=== PATIENT | male | born 1935 | race Caucasian/White ===

== ENCOUNTER 2016-07-17 12:36 | Inpatient (IN) ==
[2016-07-17] MEDS ORDERED: Ipratropium/Albuterol Neb 3 ML ONE ×2 (12:51→12:53)
--- NOTE | 2016-07-17 12:52 | Emergency Department Note ---
Disposition Clinical Impression: Acute exacerbation of chronic obstructive airways disease Acute respiratory failure Qualifiers: Respiratory failure complication: hypoxia Qualified Code(s): J96.01 - Acute respiratory failure with hypoxia Disposition: Admitted As Inpatient Condition: Good Referrals: Dane Justin MD [Primary Care Provider] - Forms: ED Satisfaction Letter SOB HPI - General Chief Complaint: ED Shortness of Breath/Dyspnea Stated Complaint: MANAV Time Seen by Provider: 07/17/16 12:45 Source: patient Limitations: no limitations Nursing Notes Reviewed: Yes Vital Signs Reviewed: Yes - History of Present Illness Pt Subjective Complaint: shortness of breath Onset (ago): day(s) (3) Severity: moderate Consistency/Duration: constant, gradually worsening Improves with: bronchodilators Worsens with: exertion Known history of: COPD Associated symptoms: Reports: wheezing. Denies: chest pain, fever, nausea/ vomiting Treatment prior to arrival: bronchodilator, other (saw PCP sent for admission) Cough present: Yes Cough Description: Involuntary Cough Frequency: Intermittent Sputum production: No Sputum Amount: None - Related Data Home Medications Medication Instructions Recorded Confirmed Aspirin [Aspirin] 325 mg PO DAILY 01/25/16 06/06/16 Clopidogrel [Plavix] 75 mg PO DAILY 01/25/16 06/06/16 Fluticasone/Salmeterol [Advair 1 each IH PRN PRN 01/25/16 06/06/16 250-50 Diskus] Lisinopril [Zestril] 5 mg PO DAILY 01/25/16 06/06/16 Metoprolol [Lopressor] 50 mg PO DAILY 01/25/16 06/06/16 Omeprazole [PriLOSEC] 20 mg PO DAILY 01/25/16 06/06/16 Rivaroxaban [Xarelto] 10 mg PO DAILY 01/25/16 06/06/16 Simvastatin [Zocor] 40 mg PO DAILY 01/25/16 06/06/16 Tamsulosin HCl [Flomax] 0.4 mcg PO BID 01/25/16 06/06/16 Allergies Allergy/AdvReac Type Severity Reaction Status Date / Time No Known Allergies Allergy Verified 07/17/16 12:42 All systems ED: reviewed and negative except as stated. Constitutional: Denies: fever, chills Gastrointestinal: Denies: nausea, vomiting Past Medical History - Past Medical History Source: patient, old records reviewed, nursing notes reviewed Medical history: Reports: COPD, DVT, GERD, hypertension, other Psychiatric history: Reports: no psych history - Social History Smoking Status: Former smoker Smokeless Tobacco Status: No Alcohol use: Reports: occasionally Drug use: Reports: none Physical Exam - General Limitations: no limitations General appearance: alert, in distress (mild respiratory) - Head Head exam: atraumatic, normocephalic, normal inspection - Eye Eye exam: Present: normal appearance, PERRL, EOMI - Expanded Eye Exam Pupils: Left: reactive - ENT ENT exam: normal exam, normal oropharynx, mucous membranes moist - Expanded ENT Exam External ear exam: Present: normal external inspection Nose exam: negative: rhinorrhea Mouth exam: Present: normal external inspection Teeth exam: Present: normal inspection Throat exam: Present: normal inspection - Neck Neck exam: Present: normal inspection, full ROM, trachea midline - Chest Chest inspection: Present: normal inspection, symmetric chest wall rise - Respiratory Respiratory exam: Present: accessory muscle use (mild), prolonged expiratory phase (bilat) - Cardiovascular Cardiovascular exam: Present: tachycardia - Abdominal Exam Abdominal exam: Present: soft, Non-Tender. Absent: tenderness, distention, guarding, rebound, rigidity - Extremities Exam Extremities exam: Present: normal inspection, full ROM. Absent: tenderness, pedal edema - Expanded Upper Extremity Exam Shoulder exam: Present: normal inspection, full ROM Arm exam: Present: normal inspection, full ROM Elbow exam: Present: normal inspection, full ROM Forearm/Wrist exam: Present: normal inspection, full ROM Hand exam: Present: normal inspection, full ROM Vascular exam: Normal: capillary refill, radial pulse - Expanded Lower Extremity Exam Hip/Pelvis exam: Present: normal inspection, full ROM Upper leg exam: Present: normal inspection, full ROM Knee exam: Present: normal inspection, full ROM Lower leg exam: Present: normal inspection, full ROM Ankle exam: Present: normal inspection, full ROM Foot/toe exam: Present: normal inspection, full ROM Neurovascular/Tendon exam: Absent: motor deficit, sensory deficit, tendon deficit - Back Exam Back exam: Present: normal inspection, full ROM. Absent: tenderness - Neurological Exam Neurological exam: Present: alert, oriented X3 - Expanded Neurological Exam Patient oriented to: Present: person, place, time Coma Scale Eye Opening: Spontaneous Coma Scale Motor Response: Obeys Commands Coma Scale Verbal Response: Oriented Coma Scale Total: 15 - Psychiatric Psychiatric exam: Present: normal affect, normal mood - Skin Skin exam: Present: warm, dry, intact, normal color Course - Reevaluation(s) Reevaluation #1: Dr. Singletary accepts Time: 14:16 Reevaluation #2: breathing less labored on 2LNC oxygen speaking without difficulty . Time: 14:17 Vital Signs Temperature 98.5 F 07/17/16 12:37 Pulse Rate 86 07/17/16 12:37 Respiratory Rate 24 07/17/16 12:37 Blood Pressure 142/67 07/17/16 12:37 O2 Sat by Pulse Oximetry 91 L 07/17/16 12:37 Temperature 98.5 F 07/17/16 12:37 Pulse Rate 86 07/17/16 12:37 Respiratory Rate 24 07/17/16 12:37 Blood Pressure 142/67 07/17/16 12:37 O2 Sat by Pulse Oximetry 91 L 07/17/16 12:37 Shortness of Breath/Dyspnea - Differential Diagnosis Likely: acute exacerbation of chronic obstructive airways disease, congestive heart failure, pneumonia, asthma with exacerbation, pulmonary embolism, pneumothorax, arrhythmia - Medical Records Medical records reviewed: Yes I reviewed the patient's medical records. - Lab Data Lab results reviewed: Yes I reviewed the patient's lab results. Result diagrams: 07/17/16 13:05 07/17/16 13:05 Lab Results 07/17/16 07/17/16 07/17/16 Range/Units 13:05 13:05 13:05 WBC 8.8 (4.3-11.1) K/mcL RBC 4.30 (4.19-5.50) M/mcL Hgb 11.5 L (12.9-16.9) g/dL Hct 36.3 L (37.5-50.1) % MCV 84.4 (83.0-100.0) fL MCH 26.7 L (28.0-33.3) pg MCHC 31.7 (31.6-35.5) g/dL RDW 14.7 H (11.5-14.5) % Plt Count 222 (140-400) K/mcL MPV 10.7 (9.4-12.4) fL Immature Gran % 0.2 (0-4) % Seg Neutrophils % 76.9 % Lymphocytes % 9.8 % Monocytes % 11.9 % Eosinophils % 0.9 % Basophils % 0.3 % Neutrophils # 6.7 (1.6-8.9) K/mcL Lymphocytes # 0.9 (0.6-4.6) K/mcL Monocytes # 1.0 (0.0-1.3) K/mcL Eosinophils # 0.1 (0.0-0.6) K/mcL Basophils # 0.0 (0.0-0.2) K/mcL PT 21.3 H (9.4-12.1) Seconds INR 1.9 Sodium 131 L (136-145) mEq/L Potassium 4.7 H (3.5-4.5) mEq/L Chloride 97 L (98-109) mEq/L Carbon Dioxide 24 (19-29) mEq/L BUN 11 (8-26) mg/dL Creatinine 0.98 (0.72-1.25) mg/dL Est GFR ( Amer) > 60 (> 60) Est GFR (Non-Af Amer) > 60 (> 60) BUN/Creatinine Ratio 11 (6-26) Glucose 106 H (70-99) mg/dL Calculated Osmolality 272 L (280-300) Calcium 9.5 (8.6-10.8) mg/dL Troponin I (0-0.03) ng/mL B-Natriuretic Peptide (0-100) pg/mL 07/17/16 07/17/16 Range/Units 13:05 13:05 WBC (4.3-11.1) K/mcL RBC (4.19-5.50) M/mcL Hgb (12.9-16.9) g/dL Hct (37.5-50.1) % MCV (83.0-100.0) fL MCH (28.0-33.3) pg MCHC (31.6-35.5) g/dL RDW (11.5-14.5) % Plt Count (140-400) K/mcL MPV (9.4-12.4) fL Immature Gran % (0-4) % Seg Neutrophils % % Lymphocytes % % Monocytes % % Eosinophils % % Basophils % % Neutrophils # (1.6-8.9) K/mcL Lymphocytes # (0.6-4.6) K/mcL Monocytes # (0.0-1.3) K/mcL Eosinophils # (0.0-0.6) K/mcL Basophils # (0.0-0.2) K/mcL PT (9.4-12.1) Seconds INR Sodium (136-145) mEq/L Potassium (3.5-4.5) mEq/L Chloride (98-109) mEq/L Carbon Dioxide (19-29) mEq/L BUN (8-26) mg/dL Creatinine (0.72-1.25) mg/dL Est GFR ( Amer) (> 60) Est GFR (Non-Af Amer) (> 60) BUN/Creatinine Ratio (6-26) Glucose (70-99) mg/dL Calculated Osmolality (280-300) Calcium (8.6-10.8) mg/dL Troponin I 0.01 (0-0.03) ng/mL B-Natriuretic Peptide 198 H (0-100) pg/mL - Radiology Data Radiology results reviewed: Yes I reviewed the patient's radiology results. - EKG Data EKG shows normal: Reports: sinus rhythm Rate: Reports: normal (83) Rhythm: Reports: NSR [place]/QRS: Reports: normal Interpretation: Reports: nonspecific ST-T wave changes
[2016-07-17] MEDS ORDERED: methylPREDNISolone 125 MG/2 ML VIAL IVP ONE (13:21)
[2016-07-17 13:24] LABS: Basophils % 0.3 %; Eosinophils # 0.1 K/mcL (0.0-0.6); Eosinophils % 0.9 %; Hematocrit 36.3 % (37.5-50.1); Hemoglobin 11.5 g/dL (12.9-16.9); Immature Granulocytes % 0.2 % (0-4); Lymphocytes # 0.9 K/mcL (0.6-4.6); Lymphocytes % 9.8 %; Mean Corpuscular HGB Conc 31.7 g/dL (31.6-35.5); Mean Corpuscular Hemoglobin 26.7 pg (28.0-33.3); Mean Corpuscular Volume 84.4 fL (83.0-100.0); Mean Platelet Volume 10.7 fL (9.4-12.4); Monocytes % 11.9 %; Neutrophils # 6.7 K/mcL (1.6-8.9); Platelet Count 222 K/mcL (140-400); Red Cell Distribution Width 14.7 % (11.5-14.5); Segmented Neutrophils % 76.9 %
[2016-07-17 13:29] LABS: INR 1.9; Prothrombin Time 21.3 Seconds (9.4-12.1)
[2016-07-17 13:38] LABS: BUN/Creatinine Ratio 11 (6-26); Blood Urea Nitrogen 11 mg/dL (8-26); Calcium 9.5 mg/dL (8.6-10.8); Carbon Dioxide 24 mEq/L (19-29); Chloride 97 mEq/L (98-109); Glucose 106 mg/dL (70-99); Osmolality,Calculated 272 (280-300); Potassium 4.7 mEq/L (3.5-4.5); Sodium 131 mEq/L (136-145); eGFR For African Americans > 60 (> 60); eGFR For Non-African Americans > 60 (> 60)
[2016-07-17] MEDS ORDERED: Levofloxacin 750 MG/150 ML 750 MG/150 ML BAG IVPB ONE (13:46)
[2016-07-17] MEDS ORDERED: Naloxone 0.4 MG/ML INJ IVP PRN (15:04)
[2016-07-17] MEDS ORDERED: Ibuprofen 400 MG TABLET PO PRN (15:04)
--- NOTE | 2016-07-17 15:17 | Internal Med History&Physical ---
Date of Encounter: 07/17/16 Time of Encounter: 15:10 Assessment and Plan (1) Acute exacerbation of chronic obstructive airways disease Current visit: Yes Status: Acute Patient with increased cough and SOB. Dyspnic on presentation to ED with RR of 24, and satting 91% on RA. Given 125mg of Methylprednisolone, duoneb treatment and levequin in ED with symptom improvement. CXR ordered 60mg methylprednisolone IVP Q12hr Duoneb treatments QIDR Albuterol nebulizer Q2hr PRN titrate O2 to maintain O2 saturation > 92% continue Levaquin IVPB daily (2) Hypertension Current visit: Yes Status: Acute Continue home doses of metoprolol and lisinopril Qualifiers: Hypertension type: essential hypertension Qualified Code(s): I10 - Essential (primary) hypertension (3) Hypercoagulable state Current visit: No Status: Chronic Patient with history of multiple DVTs and has been evaluated by Hematology. He is on aspirin, plavix and Xarelto. Continue home doses of aspirin, plavix and xarelto. (4) DVT prophylaxis Current visit: Yes Status: Acute Encourage ambulation anti-embolic stockings Continue home dose of Xarelto Internal Medicine - H&P: HPI Chief complaint: shortness of breath Admitted From: Emergency Dept Plans for Post Hospital Care: Home History of present illness: Mr. Yeung is a 81 year old male with COPD, HTN, hyperlipidemia, PVD, history of multiple DVTs, CAD, who presented to the ED with complaints of worsening cough and shortness of breath since Saturday. Patient reports he started coughing on Saturday and has had associated shortness of breath since then, getting worse. He feels like he should be able to cough something up, but has been unable to. He has had trouble sleeping because he has been coughing so much. He reports he tried his home inhalers and nebulizers without relief. He denies any fever, chills, sweats, nausea, vomiting or abdominal pain. He denies any chest pain, pain with cough or breathing, palpitations, lightheadedness or dizziness. On presentation to the ED, he was dyspnic with RR of 24 and satting 91% on room air. He was given nebulizer, oxygen and steroid and symptoms have improved. On exam, patient is alert and oriented x 3 in no distress. He is satting 94% on 2L NC. His lungs have inspiratory and expiratory wheezes. Heart has regular rate and rhythm. Past Med Surg Social Fam HX - Past Medical History Medical history: COPD, DVT, GERD, hyperlipidemia, hypertension, other Psychiatric history: no psych history - Past Surgical History Surgical History: herniorrhaphy, LE Bypass, LE vascular intervention - Social History Smoking Status: Former smoker Smokeless Tobacco Status: No Alcohol use: occasionally Drug use: none - Family History Mother Living Status: Age at : 81 Hx Family Respiratory Disorders: Yes Father Living Status: Age at : 75 Hx Family Cancer: Yes Internal Medicine - H&P: Meds Aspirin [Aspirin] 325 mg PO DAILY 01/25/16 [History] Clopidogrel [Plavix] 75 mg PO DAILY 01/25/16 [History] Fluticasone/Salmeterol [Advair 250-50 Diskus] 1 each IH BID 01/25/16 [History] Lisinopril [Zestril] 5 mg PO DAILY 01/25/16 [History] Metoprolol [Lopressor] 50 mg PO DAILY 01/25/16 [History] Omeprazole [PriLOSEC] 20 mg PO DAILY 01/25/16 [History] Rivaroxaban [Xarelto] 10 mg PO DAILY 01/25/16 [History] Tamsulosin HCl [Flomax] 0.4 mcg PO BID 01/25/16 [History] Atorvastatin [Lipitor] 40 mg PO HS 07/17/16 [History] Allergies No Known Allergies Allergy (Verified 07/17/16 12:42) All Systems PM: A 10-system review of systems was performed and is negative for pertinent findings except as documented above in the HPI. - Constitutional Constitutional: no chills, no fever(s), no night sweats - EENT Eyes: no change in vision, no discharge, no pain, no photophobia Ears: no ear discharge, no ear pain, no tinnitus Nose, mouth and throat: no dysphagia, no nasal discharge, no neck pain, no sore throat - Cardiovascular Cardiovascular ROS IM: dyspnea, no chest pain, no diaphoresis, no lightheadedness, no palpitations, no syncope - Respiratory Respiratory: cough, dyspnea, dyspnea on exertion, wheezing, no pain on inspiration, no excessive phlegm production, no pain with cough - Gastrointestinal Gastrointestinal: no abdominal pain, no diarrhea, no hematemesis, no hematochezia, no melena, no nausea, no vomiting - Musculoskeletal Musculoskeletal ROS IM: no numbness, no tingling - Integumentary Integumentary IM: no rash, no unusual bruising - Neurological Neurological ROS: no confusion, no convulsions, no focal weakness, no numbness, no tingling, no tremor(s) - Hematologic/Lymphatic Hematologic/Lymphatic: no easy bruising - Constitutional Vitals: Temp Pulse Resp BP Pulse Ox 98.5 F 86 18 144/88 91 L 07/17/16 12:37 07/17/16 12:37 07/17/16 14:58 07/17/16 14:58 07/17/16 12:37 General appearance: Present: A&O X 3, pleasant, no acute distress - Head Head exam: Present: atraumatic, normocephalic - Eye Eye exam: Present: PERRL, conjuntiva pink, sclera anicteric Pupils: Present: PERRL - Neck Neck exam general surgery: Present: supple, trachea midline. Absent: lymphadenopathy - Respiratory Respiratory exam: Present: wheezes. Absent: accessory muscle use, rales, rhonchi - Cardiovascular Cardiovascular exam: Present: RRR, +S1, +S2. Absent: diastolic murmur, gallop, rubs, systolic murmur - GI/Abdominal GI/Abdominal exam: Present: normal bowel sounds, soft, no peritoneal signs. Absent: distended, tenderness - Extremities Exam Extremities exam: Present: warm, radial pulses palpable and symetrical. Absent : calf tenderness, cyanotic, pedal edema - Neurological Exam Neurological exam: Present: CN II-XII intact, oriented X3, no focal deficits. Absent: facial droop, speech deficit - Skin Skin exam: Present: dry, intact Internal Med - H&P Results - Labs CBC & Chem 7: 07/17/16 13:05 07/17/16 13:05 Labs: All Lab Results (24 Hours) 07/17/16 07/17/16 07/17/16 Range/Units 13:05 13:05 13:05 WBC 8.8 (4.3-11.1) K/mcL RBC 4.30 (4.19-5.50) M/mcL Hgb 11.5 L (12.9-16.9) g/dL Hct 36.3 L (37.5-50.1) % MCV 84.4 (83.0-100.0) fL MCH 26.7 L (28.0-33.3) pg MCHC 31.7 (31.6-35.5) g/dL RDW 14.7 H (11.5-14.5) % Plt Count 222 (140-400) K/mcL MPV 10.7 (9.4-12.4) fL Immature Gran % 0.2 (0-4) % Seg Neutrophils % 76.9 % Lymphocytes % 9.8 % Monocytes % 11.9 % Eosinophils % 0.9 % Basophils % 0.3 % Neutrophils # 6.7 (1.6-8.9) K/mcL Lymphocytes # 0.9 (0.6-4.6) K/mcL Monocytes # 1.0 (0.0-1.3) K/mcL Eosinophils # 0.1 (0.0-0.6) K/mcL Basophils # 0.0 (0.0-0.2) K/mcL PT 21.3 H (9.4-12.1) Seconds INR 1.9 Sodium 131 L (136-145) mEq/L Potassium 4.7 H (3.5-4.5) mEq/L Chloride 97 L (98-109) mEq/L Carbon Dioxide 24 (19-29) mEq/L BUN 11 (8-26) mg/dL Creatinine 0.98 (0.72-1.25) mg/dL Est GFR ( Amer) > 60 (> 60) Est GFR (Non-Af Amer) > 60 (> 60) BUN/Creatinine Ratio 11 (6-26) Glucose 106 H (70-99) mg/dL Calculated Osmolality 272 L (280-300) Calcium 9.5 (8.6-10.8) mg/dL Troponin I (0-0.03) ng/mL B-Natriuretic Peptide (0-100) pg/mL 07/17/16 07/17/16 Range/Units 13:05 13:05 WBC (4.3-11.1) K/mcL RBC (4.19-5.50) M/mcL Hgb (12.9-16.9) g/dL Hct (37.5-50.1) % MCV (83.0-100.0) fL MCH (28.0-33.3) pg MCHC (31.6-35.5) g/dL RDW (11.5-14.5) % Plt Count (140-400) K/mcL MPV (9.4-12.4) fL Immature Gran % (0-4) % Seg Neutrophils % % Lymphocytes % % Monocytes % % Eosinophils % % Basophils % % Neutrophils # (1.6-8.9) K/mcL Lymphocytes # (0.6-4.6) K/mcL Monocytes # (0.0-1.3) K/mcL Eosinophils # (0.0-0.6) K/mcL Basophils # (0.0-0.2) K/mcL PT (9.4-12.1) Seconds INR Sodium (136-145) mEq/L Potassium (3.5-4.5) mEq/L Chloride (98-109) mEq/L Carbon Dioxide (19-29) mEq/L BUN (8-26) mg/dL Creatinine (0.72-1.25) mg/dL Est GFR ( Amer) (> 60) Est GFR (Non-Af Amer) (> 60) BUN/Creatinine Ratio (6-26) Glucose (70-99) mg/dL Calculated Osmolality (280-300) Calcium (8.6-10.8) mg/dL Troponin I 0.01 (0-0.03) ng/mL B-Natriuretic Peptide 198 H (0-100) pg/mL
[2016-07-17] MEDS: Ipratropium/Albuterol Neb 3 ML IH SCH ×2 (16:27→22:30)
[2016-07-17] MEDS: BENZOCAINE/MENTHOL 1 LOZENGE (BAG OF 6) MM PRN (22:10)
[2016-07-17] MEDS: Budesonide/Formoterol 160/4.5 MDI IH SCH (22:31)
[2016-07-18] MEDS ORDERED: methylPREDNISolone 125 MG/2 ML VIAL IVP SCH ×2 (02:00→13:00)
[2016-07-18] MEDS: BENZOCAINE/MENTHOL 1 LOZENGE (BAG OF 6) MM PRN (02:04)
[2016-07-18] MEDS: Albuterol 2.5 MG/3 ML NEBULIZER IH PRN ×3 (02:17→19:35)
[2016-07-18] MEDS: Ipratropium/Albuterol Neb 3 ML IH SCH ×4 (04:21→20:22)
[2016-07-18 05:33] LABS: Hematocrit 32.4 % (37.5-50.1); Hemoglobin 10.4 g/dL (12.9-16.9); Immature Granulocytes % 0.4 % (0-4); Lymphocytes # 0.5 K/mcL (0.6-4.6); Lymphocytes % 6.5 %; Mean Corpuscular HGB Conc 32.1 g/dL (31.6-35.5); Mean Corpuscular Hemoglobin 26.9 pg (28.0-33.3); Mean Corpuscular Volume 83.7 fL (83.0-100.0); Mean Platelet Volume 10.1 fL (9.4-12.4); Monocytes # 0.4 K/mcL (0.0-1.3); Monocytes % 4.6 %; Neutrophils # 6.8 K/mcL (1.6-8.9); Platelet Count 190 K/mcL (140-400); Red Blood Count 3.87 M/mcL (4.19-5.50); Red Cell Distribution Width 14.6 % (11.5-14.5); Segmented Neutrophils % 88.5 %
[2016-07-18 05:50] LABS: BUN/Creatinine Ratio 14 (6-26); Blood Urea Nitrogen 12 mg/dL (8-26); Calcium 9.1 mg/dL (8.6-10.8); Carbon Dioxide 24 mEq/L (19-29); Chloride 97 mEq/L (98-109); Glucose 152 mg/dL (70-99); Osmolality,Calculated 271 (280-300); Potassium 4.3 mEq/L (3.5-4.5); Sodium 129 mEq/L (136-145); eGFR For African Americans > 60 (> 60); eGFR For Non-African Americans > 60 (> 60)
[2016-07-18] MEDS ORDERED: Aspirin 325 MG TABLET PO SCH (09:00)
[2016-07-18] MEDS: Budesonide/Formoterol 160/4.5 MDI IH SCH (09:09)
[2016-07-18] MEDS: Levofloxacin 750 MG/150 ML 750 MG/150 ML BAG IVPB SCH (09:13)
[2016-07-18] MEDS: *HR* Rivaroxaban 10 MG TABLET PO SCH (09:14)
[2016-07-18] MEDS: Saline Nasal Spray 44 ML BOTTLE NS PRN ×3 (12:41→19:42)
[2016-07-18] MEDS ORDERED: Acetaminophen 325 MG TABLET PO PRN (12:59)
--- NOTE | 2016-07-18 14:29 | Internal Med Progress Note ---
Date of Encounter: 07/18/16 Time of Encounter: 14:27 - Assessment and plan (1) Acute exacerbation of chronic obstructive airways disease Current Visit: Yes Status: Acute Assessment and plan: Patient clinically better today. CXR does not show any signs of pneumonia. We will change methylprednisone to every 8hr as he still has wheezing. Duoneb treatments QIDR Albuterol nebulizer Q2hr PRN titrate O2 to maintain O2 saturation > 92% continue Levaquin IVPB daily (2) DVT prophylaxis Current Visit: Yes Status: Acute (3) Hypertension Current Visit: Yes Status: Acute Assessment and plan: Stable. Will continue home medications. Qualifiers: Hypertension type: essential hypertension Qualified Code(s): I10 - Essential (primary) hypertension (4) Hypercoagulable state Current Visit: No Status: Chronic Assessment and plan: We will continue aspirin and Plavix and xarelto on his home dose. Patient with history of multiple DVTs and has been evaluated by Hematology. - Time Spent With Patient 25 - 35 minutes - Subjective Interval history: Patient admitted for acute COPD exacerbation. First encounter with the patient. Patient was seen at the bedside this morning, reports much improvement in the breathing. He was started on IV steroids and breathing treatments. Also complains of nasal stuffiness and some sore throat. - Constitutional Vitals: Temp Pulse Resp BP Pulse Ox 97.5 F L 84 22 127/72 97 07/18/16 11:11 07/18/16 11:11 07/18/16 11:11 07/18/16 11:11 07/18/16 13:37 General appearance: Present: A&O X 3, pleasant, no acute distress Exam: General appearance: Present: A&O X 3, pleasant, no acute distress - Head Head exam: Present: atraumatic, normocephalic - Eye Eye exam: Present: PERRL, conjuntiva pink, sclera anicteric Pupils: Present: PERRL - Neck Neck exam general surgery: Present: supple, trachea midline. Absent: lymphadenopathy - Respiratory Respiratory exam: Present: wheezes. Absent: accessory muscle use, rales, rhonchi - Cardiovascular Cardiovascular exam: Present: RRR, +S1, +S2. Absent: diastolic murmur, gallop, rubs, systolic murmur - GI/Abdominal GI/Abdominal exam: Present: normal bowel sounds, soft, no peritoneal signs. Absent: distended, tenderness - Extremities Exam Extremities exam: Present: warm, radial pulses palpable and symetrical. Absent : calf tenderness, cyanotic, pedal edema - Neurological Exam Neurological exam: Present: CN II-XII intact, oriented X3, no focal deficits. Absent: facial droop, speech deficit - Skin Skin exam: Present: dry, intact Internal Medicine: Result - Labs CBC & Chem 7: 07/18/16 04:44 07/18/16 04:44 Labs: Short CBC 07/18/16 Range/Units 04:44 WBC 7.7 (4.3-11.1) K/mcL Hgb 10.4 L (12.9-16.9) g/dL Hct 32.4 L (37.5-50.1) % Plt Count 190 (140-400) K/mcL Neutrophils # 6.8 (1.6-8.9) K/mcL BMP 07/18/16 04:44 Sodium 129 L Potassium 4.3 Chloride 97 L Carbon Dioxide 24 BUN 12 Creatinine 0.87 Glucose 152 H Calcium 9.1 - ABG Interpretation ABG results: PT/INR, D-dimer PT 21.3 Seconds (9.4-12.1) H 07/17/16 13:05 - Impressions Impressions Chest X-Ray 07/17/16 15:06 IMPRESSION: No significant findings in the chest. D/ / Harry Woodward MD / Harry Woodward MD Interpreting Provider: Harry Woodward MD Consult Discharge Plan - Plan Referrals: Dane Justin MD [Primary Care Provider] - 07/26/16 9:20 am (Please take your green discharge folder with you to your appointment with all paper work inside.)
--- NOTE | 2016-07-18 15:13 | Electrocardiograph Report ---
[place] [id number] Test Date: 2016-07-17 Pat Name: Hua Yeung Department: [id number] Room: 2A26 Gender: M [employer] Fitter: : 1935 Requested By: Doug Shankar Order Number: [id number] Reading MD: Sirisha Bean Measurements Intervals [place] Rate: 83 P: 30 DC: 140 QRS: 8 QRSD: 80 T: 122 QT: 355 QTc: 395 Interpretive Statements SINUS RHYTHM NONSPECIFIC T-WAVE ABNORMALITY Electronically Signed On 07-18-2016 15:11:12 EST by Sirisha Bean
[2016-07-18] MEDS ORDERED: Furosemide 40 MG/4 ML VIAL IVP ONE (20:03)
[2016-07-18 20:17] LABS: ABG Base Excess 1.1 mEq/L (-2.0 to 3.0); ABG HCO3 25.1 mEQ/L (21-27); ABG Oxygen Saturation 95 % (95-98); ABG PCO2 37 mmHg (35-45); ABG PH 7.44 pH Units (7.32-7.45); ABG PO2 73 mmHg (85-104); ABG TCO2 26.2 mEq/L (20-26); Blood Gas FiO2 28 %
[2016-07-18] MEDS ORDERED: *HR* Morphine 2 MG/ML SYRINGE IVP ONE (22:05)
[2016-07-18] MEDS ORDERED: *HR* LORazepam 0.5 MG TABLET PO ONE (22:05)
[2016-07-18] MEDS: methylPREDNISolone 125 MG/2 ML VIAL IVP SCH (23:30)
[2016-07-19] MEDS: Ipratropium/Albuterol Neb 3 ML IH SCH ×9 (00:10→22:54)
[2016-07-19] MEDS: *HR* HYDROcodone/Acet 5/325 mg TABLET PO PRN ×2 (04:04→08:06)
[2016-07-19] MEDS: methylPREDNISolone 125 MG/2 ML VIAL IVP SCH ×4 (06:33→20:49)
[2016-07-19] MEDS: Levofloxacin 750 MG/150 ML 750 MG/150 ML BAG IVPB SCH (08:00)
[2016-07-19] MEDS: *HR* Rivaroxaban 10 MG TABLET PO SCH (08:06)
[2016-07-19] MEDS ORDERED: Aspirin Enteric Coated 325 MG Tablet PO SCH (09:00)
--- NOTE | 2016-07-19 12:12 | Internal Med Progress Note ---
Date of Encounter: 07/19/16 Time of Encounter: 10:00 - Assessment and plan (1) Acute exacerbation of chronic obstructive airways disease Current Visit: Yes Status: Acute Assessment and plan: Patient clinically better today. CXR does not show any signs of pneumonia. We will change methylprednisone to every 8hr as he still has wheezing. Duoneb treatments QIDR Albuterol nebulizer Q2hr PRN titrate O2 to maintain O2 saturation > 92% continue Levaquin IVPB daily (2) Iliopsoas muscle hematoma Current Visit: Yes Status: Acute Assessment and plan: We will hold anticoagulation and antiplatelet medication. Follow-up size change of hematoma. Pain management Qualifiers: Encounter type: initial encounter Laterality: right Qualified Code(s): S70.11XA - Contusion of right thigh, initial encounter (3) DVT prophylaxis Current Visit: Yes Status: Acute Assessment and plan: Encourage pt ambulation. No anticoagulation because of hematoma (4) Hypertension Current Visit: Yes Status: Acute Assessment and plan: Stable. Will continue home medications. Qualifiers: Hypertension type: essential hypertension Qualified Code(s): I10 - Essential (primary) hypertension (5) Hypercoagulable state Current Visit: No Status: Chronic Assessment and plan: We will hold aspirin and Plavix and xarelto because of hematoma. Patient will be reevaluated by PCP after discharge to decide when these medications can be restarted. Risk and benefit discussed with patient, patient verbalizes understanding and agreement. - Time Spent With Patient 25 - 35 minutes - Subjective Interval history: Patient is a 81-year-old male admitted for COPD exacerbation. Past medical history is significant for COPD, hypertension, hyperlipidemia, PVD, history of multiple DVT, CAD s/p two stent in 2002. Patient was seen and examined. He developed right hip pain last night. His shortness of breath is improving. Right hip CAT scan was ordered and right illopsoas intramuscular hematoma. We will hold antiplatelet and anticoagulation. Closely follow up the size change hematoma. Continue antibiotic, steroid, bronchodilator for COPD exacerbation. - Constitutional Vitals: Temp Pulse Resp BP Pulse Ox 97.8 F 83 18 118/71 97 07/19/16 11:35 07/19/16 11:35 07/19/16 11:35 07/19/16 11:35 07/19/16 11:35 General appearance: Present: A&O X 3, pleasant, no acute distress - Head Head exam: Present: atraumatic, normocephalic - Eye Eye exam: Present: PERRL, conjuntiva pink, sclera anicteric Pupils: Present: PERRL - Neck Neck exam general surgery: Present: supple, trachea midline. Absent: lymphadenopathy - Respiratory Respiratory exam: Present: CTAB, wheezes (Scattered wheezes bilaterally, Lt > Rt ). Absent: accessory muscle use, rales, rhonchi - Cardiovascular Cardiovascular exam: Present: RRR, +S1, +S2. Absent: diastolic murmur, gallop, rubs, systolic murmur - GI/Abdominal GI/Abdominal exam: Present: normal bowel sounds, soft, no peritoneal signs. Absent: distended, tenderness - Extremities Exam Extremities exam: Present: warm, radial pulses palpable and symetrical. Absent : calf tenderness, cyanotic, pedal edema - Neurological Exam Neurological exam: Present: CN II-XII intact, oriented X3, no focal deficits. Absent: pronater drift, facial droop, speech deficit - Skin Skin exam: Present: dry, intact Internal Medicine: Result - Labs CBC & Chem 7: 07/18/16 04:44 07/18/16 04:44 - ABG Interpretation ABG results: ABG ABG pH 7.44 pH Units (7.32-7.45) 07/18/16 20:00 ABG pCO2 37 mmHg (35-45) 07/18/16 20:00 ABG pO2 73 mmHg (85-104) L 07/18/16 20:00 ABG O2 Saturation 95 % (95-98) 07/18/16 20:00 PT/INR, D-dimer PT 21.3 Seconds (9.4-12.1) H 07/17/16 13:05 - Impressions Impressions Hip CT 07/19/16 10:07 IMPRESSION: 1. No acute fracture. 2. Moderate to severe right hip osteoarthritis. 3. Expanded, hyperdense appearing right iliopsoas may represent intramuscular hematoma. This is incompletely evaluated. Consider short-term interval follow up evaluation to assess for stability or resolution. The proximal extent is not identified. The findings were sent to the Radiology Results Communication Center at 10:27 am on 07/19/2016to be communicated to a licensed caregiver. D/ / 07/19/2016 11:44:33 Eric Zimmerman MD / [email or web address] Interpreting Provider: Eric Zimmerman MD - VTE Documentation of Mechanical Device: Graduated compression elastic hosiery Consult Discharge Plan - Plan Referrals: Dane Justin MD [Primary Care Provider] - 07/26/16 9:20 am (Please take your green discharge folder with you to your appointment with all paper work inside.)
[2016-07-19] MEDS ORDERED: *HR* LORazepam 2 MG/ML VIAL IVP ONE (21:07)
[2016-07-20] MEDS: Ipratropium/Albuterol Neb 3 ML IH SCH ×6 (03:44→19:50)
[2016-07-20] MEDS: *HR* HYDROcodone/Acet 5/325 mg TABLET PO PRN (04:14)
[2016-07-20 05:30] LABS: Hematocrit 30.7 % (37.5-50.1); Immature Granulocytes % 0.5 % (0-4); Mean Corpuscular HGB Conc 32.6 g/dL (31.6-35.5); Mean Corpuscular Hemoglobin 26.8 pg (28.0-33.3); Mean Corpuscular Volume 82.3 fL (83.0-100.0); Monocytes % 8.9 %; Platelet Count 201 K/mcL (140-400); Red Blood Count 3.73 M/mcL (4.19-5.50); Red Cell Distribution Width 14.5 % (11.5-14.5); Segmented Neutrophils % 85.6 %
[2016-07-20 05:31] LABS: Lymphocytes # 0.7 K/mcL (0.6-4.6); Monocytes # 1.2 K/mcL (0.0-1.3)
[2016-07-20] MEDS: methylPREDNISolone 125 MG/2 ML VIAL IVP SCH ×3 (05:32→21:29)
[2016-07-20 05:44] LABS: BUN/Creatinine Ratio 37 (6-26); Calcium 9.4 mg/dL (8.6-10.8); Carbon Dioxide 24 mEq/L (19-29); Chloride 95 mEq/L (98-109); Glucose 137 mg/dL (70-99); Osmolality,Calculated 278 (280-300); Potassium 4.5 mEq/L (3.5-4.5); Sodium 129 mEq/L (136-145); eGFR For African Americans > 60 (> 60); eGFR For Non-African Americans > 60 (> 60)
[2016-07-20 05:45] LABS: Blood Urea Nitrogen 36 mg/dL (8-26)
[2016-07-20] MEDS: Levofloxacin 750 MG/150 ML 750 MG/150 ML BAG IVPB SCH (09:10)
[2016-07-20] MEDS ORDERED: Acetylcysteine 10% 2 ML INHSOL IH SCH (09:30)
[2016-07-20] MEDS ORDERED: Ipratropium/Albuterol Neb 3 ML IH PRN (10:25)
[2016-07-20] MEDS: Acetylcysteine 10% 2 ML INHSOL IH SCH ×3 (11:15→19:51)
--- NOTE | 2016-07-20 14:29 | Oncology Inp Consult Note ---
<Jeremy Yee Jr - Last Filed: 07/20/16 17:51> Date of Encounter: 07/20/16 Time of Encounter: 16:45 Assessment and Plan (1) Hypercoagulable state Status: Chronic Assessment and plan: The patient is resting comfortably with at bedside. Patient is constipated, no BM in 4 days. I worry about straining with iliopsoas hematoma. I will order miralax BID until BM, then once daily. Soaps suds enema can be considered. Patient is known to our hematology practice. He was last seen 06/06/[address] Park. He has severe PVD, developing clots, especially lower extremities. He has been taking ASA, Plavix and xarelto 10mg daily. This combination works with no side effects for the patient. We see him annually for clinic follow up. The patient was admitted for COPD exacerbation three days ago. I believe his persistent cough has caused his current right iliopsoas hematoma. For this reason, anticoagulation stopped. Understandably, patient concerned about stoppage of treatment with his known hematologic history. He is asking if any of the three can be safe with his hematoma. I discussed case with Dr Park. At this point, we are comfortable with temporary stoppage of anticoagulation. He will discuss case further with patient and family this evening. He will leave a note and order any restart of anticoagulation medications. (2) Therapeutic opioid induced constipation Status: Acute Assessment and plan: Miralax PO BID until BM, then once daily. This works for patient at home. - Data of Consult Patient: known to practice within the last 3 years Consult date: 07/20/16 Requesting Physician: Maribel Kim MD Primary Care Provider: Dane Justin MD - Consult Narrative Reason for consult: anticoagulation history, new iliopsoas hematoma History of present illness: Mr. Yeung is a 81 year old male known to [facility]. He is a patient of Dr Germain Park saw him in consultation 01/05/14 during his hospitalization for recurrent acute limb ischemia. He does have an extensive background of peripheral vascular disease and has required aortic graft placement remotely back in 2006. In October of 2013, he presented with acute limb threat threatening ischemia and had extensive thrombectomy in the right lower extremity. He appeared to have done well after a short rehab stay, and was on Coumadin( with goal INR), Plavix and low-dose aspirin 81 mg. He presented with acute onset of left lower extremity pain on 01/03/2014. Ankle-brachial pressure index was zero, consistent with complete limb occlusion. He had emergent femoral popliteal bypass and thrombectomy by Dr. Ochoa and is on continuous anticoagulation. He did require transfusion support for coagulopathy due to Coumadin. We were asked to comment on the possibility of an occult thrombophilia given his multiple recurrent limb ischemia episodes. His most recent episode occurred while he was on anticoagulation and dual antiplatelet. I recommended thrombophilia evaluation and addition of NOACs-Xarelto to plavix and ASA 325 and stopping coumadin since his current episode likely represented a failure of his anticoagulation. Factor V leiden and prothrombin gene mutations negative. 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 Last seen in Hematology clinic on 06/06/[address] Park. His recent thrombophilia work up does not explain his clotting episodes. Clotting despite dual antiplatelet therapy and therapeutic anticoagulation suggests a hypercoagulable state. He will continue on anticoagulation and dual anti-platelet therapy (aspirin 325 mg,Plavix 75 mg and Xarelto 10mg po daily) which he is tolerating with no unexpected side effects Since he was doing so well and has no major hematologic issues, we have been seeing him on a yearly basis. Patient presented with COPD exacerbation and was admitted to [facility] on 07/17/16 . During stay, he complained of right hip pain. CT scan revealed a right iliopsoas hematoma. Anticoagulation stopped, and hematology consulted for recommendations. Past Med Surg Social Fam HX - Past Medical History Medical history: COPD, DVT, GERD, hyperlipidemia, hypertension, other Psychiatric history: no psych history - Past Surgical History Surgical History: herniorrhaphy, LE Bypass, LE vascular intervention - Social History Smoking Status: Former smoker Smokeless Tobacco Status: No Alcohol use: occasionally Drug use: none - Family History Mother Living Status: Age at : 81 Hx Family Respiratory Disorders: Yes Father Living Status: Age at : 75 Hx Family Cancer: Yes Medications and Allergies Aspirin [Aspirin] 325 mg PO DAILY 01/25/16 [History] Clopidogrel [Plavix] 75 mg PO DAILY 01/25/16 [History] Fluticasone/Salmeterol [Advair 250-50 Diskus] 1 each IH BID 01/25/16 [History] Lisinopril [Zestril] 5 mg PO DAILY 01/25/16 [History] Metoprolol [Lopressor] 50 mg PO DAILY 01/25/16 [History] Omeprazole [PriLOSEC] 20 mg PO DAILY 01/25/16 [History] Rivaroxaban [Xarelto] 10 mg PO DAILY 01/25/16 [History] Tamsulosin HCl [Flomax] 0.4 mcg PO BID 01/25/16 [History] Atorvastatin [Lipitor] 40 mg PO HS 07/17/16 [History] Allergies No Known Allergies Allergy (Verified 07/17/16 12:42) Respiratory: Present: dyspnea Musculoskeletal: Present: muscle cramps (right hip) Oncology - Exam - Constitutional Vitals: Temp Pulse Resp BP Pulse Ox 98.0 F 87 18 116/58 96 07/20/16 11:40 07/20/16 11:40 07/20/16 11:40 07/20/16 11:40 07/20/16 11:40 General appearance: average body habitus, cooperative, no acute distress - Head Head exam: Present: atraumatic, normal inspection - Eye Eye exam: Present: normal appearance, PERRL - ENT ENT exam: Present: mucous membranes moist - Neck Neck exam: Present: full ROM, normal inspection - Respiratory Respiratory exam: Present: decreased breath sounds, wheezes (expiratory scattered) - Cardiovascular Cardiovascular exam: Present: RRR, +S1, +S2 - GI/Abdominal GI/Abdominal exam: Present: distended, hypoactive bowel sounds, soft - Extremities Exam Extremities exam: Present: full ROM, normal inspection - Neurological Exam Neurological exam: Present: alert, CN II-XII intact, oriented X3, no focal deficits - Psychiatric Psychiatric exam: Present: normal affect, normal mood - Skin Skin exam: Present: dry, intact, normal color Oncology - Results - Labs Labs: Short CBC 07/20/16 Range/Units 05:01 WBC 12.9 H D (4.3-11.1) K/mcL Hgb 10.0 L (12.9-16.9) g/dL Hct 30.7 L (37.5-50.1) % Plt Count 201 (140-400) K/mcL Neutrophils # 11.0 H (1.6-8.9) K/mcL BMP 07/20/16 05:01 Sodium 129 L Potassium 4.5 Chloride 95 L Carbon Dioxide 24 BUN 36 H D Creatinine 0.97 Glucose 137 H Calcium 9.4 Consult Discharge Plan - Plan Referrals: Dane Justin MD [Primary Care Provider] - 07/26/16 9:20 am (Please take your green discharge folder with you to your appointment with all paper work inside.) <Riccardo Bragg - Last Filed: 07/21/16 10:03> Date of Encounter: 07/21/16 Assessment and Plan (1) Hypercoagulable state Status: Chronic - Data of Consult Requesting Physician: Maribel Kim MD Primary Care Provider: Dane Justin MD - Consult Narrative History of present illness: Mr. Yeung is a 81 year old male with history significant for vascular disease dating back to 1994 according to patient many had graft placement followed by another popliteal surgery in 2002. He also had coronary artery disease status post stent placement. Patient reports that he was on aspirin and Plavix, developed clots in right lower extremity 4 years ago and was on Coumadin subsequently developed clots in the left lower extremity. He was started on Xarelto 10 mg aspirin and Plavix since then. He reports no history of trauma, has COPD, not on home oxygen, had coughing spells and right groin pain due to which a CT scan of the abdomen was obtained. This shows right iliopsoas hematoma. Patient reports no pain in the right groin that is he has some pain in the left groin area today. He denies any blood in stools. His regular aspirin Plavix and Xarelto 10 mg has been discontinued. On exam patient is in mild distress to moderate distress when he tries to talk. He is on oxygen, nasal cannula with some congestion on auscultation. He denies any chest pain or lower extremity swelling or tenderness I/P Her for vascular disease, coronary artery disease on antiplatelet and anticoagulation treatment. treatment held due to bleeding hematoma. Hemoglobin appears to be stable today. Shortness of breath? Congestion, fluid overload chest x-ray imaging suggested. He will be restarted on baby aspirin today. We will obtain repeat imaging early next week and decide on plavix, subsequently add xarelto as an outpatient. Plan of care was discuused in detail with patient today and with Winston Yee CNP. Oncology - Exam - Constitutional Vitals: Temp Pulse Resp BP Pulse Ox 97.5 F L 91 18 133/76 91 L 07/21/16 07:34 07/21/16 08:00 07/21/16 07:34 07/21/16 07:34 07/21/16 07:34 Oncology - Results - Labs Labs: Short CBC 07/21/16 Range/Units 05:42 WBC 9.7 (4.3-11.1) K/mcL Hgb 9.4 L (12.9-16.9) g/dL Hct 28.8 L (37.5-50.1) % Plt Count 202 (140-400) K/mcL Neutrophils # 8.3 (1.6-8.9) K/mcL BMP 07/21/16 05:42 Sodium 127 L Potassium 4.5 Chloride 94 L Carbon Dioxide 25 BUN 26 D Creatinine 0.82 Glucose 141 H Calcium 8.9
--- NOTE | 2016-07-20 14:52 | Internal Med Progress Note ---
Date of Encounter: 07/20/16 Time of Encounter: 10:00 - Assessment and plan (1) Acute exacerbation of chronic obstructive airways disease Current Visit: Yes Status: Acute Assessment and plan: Patient clinically has improved. CXR does not show any signs of pneumonia. Taper down methylprednisone to every 12hr. Duoneb treatments QIDR, add Mucomyst because patient has cough with sputum. Albuterol nebulizer Q2hr PRN titrate O2 to maintain O2 saturation > 92% continue Levaquin IVPB daily (2) Iliopsoas muscle hematoma Current Visit: Yes Status: Acute Assessment and plan: We will hold anticoagulation and antiplatelet medication. Follow-up size change of hematoma. Pain management. Hematology consult for anticoagulation management. Qualifiers: Encounter type: initial encounter Laterality: right Qualified Code(s): S70.11XA - Contusion of right thigh, initial encounter (3) DVT prophylaxis Current Visit: Yes Status: Acute Assessment and plan: Encourage pt ambulation. No anticoagulation because of hematoma (4) Hypertension Current Visit: Yes Status: Acute Assessment and plan: Stable. Will continue home medications. Qualifiers: Hypertension type: essential hypertension Qualified Code(s): I10 - Essential (primary) hypertension (5) Hypercoagulable state Current Visit: No Status: Chronic Assessment and plan: We will hold aspirin and Plavix and xarelto because of hematoma. Hematology consult for further management - Time Spent With Patient 25 - 35 minutes - Subjective Interval history: Patient is a 81-year-old male admitted for COPD exacerbation. Past medical history is significant for COPD, hypertension, hyperlipidemia, PVD, history of multiple DVT, CAD s/p two stent in 2002. Patient was seen and examined. He has less shortness of breath. Improved oxygen saturation. Last right hip pain than yesterday. Continue antibiotic, steroid, bronchodilator for COPD exacerbation. His old chart is reviewed and he has hypercoagulation status and has been seen by hematology. For his right illopsoas intramuscular hematoma, we will call hematology consult to better balance the benefit and the risk of anticoagulation. - Constitutional Vitals: Temp Pulse Resp BP Pulse Ox 98.0 F 87 18 116/58 96 07/20/16 11:40 07/20/16 11:40 07/20/16 11:40 07/20/16 11:40 07/20/16 11:40 General appearance: Present: A&O X 3, pleasant, no acute distress - Head Head exam: Present: atraumatic, normocephalic - Eye Eye exam: Present: PERRL, conjuntiva pink, sclera anicteric Pupils: Present: PERRL - Neck Neck exam general surgery: Present: supple, trachea midline. Absent: lymphadenopathy - Respiratory Respiratory exam: Present: CTAB, wheezes (Scattered wheezes bilaterally). Absent: accessory muscle use, rales, rhonchi - Cardiovascular Cardiovascular exam: Present: RRR, +S1, +S2. Absent: diastolic murmur, gallop, rubs, systolic murmur - GI/Abdominal GI/Abdominal exam: Present: normal bowel sounds, soft, no peritoneal signs. Absent: distended, tenderness - Extremities Exam Extremities exam: Present: warm, radial pulses palpable and symetrical. Absent : calf tenderness, cyanotic, pedal edema - Neurological Exam Neurological exam: Present: CN II-XII intact, oriented X3, no focal deficits. Absent: pronater drift, facial droop, speech deficit - Skin Skin exam: Present: dry, intact Internal Medicine: Result - Labs CBC & Chem 7: 07/20/16 05:01 07/20/16 05:01 Labs: Short CBC 07/20/16 Range/Units 05:01 WBC 12.9 H D (4.3-11.1) K/mcL Hgb 10.0 L (12.9-16.9) g/dL Hct 30.7 L (37.5-50.1) % Plt Count 201 (140-400) K/mcL Neutrophils # 11.0 H (1.6-8.9) K/mcL BMP 07/20/16 05:01 Sodium 129 L Potassium 4.5 Chloride 95 L Carbon Dioxide 24 BUN 36 H D Creatinine 0.97 Glucose 137 H Calcium 9.4 - ABG Interpretation ABG results: ABG ABG pH 7.44 pH Units (7.32-7.45) 07/18/16 20:00 ABG pCO2 37 mmHg (35-45) 07/18/16 20:00 ABG pO2 73 mmHg (85-104) L 07/18/16 20:00 ABG O2 Saturation 95 % (95-98) 07/18/16 20:00 PT/INR, D-dimer PT 21.3 Seconds (9.4-12.1) H 07/17/16 13:05 - VTE Documentation of Mechanical Device: Graduated compression elastic hosiery Consult Discharge Plan - Plan Referrals: Dane Justin MD [Primary Care Provider] - 07/26/16 9:20 am (Please take your green discharge folder with you to your appointment with all paper work inside.)
--- NOTE | 2016-07-20 17:41 | Event Note ---
Date of Encounter: 07/20/16 Time of Encounter: 16:[address] Fitch, seen by our MMA FIGHTER Winston Yee for hypercoagulability. Imaging reviewed hyperdense lesion in the psoas likely related to bleeding. Anti plt and anticoagulation held currently Reimage in short interval, next wk to assess stability. Monitor Hgb/hct over the wkend. Will resume anticoag vs antiplt therapy for vascular disease in the next few days-wks. Full dictation notes to follow
[2016-07-21] MEDS: Acetylcysteine 10% 2 ML INHSOL IH SCH ×6 (00:03→23:30)
[2016-07-21] MEDS: Ipratropium/Albuterol Neb 3 ML IH SCH ×7 (00:04→23:29)
[2016-07-21] MEDS: *HR* HYDROcodone/Acet 5/325 mg TABLET PO PRN ×5 (00:37→22:54)
[2016-07-21] MEDS: methylPREDNISolone 125 MG/2 ML VIAL IVP SCH ×3 (04:22→20:13)
[2016-07-21 06:14] LABS: BUN/Creatinine Ratio 32 (6-26); Blood Urea Nitrogen 26 mg/dL (8-26); Calcium 8.9 mg/dL (8.6-10.8); Carbon Dioxide 25 mEq/L (19-29); Chloride 94 mEq/L (98-109); Glucose 141 mg/dL (70-99); Osmolality,Calculated 271 (280-300); Potassium 4.5 mEq/L (3.5-4.5); Sodium 127 mEq/L (136-145); eGFR For African Americans > 60 (> 60); eGFR For Non-African Americans > 60 (> 60)
[2016-07-21 06:21] LABS: Hematocrit 28.8 % (37.5-50.1); Hemoglobin 9.4 g/dL (12.9-16.9); Immature Granulocytes % 0.9 % (0-4); Lymphocytes # 0.6 K/mcL (0.6-4.6); Lymphocytes % 6.6 %; Mean Corpuscular HGB Conc 32.6 g/dL (31.6-35.5); Mean Corpuscular Hemoglobin 26.9 pg (28.0-33.3); Mean Corpuscular Volume 82.3 fL (83.0-100.0); Mean Platelet Volume 10.6 fL (9.4-12.4); Monocytes # 0.7 K/mcL (0.0-1.3); Monocytes % 7.1 %; Neutrophils # 8.3 K/mcL (1.6-8.9); Platelet Count 202 K/mcL (140-400); Red Cell Distribution Width 14.3 % (11.5-14.5); Segmented Neutrophils % 85.4 %
[2016-07-21] MEDS: Levofloxacin 750 MG/150 ML 750 MG/150 ML BAG IVPB SCH (07:55)
[2016-07-21] MEDS ORDERED: Furosemide 20 MG/2 ML VIAL IVP ONE (09:40)
[2016-07-21] MEDS: Aspirin Enteric Coated 81 MG Tablet PO SCH (09:57)
--- NOTE | 2016-07-21 12:34 | Internal Med Progress Note ---
Date of Encounter: 07/21/16 Time of Encounter: 10:00 - Assessment and plan (1) Acute exacerbation of chronic obstructive airways disease Current Visit: Yes Status: Acute Assessment and plan: Patient clinically has improved. CXR does not show any signs of pneumonia. Taper down methylprednisone to every 12hr. Duoneb treatments QIDR, add Mucomyst because patient has cough with sputum. Albuterol nebulizer Q2hr PRN titrate O2 to maintain O2 saturation > 92% continue Levaquin IVPB daily (2) Iliopsoas muscle hematoma Current Visit: Yes Status: Acute Assessment and plan: We will hold anticoagulation and antiplatelet medication. Follow-up size change of hematoma. Pain management. Hematology consult appreciated, will add ASA at low dose today. Qualifiers: Encounter type: initial encounter Laterality: right Qualified Code(s): S70.11XA - Contusion of right thigh, initial encounter (3) DVT prophylaxis Current Visit: Yes Status: Acute Assessment and plan: Encourage pt ambulation. No anticoagulation because of hematoma. EPCD. (4) Hypertension Current Visit: Yes Status: Acute Assessment and plan: Stable. Will continue home medications. Qualifiers: Hypertension type: essential hypertension Qualified Code(s): I10 - Essential (primary) hypertension (5) Hypercoagulable state Current Visit: No Status: Chronic Assessment and plan: We will hold Plavix and xarelto because of hematoma. Hematology consult appreciated. Will keep baby ASA. (6) Hyponatremia Current Visit: Yes Status: Acute Assessment and plan: Pt seems over hydrated, give one dose lasix. Fluid restriction at 1500 - Time Spent With Patient 25 - 35 minutes - Subjective Interval history: Patient is a 81-year-old male admitted for COPD exacerbation. Past medical history is significant for COPD, hypertension, hyperlipidemia, PVD, history of multiple DVT, CAD s/p two stent in 2002. Patient was seen and examined. He still has shortness of breath. Last right hip pain is less. Continue antibiotic, steroid, bronchodilator for COPD exacerbation. D/W valve repairer, will add baby aspirin for pt, continue hold plavix and xarelto, repeat CT in next week. Pt has hyponatremia and his lung is wet on auscultation, will place fluid restriction to 1500ml per day (pt state he drinks a lot of water), low dose lasix (20mg iv once) was given.Closely monitoring. - Constitutional Vitals: Temp Pulse Resp BP Pulse Ox 97.8 F 89 18 115/78 94 L 07/21/16 11:24 07/21/16 11:24 07/21/16 11:24 07/21/16 11:24 07/21/16 11:24 General appearance: Present: A&O X 3, pleasant, no acute distress - Head Head exam: Present: atraumatic, normocephalic - Eye Eye exam: Present: PERRL, conjuntiva pink, sclera anicteric Pupils: Present: PERRL - Neck Neck exam general surgery: Present: supple, trachea midline. Absent: lymphadenopathy - Respiratory Respiratory exam: Present: CTAB, rhonchi (Scattered wheezes and rhonchi bilaterally, mostly on lung base.), wheezes. Absent: accessory muscle use, rales - Cardiovascular Cardiovascular exam: Present: RRR, +S1, +S2. Absent: diastolic murmur, gallop, rubs, systolic murmur - GI/Abdominal GI/Abdominal exam: Present: normal bowel sounds, soft, no peritoneal signs. Absent: distended, tenderness - Extremities Exam Extremities exam: Present: warm, radial pulses palpable and symetrical. Absent : calf tenderness, cyanotic, pedal edema - Neurological Exam Neurological exam: Present: CN II-XII intact, oriented X3, no focal deficits. Absent: pronater drift, facial droop, speech deficit - Skin Skin exam: Present: dry, intact Internal Medicine: Result - Labs CBC & Chem 7: 07/21/16 05:42 07/21/16 05:42 Labs: Short CBC 07/21/16 Range/Units 05:42 WBC 9.7 (4.3-11.1) K/mcL Hgb 9.4 L (12.9-16.9) g/dL Hct 28.8 L (37.5-50.1) % Plt Count 202 (140-400) K/mcL Neutrophils # 8.3 (1.6-8.9) K/mcL BMP 07/21/16 05:42 Sodium 127 L Potassium 4.5 Chloride 94 L Carbon Dioxide 25 BUN 26 D Creatinine 0.82 Glucose 141 H Calcium 8.9 - ABG Interpretation ABG results: ABG ABG pH 7.44 pH Units (7.32-7.45) 07/18/16 20:00 ABG pCO2 37 mmHg (35-45) 07/18/16 20:00 ABG pO2 73 mmHg (85-104) L 07/18/16 20:00 ABG O2 Saturation 95 % (95-98) 07/18/16 20:00 PT/INR, D-dimer PT 21.3 Seconds (9.4-12.1) H 07/17/16 13:05 - Impressions Impressions Hip CT 07/19/16 10:07 IMPRESSION: 1. No acute fracture. 2. Moderate to severe right hip osteoarthritis. 3. Expanded, hyperdense appearing right iliopsoas may represent intramuscular hematoma. This is incompletely evaluated. Consider short-term interval follow up evaluation to assess for stability or resolution. The proximal extent is not identified. The findings were sent to the Radiology Results Communication Center at 10:27 am on 07/19/2016to be communicated to a licensed caregiver. D/ / 07/19/2016 11:44:33 Eric Zimmerman MD / [email or web address] Interpreting Provider: Eric Zimmerman MD - VTE Documentation of Mechanical Device: Graduated compression elastic hosiery Consult Discharge Plan - Plan Referrals: Dane Justin MD [Primary Care Provider] - 07/26/16 9:20 am (Please take your green discharge folder with you to your appointment with all paper work inside.)
[2016-07-22] MEDS: Ipratropium/Albuterol Neb 3 ML IH SCH ×5 (03:33→19:49)
[2016-07-22] MEDS: Acetylcysteine 10% 2 ML INHSOL IH SCH ×4 (03:34→19:50)
[2016-07-22] MEDS: methylPREDNISolone 125 MG/2 ML VIAL IVP SCH ×2 (05:27→11:38)
[2016-07-22 06:24] LABS: Hematocrit 30.4 % (37.5-50.1); Hemoglobin 10.3 g/dL (12.9-16.9); Immature Granulocytes % 0.6 % (0-4); Lymphocytes # 0.9 K/mcL (0.6-4.6); Lymphocytes % 8.5 %; Mean Corpuscular HGB Conc 33.9 g/dL (31.6-35.5); Mean Corpuscular Hemoglobin 27.4 pg (28.0-33.3); Mean Corpuscular Volume 80.9 fL (83.0-100.0); Mean Platelet Volume 10.5 fL (9.4-12.4); Monocytes # 1.1 K/mcL (0.0-1.3); Neutrophils # 8.8 K/mcL (1.6-8.9); Platelet Count 190 K/mcL (140-400); Red Blood Count 3.76 M/mcL (4.19-5.50); Segmented Neutrophils % 80.9 %
[2016-07-22 06:36] LABS: BUN/Creatinine Ratio 29 (6-26); Blood Urea Nitrogen 24 mg/dL (8-26); Carbon Dioxide 26 mEq/L (19-29); Chloride 95 mEq/L (98-109); Glucose 135 mg/dL (70-99); Osmolality,Calculated 274 (280-300); Potassium 4.3 mEq/L (3.5-4.5); Sodium 129 mEq/L (136-145); eGFR For African Americans > 60 (> 60); eGFR For Non-African Americans > 60 (> 60)
[2016-07-22] MEDS: levoFLOXacin 750 MG TABLET PO SCH (08:22)
[2016-07-22] MEDS: Aspirin Enteric Coated 81 MG Tablet PO SCH (08:23)
[2016-07-22] MEDS: *HR* HYDROcodone/Acet 5/325 mg TABLET PO PRN ×3 (08:26→20:38)
[2016-07-22] MEDS: Furosemide 20 MG TABLET PO SCH (11:38)
--- NOTE | 2016-07-22 13:10 | ECHO - Doppler Report ---
Echo with Imaging Enhancement Agent Name: Hua Yeung Date of Study: 07/22/2016 Date: 1935 Ht: 67.0 in Medical Record#: [id number] Age: 81 Wt: 157.0 lb Gender: Male BSA: 1.82 Order #: [id number] Location: [facility] Room #: 2N9 Reading Physician: Marsha Carlson DO Calf Skinner: Arina Underwood RDCS Ordering Physician: Maribel Kim MD Primary Physician: Dane Justin MD Indications: Shortness of breath Impressions: LVEF 45-50%. Mild to low normal LV systolic function. Even with use of Definity, LV wall motion could not be well visualized. There is evidence of moderate diastolic dysfunction of the left ventricle. Normal right ventricular size and function. No significant valvular dysfunction. No pulmonary hypertension. Left Ventricular Wall Motion: Rest Echo Findings The mid anterior septal, mid inferior lateral, basal anterior septal and basal inferior lateral yeager were not visualized. All other wall segments showed normal motion. Findings: Study Quality * Technically adequate exam. ECG Findings * Normal sinus rhythm. Left Ventricle * Moderate left ventricular diastolic dysfunction. * LVEF 45-50%. * Definity echo contrast was used. Aortic Valve * Aortic valve not well visualized. * No aortic stenosis. * Trace aortic regurgitation. Mitral Valve * Normal mitral valve structure. * No mitral stenosis. * Trace mitral regurgitation. Tricuspid Valve * Tricuspid valve not well visualized. * Trace tricuspid regurgitation. * Estimated RA pressure is 3 mmHg. Pulmonic Valve * Pulmonic valve is not well visualized. * No pulmonic stenosis. * No pulmonic regurgitation. Pulmonary Artery * Pulmonary artery not well visualized. Right Ventricle * Normal right ventricular structure and function. Right Atrium * Mildly dilated right atrium. Left Atrium * Moderately dilated left atrium. Interatrial Septum * Interatrial septum not well evaluated. IVC * The IVC is not well evaluated. Pericardium * There is no pericardial effusion present. History Hypertension Hypercholesteremia Family History of CAD History of CAD/PTCA Myocardial Infarction 01-08-14 a Previous Echo was performed. Contrast: Definity 1.3 ml in 8.7 ml of saline 3 ml. Measurements: BP: 127/ 73 2D Normal Values RVIDd: 3.20 cm <2.7 cm IVSd: 1.10 cm 0.6 - 1.0 cm LVIDd: 4.50 cm 3.7 - 5.6 cm LVPWd: 1.20 cm 0.6 - 1.1 cm LVIDs: 3.50 cm 1.5 - 3.6 cm AO: 2.70 cm < 4.0 cm LA: 3.70 cm 2.0 - 4.0cm %FS: 22.20 cm >25 % LVOT Diam: 2.00 cm LA volume: 84 Mitral Valve Peak E:.73 m/sec Peak A:.52 m/sec E/A Ratio:1.4 Peak E' Lat Fidel:13.3 cm/s Peak E' Med Fidel:7.8 cm/s E/E' Lat Ratio:5.5 E/E' Med Ratio:9.3 Aortic Valve AI pressure Half-time: 1003.00 msec Tricuspid Valve TV Regurg Peak Grad: 40.00mmHg TV Regurg Peak Fidel: 3.16m/sec Updated by Marsha Carlson on 07/22/2016 1:04:36 PM electronically signed on 07/22/2016 1:05:15 PM with status of Final Wall Motion Elder: 1=Normal, 2=Hypokinesis, 3=Akinesis, 4=Dyskinesis, 5=Aneurysmal, 6=Hyperkinetic, X=Not Visualized (Blank)=Missing
[2016-07-22] MEDS ORDERED: Perflutren Lipid Microsphere 1.3 ML in 0.9 % Sodium Chloride 8.7 ML IVP ONE (13:44)
--- NOTE | 2016-07-22 14:43 | Internal Med Progress Note ---
Date of Encounter: 07/22/16 Time of Encounter: 10:00 - Assessment and plan (1) Acute exacerbation of chronic obstructive airways disease Current Visit: Yes Status: Acute Assessment and plan: Patient clinically has improved. CXR does not show any signs of pneumonia. Taper down methylprednisone to prednisone by mouth Duoneb treatments QIDR, add Mucomyst because patient has cough with sputum. Albuterol nebulizer Q2hr PRN titrate O2 to maintain O2 saturation > 92% continue Levaquin IVPB daily (2) Iliopsoas muscle hematoma Current Visit: Yes Status: Acute Assessment and plan: We will hold anticoagulation and antiplatelet medication. Follow-up size change of hematoma. Pain management. Hematology consult appreciated, on ASA at low dose. Qualifiers: Encounter type: initial encounter Laterality: right Qualified Code(s): S70.11XA - Contusion of right thigh, initial encounter (3) DVT prophylaxis Current Visit: Yes Status: Acute Assessment and plan: Encourage pt ambulation. No anticoagulation because of hematoma. EPCD. (4) Hypertension Current Visit: Yes Status: Acute Assessment and plan: Stable. Will continue home medications. Qualifiers: Hypertension type: essential hypertension Qualified Code(s): I10 - Essential (primary) hypertension (5) Hypercoagulable state Current Visit: No Status: Chronic Assessment and plan: We will hold Plavix and xarelto because of hematoma. Hematology consult appreciated. Will keep baby ASA. (6) Hyponatremia Current Visit: Yes Status: Acute Assessment and plan: Pt seems over hydrated, give one dose lasix. Fluid restriction at 1500. Slightly improved the hyponatremia (7) CHF (congestive heart failure) Current Visit: Yes Status: Chronic Assessment and plan: Echo shows combined systolic and diastolic CHF. Patient is on metoprolol, and JOSELITO inhibitor already. Add Lasix by mouth 20 mg daily today. Cardiology consult for newly diagnosed CHF. Qualifiers: Congestive heart failure type: combined Qualified Code(s): I50.42 - Chronic combined systolic (congestive) and diastolic (congestive) heart failure - Time Spent With Patient 25 - 35 minutes - Subjective Interval history: Patient is a 81-year-old male admitted for COPD exacerbation. Past medical history is significant for COPD, hypertension, hyperlipidemia, PVD, history of multiple DVT, CAD s/p two stent in 2002. Patient was seen and examined. His shortness of breath has significantly improved after Lasix use. Echo done shows systolic and diastolic CHF. Lasix 20 mg by mouth daily added. Continue antibiotic, steroid, bronchodilator for COPD exacerbation. continue fluid restriction to 1500ml per day (pt state he drinks a lot of water) for hyponatremia. Consult cardiology for newly diagnosed CHF. - Constitutional Vitals: Temp Pulse Resp BP Pulse Ox 97.8 F 81 18 128/63 96 07/22/16 11:41 07/22/16 11:41 07/22/16 11:41 07/22/16 11:41 07/22/16 11:41 General appearance: Present: A&O X 3, pleasant, no acute distress - Head Head exam: Present: atraumatic, normocephalic - Eye Eye exam: Present: PERRL, conjuntiva pink, sclera anicteric Pupils: Present: PERRL - Neck Neck exam general surgery: Present: supple, trachea midline. Absent: lymphadenopathy - Respiratory Respiratory exam: Present: CTAB. Absent: accessory muscle use, rales, rhonchi, wheezes - Cardiovascular Cardiovascular exam: Present: RRR, +S1, +S2. Absent: diastolic murmur, gallop, rubs, systolic murmur - GI/Abdominal GI/Abdominal exam: Present: normal bowel sounds, soft, no peritoneal signs. Absent: distended, tenderness - Extremities Exam Extremities exam: Present: warm, radial pulses palpable and symetrical. Absent : calf tenderness, cyanotic, pedal edema - Neurological Exam Neurological exam: Present: CN II-XII intact, oriented X3, no focal deficits. Absent: pronater drift, facial droop, speech deficit - Skin Skin exam: Present: dry, intact Internal Medicine: Result - Labs CBC & Chem 7: 07/22/16 05:56 07/22/16 05:56 Labs: Short CBC 07/22/16 Range/Units 05:56 WBC 10.9 (4.3-11.1) K/mcL Hgb 10.3 L (12.9-16.9) g/dL Hct 30.4 L (37.5-50.1) % Plt Count 190 (140-400) K/mcL Neutrophils # 8.8 (1.6-8.9) K/mcL BMP 07/22/16 05:56 Sodium 129 L Potassium 4.3 Chloride 95 L Carbon Dioxide 26 BUN 24 Creatinine 0.82 Glucose 135 H Calcium 9.0 - ABG Interpretation ABG results: ABG ABG pH 7.44 pH Units (7.32-7.45) 07/18/16 20:00 ABG pCO2 37 mmHg (35-45) 07/18/16 20:00 ABG pO2 73 mmHg (85-104) L 07/18/16 20:00 ABG O2 Saturation 95 % (95-98) 07/18/16 20:00 PT/INR, D-dimer PT 21.3 Seconds (9.4-12.1) H 07/17/16 13:05 - VTE Documentation of Mechanical Device: Graduated compression elastic hosiery Consult Discharge Plan - Plan Referrals: Nhan,Dane Guzmán MD [Primary Care Provider] - 07/26/16 9:20 am (Please take your green discharge folder with you to your appointment with all paper work inside.)
[2016-07-22] MEDS: predniSONE 20 MG TABLET PO SCH (15:21)
[2016-07-23] MEDS: *HR* HYDROcodone/Acet 5/325 mg TABLET PO PRN ×4 (00:49→19:35)
[2016-07-23] MEDS: Acetylcysteine 10% 2 ML INHSOL IH SCH ×3 (04:20→08:06)
[2016-07-23] MEDS: Ipratropium/Albuterol Neb 3 ML IH SCH ×7 (04:20→23:36)
[2016-07-23 06:22] LABS: Basophils % 0.1 %; Hematocrit 31.3 % (37.5-50.1); Hemoglobin 10.4 g/dL (12.9-16.9); Immature Granulocytes % 0.9 % (0-4); Lymphocytes # 1.5 K/mcL (0.6-4.6); Lymphocytes % 11.3 %; Mean Corpuscular HGB Conc 33.2 g/dL (31.6-35.5); Mean Corpuscular Hemoglobin 27.3 pg (28.0-33.3); Mean Corpuscular Volume 82.2 fL (83.0-100.0); Mean Platelet Volume 10.7 fL (9.4-12.4); Monocytes % 15.1 %; Neutrophils # 9.4 K/mcL (1.6-8.9); Platelet Count 180 K/mcL (140-400); Red Blood Count 3.81 M/mcL (4.19-5.50); Red Cell Distribution Width 14.1 % (11.5-14.5); Segmented Neutrophils % 72.6 %
[2016-07-23 06:47] LABS: BUN/Creatinine Ratio 33 (6-26); Blood Urea Nitrogen 27 mg/dL (8-26); Carbon Dioxide 29 mEq/L (19-29); Chloride 95 mEq/L (98-109); Glucose 107 mg/dL (70-99); Osmolality,Calculated 278 (280-300); Potassium 4.1 mEq/L (3.5-4.5); Sodium 131 mEq/L (136-145); eGFR For African Americans > 60 (> 60); eGFR For Non-African Americans > 60 (> 60)
[2016-07-23] MEDS: Aspirin Enteric Coated 81 MG Tablet PO SCH (08:58)
[2016-07-23] MEDS: Furosemide 20 MG TABLET PO SCH (08:58)
[2016-07-23] MEDS: levoFLOXacin 750 MG TABLET PO SCH (08:58)
[2016-07-23] MEDS: predniSONE 20 MG TABLET PO SCH (08:59)
--- NOTE | 2016-07-23 09:13 | Cardiology Consult Note ---
Date of Encounter: 07/23/16 Time of Encounter: 08:45 Assessment and Plan (1) CAD (coronary artery disease) Current Visit: Yes Status: Acute H/o GA in 2001 with PCI x 2 at that time. Stress test 4 weeks ago at [facility] was normal per pt. TTE shows slightly improved EF. Pt is pain free. No indication for further cardiac testing at this time. Continue statin and bb. Restart asa when felt to be safe from a bleeding standpoint. Cardiology will sign off. Pt follows with Dr. Grant in [place] and should be scheduled to see him in 2 weeks. Qualifiers: Coronary Disease-Associated Artery/Lesion type: [place] artery [place] vs. transplanted heart: [place] heart Associated angina: without angina Qualified Code(s): I25.10 - Atherosclerotic heart disease of [place] coronary artery without angina pectoris (2) Acute exacerbation of chronic obstructive airways disease Current Visit: Yes Status: Acute Management per Im. (3) Iliopsoas muscle hematoma Current Visit: Yes Status: Acute Antiplatlet and anticoagulation on hold. Pt continues to have increasing groin pain and cough. Management per IM. Qualifiers: Encounter type: initial encounter Laterality: right Qualified Code(s): S70.11XA - Contusion of right thigh, initial encounter (4) CHF (congestive heart failure) Current Visit: Yes Status: Chronic Known systolic dysfunction. EF 45% in 2013 and now 45-50%. No overt heart failure seen seen on exam. CXR was negative. BNP only 198. Pt reports weight loss. Continue arianne-inhibitor and BB. No further cardiac testing indicated. Call with questions. Qualifiers: Congestive heart failure type: combined Qualified Code(s): I50.42 - Chronic combined systolic (congestive) and diastolic (congestive) heart failure Discussion w patient/family: The assessment and plan as outlined above was discussed with the patient and/or family members who expressed understanding and agreement. All questions were answered. Thank you for involving us in the care of your patient. Please call with any questions. History of Present Illness Consult date: 07/23/16 Requesting physician: Maribel Kim Consult reason: CHF Chief complaint: SOB, cough and abdominal pain History of present illness: Mr. Yeung is a 81 year old male with a history of CAD, s/p GA in 2001, multiple cardiomyopathy, COPD, multiple DVT, HTN, and HLD. He presents with cough and SOB increasing over the past week. He also c/o increasing bilateral groin pain with coughing. Cardiology consulted for low EF seen on TTE. CXR showed no acute abnormality. BNP 07/17/16 was 198. TTE showed EF 45-50%, low normal systolic dysfunction, moderate diastolic dysfunction, and no significant valvular disease. TTE in 2014 showed EF 45%. He is being treated for COPD exacerbation. He unfortunately was found to have a iliopsoas hematoma. His xarelto, plavix, and asa are on hold. Hematology following d/t history of hypercoagulable state. Pt denies chest pain. Denies weight gain or edema. Denies orthopnea. C/o persistent cough and inability to cough anything up. Past Med Surg Social Fam HX - Past Medical History Medical history: cardiomyopathy, COPD, coronary artery disease, DVT, GERD, hyperlipidemia, hypertension, other Psychiatric history: no psych history - Past Surgical History Surgical History: herniorrhaphy, LE Bypass, LE vascular intervention - Social History Smoking Status: Former smoker Smokeless Tobacco Status: No Alcohol use: occasionally Drug use: none - Family History Mother Living Status: Age at : 81 Hx Family Respiratory Disorders: Yes Father Living Status: Age at : 75 Hx Family Cancer: Yes Medications and Allergies Aspirin [Aspirin] 325 mg PO DAILY 01/25/16 [History] Clopidogrel [Plavix] 75 mg PO DAILY 01/25/16 [History] Fluticasone/Salmeterol [Advair 250-50 Diskus] 1 each IH BID 01/25/16 [History] Lisinopril [Zestril] 5 mg PO DAILY 01/25/16 [History] Metoprolol [Lopressor] 50 mg PO DAILY 01/25/16 [History] Omeprazole [PriLOSEC] 20 mg PO DAILY 01/25/16 [History] Rivaroxaban [Xarelto] 10 mg PO DAILY 01/25/16 [History] Tamsulosin HCl [Flomax] 0.4 mcg PO BID 01/25/16 [History] Atorvastatin [Lipitor] 40 mg PO HS 07/17/16 [History] Allergies No Known Allergies Allergy (Verified 07/17/16 12:42) All Systems Review: A 10-system review of systems was performed and is negative for pertinent findings except as documented above in the HPI. Physical Examination Vital Signs, Last 4 Hours Temp Pulse Resp BP Pulse Ox 07/23/16 08:08 18 134/76 91 L 07/23/16 07:52 97.5 F L 92 18 134/76 94 L 07/23/16 07:43 90 95 General: Conversant, No Apparent Distress HEENT: Atraumatic, Normocephaly, Mucus Membranes Moist Neck: No JVD, Normal carotid pulses Cardiac: Reg Rate and Rhythm, Normal S1 and S2, No Murmur, Other (ST with PAC) Lungs: Other (tachypnea on exam, dry cough noted. Lung sounds diminished.) Neuro: Alert and responsive, No focal deficits noted Abdomen: Soft, Non-Tender Skin: No rashes noted on visualized skin Musculoskeletal: No Chest Wall Tenderness Extremities: No Clubbing, No Cyanosis, No Edema, Normal Pulses Results 07/23/16 05:28 07/23/16 05:28 Lab Results 07/23/16 07/23/16 05:28 05:28 WBC 12.9 H Hgb 10.4 L Hct 31.3 L Plt Count 180 Sodium 131 L Potassium 4.1 Chloride 95 L Carbon Dioxide 29 BUN 27 H Creatinine 0.82 Glucose 107 H Calcium 9.0 Chest X-Ray 07/17/16 15:06 IMPRESSION: No significant findings in the chest. D/ / Harry Woodward MD / Harry Woodward MD Interpreting Provider: Harry Woodward MD Hip CT 07/19/16 10:07 IMPRESSION: 1. No acute fracture. 2. Moderate to severe right hip osteoarthritis. 3. Expanded, hyperdense appearing right iliopsoas may represent intramuscular hematoma. This is incompletely evaluated. Consider short-term interval follow up evaluation to assess for stability or resolution. The proximal extent is not identified. The findings were sent to the Radiology Results Communication Center at 10:27 am on 07/19/2016to be communicated to a licensed caregiver. D/ / 07/19/2016 11:44:33 Eric Zimmerman MD / [email or web address] Interpreting Provider: Eric Zimmerman MD - Imaging and Cardiology Echo: report reviewed (EF 45-50%, moderate diastolic dysfunction, no significant valvular disease.) - EKG Interpretation EKG results cardiology: personally reviewed (EKG shows SR with non specific ST changes) Consult Discharge Plan - Plan Referrals: Dane Justin MD [Primary Care Provider] - 07/26/16 9:20 am (Please take your green discharge folder with you to your appointment with all paper work inside.)
--- NOTE | 2016-07-23 12:57 | Internal Med Progress Note ---
Date of Encounter: 07/23/16 Time of Encounter: 10:00 - Assessment and plan (1) Acute exacerbation of chronic obstructive airways disease Current Visit: Yes Status: Acute Assessment and plan: Patient clinically has improved. CXR does not show any signs of pneumonia. Taper down methylprednisone to prednisone by mouth Duoneb treatments QIDR. Albuterol nebulizer Q2hr PRN titrate O2 to maintain O2 saturation > 92% continue Levaquin IVPB daily (2) Iliopsoas muscle hematoma Current Visit: Yes Status: Acute Assessment and plan: We will hold anticoagulation and antiplatelet medication. Follow-up size change of hematoma. Pain management. Hematology consult appreciated, on ASA at low dose. Repeated abdominal CAT scan today shows hematoma is stable Qualifiers: Encounter type: initial encounter Laterality: right Qualified Code(s): S70.11XA - Contusion of right thigh, initial encounter (3) DVT prophylaxis Current Visit: Yes Status: Acute Assessment and plan: Encourage pt ambulation. No anticoagulation because of hematoma. EPCD. (4) Hypertension Current Visit: Yes Status: Acute Assessment and plan: Stable. Will continue home medications. Qualifiers: Hypertension type: essential hypertension Qualified Code(s): I10 - Essential (primary) hypertension (5) Hypercoagulable state Current Visit: No Status: Chronic Assessment and plan: We will hold Plavix and xarelto because of hematoma. Hematology consult appreciated. Will keep baby ASA. (6) Hyponatremia Current Visit: Yes Status: Acute Assessment and plan: Pt seems over hydrated. Keep fluid restriction at 1500. Slightly improved the hyponatremia (7) CHF (congestive heart failure) Current Visit: Yes Status: Chronic Assessment and plan: Echo shows combined systolic and diastolic CHF. Patient is on metoprolol, and JOSELITO inhibitor already. Cardiology consult appreciated. CHF is not new and no signs of exacerbation, continue current treatment. Qualifiers: Congestive heart failure type: combined Qualified Code(s): I50.42 - Chronic combined systolic (congestive) and diastolic (congestive) heart failure - Time Spent With Patient 25 - 35 minutes - Subjective Interval history: Patient is a 81-year-old male admitted for COPD exacerbation. Past medical history is significant for COPD, hypertension, hyperlipidemia, PVD, history of multiple DVT, CAD s/p two stent in 2002. Patient was seen and examined. His shortness of breath has significantly improved. Cardiology consult appreciated, patient has CHF previously, no signs of exacerbation. Continue antibiotic, steroid, bronchodilator for COPD exacerbation. continue fluid restriction to 1500ml per day (pt state he drinks a lot of water) for hyponatremia. Patient has severe nonproductive cough, and robitussin AC qid. Repeat CAT scan shows hematoma is stable. - Constitutional Vitals: Temp Pulse Resp BP Pulse Ox 97.8 F 81 18 84/58 97 07/23/16 11:38 07/23/16 12:36 07/23/16 11:38 07/23/16 11:38 07/23/16 12:36 General appearance: Present: A&O X 3, pleasant, no acute distress - Head Head exam: Present: atraumatic, normocephalic - Eye Eye exam: Present: PERRL, conjuntiva pink, sclera anicteric Pupils: Present: PERRL - Neck Neck exam general surgery: Present: supple, trachea midline. Absent: lymphadenopathy - Respiratory Respiratory exam: Present: CTAB. Absent: accessory muscle use, rales, rhonchi, wheezes - Cardiovascular Cardiovascular exam: Present: RRR, +S1, +S2. Absent: diastolic murmur, gallop, rubs, systolic murmur - GI/Abdominal GI/Abdominal exam: Present: normal bowel sounds, soft, no peritoneal signs. Absent: distended, tenderness - Extremities Exam Extremities exam: Present: warm, radial pulses palpable and symetrical. Absent : calf tenderness, cyanotic, pedal edema - Neurological Exam Neurological exam: Present: CN II-XII intact, oriented X3, no focal deficits. Absent: pronater drift, facial droop, speech deficit - Skin Skin exam: Present: dry, intact Internal Medicine: Result - Labs CBC & Chem 7: 07/23/16 05:28 07/23/16 05:28 Labs: Short CBC 07/23/16 Range/Units 05:28 WBC 12.9 H (4.3-11.1) K/mcL Hgb 10.4 L (12.9-16.9) g/dL Hct 31.3 L (37.5-50.1) % Plt Count 180 (140-400) K/mcL Neutrophils # 9.4 H (1.6-8.9) K/mcL BMP 07/23/16 05:28 Sodium 131 L Potassium 4.1 Chloride 95 L Carbon Dioxide 29 BUN 27 H Creatinine 0.82 Glucose 107 H Calcium 9.0 - ABG Interpretation ABG results: ABG ABG pH 7.44 pH Units (7.32-7.45) 07/18/16 20:00 ABG pCO2 37 mmHg (35-45) 07/18/16 20:00 ABG pO2 73 mmHg (85-104) L 07/18/16 20:00 ABG O2 Saturation 95 % (95-98) 07/18/16 20:00 PT/INR, D-dimer PT 21.3 Seconds (9.4-12.1) H 07/17/16 13:05 - Impressions Impressions Abdomen/Pelvis CT 07/23/16 11:00 IMPRESSION: 1. Postsurgical changes are noted from aortoiliac stent graft and fem-fem bypass graft with straining near the common femoral arteries bilaterally, right side greater than left, similar to the study on 07/19/2016. The hematoma in the right psoas muscle is stable. 2. There is an infraumbilical hernia containing fat. 3. Hiatal hernia. 4. There is a low-attenuation lesion in the liver with a Hounsfield attenuation of -3 measuring 9 mm, most compatible with a benign cyst. 5. Extensive atherosclerotic disease. D/ / 07/23/2016 12:10:32 Jony Alberto MD / [email or web address] Interpreting Provider: Jony Alberto MD - VTE Documentation of Mechanical Device: Graduated compression elastic hosiery Consult Discharge Plan - Plan Referrals: Dane Justin MD [Primary Care Provider] - 07/26/16 9:20 am (Please take your green discharge folder with you to your appointment with all paper work inside.)
[2016-07-23] MEDS ORDERED: GuaiFENesin/Codeine Oral Soln 5 ML UDC PO ONE (14:06)
--- NOTE | 2016-07-23 17:55 | Oncology Inp Progress Note ---
Date of Encounter: 07/23/16 Time of Encounter: 17:00 (1) Peripheral vascular disease Current Visit: No Status: Chronic Assessment and plan: Hypercoagulability testing in the past has been negative. He has had extensive intervention done for arterial disease. He has been on aspirin, Plavix and xarelto for the past 2 years without any acute arterial event, and hence seems to be controlled on this regimen. Antiplatelet agents and anticoagulant have now been held in view of the hematoma. Aspirin 81 mg has been restarted yesterday. CT of the abdomen and pelvis done today shows that the hematoma is stable. Recommend the Plavix to be restarted tomorrow morning and repeating a CT of the abdomen and pelvis with contrast after 5 days of starting Plavix. Xarelto can be introduced after the CT shows that the hematoma is still stable. The patient is to follow up with Dr. Rosa Flores after discharge. (2) Iliopsoas muscle hematoma Current Visit: Yes Status: Acute Assessment and plan: Secondary to severe cough, stable on a CT done today. Qualifiers: Encounter type: initial encounter Laterality: right Qualified Code(s): S70.11XA - Contusion of right thigh, initial encounter Oncology: Subj Interval history: The patient reports continued pain in the bilateral groin area, especially with coughing. The cough itself is slightly better with cough syrup. He reports that he has not been able to walk much because of shortness of breath. He reports anxiety over not being on any antiplatelet for anticoagulant because of his extensive history of peripheral vascular disease. - Constitutional Vitals: Vital Signs Temp Pulse Resp BP Pulse Ox 07/23/16 15:38 97.7 F 83 97 07/23/16 14:31 85 98 07/23/16 12:36 81 97 07/23/16 11:38 97.8 F 81 18 84/58 97 07/23/16 09:42 107 07/23/16 08:08 18 134/76 91 L 07/23/16 07:52 97.5 F L 92 18 134/76 94 L 07/23/16 07:43 90 95 07/23/16 04:22 20 96 07/23/16 04:19 98.0 F 87 16 128/82 95 07/23/16 04:15 73 07/23/16 00:46 98.7 F 99 17 132/61 93 L 07/23/16 00:40 67 07/23/16 00:01 24 95 07/22/16 20:38 98.3 F 96 16 127/87 93 L 07/22/16 20:20 95 07/22/16 19:50 20 99 Intake and Output 07/23/16 07/23/16 07/24/16 08:59 16:59 00:59 Intake Total 290 / 290 240 / 240 Output Total 325 / 325 350 / 350 Balance -35 / -35 -350 / -350 240 / 240 Intake: Oral 290 / 290 240 / 240 Output: Urine 325 / 325 350 / 350 Other: Meal Breakfast Lunch Dinner Percent of Meal Consumed 50% 40% 5% Weight 70 kg Patient Weight 07/24/16 00:59 Weight 70 kg General appearance: average body habitus, cooperative, no acute distress - Head Head exam: Present: atraumatic, normocephalic - Eye Eye exam: Present: EOMI, PERRL, conjuntiva pink - ENT ENT exam: Present: mucous membranes moist, normal oropharynx - Neck Neck exam: Present: full ROM, normal inspection - Respiratory Respiratory exam: Present: decreased breath sounds, prolonged expiratory phase - Cardiovascular Cardiovascular exam: Present: RRR, +S1, +S2 - GI/Abdominal GI/Abdominal exam: Present: normal bowel sounds, soft Additional comments: No tenderness in the abdomen or groin, no evidence of any bruising. - Extremities Exam Extremities exam: Present: full ROM, normal inspection - Neurological Exam Neurological exam: Present: alert, altered, oriented X3, no focal deficits Oncology: Obj Data - Labs CBC & Chem 7: 07/23/16 05:28 07/23/16 05:28 Labs: Laboratory Results - last 24 hr 07/23/16 07/23/16 05:28 05:28 WBC 12.9 H RBC 3.81 L Hgb 10.4 L Hct 31.3 L MCV 82.2 L MCH 27.3 L MCHC 33.2 RDW 14.1 Plt Count 180 MPV 10.7 Immature Gran % 0.9 Seg Neutrophils % 72.6 Lymphocytes % 11.3 Monocytes % 15.1 Eosinophils % 0.0 Basophils % 0.1 Neutrophils # 9.4 H Lymphocytes # 1.5 Monocytes # 2.0 H Eosinophils # 0.0 Basophils # 0.0 Sodium 131 L Potassium 4.1 Chloride 95 L Carbon Dioxide 29 BUN 27 H Creatinine 0.82 Est GFR ( Amer) > 60 Est GFR (Non-Af Amer) > 60 BUN/Creatinine Ratio 33 H Glucose 107 H Calculated Osmolality 278 L Calcium 9.0 - Impressions Impressions Abdomen/Pelvis CT 07/23/16 11:00 IMPRESSION: 1. Postsurgical changes are noted from aortoiliac stent graft and fem-fem bypass graft with stranding near the common femoral arteries bilaterally, right side greater than left, similar to the study on 07/19/2016. The hematoma in the right psoas muscle is stable. 2. There is an infraumbilical hernia containing fat. 3. Hiatal hernia. 4. There is a low-attenuation lesion in the liver with a Hounsfield attenuation of -3 measuring 9 mm, most compatible with a benign cyst. 5. Extensive atherosclerotic disease. D/ / 07/23/2016 12:10:32 Jony Alberto MD / [facility] Interpreting Provider: Jony Alberto MD - ABG Interpretation ABG results: ABG ABG pH 7.44 pH Units (7.32-7.45) 07/18/16 20:00 ABG pCO2 37 mmHg (35-45) 07/18/16 20:00 ABG pO2 73 mmHg (85-104) L 07/18/16 20:00 ABG O2 Saturation 95 % (95-98) 07/18/16 20:00 PT/INR, D-dimer PT 21.3 Seconds (9.4-12.1) H 07/17/16 13:05 Consult Discharge Plan - Plan Referrals: Dane Justin MD [Primary Care Provider] - 07/26/16 9:20 am (Please take your green discharge folder with you to your appointment with all paper work inside.)
[2016-07-23] MEDS: GuaiFENesin/Codeine Oral Soln 5 ML UDC PO SCH (18:32)
[2016-07-24] MEDS: GuaiFENesin/Codeine Oral Soln 5 ML UDC PO SCH ×5 (00:27→23:54)
[2016-07-24] MEDS: Ipratropium/Albuterol Neb 3 ML IH SCH ×5 (03:32→20:36)
[2016-07-24 04:59] LABS: Basophils % 0.2 %; Eosinophils % 0.2 %; Hematocrit 32.5 % (37.5-50.1); Hemoglobin 10.8 g/dL (12.9-16.9); Immature Granulocytes % 1.4 % (0-4); Lymphocytes # 2.4 K/mcL (0.6-4.6); Lymphocytes % 18.3 %; Mean Corpuscular HGB Conc 33.2 g/dL (31.6-35.5); Mean Corpuscular Hemoglobin 27.3 pg (28.0-33.3); Mean Corpuscular Volume 82.3 fL (83.0-100.0); Mean Platelet Volume 9.7 fL (9.4-12.4); Monocytes # 1.7 K/mcL (0.0-1.3); Monocytes % 13.2 %; Neutrophils # 8.7 K/mcL (1.6-8.9); Platelet Count 251 K/mcL (140-400); Red Blood Count 3.95 M/mcL (4.19-5.50); Red Cell Distribution Width 14.2 % (11.5-14.5); Segmented Neutrophils % 66.7 %
[2016-07-24 05:12] LABS: BUN/Creatinine Ratio 33 (6-26); Blood Urea Nitrogen 28 mg/dL (8-26); Calcium 8.8 mg/dL (8.6-10.8); Carbon Dioxide 30 mEq/L (19-29); Chloride 95 mEq/L (98-109); Glucose 93 mg/dL (70-99); Osmolality,Calculated 279 (280-300); Sodium 132 mEq/L (136-145); eGFR For African Americans > 60 (> 60); eGFR For Non-African Americans > 60 (> 60)
[2016-07-24] MEDS: levoFLOXacin 750 MG TABLET PO SCH (08:09)
[2016-07-24] MEDS: predniSONE 20 MG TABLET PO SCH (08:09)
[2016-07-24] MEDS: Aspirin Enteric Coated 81 MG Tablet PO SCH (08:10)
[2016-07-24] MEDS ORDERED: 0.9 % Sodium Chloride 500 ML IVC ONE (09:28)
[2016-07-24] MEDS ORDERED: 0.9 % Sodium Chloride 500 ML ONE (09:30)
--- NOTE | 2016-07-24 15:24 | Internal Med Progress Note ---
Date of Encounter: 07/24/16 Time of Encounter: 10:00 - Assessment and plan (1) Acute exacerbation of chronic obstructive airways disease Current Visit: Yes Status: Acute Assessment and plan: Patient clinically has improved. CXR does not show any signs of pneumonia. Taper down methylprednisone to prednisone by mouth Duoneb treatments QIDR. Albuterol nebulizer Q2hr PRN titrate O2 to maintain O2 saturation > 92% continue Levaquin IVPB daily (2) Iliopsoas muscle hematoma Current Visit: Yes Status: Acute Assessment and plan: We will hold anticoagulation and antiplatelet medication. Follow-up size change of hematoma. Pain management. Hematology consult appreciated, on ASA at low dose. Repeated abdominal CAT scan today shows hematoma is stable. Restart Plavix today Qualifiers: Encounter type: initial encounter Laterality: right Qualified Code(s): S70.11XA - Contusion of right thigh, initial encounter (3) DVT prophylaxis Current Visit: Yes Status: Acute Assessment and plan: Encourage pt ambulation. No anticoagulation because of hematoma. EPCD. (4) Hypertension Current Visit: Yes Status: Acute Assessment and plan: Stable. Will continue home medications. Qualifiers: Hypertension type: essential hypertension Qualified Code(s): I10 - Essential (primary) hypertension (5) Hypercoagulable state Current Visit: No Status: Chronic Assessment and plan: We will hold xarelto because of hematoma. Hematology consult appreciated. Baby ASA and Plavix restarted. (6) Hyponatremia Current Visit: Yes Status: Acute Assessment and plan: Pt seems over hydrated. Keep fluid restriction at 1500. Slightly improved the hyponatremia (7) CHF (congestive heart failure) Current Visit: Yes Status: Chronic Assessment and plan: Echo shows combined systolic and diastolic CHF. Patient is on metoprolol, and JOSELITO inhibitor already. Cardiology consult appreciated. CHF is not new and no signs of exacerbation, continue current treatment. Qualifiers: Congestive heart failure type: combined Qualified Code(s): I50.42 - Chronic combined systolic (congestive) and diastolic (congestive) heart failure - Time Spent With Patient 25 - 35 minutes - Subjective Interval history: Patient is a 81-year-old male admitted for COPD exacerbation. Past medical history is significant for COPD, hypertension, hyperlipidemia, PVD, history of multiple DVT, CAD s/p two stent in 2002. Patient was seen and examined. His shortness of breath has significantly improved. Continue antibiotic, steroid, bronchodilator for COPD exacerbation. continue fluid restriction to 1500ml per day (pt state he drinks a lot of water ) for hyponatremia. Patient has severe nonproductive cough, added robitussin AC qid, symptoms significantly improved. Repeat CAT scan shows hematoma is stable. Restart Plavix today. Patient is generally weak, PT OT evaluation and discharge plan. - Constitutional Vitals: Temp Pulse Resp BP Pulse Ox 97.7 F 82 16 116/60 97 07/24/16 10:56 07/24/16 11:17 07/24/16 12:02 07/24/16 10:56 07/24/16 12:02 General appearance: Present: A&O X 3, pleasant, no acute distress - Head Head exam: Present: atraumatic, normocephalic - Eye Eye exam: Present: PERRL, conjuntiva pink, sclera anicteric Pupils: Present: PERRL - Neck Neck exam general surgery: Present: supple, trachea midline. Absent: lymphadenopathy - Respiratory Respiratory exam: Present: CTAB. Absent: accessory muscle use, rales, rhonchi, wheezes - Cardiovascular Cardiovascular exam: Present: RRR, +S1, +S2. Absent: diastolic murmur, gallop, rubs, systolic murmur - GI/Abdominal GI/Abdominal exam: Present: normal bowel sounds, soft, tenderness (Mild tenderness on lower abdominal area), no peritoneal signs. Absent: distended - Extremities Exam Extremities exam: Present: warm, radial pulses palpable and symetrical. Absent : calf tenderness, cyanotic, pedal edema - Neurological Exam Neurological exam: Present: CN II-XII intact, oriented X3, no focal deficits. Absent: pronater drift, facial droop, speech deficit - Skin Skin exam: Present: dry, intact Internal Medicine: Result - Labs CBC & Chem 7: 07/24/16 04:34 07/24/16 04:34 Labs: Short CBC 07/24/16 Range/Units 04:34 WBC 13.0 H (4.3-11.1) K/mcL Hgb 10.8 L (12.9-16.9) g/dL Hct 32.5 L (37.5-50.1) % Plt Count 251 (140-400) K/mcL Neutrophils # 8.7 (1.6-8.9) K/mcL BMP 02/14/17 04:34 Sodium 132 L Potassium 4.0 Chloride 95 L Carbon Dioxide 30 H BUN 28 H Creatinine 0.84 Glucose 93 Calcium 8.8 - ABG Interpretation ABG results: ABG ABG pH 7.44 pH Units (7.32-7.45) 07/18/16 20:00 ABG pCO2 37 mmHg (35-45) 07/18/16 20:00 ABG pO2 73 mmHg (85-104) L 07/18/16 20:00 ABG O2 Saturation 95 % (95-98) 07/18/16 20:00 PT/INR, D-dimer PT 21.3 Seconds (9.4-12.1) H 07/17/16 13:05 - VTE Documentation of Mechanical Device: Graduated compression elastic hosiery Consult Discharge Plan - Plan Referrals: Dane Justin MD [Primary Care Provider] - 07/26/16 9:20 am (Please take your green discharge folder with you to your appointment with all paper work inside.)
[2016-07-25] MEDS: Ipratropium/Albuterol Neb 3 ML IH SCH ×6 (00:24→20:46)
[2016-07-25 04:46] LABS: Basophils % 0.2 %; Eosinophils # 0.1 K/mcL (0.0-0.6); Eosinophils % 0.4 %; Hematocrit 32.6 % (37.5-50.1); Hemoglobin 10.7 g/dL (12.9-16.9); Immature Granulocytes % 1.5 % (0-4); Lymphocytes # 2.8 K/mcL (0.6-4.6); Lymphocytes % 19.7 %; Mean Corpuscular HGB Conc 32.8 g/dL (31.6-35.5); Mean Corpuscular Hemoglobin 27.2 pg (28.0-33.3); Mean Platelet Volume 9.2 fL (9.4-12.4); Monocytes # 1.9 K/mcL (0.0-1.3); Monocytes % 13.2 %; Neutrophils # 9.4 K/mcL (1.6-8.9); Platelet Count 256 K/mcL (140-400); Red Blood Count 3.93 M/mcL (4.19-5.50); Red Cell Distribution Width 14.1 % (11.5-14.5)
[2016-07-25 05:29] LABS: BUN/Creatinine Ratio 29 (6-26); Blood Urea Nitrogen 22 mg/dL (8-26); Calcium 8.5 mg/dL (8.6-10.8); Carbon Dioxide 24 mEq/L (19-29); Chloride 98 mEq/L (98-109); Glucose 84 mg/dL (70-99); Osmolality,Calculated 275 (280-300); Sodium 131 mEq/L (136-145); eGFR For African Americans > 60 (> 60); eGFR For Non-African Americans > 60 (> 60)
[2016-07-25 05:44] LABS: Potassium 4.2 mEq/L (3.5-4.5)
[2016-07-25] MEDS: GuaiFENesin/Codeine Oral Soln 5 ML UDC PO SCH ×4 (05:45→23:46)
[2016-07-25] MEDS: Aspirin Enteric Coated 81 MG Tablet PO SCH (07:46)
[2016-07-25] MEDS: predniSONE 20 MG TABLET PO SCH (07:47)
[2016-07-25] MEDS: levoFLOXacin 750 MG TABLET PO SCH (07:47)
[2016-07-25] MEDS ORDERED: 0.9 % Sodium Chloride 1,000 ML ONE (09:24)
--- NOTE | 2016-07-25 15:19 | Internal Med Progress Note ---
Date of Encounter: 07/25/16 Time of Encounter: 10:00 - Assessment and plan (1) Acute exacerbation of chronic obstructive airways disease Current Visit: Yes Status: Acute Assessment and plan: Patient clinically has improved. CXR does not show any signs of pneumonia. Taper down methylprednisone to prednisone by mouth Duoneb treatments QIDR. Albuterol nebulizer Q2hr PRN titrate O2 to maintain O2 saturation > 92% continue Levaquin IVPB daily (2) Iliopsoas muscle hematoma Current Visit: Yes Status: Acute Assessment and plan: We will hold anticoagulation. Repeated abdominal CAT scan today shows hematoma is stable. Restart Plavix today. Follow-up CAT scan after 5 days. Qualifiers: Encounter type: initial encounter Laterality: right Qualified Code(s): S70.11XA - Contusion of right thigh, initial encounter (3) DVT prophylaxis Current Visit: Yes Status: Acute Assessment and plan: Encourage pt ambulation. No anticoagulation because of hematoma. EPCD. (4) Hypertension Current Visit: Yes Status: Acute Assessment and plan: Stable. Will continue home medications. Blood pressure at the lower side today , decrease home medication dose, follow-up BP Qualifiers: Hypertension type: essential hypertension Qualified Code(s): I10 - Essential (primary) hypertension (5) Hypercoagulable state Current Visit: No Status: Chronic Assessment and plan: We will hold xarelto because of hematoma. Hematology consult appreciated. Baby ASA and Plavix restarted. (6) Hyponatremia Current Visit: Yes Status: Acute Assessment and plan: Pt seems over hydrated. Keep fluid restriction at 1500. Slightly improved the hyponatremia (7) CHF (congestive heart failure) Current Visit: Yes Status: Chronic Assessment and plan: Echo shows combined systolic and diastolic CHF. Patient is on metoprolol, and JOSELITO inhibitor already. Cardiology consult appreciated. CHF is not new and no signs of exacerbation, continue current treatment. Qualifiers: Congestive heart failure type: combined Qualified Code(s): I50.42 - Chronic combined systolic (congestive) and diastolic (congestive) heart failure - Time Spent With Patient 25 - 35 minutes - Subjective Interval history: Patient is a 81-year-old male admitted for COPD exacerbation. Past medical history is significant for COPD, hypertension, hyperlipidemia, PVD, history of multiple DVT, CAD s/p two stent in 2002. Patient was seen and examined. His shortness of breath has significantly improved. Continue antibiotic, steroid, bronchodilator for COPD exacerbation. continue fluid restriction to 1500ml per day (pt state he drinks a lot of water ) for hyponatremia and his CHF. Patient's nonproductive cough has improved after giving him robitussin AC qid. Repeat CAT scan shows hematoma is stable. Restarted Plavix. Patient's blood pressure at lower site, with decreased metoprolol and lisinopril dose. PT OT recommended ECF discharge, SW is working on placement issue. - Constitutional Vitals: Temp Pulse Resp BP Pulse Ox 98.1 F 84 16 100/61 98 07/25/16 10:47 07/25/16 12:25 07/25/16 11:22 07/25/16 10:47 07/25/16 11:22 General appearance: Present: A&O X 3, pleasant, no acute distress - Head Head exam: Present: atraumatic, normocephalic - Eye Eye exam: Present: PERRL, conjuntiva pink, sclera anicteric Pupils: Present: PERRL - Neck Neck exam general surgery: Present: supple, trachea midline. Absent: lymphadenopathy - Respiratory Respiratory exam: Present: CTAB. Absent: accessory muscle use, rales, rhonchi, wheezes - Cardiovascular Cardiovascular exam: Present: RRR, +S1, +S2. Absent: diastolic murmur, gallop, rubs, systolic murmur - GI/Abdominal GI/Abdominal exam: Present: normal bowel sounds, soft, no peritoneal signs. Absent: distended, tenderness - Extremities Exam Extremities exam: Present: warm, radial pulses palpable and symetrical. Absent : calf tenderness, cyanotic, pedal edema - Neurological Exam Neurological exam: Present: CN II-XII intact, oriented X3, no focal deficits. Absent: pronater drift, facial droop, speech deficit - Skin Skin exam: Present: dry, intact Internal Medicine: Result - Labs CBC & Chem 7: 07/25/16 04:24 07/25/16 04:24 - ABG Interpretation ABG results: ABG ABG pH 7.44 pH Units (7.32-7.45) 07/18/16 20:00 ABG pCO2 37 mmHg (35-45) 07/18/16 20:00 ABG pO2 73 mmHg (85-104) L 07/18/16 20:00 ABG O2 Saturation 95 % (95-98) 07/18/16 20:00 PT/INR, D-dimer PT 21.3 Seconds (9.4-12.1) H 07/17/16 13:05 - VTE Documentation of Mechanical Device: Graduated compression elastic hosiery Consult Discharge Plan - Plan Referrals: Dane Justin MD [Primary Care Provider] - (PT IS GOING TO ECF NO FOLLOW UP PCP APPOINTMENT NEEDED)
[2016-07-26] MEDS: Ipratropium/Albuterol Neb 3 ML IH SCH ×7 (00:26→23:18)
[2016-07-26 05:39] LABS: VBG PH 7.41 pH Units (7.32-7.42)
[2016-07-26 05:40] LABS: Ionized Calcium 1.12 mmol/L (1.15-1.35)
[2016-07-26] MEDS: GuaiFENesin/Codeine Oral Soln 5 ML UDC PO SCH ×3 (05:50→18:19)
[2016-07-26 05:56] LABS: Albumin/Globulin Ratio 1.1 (1.1-2.2); Bilirubin,Direct 0.6 mg/dL (0.0-0.5); Bilirubin,Total 1.6 mg/dL (0.2-1.2); Globulin 2.8 g/dL (2.4-3.5); Phosphorous 3.4 mg/dL (2.3-4.7); Total Protein 5.8 g/dL (6.0-8.3)
[2016-07-26 06:13] LABS: Thyroid Stimulating Hormone 0.28 mcIU/mL (0.350-4.840)
[2016-07-26] MEDS: levoFLOXacin 750 MG TABLET PO SCH (07:53)
[2016-07-26] MEDS: predniSONE 20 MG TABLET PO SCH (07:53)
[2016-07-26] MEDS: Aspirin Enteric Coated 81 MG Tablet PO SCH (07:53)
[2016-07-26] MEDS ORDERED: Ondansetron 4 MG/2 ML VIAL IVP PRN (10:02)
[2016-07-26] MEDS ORDERED: 0.9 % Sodium Chloride 250 ML IVC ONE (11:53)
[2016-07-26] MEDS ORDERED: Ondansetron 4 MG/2 ML VIAL IVP SCH (12:00)
[2016-07-26] MEDS ORDERED: predniSONE 20 MG TABLET PO SCH (12:11)
--- NOTE | 2016-07-26 14:19 | Internal Med Progress Note ---
Date of Encounter: 07/26/16 Time of Encounter: 10:00 - Assessment and plan (1) Acute exacerbation of chronic obstructive airways disease Current Visit: Yes Status: Acute Assessment and plan: Patient clinically has improved. CXR does not show any signs of pneumonia. Taper down methylprednisone to prednisone by mouth, further taper down dose today Duoneb treatments QIDR. Albuterol nebulizer Q2hr PRN titrate O2 to maintain O2 saturation > 92% D/C levaquin as his symptoms improved. (2) Iliopsoas muscle hematoma Current Visit: Yes Status: Acute Assessment and plan: We will hold anticoagulation. Repeated abdominal CAT scan today shows hematoma is stable. On ASA 81mg and Plavix. Follow-up CAT scan after 5 days. Qualifiers: Encounter type: initial encounter Laterality: right Qualified Code(s): S70.11XA - Contusion of right thigh, initial encounter (3) DVT prophylaxis Current Visit: Yes Status: Acute Assessment and plan: Encourage pt ambulation. No anticoagulation because of hematoma. EPCD. (4) Hypertension Current Visit: Yes Status: Acute Assessment and plan: Stable. Will continue home medications. Blood pressure at the lower side today , D/C lisinopril, hydrate pt (fluid restriction change to 2000ml), F/U BP change. Qualifiers: Hypertension type: essential hypertension Qualified Code(s): I10 - Essential (primary) hypertension (5) Hypercoagulable state Current Visit: No Status: Chronic Assessment and plan: We will hold xarelto because of hematoma. Hematology consult appreciated. Baby ASA and Plavix restarted. (6) Hyponatremia Current Visit: Yes Status: Acute Assessment and plan: Pt seems over hydrated. Keep fluid restriction at 2000. Slightly improved the hyponatremia (7) CHF (congestive heart failure) Current Visit: Yes Status: Chronic Assessment and plan: Echo shows combined systolic and diastolic CHF. Patient is on metoprolol, hold JOSELITO inhibitor now b/o low BP, consider resume if BP allows. Cardiology consult appreciated. CHF is not new and no signs of exacerbation, continue current treatment. Qualifiers: Congestive heart failure type: combined Qualified Code(s): I50.42 - Chronic combined systolic (congestive) and diastolic (congestive) heart failure - Time Spent With Patient 25 - 35 minutes - Subjective Interval history: Patient is a 81-year-old male admitted for COPD exacerbation. Past medical history is significant for COPD, hypertension, hyperlipidemia, PVD, history of multiple DVT, CAD s/p two stent in 2002. Patient was seen and examined. His shortness of breath has significantly improved. D/C antibiotic, taper down steroid, cont bronchodilator for COPD exacerbation. Patient has a low blood pressure yesterday and today, needed IV fluid, BP low when patient tried to get up from bed. Consider low volume. Which change fluid restriction to 2000ml per day for hyponatremia and his CHF. D /C am lisinopril. Patient's nonproductive cough has improved after giving him robitussin AC qid. Hold discharge b/o low BP. - Constitutional Vitals: Temp Pulse Resp BP Pulse Ox 97.7 F 86 16 83/56 92 L 07/26/16 11:33 07/26/16 11:37 07/26/16 11:33 07/26/16 11:33 07/26/16 11:33 General appearance: Present: A&O X 3, pleasant, no acute distress - Head Head exam: Present: atraumatic, normocephalic - Eye Eye exam: Present: PERRL, conjuntiva pink, sclera anicteric Pupils: Present: PERRL - Neck Neck exam general surgery: Present: supple, trachea midline. Absent: lymphadenopathy - Respiratory Respiratory exam: Present: CTAB. Absent: accessory muscle use, rales, rhonchi, wheezes - Cardiovascular Cardiovascular exam: Present: RRR, +S1, +S2. Absent: diastolic murmur, gallop, rubs, systolic murmur - GI/Abdominal GI/Abdominal exam: Present: normal bowel sounds, soft, no peritoneal signs. Absent: distended, tenderness - Extremities Exam Extremities exam: Present: warm, radial pulses palpable and symetrical. Absent : calf tenderness, cyanotic, pedal edema - Neurological Exam Neurological exam: Present: CN II-XII intact, oriented X3, no focal deficits. Absent: pronater drift, facial droop, speech deficit - Skin Skin exam: Present: dry, intact Internal Medicine: Result - Labs CBC & Chem 7: 07/25/16 04:24 07/25/16 04:24 Labs: Cardiac Enzymes 07/26/16 Range/Units 05:00 Troponin I 0.02 (0-0.03) ng/mL Liver Function 07/26/16 Range/Units 05:00 Total Bilirubin 1.6 H (0.2-1.2) mg/dL Direct Bilirubin 0.6 H (0.0-0.5) mg/dL AST 24 (5-34) Units/L ALT 17 (0-55) Units/L Alkaline Phosphatase 60 (38-126) Units/L Albumin 3.0 L (3.5-5.0) g/dL - ABG Interpretation ABG results: ABG ABG pH 7.44 pH Units (7.32-7.45) 07/18/16 20:00 ABG pCO2 37 mmHg (35-45) 07/18/16 20:00 ABG pO2 73 mmHg (85-104) L 07/18/16 20:00 ABG O2 Saturation 95 % (95-98) 07/18/16 20:00 PT/INR, D-dimer PT 21.3 Seconds (9.4-12.1) H 07/17/16 13:05 - VTE Documentation of Mechanical Device: Graduated compression elastic hosiery Consult Discharge Plan - Plan Referrals: Dane Justin MD [Primary Care Provider] - (PT IS GOING TO ECF NO FOLLOW UP PCP APPOINTMENT NEEDED)
[2016-07-27] MEDS: Ipratropium/Albuterol Neb 3 ML IH SCH ×3 (03:44→11:24)
[2016-07-27] MEDS: Aspirin Enteric Coated 81 MG Tablet PO SCH (08:47)
[2016-07-27 11:39] VITALS: BP 104/76
--- NOTE | 2016-07-27 13:02 | Discharge Summary ---
Date of Encounter: 07/27/16 Time of Encounter: 12:00 - Discharge Diagnosis (1) Acute exacerbation of chronic obstructive airways disease Priority: Primary Status: Acute (2) Iliopsoas muscle hematoma Priority: Primary Status: Acute Qualifiers: Encounter type: initial encounter Laterality: right Qualified Code(s): S70.11XA - Contusion of right thigh, initial encounter (3) DVT prophylaxis Priority: Secondary Status: Acute (4) Hypertension Priority: Secondary Status: Acute Qualifiers: Hypertension type: essential hypertension Qualified Code(s): I10 - Essential (primary) hypertension (5) Hypercoagulable state Priority: Secondary Status: Chronic (6) Hyponatremia Priority: Secondary Status: Acute (7) CHF (congestive heart failure) Priority: Secondary Status: Chronic Qualifiers: Congestive heart failure type: combined Qualified Code(s): I50.42 - Chronic combined systolic (congestive) and diastolic (congestive) heart failure - Discharge Medications Prescriptions: Ipratropium/Albuterol Neb [Duoneb] 3 ml IH [id number] #20 inhsol GuaiFENesin/Dextromethorphan [Robitussin/Dm] 10 ml PO Q6HR 7 Days Aspirin Enteric Coated [Aspirin EC] 81 mg PO DAILY #30 tablet. Docusate [Colace] 100 mg PO BID #60 capsule Metoprolol [Lopressor] 25 mg PO DAILY #30 tablet PredniSONE 20 mg PO DAILY #7 tablet Home Medications: Clopidogrel [Plavix] 75 mg PO DAILY 01/25/16 [History] Fluticasone/Salmeterol [Advair 250-50 Diskus] 1 each IH BID 01/25/16 [History] Omeprazole [PriLOSEC] 20 mg PO DAILY 01/25/16 [History] Tamsulosin HCl [Flomax] 0.4 mcg PO BID 01/25/16 [History] Atorvastatin [Lipitor] 40 mg PO HS 07/17/16 [History] Aspirin Enteric Coated [Aspirin EC] 81 mg PO DAILY #30 tablet. 07/27/16 [Rx] Docusate [Colace] 100 mg PO BID #60 capsule 07/27/16 [Rx] GuaiFENesin/Dextromethorphan [Robitussin/Dm] 10 ml PO Q6HR 7 Days 07/27/16 [Rx] Ipratropium/Albuterol Neb [Duoneb] 3 ml IH [id number] #20 inhsol 07/27/16 [Rx] Metoprolol [Lopressor] 25 mg PO DAILY #30 tablet 07/27/16 [Rx] PredniSONE 20 mg PO DAILY #7 tablet 07/27/16 [Rx] Allergies/Adverse Reactions: Allergies No Known Allergies Allergy (Verified 07/17/16 12:42) - Notes to Outpatient Provider 1. Patient has systolic and diastolic CHF, EF 40-45%, he was on beta risa and JOSELITO inhibitor. However, JOSELITO inhibitor is on hold now because of low blood pressure. May resume JOSELITO inhibitor if BP allows. 2. Patient has hyponatremia, he was placed on fluid restriction 2000 mL per day for hyponatremia and CHF. 3. Please repeat a CT of pelvis on Saturday to recheck the size of hematoma. Date of admission: 07/25/16 13:33 Primary care physician: Dane Justin MD Discharging clinician: Maribel Kim Anticipated date of discharge: 07/27/16 - Patient Status Disposition: Transfer SNF Condition: Good Functional capacity at discharge: uses cane/walker Overall status at discharge: patient is progressing back to baseline - Discharge Instructions Follow Up With: Dane Justin MD [Primary Care Provider] - (PT IS GOING TO F NO FOLLOW UP PCP APPOINTMENT NEEDED) - Diet and Activity Activity: as per physical therapy Diet: low fat, low cholesterol (Fluid restriction 2000ml per day, on Ensure supplement) Interval History: Mr. Yeung is a 81 year old male with COPD, HTN, hyperlipidemia, PVD, history of multiple DVTs, CAD, who presented to the ED with complaints of worsening cough and shortness of breath since Saturday. Patient reports he started coughing on Saturday and has had associated shortness of breath since then, getting worse. He feels like he should be able to cough something up, but has been unable to. He has had trouble sleeping because he has been coughing so much. He reports he tried his home inhalers and nebulizers without relief. He denies any fever, chills, sweats, nausea, vomiting or abdominal pain. He denies any chest pain, pain with cough or breathing, palpitations, lightheadedness or dizziness. On presentation to the ED, he was dyspnic with RR of 24 and satting 91% on room air. He was given nebulizer, oxygen and steroid and symptoms have improved. On exam, patient is alert and oriented x 3 in no distress. He is satting 94% on 2L NC. His lungs have inspiratory and expiratory wheezes. Heart has regular rate and rhythm. Hospital course: Mr. Yeung is a 81 year old male admitted for COPD exacerbation. He was treated with antibiotics, steroids, bronchodilator. Patient has hypercoagulation status and was placed on xarelto, aspirin 324 mg once a day, and Plavix. His hospitalization is complicated by illiopsoas muscle hematoma. Hematology consult was called and recommended patient aspirin 81 mg by mouth daily. Repeated CT shows hematoma is stable, Plavix then also added per hematology recommendation. After treatment the patient is stable, we will discharge him to ECF per PT and OT recommendation. Patient was seen and examined. He is awake alert, oriented 3. In no acute distress. Denies chest pain, or shortness of breath. No nausea no vomiting. Vitals are stable. Oxygen saturation 97% on 2 L nasal cannula oxygen. Lungs are clear on exam. We will discharge to ECF and a follow-up with PCP and hematology as outpatient. - Time Spent with Patient Total time spent providing and/or coordinating discharge services: 40 minutes Greater than 30 minutes - Constitutional Vitals: Temp Pulse Resp BP Pulse Ox 98.2 F 80 16 104/76 97 07/27/16 11:34 07/27/16 11:34 07/27/16 11:34 07/27/16 11:34 07/27/16 11:34 General appearance: Present: A&O X 3, pleasant, no acute distress - Head Head exam: Present: atraumatic, normocephalic - Eye Eye exam: Present: PERRL, conjuntiva pink, sclera anicteric Pupils: Present: PERRL - Neck Neck exam general surgery: Present: supple, trachea midline. Absent: lymphadenopathy - Respiratory Respiratory exam: Present: CTAB. Absent: accessory muscle use, rales, rhonchi, wheezes - Cardiovascular Cardiovascular exam: Present: RRR, +S1, +S2. Absent: diastolic murmur, gallop, rubs, systolic murmur - GI/Abdominal GI/Abdominal exam: Present: normal bowel sounds, soft, no peritoneal signs. Absent: distended, tenderness - Extremities Exam Extremities exam: Present: warm, radial pulses palpable and symetrical. Absent : calf tenderness, cyanotic, pedal edema - Neurological Exam Neurological exam: Present: CN II-XII intact, oriented X3, no focal deficits. Absent: pronater drift, facial droop, speech deficit - Skin Skin exam: Present: dry, intact - VTE Documentation of Mechanical Device: Graduated compression elastic hosiery
--- NOTE | 2016-07-27 13:19 | Physician Discharge Referral ---
ExtendedCare Referral Info Transfer To: [facility] Provider in Charge after Transfer: Other - Diagnosis (1) Acute exacerbation of chronic obstructive airways disease Status: Acute (2) Iliopsoas muscle hematoma Status: Acute (3) DVT prophylaxis Status: Acute (4) Hypertension Status: Acute (5) Hypercoagulable state Status: Chronic (6) Hyponatremia Status: Acute (7) CHF (congestive heart failure) Status: Chronic - Transfer Medications Prescriptions: Ipratropium/Albuterol Neb [Duoneb] 3 ml IH [id number] #20 inhsol GuaiFENesin/Dextromethorphan [Robitussin/Dm] 10 ml PO Q6HR 7 Days Aspirin Enteric Coated [Aspirin EC] 81 mg PO DAILY #30 tablet. Docusate [Colace] 100 mg PO BID #60 capsule Metoprolol [Lopressor] 25 mg PO DAILY #30 tablet PredniSONE 20 mg PO DAILY #7 tablet Home Medications: Clopidogrel [Plavix] 75 mg PO DAILY 01/25/16 [History] Fluticasone/Salmeterol [Advair 250-50 Diskus] 1 each IH BID 01/25/16 [History] Omeprazole [PriLOSEC] 20 mg PO DAILY 01/25/16 [History] Tamsulosin HCl [Flomax] 0.4 mcg PO BID 01/25/16 [History] Atorvastatin [Lipitor] 40 mg PO HS 07/17/16 [History] Aspirin Enteric Coated [Aspirin EC] 81 mg PO DAILY #30 tablet. 07/27/16 [Rx] Docusate [Colace] 100 mg PO BID #60 capsule 07/27/16 [Rx] GuaiFENesin/Dextromethorphan [Robitussin/Dm] 10 ml PO Q6HR 7 Days 07/27/16 [Rx] Ipratropium/Albuterol Neb [Duoneb] 3 ml IH [id number] #20 inhsol 07/27/16 [Rx] Metoprolol [Lopressor] 25 mg PO DAILY #30 tablet 07/27/16 [Rx] PredniSONE 20 mg PO DAILY #7 tablet 07/27/16 [Rx] Allergies/Adverse Reactions: Allergies No Known Allergies Allergy (Verified 07/17/16 12:42) - Respiratory Orders Oxygen / L per min (2) Smoking Cessation: Smoking cessation has been advised. For more information, call the [place] [employer] Quit Line at 3-842-GDLV-NOW. - Lab Orders Lab Orders: Other (include drug levels w/frequency) (CT of Abd pelvis w/o contrast on 07/30/16 to f/u hematoma size.) - Advance Directives Living Will: Yes Code Status: Full Code - Mobility Orders Ambulate - Rehabiliation Orders Rehab Potential: Good Rehab Orders: Evaluation for Physical Therapy, Evaluation for Occupational Therapy - Diet Orders Regular (With ensure supplement. Fluid restriction 2000 mL per day.) CERTIFICATION: I certify that the transfer of the above named patient to an Extended Care Facility is necessary for the continuing treatment of the diagnosis listed. The above information is true and accurate reflection of patient's current condition. Confidential - Redisclosure prohibited without a patient's written consent.
[2016-07-27] MEDS ORDERED: GuaiFENesin Liq 200 MG/10 ML UDC PO ONE (18:34)
== END 2016-07-27 14:40 | disposition other institution (70) | DRG 190 ==
LOC: 2ANU 12:36 → EMEROO 12:36 → SUATTDRO 14:21 → 2ANU 15:14 → 2NNU 07-18 21:45
PROVIDERS: ADMIT Family Medicine; ATTEND Internal Medicine

== ENCOUNTER 2017-06-14 19:19 | Inpatient (IN) ==
[~2017-06-14 19:19] MED LIST: Adenosine 90 MG/30 ML MLS IV ONE
[2017-06-14] MEDS ORDERED: Ipratropium/Albuterol Neb 3 ML IH ONE (19:22)
--- NOTE | 2017-06-14 19:27 | Emergency Department Note ---
Disposition Clinical Impression: Atrial fibrillation with rapid ventricular response Community acquired pneumonia Qualifiers: Laterality: unspecified laterality Qualified Code(s): J18.9 - Pneumonia, unspecified organism CHF (congestive heart failure) Qualifiers: Congestive heart failure type: unspecified congestive heart failure type Congestive heart failure chronicity: unspecified congestive heart failure chronicity Qualified Code(s): I50.9 - Heart failure, unspecified Sepsis Qualifiers: Sepsis type: sepsis due to unspecified organism Qualified Code(s): A41.9 - Sepsis, unspecified organism Disposition: Admitted As Inpatient Condition: Good Time of Disposition: 23:39 SOB HPI - General Chief Complaint: ED Shortness of Breath/Dyspnea Stated Complaint: MANAV Time Seen by Provider: 06/14/17 19:21 Source: patient, EMS Mode of arrival: EMS Limitations: no limitations Nursing Notes Reviewed: Yes Vital Signs Reviewed: Yes - History of Present Illness 82-year-old male history of COPD on 2 L home oxygen supplementation, CHF presents to the ED via EMS for difficulty breathing and respiratory distress. EMS administered DuoNeb treatment which improved his oxygen saturation from 90% to 99% as well as reported symptom improvement. Patient states symptoms have worsened over the past week. Recently evaluated at urgent care placed on antibiotic in steroids. He reports worsening dyspnea. Worse with laying down prefers sitting up. Denies any chest pain. Was found to be of atrial fibrillation by EMS squad as well as EKG provided here. Denies history of atrial fibrillation. He does take aspirin, Plavix and Xarelto for stents in his legs. He reports a cough that is nonproductive. No fevers or chills. No other complaints. At this time will evaluate with a chest x-ray basic labs troponin EKG as well as place are in a Cardizem drip with bolus 20 mg. His heart rate is 160 irregular. Blood pressure systolic 150. Suspect atrial fibrillation likely contributory but will rule out pneumonia, COPD exacerbation versus CHF exacerbation. Pt Subjective Complaint: shortness of breath, cough - Related Data Home Medications Medication Instructions Recorded Confirmed Clopidogrel [Plavix] 75 mg PO DAILY 01/25/16 06/14/17 Omeprazole [PriLOSEC] 20 mg PO DAILY 01/25/16 06/14/17 Atorvastatin [Lipitor] 40 mg PO HS 07/17/16 06/14/17 Fluticasone/Salmeterol [Advair 1 each IH BID 04/08/17 06/14/17 500-50 Diskus] Rivaroxaban [Xarelto] 10 mg PO 1700 04/08/17 06/14/17 Furosemide [Lasix] 20 mg PO BID 06/14/17 06/14/17 Ipratropium/Albuterol Neb [Duoneb] 3 ml IH Q4-6H PRN 06/14/17 06/14/17 Nitroglycerin [Nitrostat] 0.4 mg PO Q5M PRN 06/14/17 06/14/17 Tamsulosin [Flomax] 0.4 mg PO BID 06/14/17 06/14/17 Previous Rx's Medication Instructions Recorded Aspirin Enteric Coated [Aspirin EC] 81 mg PO DAILY #30 tablet. 07/27/16 Metoprolol [Lopressor] 25 mg PO DAILY #30 tablet 07/27/16 Allergies Allergy/AdvReac Type Severity Reaction Status Date / Time No Known Allergies Allergy Verified 04/08/17 10:06 All systems ED: reviewed and negative except as stated. Review of Systems: As Per HPI Constitutional: Denies: fever, chills ENT ED: Reports: congestion Cardiovascular: Reports: dyspnea on exertion. Denies: chest pain Respiratory: Reports: cough, dyspnea Gastrointestinal: Denies: abdominal pain, nausea, vomiting Genitourinary: Denies: urgency, dysuria Musculoskeletal: Denies: back pain Integumentary: Denies: rash, abrasion Neurological: Denies: headache Past Medical History - Past Medical History Attestation: Yes The following information was validated with the patient. Source: patient Medical history: Reports: asthma, COPD (Emphysema), coronary artery disease, DVT (reports multiple), hyperlipidemia, hypertension, myocardial infarction ( 2002), RA, other (PVD) Surgical history: Reports: angioplasty/stent (x2 in 2002), herniorrhaphy (right inguinal 09/2011; ventral hernia repair 09/2007), LE Bypass, LE vascular intervention, vascular surgery (Right thrombectomy fem/fem bypass graft 2013; Fem/Fem bypass 2006; left fem/pop bypass 1994) Psychiatric history: Reports: no psych history - Social History Smoking Status: Never smoker Smokeless Tobacco Status: No Alcohol use: Reports: none Drug use: Reports: none Physical Exam - General Limitations: no limitations General appearance: alert, in distress (Respiratory, mild), other (He prefers sitting up) - Head Head exam: atraumatic, normocephalic, normal inspection - Eye Eye exam: Present: normal appearance, PERRL, EOMI - ENT ENT exam: normal exam, normal oropharynx, mucous membranes moist - Neck Neck exam: Present: normal inspection, full ROM, trachea midline - Chest Chest inspection: Present: normal inspection, symmetric chest wall rise. Absent : tenderness - Respiratory Respiratory exam: Present: normal lung sounds bilaterally, respiratory distress (mild), wheezes, other (rales in bases) - Expanded Respiratory Exam Location: rales: Left, Right - Cardiovascular Cardiovascular exam: Present: tachycardia, irregular rhythm, normal heart sounds - Abdominal Exam Abdominal exam: Present: soft, Non-Tender, normal bowel sounds. Absent: tenderness, distention, guarding, rebound, rigidity - Extremities Exam Extremities exam: Present: normal inspection, full ROM, normal capillary refill , pedal edema (+1 bilateral). Absent: tenderness, calf tenderness - Back Exam Back exam: Present: normal inspection, full ROM. Absent: tenderness, CVA tenderness (R), CVA tenderness (L) - Neurological Exam Neurological exam: Present: alert, oriented X3 - Psychiatric Psychiatric exam: Present: normal affect, normal mood - Skin Skin exam: Present: warm, dry, intact, normal color. Absent: rash, cyanosis, diaphoresis Course - Reevaluation(s) Reevaluation #1: Continues to remain hemodynamically stable. Patient is currently on Cardizem in his heart rate has come down to 100-110 range. Suspect is atrial fibrillation is contributing to his symptoms of dyspnea and respiratory distress. Chest x-ray shows signs concerning for pneumonia as well. No prior hospitalization the last 3 months. Will treat for community acquired pneumonia. His BNP is also elevated greater than 500. His lactate is also elevated 2.9. He has some mild edema in his lower extremities will cautiously fluid hydrated given his history of congestive heart failure and elevated lactate. 500 mL bolus given. No not aggressively fluid resuscitate him with 30 mL per kilogram normal saline given his difficult fluid balance. His blood pressure remains systolic 100 and initially was systolic 140 is was likely due to the cardizem medication. Will continue to monitor. This troponin is also elevated 0.05, likely demand from his atrial fibrillation. Will continue to monitor. Review of his labs he has a leukocytosis 14. Patient will need admission for his atrial fibrillation as well as his pneumonia and component of CHF exacerbation. Impression is sepsis, community acquired pneumonia, atrial fibrillation with rapid ventricular response. Patients in agreement with this plan. Time: 22:03 - Consultations Consultation #1: Spoke with on-call hospitalist jeimy Pitt to admit for afib, CAP, sepsis, CHF exacerbation. No further orders at this time Vital Signs Temperature 98.8 F 06/14/17 19:21 Pulse Rate 155 06/14/17 19:21 Respiratory Rate 29 06/14/17 19:21 Blood Pressure 143/95 06/14/17 19:21 O2 Sat by Pulse Oximetry 98 06/14/17 19:21 Temperature 98.8 F 06/14/17 19:21 Pulse Rate 109 06/14/17 21:56 Respiratory Rate 22 06/14/17 23:39 Blood Pressure 101/90 06/14/17 22:47 O2 Sat by Pulse Oximetry 94 06/14/17 23:39 Oxygen Delivery Oxygen Delivery Nasal Cannula Shortness of Breath/Dyspnea - MDM Narrative Medical decision making narrative: Patient was discussed with my attending physician who agrees with ED management and final disposition. They independently evaluated the patient. Please refer to their attestation to this encounter for additional information. This note was generated by [employer] voice recognition software and as a result grammatical or spelling errors may occur using this program. - Medical Records Medical records reviewed: Yes I reviewed the patient's medical records. - Lab Data Lab results reviewed: Yes I reviewed the patient's lab results. Result diagrams: 06/14/17 19:30 06/14/17 19:30 Lab Results 06/14/17 06/14/17 06/14/17 Range/Units 19:30 19:30 19:30 WBC 14.6 H (4.3-11.1) K/mcL RBC 4.69 (4.19-5.50) M/mcL Hgb 10.0 L (12.9-16.9) g/dL Hct 33.8 L (37.5-50.1) % MCV 72.1 L (83.0-100.0) fL MCH 21.3 L (28.0-33.3) pg MCHC 29.6 L (31.6-35.5) g/dL RDW 18.6 H (11.5-14.5) % Plt Count 465 H (140-400) K/mcL MPV 10.1 (9.4-12.4) fL Immature Gran % 0.9 (0-4) % Seg Neutrophils % 75.2 % Lymphocytes % 11.8 % Monocytes % 11.0 % Eosinophils % 1.0 % Basophils % 0.1 % Neutrophils # 11.0 H (1.6-8.9) K/mcL Lymphocytes # 1.7 (0.6-4.6) K/mcL Monocytes # 1.6 H (0.0-1.3) K/mcL Eosinophils # 0.2 (0.0-0.6) K/mcL Basophils # 0.0 (0.0-0.2) K/mcL Nucleated RBCs/100 WBC 0.1 H (0) /100 WBC Hypochromasia Present A (Not Present) Sodium 135 L (136-145) mEq/L Potassium 4.0 (3.5-5.1) mEq/L Chloride 101 (98-107) mEq/L Carbon Dioxide 25 (23-29) mEq/L BUN 21 (8-23) mg/dL Creatinine 0.92 (0.70-1.30) mg/dL Est GFR ( Amer) > 60 (> 60) Est GFR (Non-Af Amer) > 60 (> 60) BUN/Creatinine Ratio 23 (6-26) Glucose 159 H (70-105) mg/dL Calculated Osmolality 286 (280-300) Lactic Acid 2.9 H (0.5-2.2) mmol/L Calcium 8.4 L (8.6-10.3) mg/dL Troponin I (< 0.04) ng/mL B-Natriuretic Peptide (Less than 100) pg/mL 06/14/17 06/14/17 06/14/17 Range/Units 19:30 19:30 21:28 WBC (4.3-11.1) K/mcL RBC (4.19-5.50) M/mcL Hgb (12.9-16.9) g/dL Hct (37.5-50.1) % MCV (83.0-100.0) fL MCH (28.0-33.3) pg MCHC (31.6-35.5) g/dL RDW (11.5-14.5) % Plt Count (140-400) K/mcL MPV (9.4-12.4) fL Immature Gran % (0-4) % Seg Neutrophils % % Lymphocytes % % Monocytes % % Eosinophils % % Basophils % % Neutrophils # (1.6-8.9) K/mcL Lymphocytes # (0.6-4.6) K/mcL Monocytes # (0.0-1.3) K/mcL Eosinophils # (0.0-0.6) K/mcL Basophils # (0.0-0.2) K/mcL Nucleated RBCs/100 WBC (0) /100 WBC Hypochromasia (Not Present) Sodium (136-145) mEq/L Potassium (3.5-5.1) mEq/L Chloride (98-107) mEq/L Carbon Dioxide (23-29) mEq/L BUN (8-23) mg/dL Creatinine (0.70-1.30) mg/dL Est GFR ( Amer) (> 60) Est GFR (Non-Af Amer) (> 60) BUN/Creatinine Ratio (6-26) Glucose (70-105) mg/dL Calculated Osmolality (280-300) Lactic Acid 1.9 (0.5-2.2) mmol/L Calcium (8.6-10.3) mg/dL Troponin I 0.05 H* (< 0.04) ng/mL B-Natriuretic Peptide 504 H (Less than 100) pg/mL - Radiology Data Radiology results reviewed: Yes I reviewed the patient's radiology results. Chest X-Ray 06/14/17 19:22 IMPRESSION: Stable mild cardiomegaly. Airspace opacities at the bilateral lung bases, left more than right, may be related to pneumonia versus atelectasis. D/ / 06/14/2017 20:02:20 Pradip Navarro MD / [facility] Interpreting Provider: Pradip Navarro MD - EKG Data EKG attestation: Yes I reviewed and interpreted this EKG. EKG results narrative: EKG performed 1924 atrial fibrillation with rapid ventricular response 1 65 bpm , QRS 101, no ST elevations or depression. Patient denies history of known atrial fibrillation. Compared to prior EKG performed 07/17/2016 shows normal sinus rhythm. Critical Care Time Critical Care Time: Yes Total Critical Care Time: 40 Attestation: Critical care performed: Time is exclusive of separately billable procedures. Time includes: direct patient care, patient reassessment, coordination of patient care, interpretation of data (laboratory data, radiology data, and respiratory data), review of patient's medical records, medical consultation and documentation of patient care. Procedures included in critical care time: Procedures excluded from critical care time: Attestation Statement - Attestation Attestation: I, Vincent Michel MD, personally evaluated this patient and discussed their management with the resident physician. I reviewed the resident's note and agree with the documented findings, medical decision making, and plan of care. 82-year-old male with history of COPD and CHF presents to the emergency department with a complaint of increasing shortness of breath and increased cough which started 2 weeks prior to arrival. Gradual worsening over the past 2 weeks but acutely worse today. Patient does use home oxygen and has had to increase his use of the oxygen. Dry hacking cough with occasional clear sputum production. No fever. Some intermittent chest pain with coughing. On arrival patient was found to be in atrial fibrillation with RVR. No known prior history of atrial fibrillation. Patient is on Xarelto for peripheral vascular disease. On examination patient is a well-developed well-nourished elderly male in mild respiratory distress. He is alert and oriented 3. There is no cyanosis or diaphoresis. Frequent cough noted. Chest is nontender to palpation. Breath sounds are markedly decreased bilaterally with a few scattered wheezes. Heart tachycardic and irregularly irregular. Abdomen soft and nontender with normal bowel sounds. Trace pedal edema. EKG shows atrial fibrillation with RVR with a rate of 165. Chest x-ray shows stable mild cardiomegaly. Airspace opacities at the bilateral lung bases, left more than right, may be related to pneumonia versus atelectasis. Labs reviewed. Troponin 0.05. Patient received DuoNeb treatment. He was given a Cardizem bolus and placed on a Cardizem infusion. The hospitalist, Dr. Duvall, was consulted and accepted admission of the patient.
[2017-06-14 19:47] LABS: Lymphocytes % 11.8 %; Mean Platelet Volume 10.1 fL (9.4-12.4); Nucleated Red Blood Cells 0.1 /100 WBC (0)
[2017-06-14 19:48] LABS: Basophils % 0.1 %; Eosinophils # 0.2 K/mcL (0.0-0.6); Hematocrit 33.8 % (37.5-50.1); Immature Granulocytes % 0.9 % (0-4); Lymphocytes # 1.7 K/mcL (0.6-4.6); Mean Corpuscular HGB Conc 29.6 g/dL (31.6-35.5); Mean Corpuscular Hemoglobin 21.3 pg (28.0-33.3); Mean Corpuscular Volume 72.1 fL (83.0-100.0); Monocytes # 1.6 K/mcL (0.0-1.3); Platelet Count 465 K/mcL (140-400); Red Blood Count 4.69 M/mcL (4.19-5.50); Red Cell Distribution Width 18.6 % (11.5-14.5); Segmented Neutrophils % 75.2 %
[2017-06-14 19:51] LABS: Hypochromasia Present (Not Present)
[2017-06-14 20:00] LABS: BUN/Creatinine Ratio 23 (6-26); Blood Urea Nitrogen 21 mg/dL (8-23); Calcium 8.4 mg/dL (8.6-10.3); Carbon Dioxide 25 mEq/L (23-29); Chloride 101 mEq/L (98-107); Glucose 159 mg/dL (70-105); Osmolality,Calculated 286 (280-300); Sodium 135 mEq/L (136-145); eGFR For African Americans > 60 (> 60); eGFR For Non-African Americans > 60 (> 60)
[2017-06-14] MEDS: dilTIAZem HCl 100 MG in D5% in Water 50 ML IVC SCH (20:02)
[2017-06-14] MEDS ORDERED: Azithromycin 500 MG in D5% in Water 250 ML IVPB ONE (21:10)
[2017-06-14] MEDS ORDERED: cefTRIAXone 2,000 MG in Water for inj. (sterile) 20 ML 20 ML IVP ONE (21:10)
[2017-06-14] MEDS ORDERED: 0.9 % Sodium Chloride 500 ML IVC ONE (21:11)
[2017-06-14] MEDS ORDERED: Acetaminophen 325 MG TABLET PO PRN (22:52)
[2017-06-14] MEDS ORDERED: Ondansetron 4 MG/2 ML VIAL IVP PRN (22:52)
[2017-06-14] MEDS ORDERED: Naloxone 0.4 MG/ML INJ IVP PRN (22:52)
[2017-06-14] MEDS ORDERED: Albuterol 2.5 MG/3 ML NEBULIZER IH PRN (22:59)
[2017-06-14] MEDS ORDERED: Nitroglycerin 0.4 MG TAB.SUBL SL PRN (23:01)
--- NOTE | 2017-06-14 23:28 | Internal Med History&Physical ---
<Marilyn Romano - Last Filed: 06/15/17 00:12> Date of Encounter: 06/15/17 Time of Encounter: 23:28 Assessment and Plan (1) Atrial fibrillation with rapid ventricular response Current visit: Yes Status: Acute Patient presented and A. fib RVR with heart rate of 130s, no past history of atrial fibrillation he was already anticoagulated on several toe which we will continue. Continue with Cardizem drip Consult cardiology Obtain cardiac echo Trend troponins Continuous cardiac monitoring (2) Community acquired pneumonia Current visit: Yes Status: Acute 1 patient has been experiencing increasing shortness of breath cough and congestion. Denies any fevers or chills at this time has been exposed to upper respiratory infections. Blood cultures were obtained initiated Zithromax and Rocephin for community acquired pneumonia which we will continue Oxygen as needed titrated maintain SPO2 greater than 92% Bronchial dilators Anthony Zamarripa Qualifiers: Laterality: unspecified laterality Qualified Code(s): J18.9 - Pneumonia, unspecified organism (3) Acute respiratory failure Current visit: No Status: Acute This is multifactorial including COPD exacerbation pneumonia exacerbation of CHF and new onset of atrial fibrillation. Continue with oxygen titrated to maintain SPO2 greater than 90% Obtain flu swab Qualifiers: Respiratory failure complication: hypoxia Qualified Code(s): J96.01 - Acute respiratory failure with hypoxia (4) CAD (coronary artery disease) Current visit: No Status: Acute Qualifiers: Coronary Disease-Associated Artery/Lesion type: [place] artery [place] vs. transplanted heart: [place] heart Associated angina: without angina Qualified Code(s): I25.10 - Atherosclerotic heart disease of [place] coronary artery without angina pectoris (5) CHF exacerbation Current visit: Yes Status: Acute Patient does have a history of systolic CHF EF is 45-50% with moderate diastolic dysfunction. He has been increasing increasing shortness of breath orthopnea as well as lower extremity edema. BNP was elevated 5O4. We will give Lasix IV 40 mg twice a day Monitor intake and output daily weighing Low-sodium diet Qualifiers: Congestive heart failure type: systolic Qualified Code(s): I50.23 - Acute on chronic systolic (congestive) heart failure (6) COPD exacerbation Current visit: Yes Status: Acute Patient has been experiencing increasing shortness of breath he does have a history of COPD and is oxygen at night however for the past week he is utilizing oxygen 24 hours a day without any relief. He does have some faint expiratory wheezes. Initiated on azithromycin and Rocephin we will add prednisone. Continue bronchodilators Oxygen as needed (7) Hx of deep venous thrombosis Current visit: Yes Status: Acute Patient has a history of developing clots especially lower extremities he has been seen by oncology/hematology and is presently taking aspirin and Plavix and Xarelto which we will continue Consults oncology/E metallic as needed (8) DVT prophylaxis Current visit: No Status: Acute Patient is on Xarelto Internal Medicine - H&P: HPI Chief complaint: SOB Admitted From: Emergency Dept Plans for Post Hospital Care: Home History of present illness: Mr. Yeung is a 82 year old male past medical history of COPD on oxygen congestive heart failure hypertension hyperlipidemia PVD CAD multiple DVTs according to the patient for the past 2 weeks he has been experiencing increased fatigue moist nonproductive cough and shortness of breath. He states that over the past week his symptoms have worsened he is unable to lie down in bed and sleeps sitting up in a chair he normally only uses oxygen at night however he has used it continuously this past week without any improvement. He denies any fevers chills palpitations chest pain with a loss of weight gain . He has some pedal edema bilaterally. His has been ill with upper respiratory infection as well. This morning he continued to experience shortness of breath, the EMS and upon their arrival it was noted he was in atrial fibrillation. He has no past history of A. fib. He does take aspirin Plavix and Xarelto. In the ER lab work was obtained which did show an elevated white count as well as elevated lactate. Chest x-ray did show bilateral opacities left more than right. Bone cultures were obtained and he was initiated on antibiotics. He has been admitted for further workup and evaluation. Presently he appears to be some mild respiratory distress with conversational dyspnea he sitting up in a chair unable to lie down in bed. His PO2 is 97-95% on 2 L he continues to be A. fib on the monitor at times heart rate as high as 120s. HEENT review this case with Dr. Kim who agrees with plan. - Past Med Surg Social Fam HX - Past Medical History Medical history: asthma, COPD, coronary artery disease, DVT, hyperlipidemia, hypertension, myocardial infarction, RA, other Psychiatric history: no psych history - Past Surgical History Surgical History: angioplasty/stent, herniorrhaphy, LE Bypass, LE vascular intervention, vascular surgery - Social History Smoking Status: Former smoker Smokeless Tobacco Status: No Alcohol use: none Drug use: none - Family History Mother Living Status: Hx Family Respiratory Disorders: Yes Father Living Status: Hx Family Cancer: Yes Internal Medicine - H&P: Meds Clopidogrel [Plavix] 75 mg PO DAILY 01/25/16 [History] Omeprazole [PriLOSEC] 20 mg PO DAILY 01/25/16 [History] Atorvastatin [Lipitor] 40 mg PO HS 07/17/16 [History] Aspirin Enteric Coated [Aspirin EC] 81 mg PO DAILY #30 tablet. 07/27/16 [Rx] Metoprolol [Lopressor] 25 mg PO DAILY #30 tablet 07/27/16 [Rx] Fluticasone/Salmeterol [Advair 500-50 Diskus] 1 each IH BID 04/08/17 [History] Rivaroxaban [Xarelto] 10 mg PO 1700 04/08/17 [History] Furosemide [Lasix] 20 mg PO BID 06/14/17 [History] Ipratropium/Albuterol Neb [Duoneb] 3 ml IH Q4-6H PRN 06/14/17 [History] Nitroglycerin [Nitrostat] 0.4 mg PO Q5M PRN 06/14/17 [History] Tamsulosin [Flomax] 0.4 mg PO BID 06/14/17 [History] 3 Allergy/AdvReac Type Severity Reaction Status Date / Time No Known Allergies Allergy Verified 04/08/17 10:06 All Systems PM: A 10-system review of systems was performed and is negative for pertinent findings except as documented above in the HPI. - Constitutional Constitutional: fatigue, no chills, no fever(s), no night sweats - EENT Eyes: no change in vision, no discharge, no pain, no photophobia Nose, mouth and throat: no dysphagia, no nasal discharge, no neck pain, no sore throat - Cardiovascular Cardiovascular ROS IM: dyspnea on exertion, edema, orthopnea, no chest pain, no diaphoresis, no dyspnea, no lightheadedness, no palpitations, no syncope - Respiratory Respiratory: cough, dyspnea, chest congestion, no wheezing, no excessive phlegm production - Gastrointestinal Gastrointestinal: no abdominal pain, no diarrhea, no hematemesis, no hematochezia, no melena, no nausea, no vomiting - Musculoskeletal Musculoskeletal ROS IM: no numbness, no tingling - Integumentary Integumentary IM: no rash, no unusual bruising - Neurological Neurological ROS: no confusion, no convulsions, no focal weakness, no numbness, no tingling, no tremor(s) - Hematologic/Lymphatic Hematologic/Lymphatic: no easy bruising - Constitutional Vitals: Temp Pulse Resp BP Pulse Ox 98.8 F 109 24 101/90 97 06/14/17 19:21 06/14/17 21:56 06/14/17 22:47 06/14/17 22:47 06/14/17 21:56 General appearance: Present: mild distress, A&O X 3 - Head Head exam: Present: atraumatic, normocephalic - Eye Eye exam: Present: PERRL, conjuntiva pink, sclera anicteric Pupils: Present: PERRL - Neck Neck exam general surgery: Present: supple, trachea midline. Absent: lymphadenopathy - Respiratory Respiratory exam: Present: rales. Absent: accessory muscle use, rhonchi, wheezes - Cardiovascular Cardiovascular exam: Present: irregular rhythm, +S1, +S2. Absent: diastolic murmur, gallop, rubs, systolic murmur - GI/Abdominal GI/Abdominal exam: Present: normal bowel sounds, soft, no peritoneal signs. Absent: distended, tenderness - Extremities Exam Extremities exam: Present: pedal edema, warm, radial pulses palpable and symmetrical. Absent: calf tenderness, cyanotic - Neurological Exam Neurological exam: Present: CN II-XII intact, oriented X3, no focal deficits. Absent: pronater drift, facial droop, speech deficit - Skin Skin exam: Present: dry, intact Internal Med - H&P Results - Labs CBC & Chem 7: 06/14/17 19:30 06/14/17 19:30 - Impressions atrial fibrillation - Diagnostic Studies Other Images Additional comments: Chest X-Ray 06/14/17 19:22 IMPRESSION: Stable mild cardiomegaly. Airspace opacities at the bilateral lung bases, left more than right, may be related to pneumonia versus atelectasis. D/ / 06/14/2017 20:02:20 Pradip Navarro MD / [facility] Interpreting Provider: Pradip Navarro MD <JulioChanojennifer - Last Filed: 06/15/17 01:00> Date of Encounter: 06/15/17 Internal Medicine - H&P: HPI History of present illness: Mr. Yeung is a 82 year old male All Systems PM: A 10-system review of systems was performed and is negative for pertinent findings except as documented above in the HPI. - Constitutional Vitals: Temp Pulse Resp BP Pulse Ox 98 F 148 26 103/94 98 06/14/17 23:58 06/14/17 23:58 06/14/17 23:58 06/14/17 23:58 06/14/17 23:58 Internal Med - H&P Results - Labs CBC & Chem 7: 06/14/17 19:30 06/14/17 19:30 - Attending Attestation I have seen and examined Pt independently. I have discussed with REAL ESTATE LISTING CONSULTANT Ms Romano regarding the management plan, agree with the documentation.
[2017-06-14] MEDS: Ipratropium/Albuterol Neb 3 ML IH SCH (23:39)
[2017-06-14] MEDS ORDERED: Furosemide 40 MG/4 ML VIAL IVP ONE (23:48)
[2017-06-14] MEDS ORDERED: Furosemide 40 MG/4 ML VIAL ONE (23:51)
[2017-06-14] MEDS: Benzonatate 100 MG CAPSULE PO PRN (23:54)
[2017-06-15] MEDS ORDERED: Melatonin 3 MG TABLET PO ONE (00:12)
[2017-06-15] MEDS: predniSONE 20 MG TABLET PO SCH ×2 (00:33→07:49)
[2017-06-15 01:35] LABS: Basophils % 0.1 %; Eosinophils # 0.1 K/mcL (0.0-0.6); Eosinophils % 0.6 %; Hematocrit 32.7 % (37.5-50.1); Hemoglobin 9.7 g/dL (12.9-16.9); Lymphocytes # 1.5 K/mcL (0.6-4.6); Lymphocytes % 9.7 %; Mean Corpuscular HGB Conc 29.7 g/dL (31.6-35.5); Mean Corpuscular Hemoglobin 21.1 pg (28.0-33.3); Mean Corpuscular Volume 71.1 fL (83.0-100.0); Mean Platelet Volume 9.8 fL (9.4-12.4); Monocytes # 1.8 K/mcL (0.0-1.3); Monocytes % 11.6 %; Neutrophils # 11.9 K/mcL (1.6-8.9); Nucleated Red Blood Cells 0.1 /100 WBC (0); Platelet Count 442 K/mcL (140-400); Red Cell Distribution Width 18.5 % (11.5-14.5)
[2017-06-15 01:59] LABS: BUN/Creatinine Ratio 23 (6-26); Blood Urea Nitrogen 23 mg/dL (8-23); Calcium 8.9 mg/dL (8.6-10.3); Carbon Dioxide 27 mEq/L (23-29); Chloride 96 mEq/L (98-107); Chol/HDL Ratio 2.4 (0-4.9); Cholesterol 106 mg/dL (< 200); Glucose 145 mg/dL (70-105); HDL Cholesterol 44 mg/dL (40-59); LDL Cholesterol,Calculated 53 mg/dL (0-99); Magnesium 1.8 mg/dL (1.6-2.6); Osmolality,Calculated 282 (280-300); Potassium 3.9 mEq/L (3.5-5.1); Sodium 133 mEq/L (136-145); Triglycerides 47 mg/dL (< 150); eGFR For African Americans > 60 (> 60); eGFR For Non-African Americans > 60 (> 60)
[2017-06-15] MEDS: Ipratropium/Albuterol Neb 3 ML IH SCH ×5 (04:04→22:32)
[2017-06-15] MEDS: dilTIAZem HCl 100 MG in D5% in Water 50 ML IVC SCH ×2 (04:06→13:30)
[2017-06-15] MEDS: Benzonatate 100 MG CAPSULE PO PRN (05:39)
[2017-06-15] MEDS: Aspirin Enteric Coated 81 MG Tablet PO SCH (07:49)
[2017-06-15] MEDS: Furosemide 40 MG/4 ML VIAL IVP SCH ×2 (07:49→16:06)
[2017-06-15] MEDS ORDERED: Furosemide 20 MG TABLET PO SCH (09:00)
[2017-06-15] MEDS ORDERED: Perflutren Lipid Microsphere 1.3 ML in 0.9 % Sodium Chloride 8.7 ML IVP ONE (09:15)
[2017-06-15] MEDS ORDERED: Perflutren Lipid Microsphere 2 ML VIAL ONE (09:24)
--- NOTE | 2017-06-15 10:38 | Cardiology Consult Note ---
Date of Encounter: 06/15/17 Time of Encounter: 08:45 Assessment and Plan (1) Atrial fibrillation with rapid ventricular response Current Visit: Yes Status: Acute H/o PAF on xarelto. Presented with atrial fibrillation with RVR, likely due to acute respiratory distress. Agree with cardizem gtt. Titrate to keep HR less than 100. Once rate controlled recommend converting to beta-risa due to CAD and CHF. Home beta-risa on hold due to hypotension. (2) CHF (congestive heart failure) Current Visit: Yes Status: Chronic H/o mild systolic dysfunction and moderate diastolic dysfunction. Presents with acute on chronic systolic and diastolic CHF. SOB multifactoral with possible PNA and COPD exacerbation. BNP 504. TTE 07/2016LVEF 45-50%. Mild to low normal LV systolic function. Even with use of Definity, LV wall motion could not be well visualized. There is evidence of moderate diastolic dysfunction of the left ventricle. Normal right ventricular size and function. No significant valvular dysfunction. No pulmonary hypertension. IV lasix. Strict I&O and daily weights. TTE to re-eval EF. Restart beta-risa once b/p allows. Qualifiers: Congestive heart failure type: unspecified congestive heart failure type Congestive heart failure chronicity: unspecified congestive heart failure chronicity Qualified Code(s): I50.9 - Heart failure, unspecified (3) CAD (coronary artery disease) Current Visit: No Status: Acute H/o PCI in 2002 per patient. Last stress test 06/2016 negative for ischemia ( [facility]). Continue asa, plavix, statin, and bb. Qualifiers: Coronary Disease-Associated Artery/Lesion type: [place] artery [place] vs. transplanted heart: [place] heart Associated angina: without angina Qualified Code(s): I25.10 - Atherosclerotic heart disease of [place] coronary artery without angina pectoris Discussion w patient/family: The assessment and plan as outlined above was discussed with the patient and/or family members who expressed understanding and agreement. All questions were answered. Thank you for involving us in the care of your patient. Please call with any questions. History of Present Illness Consult date: 06/15/17 Requesting physician: Marilyn Romano Consult reason: Atrial fibrillation with RVR, CHF Chief complaint: SOB, cough, and orthopnea for 2 weeks History of present illness: Mr. Yeung is a 82 year old male with a past medical history of NC and PCI in 2002, mild systolic dysfunction, atrial fibrillation on xarelto, COPD, and HTN who presents with the c/o SOB, cough, and orthopnea for two weeks. He also noted mild pedal edema. His initial work-up revealed atrial fibrillation with RVR and he was placed on a cardizem gtt. Chest x-ray showed stable mild cardiomegaly. Airspace opacities at the bilateral lung bases, left more than right, may be related to pneumonia versus atelectasis. BNP 504. Troponin elevated u to 0.05. He was started on IV antibiotic for pneumonia and treatment for COPD exacerbation and systolic CHF. On my exam he continues to have orthopnea, conversational dyspnea, and significant BLE edema. Admits to his chest being sore when he coughs. He follows with Dr. Munoz a hedge fund accountant in [place]. Denies recent cardiac work-up. Past Med Surg Social Fam HX - Past Medical History Medical history: asthma, COPD (Emphysema), coronary artery disease, DVT ( reports multiple), hyperlipidemia, hypertension, myocardial infarction (2002), RA, other (PVD) Psychiatric history: no psych history - Past Surgical History Surgical History: angioplasty/stent (x2 in 2002), herniorrhaphy (right inguinal 09/2011; ventral hernia repair 09/2007), LE Bypass, LE vascular intervention, vascular surgery (Right thrombectomy fem/fem bypass graft 01/03/2014; Fem/Fem bypass 2006; left fem/pop bypass 1994) - Social History Smoking Status: Never smoker Smokeless Tobacco Status: No Alcohol use: none Drug use: none - Family History Mother Living Status: Hx Family Respiratory Disorders: Yes Father Living Status: Hx Family Cancer: Yes Medications and Allergies Clopidogrel [Plavix] 75 mg PO DAILY 01/25/16 [History] Omeprazole [PriLOSEC] 20 mg PO DAILY 01/25/16 [History] Atorvastatin [Lipitor] 40 mg PO HS 07/17/16 [History] Aspirin Enteric Coated [Aspirin EC] 81 mg PO DAILY #30 tablet. 07/27/16 [Rx] Metoprolol [Lopressor] 25 mg PO DAILY #30 tablet 07/27/16 [Rx] Fluticasone/Salmeterol [Advair 500-50 Diskus] 1 each IH BID 10/30/17 [History] Rivaroxaban [Xarelto] 10 mg PO 1700 04/08/17 [History] Furosemide [Lasix] 20 mg PO BID 06/14/17 [History] Ipratropium/Albuterol Neb [Duoneb] 3 ml IH Q4-6H PRN 06/14/17 [History] Nitroglycerin [Nitrostat] 0.4 mg PO Q5M PRN 06/14/17 [History] Tamsulosin [Flomax] 0.4 mg PO BID 06/14/17 [History] 3 Allergy/AdvReac Type Severity Reaction Status Date / Time No Known Allergies Allergy Verified 04/08/17 10:06 All Systems Review: A 10-system review of systems was performed and is negative for pertinent findings except as documented above in the HPI. Physical Examination Vital Signs, Last 4 Hours Temp Pulse Resp BP Pulse Ox 06/15/17 07:02 98.1 F 87 18 98/64 99 General: Conversant, No Apparent Distress HEENT: Atraumatic, Normocephaly, Mucus Membranes Moist Neck: No JVD, Normal carotid pulses Cardiac: Other (Apical irregular) Lungs: Other (conversational dyspnea noted. Loud rhonci scattered throughout. ) Neuro: Alert and responsive, No focal deficits noted Abdomen: Soft, Non-Tender Skin: No rashes noted on visualized skin Musculoskeletal: No Chest Wall Tenderness Extremities: No Clubbing, No Cyanosis, No Edema, Normal Pulses Results 06/15/17 01:11 06/15/17 01:11 Lab Results 06/15/17 06/15/17 06/15/17 01:11 01:11 01:11 WBC 15.4 H Hgb 9.7 L Hct 32.7 L Plt Count 442 H Sodium 133 L Potassium 3.9 Chloride 96 L Carbon Dioxide 27 BUN 23 Creatinine 1.00 Glucose 145 H Calcium 8.9 Magnesium 1.8 Troponin I 0.07 H* TSH 06/15/17 06/15/17 01:11 07:58 WBC Hgb Hct Plt Count Sodium Potassium Chloride Carbon Dioxide BUN Creatinine Glucose Calcium Magnesium Troponin I 0.05 H* TSH 0.573 - Imaging and Cardiology Echo: pending, report reviewed - EKG Interpretation EKG results cardiology: personally reviewed (Atrial fibrillation with RVR, HR 165, no ST changes.) Consult Discharge Plan - Plan Referrals: Dane Justin MD [Primary Care Provider] -
[2017-06-15] MEDS ORDERED: *HR* LORazepam 2 MG/ML VIAL ONE (11:03)
[2017-06-15] MEDS ORDERED: *HR* LORazepam 2 MG/ML VIAL IVP ONE (11:07)
[2017-06-15] MEDS: Budesonide/Formoterol 160/4.5 MDI IH SCH ×2 (11:29→21:27)
[2017-06-15] MEDS ORDERED: *HR* Rivaroxaban 10 MG TABLET PO SCH (17:00)
--- NOTE | 2017-06-15 18:36 | Internal Med Progress Note ---
Date of Encounter: 06/15/17 Time of Encounter: 11:00 - Assessment and plan (1) Community acquired pneumonia Current Visit: Yes Status: Acute Assessment and plan: -Will continue IV azithromycin and IV ceftriaxone Qualifiers: Laterality: unspecified laterality Qualified Code(s): J18.9 - Pneumonia, unspecified organism (2) Acute exacerbation of chronic obstructive airways disease Current Visit: No Status: Chronic Assessment and plan: -Will continue oral prednisone in addition to DuoNeb's (3) Atrial fibrillation with rapid ventricular response Current Visit: Yes Status: Acute Assessment and plan: -Controlled on diltiazem drip -Continue Xarelto for anticoagulation -Cardiology consult and appreciate recommendations (4) CHF (congestive heart failure) Current Visit: Yes Status: Acute Assessment and plan: -Acute on chronic mixed CHF - EF slightly worsened to 35-40% on TTE today. -Continue medical therapy with BB/ACEI and diuresis. -CAD sp PCI - continue aspirin, BB, and statin -Consider LHC once respiratory status stabilizes. Qualifiers: Congestive heart failure chronicity: chronic Qualified Code(s): I50.9 - Heart failure, unspecified (5) DVT prophylaxis Current Visit: No Status: Acute Assessment and plan: -On Xarelto - Subjective Interval history: Patient was anxious this morning and was given Ativan for relief - Constitutional Vitals: Temp Pulse Resp BP Pulse Ox 97.9 F 95 16 102/80 95 06/15/17 16:15 06/15/17 16:15 06/15/17 16:15 06/15/17 16:15 06/15/17 16:15 General appearance: Present: mild distress, A&O X 3 - Respiratory Respiratory exam: Present: CTAB. Absent: accessory muscle use, rales, rhonchi, wheezes - Cardiovascular Cardiovascular exam: Present: RRR, +S1, +S2. Absent: diastolic murmur, gallop, rubs, systolic murmur Internal Medicine: Result - Labs CBC & Chem 7: 06/15/17 01:11 06/15/17 01:11 Labs: Short CBC 06/15/17 Range/Units 01:11 WBC 15.4 H (4.3-11.1) K/mcL Hgb 9.7 L (12.9-16.9) g/dL Hct 32.7 L (37.5-50.1) % Plt Count 442 H (140-400) K/mcL Neutrophils # 11.9 H (1.6-8.9) K/mcL BMP 06/15/17 01:11 Sodium 133 L Potassium 3.9 Chloride 96 L Carbon Dioxide 27 BUN 23 Creatinine 1.00 Glucose 145 H Calcium 8.9 Cardiac Enzymes 06/15/17 06/15/17 Range/Units 01:11 07:58 Troponin I 0.07 H* 0.05 H* (< 0.04) ng/mL - Impressions Impressions Echocardiogram 06/14/17 23:37 Impressions: LVEF 35-40%. Moderate global and segmental left ventricular systolic dysfunction. Severe pulmonary hypertension. No significant valvular dysfunction. Left Ventricular Wall Motion: Rest Echo Findings The apex, apical inferior, mid inferior, basal inferior, apical anterior, mid anterior, basal anterior, apical septal, mid inferior septal, basal inferior septal, apical lateral, mid anterior lateral, basal anterior lateral, mid anterior septal, mid inferior lateral, basal anterior septal and basal inferior lateral yeager were hypokinetic. Findings: Right Ventricle * Normal right ventricular structure and function. Left Atrium * Normal left atrial size. Right Atrium * Normal right atrial size. Interatrial Septum * No evidence of PFO by color Doppler. Aorta * Normally sized aortic root. Pericardium * The pericardium appears normal. ECG Findings * Atrial fibrillation. Left Ventricle * Indeterminate diastolic function. * LVEF 35-40%. * Moderate global and segmental left ventricular systolic dysfunction. Mitral Valve * Normal mitral valve structure. * Mild mitral regurgitation. * No mitral stenosis. Study Quality * Technically sub-optimal due to clinical status. Pulmonic Valve * No pulmonic stenosis. * Trace pulmonic regurgitation. Aortic Valve * No aortic stenosis. * Aortic valve not well visualized. * Trace aortic regurgitation. IVC * Normal IVC dimensions and inspiratory collapse. Tricuspid Valve * Estimated RVSP is 58 mmHg. * Severe pulmonary hypertension. * No tricuspid stenosis. * Mild tricuspid regurgitation. Consult Discharge Plan - Plan Referrals: Dane Justin MD [Primary Care Provider] -
[2017-06-15] MEDS: Azithromycin 500 MG in D5% in Water 250 ML IVPB SCH (20:17)
[2017-06-15] MEDS: cefTRIAXone 1,000 MG in Water for inj. (sterile) 10 ML IVP SCH (20:18)
[2017-06-15] MEDS ORDERED: *HR* LORazepam 2 MG/ML VIAL IVP PRN (21:43)
[2017-06-16] MEDS: Ipratropium/Albuterol Neb 3 ML IH SCH ×6 (04:16→23:19)
[2017-06-16] MEDS: Budesonide/Formoterol 160/4.5 MDI IH SCH ×2 (08:03→20:30)
[2017-06-16] MEDS: Aspirin Enteric Coated 81 MG Tablet PO SCH (09:03)
[2017-06-16] MEDS: Furosemide 40 MG/4 ML VIAL IVP SCH ×2 (09:04→22:04)
[2017-06-16] MEDS: predniSONE 20 MG TABLET PO SCH (09:04)
[2017-06-16 10:12] LABS: Basophils % 0.1 %; Eosinophils % 0.1 %; Hematocrit 31.6 % (37.5-50.1); Hemoglobin 9.4 g/dL (12.9-16.9); Immature Granulocytes % 0.5 % (0-4); Lymphocytes # 1.5 K/mcL (0.6-4.6); Lymphocytes % 9.1 %; Mean Corpuscular HGB Conc 29.7 g/dL (31.6-35.5); Mean Corpuscular Hemoglobin 21.2 pg (28.0-33.3); Mean Corpuscular Volume 71.3 fL (83.0-100.0); Monocytes # 1.6 K/mcL (0.0-1.3); Monocytes % 9.7 %; Neutrophils # 13.4 K/mcL (1.6-8.9); Nucleated Red Blood Cells 0.1 /100 WBC (0); Platelet Count 464 K/mcL (140-400); Red Blood Count 4.43 M/mcL (4.19-5.50); Segmented Neutrophils % 80.5 %
[2017-06-16 10:26] LABS: BUN/Creatinine Ratio 27 (6-26); Blood Urea Nitrogen 25 mg/dL (8-23); Calcium 9.1 mg/dL (8.6-10.3); Carbon Dioxide 26 mEq/L (23-29); Chloride 95 mEq/L (98-107); Glucose 140 mg/dL (70-105); Osmolality,Calculated 277 (280-300); Potassium 3.6 mEq/L (3.5-5.1); Sodium 130 mEq/L (136-145); eGFR For African Americans > 60 (> 60); eGFR For Non-African Americans > 60 (> 60)
--- NOTE | 2017-06-16 11:45 | Cardiology Progress Note ---
Date of Encounter: 06/16/17 Time of Encounter: 10:00 Assessment and Plan (1) Atrial fibrillation with rapid ventricular response Current Visit: Yes Status: Acute H/o PAF on xarelto. Presented with atrial fibrillation with RVR, likely due to acute respiratory distress. Agree with cardizem gtt. Titrate to keep HR less than 100. On low dose currently. Discussed with RN, they will increase as tolerated. Once rate controlled recommend converting to beta-risa due to CAD and CHF. Home beta-risa on hold due to hypotension. Will restart. b/p improved. Hold xarelto for plan for LHC. Start lovenox injections. When restarted recommend 20 mg daily. Not clear why he is only on 10 mg. (2) CAD (coronary artery disease) Current Visit: No Status: Acute H/o PCI in 2002 per patient. Last stress test 06/2016 negative for ischemia ( [facility]). Continue asa, plavix, statin, and bb. Will consider LHC once stable from breathing standpoint. Qualifiers: Coronary Disease-Associated Artery/Lesion type: [place] artery [place] vs. transplanted heart: [place] heart Associated angina: without angina Qualified Code(s): I25.10 - Atherosclerotic heart disease of [place] coronary artery without angina pectoris (3) CHF (congestive heart failure) Current Visit: Yes Status: Acute H/o mild systolic dysfunction and moderate diastolic dysfunction. Presents with acute on chronic systolic and diastolic CHF. SOB multifactoral with possible PNA and COPD exacerbation. BNP 504. TTE shows EF reduced at 35-40% this admit. Recommend [facility] for further evaluation once breathing has improved. Continues to have significant orthopnea. TTE 07/2016 LVEF 45-50%. IV lasix 40 mg BID. Give extra 40 mg IV today. 1500 ml fluid restriction. Strict I&O and daily weights. Start toprol XL. consider aceI prior to d/c. Qualifiers: Congestive heart failure type: combined Congestive heart failure chronicity : acute on chronic Qualified Code(s): I50.43 - Acute on chronic combined systolic (congestive) and diastolic (congestive) heart failure Discussion w patient/family: The assessment and plan as outlined above was discussed with the patient and/or family members who expressed understanding and agreement. All questions were answered. Thank you for involving us in the care of your patient. Please call with any questions. Subjective Principal diagnosis: CHF, PNA, COPD, afib Interval history: Patient reports he is breathing better. Continues to have orthopnea. Sitting in the chair. Objective Vital Signs, Last 4 Hours Pulse Resp BP Pulse Ox 06/16/17 11:29 130 116/72 06/16/17 11:10 18 100 06/16/17 08:28 105/75 06/16/17 08:03 18 98 General: Conversant, No Apparent Distress HEENT: Atraumatic, Normocephaly, Mucus Membranes Moist Neck: No JVD, Normal carotid pulses Cardiac: Other (Respiratins easy, rhonci and wheezes scattered throughout. ) Lungs: Normal Breath Sounds, No Wheeze, Rales, Rhonchi Neuro: Alert and responsive, No focal deficits noted Abdomen: Soft, Non-Tender Skin: No rashes noted on visualized skin Musculoskeletal: No Chest Wall Tenderness Extremities: No Clubbing, No Cyanosis, Normal Pulses, Other (2+ BLE edema up to knees) Results 06/16/17 10:04 06/16/17 10:04 Lab Results 06/16/17 06/16/17 10:04 10:04 WBC 16.6 H Hgb 9.4 L Hct 31.6 L Plt Count 464 H Sodium 130 L Potassium 3.6 Chloride 95 L Carbon Dioxide 26 BUN 25 H Creatinine 0.91 Glucose 140 H Calcium 9.1 - Imaging and Cardiology Echo: report reviewed - EKG Interpretation EKG results cardiology: personally reviewed - VTE Documentation of Mechanical Device: Intermittent pneumatic compression device Consult Discharge Plan - Plan Referrals: Dane Justin MD [Primary Care Provider] -
[2017-06-16] MEDS ORDERED: Furosemide 40 MG/4 ML VIAL IVP ONE (12:00)
[2017-06-16] MEDS: Metoprolol XL (24 HR) Succ 25 MG TAB.ER.24H PO SCH (12:27)
[2017-06-16] MEDS: *HR* Enoxaparin 80 MG/0.8 ML SYRINGE SQ SCH ×2 (12:27→20:10)
[2017-06-16] MEDS: dilTIAZem HCl 100 MG in D5% in Water 50 ML IVC SCH ×2 (12:42→22:04)
[2017-06-16] MEDS ORDERED: Amiodarone Premix 360 MG/200 ML BAG IVC ONE (13:56)
[2017-06-16] MEDS ORDERED: Amiodarone Premix 150 MG/100 ML BAG IVPB ONE (13:56)
[2017-06-16] MEDS: *HR* LORazepam 0.5 MG TABLET PO PRN ×2 (14:12→21:09)
--- NOTE | 2017-06-16 18:02 | Internal Med Progress Note ---
Date of Encounter: 06/16/17 Time of Encounter: 11:00 - Assessment and plan (1) Community acquired pneumonia Current Visit: Yes Status: Acute Assessment and plan: -Patient With leukocytosis on oral prednisone but has been afebrile -Will continue IV azithromycin and IV ceftriaxone Qualifiers: Laterality: unspecified laterality Qualified Code(s): J18.9 - Pneumonia, unspecified organism (2) Acute exacerbation of chronic obstructive airways disease Current Visit: No Status: Chronic Assessment and plan: -Will continue oral prednisone in addition to DuoNeb's (3) Atrial fibrillation with rapid ventricular response Current Visit: Yes Status: Acute Assessment and plan: -Patient's heart rate was not controlled on Cardizem drip so amiodarone drip was started per cardiology -Xarelto discontinued and patient started on Lovenox for preparation for left heart catheterization -Cardiology consultED and appreciate recommendations (4) CHF (congestive heart failure) Current Visit: Yes Status: Acute Assessment and plan: -Echocardiogram on 06/15/17 showed LVEF of 35-40% with moderate global/segmental left ventricle systolic dysfunction in addition to severe pulmonary hypertension. -Continue IV diuresis -CAD sp PCI - continue aspirin, BB, and statin -Cardiology following with recommendation for [facility] Qualifiers: Congestive heart failure type: combined Congestive heart failure chronicity : acute on chronic Qualified Code(s): I50.43 - Acute on chronic combined systolic (congestive) and diastolic (congestive) heart failure (5) DVT prophylaxis Current Visit: No Status: Acute Assessment and plan: -Xarelto discontinued and Lovenox started in preparation for left heart catheterization - Subjective Interval history: Patient's heart rate was not controlled on Cardizem drip so amiodarone drip was started per cardiology Diuresis for heart failure exacerbation; Planning for left heart catheterization Continue IV antibiotics for CAP/AECOPD - Constitutional Vitals: Temp Pulse Resp BP Pulse Ox 97.4 F L 100 21 94/68 97 06/16/17 15:45 06/16/17 17:00 06/16/17 16:49 06/16/17 17:00 06/16/17 16:49 General appearance: Present: mild distress, A&O X 3 - Respiratory Respiratory exam: Present: CTAB. Absent: accessory muscle use, rales, rhonchi, wheezes - Cardiovascular Cardiovascular exam: Present: irregular rhythm Internal Medicine: Result - Labs CBC & Chem 7: 06/16/17 10:04 06/16/17 10:04 Labs: Short CBC 06/16/17 Range/Units 10:04 WBC 16.6 H (4.3-11.1) K/mcL Hgb 9.4 L (12.9-16.9) g/dL Hct 31.6 L (37.5-50.1) % Plt Count 464 H (140-400) K/mcL Neutrophils # 13.4 H (1.6-8.9) K/mcL BMP 06/16/17 10:04 Sodium 130 L Potassium 3.6 Chloride 95 L Carbon Dioxide 26 BUN 25 H Creatinine 0.91 Glucose 140 H Calcium 9.1 - VTE Documentation of Mechanical Device: Intermittent pneumatic compression device Consult Discharge Plan - Plan Referrals: Dane Justin MD [Primary Care Provider] -
[2017-06-16] MEDS: cefTRIAXone 1,000 MG in Water for inj. (sterile) 10 ML IVP SCH (20:09)
[2017-06-16] MEDS: Azithromycin 500 MG in D5% in Water 250 ML IVPB SCH (20:09)
[2017-06-16] MEDS ORDERED: *HR* LORazepam 2 MG/ML VIAL ONE ×2 (21:22→23:03)
[2017-06-16] MEDS ORDERED: *HR* LORazepam 2 MG/ML VIAL IVP ONE ×2 (21:30→23:06)
[2017-06-16] MEDS: Amiodarone Premix 360 MG/200 ML BAG IVC SCH (21:31)
[2017-06-17] MEDS: Ipratropium/Albuterol Neb 3 ML IH SCH ×5 (03:42→20:38)
[2017-06-17] MEDS: *HR* Enoxaparin 80 MG/0.8 ML SYRINGE SQ SCH ×2 (06:24→17:20)
[2017-06-17] MEDS: Aspirin Enteric Coated 81 MG Tablet PO SCH (08:28)
[2017-06-17] MEDS: Metoprolol XL (24 HR) Succ 25 MG TAB.ER.24H PO SCH (08:28)
[2017-06-17] MEDS: predniSONE 20 MG TABLET PO SCH (08:28)
[2017-06-17] MEDS: Furosemide 40 MG/4 ML VIAL IVP SCH (08:29)
[2017-06-17] MEDS: Amiodarone Premix 360 MG/200 ML BAG IVC SCH ×2 (09:09→20:49)
[2017-06-17 09:49] LABS: Basophils % 0.1 %; Eosinophils % 0.1 %; Hematocrit 31.9 % (37.5-50.1); Hemoglobin 9.4 g/dL (12.9-16.9); Immature Granulocytes % 1.3 % (0-4); Lymphocytes # 1.8 K/mcL (0.6-4.6); Lymphocytes % 10.3 %; Mean Corpuscular HGB Conc 29.5 g/dL (31.6-35.5); Mean Corpuscular Hemoglobin 21.1 pg (28.0-33.3); Mean Corpuscular Volume 71.5 fL (83.0-100.0); Mean Platelet Volume 10.3 fL (9.4-12.4); Monocytes # 1.9 K/mcL (0.0-1.3); Monocytes % 10.8 %; Neutrophils # 13.8 K/mcL (1.6-8.9); Nucleated Red Blood Cells 0.2 /100 WBC (0); Platelet Count 513 K/mcL (140-400); Red Blood Count 4.46 M/mcL (4.19-5.50); Red Cell Distribution Width 18.1 % (11.5-14.5); Segmented Neutrophils % 77.4 %
--- NOTE | 2017-06-17 10:10 | Electrocardiograph Report ---
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
[2017-06-17 11:07] LABS: BUN/Creatinine Ratio 23 (6-26); Blood Urea Nitrogen 31 mg/dL (8-23); Calcium 9.1 mg/dL (8.6-10.3); Carbon Dioxide 30 mEq/L (23-29); Chloride 92 mEq/L (98-107); Glucose 130 mg/dL (70-105); Osmolality,Calculated 282 (280-300); Potassium 3.5 mEq/L (3.5-5.1); Sodium 132 mEq/L (136-145); eGFR For African Americans > 60 (> 60); eGFR For Non-African Americans 52 (> 60)
[2017-06-17] MEDS: Budesonide/Formoterol 160/4.5 MDI IH SCH ×2 (11:25→20:38)
--- NOTE | 2017-06-17 12:13 | Cardiology Progress Note ---
Date of Encounter: 06/17/17 Time of Encounter: 12:12 Assessment and Plan (1) Atrial fibrillation with rapid ventricular response Current Visit: Yes Status: Acute H/o PAF on xarelto. Presented with atrial fibrillation with RVR, likely due to acute respiratory distress. Cardizem discontinued due to hypotension and amio started yesterday. Avg HR 97 bpm. Improving. HR currently 100-115 afib. One paola seen. Continue amiodarone IV. Convert to oral after IV load. Hold xarelto for plan for LHC. On lovenox injections. (2) CHF (congestive heart failure) Current Visit: Yes Status: Acute H/o mild systolic dysfunction and moderate diastolic dysfunction. Presents with acute on chronic systolic and diastolic CHF. SOB multifactoral with possible PNA and COPD exacerbation. BNP 504. TTE shows EF reduced at 35-40% this admit. Recommend C for further evaluation once breathing has improved. Continues to have significant orthopnea. TTE 07/2016 LVEF 45-50%. IV lasix 40 mg TID given yesterday. Decrease today. Noted to have elevated creatinine today, likely due to low blood pressure. Re-check BNP and CXR. Continues to have positive fluid status depite IV diuresis. 1500 ml fluid restriction. Strict I&O and daily weights. Start toprol XL. consider aceI prior to d/c. LHC when stable from respiratory standpoint. Continues to have fluid overload with orthopnea. Will continue to follow with you. Qualifiers: Congestive heart failure type: combined Congestive heart failure chronicity : acute on chronic Qualified Code(s): I50.43 - Acute on chronic combined systolic (congestive) and diastolic (congestive) heart failure (3) CAD (coronary artery disease) Current Visit: No Status: Acute H/o PCI in 2002 per patient. Last stress test 06/2016 negative for ischemia ( [facility]). Continue asa, plavix, statin, and bb. Will consider LHC once stable from breathing standpoint to evaluate reduced EF. Qualifiers: Coronary Disease-Associated Artery/Lesion type: [place] artery [place] vs. transplanted heart: [place] heart Associated angina: without angina Qualified Code(s): I25.10 - Atherosclerotic heart disease of [place] coronary artery without angina pectoris Discussion w patient/family: The assessment and plan as outlined above was discussed with the patient and/or family members who expressed understanding and agreement. All questions were answered. Thank you for involving us in the care of your patient. Please call with any questions. Subjective Principal diagnosis: CHF, PNA, COPD, afib Interval history: Patient reports he is breathing better. Continues to have orthopnea. Sitting in the chair. Objective Vital Signs, Last 4 Hours Temp Pulse Resp BP Pulse Ox 06/17/17 11:58 104 28 119/75 100 06/17/17 11:53 102 06/17/17 11:50 102 28 119/75 100 06/17/17 11:45 98.4 F 112 22 119/79 100 06/17/17 11:27 17 99 06/17/17 10:25 111 24 98 06/17/17 08:16 104 General: Conversant, No Apparent Distress HEENT: Atraumatic, Normocephaly, Mucus Membranes Moist Neck: No JVD, Normal carotid pulses Cardiac: Other (Irregularly irregular) Lungs: Other (Rhonci scattered throughout) Neuro: Alert and responsive, No focal deficits noted Abdomen: Soft, Non-Tender Skin: No rashes noted on visualized skin Musculoskeletal: No Chest Wall Tenderness Extremities: No Clubbing, No Cyanosis, Normal Pulses, Other (2+ edema up to mid alvarez. ) Results 06/17/17 08:52 06/17/17 08:52 Lab Results 06/17/17 06/17/17 08:52 08:52 WBC 17.8 H Hgb 9.4 L Hct 31.9 L Plt Count 513 H Sodium 132 L Potassium 3.5 Chloride 92 L Carbon Dioxide 30 H BUN 31 H Creatinine 1.32 H Glucose 130 H Calcium 9.1 - Imaging and Cardiology Echo: report reviewed - VTE Documentation of Mechanical Device: Intermittent pneumatic compression device Consult Discharge Plan - Plan Referrals: Dane Justin MD [Primary Care Provider] -
[2017-06-17] MEDS: Furosemide 20 MG/2 ML VIAL IVP SCH (17:20)
--- NOTE | 2017-06-17 17:46 | Internal Med Progress Note ---
Date of Encounter: 06/17/17 Time of Encounter: 11:00 - Assessment and plan (1) Community acquired pneumonia Current Visit: Yes Status: Acute Assessment and plan: -Patient with leukocytosis on oral prednisone but has been afebrile -Will continue IV azithromycin and IV ceftriaxone Qualifiers: Laterality: unspecified laterality Qualified Code(s): J18.9 - Pneumonia, unspecified organism (2) Acute exacerbation of chronic obstructive airways disease Current Visit: No Status: Chronic Assessment and plan: -Patient's respiratory status is stable; COPD exacerbation has resolved Will continue oral prednisone in addition to DuoNeb's (3) Atrial fibrillation with rapid ventricular response Current Visit: Yes Status: Acute Assessment and plan: -Patient's heart rate was not controlled on Cardizem drip so amiodarone drip was started per cardiology -Xarelto discontinued and patient started on Lovenox for preparation for left heart catheterization -Cardiology consultED and appreciate recommendations (4) CHF (congestive heart failure) Current Visit: Yes Status: Acute Assessment and plan: -Echocardiogram on 06/15/17 showed LVEF of 35-40% with moderate global/segmental left ventricle systolic dysfunction in addition to severe pulmonary hypertension. -Continue IV diuresis -CAD sp PCI - continue aspirin, BB, and statin -Cardiology following with recommendation for [facility] Qualifiers: Congestive heart failure type: combined Congestive heart failure chronicity : acute on chronic Qualified Code(s): I50.43 - Acute on chronic combined systolic (congestive) and diastolic (congestive) heart failure (5) DVT prophylaxis Current Visit: No Status: Acute Assessment and plan: -Xarelto discontinued and Lovenox started in preparation for left heart catheterization - Subjective Interval history: Patient's heart rate was not controlled on Cardizem drip so amiodarone drip was started per cardiology Diuresis for heart failure exacerbation; Planning for left heart catheterization Respiratory status stable continue IV antibiotics for CAP/AECOPD - Constitutional Vitals: Temp Pulse Resp BP Pulse Ox 97.8 F 83 20 101/76 99 06/17/17 17:09 06/17/17 17:36 06/17/17 17:36 06/17/17 17:09 06/17/17 17:36 General appearance: Present: mild distress, A&O X 3 - Respiratory Respiratory exam: Present: CTAB. Absent: accessory muscle use, rales, rhonchi, wheezes - Cardiovascular Cardiovascular exam: Present: RRR, +S1, +S2. Absent: diastolic murmur, gallop, rubs, systolic murmur Internal Medicine: Result - Labs CBC & Chem 7: 06/17/17 08:52 06/17/17 08:52 Labs: Short CBC 06/17/17 Range/Units 08:52 WBC 17.8 H (4.3-11.1) K/mcL Hgb 9.4 L (12.9-16.9) g/dL Hct 31.9 L (37.5-50.1) % Plt Count 513 H (140-400) K/mcL Neutrophils # 13.8 H (1.6-8.9) K/mcL BMP 06/17/17 08:52 Sodium 132 L Potassium 3.5 Chloride 92 L Carbon Dioxide 30 H BUN 31 H Creatinine 1.32 H Glucose 130 H Calcium 9.1 - VTE Documentation of Mechanical Device: Intermittent pneumatic compression device Consult Discharge Plan - Plan Referrals: Dane Justin MD [Primary Care Provider] -
[2017-06-17] MEDS: *HR* LORazepam 0.5 MG TABLET PO PRN (21:37)
[2017-06-17] MEDS: Azithromycin 500 MG in D5% in Water 250 ML IVPB SCH (21:37)
[2017-06-17] MEDS: Benzonatate 100 MG CAPSULE PO PRN (21:37)
[2017-06-17] MEDS: cefTRIAXone 1,000 MG in Water for inj. (sterile) 10 ML IVP SCH (21:38)
[2017-06-18] MEDS: Ipratropium/Albuterol Neb 3 ML IH SCH ×7 (00:22→23:57)
[2017-06-18] MEDS: *HR* LORazepam 0.5 MG TABLET PO PRN ×2 (05:21→20:24)
[2017-06-18] MEDS: *HR* Enoxaparin 80 MG/0.8 ML SYRINGE SQ SCH ×2 (05:21→17:05)
[2017-06-18] MEDS: Benzonatate 100 MG CAPSULE PO PRN (05:24)
[2017-06-18] MEDS: dilTIAZem HCl 100 MG in D5% in Water 50 ML IVC SCH (05:42)
[2017-06-18] MEDS: Furosemide 20 MG/2 ML VIAL IVP SCH ×2 (07:32→11:53)
[2017-06-18] MEDS: predniSONE 20 MG TABLET PO SCH (07:32)
[2017-06-18] MEDS: Metoprolol XL (24 HR) Succ 25 MG TAB.ER.24H PO SCH (07:32)
[2017-06-18] MEDS: Aspirin Enteric Coated 81 MG Tablet PO SCH (07:32)
[2017-06-18] MEDS: Amiodarone Premix 360 MG/200 ML BAG IVC SCH ×2 (07:40→20:26)
[2017-06-18] MEDS: Budesonide/Formoterol 160/4.5 MDI IH SCH ×2 (07:55→19:51)
[2017-06-18 09:49] LABS: Basophils % 0.1 %; Eosinophils % 0.1 %; Hematocrit 31.4 % (37.5-50.1); Hemoglobin 9.5 g/dL (12.9-16.9); Immature Granulocytes % 1.3 % (0-4); Lymphocytes # 1.1 K/mcL (0.6-4.6); Lymphocytes % 5.6 %; Mean Corpuscular HGB Conc 30.3 g/dL (31.6-35.5); Mean Corpuscular Hemoglobin 21.4 pg (28.0-33.3); Mean Corpuscular Volume 70.7 fL (83.0-100.0); Mean Platelet Volume 9.6 fL (9.4-12.4); Monocytes % 10.4 %; Neutrophils # 15.6 K/mcL (1.6-8.9); Nucleated Red Blood Cells 0.1 /100 WBC (0); Platelet Count 472 K/mcL (140-400); Red Blood Count 4.44 M/mcL (4.19-5.50); Red Cell Distribution Width 18.3 % (11.5-14.5); Segmented Neutrophils % 82.5 %
--- NOTE | 2017-06-18 10:15 | Internal Med Progress Note ---
<Ceci Hope - Last Filed: 06/18/17 15:41> Date of Encounter: 06/18/17 Time of Encounter: 09:00 - Assessment and plan (1) Community acquired pneumonia Current Visit: Yes Status: Acute Assessment and plan: - 2-week history of worsening non-productive cough and shortness of breath prior to admission. - CXR on 06/14/17 found airspace opacities at the bilateral lung bases, left more than right, concerning of pneumonia. - Rapid influenza test negative. - Blood cultures NGTD. - Continue IV azithromycin (since 06/14/17) and IV ceftriaxone (since 06/14/17). Plan to have 7-day course of antibiotic treatment. 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 - Echo on 06/15/17 found LVEF 35-40% with moderate blotal and segmental LV systolic dysfunction and severe pulmonary hypertension. - Prior echo on 07/22/16 showed LVEF 45-50% with moderate LV diastolic dysfunction. - Cardiology plans to have [facility] once patient's respiratory status is stable. - Continue diuresis as recommended per cardiology. - Strict I/O and daily weight. Qualifiers: Congestive heart failure type: combined Congestive heart failure chronicity : acute on chronic Qualified Code(s): I50.43 - Acute on chronic combined systolic (congestive) and diastolic (congestive) heart failure (3) Acute exacerbation of chronic obstructive airways disease Current Visit: No Status: Chronic Assessment and plan: - Improves as patient's respiratory status remains stable. - Patient had received 5-day course of prednisone. Okay to discontinue. - Continue Symbicort, bronchodilators and supplemental oxygen. (4) Atrial fibrillation with rapid ventricular response Current Visit: Yes Status: Acute Assessment and plan: - Currently rate-controlled at rate of 100s. - Was on Cardizem drip but discontinued for hypotension. - Continue Lopressor 75 mg PO BID and Lovenox. (5) Hypokalemia Current Visit: Yes Status: Acute Assessment and plan: - K 3.3 today. - Likely related to diuresis with Lasix. - Given KCl 40 meq replacement x1. - Continue to monitor. (6) DVT prophylaxis Current Visit: No Status: Acute Assessment and plan: - Was on Xarelto at home but that has been held for the planned [facility]. - Continue Lovenox. - Subjective Interval history: Patient was seen and examined this morning. Patient reports breathing and cough slightly better compared to yesterday. Patient denies chest pain, palpitation, fever, chills. - Constitutional Vitals: Temp Pulse Resp BP Pulse Ox 97.9 F 112 20 117/86 97 06/18/17 06:59 06/18/17 09:57 06/18/17 09:57 06/18/17 07:14 06/18/17 09:57 General appearance: Present: A&O X 3, no acute distress, answers questions appropriately - Head Head exam: Present: normal inspection - Eye Eye exam: Present: EOMI, conjuntiva pink, sclera anicteric - Neck Neck exam general surgery: Present: normal inspection, supple, trachea midline - Respiratory Respiratory exam: Present: CTAB. Absent: accessory muscle use - Cardiovascular Cardiovascular exam: Present: RRR, +S1, +S2 - GI/Abdominal GI/Abdominal exam: Present: normal bowel sounds, soft, no peritoneal signs. Absent: tenderness - Extremities Exam Extremities exam: Present: pedal edema ([id number] BLE edema), warm. Absent: cyanotic - Neurological Exam Neurological exam: Present: alert. Absent: facial droop, speech deficit - Skin Skin exam: Present: dry, warm Internal Medicine: Result - Labs CBC & Chem 7: 06/18/17 09:35 06/18/17 09:35 Labs: Short CBC 06/17/17 06/18/17 Range/Units 08:52 09:35 WBC 17.8 H 18.9 H (4.3-11.1) K/mcL Hgb 9.4 L 9.5 L (12.9-16.9) g/dL Hct 31.9 L 31.4 L (37.5-50.1) % Plt Count 513 H 472 H (140-400) K/mcL Neutrophils # 13.8 H 15.6 H (1.6-8.9) K/mcL BMP 06/17/17 08:52 Sodium 132 L Potassium 3.5 Chloride 92 L Carbon Dioxide 30 H BUN 31 H Creatinine 1.32 H Glucose 130 H Calcium 9.1 - Impressions Impressions Chest X-Ray 06/17/17 12:27 IMPRESSION: Continued evidence of bibasilar airspace disease, decreased in density when compared to the previous exam. D/ / Hema Humphreys MD / Hema Humphreys MD Interpreting Provider: Hema Humphreys MD - VTE Documentation of Mechanical Device: Intermittent pneumatic compression device Consult Discharge Plan - Plan Referrals: Dane Justin MD [Primary Care Provider] - (Per Dr. Crow office the patient needs to call and make his own appointment) Tarun Munroe CNP [Advanced Practice Nurse] - (Office will call patient at home with follow up appointment) <James Nava - Last Filed: 06/18/17 19:03> Date of Encounter: 06/18/17 - Constitutional Vitals: Temp Pulse Resp BP Pulse Ox 98.3 F 94 20 96/67 99 06/18/17 15:54 06/18/17 17:22 06/18/17 17:22 06/18/17 15:54 06/18/17 17:22 Internal Medicine: Result - Labs CBC & Chem 7: 06/18/17 09:35 06/18/17 09:35 Labs: Short CBC 06/18/17 Range/Units 09:35 WBC 18.9 H (4.3-11.1) K/mcL Hgb 9.5 L (12.9-16.9) g/dL Hct 31.4 L (37.5-50.1) % Plt Count 472 H (140-400) K/mcL Neutrophils # 15.6 H (1.6-8.9) K/mcL BMP 06/18/17 09:35 Sodium 131 L Potassium 3.3 L Chloride 92 L Carbon Dioxide 31 H BUN 27 H Creatinine 1.07 Glucose 99 Calcium 8.7 - Impressions Impressions Chest X-Ray 06/17/17 12:27 IMPRESSION: Continued evidence of bibasilar airspace disease, decreased in density when compared to the previous exam. D/ / Hema Humphreys MD / Hema Humphreys MD Interpreting Provider: Hema Humphreys MD - Attending Attestation I examined this patient and my medical decision-making was reviewed with the Resident Physician Dr. Hope. I agree with the documented findings, disposition and treatment plan as described except to the extent set forth below. Mr. Yeung is a 82 year old male with a past medical history of MT and PCI in 2002, mild systolic dysfunction, atrial fibrillation on xarelto, COPD, and HTN who presents with the c/o SOB, cough, and orthopnea for two weeks. He is currently on Amiodarone gtt. Denied any CP . Still has some SOB and OCAMPO Gen: A, A, O x3 Chest : Mild crackles, rales + DBS B/l Hear: s1 s2 + Irregular Ext: 2+ edema a/p 1. Acute hypoxic resp failure 2. Acute pneumonia - bacterial cont empirical abx cont duoneb 3. Acute systolci CHF exacerbation on IV Lasix Cont close monitoring Possible LHC in AM 4. Acute Afib with RVR On Amiodarone gtt unable to give Cardizem due to systolic CHF.. d/c Cardizem If BP tolerates will use low dose B Machelle on Lovenox for anti coag
[2017-06-18 10:32] LABS: BUN/Creatinine Ratio 25 (6-26); Blood Urea Nitrogen 27 mg/dL (8-23); Calcium 8.7 mg/dL (8.6-10.3); Carbon Dioxide 31 mEq/L (23-29); Chloride 92 mEq/L (98-107); Glucose 99 mg/dL (70-105); Osmolality,Calculated 277 (280-300); Potassium 3.3 mEq/L (3.5-5.1); Sodium 131 mEq/L (136-145); eGFR For African Americans > 60 (> 60); eGFR For Non-African Americans > 60 (> 60)
--- NOTE | 2017-06-18 13:05 | Cardiology Progress Note ---
Date of Encounter: 06/18/17 Time of Encounter: 10:30 Assessment and Plan (1) Atrial fibrillation with rapid ventricular response Current Visit: Yes Status: Acute H/o PAF on xarelto. Presented with atrial fibrillation with RVR, likely due to acute respiratory distress. Cardizem discontinued due to hypotension and amio started yesterday. Continue IV amiodarone for now. HR 90-115. Discussed with Dr. Larsen, stop toprol XL d/t persistent hypotension. Hold xarelto for plan for LHC. On lovenox injections. (2) CHF (congestive heart failure) Current Visit: Yes Status: Acute H/o mild systolic dysfunction and moderate diastolic dysfunction. Presents with acute on chronic systolic and diastolic CHF. SOB multifactoral with possible PNA and COPD exacerbation. BNP 504. TTE shows EF reduced at 35-40% this admit. Recommend [facility] for further evaluation once breathing has improved. Continues to have significant orthopnea. TTE 07/2016 LVEF 45-50%. IV lasix decreased yesterday d/t HUGH. Now resolved. HUGH likely due to hypotension. Give lasix 40 mg BID. CXR showed improved bibasilar airspace disease. Continues to have positive fluid status depite IV diuresis. Currently +1245 ml. Lasix increased. 1500 ml fluid restriction. Strict I&O and daily weights. Stop toprol XL d/t hypotension. LHC when stable from respiratory standpoint. Continues to have fluid overload with orthopnea. Will continue to follow with you. Qualifiers: Congestive heart failure type: combined Congestive heart failure chronicity : acute on chronic Qualified Code(s): I50.43 - Acute on chronic combined systolic (congestive) and diastolic (congestive) heart failure (3) CAD (coronary artery disease) Current Visit: No Status: Acute H/o PCI in 2002 per patient. Last stress test 06/2016 negative for ischemia ( [facility] Continue asa, plavix, statin, and bb. Will consider LHC once stable from breathing standpoint to evaluate reduced EF. Qualifiers: Coronary Disease-Associated Artery/Lesion type: [place] artery [place] vs. transplanted heart: [place] heart Associated angina: without angina Qualified Code(s): I25.10 - Atherosclerotic heart disease of [place] coronary artery without angina pectoris Discussion w patient/family: The assessment and plan as outlined above was discussed with the patient and/or family members who expressed understanding and agreement. All questions were answered. Thank you for involving us in the care of your patient. Please call with any questions. Subjective Principal diagnosis: CHF, PNA, COPD, afib Interval history: Patient reports he is breathing better. Continues to have orthopnea. Sitting in the chair. Denies chest pain. Objective Vital Signs, Last 4 Hours Temp Pulse Resp BP Pulse Ox 06/18/17 11:41 97.7 F 104 20 93/65 98 06/18/17 11:29 17 98 06/18/17 10:55 98.1 F 95 17 93/65 98 06/18/17 09:57 112 20 97 General: Conversant, No Apparent Distress HEENT: Atraumatic, Normocephaly, Mucus Membranes Moist Neck: No JVD, Normal carotid pulses Cardiac: Other (Irregular) Lungs: Other (Respirations easy. Diminished lung sounds.) Neuro: Alert and responsive, No focal deficits noted Abdomen: Soft, Non-Tender Skin: No rashes noted on visualized skin Musculoskeletal: No Chest Wall Tenderness Extremities: No Clubbing, No Cyanosis, Normal Pulses, Other (2+ edema up to mid alvarez) Results 06/18/17 09:35 06/18/17 09:35 Lab Results 06/17/17 06/18/17 06/18/17 13:13 09:35 09:35 WBC 18.9 H Hgb 9.5 L Hct 31.4 L Plt Count 472 H Sodium 131 L Potassium 3.3 L Chloride 92 L Carbon Dioxide 31 H BUN 27 H Creatinine 1.07 Glucose 99 Calcium 8.7 B-Natriuretic Peptide 609 H - Imaging and Cardiology Echo: report reviewed - VTE Documentation of Mechanical Device: Intermittent pneumatic compression device Consult Discharge Plan - Plan Referrals: Dane Justin MD [Primary Care Provider] - (Per Dr. Crow office the patient needs to call and make his own appointment) Tarun Munroe CNP [Advanced Practice Nurse] - (Office will call patient at home with follow up appointment)
[2017-06-18] MEDS: Sennosides/Docusate Sodium TABLET PO PRN (17:05)
[2017-06-18] MEDS: cefTRIAXone 1,000 MG in Water for inj. (sterile) 10 ML IVP SCH (20:25)
[2017-06-18] MEDS: Furosemide 40 MG/4 ML VIAL IVP SCH (20:25)
[2017-06-19] MEDS: Ipratropium/Albuterol Neb 3 ML IH SCH ×5 (03:50→20:55)
[2017-06-19] MEDS: *HR* Enoxaparin 80 MG/0.8 ML SYRINGE SQ SCH (05:04)
[2017-06-19 07:22] LABS: Basophils % 0.1 %; Hemoglobin 9.1 g/dL (12.9-16.9); Immature Granulocytes % 0.9 % (0-4); Lymphocytes # 1.8 K/mcL (0.6-4.6); Lymphocytes % 12.3 %; Mean Corpuscular HGB Conc 29.4 g/dL (31.6-35.5); Mean Corpuscular Hemoglobin 20.9 pg (28.0-33.3); Mean Corpuscular Volume 71.3 fL (83.0-100.0); Mean Platelet Volume 10.1 fL (9.4-12.4); Monocytes # 1.8 K/mcL (0.0-1.3); Monocytes % 12.4 %; Neutrophils # 10.9 K/mcL (1.6-8.9); Platelet Count 444 K/mcL (140-400); Red Blood Count 4.35 M/mcL (4.19-5.50); Segmented Neutrophils % 74.3 %
[2017-06-19] MEDS: Budesonide/Formoterol 160/4.5 MDI IH SCH ×2 (08:16→20:55)
[2017-06-19] MEDS: Aspirin Enteric Coated 81 MG Tablet PO SCH (08:26)
[2017-06-19] MEDS: Furosemide 40 MG/4 ML VIAL IVP SCH ×2 (08:26→18:56)
[2017-06-19 09:34] LABS: BUN/Creatinine Ratio 25 (6-26); Blood Urea Nitrogen 27 mg/dL (8-23); Calcium 8.8 mg/dL (8.6-10.3); Carbon Dioxide 33 mEq/L (23-29); Chloride 96 mEq/L (98-107); Glucose 104 mg/dL (70-105); Magnesium 2.2 mg/dL (1.6-2.6); Osmolality,Calculated 285 (280-300); Potassium 3.9 mEq/L (3.5-5.1); Sodium 135 mEq/L (136-145); eGFR For African Americans > 60 (> 60); eGFR For Non-African Americans > 60 (> 60)
--- NOTE | 2017-06-19 09:56 | Internal Med Progress Note ---
<Ceci Hope - Last Filed: 06/19/17 10:49> Date of Encounter: 06/19/17 Time of Encounter: 08:45 - Assessment and plan (1) Community acquired pneumonia Current Visit: Yes Status: Acute Assessment and plan: - 2-week history of worsening non-productive cough and shortness of breath prior to admission. - CXR on 06/14/17 found airspace opacities at the bilateral lung bases, left more than right, concerning of pneumonia. - Rapid influenza test negative. - Blood cultures NGTD. - Continue IV azithromycin (since 06/14/17) and IV ceftriaxone (since 06/14/17). Plan to have last does tomorrow to finish 7-day course of antibiotic treatment. 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 - Echo on 06/15/17 found LVEF 35-40% with moderate blotal and segmental LV systolic dysfunction and severe pulmonary hypertension. - Prior echo on 07/22/16 showed LVEF 45-50% with moderate LV diastolic dysfunction. - Cardiology plans to have [facility] once patient's respiratory status is stable. - Continue diuresis as recommended per cardiology. - Strict I/O and daily weight. Net +290 mL since admission. Qualifiers: Congestive heart failure type: combined Congestive heart failure chronicity : acute on chronic Qualified Code(s): I50.43 - Acute on chronic combined systolic (congestive) and diastolic (congestive) heart failure (3) Acute exacerbation of chronic obstructive airways disease Current Visit: No Status: Chronic Assessment and plan: - Improves as patient's respiratory status remains stable. - Patient had received 5-day course of prednisone. - Continue Symbicort, bronchodilators and supplemental oxygen. (4) Atrial fibrillation with rapid ventricular response Current Visit: Yes Status: Acute Assessment and plan: - Currently rate-controlled at rate of 100s. - Was on Cardizem drip but discontinued for hypotension. - Continue Lopressor 75 mg PO BID and Lovenox. (5) Hypokalemia Current Visit: Yes Status: Acute Assessment and plan: - K 3.3 on 06/18/17. - Likely related to diuresis with Lasix. - Improves as K 3.9 today. - Continue to monitor. (6) DVT prophylaxis Current Visit: No Status: Acute Assessment and plan: - Was on Xarelto at home but that has been held for the planned [facility]. - Continue Lovenox. - Subjective Interval history: Patient was seen and examined this morning. Patient reports breathing and cough are about the same compared to yesterday but he was able to lay flat last night. Patient denies chest pain, palpitation, fever, chills, abdominal pain, nausea, vomiting, diarrhea. - Constitutional Vitals: Temp Pulse Resp BP Pulse Ox 97.6 F 118 16 111/95 97 06/19/17 06:49 06/19/17 06:49 06/19/17 08:16 06/19/17 06:49 06/19/17 08:16 General appearance: Present: A&O X 3, no acute distress, answers questions appropriately - Head Head exam: Present: normal inspection - Eye Eye exam: Present: EOMI, conjuntiva pink, sclera anicteric - Neck Neck exam general surgery: Present: normal inspection, supple, trachea midline - Respiratory Respiratory exam: Present: CTAB. Absent: accessory muscle use - Cardiovascular Cardiovascular exam: Present: irregular rhythm, tachycardia - GI/Abdominal GI/Abdominal exam: Present: normal bowel sounds, soft, no peritoneal signs. Absent: tenderness - Extremities Exam Extremities exam: Present: pedal edema (Moderate BLE edema, slightly improve compared to yesterday.), warm. Absent: cyanotic - Neurological Exam Neurological exam: Present: alert, oriented X3. Absent: facial droop, speech deficit - Skin Skin exam: Present: dry, warm Internal Medicine: Result - Labs CBC & Chem 7: 06/19/17 06:47 06/19/17 06:47 Labs: Short CBC 06/19/17 Range/Units 06:47 WBC 14.7 H (4.3-11.1) K/mcL Hgb 9.1 L (12.9-16.9) g/dL Hct 31.0 L (37.5-50.1) % Plt Count 444 H (140-400) K/mcL Neutrophils # 10.9 H (1.6-8.9) K/mcL BMP 06/18/17 06/19/17 09:35 06:47 Sodium 131 L 135 L Potassium 3.3 L 3.9 Chloride 92 L 96 L Carbon Dioxide 31 H 33 H BUN 27 H 27 H Creatinine 1.07 1.08 Glucose 99 104 Calcium 8.7 8.8 - VTE Documentation of Mechanical Device: Intermittent pneumatic compression device Consult Discharge Plan - Plan Referrals: Dane Justin MD [Primary Care Provider] - (Per Dr. Crow office the patient needs to call and make his own appointment) Tarun Munroe CNP [Advanced Practice Nurse] - (Office will call patient at home with follow up appointment) <James Nava - Last Filed: 06/19/17 16:35> Date of Encounter: 06/19/17 - Constitutional Vitals: Temp Pulse Resp BP Pulse Ox 97.9 F 102 16 101/67 99 06/19/17 16:13 06/19/17 16:13 06/19/17 16:13 06/19/17 16:13 06/19/17 16:13 Internal Medicine: Result - Labs CBC & Chem 7: 06/19/17 06:47 06/19/17 06:47 Labs: Short CBC 06/19/17 Range/Units 06:47 WBC 14.7 H (4.3-11.1) K/mcL Hgb 9.1 L (12.9-16.9) g/dL Hct 31.0 L (37.5-50.1) % Plt Count 444 H (140-400) K/mcL Neutrophils # 10.9 H (1.6-8.9) K/mcL BMP 06/19/17 06:47 Sodium 135 L Potassium 3.9 Chloride 96 L Carbon Dioxide 33 H BUN 27 H Creatinine 1.08 Glucose 104 Calcium 8.8 - Attending Attestation examined this patient and my medical decision-making was reviewed with the Resident Physician Dr. Hope. I agree with the documented findings, disposition and treatment plan as described except to the extent set forth below. Mr. Yeung is a 82 year old male with a past medical history of MO and PCI in 2002, mild systolic dysfunction, atrial fibrillation on xarelto, COPD, and HTN who presents with the c/o SOB, cough, and orthopnea for two weeks. He is currently on Amiodarone gtt. Denied any CP . Still has some SOB and OCAMPO Gen: A, A, O x3 Chest : Mild crackles, rales + DBS B/l Hear: s1 s2 + Irregular Ext: 2+ edema - Improving a/p 1. Acute hypoxic resp failure 2. Acute pneumonia - bacterial cont empirical abx Rocephin total 7 days course Finished 5 days Azithromycin cont duoneb 3. Acute systolci CHF exacerbation on IV Lasix Cont close monitoring Scheduled for [facility] today 4. Acute Afib with RVR On Amiodarone gtt unable to give Cardizem due to systolic CHF.. d/c Cardizem Since BP seems to be better today..will start low dose Metoprolol 12.5 mg on Lovenox for anti coag
--- NOTE | 2017-06-19 14:36 | Event Note ---
Date of Encounter: 06/19/17 Time of Encounter: 14:26 - Cardiology Event Note Mr. Yeung reports he is breathing better. He was layed flat to test if he could tolerate LHC. He layed flat for a few hours on 2L NC without difficulty. Net negative 355 fluid status. Slowly improving. Difficult to diurese due to hypotension. SOB is multifactoral in the setting of COPD, CHF, and PNA. Continue lasix. On amiodarone gtt for afib. Unable to tolerate BB due to hypotension. Discussed with Dr. Larsen, gonzalez amiodarone gtt. HR 90-115. Avg Hr over 12 hours was 104. On lovenox. Xarelto on hold. R/B/A of [facility] reviewed and he agrees to proceed.
--- NOTE | 2017-06-19 16:18 | Pre-Sedation Evaluation ---
Pre-sedation evaluation - Pre-sedation checklist Date of procedure: 06/19/17 Procedure: [facility] Recent Vitals: Last Vital Signs Temp 97.9 F 06/19/17 16:13 Pulse 102 06/19/17 16:13 Resp 16 06/19/17 16:13 BP 101/67 06/19/17 16:13 Pulse Ox 99 06/19/17 16:13 H&P (including ROS) documented in medical record: Yes Previous reaction to sedatives/anesthetics: No Dietary Status: NPO after Midnight Airway Assessment: Patient can open mouth completely, TMJ function normal Dentition: No loose teeth or bridges ASA Classification *see protocol: CLASS II-Mild systemic disease Plan of Care: Pt appropriate candidate for procedure/moderate/conscious sedation , Risks/benefits of procedure/sedation discussed w/ patient/family
[2017-06-19] MEDS ORDERED: Heparin 1,000 UNITS/500 mL 500 ML ONE (16:19)
[2017-06-19] MEDS ORDERED: 0.9 % Sodium Chloride 1,000 ML ONE ×2 (16:19→17:07)
[2017-06-19] MEDS ORDERED: *HR* Heparin 10,000 UNIT/10 ML VIAL ONE (16:19)
[2017-06-19] MEDS: *HR* LORazepam 0.5 MG TABLET PO PRN ×2 (16:27→22:34)
[2017-06-19] MEDS ORDERED: *HR* Midazolam HCl 2 MG/2 ML VIAL ONE (16:57)
[2017-06-19] MEDS ORDERED: *HR* FentaNYL (PF) 100 MCG/2 ML VIAL ONE (16:57)
[2017-06-19] MEDS ORDERED: Verapamil 5 MG/2 ML VIAL ONE (17:01)
[2017-06-19] MEDS ORDERED: Nitroglycerin 1,000 MCG/10 ML VIAL IV ONE (17:01)
[2017-06-19] MEDS ORDERED: TIROFIBAN IV ONE (17:49)
[2017-06-19] MEDS: cefTRIAXone 1,000 MG in Water for inj. (sterile) 10 ML IVP SCH (20:57)
[2017-06-19] MEDS: Amiodarone Premix 360 MG/200 ML BAG IVC SCH (21:57)
[2017-06-20] MEDS: Ipratropium/Albuterol Neb 3 ML IH SCH ×6 (00:26→20:12)
[2017-06-20 03:48] LABS: Basophils % 0.1 %; Eosinophils % 0.2 %; Hematocrit 29.9 % (37.5-50.1); Immature Granulocytes % 0.8 % (0-4); Lymphocytes # 1.7 K/mcL (0.6-4.6); Lymphocytes % 11.5 %; Mean Corpuscular HGB Conc 30.1 g/dL (31.6-35.5); Mean Corpuscular Hemoglobin 21.4 pg (28.0-33.3); Mean Platelet Volume 9.6 fL (9.4-12.4); Monocytes # 1.7 K/mcL (0.0-1.3); Monocytes % 11.6 %; Neutrophils # 10.9 K/mcL (1.6-8.9); Platelet Count 414 K/mcL (140-400); Red Blood Count 4.21 M/mcL (4.19-5.50); Red Cell Distribution Width 18.1 % (11.5-14.5); Segmented Neutrophils % 75.8 %
[2017-06-20 04:02] LABS: BUN/Creatinine Ratio 22 (6-26); Blood Urea Nitrogen 22 mg/dL (8-23); Calcium 8.1 mg/dL (8.6-10.3); Carbon Dioxide 33 mEq/L (23-29); Chloride 95 mEq/L (98-107); Glucose 80 mg/dL (70-105); Osmolality,Calculated 280 (280-300); Potassium 3.3 mEq/L (3.5-5.1); Sodium 134 mEq/L (136-145); eGFR For African Americans > 60 (> 60); eGFR For Non-African Americans > 60 (> 60)
[2017-06-20] MEDS: *HR* Enoxaparin 80 MG/0.8 ML SYRINGE SQ SCH (06:46)
[2017-06-20] MEDS: Aspirin Enteric Coated 81 MG Tablet PO SCH (07:35)
[2017-06-20] MEDS: Furosemide 40 MG/4 ML VIAL IVP SCH ×2 (07:36→16:15)
[2017-06-20] MEDS: Budesonide/Formoterol 160/4.5 MDI IH SCH ×2 (08:00→20:12)
--- NOTE | 2017-06-20 08:02 | Invasive Diagnostic Lab Proc ---
Name: Hua Yeung Date of Study: 06/19/2017 Date: 1935 Ht: 66.1in Medical Record#: [id number] Age: 82 Wt: 152.12lb Gender: Male BSA: 1.78 Order #: [id number] BMI: 24.45 Physicians Procedure Physician: Yovany Collado MD, [facility] Referring MD: Referring MD: Staff Name Position Time In Sapphire Rg RT (R) Scrub 04:58 PM Scar Moisés RT (R) Monitor 04:58 PM Edwar Beal RN Senior Biostatistician/Group Leader 04:58 PM Yuni Sherman RN Monitor 05:15 PM Jamila Berman RN Senior Biostatistician/Group Leader 05:15 PM Indications Indication Unstable Angina Procedures Performed Procedure L HRT ARTERY/VENTRICLE ANGIO PRQ CARD JATINDER STENT W/ANGIO 1 VSL IV Doppler BLD Flow 1st Vessel Pre-Procedure Checklist Informed consent is complete signed and on chart. H&P is on chart. ID band is on and ID verified with patient. Patient NPO for procedure The procedure was described for the patient and questions were answered. Blood Pressure: 125/85 ECG is on chart. Rhythm: Atrial Fibrillation Plan of Care Patient will tolerate the procedure without complications. Adequate level of comfort will be maintained. Hemodynamics will remain stable Patient will recover from procedure without complications. Respiratory function will be maintained. Cardiac rhythm will remain stable. Patient temperature will be maintained. Patient and/or family have verbalized understanding of the procedure. Patient Education Chief Complaint/Reason for Test: Cardiac Cath Developmental Category: Geriatric (65+ years) Developmentally Appropriate for Age: Yes Learning Barriers: None Education Needs: Procedure Education Method: Verbal Information Taught: Cardiac Cath Educational Evaluation: Able to repeat information Intravenous Access Time IV Size Location DC'd Fluid/Drip Rate Units RN 04:58 PM 20g 1 1/" Patent On Arrival Lt Arm 0.9NaCl 25 ml/hr Edwar Beal RN Amiodarone 16.7 ml/hr Edwar Beal RN Allergies No Known Allergies NKA Vital Signs Time BP (mmHg) HR (bpm) O2 Sat. RR (bpm) LOC 04:58 PM 125 / 85 97 100 % 18 5 = Fully awake and oriented or at pre-proc level 04:58 PM / % 4 = Oriented but drowsy 05:17 PM / % 5 = Fully awake and oriented or at pre-proc level 05:17 PM / % 4 = Oriented but drowsy 05:32 PM / % 4 = Oriented but drowsy 05:03 PM 125 / 85 116 91 % 05:08 PM 138 / 79 104 98 % 25 05:13 PM 107 / 67 91 96 % 19 05:18 PM 111 / 63 94 96 % 13 05:22 PM 100 / 57 90 95 % 19 05:28 PM 94 / 61 97 96 % 17 05:32 PM 98 / 62 103 97 % 18 05:38 PM 90 / 58 98 97 % 21 05:42 PM 105 / 54 75 96 % 18 05:46 PM 92 / 63 90 96 % 26 05:48 PM 109 / 65 87 98 % 16 05:53 PM 111 / 71 89 98 % 16 05:58 PM 110 / 74 88 97 % 17 05:48 PM / % 4 = Oriented but drowsy Procedural Medications Time Medication Dose Units Method Given By 04:59 PM Oxygen 2 L/min nasal cannula Edwar Beal RN 05:10 PM Versed 2 mg Intravenous Edwar Beal RN 05:10 PM Fentanyl 50 mcg Intravenous Edwar Beal RN 05:19 PM Lidocaine 2% 0.5 ml Subcutaneous Yovany Collado MD, FACC 05:20 PM Heparin 4000 units Nitroglycerin 200 mcg Verapamil 2.5 mg Intraarterial Yovany Collado MD, FACC 05:34 PM Adenosine 588 ml/hr Intravenous Jamila Berman 05:45 PM 0.9NaCl 999 ml/hr Intravenous Jamila Berman RN 05:47 PM Heparin 2000 units Intravenous Jamila Berman RN 06:00 PM Plavix 300 mg Orally Jamila Berman RN ASA Classification: CLASS III- Severe systemic disease (i.e. prior AMI, diabetes with vascular complications, morbid obesity) Darío Score Preprocedure Postprocedure Activity 2- Moves 4 extremities sustained head lift Activity 2- Moves 4 extremities sustained head lift Circulation 2- SBP +/= 20 points of pre-anesthetic level Circulation 2- SBP +/= 20 points of pre-anesthetic level Consciousness 2- Awake and alert oriented x 3 Consciousness 2- Awake and alert oriented x 3 O2 Saturation 2- Able to maintain O2 satruation of 92% on room air O2 Saturation 2- Able to maintain O2 satruation of 92% on room air Respiratory 2- Able to deep breathe and cough well Respiratory 2- Able to deep breathe and cough well Total Score 10 Total Score 10 Contrast Agent: Isovue Diagnostic Contrast: 171 ml Total Contrast: 171 ml Fluoro Dose: 428 mGy Activated Clotting Time Time Seconds to Clot 05:34 PM 400 05:47 PM 223 Procedure Log Time Note Enter By 04:57 PM CathStat 04:57 PM Pt arrived to record label internship 2 at 16:57 [email or web address] 04:57 PM Patient charges- Angio tray pack, Navilyst 3mm J, Pulse Oximetry and ACIST tubing and transducer [email or web address] 04:57 PM Physician arrived 16:57 [email or web address] 04:57 PM ASA Class CLASS III- Mild systemic disease (i.e. well-controlled diabetes, hypertension, asthma, cigarette smoking) [email or web address] 04:57 PM Meet and greet completed :57 PM Sign in performed according to hospital policy. [email or web address] 04:57 PM Procedure start 16:57 2 04:58 PM Sapphire Rg RT (R) Position: Scrub Time in: 16:58 2 04:58 PM Moisés Abbott RT (R) Position: Monitor Time in: 16:58 2 04:58 PM Edwar Beal RN Position: Senior Biostatistician/Group Leader Time in: 16:58 2 04:58 PM Time: 16:58 Patient comfortable and pain free: Yes [email or web address] 04:58 PM Time: 16:58LOC: 5 = Fully awake and oriented or at pre-proc level [email or web address] 04:59 PM Case Delayed No [email or web address] 04:59 PM Hair removed from procedure site in procedure lab using clippers. Right wrist prepped with Chloraprep by Sapphire Rg RT (R), safety strap applied then patient was draped. Skin intact. [email or web address] 04:59 PM Hair removed from procedure site in procedure lab using clippers. Right groin prepped with Chloraprep by Sapphire Rg (R), safety strap applied then patient was draped. Skin intact. 2 04:59 PM Time: 16:59 Oxygen on at 2 L/min per nasal cannula by Edwar Beal RN [email or web address] 05:02 PM Vitals capture started with the following parameters, Patient=Adult, Interval=5 min, Initial Jowxemoi=611 mmHg, Deflation Rate=5 mmHg, Cuff placed on Left Arm 05:03 PM LC=428 bpm, HZDA=299/85 mmhg, SpO2=91.0 % 05:03 PM Recorded ECG: FB=933 Condition=Condition 1 05:05 PM Clinical Presentation: Unstable angina 05:08 PM WP=778 bpm, DIDW=997/79 mmhg, SpO2=98.0 %, Resp=25 B/min 05:10 PM Time: 17:10 Versed 2 mg Intravenous Given by Edwar Beal RN ilson 05:10 PM Time: 17:10 Fentanyl 50 mcg Intravenous Given by Edwar Beal RN ilson 05:13 PM HR=91 bpm, ZRND=628/67 mmhg, SpO2=96.0 %, Resp=19 B/min 05:13 PM Time: 16:58 Patient comfortable and pain free: Yes 05:13 PM Time: 16:58LOC: 4 = Oriented but drowsy 05:15 PM Yuni Sherman RN Position: Monitor Time in: 17:15 to relieve Moisés Abbott (R) mary 05:15 PM Jamila Berman RN Position: Senior Biostatistician/Group Leader Time in: 17:15 to relieve Edwar Beal (RN) [email or web address] 05:16 PM Pressure channel 1 zeroed. 05:17 PM Time: 17:17 Patient comfortable and pain free: Yes mm 05:17 PM Time: 17:17LOC: 5 = Fully awake and oriented or at pre-proc level tsmm 05:18 PM HR=94 bpm, BUZO=824/63 mmhg, SpO2=96.0 %, Resp=13 B/min, Comment=Afib 05:18 PM Clinical Presentation: Unstable angina 05:18 PM Time out performed according to hospital policy 05:19 PM Pressure channel 1 zeroed. 05:20 PM Time: 17:19 0.5 ml Lidocaine 2% to right radial Subcutaneous Given by Yovany Collado MD, [facility] jerry 05:20 PM Access obtained by percutaneous puncture. 5Fr 10cm Terumo Glidesheath sheath placed in right Radial artery. [id number] fredy 05:20 PM Time: 17:20 Patient given 4,000 units Heparin, 200 mcg Nitroglycerin, and 2.5 mg Verapamil Intraarterial by Yovany Collado MD, [facility]. This is given to reduce risk of vessel spasm and thrombosis. tsoumm 05:20 PM 5Fr TIG catheter inserted over the wire [facility] mm 05:21 PM 0.035 260cm Navilyst 3mmJ wire [id number] tsoumm 05:21 PM j wire removed tsmm 05:21 PM RCA angiography performed in multiple views. tsoumm 05:22 PM Recorded Pressure: Ao, VH=667, Condition=Condition 1 (Aorta) Ao 87/57/69 05:22 PM HR=90 bpm, WHUZ=978/57 mmhg, SpO2=95.0 %, Resp=19 B/min, Comment=Afib 05:23 PM LCA angiography performed in multiple views. tsoumm 05:23 PM Recorded Pressure: Ao, LR=951, Condition=Condition 1 (Aorta) Ao 85/60/72 05:26 PM Catheter removed 05:26 PM 5Fr Pigtail catheter inserted over the wire [facility] 05:27 PM Catheter selectively placed in left ventricle tsmm 05:27 PM Recorded Pressure: LV, HR=98, Condition=Condition 1 (Left Ventricle) LV 102/9/21 05:28 PM Recorded Pressure: LV, HR=94, Condition=Condition 1 (Left Ventricle) LV 105/11/20 05:28 PM HR=97 bpm, NIBP=94/61 mmhg, SpO2=96.0 %, Resp=17 B/min 05:28 PM Recorded Pressure: LV, Ao, LZ=853, Condition=Condition 1 (Left Ventricle) LV 95/14/22, (Aorta) Ao 105/66/83 05:29 PM Bolus angiogram of left Ventricle complete: 10 ml/sec for a total of 20 mls oumm 05:30 PM Catheter removed 05:30 PM 6Fr CLS 3.0 Runway guide catheter was used to cannulate the PCI vessel successfully. reused? No tsoummers 05:31 PM .014 [place] 190cm guide wire across target lesion- successful. reused? No tsoummers 05:31 PM Coronary Dominance: right tsoummers 05:32 PM Lesion found in 1st Marginal. Pre Stenosis: 100 Pre KASH Flow: 0: No Flow/No perfusion [email or web address] 05:32 PM Lesion found in 2nd Marginal. Pre Stenosis: 70 Pre KASH Flow: tsoummers 05:32 PM Circumflex, Obtuse Marginal, Left Posterior Descending, and Left Posterolateral Coronary Arteries with 100 % stenosis. oummers 05:32 PM Time: 17:17LOC: 4 = Oriented but drowsy tsoummers 05:32 PM Time: 17:17 Patient comfortable and pain free: Yes tsoummers 05:32 PM SA=806 bpm, NIBP=98/62 mmhg, SpO2=97.0 %, Resp=18 B/min, Comment=Afib 05:33 PM Asist FFR Catheter advanced to target lesion. tsoummers 05:33 PM Recorded Pressure: Ao, HR=94, Condition=Condition 1 (Aorta) Ao 97/64/77 05:34 PM At 17:34 the ACT was >400 seconds. oumm 05:35 PM Time: 17:34 Adenosine 588 ml/hr administered Intravenous by Jamila Berman fredy 05:37 PM adenosine off tsoummers 05:38 PM HR=98 bpm, NIBP=90/58 mmhg, SpO2=97.0 %, Resp=21 B/min, Comment=Afib 05:40 PM Lesion found in Proximal LAD. Pre Stenosis: 70 Pre KASH Flow: 3: tsoummers 05:40 PM Proximal Left Anterior Descending Coronary Artery with 70% stenosis. If graft is supplying this territory, 0 % stenosis. tsoummers 05:40 PM Lesion found in Mid LAD. Pre Stenosis: 50 Pre KASH Flow: tsoummers 05:42 PM HR=75 bpm, SROQ=263/54 mmhg, SpO2=96.0 %, Resp=18 B/min, Comment=Afib 05:44 PM Flow Wire/Catheter removed intact oumm 05:44 PM 2.5 mm x 12 mm Emerge Monorail balloon across target lesion- successful. reused? No mm 05:45 PM Balloon inflated @ 14 gertrudis for 35 seconds tsoumm 05:45 PM NIBP STAT measurement started. 05:45 PM Balloon catheter removed intact. oumm 05:46 PM Time: 17:45 0.9NaCl 999 ml/hr Intravenous Given by Jamila Berman RN mm 05:46 PM HR=90 bpm, NIBP=92/63 mmhg, SpO2=96.0 %, Resp=26 B/min, Comment=Afib 05:47 PM 3.0mm x 16mm Synergy drug-eluting stent across target lesion- successful Lot #[id number] oumm 05:47 PM At 17:47 the ACT was 223 seconds. tsoumm 05:47 PM Time: 17:47 Heparin 2000 units Intravenous Given by Jamila Berman RN oumm 05:47 PM .014 [place] 180cm guide wire across target lesion- successful. reused? No oummers 05:47 PM Time: 17:32 Patient comfortable and pain free: Yes oumm 05:48 PM Time: 17:32LOC: 4 = Oriented but drowsy tsoummers 05:48 PM Recorded Pressure: Ao, HR=90, Condition=Condition 1 (Aorta) Ao 92/53/68 05:48 PM HR=87 bpm, CEHR=097/65 mmhg, SpO2=98.0 %, Resp=16 B/min, Comment=Afib 05:50 PM Stent deployed @ 16 gertrudis for 34 seconds tsoumm 05:51 PM Guide wire Prowater removed intact. tsmm 05:52 PM Stent delivery system removed intact. tsmm 05:52 PM 3.5 mm x 8mm NC Trek Rx balloon across target lesion- successful. reused? No oummers 05:53 PM HR=89 bpm, YGPX=261/71 mmhg, SpO2=98.0 %, Resp=16 B/min, Comment=Afib 05:54 PM Balloon inflated @ 18 gertrudis for 20 seconds tsoumm 05:55 PM Recorded Pressure: Ao, HR=80, Condition=Condition 1 (Aorta) Ao 96/66/79 05:56 PM Balloon catheter removed intact. tsmm 05:56 PM Guide wire removed intact. tsoumm 05:56 PM Guide catheter removed intact. mm 05:57 PM [email or web address] PM Sign out completed: Radiation Dose 427.7 mGy Fluoro Time: 8.8 Isovue 370 - 200ml contrast 171 ml given by Yovany Collado MD, FACC. Complications: NoneCardiac Rehab Consult needed: YesConfirmed administered medications: Yes 05:58 PM HR=88 bpm, INMN=267/74 mmhg, SpO2=97.0 %, Resp=17 B/min, Comment=Afib 05:58 PM Arterial sheath pulled, Vasc Band closure device used and was Successful S/N. 05:58 PM 9 ml air in Vasc Band. 05:58 PM Estimated Blood Loss: minimal mm 05:59 PM Post ECG Atrial Fibrillation mm 05:59 PM Post Blood Pressure 110/74 mm 05:59 PM 17:59 Post Pulses Rt Radial 1+ 06:00 PM Information taught Cardiac Cath and PCI 06:00 PM Education needs Procedure, Plan of Care, and Responsibilities of Patient in Care 06:00 PM Learning barriers :None 06:00 PM Education Methods Verbal 06:00 PM Education evaluation Able to repeat information 06:00 PM Site status No bleeding/hematoma - Rt Wrist as reported by Olimpia Mccormick RT (R) at 18:00 [facility] 06:00 PM Plavix, Effient or Brilinta given Yes 06:00 PM Delay to floor No mm 06:00 PM Complications: None 06:00 PM Fluoro Time: 8.8 06:00 PM Isovue 370 - 200ml contrast 171 ml given by Yovany Collado MD, [facility]. 06:00 PM Radiation Dose 427.7 mGy 06:01 PM Time: 18:00 Plavix 300 mg Orally Given by Jamila Berman RN 06:02 PM Lesion found in Proximal RCA. Pre Stenosis: 20 Pre KASH Flow: 06:02 PM Lesion found in Mid RCA. Pre Stenosis: 30 Pre KASH Flow: 06:02 PM Right Coronary, Right Posterior Descending Arteries with Right Posterolateral and Acute Marginal branches with 30 % stenosis. 06:03 PM Time: 17:47 Patient comfortable and pain free: Yes 06:03 PM Time: 17:48LOC: 4 = Oriented but drowsy [email or web address] 06:07 PM FFR Measurement: 0.8 [email or web address] 06:07 PM FFR Measurement: 0.75 salome 06:14 PM Report given to Francesca SMITH Pt taken to Room #15. 18:14 salome 06:14 PM Patient out of room: 18:14 salome Complications Complication None Hemodynamics Pressures Site Systolic/A Wave Diastolic/V Wave Mean AO 87 57 69 AO 85 60 72 LV 102 9 21 LV 105 11 20 LV 95 14 22 AO 105 66 83 AO 97 64 77 AO 92 53 68 AO 96 66 79 Post Procedure Information Blood Pressure: 110/74 mmHg Rhythm: Atrial Fibrillation Post procedural instructions were given Closure Device Time Device Success/Fail 06/19/2017 5:57:00 PM Mechanical Compression Successful Site Checks Time Location Status Staff Sheath In? Note 06:00 PM Rt Wrist No bleeding/hematoma Olimpia Mccormick RT (R) Pulses Time Site Pre-Procedure Post-Procedure Note 06/19/2017 2:40:00 PM Bilateral radial 2+ 06/19/2017 2:40:00 PM Bilateral DP 2+ 06/19/2017 2:40:00 PM Bilateral PT 1+ 5:59:00 PM Rt Radial 1+ Updated by Yuni Sherman RN on 06/19/2017 6:15:49 PM electronically signed on 06/19/2017 6:17:27 PM with status of Final
--- NOTE | 2017-06-20 09:03 | Internal Med Progress Note ---
<Ceci Hope - Last Filed: 06/20/17 10:08> Date of Encounter: 06/20/17 Time of Encounter: 08:00 - Assessment and plan (1) Community acquired pneumonia Current Visit: Yes Status: Acute Assessment and plan: - 2-week history of worsening non-productive cough and shortness of breath prior to admission. - CXR on 06/14/17 found airspace opacities at the bilateral lung bases, left more than right, concerning of pneumonia. - Rapid influenza test negative. - Blood cultures NGTD. - Continue IV azithromycin (since 06/14/17) and IV ceftriaxone (since 06/14/17). Plan to have last doses tonight to finish 7-day course of antibiotic treatment. - Tessalon prn cough. 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 - Echo on 06/15/17 found LVEF 35-40% with moderate blotal and segmental LV systolic dysfunction and severe pulmonary hypertension. - Prior echo on 07/22/16 showed LVEF 45-50% with moderate LV diastolic dysfunction. - LHC on 06/19/17 found severe one vessel CAD with severe LV dysfunction EF 15% and primarily nonischemic cardiomyopathy. A JATINDER placed in the proximal LAD. - Continue diuresis as recommended per cardiology. - Strict I/O and daily weight. Net -435 mL since admission. Qualifiers: Congestive heart failure type: combined Congestive heart failure chronicity : acute on chronic Qualified Code(s): I50.43 - Acute on chronic combined systolic (congestive) and diastolic (congestive) heart failure (3) CAD (coronary artery disease) Current Visit: No Status: Acute Assessment and plan: - LHC on 06/19/17 found severe one vessel CAD with severe LV dysfunction EF 15% and primarily nonischemic cardiomyopathy. A JATINDER placed in the proximal LAD. - Continue aspirin, Plavix, metoprolol and Lipitor. Qualifiers: Coronary Disease-Associated Artery/Lesion type: [place] artery [place] vs. transplanted heart: [place] heart Associated angina: without angina Qualified Code(s): I25.10 - Atherosclerotic heart disease of [place] coronary artery without angina pectoris (4) Atrial fibrillation with rapid ventricular response Current Visit: Yes Status: Acute Assessment and plan: - Currently rate-controlled at rate of 80s. - Was on Cardizem drip but discontinued for hypotension. Currently on Amiodarone drip. - Continue Lopressor 75 mg PO BID and Lovenox. - Appreciate cardiology input, especially for the conversion of Amiodarone from drip to PO. (5) Acute exacerbation of chronic obstructive airways disease Current Visit: No Status: Chronic Assessment and plan: - Improves as patient's respiratory status remains stable. - Patient had received 5-day course of prednisone. - Continue Symbicort, bronchodilators and supplemental oxygen. (6) Hypokalemia Current Visit: Yes Status: Acute Assessment and plan: - K 3.3 on 06/18/17. - Likely related to diuresis with Lasix. - K 3.3 again today. - Replace with one dose of KCl 40 meq PO. - Continue to monitor. (7) DVT prophylaxis Current Visit: No Status: Acute Assessment and plan: - On Xarelto at home but that was been held for the planned [facility]. - Currently on Lovenox. - Subjective Interval history: Patient was seen and examined this morning. Patient reports breathing and cough are up and down but overall about the same compared to yesterday. Patient denies chest pain, palpitation, fever, chills, abdominal pain, nausea, vomiting , diarrhea. - Constitutional Vitals: Temp Pulse Resp BP Pulse Ox 97.9 F 85 16 112/99 96 06/20/17 06:09 06/20/17 07:43 06/20/17 08:02 06/20/17 07:43 06/20/17 08:02 General appearance: Present: A&O X 3, no acute distress, answers questions appropriately - Head Head exam: Present: normal inspection - Eye Eye exam: Present: EOMI, conjuntiva pink, sclera anicteric - Neck Neck exam general surgery: Present: normal inspection, supple, trachea midline - Respiratory Respiratory exam: Present: wheezes (few). Absent: accessory muscle use - Cardiovascular Cardiovascular exam: Present: RRR, +S1, +S2 - GI/Abdominal GI/Abdominal exam: Present: normal bowel sounds, soft, no peritoneal signs. Absent: tenderness - Extremities Exam Extremities exam: Present: pedal edema (Moderate BLE edema, slightly improve compared to yesterday), warm. Absent: cyanotic - Neurological Exam Neurological exam: Present: alert. Absent: facial droop, speech deficit - Skin Skin exam: Present: dry, warm Internal Medicine: Result - Labs CBC & Chem 7: 06/20/17 03:37 06/20/17 03:37 Labs: Short CBC 06/20/17 Range/Units 03:37 WBC 14.4 H (4.3-11.1) K/mcL Hgb 9.0 L (12.9-16.9) g/dL Hct 29.9 L (37.5-50.1) % Plt Count 414 H (140-400) K/mcL Neutrophils # 10.9 H (1.6-8.9) K/mcL BMP 06/19/17 06/20/17 06:47 03:37 Sodium 135 L 134 L Potassium 3.9 3.3 L Chloride 96 L 95 L Carbon Dioxide 33 H 33 H BUN 27 H 22 Creatinine 1.08 1.01 Glucose 104 80 Calcium 8.8 8.1 L - VTE Documentation of Mechanical Device: Graduated compression elastic hosiery Consult Discharge Plan - Plan Referrals: Dane Justin MD [Primary Care Provider] - (Per [facility] office the patient needs to call and make his own appointment) Tarun Munroe CNP [Advanced Practice Nurse] - (Office will call patient at home with follow up appointment) <James Nava - Last Filed: 06/20/17 17:12> Date of Encounter: 06/20/17 - Constitutional Vitals: Temp Pulse Resp BP Pulse Ox 97.5 F L 94 16 113/64 94 06/20/17 16:55 06/20/17 16:55 06/20/17 16:55 06/20/17 16:55 06/20/17 16:55 Internal Medicine: Result - Labs CBC & Chem 7: 06/20/17 03:37 06/20/17 03:37 Labs: Short CBC 06/20/17 Range/Units 03:37 WBC 14.4 H (4.3-11.1) K/mcL Hgb 9.0 L (12.9-16.9) g/dL Hct 29.9 L (37.5-50.1) % Plt Count 414 H (140-400) K/mcL Neutrophils # 10.9 H (1.6-8.9) K/mcL BMP 06/20/17 03:37 Sodium 134 L Potassium 3.3 L Chloride 95 L Carbon Dioxide 33 H BUN 22 Creatinine 1.01 Glucose 80 Calcium 8.1 L - Attending Attestation I examined this patient and my medical decision-making was reviewed with the Resident Physician Dr. Hope. I agree with the documented findings, disposition and treatment plan as described except to the extent set forth below. Mr. Yeung is a 82 year old male with a past medical history of TX and PCI in 2002, mild systolic dysfunction, atrial fibrillation on xarelto, COPD, and HTN who presents with the c/o SOB, cough, and orthopnea for two weeks. Pt stated he is feeling little better today. Still on 2.5 lit O2. Gen: A, A, O x3 Chest : Mild crackles, rales + DBS B/l Hear: s1 s2 + Irregular Ext: 2+ edema - Improving a/p 1. Acute hypoxic resp failure 2. Acute pneumonia - bacterial cont empirical abx Rocephin total 7 days course Finished 5 days Azithromycin cont duoneb 3. Acute systolci CHF exacerbation Con IV Lasix Cont close monitoring 4. CAD s/p PCI Had LHC showed severe one vessel CAD,with JATINDER placed in the proximal LAD cont ASA + Plavix 5. Acute Afib with RVR Improved rate controlled switched to PO Amiodarone today resumed Xarelto for anti coag 6. Physical deconditioning PT / OT eval Need ECF placement
[2017-06-20] MEDS: *HR* Amiodarone 200 MG TABLET PO SCH ×2 (10:51→20:22)
--- NOTE | 2017-06-20 10:54 | Cardiology Progress Note ---
Date of Encounter: 06/20/17 Time of Encounter: 08:30 Assessment and Plan (1) Atrial fibrillation with rapid ventricular response Current Visit: Yes Status: Acute Per cardiology: -H/o PAF on xarelto in outpatient setting. Presented with atrial fibrillation with RVR, likely due to acute respiratory distress. -Of note, patient was on xarelto 10mg for history of DVT. -On amiodarone drip at 0.5mg/min. -Currently SR, average HR 86. Short intermittent periods of PAF. -Currently on lovenox injections. -Per discussion with , will start amiodarone 200mg BID for one week, then 200mg daily. -Per discussion with will discontinue lovenox and re-start xarelto at 20mg dose for atrial fibrillation. (2) CHF exacerbation Current Visit: Yes Status: Acute Per cardiology: -H/o mild systolic dysfunction and moderate diastolic dysfunction. Presents with acute on chronic systolic and diastolic CHF. SOB multifactoral with possible PNA and COPD exacerbation. -BNP 504. -TTE shows EF reduced at 35-40% this admit. Recommend [facility] for further evaluation once breathing has improved. Continues to have significant orthopnea. -TTE 07/2016 LVEF 45-50%. -On lasix 40mg IV BID. Currently net negative fluid balance of 300ml. -States breathing ok today. On NC at 3LPM, states wears 2.5LPM at home at all times. -Peripheral edema noted. -1500 ml fluid restriction. -Strict I&O and daily weights. -Currently not on arianne inhibitor or beta risa due to hypotension. Consider adding once BP will tolerate. -Will continue to monitor. Qualifiers: Congestive heart failure type: systolic Qualified Code(s): I50.23 - Acute on chronic systolic (congestive) heart failure (3) CAD (coronary artery disease) Current Visit: No Status: Chronic Per cardiology: -H/o PCI in 2002 per patient. Last stress test 06/2016 negative for ischemia ( [facility]). -S/p LHC yesterday with JATINDER to LAD. -ON asa, plavix, statin. Not on beta risa due to hypotension. -Educated on importance of dual anti-platelet therapy uninterrupted for at least one year. Of note, patient is on triple therapy with asa, plavix, xarelto. Consider discontinuation of asa after one week. -Right radial access site without hematoma or ecchymosis. -Right radial access site management education given to patient. -Denies chest pain. -Will continue to monitor. Qualifiers: Coronary Disease-Associated Artery/Lesion type: [place] artery [place] vs. transplanted heart: [place] heart Associated angina: without angina Qualified Code(s): I25.10 - Atherosclerotic heart disease of [place] coronary artery without angina pectoris Discussion w patient/family: The assessment and plan as outlined above was discussed with the patient who expressed understanding and agreement. All questions were answered. Thank you for involving us in the care of your patient. Please call with any questions. Discussed and reviewed with . Subjective Principal diagnosis: CHF, PNA, COPD, afib Interval history: Patient states he feels better today. Denies chest pain. Denies issues using right wrist. States breathing is "ok" today. States he feels that peripheral edema is not different than when he was admitted. Objective Vital Signs, Last 4 Hours Pulse Resp BP Pulse Ox 06/20/17 09:02 95 18 108/60 06/20/17 08:02 16 96 06/20/17 07:43 85 18 112/99 General: Conversant, No Apparent Distress HEENT: Atraumatic, Normocephaly, Mucus Membranes Moist Neck: No JVD, Normal carotid pulses Cardiac: Reg Rate and Rhythm, Normal S1 and S2, No Murmur Lungs: Normal Breath Sounds, No Wheeze, Rales, Rhonchi Neuro: Alert and responsive, No focal deficits noted Abdomen: Soft, Non-Tender Skin: No rashes noted on visualized skin, Other (Right radial access site without hematoma or ecchymosis. ) Musculoskeletal: No Chest Wall Tenderness Extremities: No Clubbing, No Cyanosis, Normal Pulses, Other (2+ bialteral lower extremity pitting edema noted. ) Results 06/20/17 03:37 06/20/17 03:37 Lab Results Active Medications Acetaminophen (Tylenol) 650 mg PO Q6HR PRN PRN Reason: Mild Pain (1-3) Stop: 12/14/17 22:53 Albuterol Sulfate (Proventil Neb) 2.5 mg IH Q2H PRN PRN Reason: Shortness Of Breath/Wheezing Stop: 12/14/17 23:00 Last Admin: 06/16/17 22:38 Dose: 2.5 mg Albuterol/Ipratropium (Duoneb) 3 ml IH [id number] KOKI Stop: 12/16/17 00:01 Last Admin: 06/20/17 08:00 Dose: 3 ml Amiodarone HCl (Cordarone) 200 mg PO BID KOKI Stop: 12/20/17 10:16 Last Admin: 06/20/17 10:51 Dose: 200 mg Aspirin (Aspirin Ec) 81 mg PO DAILY KOKI Stop: 12/15/17 09:01 Last Admin: 06/20/17 07:35 Dose: 81 mg Atorvastatin Calcium (Lipitor) 40 mg PO HS KOKI Stop: 12/15/17 21:01 Last Admin: 06/19/17 20:58 Dose: 40 mg Benzonatate (Tessalon) 100 mg PO TID PRN PRN Reason: Cough Stop: 12/14/17 22:57 Last Admin: 06/18/17 05:24 Dose: 100 mg Budesonide/Formoterol Fumarate (Symbicort) 2 puff IH BIDR KOKI Stop: 12/15/17 10:01 Last Admin: 06/20/17 08:00 Dose: 2 puff Clopidogrel Bisulfate (Plavix) 75 mg PO DAILY KOKI Stop: 12/15/17 09:01 Last Admin: 06/20/17 07:35 Dose: 75 mg Enoxaparin Sodium (Lovenox) 70 mg 1 mg/kg (70 mg) SQ Q12HR KOKI PRN Reason: Protocol Stop: 12/16/17 12:01 Last Admin: 06/20/17 06:46 Dose: 70 mg Furosemide (Lasix) 40 mg IVP BIDDIURETIC KOKI Stop: 12/18/17 21:01 Last Admin: 06/20/17 07:36 Dose: 40 mg Ceftriaxone Sodium 1,000 mg/ (Sterile Water) 10 mls @ 300 mls/hr IVP HS KOKI Stop: 12/15/17 21:01 Last Admin: 06/19/17 20:57 Dose: 10 mls/hr Lorazepam (Ativan) 0.5 mg PO Q6H PRN PRN Reason: Anxiety Stop: 12/16/17 11:48 Last Admin: 06/19/17 22:34 Dose: 0.5 mg Naloxone HCl (Narcan) 0.4 mg IVP Q2MIN PRN PRN Reason: Opioid Reversal Stop: 12/14/17 22:53 Nitroglycerin (Nitroglycerin) 0.4 mg SL Q5M PRN PRN Reason: Chest Pain Stop: 12/14/17 23:02 Omeprazole (Prilosec) 20 mg PO DAILY@0730 KOKI PRN Reason: Protocol Stop: 12/15/17 07:31 Last Admin: 06/20/17 07:35 Dose: 20 mg Ondansetron HCl (Zofran) 4 mg IVP Q8HR PRN PRN Reason: Nausea And Vomiting Stop: 12/14/17 22:53 Senna/Docusate Sodium (Senna Plus) 2 each PO BID PRN; Protocol PRN Reason: Constipation Stop: 12/18/17 16:23 Last Admin: 06/18/17 17:05 Dose: 2 each Tamsulosin HCl (Flomax) 0.4 mg PO BID KOKI PRN Reason: Protocol Stop: 12/15/17 09:01 Last Admin: 06/20/17 07:35 Dose: 0.4 mg Laboratory Tests 06/20/17 06/20/17 03:37 03:37 WBC 14.4 H Hgb 9.0 L Creatinine 1.01 - Imaging and Cardiology Chest Xray: report reviewed Echo: report reviewed Cardiac cath: report reviewed - EKG Interpretation EKG results cardiology: other (Telemetry reviewed with average HR previous 12 hours noted to be 86, SR. PVCS, couplets, and one 4 beat run of non-sustained VT noted. Intermittent short runs of PAF noted.) - VTE Documentation of Mechanical Device: Graduated compression elastic hosiery Consult Discharge Plan - Plan Referrals: Dane Justin MD [Primary Care Provider] - (Per [facility] office the patient needs to call and make his own appointment) Tarun Munreo CNP [Advanced Practice Nurse] - (Office will call patient at home with follow up appointment)
[2017-06-20] MEDS: Sennosides/Docusate Sodium TABLET PO PRN (11:54)
[2017-06-20] MEDS: Benzonatate 100 MG CAPSULE PO PRN (11:54)
[2017-06-20] MEDS ORDERED: Saliva Stimulant 100ml BOTTLE PO PRN (15:13)
[2017-06-20] MEDS ORDERED: *HR* Rivaroxaban 10 MG TABLET PO SCH (17:00)
[2017-06-20] MEDS: cefTRIAXone 1,000 MG in Water for inj. (sterile) 10 ML IVP SCH (20:21)
[2017-06-20] MEDS: *HR* LORazepam 0.5 MG TABLET PO PRN (20:22)
[2017-06-20] MEDS ORDERED: Chloraseptic Spray 177 ML BOTTLE MM PRN (22:08)
[2017-06-21] MEDS: Ipratropium/Albuterol Neb 3 ML IH SCH ×4 (00:05→11:13)
[2017-06-21 02:51] LABS: Hematocrit 30.1 % (37.5-50.1); Mean Corpuscular HGB Conc 29.9 g/dL (31.6-35.5); Mean Corpuscular Hemoglobin 21.2 pg (28.0-33.3); Platelet Count 406 K/mcL (140-400); Red Blood Count 4.24 M/mcL (4.19-5.50); Red Cell Distribution Width 17.9 % (11.5-14.5)
[2017-06-21 03:13] LABS: BUN/Creatinine Ratio 19 (6-26); Blood Urea Nitrogen 20 mg/dL (8-23); Calcium 8.4 mg/dL (8.6-10.3); Carbon Dioxide 33 mEq/L (23-29); Chloride 95 mEq/L (98-107); Glucose 98 mg/dL (70-105); Magnesium 1.8 mg/dL (1.6-2.6); Osmolality,Calculated 281 (280-300); Potassium 3.5 mEq/L (3.5-5.1); Sodium 134 mEq/L (136-145); eGFR For African Americans > 60 (> 60); eGFR For Non-African Americans > 60 (> 60)
[2017-06-21] MEDS: Budesonide/Formoterol 160/4.5 MDI IH SCH (07:30)
[2017-06-21 07:43] VITALS: BP 103/62
[2017-06-21] MEDS: Furosemide 40 MG/4 ML VIAL IVP SCH (08:00)
[2017-06-21] MEDS: *HR* Amiodarone 200 MG TABLET PO SCH (08:03)
[2017-06-21] MEDS: Aspirin Enteric Coated 81 MG Tablet PO SCH (08:04)
--- NOTE | 2017-06-21 10:01 | Discharge Summary ---
<Ceci Hope - Last Filed: 06/21/17 14:37> Date of Encounter: 06/21/17 Time of Encounter: 08:45 - Discharge Diagnosis (1) CHF (congestive heart failure) Priority: Primary Status: Acute Qualifiers: Congestive heart failure type: combined Congestive heart failure chronicity : acute on chronic Qualified Code(s): I50.43 - Acute on chronic combined systolic (congestive) and diastolic (congestive) heart failure (2) Community acquired pneumonia Priority: Secondary Status: Resolved Qualifiers: Laterality: unspecified laterality Qualified Code(s): J18.9 - Pneumonia, unspecified organism (3) CAD (coronary artery disease) Priority: Secondary Status: Chronic Qualifiers: Coronary Disease-Associated Artery/Lesion type: [place] artery [place] vs. transplanted heart: [place] heart Associated angina: without angina Qualified Code(s): I25.10 - Atherosclerotic heart disease of [place] coronary artery without angina pectoris (4) Atrial fibrillation with rapid ventricular response Priority: Secondary Status: Acute (5) Acute exacerbation of chronic obstructive airways disease Priority: Secondary Status: Resolved (6) Hypokalemia Priority: Secondary Status: Resolved - Discharge Medications Prescriptions: Amiodarone [Cordarone] 200 mg PO BID #35 tablet Benzonatate [Tessalon] 100 mg PO TID PRN #30 capsule PRN Reason: Cough Chloraseptic [place] [Chloraseptic] 2 spray MM QID PRN #1 bottle PRN Reason: Sore Throat Furosemide [Lasix] 40 mg PO BID #120 tablet Rivaroxaban [Xarelto] 20 mg PO 1700 #60 tablet Saliva Stimulant [Biotene Moisturizing Rinse] 1 spray PO Q6H PRN #1 bottle PRN Reason: Dry Mouth Sennosides/Docusate Sodium [Senna Plus] 2 each PO BID PRN #60 tablet PRN Reason: Constipation Home Medications: Clopidogrel [Plavix] 75 mg PO DAILY 01/25/16 [History] Omeprazole [PriLOSEC] 20 mg PO DAILY 01/25/16 [History] Atorvastatin [Lipitor] 40 mg PO HS 07/17/16 [History] Aspirin Enteric Coated [Aspirin EC] 81 mg PO DAILY #30 tablet. 07/27/16 [Rx] Fluticasone/Salmeterol [Advair 500-50 Diskus] 1 each IH BID 04/08/17 [History] Ipratropium/Albuterol Neb [Duoneb] 3 ml IH Q4-6H PRN 06/14/17 [History] Nitroglycerin [Nitrostat] 0.4 mg PO Q5M PRN 06/14/17 [History] Tamsulosin [Flomax] 0.4 mg PO BID 06/14/17 [History] Amiodarone [Cordarone] 200 mg PO BID #35 tablet 06/21/17 [Rx] Benzonatate [Tessalon] 100 mg PO TID PRN #30 capsule 06/21/17 [Rx] Chloraseptic [place] [Chloraseptic] 2 spray MM QID PRN #1 bottle 06/21/17 [Rx] Furosemide [Lasix] 40 mg PO BID #120 tablet 06/21/17 [Rx] Rivaroxaban [Xarelto] 20 mg PO 1700 #60 tablet 06/21/17 [Rx] Saliva Stimulant [Biotene Moisturizing Rinse] 1 spray PO Q6H PRN #1 bottle 06/21 [Rx] Sennosides/Docusate Sodium [Senna Plus] 2 each PO BID PRN #60 tablet 06/21/17 [ Rx] Allergies/Adverse Reactions: 3 Allergy/AdvReac Type Severity Reaction Status Date / Time No Known Allergies Allergy Verified 04/08/17 10:06 Procedures/tests Complete & Pending: Procedures Performed prior 72 hours Category Date Time Status CL Cardiac Catheterization [CL] Routine Cleaner Greaser 06/19/17 11:06 Completed ECG 12 lead ECG [ECG] Routine Y 06/19/17 18:03 Ordered Date of admission: 06/14/17 22:52 Primary care physician: Dane Justin MD Consults: 06/14/17 22:55 Consult to Cardiology [CONS] Routine Comment: Consulting Provider: Cardiology Anu Reason for Consult: new onset cardiology Time Notified: 22:55 Call Completed: No 06/18/17 16:22 Consult to Physical Therapy [CONS] Routine Comment: Evaluate, develop and implement POC Reason for Consult: Physical deconditioning. Discharge planning OT [Consult to Occupational Therapy] [CONS] Routine Comment: Evaluate, develop and implement POC Reason for Consult: Physical deconditioning. Discharge planning 06/20/17 10:22 Consult to Cardiac Rehabilitation-Phase1 [CONS] Routine Comment: Reason for Consult: s/p PCI Call Completed: No 06/20/17 13:46 Consult to Microelectronics Assembler [CONS] Routine Reason for SW Consult: ECF Placement Discharging clinician: Ceci Hope Anticipated date of discharge: 06/21/17 - Patient Status Disposition: Transfer SNF Condition: Fair Functional capacity at discharge: uses cane/walker Overall status at discharge: patient is progressing back to baseline - Discharge Instructions Instructions: Heart Failure (DC), Atrial Fibrillation (DC), Sepsis (DC), Pneumonia (DC) Follow Up With: Tarun Munroe CNP [Advanced Practice Nurse] - (Office will call patient at home with follow up appointment) Nhan,Dane Guzmán MD [Primary Care Provider] - (Patient is going to ECF no PCP appointment needed) Additional Instructions: Please take prescribed amiodarone 200 mg by mouth twice a day and then switch to once a day on 06/27/17. Please note your Xarelto has been increased to 20 mg daily and Lasix has been increased to 40 mg twice a day. You can use following prescribed medications as needed: Tessalon for cough, Senna Plus for constipation, Chloraseptic for sore throat and Biotene for dry mouth. Please follow up with cardiology after discharge. The cardiology clinic will call to schedule an appointment with you. - Diet and Activity Activity: as per physical therapy, increase activity as tolerated Diet: low fat, low cholesterol (With Vanilla Ensure plus BID) Hospital course: Mr. 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 In ED, patient was noted to have A-fib RVR at rate of 130 and elevated BNP 504. CXR found airspace opacities at the bilateral lung bases, left more than right, concerning of pneumonia. Patient was admitted on 06/14/17 for acute respiratory failure secondary to community-acquired pneumonia and CHF exacerbation. Patent was started on IV ceftriaxone, azithromycin and Lasix. Echo on 06/15/17 found LVEF 35-40% with moderate blotal and segmental LV systolic dysfunction and severe pulmonary hypertension. This is worse compared to prior echo on 07/22/16 which showed LVEF 45-50% with moderate LV diastolic dysfunction. Cardiology planed to have LHC once patient's respiratory status became stable. Patient eventually had LHC on 06/19/17 which found severe one vessel CAD with severe LV dysfunction EF 15% and primarily nonischemic cardiomyopathy. A drug-eluting stent was placed in the proximal LAD. Patient's respiratory status continues to improve since admission and patient finished 7-day course of IV ceftriaxone treatment on 06/20/17. Beta risa was switched to amiodarone drip for A-fib control on 06/16/17 due to hypotension associated with beta risa use. Patient was switched to PO amiodarone on 06/20/17 and tolerates it well. PT/OT recommended rehab/swing bed. On 06/21/17, patient has heart rate at mostly 80s and maintains good oxygenation on 2L NC. Given patient improves clinically and remains hemodynamically stable, patient can be discharged to [facility] where patient can continue physical therapy and occupational therapy. Patient is instructed to take prescribed amiodarone 200 mg by mouth twice a day and then switch to once a day on 06/27/17. Patient has Xarelto increased to 20 mg daily and Lasix increased to 40 mg twice a day. Patient can use following prescribed medications as needed: Tessalon for cough, Senna Plus for constipation, Chloraseptic for sore throat and Biotene for dry mouth. Patient will need follow-up with cardiology after discharge regarding his CHF. Patient expressed his understanding and agreement with the discharge plan. All questions were answered. - Time Spent with Patient Total time spent providing and/or coordinating discharge services: Greater than 30 minutes (45 minutes) - Constitutional Vitals: Temp Pulse Resp BP Pulse Ox 97.2 F L 86 18 103/62 100 06/21/17 07:55 06/21/17 07:55 06/21/17 07:55 06/21/17 07:55 06/21/17 07:55 General appearance: Present: A&O X 3, no acute distress, answers questions appropriately - Head Head exam: Present: normal inspection - Eye Eye exam: Present: EOMI, conjuntiva pink, sclera anicteric - Neck Neck exam general surgery: Present: normal inspection, supple, trachea midline - Respiratory Respiratory exam: Present: CTAB. Absent: accessory muscle use - Cardiovascular Cardiovascular exam: Present: RRR, +S1, +S2 - GI/Abdominal GI/Abdominal exam: Present: normal bowel sounds, soft, no peritoneal signs. Absent: tenderness - Extremities Exam Extremities exam: Present: pedal edema (Moderate BLE pitting edema), warm. Absent: cyanotic - Neurological Exam Neurological exam: Present: alert, no focal deficits. Absent: facial droop, speech deficit - Skin Skin exam: Present: dry, warm - VTE Documentation of Mechanical Device: Intermittent pneumatic compression device <James Nava - Last Filed: 06/21/17 15:59> Date of Encounter: 06/21/17 Procedures/tests Complete & Pending: Procedures Performed prior 72 hours Category Date Time Status CL Cardiac Catheterization [CL] Routine Cleaner Greaser 06/19/17 11:06 Completed ECG 12 lead ECG [ECG] Routine Y 06/19/17 18:03 Ordered Date of admission: 06/14/17 22:52 Primary care physician: Dane Justin MD Consults: 06/14/17 22:55 Consult to Cardiology [CONS] Routine Comment: Consulting Provider: Cardiology Anu Reason for Consult: new onset cardiology Time Notified: 22:55 Call Completed: No 06/18/17 16:22 Consult to Physical Therapy [CONS] Routine Comment: Evaluate, develop and implement POC Reason for Consult: Physical deconditioning. Discharge planning OT [Consult to Occupational Therapy] [CONS] Routine Comment: Evaluate, develop and implement POC Reason for Consult: Physical deconditioning. Discharge planning 06/20/17 10:22 Consult to Cardiac Rehabilitation-Phase1 [CONS] Routine Comment: Reason for Consult: s/p PCI Call Completed: No 06/20/17 13:46 Consult to Microelectronics Assembler [CONS] Routine Reason for SW Consult: ECF Placement Hospital course: Mr. Yeung is a 82 year old male - Time Spent with Patient Total time spent providing and/or coordinating discharge services: - Constitutional Vitals: Temp Pulse Resp BP Pulse Ox 97.2 F L 86 16 103/62 98 06/21/17 07:55 06/21/17 07:55 06/21/17 11:12 06/21/17 07:55 06/21/17 11:12 - Attending Attestation I examined this patient and my medical decision-making was reviewed with the Resident Physician Dr. Hope. I agree with the documented findings, disposition and treatment plan as described except to the extent set forth below. Mr. Yeung is a 82 year old male with a past medical history of CO and PCI in 2002, mild systolic dysfunction, atrial fibrillation on xarelto, COPD, and HTN who presents with the c/o SOB, cough, and orthopnea for two weeks. Pt stated he is feeling little better today. Still on 2.5 lit O2. Gen: A, A, O x3 Chest : Mild crackles, rales + DBS B/l Hear: s1 s2 + Irregular Ext: 2+ edema - Improving a/p 1. Acute hypoxic resp failure 2. Acute pneumonia - bacterial Finished abx Rocephin total 7 days course Finished 5 days Azithromycin cont duoneb 3. Acute systolci CHF exacerbation Improving switched to PO Lasix Cont close monitoring 4. CAD s/p PCI Had LHC showed severe one vessel CAD,with JATINDER placed in the proximal LAD cont ASA + Plavix 5. Acute Afib with RVR Improved rate controlled Doing well on PO Amiodarone resumed Xarelto for anti coag 6. Physical deconditioning ECF transfer today for short term PT / OT
--- NOTE | 2017-06-21 10:15 | Cardiology Progress Note ---
Date of Encounter: 06/21/17 Time of Encounter: 08:30 Assessment and Plan (1) Atrial fibrillation with rapid ventricular response Current Visit: Yes Status: Acute Per cardiology: -H/o PAF on xarelto in outpatient setting. Presented with atrial fibrillation with RVR, likely due to acute respiratory distress. -Of note, patient was on xarelto 10mg for history of DVT. -Currently SR, average HR 86. Short intermittent periods of PAF. -On amiodarone 200mg BID. -On xarelto 20mg daily. Xarelto assistance cards given to patient. -Per discussion with , will start amiodarone 200mg BID for one week, then 200mg daily. (2) CHF exacerbation Current Visit: Yes Status: Acute Per cardiology: -H/o mild systolic dysfunction and moderate diastolic dysfunction. Presents with acute on chronic systolic and diastolic CHF. SOB multifactoral with possible PNA and COPD exacerbation. -BNP 504. -TTE shows EF reduced at 35-40% this admit. Recommend [facility] for further evaluation once breathing has improved. Continues to have significant orthopnea. -TTE 07/2016 LVEF 45-50%. -On lasix 40mg IV BID. Currently net negative fluid balance of 300ml. -States breathing ok today. On NC at 3LPM, states wears 2.5LPM at home at all times. -Peripheral edema noted, improved today. -WEight today 66.3kd, baseline weight 68kg. -1500 ml fluid restriction. -Strict I&O and daily weights. -Currently not on arianne inhibitor or beta risa due to hypotension. Consider adding once BP will tolerate. -Cardiology will sign off. Recommend patient follow with his primary hobbing machine operator in 5-7 days after discharge. Patient follows with . Qualifiers: Congestive heart failure type: systolic Qualified Code(s): I50.23 - Acute on chronic systolic (congestive) heart failure (3) CAD (coronary artery disease) Current Visit: No Status: Chronic Per cardiology: -H/o PCI in 2002 per patient. Last stress test 06/2016 negative for ischemia ( [facility]). -S/p LHC yesterday with JATINDER to LAD. -ON asa, plavix, statin. Not on beta risa due to hypotension. -Educated on importance of dual anti-platelet therapy uninterrupted for at least one year. Of note, patient is on triple therapy with asa, plavix, xarelto. Consider discontinuation of asa after one week. -Right radial access site without hematoma or ecchymosis. -Right radial access site management education given to patient. -Denies chest pain. -Recommend patient follow with primary hobbing machine operator. I informed patient to discuss with his primary hobbing machine operator regarding discontinuation of aspirin. Qualifiers: Coronary Disease-Associated Artery/Lesion type: [place] artery [place] vs. transplanted heart: [place] heart Associated angina: without angina Qualified Code(s): I25.10 - Atherosclerotic heart disease of [place] coronary artery without angina pectoris Discussion w patient/family: The assessment and plan as outlined above was discussed with the patient who expressed understanding and agreement. All questions were answered. Thank you for involving us in the care of your patient. Please call with any questions. Discussed and reviewed with . Subjective Principal diagnosis: CHF, PNA, COPD, afib Interval history: Patient states he feels better today. Denies chest pain. Denies issues using right wrist. States breathing is "ok" today. States he feels that peripheral edema is improved today. Objective Vital Signs, Last 4 Hours Temp Pulse Resp BP Pulse Ox 06/21/17 07:55 97.2 F L 86 18 103/62 100 06/21/17 07:41 97.2 F L 86 18 103/62 100 06/21/17 07:30 16 98 General: Conversant, No Apparent Distress HEENT: Atraumatic, Normocephaly, Mucus Membranes Moist Neck: No JVD, Normal carotid pulses Cardiac: Reg Rate and Rhythm, Normal S1 and S2, No Murmur Lungs: Normal Breath Sounds, No Wheeze, Rales, Rhonchi Neuro: Alert and responsive, No focal deficits noted Abdomen: Soft, Non-Tender Skin: No rashes noted on visualized skin Musculoskeletal: No Chest Wall Tenderness Extremities: No Clubbing, No Cyanosis, Normal Pulses, Other (Moderate pedal edema noted, non-pitting. ) Results 06/21/17 02:20 06/21/17 02:20 Lab Results Active Medications Acetaminophen (Tylenol) 650 mg PO Q6HR PRN PRN Reason: Mild Pain (1-3) Stop: 12/14/17 22:53 Albuterol Sulfate (Proventil Neb) 2.5 mg IH Q2H PRN PRN Reason: Shortness Of Breath/Wheezing Stop: 12/14/17 23:00 Last Admin: 06/16/17 22:38 Dose: 2.5 mg Albuterol/Ipratropium (Duoneb) 3 ml IH [id number] [facility] Stop: 12/16/17 00:01 Last Admin: 06/21/17 07:29 Dose: 3 ml Amiodarone HCl (Cordarone) 200 mg PO BID [facility] Stop: 12/20/17 10:16 Last Admin: 06/21/17 08:03 Dose: 200 mg Aspirin (Aspirin Ec) 81 mg PO DAILY [facility] Stop: 12/15/17 09:01 Last Admin: 06/21/17 08:04 Dose: 81 mg Atorvastatin Calcium (Lipitor) 40 mg PO HS [facility] Stop: 12/15/17 21:01 Last Admin: 06/20/17 20:22 Dose: 40 mg Benzonatate (Tessalon) 100 mg PO TID PRN PRN Reason: Cough Stop: 12/14/17 22:57 Last Admin: 06/20/17 11:54 Dose: 100 mg Budesonide/Formoterol Fumarate (Symbicort) 2 puff IH BIDR [facility] Stop: 12/15/17 10:01 Last Admin: 06/21/17 07:30 Dose: 2 puff Clopidogrel Bisulfate (Plavix) 75 mg PO DAILY [facility] Stop: 12/15/17 09:01 Last Admin: 06/21/17 08:03 Dose: 75 mg Furosemide (Lasix) 40 mg IVP BIDDIURETIC [facility] Stop: 12/18/17 21:01 Last Admin: 06/21/17 08:00 Dose: 40 mg Ceftriaxone Sodium 1,000 mg/ (Sterile Water) 10 mls @ 300 mls/hr IVP HS [facility] Stop: 12/15/17 21:01 Last Infusion: 06/21/17 00:30 Dose: Infused Lorazepam (Ativan) 0.5 mg PO Q6H PRN PRN Reason: Anxiety Stop: 12/16/17 11:48 Last Admin: 06/20/17 20:22 Dose: 0.5 mg Multi-Ingredient Mucositis [place] (Chloraseptic) 2 spray MM QID PRN PRN Reason: Sore Throat Stop: 12/20/17 22:09 Naloxone HCl (Narcan) 0.4 mg IVP Q2MIN PRN PRN Reason: Opioid Reversal Stop: 12/14/17 22:53 Nitroglycerin (Nitroglycerin) 0.4 mg SL Q5M PRN PRN Reason: Chest Pain Stop: 12/14/17 23:02 Omeprazole (Prilosec) 20 mg PO DAILY@0730 [facility] PRN Reason: Protocol Stop: 12/15/17 07:31 Last Admin: 06/21/17 08:03 Dose: 20 mg Ondansetron HCl (Zofran) 4 mg IVP Q8HR PRN PRN Reason: Nausea And Vomiting Stop: 12/14/17 22:53 Rivaroxaban (Xarelto) 20 mg PO 1700 [facility] Stop: 12/20/17 17:01 Last Admin: 06/20/17 16:14 Dose: 20 mg Saliva Substitute (Biotene Moisturizing Rinse) 1 spray PO Q6H PRN PRN Reason: Dry Mouth Stop: 12/20/17 15:14 Last Admin: 06/21/17 02:48 Dose: 1 spray Senna/Docusate Sodium (Senna Plus) 2 each PO BID PRN; Protocol PRN Reason: Constipation Stop: 12/18/17 16:23 Last Admin: 06/20/17 11:54 Dose: 2 each Tamsulosin HCl (Flomax) 0.4 mg PO BID [facility] PRN Reason: Protocol Stop: 12/15/17 09:01 Last Admin: 06/21/17 08:03 Dose: 0.4 mg Laboratory Tests 06/21/17 06/21/17 02:20 02:20 WBC 13.4 H Hgb 9.0 L Creatinine 1.05 - Imaging and Cardiology Chest Xray: report reviewed Echo: report reviewed Cardiac cath: report reviewed - EKG Interpretation EKG results cardiology: other (Telemetry reviewed with average HR previous 12 hours noted to be 85, sinus rhythm. PVCS and PACs noted.) - VTE Documentation of Mechanical Device: Intermittent pneumatic compression device Consult Discharge Plan - Plan Instructions: Heart Failure (DC), Atrial Fibrillation (DC), Sepsis (DC), Pneumonia (DC) Additional Instructions: Please take prescribed amiodarone 200 mg by mouth twice a day and then switch to once a day on 06/27/17. Please note your Xarelto has been increased to 20 mg daily and Lasix has been increased to 40 mg twice a day. You can use following prescribed medications as needed: Tessalon for cough, Senna Plus for constipation, Chloraseptic for sore throat and Biotene for dry mouth. Please follow up with [place] [facility] after discharge. The [place] [facility] clinic will call to schedule an appointment with you. Referrals: Dane Justin MD [Primary Care Provider] - (Patient is going to [facility] no PCP appointment needed) Tarun Munroe CNP [Advanced Practice Nurse] - (Office will call patient at home with follow up appointment) Prescriptions: Amiodarone [Cordarone] 200 mg PO BID #35 tablet Benzonatate [Tessalon] 100 mg PO TID PRN #30 capsule PRN Reason: Cough Chloraseptic [place] [Chloraseptic] 2 spray MM QID PRN #1 bottle PRN Reason: Sore Throat Furosemide [Lasix] 40 mg PO BID #120 tablet Rivaroxaban [Xarelto] 20 mg PO 1700 #60 tablet Saliva Stimulant [Biotene Moisturizing Rinse] 1 spray PO Q6H PRN #1 bottle PRN Reason: Dry Mouth Sennosides/Docusate Sodium [Senna Plus] 2 each PO BID PRN #60 tablet PRN Reason: Constipation
--- NOTE | 2017-06-21 10:21 | Physician Discharge Referral ---
ExtendedCare Referral Info Transfer To: [facility] Provider in Charge after Transfer: PCP Institutional Level of Care: Skilled - Diagnosis (1) CHF (congestive heart failure) Priority: Primary Status: Acute (2) Community acquired pneumonia Priority: Secondary Status: Resolved (3) CAD (coronary artery disease) Priority: Secondary Status: Chronic (4) Atrial fibrillation with rapid ventricular response Priority: Secondary Status: Acute (5) Acute exacerbation of chronic obstructive airways disease Priority: Secondary Status: Resolved (6) Hypokalemia Priority: Secondary Status: Resolved - Transfer Medications Prescriptions: Amiodarone [Cordarone] 200 mg PO BID #35 tablet Benzonatate [Tessalon] 100 mg PO TID PRN #30 capsule PRN Reason: Cough Chloraseptic [place] [Chloraseptic] 2 spray MM QID PRN #1 bottle PRN Reason: Sore Throat Furosemide [Lasix] 40 mg PO BID #120 tablet Rivaroxaban [Xarelto] 20 mg PO 1700 #60 tablet Saliva Stimulant [Biotene Moisturizing Rinse] 1 spray PO Q6H PRN #1 bottle PRN Reason: Dry Mouth Sennosides/Docusate Sodium [Senna Plus] 2 each PO BID PRN #60 tablet PRN Reason: Constipation Home Medications: Clopidogrel [Plavix] 75 mg PO DAILY 01/25/16 [History] Omeprazole [PriLOSEC] 20 mg PO DAILY 01/25/16 [History] Atorvastatin [Lipitor] 40 mg PO HS 07/17/16 [History] Aspirin Enteric Coated [Aspirin EC] 81 mg PO DAILY #30 tablet. 07/27/16 [Rx] Fluticasone/Salmeterol [Advair 500-50 Diskus] 1 each IH BID 04/08/17 [History] Ipratropium/Albuterol Neb [Duoneb] 3 ml IH Q4-6H PRN 06/14/17 [History] Nitroglycerin [Nitrostat] 0.4 mg PO Q5M PRN 06/14/17 [History] Tamsulosin [Flomax] 0.4 mg PO BID 06/14/17 [History] Amiodarone [Cordarone] 200 mg PO BID #35 tablet 06/21/17 [Rx] Benzonatate [Tessalon] 100 mg PO TID PRN #30 capsule 06/21/17 [Rx] Chloraseptic [place] [Chloraseptic] 2 spray MM QID PRN #1 bottle 06/21/17 [Rx] Furosemide [Lasix] 40 mg PO BID #120 tablet 06/21/17 [Rx] Rivaroxaban [Xarelto] 20 mg PO 1700 #60 tablet 06/21/17 [Rx] Saliva Stimulant [Biotene Moisturizing Rinse] 1 spray PO Q6H PRN #1 bottle 06/21 [Rx] Sennosides/Docusate Sodium [Senna Plus] 2 each PO BID PRN #60 tablet 06/21/17 [ Rx] Allergies/Adverse Reactions: 3 Allergy/AdvReac Type Severity Reaction Status Date / Time No Known Allergies Allergy Verified 04/08/17 10:06 - Respiratory Orders Oxygen / L per min (2L) Smoking Cessation: Smoking cessation has been advised. For more information, call the [employer] Tobacco Quit Line at 0-323-KHAT-NOW. - Mobility Orders Ambulate - Rehabiliation Orders Rehab Potential: Fair Rehab Orders: Evaluation for Physical Therapy, Evaluation for Occupational Therapy - Diet Orders Cardiac (With vanilla ensure plus BID) CERTIFICATION: I certify that the transfer of the above named patient to an Extended Care Facility is necessary for the continuing treatment of the diagnosis listed. The above information is true and accurate reflection of patient's current condition. Confidential - Redisclosure prohibited without a patient's written consent.
== END 2017-06-21 11:34 | DRG 246 ==
LOC: 2NENU 19:19 → EMEROO 19:19 → SUATTDRO 22:52 → 2NENU 22:56 → 2NNU 06-16 15:23
PROVIDERS: ADMIT Internal Medicine; ATTEND Family Medicine

== ENCOUNTER 2017-07-12 12:44 | Inpatient (IN) ==
--- NOTE | 2017-07-12 12:53 | Emergency Department Note ---
Disposition Clinical Impression: GI bleed Qualifiers: GI bleed type/associated pathology: gastritis Gastritis type: unspecified gastritis Qualified Code(s): K29.71 - Gastritis, unspecified, with bleeding Anemia Qualifiers: Anemia type: iron deficiency Iron deficiency anemia type: unspecified iron deficiency Qualified Code(s): D50.9 - Iron deficiency anemia, unspecified Disposition: Admitted As Inpatient Condition: Fair Time of Disposition: 14:47 Abdominal Pain HPI - General Chief Complaint: ED Abdominal Pain Stated Complaint: Abdominal pain Time Seen by Provider: 07/12/17 12:48 Source: patient, EMS Nursing Notes Reviewed: Yes Vital Signs Reviewed: Yes - History of Present Illness HPI Narrative: Mr. Yeung, an 82yo male, presents from home via EMS for evaluation of abdominal pain and vomiting. Onset last night. He has vomiting multiple times since. No by mouth intake since 6 PM last night. Emesis described as brown. No notable coffee ground or tobacco looking debris. Patient has a history of constipation is hot and not had a bowel movement for the past 2 days. He does note, however, that his stools have become progressively darker though are not yet coal black. Patient has known anemia with hemoglobin of 7 and he was supposed to have a transfusion but he has not gotten around to it. He symptomatic with fatigue, dyspnea with exertion that is different from his typical CHF or COPD. He was recently diagnosed with pneumonia and had a heart catheter last 2 weeks. Patient's last blood transfusion was approximately 4 years ago. PMH: Hypertension, hyperlipidemia , A. fib on xarelto and amiodarone. Combined systolic and diastolic CHF. CAD with [place] 2 and stent 1 on aspirin and Plavix. Severe peripheral artery disease followed by hematology and on xarelto. COPD on 2.5-3 L nasal cannula continuously. Note: patient's xarelto was doubled from 10mg PO Qdaily to 20mg PO qdaily. This was done in the last 2 weeks; upon discharge from the hospital. Note: patient has not taken any aspirin, plavix, or xarelto today. ROS: Positive: As above Negative: Fever, chills, palpitations, chest pain, diaphoresis, unusual back pain, headache Pain Scale: 0 - Related Data Home Medications Medication Instructions Recorded Confirmed Clopidogrel [Plavix] 75 mg PO DAILY 01/25/16 07/12/17 Omeprazole [PriLOSEC] 20 mg PO DAILY 01/25/16 07/12/17 Atorvastatin [Lipitor] 40 mg PO HS 07/17/16 07/12/17 Fluticasone/Salmeterol [Advair 1 each IH BID 04/08/17 07/12/17 500-50 Diskus] Ipratropium/Albuterol Neb [Duoneb] 3 ml IH Q4-6H PRN 06/14/17 07/12/17 Nitroglycerin [Nitrostat] 0.4 mg PO Q5M PRN 06/14/17 07/12/17 Tamsulosin [Flomax] 0.4 mg PO BID 06/14/17 07/12/17 LORazepam [Ativan] 0.5 mg PO TID 07/12/17 07/12/17 Potassium Chloride [Klor-Con 10] 10 meq PO DAILY 07/12/17 07/12/17 Spironolactone [Aldactone] 25 mg PO DAILY 07/12/17 07/12/17 Previous Rx's Medication Instructions Recorded Aspirin Enteric Coated [Aspirin EC] 81 mg PO DAILY #30 tablet. 07/27/16 Furosemide [Lasix] 40 mg PO BID #120 tablet 06/21/17 Rivaroxaban [Xarelto] 20 mg PO 1700 #60 tablet 06/21/17 Saliva Stimulant [Biotene 1 spray PO Q6H PRN #1 bottle 06/21/17 Moisturizing Rinse] Sennosides/Docusate Sodium [Senna 2 each PO BID PRN #60 tablet 06/21/17 Plus] Allergies Allergy/AdvReac Type Severity Reaction Status Date / Time No Known Allergies Allergy Verified 04/08/17 10:06 All systems ED: reviewed and negative except as stated. Review of Systems: As Per HPI Abdominal Pain PMH - Past Medical History Medical history: Reports: asthma, COPD, coronary artery disease, DVT, hyperlipidemia, hypertension, myocardial infarction, RA, other Male Surgical History: Reports: herniorrhaphy, vascular surgery, other Psychiatric history: Reports: no psych history - Social History Smoking status: Never smoker Alcohol use: Reports: none Drug use: Reports: none Physical Exam Vital Signs Reviewed General: Patient is alert, oriented, and in acute distress-he is vomiting while I am bedside and is filled an emesis bag with liquid brown emesis. HEENT: No facial asymmetry. Head is normocephalic and atraumatic. PERRLA, EOMI. oral mucosa moist. Trachea midline. Cardiovascular: Heart regular rate and rhythm without clicks, rubs, gallops, or murmurs. No JVD. PMI nondisplaced. Bilateral radial pulses 2/4 equal. Respiratory: Symmetric chest rise with good respiratory effort. Bilateral breath sounds are clear without wheezing, crackles, or rhonchi. Abdomen: Bowel sounds present normoactive x-4 quadrants. Abdomen is soft, nondistended. Diffuse abdominal tenderness most prominent in the epigastrium. Musculoskeletal: Spontaneously moving all extremities. Neuro: Alert and oriented x4. Sensation light touch intact. Psych: Patient's affect is appropriate for situation. - General Limitations: no limitations General appearance: alert, in no apparent distress Course Course Narrative: Cardiac catheter 06/19/17: Severe 1 vessel CABG with stent placed in proximal LAD. Severe LV dysfunction EF 15% with primary nonischemic cardiomyopathy. Echocardiogram 06/14/17: Indication-new onset A. fib. LVEF 35-40% with moderate global and segmental LV systolic dysfunction. Severe pulmonary hypertension. No significant valvular dysfunction. Looking at the patient's historical hemoglobin, he has been dwindling since admission a 06/14 and his hemoglobin was 7.0 as of 3 days ago. Fecal occult blood is positive. Gastric occult ordered but not collected this patient had not vomited since his initial emesis bag was discarded by staff. Patient's nausea well controlled with Zofran. I discussed the patient with on-call endoscopy, Dr. Swanson, who agrees to follow the patient has consult hospitalist admission. I discussed the patient with the admitting hospitalist who agrees to accept the patient with endoscopy following. Vital Signs Temperature 97.6 F 07/12/17 12:44 Pulse Rate 88 07/12/17 12:44 Respiratory Rate 16 07/12/17 12:44 Blood Pressure 154/100 07/12/17 12:44 O2 Sat by Pulse Oximetry 98 07/12/17 12:44 Temperature 97.4 F L 07/12/17 17:43 Pulse Rate 91 07/12/17 17:43 Respiratory Rate 16 07/12/17 17:43 Blood Pressure 134/66 07/12/17 17:43 O2 Sat by Pulse Oximetry 100 02/02/18 17:43 Oxygen Delivery Oxygen Delivery Room Air Abdominal Pain - Lab Data Result diagrams: 07/12/17 13:52 07/12/17 13:52 Lab Results 07/12/17 07/12/17 07/12/17 Range/Units 13:20 13:52 13:52 WBC 11.3 H (4.3-11.1) K/mcL RBC 3.13 L (4.19-5.50) M/mcL Hgb 6.8 L (12.9-16.9) g/dL Hct 23.0 L (37.5-50.1) % MCV 73.5 L (83.0-100.0) fL MCH 21.7 L (28.0-33.3) pg MCHC 29.6 L (31.6-35.5) g/dL RDW 20.7 H (11.5-14.5) % Plt Count 395 (140-400) K/mcL MPV 9.3 L (9.4-12.4) fL Immature Gran % Test Not Performed Seg Neutrophils % 88.0 % Lymphocytes % 4.0 % Monocytes % 6.0 % Eosinophils % Test Not Performed Basophils % 2.0 % Neutrophils # 9.9 H (1.6-8.9) K/mcL Lymphocytes # 0.5 L (0.6-4.6) K/mcL Monocytes # 0.7 (0.0-1.3) K/mcL Eosinophils # Test Not Performed Basophils # 0.2 (0.0-0.2) K/mcL Nucleated RBCs/100 WBC 0.2 H (0) /100 WBC Platelet Estimate Normal (Normal) Hypochromasia Present A (Not Present) Anisocytosis 2+ A (Not Present) PT 14.6 H (9.4-12.1) Seconds INR 1.3 APTT 29.7 (26.0-36.0) Seconds Sodium (136-145) mEq/L Potassium (3.5-5.1) mEq/L Chloride (98-107) mEq/L Carbon Dioxide (23-29) mEq/L BUN (8-23) mg/dL Creatinine (0.70-1.30) mg/dL Est GFR ( Amer) (> 60) Est GFR (Non-Af Amer) (> 60) BUN/Creatinine Ratio (6-26) Glucose (70-105) mg/dL Calculated Osmolality (280-300) Lactic Acid (0.5-2.2) mmol/L Calcium (8.6-10.3) mg/dL Magnesium (1.6-2.6) mg/dL Troponin I (< 0.04) ng/mL Lipase (11-82) Units/L Stool Occult Blood Positive A (Negative) Blood Type Antibody Screen Crossmatch 07/12/17 07/12/17 07/12/17 Range/Units 13:52 13:52 13:52 WBC (4.3-11.1) K/mcL RBC (4.19-5.50) M/mcL Hgb (12.9-16.9) g/dL Hct (37.5-50.1) % MCV (83.0-100.0) fL MCH (28.0-33.3) pg MCHC (31.6-35.5) g/dL RDW (11.5-14.5) % Plt Count (140-400) K/mcL MPV (9.4-12.4) fL Immature Gran % Seg Neutrophils % % Lymphocytes % % Monocytes % % Eosinophils % Basophils % % Neutrophils # (1.6-8.9) K/mcL Lymphocytes # (0.6-4.6) K/mcL Monocytes # (0.0-1.3) K/mcL Eosinophils # Basophils # (0.0-0.2) K/mcL Nucleated RBCs/100 WBC (0) /100 WBC Platelet Estimate (Normal) Hypochromasia (Not Present) Anisocytosis (Not Present) PT (9.4-12.1) Seconds INR APTT (26.0-36.0) Seconds Sodium 138 (136-145) mEq/L Potassium 4.1 (3.5-5.1) mEq/L Chloride 102 (98-107) mEq/L Carbon Dioxide 28 (23-29) mEq/L BUN 20 (8-23) mg/dL Creatinine 0.84 (0.70-1.30) mg/dL Est GFR ( Amer) > 60 (> 60) Est GFR (Non-Af Amer) > 60 (> 60) BUN/Creatinine Ratio 24 (6-26) Glucose 135 H (70-105) mg/dL Calculated Osmolality 291 (280-300) Lactic Acid 1.8 (0.5-2.2) mmol/L Calcium 8.6 (8.6-10.3) mg/dL Magnesium 1.9 (1.6-2.6) mg/dL Troponin I 0.03 (< 0.04) ng/mL Lipase 22 (11-82) Units/L Stool Occult Blood (Negative) Blood Type Antibody Screen Crossmatch 07/12/17 Range/Units 13:52 WBC (4.3-11.1) K/mcL RBC (4.19-5.50) M/mcL Hgb (12.9-16.9) g/dL Hct (37.5-50.1) % MCV (83.0-100.0) fL MCH (28.0-33.3) pg MCHC (31.6-35.5) g/dL RDW (11.5-14.5) % Plt Count (140-400) K/mcL MPV (9.4-12.4) fL Immature Gran % Seg Neutrophils % % Lymphocytes % % Monocytes % % Eosinophils % Basophils % % Neutrophils # (1.6-8.9) K/mcL Lymphocytes # (0.6-4.6) K/mcL Monocytes # (0.0-1.3) K/mcL Eosinophils # Basophils # (0.0-0.2) K/mcL Nucleated RBCs/100 WBC (0) /100 WBC Platelet Estimate (Normal) Hypochromasia (Not Present) Anisocytosis (Not Present) PT (9.4-12.1) Seconds INR APTT (26.0-36.0) Seconds Sodium (136-145) mEq/L Potassium (3.5-5.1) mEq/L Chloride (98-107) mEq/L Carbon Dioxide (23-29) mEq/L BUN (8-23) mg/dL Creatinine (0.70-1.30) mg/dL Est GFR ( Amer) (> 60) Est GFR (Non-Af Amer) (> 60) BUN/Creatinine Ratio (6-26) Glucose (70-105) mg/dL Calculated Osmolality (280-300) Lactic Acid (0.5-2.2) mmol/L Calcium (8.6-10.3) mg/dL Magnesium (1.6-2.6) mg/dL Troponin I (< 0.04) ng/mL Lipase (11-82) Units/L Stool Occult Blood (Negative) Blood Type O POSITIVE Antibody Screen NEGATIVE Crossmatch See Detail - EKG Data EKG attestation: Yes I reviewed and interpreted this EKG. EKG results narrative: EKG date07/30/1812: 13 interpreted as sinus rhythm with rate of 86. Normal intervals. Normal axis. Nonspecific ST-T changes. Compared to previous dated 06/14/2017 which is atrial fibrillation with RVR. No acute ischemic changes comparison. Attestation Statement - Attestation Attestation: I, Martell Montalvo, examined this patient and my medical decision-making was reviewed with the DIRECTOR OF KIDS/PA/Advanced Practice Nurse/Resident Physician. I agree with the documented findings, disposition and treatment plan as described except to the extent set forth below. 82-year-old male presents emergency Department with concerns of weakness, fatigue and multiple episodes of vomiting. Patient states he had a recent procedure for stenting of his heart secondary to dysrhythmia. Since that time he has had multiple episodes of vomiting which have been described as dark emesis. Patient has also had dark loose stools. His hemoglobin has steadily been dropping. It is now 6.7 on repeat testing. The resident spoke with the endoscopist, Dr. Swanson who is aware of the patient in the hospital. Patient admitted to the hospitalist for further care and evaluation.
[2017-07-12] MEDS ORDERED: Ondansetron 4 MG/2 ML VIAL IVP ONE (12:57)
[2017-07-12] MEDS ORDERED: Pantoprazole 40 MG VIAL IVP ONE (13:08)
[2017-07-12] MEDS ORDERED: *HR* FentaNYL (PF) 100 MCG/2 ML VIAL IVP ONE (13:08)
[2017-07-12 14:08] LABS: Nucleated Red Blood Cells 0.2 /100 WBC (0)
[2017-07-12 14:10] LABS: Mean Corpuscular HGB Conc 29.6 g/dL (31.6-35.5); Mean Corpuscular Hemoglobin 21.7 pg (28.0-33.3); Mean Corpuscular Volume 73.5 fL (83.0-100.0); Mean Platelet Volume 9.3 fL (9.4-12.4); Platelet Count 395 K/mcL (140-400); Red Blood Count 3.13 M/mcL (4.19-5.50); Red Cell Distribution Width 20.7 % (11.5-14.5)
[2017-07-12 14:11] LABS: INR 1.3; Prothrombin Time 14.6 Seconds (9.4-12.1)
[2017-07-12 14:12] LABS: Calcium 8.6 mg/dL (8.6-10.3); Carbon Dioxide 28 mEq/L (23-29); Chloride 102 mEq/L (98-107); Magnesium 1.9 mg/dL (1.6-2.6); Potassium 4.1 mEq/L (3.5-5.1); Sodium 138 mEq/L (136-145)
[2017-07-12 14:14] LABS: Activated Partial Thrombo Time 29.7 Seconds (26.0-36.0)
[2017-07-12 14:18] LABS: BUN/Creatinine Ratio 24 (6-26); Blood Urea Nitrogen 20 mg/dL (8-23); Glucose 135 mg/dL (70-105); Hemoglobin 6.8 g/dL (12.9-16.9); Lipase 22 Units/L (11-82); Osmolality,Calculated 291 (280-300); eGFR For African Americans > 60 (> 60); eGFR For Non-African Americans > 60 (> 60)
[2017-07-12 14:54] LABS: Anisocytosis 2+ (Not Present); Basophils # 0.2 K/mcL (0.0-0.2); Hypochromasia Present (Not Present); Lymphocytes # 0.5 K/mcL (0.6-4.6); Monocytes # 0.7 K/mcL (0.0-1.3); Neutrophils # 9.9 K/mcL (1.6-8.9)
[2017-07-12 14:55] LABS: Platelet Estimate Normal (Normal)
--- NOTE | 2017-07-12 15:53 | Internal Med History&Physical ---
Date of Encounter: 07/12/17 Time of Encounter: 15:49 Assessment and Plan (1) Anemia Current visit: Yes Status: Acute This patient has severe iron deficiency anemia from lower MCV was started patient on iron supplement was heme positive in the ER GI has been consulted Qualifiers: Anemia type: iron deficiency Qualified Code(s): D50.0 - Iron deficiency anemia secondary to blood loss (chronic) (2) GI bleed Current visit: Yes Status: Acute GI bleed likely upper GI bleed Qualifiers: GI bleed type/associated pathology: gastritis Gastritis type: unspecified gastritis Qualified Code(s): K29.71 - Gastritis, unspecified, with bleeding (3) COPD exacerbation Current visit: No Status: Acute Patient was a very poorly very likely has severe COPD does not follow with pulmonology (4) CAD (coronary artery disease) Current visit: No Status: Chronic Status post recent drug-eluting stent placement in LAD in spite of the GI bleed will continue aspirin and Plavix for SOME OF STENT THROMBOSIS NEED TO BE ON DUAL ANTIPLATELET FOR AT LEAST 3 MONTHS BUT WILL HOLD Qualifiers: Coronary Disease-Associated Artery/Lesion type: [place] artery [place] vs. transplanted heart: [place] heart Associated angina: without angina Qualified Code(s): I25.10 - Atherosclerotic heart disease of [place] coronary artery without angina pectoris (5) Hypertension Current visit: No Status: Chronic Chronic and well controlled Qualifiers: Hypertension type: essential hypertension Qualified Code(s): I10 - Essential (primary) hypertension Internal Medicine - H&P: HPI Chief complaint: gi bleed Admitted From: Emergency Dept Plans for Post Hospital Care: Home History of present illness: Mr. Yeung is a 82 year old male Patient with history of CAD had a recent PTCA with drug-eluting stent to the LAD , at that time had atrial fibrillation started on xarelto , has severe cardiomyopathy by cardiac cath echo EF was 35% patient also history of congestive heart failure, COPD , hypertension patient presented emergency room with abdominal pain and vomiting since last night some brown emesis also has some melena has been having increased fatigue, shortness of breath with exertion . walks accross the room become very short of breath , no chest pain and emergency room was noted to have hemoglobin of 6.8 recent hemoglobin was 7.4 with low MCV GI has been contacted and he will be admitted on exam patient moves air very poorly from COPD has bilateral 2-3+ pitting edema as s3 on exam Past Med Surg Social Fam HX - Past Medical History Medical history: asthma, COPD, coronary artery disease, DVT, hyperlipidemia, hypertension, myocardial infarction, RA, other Psychiatric history: no psych history - Past Surgical History Surgical History: angioplasty/stent (x2 in 2002), herniorrhaphy (right inguinal 09/2011; ventral hernia repair 09/2007), LE Bypass, LE vascular intervention, vascular surgery (Right thrombectomy fem/fem bypass graft 01/03/2014; Fem/Fem bypass 2006; left fem/pop bypass 1994) - Social History Smoking Status: Never smoker Smokeless Tobacco Status: No Alcohol use: none Drug use: none - Family History Mother Living Status: Hx Family Respiratory Disorders: Yes Father Living Status: Hx Family Cancer: Yes Internal Medicine - H&P: Meds Clopidogrel [Plavix] 75 mg PO DAILY 01/25/16 [History] Omeprazole [PriLOSEC] 20 mg PO DAILY 01/25/16 [History] Atorvastatin [Lipitor] 40 mg PO HS 07/17/16 [History] Aspirin Enteric Coated [Aspirin EC] 81 mg PO DAILY #30 tablet. 07/27/16 [Rx] Fluticasone/Salmeterol [Advair 500-50 Diskus] 1 each IH BID 04/08/17 [History] Ipratropium/Albuterol Neb [Duoneb] 3 ml IH Q4-6H PRN 06/14/17 [History] Nitroglycerin [Nitrostat] 0.4 mg PO Q5M PRN 06/14/17 [History] Tamsulosin [Flomax] 0.4 mg PO BID 06/14/17 [History] Furosemide [Lasix] 40 mg PO BID #120 tablet 06/21/17 [Rx] Rivaroxaban [Xarelto] 20 mg PO 1700 #60 tablet 06/21/17 [Rx] Saliva Stimulant [Biotene Moisturizing Rinse] 1 spray PO Q6H PRN #1 bottle 06/21 [Rx] Sennosides/Docusate Sodium [Senna Plus] 2 each PO BID PRN #60 tablet 06/21/17 [ Rx] LORazepam [Ativan] 0.5 mg PO TID 07/12/17 [History] Potassium Chloride [Klor-Con 10] 10 meq PO DAILY 07/12/17 [History] Spironolactone [Aldactone] 25 mg PO DAILY 07/12/17 [History] 3 Allergy/AdvReac Type Severity Reaction Status Date / Time No Known Allergies Allergy Verified 04/08/17 10:06 All Systems PM: A 10-system review of systems was performed and is negative for pertinent findings except as documented above in the HPI. - Constitutional Constitutional: anorexia, fatigue, lethargy - EENT Eyes: no change in vision, no discharge, no pain, no photophobia Ears: no ear discharge, no ear pain, no tinnitus Nose, mouth and throat: no dysphagia, no nasal discharge, no neck pain, no sore throat - Cardiovascular Cardiovascular ROS IM: dyspnea, dyspnea on exertion, irregular heart rhythm, orthopnea - Respiratory Respiratory: dyspnea, dyspnea on exertion, wheezing - Gastrointestinal Gastrointestinal: melena, nausea, vomiting - Musculoskeletal Musculoskeletal ROS IM: no numbness, no tingling - Constitutional Vitals: Temp Pulse Resp BP Pulse Ox 97.6 F 88 18 130/70 98 07/12/17 12:44 07/12/17 12:44 07/12/17 15:21 07/12/17 15:21 07/12/17 12:44 General appearance: Present: mild distress - Eye Eye exam: Present: PERRL, conjuntiva pink, sclera anicteric Pupils: Present: PERRL - Respiratory Respiratory exam: Present: decreased breath sounds, prolonged expiratory phase, wheezes - Cardiovascular Cardiovascular exam: Present: irregular rhythm, systolic murmur - GI/Abdominal GI/Abdominal exam: Present: soft - Extremities Exam Extremities exam: Present: pedal edema Internal Med - H&P Results - Labs CBC & Chem 7: 07/12/17 13:52 07/12/17 13:52
[2017-07-12] MEDS ORDERED: Acetaminophen 325 MG TABLET PO PRN (16:01)
[2017-07-12] MEDS ORDERED: Naloxone 0.4 MG/ML INJ IVP PRN (16:01)
[2017-07-12] MEDS ORDERED: Sennosides/Docusate Sodium TABLET PO PRN (16:06)
[2017-07-12] MEDS ORDERED: Saliva Stimulant 100ml BOTTLE PO PRN (16:06)
[2017-07-12] MEDS ORDERED: 0.9 % Sodium Chloride 500 ML ONE (16:08)
[2017-07-12] MEDS ORDERED: Ipratropium/Albuterol Neb 3 ML IH PRN (16:09)
--- NOTE | 2017-07-12 16:50 | General Surgery Consult Note ---
Date of Encounter: 07/12/17 Time of Encounter: 16:40 Assessment and Plan (1) Anemia Current Visit: Yes Status: Acute The patient will require EGD and colonoscopy. Currently he is vomiting and anemic. I would like to see him transfused him hydrated and have overall improvement in his condition prior to endoscopy. I will be glad to follow along with you. We will provide EGD and colonoscopy wound patient stabilizes. Qualifiers: Anemia type: iron deficiency Iron deficiency anemia type: unspecified iron deficiency Qualified Code(s): D50.9 - Iron deficiency anemia, unspecified History of Present Illness Consult date: 07/12/17 Reason for consult: other (Iron deficiency anemia) History of present illness: The patient has a complex medical history including peripheral vascular disease , coronary artery disease, iron deficiency anemia. He has not had recent upper or lower endoscopy. Today he presented to the emergency room with centralized abdominal pain. This was soon followed by vomiting times. The patient was guaiac positive from below and was admitted for iron deficiency anemia with acute vomiting. On examination today the patient complains of mild intermittent central crampy abdominal pain. He states that he has had difficulty with constipation over the last several weeks. He has not had any diarrhea. He developed vomiting earlier today. He does not report any hematemesis. Today he feels very poorly and his hemoglobin is 6.6. There is no bright red rectal bleeding or hematemesis. I would like his condition is stabilized with transfusion and hydration prior to endoscopy. I will be glad to follow along with you. Past Med Surg Social Fam HX - Past Medical History Medical history: asthma, COPD, coronary artery disease, DVT, hyperlipidemia, hypertension, myocardial infarction, RA, other Psychiatric history: no psych history - Past Surgical History Surgical History: angioplasty/stent (x2 in 2002), herniorrhaphy (right inguinal 09/2011; ventral hernia repair 09/2007), LE Bypass, LE vascular intervention, vascular surgery (Right thrombectomy fem/fem bypass graft 01/03/2014; Fem/Fem bypass 2006; left fem/pop bypass 1994) - Social History Smoking Status: Never smoker Smokeless Tobacco Status: No Alcohol use: none Drug use: none - Family History Mother Living Status: Hx Family Respiratory Disorders: Yes Father Living Status: Hx Family Cancer: Yes Medications and Allergies Clopidogrel [Plavix] 75 mg PO DAILY 01/25/16 [History] Omeprazole [PriLOSEC] 20 mg PO DAILY 01/25/16 [History] Atorvastatin [Lipitor] 40 mg PO HS 07/17/16 [History] Aspirin Enteric Coated [Aspirin EC] 81 mg PO DAILY #30 tablet. 07/27/16 [Rx] Fluticasone/Salmeterol [Advair 500-50 Diskus] 1 each IH BID 04/08/17 [History] Ipratropium/Albuterol Neb [Duoneb] 3 ml IH Q4-6H PRN 06/14/17 [History] Nitroglycerin [Nitrostat] 0.4 mg PO Q5M PRN 06/14/17 [History] Tamsulosin [Flomax] 0.4 mg PO BID 06/14/17 [History] Furosemide [Lasix] 40 mg PO BID #120 tablet 06/21/17 [Rx] Rivaroxaban [Xarelto] 20 mg PO 1700 #60 tablet 06/21/17 [Rx] Saliva Stimulant [Biotene Moisturizing Rinse] 1 spray PO Q6H PRN #1 bottle 06/21 [Rx] Sennosides/Docusate Sodium [Senna Plus] 2 each PO BID PRN #60 tablet 06/21/17 [ Rx] LORazepam [Ativan] 0.5 mg PO TID 07/12/17 [History] Potassium Chloride [Klor-Con 10] 10 meq PO DAILY 07/12/17 [History] Spironolactone [Aldactone] 25 mg PO DAILY 07/12/17 [History] 3 Allergy/AdvReac Type Severity Reaction Status Date / Time No Known Allergies Allergy Verified 04/08/17 10:06 Review of Systems All systems PM: A 10-system review of systems was performed and is negative for pertinent findings except as documented above in the HPI. General Surgery Exam Initial Vital Signs Temp Pulse Resp BP Pulse Ox 97.6 F 88 16 154/100 98 07/12/17 12:44 07/12/17 12:44 07/12/17 12:44 07/12/17 12:44 07/12/17 12:44 - General physical appearance chronically ill, other ([place]) - Respiratory crackles: bilateral, wheezing: bilateral - Cardiovascular Cardiovascular exam: Present: RRR, no murmurs/rubs/gallops - Abdomen Abdomen general surgery: Present: bowel sounds present (No guarding or rebound) , distended - Neurologic Present: CN 2-12 grossly intact, normal coordination, normal sensation - Psychiatric Psychiatric general surgery: Present: appropriate, oriented to person, oriented to place, oriented to time, speech is normal, memory intact Exam Initial Vital Signs Temp Pulse Resp BP Pulse Ox 97.6 F 88 16 154/100 98 07/12/17 12:44 07/12/17 12:44 07/12/17 12:44 07/12/17 12:44 07/12/17 12:44 Results - Labs 07/12/17 13:52 07/12/17 13:52 Abnormal lab results WBC 11.3 K/mcL (4.3-11.1) H 07/12/17 13:52 RBC 3.13 M/mcL (4.19-5.50) L 07/12/17 13:52 Hgb 6.8 g/dL (12.9-16.9) L 07/12/17 13:52 Hct 23.0 % (37.5-50.1) L 07/12/17 13:52 MCV 73.5 fL (83.0-100.0) L 07/12/17 13:52 MCH 21.7 pg (28.0-33.3) L 07/12/17 13:52 MCHC 29.6 g/dL (31.6-35.5) L 07/12/17 13:52 RDW 20.7 % (11.5-14.5) H 07/12/17 13:52 MPV 9.3 fL (9.4-12.4) L 07/12/17 13:52 Neutrophils # 9.9 K/mcL (1.6-8.9) H 07/12/17 13:52 Lymphocytes # 0.5 K/mcL (0.6-4.6) L 07/12/17 13:52 Nucleated RBCs/100 WBC 0.2 /100 WBC (0) H 07/12/17 13:52 Hypochromasia Present (Not Present) A 07/12/17 13:52 Anisocytosis 2+ (Not Present) A 07/12/17 13:52 PT 14.6 Seconds (9.4-12.1) H 07/12/17 13:52 Glucose 135 mg/dL (70-105) H 07/12/17 13:52 Stool Occult Blood Positive (Negative) A 07/12/17 13:20 All other labs normal. Consult Discharge Plan - Plan
[2017-07-12] MEDS: Ondansetron 4 MG/2 ML VIAL IVP PRN (17:27)
[2017-07-12] MEDS: *HR* LORazepam 0.5 MG TABLET PO SCH (19:48)
[2017-07-12] MEDS ORDERED: *HR* Promethazine 25 MG/ML VIAL IVP ONE (19:52)
[2017-07-12] MEDS: Ipratropium/Albuterol Neb 3 ML IH SCH ×2 (20:08→23:27)
[2017-07-12] MEDS: Furosemide 40 MG/4 ML VIAL IVP SCH (20:13)
[2017-07-13] MEDS: Ondansetron 4 MG/2 ML VIAL IVP PRN (00:11)
[2017-07-13] MEDS: Pantoprazole 40 MG in 0.9 % Sodium Chloride Mini Bag 100 ML IVC SCH ×2 (02:08→06:45)
[2017-07-13] MEDS: *HR* Promethazine 25 MG/ML VIAL IVP PRN ×2 (02:09→06:44)
[2017-07-13] MEDS: Ipratropium/Albuterol Neb 3 ML IH SCH ×5 (03:50→20:16)
[2017-07-13 05:32] LABS: Basophils % 0.1 %; Hematocrit 25.4 % (37.5-50.1); Hemoglobin 7.7 g/dL (12.9-16.9); Immature Granulocytes % 0.5 % (0-4); Lymphocytes # 0.9 K/mcL (0.6-4.6); Lymphocytes % 6.4 %; Mean Corpuscular HGB Conc 30.3 g/dL (31.6-35.5); Mean Corpuscular Hemoglobin 22.7 pg (28.0-33.3); Mean Corpuscular Volume 74.9 fL (83.0-100.0); Mean Platelet Volume 9.6 fL (9.4-12.4); Monocytes # 1.4 K/mcL (0.0-1.3); Neutrophils # 11.3 K/mcL (1.6-8.9); Nucleated Red Blood Cells 0.4 /100 WBC (0); Platelet Count 403 K/mcL (140-400); Red Blood Count 3.39 M/mcL (4.19-5.50); Red Cell Distribution Width 20.2 % (11.5-14.5)
[2017-07-13 05:56] LABS: Alanine Aminotransferase 13 Units/L (7-52); Albumin 3.2 g/dL (3.5-5.7); Albumin/Globulin Ratio 1.1 (1.1-2.2); Alkaline Phosphatase 67 Units/L (34-104); Aspartate Amino Transferase 18 Units/L (13-39); BUN/Creatinine Ratio 21 (6-26); Bilirubin,Total 1.7 mg/dL (0.3-1.0); Blood Urea Nitrogen 19 mg/dL (8-23); Calcium 8.6 mg/dL (8.6-10.3); Carbon Dioxide 30 mEq/L (23-29); Chloride 100 mEq/L (98-107); Globulin 2.8 g/dL (2.4-3.5); Glucose 116 mg/dL (70-105); Magnesium 1.9 mg/dL (1.6-2.6); Osmolality,Calculated 289 (280-300); Potassium 3.5 mEq/L (3.5-5.1); Sodium 138 mEq/L (136-145); eGFR For African Americans > 60 (> 60); eGFR For Non-African Americans > 60 (> 60)
[2017-07-13] MEDS: Budesonide/Formoterol 160/4.5 MDI IH SCH ×2 (07:59→16:54)
[2017-07-13] MEDS: *HR* LORazepam 0.5 MG TABLET PO SCH (08:09)
[2017-07-13] MEDS: Furosemide 40 MG/4 ML VIAL IVP SCH (08:09)
[2017-07-13] MEDS ORDERED: Aspirin Enteric Coated 81 MG Tablet PO SCH (09:00)
[2017-07-13] MEDS ORDERED: Spironolactone 25 MG TABLET PO SCH (09:00)
[2017-07-13] MEDS ORDERED: Pantoprazole 40 MG VIAL IVP SCH ×2 (09:00→21:00)
--- NOTE | 2017-07-13 12:15 | Cardiology Consult Note ---
<Alexi Cabral R - Last Filed: 07/13/17 12:34> Date of Encounter: 07/13/17 Time of Encounter: 12:12 Assessment and Plan (1) GI bleed Current Visit: Yes Status: Acute Surgery following. Presented with fatigue, abdominal pain, vomiting. Found to have HGB 6.8 initially. Pt was on triple therapy--ASA, Plavix, Xarelto. Cardiology consulted for anticoagulation recommendations. Recommend stopping Xarelto, which has already been done. Pt had LHC 06/19/17 with JATINDER to pLAD. Recommend continuing ASA and Plavix for the next year due to risk of stent thrombosis if DAPT is stopped. No further cardiology recommendations. Anticipate sign off once seen and examined by Dr. Martell Bean. Of note, recommend close observance of his fluid volume status given his known systolic CHF with PRBC transfusions planned. Recommend keeping HGB >8 given his underlying cardiac disease. Qualifiers: GI bleed type/associated pathology: gastritis Gastritis type: unspecified gastritis Qualified Code(s): K29.71 - Gastritis, unspecified, with bleeding (2) Cardiomyopathy Current Visit: Yes Status: Acute EF 35-40%. 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 Continue Aldactone. Historically not on BB due or ACEi due to hypotension. Add if able. BLE edema noted on exam. On IV diuresis. Qualifiers: Cardiomyopathy type: unspecified Qualified Code(s): I42.9 - Cardiomyopathy , unspecified (3) PAF (paroxysmal atrial fibrillation) Current Visit: Yes Status: Chronic Known PAF. Was on Xarelto 20mg daily, but as above, presented with GI bleed. Hold Xarelto. Currently SR. During recent hospitalization he was discharged home on Amiodarone 200mg daily, which is currently not listed on med list. Will resume. [id number] (Age, HTN, CAD, CHF). High CVA risk, but in setting of GI bleed need to stop Xarelto. Resume Amiodarone 200mg in attempt to maintain SR and reduce CVA risk. (4) CAD (coronary artery disease) Current Visit: Yes Status: Chronic JATINDER to pLAD 06/19/17 as above. Continue ASA, Plavix, Statin. No BB due to hypotension historically. Add BB prior to d/c if BP allows. Qualifiers: Coronary Disease-Associated Artery/Lesion type: [place] artery [place] vs. transplanted heart: [place] heart Associated angina: without angina Qualified Code(s): I25.10 - Atherosclerotic heart disease of [place] coronary artery without angina pectoris (5) Congestive heart failure (CHF) Current Visit: Yes Status: Acute Known EF 35-40%. CXR no significant findings. 2+ BLE edema on exam. Agree with IV Lasix 40mg BID. Monitor fluid volume status closely with transfusions. Strict I/Os, Na and fluid restriction, daily weights. Qualifiers: Congestive heart failure type: systolic Congestive heart failure chronicity : acute on chronic Qualified Code(s): I50.23 - Acute on chronic systolic ( congestive) heart failure Discussion w patient/family: The assessment and plan as outlined above was discussed with the patient and/or family members who expressed understanding and agreement. All questions were answered. Thank you for involving us in the care of your patient. Please call with any questions. I will discuss all the above with Dr. Martell Bean and make changes as necessary. History of Present Illness Consult date: 07/13/17 Requesting physician: Blanca Guevara Consult reason: anticoagulation recommendations Chief complaint: dyspnea, fatigue, abdominal pain, vomiting History of present illness: Mr. Yeung is a 82 year old male with PMH of CAD s/p PCI as recently as JATINDER to pLAD, systolic CHF EF 35-40%, A-Fib on Xarelto that was recently discharged for the listed diagnoses. He presented back to [facility] with abdominal pain and vomiting, fatigue and dyspnea. HGB found to be 6.8, stool occult blood positive. Cardiology consulted for anticoagulation recommendations as he was on triple therapy--ASA, Plavix, Xarelto. Pt denies chest pain. Endorese LE edema as well, unsure if worse than baseline. Prior CV testing: [facility] 06/19/17: There is severe one vessel coronary artery disease. There is severe LV Dysfunction EF 15% with primarily nonischemic cardiomyopathy. Patient had successful PTCA/Drug-Eluting Stent placement in the proximal LAD. FFR Measurement: 0.8 measured at the distal portion of the proximal LAD. FFR Measurement: 0.75 in the Distal LAD. TTE 06/14/17: LVEF 35-40%. Moderate global and segmental left ventricular systolic dysfunction. Severe pulmonary hypertension. No significant valvular dysfunction. Past Med Surg Social Fam HX - Past Medical History Medical history: asthma, atrial fibrillation, cardiomyopathy, COPD, coronary artery disease, DVT, hyperlipidemia, hypertension, myocardial infarction, RA, other Psychiatric history: no psych history - Past Surgical History Surgical History: angioplasty/stent (x2 in 2002), herniorrhaphy (right inguinal 09/2011; ventral hernia repair 09/2007), LE Bypass, LE vascular intervention, vascular surgery (Right thrombectomy fem/fem bypass graft 01/03/2014; Fem/Fem bypass 2006; left fem/pop bypass 1994) - Social History Smoking Status: Never smoker Smokeless Tobacco Status: No Alcohol use: none Drug use: none - Family History Mother Living Status: Hx Family Respiratory Disorders: Yes Father Living Status: Hx Family Cancer: Yes Medications and Allergies Clopidogrel [Plavix] 75 mg PO DAILY 01/25/16 [History] Omeprazole [PriLOSEC] 20 mg PO DAILY 01/25/16 [History] Atorvastatin [Lipitor] 40 mg PO HS 07/17/16 [History] Aspirin Enteric Coated [Aspirin EC] 81 mg PO DAILY #30 tablet. 07/27/16 [Rx] Fluticasone/Salmeterol [Advair 500-50 Diskus] 1 each IH BID 04/08/17 [History] Ipratropium/Albuterol Neb [Duoneb] 3 ml IH Q4-6H PRN 06/14/17 [History] Nitroglycerin [Nitrostat] 0.4 mg PO Q5M PRN 06/14/17 [History] Tamsulosin [Flomax] 0.4 mg PO BID 06/14/17 [History] Furosemide [Lasix] 40 mg PO BID #120 tablet 06/21/17 [Rx] Rivaroxaban [Xarelto] 20 mg PO 1700 #60 tablet 06/21/17 [Rx] Saliva Stimulant [Biotene Moisturizing Rinse] 1 spray PO Q6H PRN #1 bottle 06/21 [Rx] Sennosides/Docusate Sodium [Senna Plus] 2 each PO BID PRN #60 tablet 06/21/17 [ Rx] LORazepam [Ativan] 0.5 mg PO TID 07/12/17 [History] Potassium Chloride [Klor-Con 10] 10 meq PO DAILY 07/12/17 [History] Spironolactone [Aldactone] 25 mg PO DAILY 07/12/17 [History] 3 Allergy/AdvReac Type Severity Reaction Status Date / Time No Known Allergies Allergy Verified 04/08/17 10:06 All Systems Review: A 10-system review of systems was performed and is negative for pertinent findings except as documented above in the HPI. - Constitutional Constitutional: fatigue - Cardiovascular Cardiovascular: as per HPI, dyspnea at rest, dyspnea on exertion, leg edema - Respiratory Respiratory: dyspnea - Gastrointestinal Gastrointestinal: abdominal pain, nausea Physical Examination Vital Signs, Last 4 Hours Resp Pulse Ox 07/13/17 11:17 16 96 Vital Signs Temp Pulse Resp BP Pulse Ox 07/13/17 11:17 16 96 07/13/17 07:40 16 96 07/13/17 06:00 98.2 F 99 15 132/59 94 07/13/17 04:21 98.2 F 91 16 126/64 97 07/13/17 03:50 16 94 07/12/17 23:27 18 97 07/12/17 23:00 98.1 F 91 17 119/54 97 07/12/17 20:26 97.6 F 97 18 143/79 99 07/12/17 20:17 98.7 F 97 18 137/73 98 07/12/17 20:08 18 98 07/12/17 17:43 97.4 F L 91 16 134/66 100 07/12/17 17:28 97.9 F 90 14 125/72 07/12/17 15:21 18 130/70 07/12/17 13:08 97.2 F L 96 15 125/72 96 07/12/17 12:44 97.6 F 88 16 154/100 98 Intake and Output 07/12/17 07/13/17 07/13/17 23:59 07:59 15:59 Intake Total 350 / 350 100 / 100 30.5 / 30.5 Output Total 1000 / 1000 210 / 210 350 / 350 Balance -650 / -650 -110 / -110 -319.5 / -319.5 Intake: IV Fluids 100 / 100 30.5 / 30.5 Protonix 40 MG In 0.9 % Sodium 100 / 100 30.5 / 30.5 Chloride (Mini-Bag +) 100 ML @ 20 mls/hr IVC .Q5H [facility] Rx#: [id number] Oral 0 / 0 0 / 0 0 / 0 Blood Product 350 / 350 Rbcs Leuko Poor As-1 Unit 350 / 350 [id number] Output: Urine 1000 / 1000 200 / 200 350 / 350 Emesis Other: Meal Breakfast Percent of Meal Consumed 0% Weight 65.1 kg 65.1 kg Patient Weight 07/13/17 23:59 Weight 65.1 kg General: Conversant, No Apparent Distress HEENT: Atraumatic, Normocephaly, Mucus Membranes Moist Neck: Normal carotid pulses Cardiac: Reg Rate and Rhythm, Normal S1 and S2, No Murmur Lungs: Other (diminished) Neuro: Alert and responsive, No focal deficits noted Abdomen: Soft, Non-Tender Skin: No rashes noted on visualized skin Musculoskeletal: No Chest Wall Tenderness Extremities: Other (2+ BLE edema) Results 07/13/17 04:59 07/13/17 04:59 Lab Results 07/13/17 07/13/17 04:59 04:59 WBC 13.7 H Hgb 7.7 L Hct 25.4 L Plt Count 403 H Sodium 138 Potassium 3.5 Chloride 100 Carbon Dioxide 30 H BUN 19 Creatinine 0.91 Glucose 116 H Calcium 8.6 Magnesium 1.9 Total Bilirubin 1.7 H AST 18 ALT 13 Alkaline Phosphatase 67 Short CBC 07/13/17 07/13/17 07/12/17 Range/Units 04:59 04:59 13:52 WBC 13.7 H (4.3-11.1) K/mcL RBC 3.39 L (4.19-5.50) M/mcL Hgb 7.7 L (12.9-16.9) g/dL Hct 25.4 L (37.5-50.1) % MCV 74.9 L (83.0-100.0) fL MCH 22.7 L (28.0-33.3) pg MCHC 30.3 L (31.6-35.5) g/dL RDW 20.2 H (11.5-14.5) % Plt Count 403 H (140-400) K/mcL MPV 9.6 (9.4-12.4) fL Immature Gran % 0.5 Seg Neutrophils % 83.0 % Lymphocytes % 6.4 % Monocytes % 10.0 % Eosinophils % 0.0 Basophils % 0.1 % Neutrophils # 11.3 H (1.6-8.9) K/mcL Lymphocytes # 0.9 (0.6-4.6) K/mcL Monocytes # 1.4 H (0.0-1.3) K/mcL Eosinophils # 0.0 Basophils # 0.0 (0.0-0.2) K/mcL Nucleated RBCs/100 WBC 0.4 H (0) /100 WBC Platelet Estimate (Normal) Hypochromasia (Not Present) Anisocytosis (Not Present) PT (9.4-12.1) Seconds INR APTT (26.0-36.0) Seconds Sodium 138 (136-145) mEq/L Potassium 3.5 (3.5-5.1) mEq/L Chloride 100 (98-107) mEq/L Carbon Dioxide 30 H (23-29) mEq/L BUN 19 (8-23) mg/dL Creatinine 0.91 (0.70-1.30) mg/dL Est GFR ( Amer) > 60 (> 60) Est GFR (Non-Af Amer) > 60 (> 60) BUN/Creatinine Ratio 21 (6-26) Glucose 116 H (70-105) mg/dL Calculated Osmolality 289 (280-300) Lactic Acid (0.5-2.2) mmol/L Calcium 8.6 (8.6-10.3) mg/dL Magnesium 1.9 (1.6-2.6) mg/dL Total Bilirubin 1.7 H (0.3-1.0) mg/dL AST 18 (13-39) Units/L ALT 13 (7-52) Units/L Alkaline Phosphatase 67 (34-104) Units/L Troponin I 0.03 (< 0.04) ng/mL Serum Total Protein 6.0 L (6.4-8.9) g/dL Albumin 3.2 L (3.5-5.7) g/dL Globulin 2.8 (2.4-3.5) g/dL Albumin/Globulin Ratio 1.1 (1.1-2.2) Lipase (11-82) Units/L Stool Occult Blood (Negative) 07/12/17 07/12/17 07/12/17 Range/Units 13:52 13:52 13:52 WBC (4.3-11.1) K/mcL RBC (4.19-5.50) M/mcL Hgb (12.9-16.9) g/dL Hct (37.5-50.1) % MCV (83.0-100.0) fL MCH (28.0-33.3) pg MCHC (31.6-35.5) g/dL RDW (11.5-14.5) % Plt Count (140-400) K/mcL MPV (9.4-12.4) fL Immature Gran % Seg Neutrophils % % Lymphocytes % % Monocytes % % Eosinophils % Basophils % % Neutrophils # (1.6-8.9) K/mcL Lymphocytes # (0.6-4.6) K/mcL Monocytes # (0.0-1.3) K/mcL Eosinophils # Basophils # (0.0-0.2) K/mcL Nucleated RBCs/100 WBC (0) /100 WBC Platelet Estimate (Normal) Hypochromasia (Not Present) Anisocytosis (Not Present) PT 14.6 H (9.4-12.1) Seconds INR 1.3 APTT 29.7 (26.0-36.0) Seconds Sodium 138 (136-145) mEq/L Potassium 4.1 (3.5-5.1) mEq/L Chloride 102 (98-107) mEq/L Carbon Dioxide 28 (23-29) mEq/L BUN 20 (8-23) mg/dL Creatinine 0.84 (0.70-1.30) mg/dL Est GFR ( Amer) > 60 (> 60) Est GFR (Non-Af Amer) > 60 (> 60) BUN/Creatinine Ratio 24 (6-26) Glucose 135 H (70-105) mg/dL Calculated Osmolality 291 (280-300) Lactic Acid 1.8 (0.5-2.2) mmol/L Calcium 8.6 (8.6-10.3) mg/dL Magnesium 1.9 (1.6-2.6) mg/dL Total Bilirubin (0.3-1.0) mg/dL AST (13-39) Units/L ALT (7-52) Units/L Alkaline Phosphatase (34-104) Units/L Troponin I (< 0.04) ng/mL Serum Total Protein (6.4-8.9) g/dL Albumin (3.5-5.7) g/dL Globulin (2.4-3.5) g/dL Albumin/Globulin Ratio (1.1-2.2) Lipase 22 (11-82) Units/L Stool Occult Blood (Negative) 07/12/17 07/12/17 Range/Units 13:52 13:20 WBC 11.3 H (4.3-11.1) K/mcL RBC 3.13 L (4.19-5.50) M/mcL Hgb 6.8 L (12.9-16.9) g/dL Hct 23.0 L (37.5-50.1) % MCV 73.5 L (83.0-100.0) fL MCH 21.7 L (28.0-33.3) pg MCHC 29.6 L (31.6-35.5) g/dL RDW 20.7 H (11.5-14.5) % Plt Count 395 (140-400) K/mcL MPV 9.3 L (9.4-12.4) fL Immature Gran % Test Not Performed Seg Neutrophils % 88.0 % Lymphocytes % 4.0 % Monocytes % 6.0 % Eosinophils % Test Not Performed Basophils % 2.0 % Neutrophils # 9.9 H (1.6-8.9) K/mcL Lymphocytes # 0.5 L (0.6-4.6) K/mcL Monocytes # 0.7 (0.0-1.3) K/mcL Eosinophils # Test Not Performed Basophils # 0.2 (0.0-0.2) K/mcL Nucleated RBCs/100 WBC 0.2 H (0) /100 WBC Platelet Estimate Normal (Normal) Hypochromasia Present A (Not Present) Anisocytosis 2+ A (Not Present) PT (9.4-12.1) Seconds INR APTT (26.0-36.0) Seconds Sodium (136-145) mEq/L Potassium (3.5-5.1) mEq/L Chloride (98-107) mEq/L Carbon Dioxide (23-29) mEq/L BUN (8-23) mg/dL Creatinine (0.70-1.30) mg/dL Est GFR ( Amer) (> 60) Est GFR (Non-Af Amer) (> 60) BUN/Creatinine Ratio (6-26) Glucose (70-105) mg/dL Calculated Osmolality (280-300) Lactic Acid (0.5-2.2) mmol/L Calcium (8.6-10.3) mg/dL Magnesium (1.6-2.6) mg/dL Total Bilirubin (0.3-1.0) mg/dL AST (13-39) Units/L ALT (7-52) Units/L Alkaline Phosphatase (34-104) Units/L Troponin I (< 0.04) ng/mL Serum Total Protein (6.4-8.9) g/dL Albumin (3.5-5.7) g/dL Globulin (2.4-3.5) g/dL Albumin/Globulin Ratio (1.1-2.2) Lipase (11-82) Units/L Stool Occult Blood Positive A (Negative) BMP 07/13/17 07/12/17 Range/Units 04:59 13:52 Sodium 138 138 (136-145) mEq/L Potassium 3.5 4.1 (3.5-5.1) mEq/L Chloride 100 102 (98-107) mEq/L Carbon Dioxide 30 H 28 (23-29) mEq/L BUN 19 20 (8-23) mg/dL Creatinine 0.91 0.84 (0.70-1.30) mg/dL Glucose 116 H 135 H (70-105) mg/dL Calcium 8.6 8.6 (8.6-10.3) mg/dL Cardiac Enzymes 07/12/17 Range/Units 13:52 Troponin I 0.03 (< 0.04) ng/mL Liver Function 07/13/17 Range/Units 04:59 Total Bilirubin 1.7 H (0.3-1.0) mg/dL AST 18 (13-39) Units/L ALT 13 (7-52) Units/L Alkaline Phosphatase 67 (34-104) Units/L Albumin 3.2 L (3.5-5.7) g/dL Impressions Chest X-Ray 07/12/17 13:08 IMPRESSION: No change. D/ / Eric Zimmerman MD / Eric Zimmerman MD Interpreting Provider: Eric Zimmerman MD Abdomen X-Ray 07/13/17 08:32 IMPRESSION: 1. Small left pleural effusion. D/ / Harry Saini MD / Harry Saini MD Interpreting Provider: Harry Saini MD Active Medications Acetaminophen (Tylenol) 650 mg PO Q6HR PRN PRN Reason: Mild Pain/Fever Stop: 01/11/18 16:02 Albuterol/Ipratropium (Duoneb) 3 ml IH [id number] KOKI Stop: 01/11/18 20:01 Last Admin: 07/13/17 11:15 Dose: 3 ml Albuterol/Ipratropium (Duoneb) 3 ml IH [id number] PRN PRN Reason: Shortness Of Breath/Wheezing Stop: 01/11/18 16:10 Aspirin (Aspirin Ec) 81 mg PO DAILY KOKI Stop: 01/12/18 09:01 Last Admin: 07/13/17 08:07 Dose: 81 mg Atorvastatin Calcium (Lipitor) 40 mg PO HS KOKI Stop: 01/11/18 21:01 Last Admin: 07/12/17 19:48 Dose: 40 mg Budesonide/Formoterol Fumarate (Symbicort) 1 puff IH BIDR KOKI Stop: 01/11/18 22:01 Last Admin: 07/13/17 07:59 Dose: Not Given Clopidogrel Bisulfate (Plavix) 75 mg PO DAILY KOKI Stop: 01/12/18 09:01 Last Admin: 07/13/17 08:07 Dose: 75 mg Ferrous Sulfate (Ferrous Sulfate) 325 mg PO BIDWM KOKI Stop: 01/11/18 17:01 Last Admin: 07/13/17 08:07 Dose: 325 mg Furosemide (Lasix) 40 mg IVP BID KOKI Stop: 01/11/18 21:01 Last Admin: 07/13/17 08:09 Dose: 40 mg Pantoprazole Sodium 40 mg/ (Sodium Chloride) 100 mls @ 20 mls/hr IVC .Q5H KOKI Stop: 01/12/18 01:46 Last Infusion: 07/13/17 08:22 Dose: 0 mls/hr Lorazepam (Ativan) 0.5 mg PO TID KOKI Stop: 01/11/18 21:01 Last Admin: 07/13/17 08:09 Dose: 0.5 mg Naloxone HCl (Narcan) 0.4 mg IVP Q2MIN PRN PRN Reason: SEE COMMENTS Stop: 01/11/18 16:02 Ondansetron HCl (Zofran) 4 mg IVP Q6HR PRN; Protocol PRN Reason: Nausea Stop: 01/11/18 17:10 Last Admin: 07/13/17 00:11 Dose: 4 mg Promethazine HCl (Phenergan) 12.5 mg IVP Q4HR PRN PRN Reason: Nausea And Vomiting Stop: 01/12/18 01:44 Last Admin: 07/13/17 06:44 Dose: 12.5 mg Saliva Substitute (Biotene Moisturizing Rinse) 1 spray PO Q6H PRN PRN Reason: Dry Mouth Stop: 01/11/18 16:07 Last Admin: 07/12/17 17:26 Dose: 1 spray Senna/Docusate Sodium (Senna Plus) 2 each PO BID PRN; Protocol PRN Reason: Constipation Stop: 01/11/18 16:07 Last Admin: 07/12/17 19:48 Dose: 2 each Spironolactone (Aldactone) 25 mg PO DAILY KOKI Stop: 01/12/18 09:01 Last Admin: 07/13/17 08:09 Dose: 25 mg Tamsulosin HCl (Flomax) 0.4 mg PO BID KOKI PRN Reason: Protocol Stop: 01/11/18 21:01 Last Admin: 07/13/17 08:09 Dose: 0.4 mg - Imaging and Cardiology Echo: report reviewed Cardiac cath: report reviewed - EKG Interpretation EKG results cardiology: personally reviewed Consult Discharge Plan - Plan Referrals: Dane Justin MD [Primary Care Provider] - <Martell Bean - Last Filed: 07/13/17 12:41> Date of Encounter: 07/13/17 - Attending Attestation I have personally performed a face to face evaluation on this patient. I have reviewed and agree with the care plan. History and Exam by me shows: GI bleeding on triple anticoagulant therapy. Could hold xarelto. Will restart amio to hopefully maintain sinus rhythm. Cannot hold antiplatelets due to recent drug coated stent. Assessment and Plan Discussion w patient/family: The assessment and plan as outlined above was discussed with the patient and/or family members who expressed understanding and agreement. All questions were answered. Thank you for involving us in the care of your patient. Please call with any questions. History of Present Illness History of present illness: Mr. Yeung is a 82 year old male All Systems Review: A 10-system review of systems was performed and is negative for pertinent findings except as documented above in the HPI. Physical Examination Vital Signs, Last 4 Hours Resp Pulse Ox 07/13/17 11:17 16 96 Results 07/13/17 04:59 07/13/17 04:59 Lab Results 07/13/17 07/13/17 04:59 04:59 WBC 13.7 H Hgb 7.7 L Hct 25.4 L Plt Count 403 H Sodium 138 Potassium 3.5 Chloride 100 Carbon Dioxide 30 H BUN 19 Creatinine 0.91 Glucose 116 H Calcium 8.6 Magnesium 1.9 Total Bilirubin 1.7 H AST 18 ALT 13 Alkaline Phosphatase 67
--- NOTE | 2017-07-13 13:41 | General Surgery Progress Note ---
<Carlita Mccabe - Last Filed: 07/13/17 13:38> Date of Encounter: 07/13/17 Time of Encounter: 09:00 - Assessment and Plan (1) Anemia Current Visit: Yes Status: Acute As previously noted per Dr. Swanson, The patient will require EGD and colonoscopy. Currently he is vomiting and anemic. I would like to see him transfused him hydrated and have overall improvement in his condition prior to endoscopy. I will be glad to follow along with you. We will provide EGD and colonoscopy wound patient stabilizes. He reports increased abdominal discomfort today, vomiting of that bright red blood, and nausea. His abdomen is distended and firm but not rigid. Bowel sounds are absent. To view abdominal x-ray with nonspecific bowel gas pattern. Plan: place NG tube to low intermittent wall suction KUB after NG tube placement stat CT of the abdomen and pelvis without contrast. Further recommendations pending. H&H/transfusions per primary team. Surgery will continue to follow along with you. Qualifiers: Anemia type: iron deficiency Iron deficiency anemia type: unspecified iron deficiency Qualified Code(s): D50.9 - Iron deficiency anemia, unspecified Subjective Patient reports: still having pain, voiding w/o difficulty, no flatus, no bowel movement, nausea, vomiting, afebrile Objective Vital Signs - Last 8 Hours Temp Pulse Resp BP Pulse Ox 07/13/17 11:17 16 96 07/13/17 07:40 16 96 07/13/17 06:00 98.2 F 99 15 132/59 94 Intake and Output 07/12/17 07/13/17 07/13/17 23:59 07:59 15:59 Intake Total 350 / 350 100 / 100 30.5 / 30.5 Output Total 1000 / 1000 210 / 210 350 / 350 Balance -650 / -650 -110 / -110 -319.5 / -319.5 Intake: IV Fluids 100 / 100 30.5 / 30.5 Protonix 40 MG In 0.9 % Sodium 100 / 100 30.5 / 30.5 Chloride (Mini-Bag +) 100 ML @ 20 mls/hr IVC .Q5H [facility] Rx#: [id number] Oral 0 / 0 0 / 0 0 / 0 Blood Product 350 / 350 Rbcs Leuko Poor As-1 Unit 350 / 350 [id number] Output: Urine 1000 / 1000 200 / 200 350 / 350 Emesis Other: Meal Breakfast Percent of Meal Consumed 0% Weight 65.1 kg 65.1 kg Patient Weight 07/13/17 23:59 Weight 65.1 kg - General physical appearance moderate pain, other (Sitting upright in chair at bedside) - ENT atraumatic, normocephalic, Other (hoarseness noted) - Neck Neck exam: trachea midline, no venous distension - Respiratory other (Decreased) - Cardiovascular Cardiovascular exam: Present: RRR - Abdomen Abdomen: Present: distended, tender. Absent: bowel sounds present (Absent), soft (Firm) Abdominal Tenderness: diffusely - Integumentary no abnormal pigmentation - Neurologic normal coordination, normal sensation - Musculoskeletal normal posture - Psychiatric oriented to time, oriented to person, oriented to place, speech is normal, memory intact - Labs 07/13/17 04:59 07/13/17 04:59 Diabetes panel 07/13/17 Range/Units 04:59 Sodium 138 (136-145) mEq/L Potassium 3.5 (3.5-5.1) mEq/L Chloride 100 (98-107) mEq/L Carbon Dioxide 30 H (23-29) mEq/L BUN 19 (8-23) mg/dL Creatinine 0.91 (0.70-1.30) mg/dL Glucose 116 H (70-105) mg/dL Calcium 8.6 (8.6-10.3) mg/dL AST 18 (13-39) Units/L ALT 13 (7-52) Units/L Alkaline Phosphatase 67 (34-104) Units/L Albumin 3.2 L (3.5-5.7) g/dL Calcium panel 07/13/17 Range/Units 04:59 Calcium 8.6 (8.6-10.3) mg/dL Albumin 3.2 L (3.5-5.7) g/dL Pituitary panel 07/13/17 Range/Units 04:59 Sodium 138 (136-145) mEq/L Potassium 3.5 (3.5-5.1) mEq/L Chloride 100 (98-107) mEq/L Carbon Dioxide 30 H (23-29) mEq/L BUN 19 (8-23) mg/dL Creatinine 0.91 (0.70-1.30) mg/dL Glucose 116 H (70-105) mg/dL Calcium 8.6 (8.6-10.3) mg/dL Adrenal panel 07/13/17 Range/Units 04:59 Sodium 138 (136-145) mEq/L Potassium 3.5 (3.5-5.1) mEq/L Chloride 100 (98-107) mEq/L Carbon Dioxide 30 H (23-29) mEq/L BUN 19 (8-23) mg/dL Creatinine 0.91 (0.70-1.30) mg/dL Glucose 116 H (70-105) mg/dL Calcium 8.6 (8.6-10.3) mg/dL Total Bilirubin 1.7 H (0.3-1.0) mg/dL AST 18 (13-39) Units/L ALT 13 (7-52) Units/L Alkaline Phosphatase 67 (34-104) Units/L Albumin 3.2 L (3.5-5.7) g/dL - VTE Reasons for not Prescribing Prophylaxis: Not indicated-Anticoagulated or INR therapeutic Consult Discharge Plan - Plan Referrals: Dane Justin MD [Primary Care Provider] - <Dane Swanson - Last Filed: 07/13/17 19:31> Date of Encounter: 07/13/17 - Assessment and Plan (1) Anemia Current Visit: Yes Status: Acute Qualifiers: Anemia type: iron deficiency Iron deficiency anemia type: unspecified iron deficiency Qualified Code(s): D50.9 - Iron deficiency anemia, unspecified Objective Vital Signs - Last 8 Hours Temp Pulse Resp BP Pulse Ox 07/13/17 18:46 99.2 F 97 14 112/54 97 07/13/17 18:31 99.6 F 97 20 121/60 94 Intake and Output 07/13/17 07/13/17 07/13/17 07:59 15:59 23:59 Intake Total 100 / 100 30.5 / 30.5 0 / 0 Output Total 210 / 210 1300 / 1300 400 / 400 Balance -110 / -110 -1269.5 / -1269.5 -400 / -400 Intake: IV Fluids 100 / 100 30.5 / 30.5 Protonix 40 MG In 0.9 % Sodium 100 / 100 30.5 / 30.5 Chloride (Mini-Bag +) 100 ML @ 20 mls/hr IVC .Q5H [facility] Rx#: [id number] Oral 0 / 0 0 / 0 0 / 0 Blood Product 0 / 0 Rbcs Leuko Poor As-1 Unit 0 / 0 [id number] Output: Urine 200 / 200 350 / 350 400 / 400 Emesis 10 Gastric Tube Lavage Amount 950 / 950 Right Nare 950 / 950 Other: Meal Breakfast Dinner Percent of Meal Consumed 0% 0% # Voids 1 Weight 65.1 kg Patient Weight 07/13/17 23:59 Weight 65.1 kg - Labs 07/13/17 04:59 07/13/17 04:59 Diabetes panel 07/13/17 Range/Units 04:59 Sodium 138 (136-145) mEq/L Potassium 3.5 (3.5-5.1) mEq/L Chloride 100 (98-107) mEq/L Carbon Dioxide 30 H (23-29) mEq/L BUN 19 (8-23) mg/dL Creatinine 0.91 (0.70-1.30) mg/dL Glucose 116 H (70-105) mg/dL Calcium 8.6 (8.6-10.3) mg/dL AST 18 (13-39) Units/L ALT 13 (7-52) Units/L Alkaline Phosphatase 67 (34-104) Units/L Albumin 3.2 L (3.5-5.7) g/dL Calcium panel 07/13/17 Range/Units 04:59 Calcium 8.6 (8.6-10.3) mg/dL Albumin 3.2 L (3.5-5.7) g/dL Pituitary panel 07/13/17 Range/Units 04:59 Sodium 138 (136-145) mEq/L Potassium 3.5 (3.5-5.1) mEq/L Chloride 100 (98-107) mEq/L Carbon Dioxide 30 H (23-29) mEq/L BUN 19 (8-23) mg/dL Creatinine 0.91 (0.70-1.30) mg/dL Glucose 116 H (70-105) mg/dL Calcium 8.6 (8.6-10.3) mg/dL Adrenal panel 07/13/17 Range/Units 04:59 Sodium 138 (136-145) mEq/L Potassium 3.5 (3.5-5.1) mEq/L Chloride 100 (98-107) mEq/L Carbon Dioxide 30 H (23-29) mEq/L BUN 19 (8-23) mg/dL Creatinine 0.91 (0.70-1.30) mg/dL Glucose 116 H (70-105) mg/dL Calcium 8.6 (8.6-10.3) mg/dL Total Bilirubin 1.7 H (0.3-1.0) mg/dL AST 18 (13-39) Units/L ALT 13 (7-52) Units/L Alkaline Phosphatase 67 (34-104) Units/L Albumin 3.2 L (3.5-5.7) g/dL - Attending Attestation I have personally performed a face to face evaluation on this patient. I have reviewed and agree with the care plan. History and Exam by me shows: The patient was seen and evaluated with the clinical nurse practitioner and resting on morning rounds. His abdomen was distended and painful. I made the decision to place a nasogastric tube and obtain a CAT scan of the abdomen. Certainly if a bowel obstruction is present this would take precedence over workup of his upper GI bleed. He will be seen later today in follow-up after further radiologic testing. Dane Swanson MD FACS
[2017-07-13] MEDS ORDERED: *HR* Amiodarone 200 MG TABLET PO SCH (13:45)
--- NOTE | 2017-07-13 14:39 | Internal Med Progress Note ---
Date of Encounter: 07/13/17 Time of Encounter: 14:37 - Assessment and plan (1) GI bleed Current Visit: Yes Status: Acute Assessment and plan: 82/male Multiple comorbid conditions: Hypertension/hyperlipidemia/A. fib/coronary artery disease with recent 2 stents Anticoagulant: Aspirin/Plavix/Xarelto Came to emergency room yesterday with worsening vomiting along with progressively dark stool for the past few days. Noted that patient's hemoglobin was less than 7. Stool guaiac was positive Evaluated by surgery/cardiology. Surgery: IV PPI/blood transfusions/NG placement/CT abdomen and pelvis/close monitoring/nothing by mouth/plan for endoscopy when patient is more stable Cardiology: Continue aspirin/Plavix to prevent stent stenosis/thrombosis. May discontinue Xarelto plan Surgery/cardiology recommendations appreciated will follow recommendations from Surg and cardiology. Blood transfusion ordered. Labs for tomorrow morning Qualifiers: GI bleed type/associated pathology: gastritis Gastritis type: unspecified gastritis Qualified Code(s): K29.71 - Gastritis, unspecified, with bleeding (2) CAD (coronary artery disease) Current Visit: Yes Status: Chronic Assessment and plan: see above Qualifiers: Coronary Disease-Associated Artery/Lesion type: pilot station artery [place] vs. transplanted heart: pilot station heart Associated angina: without angina Qualified Code(s): I25.10 - Atherosclerotic heart disease of [place] coronary artery without angina pectoris (3) Hypertension Current Visit: No Status: Chronic Assessment and plan: hold antiHTN in view o possible hypoperfusion. Qualifiers: Hypertension type: essential hypertension Qualified Code(s): I10 - Essential (primary) hypertension (4) DVT prophylaxis Current Visit: No Status: Acute Assessment and plan: scd Medical decision making: This patient has a moderate to severe risk of worsening in spite of being on appropriate medications due to the underlying multiple comorbid conditions. - Subjective Interval history: Patient seen and examined. Chart reviewed. Patient is comfortably sitting up in a chair. Patient still has abdominal pain is mainly in epigastric region. Patient denies any chest pain, shortness of breath, dizziness and diarrhea. - Constitutional Vitals: Temp Pulse Resp BP Pulse Ox 98.2 F 99 16 132/59 96 07/13/17 06:00 07/13/17 06:00 07/13/17 11:17 07/13/17 06:00 02/03/18 11:17 General appearance: Present: mild distress, A&O X 3 - Head Head exam: Present: atraumatic, normocephalic - Eye Eye exam: Present: PERRL, conjuntiva pink, sclera anicteric Pupils: Present: PERRL - Neck Neck exam general surgery: Present: supple, trachea midline. Absent: lymphadenopathy - Respiratory Respiratory exam: Present: CTAB. Absent: accessory muscle use, rales, rhonchi, wheezes - Cardiovascular Cardiovascular exam: Present: RRR, +S1, +S2. Absent: diastolic murmur, gallop, rubs, systolic murmur - GI/Abdominal GI/Abdominal exam: Present: normal bowel sounds, soft, no peritoneal signs. Absent: distended, tenderness - Extremities Exam Extremities exam: Present: warm, radial pulses palpable and symmetrical. Absent : calf tenderness, cyanotic, pedal edema - Neurological Exam Neurological exam: Present: CN II-XII intact, oriented X3, no focal deficits. Absent: pronater drift, facial droop, speech deficit - Skin Skin exam: Present: dry, intact Internal Medicine: Result - Labs CBC & Chem 7: 07/13/17 04:59 07/13/17 04:59 Labs: Short CBC 07/13/17 Range/Units 04:59 WBC 13.7 H (4.3-11.1) K/mcL Hgb 7.7 L (12.9-16.9) g/dL Hct 25.4 L (37.5-50.1) % Plt Count 403 H (140-400) K/mcL Neutrophils # 11.3 H (1.6-8.9) K/mcL BMP 07/13/17 04:59 Sodium 138 Potassium 3.5 Chloride 100 Carbon Dioxide 30 H BUN 19 Creatinine 0.91 Glucose 116 H Calcium 8.6 Liver Function 07/13/17 Range/Units 04:59 Total Bilirubin 1.7 H (0.3-1.0) mg/dL AST 18 (13-39) Units/L ALT 13 (7-52) Units/L Alkaline Phosphatase 67 (34-104) Units/L Albumin 3.2 L (3.5-5.7) g/dL - ABG Interpretation ABG results: PT/INR, D-dimer PT 14.6 Seconds (9.4-12.1) H 07/12/17 13:52 - Impressions Impressions Abdomen X-Ray 07/13/17 08:32 IMPRESSION: 1. Small left pleural effusion. D/ / Harry Saini MD / Harry Saini MD Interpreting Provider: Harry Saini MD X-Ray 07/13/17 12:04 IMPRESSION: Status post NG tube placement with side hole at the GE junction. The findings were sent to the Radiology Results Communication Center at 1:22 pm on 07/13/2017to be communicated to a licensed caregiver. RECOMMENDATION: Recommend advancement of NG tube by approximately 5 cm. D/ / Marion Carvajal MD / Marion Carvajal MD Interpreting Provider: Marion Carvajal MD - VTE Reasons for not Prescribing Prophylaxis: Not indicated-Anticoagulated or INR therapeutic Consult Discharge Plan - Plan Referrals: Dane Justin MD [Primary Care Provider] -
[2017-07-13] MEDS ORDERED: 0.9 % Sodium Chloride 1,000 ML IVC SCH (17:30)
[2017-07-13] MEDS ORDERED: 0.9 % Sodium Chloride 1,000 ML IVC ONE (17:38)
[2017-07-13] MEDS: *HR* LORazepam 2 MG/ML VIAL IVP SCH (17:58)
[2017-07-13] MEDS ORDERED: 0.9 % Sodium Chloride 500 ML ONE (18:14)
[2017-07-13] MEDS ORDERED: *HR* Propofol 200 MG/20 ML VIAL IVP ONE (19:05)
[2017-07-13] MEDS ORDERED: *HR* FentaNYL (PF) 100 MCG/2 ML VIAL ONE (19:05)
[2017-07-13] MEDS ORDERED: Lidocaine -MPF 2% 2 ML VIAL ONE (19:06)
[2017-07-13] MEDS ORDERED: *HR* Rocuronium Bromide 50 MG/5 ML VIAL ONE (19:06)
[2017-07-13] MEDS ORDERED: *HR* Succinylcholine 200 MG/10 ML VIAL IVP ONE (19:06)
--- NOTE | 2017-07-13 19:20 | Event Note ---
Date of Encounter: 07/13/17 Time of Encounter: 19:00 During rounds earlier today the patient's abdomen was much more distended. He was having nausea and vomiting. He clinically appeared to have bowel obstruction. I ordered a CAT scan placed nasogastric tube. He got 1800 mL out of the nasogastric tube was some relief of his discomfort. The CAT scan demonstrated small bowel obstruction with a transition point in the area of the right inguinal hernia repair, however, I disagree that this is in the right inguinal hernia. I believe that the point of obstruction is in the midline hernia sac. The patient has previously had right inguinal hernia repair. 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 The area of incarceration is in the suprapubic area and there is also a graft in this area. I believe the best approach is to perform midline laparotomy and lysis of adhesions. We will proceed on an urgent basis. I discussed this with his family. It is unclear how this relates to his bleeding episode. I believe that the bowel obstruction takes priority over workup for his upper GI bleeding
--- NOTE | 2017-07-13 19:20 | Anesthesia Evaluation PreOp ---
Date of Encounter: 07/13/17 Time of Encounter: 20:18 - Past History Planned Operation: Exploratory Laparotomy Cardiac History: [place], CHF, HTN, Hyperlipidemia, Arrhythmia (paroxysmal A-Fib), Cardiac Stent (JATINDER to pLAD 06/19/2017, stent x 2 in 2002), Other (cardiomyopathy) Pulmonary History: Asthma, COPD (home O2 2.5-3L/NC) MERCHANDISING STOCK ASSOCIATE History: Denies Any Significant HX Other Medical History: Bleeding (GI bleed wth anemia), GERD Anesthesia History: No Prior Anesthetic Complications, Past Anesthesia (Right thrombectomy fem/fem bypass graft 01/03/2014; Fem/Fem bypass 2006; left fem/pop bypass 1994) Alcohol Use: none Drug use: none Medications and Allergies Clopidogrel [Plavix] 75 mg PO DAILY 01/25/16 [History] Omeprazole [PriLOSEC] 20 mg PO DAILY 01/25/16 [History] Atorvastatin [Lipitor] 40 mg PO HS 07/17/16 [History] Aspirin Enteric Coated [Aspirin EC] 81 mg PO DAILY #30 tablet. 07/27/16 [Rx] Fluticasone/Salmeterol [Advair 500-50 Diskus] 1 each IH BID 04/08/17 [History] Ipratropium/Albuterol Neb [Duoneb] 3 ml IH Q4-6H PRN 06/14/17 [History] Nitroglycerin [Nitrostat] 0.4 mg PO Q5M PRN 06/14/17 [History] Tamsulosin [Flomax] 0.4 mg PO BID 06/14/17 [History] Furosemide [Lasix] 40 mg PO BID #120 tablet 06/21/17 [Rx] Rivaroxaban [Xarelto] 20 mg PO 1700 #60 tablet 06/21/17 [Rx] Saliva Stimulant [Biotene Moisturizing Rinse] 1 spray PO Q6H PRN #1 bottle 06/21 [Rx] Sennosides/Docusate Sodium [Senna Plus] 2 each PO BID PRN #60 tablet 06/21/17 [ Rx] LORazepam [Ativan] 0.5 mg PO TID 07/12/17 [History] Potassium Chloride [Klor-Con 10] 10 meq PO DAILY 07/12/17 [History] Spironolactone [Aldactone] 25 mg PO DAILY 07/12/17 [History] 3 Allergy/AdvReac Type Severity Reaction Status Date / Time No Known Allergies Allergy Verified 04/08/17 10:06 - Meds/Allergy Pre-op Review Medications Reviewed: Yes Allergies Reviewed: Yes Beta Blockers on Current Med List: No Anesthesia Results - Labs 07/13/17 04:59 07/13/17 04:59 - Imaging EKG: report reviewed (07/12/2017 SR, NSST ABNORMALITY 06/14/2017 ATRIAL FIBRILLATION WITH RAPID VENTRICULAR RESPONSE BASELINE ARTIFACT COMPLICATES ACCURATE INTERPRETATION) Additional studies: 06/19/2017 Procedures Performed: Transradial access LEFT HEART CATH Stent w/ PTCA Single Major Vessel (JATINDER Synergy 3.0, proximal portion postdilated with 3.5 NC) IV Doppler BLD Flow 1st Vessel Indications: Unstable Angina - hospitalized, Systolic congestive heart failure Impressions: There is severe one vessel coronary artery disease. There is severe LV Dysfunction EF 15% with primarily nonischemic cardiomyopathy Patient had successful PTCA/Drug-Eluting Stent placement in the proximal LAD. FFR Measurement: 0.8 measured at the distal portion of the proximal LAD FFR Measurement: 0.75 in the Distal LAD 06/15/2017 Echo Impressions: LVEF 35-40%. Moderate global and segmental left ventricular systolic dysfunction. Severe pulmonary hypertension. No significant valvular dysfunction. Anesthesia Exam Vital Signs/O2 Sat, Most Current Temp Pulse Resp BP Pulse Ox 99.2 F 97 14 112/54 97 07/13/17 18:46 07/13/17 18:46 07/13/17 18:46 07/13/17 18:46 07/13/17 18:46 Height: 5'10"/1.78 m Weight: 143 lbs/65 kg NPO (# of Hours): 8 Pain Scale: 0 Pain Scale Used: Numeric (1 - 10) - HEENT Pupil (Motor): EOMI Mallampati: II Teeth: Normal Oral Opening: Greater than 3 - MERCHANDISING STOCK ASSOCIATE LOC: Oriented MERCHANDISING STOCK ASSOCIATE Motor: Normal RUE, Normal LUE, Normal RLE, Normal LLE, Normal Face [employer]CH[employer]ISING STOCK ASSOCIATE Sensory: Normal: RUE, LUE, RLE, LLE, Face - Cardiac Rhythm: Regular Murmur: None - Pulmonary Breath Sounds: bilateral Clear Respiratory Effort: Symmetrical Anesthesia Assess/Plan ASA Score: 4 (Patient and family understand that patient is at increased risk for perioperative complications including myocardial infarct, arrhythmias, CVA, post op vent support/ICU stay, and . Patient and family wish to proceed.) , E Modified [place] Scale for Level of Consciousness: Cooperative, oriented, and tranquil Anesthetic Plan: General Monitoring Plan: Standard Monitors Recovery Plan: PACU
[2017-07-13] MEDS ORDERED: CeFAZolin Syr 2,000MG/20 ML 2,000 MG/20 ML SYRINGE IVPB ONE (19:47)
[2017-07-13] MEDS ORDERED: CefOXitin 1,000 MG VIAL ONE (19:50)
[2017-07-13] MEDS ORDERED: Ringers Solution, Lactated 500 ML IVC SCH (21:15)
[2017-07-13] MEDS ORDERED: Dexamethasone 4 MG/ML VIAL ONE (21:24)
[2017-07-13] MEDS ORDERED: Ondansetron 4 MG/2 ML VIAL ONE (21:24)
[2017-07-13] MEDS ORDERED: Neostigmine Methylsulfate 3 MG/3 ML SYRINGE ONE (21:42)
--- NOTE | 2017-07-13 22:05 | Operative Note ---
Date of procedure: 07/13/17 Pre-op diagnosis: Small bowel obstruction and incisional hernia Post-op diagnosis: same Procedure: #1 repair of incisional hernia #2 small bowel resection Anesthesia: NAKITAA Surgeon: Dane Swanson Was there an assistant men's lacrosse coach present: Yes Fountain Dispenser: Celia Worley Estimated blood loss (cc): 25 Specimen: Small bowel Condition: stable Disposition: PACU Procedure in Detail: After informed consent the patient was taken to the major operating suite placed in the supine position given adequate general anesthetic. The abdomen is prepped and draped in sterile fashion using ChloraPrep standard draping techniques. Timeout was taken and the patient was identified. I made a vertical midline incision lower part of the abdomen. I divided the bottom third of the previously placed mesh. I divided the virgin midline tissue between the mesh and the suprapubic area. During this division I encountered a hernia sac with a very small incisional hernia opening small bowel protruded through this small incisional hernia and was incarcerated in the pre-pubic tissues. This was densely scarred. I carefully free the overlying scar tissue until I was able to mobilize the small bowel out of the subcutaneous tissue. When I did this it was obvious that there was a major point of obstruction that had resulted in transmural necrosis but no perforation. I plan to resect this area. I resected the hernia sac from the subcutaneous tissue. The small bowel was divided with JESSICA proximal and distal to the area previously identified as transmural necrosis. I resected about 10 cm of small bowel. The mesentery was divided between clamps and hemostatic ligatures. I created a functional end-to- end anastomosis with JESSICA and the resulting enterotomy was closed with a TA 60. I circumferentially reinforced the staple line with 3-0 silk and I closed the opening in the mesentery with 3-0 silk. This gave an excellent technical result. The abdomen was irrigated with copious amounts of antibiotic containing solution. The midline was closed with interrupted [address] as to completely close the incisional hernia as well as the previously placed mesh. It is noted that there were absolutely no adhesions to the posterior aspect of the previously placed mesh. The skin was reapproximated with interrupted 2-0 Vicryl and skin clips. He tolerated the procedure well.
--- NOTE | 2017-07-13 22:33 | Anesthesia Evaluation Post Op ---
Date of Encounter: 07/13/17 Time of Encounter: 22:32 - Vital Signs Vital Signs: Vital Signs/O2 Sat, Most Current Temp Pulse Resp BP Pulse Ox 100.8 F H 99 20 141/75 93 07/13/17 22:13 07/13/17 22:23 07/13/17 22:23 07/13/17 22:23 07/13/17 22:23 - Lungs Lungs: Clear Ascult./Percussion - Airway Airway: Non-obstructed - Cardiovascular Regular Rate - Mental Status Mental Status: Asleep with brisk response to light stimulation - Pain Pain Scale: 0 Pain Scale used: Numeric (1 - 10) - Nausea Vomiting Nausea Vomiting: Not Present - Hydration Hydration: NPO, Ta catheter - Discharge PostOp Status: Transfer Patient to floor
[2017-07-13] MEDS: 0.9 % Sodium Chloride 1,000 ML IVC SCH (23:35)
[2017-07-14] MEDS: cefOXitin 2,000 MG in Water for inj. (sterile) 20 ML 10 ML IVP SCH ×2 (00:19→09:58)
[2017-07-14] MEDS: OXYCODONE Oral CONC 10 MG/0.5 ML ORAL.SYG SL PRN ×2 (04:06→23:29)
[2017-07-14 04:36] LABS: Hematocrit 29.4 % (37.5-50.1); Hemoglobin 8.8 g/dL (12.9-16.9); Immature Granulocytes % 0.4 % (0-4); Lymphocytes # 0.3 K/mcL (0.6-4.6); Lymphocytes % 2.4 %; Mean Corpuscular HGB Conc 29.9 g/dL (31.6-35.5); Mean Corpuscular Hemoglobin 23.2 pg (28.0-33.3); Mean Corpuscular Volume 77.6 fL (83.0-100.0); Mean Platelet Volume 9.7 fL (9.4-12.4); Monocytes % 6.9 %; Neutrophils # 12.7 K/mcL (1.6-8.9); Nucleated Red Blood Cells 0.4 /100 WBC (0); Platelet Count 370 K/mcL (140-400); Red Blood Count 3.79 M/mcL (4.19-5.50); Red Cell Distribution Width 20.7 % (11.5-14.5); Segmented Neutrophils % 90.3 %
[2017-07-14 04:56] LABS: Alanine Aminotransferase 12 Units/L (7-52); Albumin 2.8 g/dL (3.5-5.7); Albumin/Globulin Ratio 1.1 (1.1-2.2); Alkaline Phosphatase 55 Units/L (34-104); Aspartate Amino Transferase 20 Units/L (13-39); BUN/Creatinine Ratio 26 (6-26); Bilirubin,Total 1.3 mg/dL (0.3-1.0); Blood Urea Nitrogen 22 mg/dL (8-23); Calcium 8.2 mg/dL (8.6-10.3); Carbon Dioxide 26 mEq/L (23-29); Chloride 104 mEq/L (98-107); Globulin 2.6 g/dL (2.4-3.5); Glucose 69 mg/dL (70-105); Osmolality,Calculated 292 (280-300); Potassium 3.7 mEq/L (3.5-5.1); Sodium 140 mEq/L (136-145); Total Protein 5.4 g/dL (6.4-8.9); eGFR For African Americans > 60 (> 60); eGFR For Non-African Americans > 60 (> 60)
[2017-07-14] MEDS ORDERED: *HR* Heparin 5,000 UNIT/ML VIAL SQ SCH (06:00)
[2017-07-14] MEDS ORDERED: Acetaminophen 650 MG RECTAL SUPP RC ONE (06:57)
[2017-07-14] MEDS: Pantoprazole 40 MG VIAL IVP SCH (09:58)
--- NOTE | 2017-07-14 10:14 | Electrocardiograph Report ---
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
--- NOTE | 2017-07-14 10:48 | General Surgery Progress Note ---
<Nancy Lowe - Last Filed: 07/14/17 10:45> Date of Encounter: 07/14/17 Time of Encounter: 10:46 - Assessment and Plan (1) Status post small bowel resection Current Visit: Yes Status: Acute Date of procedure: 07/13/17 Pre-op diagnosis: Small bowel obstruction and incisional hernia Post-op diagnosis: same Procedure: #1 repair of incisional hernia #2 small bowel resection Anesthesia: GETA Surgeon: Dane Swanson POD 1, as above. -NPO while awaiting return of bowel function. -IVF -NG tube to low intermittent wall suction -Adequate pain control to support post-operative rehabilitation -Aggressive pulmonary toilet -Encourage incentive spirometry use frequently -Continue GI prophylaxis -Continue DVT prophylaxis (2) Anemia Current Visit: Yes Status: Acute 2/ Hgb 8.8. 2/3: 7.7 Multiple comorbid conditions: Hypertension/hyperlipidemia/A. fib/coronary artery disease with recent 2 stents Anticoagulant: Aspirin/Plavix/Xarelto Stool guaiac was positive Will eventually require EGD and colonoscopy, however pre-eminently will need to be stabilized from recovery of bowel obstruction H&H/transfusions per primary team. Surgery will continue to follow along with you. Qualifiers: Anemia type: iron deficiency Iron deficiency anemia type: unspecified iron deficiency Qualified Code(s): D50.9 - Iron deficiency anemia, unspecified Subjective Patient reports: no new complaints Objective Physical exam performed by Dane Swanson MD and dictated as noted below: Vital Signs - Last 8 Hours Temp Pulse Resp BP Pulse Ox 07/14/17 10:24 100.5 F H 89 14 122/59 96 07/14/17 07:07 100.7 F H 95 14 114/53 93 07/14/17 06:44 100.3 F H 07/14/17 03:32 100.4 F H 91 18 112/56 96 Intake and Output 07/13/17 07/14/17 07/14/17 23:59 07:59 15:59 Intake Total 0 / 0 0 / 0 Output Total 675 / 675 250 / 250 150 / 150 Balance -675 / -675 -240 / -240 -150 / -150 Intake: IV Fluids Mefoxin 2,000 MG In Water for inj. (sterile) 10 ML @ 150 mls/ hr IVP Q8HR [facility] Rx#:[id number] Oral 0 / 0 0 / 0 Blood Product 0 / 0 Rbcs Leuko Poor As-1 Unit 0 / 0 [id number] Output: Urine 500 / 500 Estimated Blood Loss 25 / 25 Catheter 200 / 200 150 / 150 Gastric Drainage 150 / 150 50 / 50 Right Nare 150 / 150 50 / 50 Other: Meal Dinner Breakfast Percent of Meal Consumed 0% 0% # Voids 1 Weight 67.8 kg Blood Glucose* 70 Patient Weight 07/14/17 23:59 Weight 67.8 kg - General physical appearance no distress - Respiratory other (coarse rhonchi both sides ) - Abdomen Abdomen: Present: soft, tender (expected post-op tenderness ) Additional Comments: Hypoactive bowel sounds. - Incision Incision: Present: clean and dry (dressing) - Labs 07/14/17 03:51 07/14/17 03:51 Diabetes panel 07/14/17 Range/Units 03:51 Sodium 140 (136-145) mEq/L Potassium 3.7 (3.5-5.1) mEq/L Chloride 104 (98-107) mEq/L Carbon Dioxide 26 (23-29) mEq/L BUN 22 (8-23) mg/dL Creatinine 0.86 (0.70-1.30) mg/dL Glucose 69 L (70-105) mg/dL Calcium 8.2 L (8.6-10.3) mg/dL AST 20 (13-39) Units/L ALT 12 (7-52) Units/L Alkaline Phosphatase 55 (34-104) Units/L Albumin 2.8 L (3.5-5.7) g/dL Calcium panel 07/14/17 Range/Units 03:51 Calcium 8.2 L (8.6-10.3) mg/dL Albumin 2.8 L (3.5-5.7) g/dL Pituitary panel 07/14/17 Range/Units 03:51 Sodium 140 (136-145) mEq/L Potassium 3.7 (3.5-5.1) mEq/L Chloride 104 (98-107) mEq/L Carbon Dioxide 26 (23-29) mEq/L BUN 22 (8-23) mg/dL Creatinine 0.86 (0.70-1.30) mg/dL Glucose 69 L (70-105) mg/dL Calcium 8.2 L (8.6-10.3) mg/dL Adrenal panel 07/14/17 Range/Units 03:51 Sodium 140 (136-145) mEq/L Potassium 3.7 (3.5-5.1) mEq/L Chloride 104 (98-107) mEq/L Carbon Dioxide 26 (23-29) mEq/L BUN 22 (8-23) mg/dL Creatinine 0.86 (0.70-1.30) mg/dL Glucose 69 L (70-105) mg/dL Calcium 8.2 L (8.6-10.3) mg/dL Total Bilirubin 1.3 H (0.3-1.0) mg/dL AST 20 (13-39) Units/L ALT 12 (7-52) Units/L Alkaline Phosphatase 55 (34-104) Units/L Albumin 2.8 L (3.5-5.7) g/dL - VTE Reasons for not Prescribing Prophylaxis: Not indicated-Anticoagulated or INR therapeutic Documentation of Mechanical Device: Graduated compression elastic hosiery Consult Discharge Plan - Plan Referrals: Dane Justin MD [Primary Care Provider] - <Dane Swanson - Last Filed: 07/16/17 08:29> Date of Encounter: 07/14/17 - Assessment and Plan (1) Anemia Current Visit: Yes Status: Acute Qualifiers: Anemia type: iron deficiency Iron deficiency anemia type: unspecified iron deficiency Qualified Code(s): D50.9 - Iron deficiency anemia, unspecified Objective Vital Signs - Last 8 Hours Temp Pulse Resp BP Pulse Ox 07/16/17 08:08 16 98 07/16/17 07:54 98.5 F 86 18 126/66 96 07/16/17 05:28 98.6 F 89 17 126/69 97 Intake and Output 07/15/17 07/16/17 07/16/17 23:59 07:59 15:59 Intake Total 0 / 0 1000 / 1000 Output Total 575 / 575 Balance -575 / -575 1000 / 1000 Intake: IV Fluids 1000 / 1000 D5% And 0.45% Nacl 1000 Ml Bag 1000 / 1000 1,000 ML @ 75 mls/hr IVC . [id number] [facility] Rx#:[id number] Oral 0 / 0 Output: Urine 175 / 175 Catheter 400 / 400 Other: Blood Glucose* 100 111 - Labs 07/16/17 00:12 07/16/17 00:12 Diabetes panel 07/16/17 Range/Units 00:12 Sodium 144 (136-145) mEq/L Potassium 3.6 (3.5-5.1) mEq/L Chloride 112 H (98-107) mEq/L Carbon Dioxide 29 (23-29) mEq/L BUN 25 H (8-23) mg/dL Creatinine 0.75 (0.70-1.30) mg/dL Glucose 97 (70-105) mg/dL Calcium 8.1 L (8.6-10.3) mg/dL AST 50 H (13-39) Units/L ALT 16 (7-52) Units/L Alkaline Phosphatase 53 (34-104) Units/L Albumin 2.4 L (3.5-5.7) g/dL Calcium panel 07/16/17 Range/Units 00:12 Calcium 8.1 L (8.6-10.3) mg/dL Albumin 2.4 L (3.5-5.7) g/dL Pituitary panel 07/16/17 Range/Units 00:12 Sodium 144 (136-145) mEq/L Potassium 3.6 (3.5-5.1) mEq/L Chloride 112 H (98-107) mEq/L Carbon Dioxide 29 (23-29) mEq/L BUN 25 H (8-23) mg/dL Creatinine 0.75 (0.70-1.30) mg/dL Glucose 97 (70-105) mg/dL Calcium 8.1 L (8.6-10.3) mg/dL Adrenal panel 07/16/17 Range/Units 00:12 Sodium 144 (136-145) mEq/L Potassium 3.6 (3.5-5.1) mEq/L Chloride 112 H (98-107) mEq/L Carbon Dioxide 29 (23-29) mEq/L BUN 25 H (8-23) mg/dL Creatinine 0.75 (0.70-1.30) mg/dL Glucose 97 (70-105) mg/dL Calcium 8.1 L (8.6-10.3) mg/dL Total Bilirubin 1.1 H (0.3-1.0) mg/dL AST 50 H (13-39) Units/L ALT 16 (7-52) Units/L Alkaline Phosphatase 53 (34-104) Units/L Albumin 2.4 L (3.5-5.7) g/dL - Attending Attestation I examined this patient and my medical decision-making was reviewed with the Resident Physician. I agree with the documented findings, disposition and treatment plan as described except to the extent set forth below. The patient is seen and evaluated on morning rounds with rest. He is doing well postoperative day 1 from small bowel resection for incarcerated incisional hernia. His pulmonary clearance is poor and we will continue to focus on getting his lungs clear. Continue hydration.
[2017-07-14] MEDS ORDERED: Aspirin Enteric Coated 81 MG Tablet PO SCH (13:15)
--- NOTE | 2017-07-14 14:30 | Internal Med Progress Note ---
Date of Encounter: 07/14/17 Time of Encounter: 14:28 - Assessment and plan (1) Status post small bowel resection Current Visit: Yes Status: Acute Assessment and plan: Today is a postoperative day one for A) small bowel resection B) repair of incisional hernia Surgery was performed yesterday. In view of recent small bowel resection, there is a concern of activity of GI tract in terms of absorption of medication. Case discussed with cardiology/surgery. Plan: Aspirin 325 mg per rectally every day. IV heparin (low dose) as per protocol. (Patient has a recent drug-eluting stent on 06/19/2017.) Nothing by mouth. Blood transfusion 2 (packed red blood cells) Pain control with appropriate medication NG tube to low intermittent wall suction Continue GI prophylaxis Continue with DVT prophylaxis ( heparin drip, SQ heparin stopped)) (2) GI bleed Current Visit: Yes Status: Acute Assessment and plan: 82/male Multiple comorbid conditions: Hypertension/hyperlipidemia/A. fib/coronary artery disease with recent 2 stents Anticoagulant: Aspirin/Plavix/Xarelto Came to emergency room yesterday with worsening vomiting along with progressively dark stool for the past few days. Noted that patient's hemoglobin was less than 7. Stool guaiac was positive Evaluated by surgery/cardiology. Surgery: IV PPI/blood transfusions/NG placement/CT abdomen and pelvis/close monitoring/nothing by mouth/plan for endoscopy when patient is more stable Cardiology: Continue aspirin/Plavix to prevent stent stenosis/thrombosis. May discontinue Xarelto plan Surgery/cardiology recommendations appreciated will follow recommendations from Surg and cardiology. Blood transfusion ordered. Labs for tomorrow morning 07/14/2017 We will closely monitor patient's hemoglobin/hematocrit. The etiology of GI bleed might have been treated as underlying cause has been taken care of. Qualifiers: GI bleed type/associated pathology: gastritis Gastritis type: unspecified gastritis Qualified Code(s): K29.71 - Gastritis, unspecified, with bleeding (3) CAD (coronary artery disease) Current Visit: Yes Status: Chronic Assessment and plan: See above Qualifiers: Coronary Disease-Associated Artery/Lesion type: [place] artery [place] vs. transplanted heart: [place] heart Associated angina: without angina Qualified Code(s): I25.10 - Atherosclerotic heart disease of [place] coronary artery without angina pectoris (4) Hypertension Current Visit: No Status: Chronic Assessment and plan: hold antiHTN in view o possible hypoperfusion. Qualifiers: Hypertension type: essential hypertension Qualified Code(s): I10 - Essential (primary) hypertension (5) DVT prophylaxis Current Visit: No Status: Acute Assessment and plan: Heparin drip Medical decision making: This patient has a moderate to severe risk of worsening in spite of being on appropriate medications due to the underlying multiple comorbid conditions. - Subjective Interval history: Patient seen and examined. Chart reviewed. Patient is comfortably sitting up in a chair. Patient still has abdominal pain is mainly in epigastric region. Patient denies any chest pain, shortness of breath, dizziness and diarrhea. 07/14/2017 Patient seen and examined. Chart reviewed. Events noted from yesterday evening regarding surgical intervention. Patient is comfortably sitting up in the bed in a propped up position. Denies any chest pain, shortness of breath, dizziness and diarrhea. - Constitutional Vitals: Temp Pulse Resp BP Pulse Ox 100.5 F H 89 14 122/59 96 07/14/17 10:24 07/14/17 10:24 07/14/17 10:24 07/14/17 10:24 07/14/17 10:24 General appearance: Present: mild distress, A&O X 3 - Head Head exam: Present: atraumatic, normocephalic - Eye Eye exam: Present: PERRL, conjuntiva pink, sclera anicteric Pupils: Present: PERRL - Neck Neck exam general surgery: Present: supple, trachea midline. Absent: lymphadenopathy - Respiratory Respiratory exam: Present: CTAB. Absent: accessory muscle use, rales, rhonchi, wheezes - Cardiovascular Cardiovascular exam: Present: RRR, +S1, +S2. Absent: diastolic murmur, gallop, rubs, systolic murmur - GI/Abdominal GI/Abdominal exam: Present: normal bowel sounds, soft, no peritoneal signs. Absent: distended, tenderness - Extremities Exam Extremities exam: Present: warm, radial pulses palpable and symmetrical. Absent : calf tenderness, cyanotic, pedal edema - Neurological Exam Neurological exam: Present: CN II-XII intact, oriented X3, no focal deficits. Absent: pronater drift, facial droop, speech deficit - Skin Skin exam: Present: dry, intact Internal Medicine: Result - Labs CBC & Chem 7: 07/14/17 03:51 07/14/17 03:51 Labs: Short CBC 07/14/17 Range/Units 03:51 WBC 14.0 H (4.3-11.1) K/mcL Hgb 8.8 L (12.9-16.9) g/dL Hct 29.4 L (37.5-50.1) % Plt Count 370 (140-400) K/mcL Neutrophils # 12.7 H (1.6-8.9) K/mcL BMP 07/14/17 03:51 Sodium 140 Potassium 3.7 Chloride 104 Carbon Dioxide 26 BUN 22 Creatinine 0.86 Glucose 69 L Calcium 8.2 L Liver Function 07/14/17 Range/Units 03:51 Total Bilirubin 1.3 H (0.3-1.0) mg/dL AST 20 (13-39) Units/L ALT 12 (7-52) Units/L Alkaline Phosphatase 55 (34-104) Units/L Albumin 2.8 L (3.5-5.7) g/dL - ABG Interpretation ABG results: PT/INR, D-dimer PT 14.6 Seconds (9.4-12.1) H 07/12/17 13:52 - Impressions Impressions Abdomen/Pelvis CT 07/13/17 12:04 IMPRESSION: Distal small bowel obstruction due to a right inguinal hernia. RECOMMENDATIONS: The findings were sent to the Radiology Results Communication [facility] at 5:47 pm on 07/13/2017to be communicated to a licensed caregiver. Case discussed with Dr. Carlita Mccabe at 5:52 p.m. D/ / 07/13/2017 17:51:08 Giles Garcia MD / jem Interpreting Provider: Giles Garcia MD X-Ray 07/14/17 00:01 IMPRESSION: Tip of the enteric tube is seen within the distal esophagus and further advancement is recommended. The findings were sent to the Radiology Results Communication Center at 12:45 am on 07/14/2017to be communicated to a licensed caregiver. D/ / Agustina Morrison MD / Agustina Morrison MD Interpreting Provider: Agustina Morrison MD X-Ray 07/14/17 01:09 IMPRESSION: The enteric tube is in good position in the stomach. D/ / Don Morin MD / Don Morin MD Interpreting Provider: Don Morin MD - VTE Reasons for not Prescribing Prophylaxis: Not indicated-Anticoagulated or INR therapeutic Documentation of Mechanical Device: Intermittent pneumatic compression device Consult Discharge Plan - Plan Referrals: Dane Justin MD [Primary Care Provider] -
[2017-07-14] MEDS ORDERED: Heparin 25,000 UNIT/500 ML D5W 25,000 UNIT/500 ML BAG IVC SCH (15:30)
[2017-07-14] MEDS ORDERED: Ondansetron 4 MG/2 ML VIAL IVP ONE (16:17)
[2017-07-14 16:47] LABS: Hematocrit 28.4 % (37.5-50.1); Hemoglobin 8.5 g/dL (12.9-16.9); Immature Platelets 3.5 % (1.1-6.1); Mean Corpuscular HGB Conc 29.9 g/dL (31.6-35.5); Mean Corpuscular Hemoglobin 23.5 pg (28.0-33.3); Mean Corpuscular Volume 78.7 fL (83.0-100.0); Mean Platelet Volume 9.1 fL (9.4-12.4); Red Blood Count 3.61 M/mcL (4.19-5.50); Red Cell Distribution Width 21.1 % (11.5-14.5)
[2017-07-14 16:52] LABS: INR 1.5; Prothrombin Time 16.6 Seconds (9.4-12.1)
[2017-07-14 16:54] LABS: Activated Partial Thrombo Time 29.5 Seconds (26.0-36.0)
[2017-07-14] MEDS: *HR* LORazepam 2 MG/ML VIAL IVP SCH (20:43)
[2017-07-14] MEDS: Artificial Tears SOLN 15 ML BOTTLE BOTH EYES SCH (23:28)
[2017-07-14] MEDS: Ondansetron 4 MG/2 ML VIAL IVP PRN (23:29)
[2017-07-15] MEDS ORDERED: *HR* LORazepam 2 MG/ML VIAL IVP SCH
--- NOTE | 2017-07-15 00:19 | Event Note ---
Date of Encounter: 07/15/17 Time of Encounter: 00:16 Called by RN for concerns of blood in NG drainage. Heparin drip stopped now, H/ H ordered, and Heparin SQ DVT prophylaxis ordered for tomorrow morning. I asked RN to notify me with H/H results.
[2017-07-15 00:47] LABS: Basophils % 0.2 %; Hemoglobin 8.4 g/dL (12.9-16.9); Immature Granulocytes % 0.4 % (0-4); Lymphocytes % 9.1 %; Mean Corpuscular Hemoglobin 23.5 pg (28.0-33.3); Mean Corpuscular Volume 78.4 fL (83.0-100.0); Mean Platelet Volume 9.3 fL (9.4-12.4); Monocytes # 1.5 K/mcL (0.0-1.3); Monocytes % 13.4 %; Neutrophils # 8.7 K/mcL (1.6-8.9); Nucleated Red Blood Cells 0.2 /100 WBC (0); Platelet Count 320 K/mcL (140-400); Red Blood Count 3.57 M/mcL (4.19-5.50); Red Cell Distribution Width 21.3 % (11.5-14.5); Segmented Neutrophils % 76.9 %
[2017-07-15 01:47] LABS: Alanine Aminotransferase 12 Units/L (7-52); Albumin 2.6 g/dL (3.5-5.7); Alkaline Phosphatase 51 Units/L (34-104); Aspartate Amino Transferase 28 Units/L (13-39); BUN/Creatinine Ratio 30 (6-26); Bilirubin,Total 1.4 mg/dL (0.3-1.0); Blood Urea Nitrogen 27 mg/dL (8-23); Calcium 8.1 mg/dL (8.6-10.3); Carbon Dioxide 27 mEq/L (23-29); Chloride 108 mEq/L (98-107); Globulin 2.5 g/dL (2.4-3.5); Glucose 75 mg/dL (70-105); Osmolality,Calculated 298 (280-300); Potassium 3.7 mEq/L (3.5-5.1); Sodium 142 mEq/L (136-145); Total Protein 5.1 g/dL (6.4-8.9); eGFR For African Americans > 60 (> 60); eGFR For Non-African Americans > 60 (> 60)
[2017-07-15] MEDS: *HR* LORazepam 2 MG/ML VIAL IVP SCH ×4 (02:36→21:23)
[2017-07-15] MEDS: 0.9 % Sodium Chloride 1,000 ML IVC SCH ×2 (02:37→14:01)
[2017-07-15] MEDS: OXYCODONE Oral CONC 10 MG/0.5 ML ORAL.SYG SL PRN ×4 (06:29→18:29)
--- NOTE | 2017-07-15 09:55 | Event Note ---
Date of Encounter: 07/15/17 Time of Encounter: 09:53 - Cardiology Event Note Pt NPO due to acute GI issues. Currently on ASA rectal 300mg daily--agree. When able, recommend resuming Plavix given his recent JATINDER and risk of stent thrombosis. Heparin gtt started last night, stopped due to blood in NG tube. Would recommend heparin gtt if able to tolerate. No further cardiology recommendations. If pt is unable to be on DAPT and would develop stent thrombosis, no intervention would be possible from a cardiac perspective. Please reconsult PRN.
[2017-07-15] MEDS: Pantoprazole 40 MG VIAL IVP SCH ×2 (10:00→21:23)
[2017-07-15] MEDS: *HR* Heparin 5,000 UNIT/ML VIAL SQ SCH ×2 (10:00→16:51)
[2017-07-15] MEDS: Artificial Tears SOLN 15 ML BOTTLE BOTH EYES SCH ×4 (10:01→21:24)
[2017-07-15] MEDS ORDERED: Acetaminophen 650 MG RECTAL SUPP RC PRN (10:18)
--- NOTE | 2017-07-15 12:14 | General Surgery Progress Note ---
<ChrissyNancy - Last Filed: 07/15/17 12:15> Date of Encounter: 07/15/17 Time of Encounter: 12:12 - Assessment and Plan (1) Status post small bowel resection Current Visit: Yes Status: Acute Date of procedure: 07/13/17 Pre-op diagnosis: Small bowel obstruction and incisional hernia Post-op diagnosis: same Procedure: #1 repair of incisional hernia #2 small bowel resection Anesthesia: AIDAN Surgeon: Dane Swanson POD 2, as above. -NPO while awaiting return of bowel function. -IVF -NG tube to low intermittent wall suction -Adequate pain control to support post-operative rehabilitation -Aggressive pulmonary toilet -Encourage incentive spirometry use frequently -Continue GI prophylaxis -Continue DVT prophylaxis (2) Anemia Current Visit: Yes Status: Acute 2/ Hgb 8.4 2/4 Hgb 8.8. 2/3: 7.7 Multiple comorbid conditions: Hypertension/hyperlipidemia/A. fib/coronary artery disease with recent 2 stents on chronic anticoagulation Stool guaiac was positive Will eventually require EGD and colonoscopy, however pre-eminently will need to be stabilized from recovery of bowel obstruction H&H/transfusions per primary team. Cardiology on consult for recommendations regarding anticoagulation Plan for ASA rectal 300mg daily and heparin gtt if able to tolerate, per cardiology Surgery will continue to follow along with you Qualifiers: Anemia type: iron deficiency Iron deficiency anemia type: unspecified iron deficiency Qualified Code(s): D50.9 - Iron deficiency anemia, unspecified Subjective Patient reports: pain is less, no flatus, no bowel movement Narrative: Overnight RN reported bright red drainage from NG-tube. Objective Vital Signs - Last 8 Hours Temp Pulse Resp BP Pulse Ox 07/15/17 11:25 100 F H 85 16 116/72 97 07/15/17 10:49 95 07/15/17 07:15 100.3 F H 91 16 126/65 96 07/15/17 06:02 99.0 F Intake and Output 07/14/17 07/15/17 07/15/17 23:59 07:59 15:59 Intake Total 350 / 350 200 / 200 Output Total 650 / 650 650 / 650 Balance -300 / -300 -450 / -450 Intake: IV Fluids 200 / 200 Heparin 25,000 UNIT/500 ML D5W 200 / 200 25,000 unit In 500 ml @ 12 UNIT /KG/HR 16.272 mls/hr IVC .Q24H [facility] Rx#:[id number] Oral 0 / 0 0 / 0 Blood Product 350 / 350 Rbcs Leuko Poor As-1 Unit 350 / 350 [id number] Output: Urine 0 / 0 100 / 100 Gastric Tube Lavage Amount 100 / 100 Right Nare 100 / 100 Catheter 300 / 300 300 / 300 Gastric Drainage 350 / 350 150 / 150 Right Nare 25 / 25 150 / 150 Other: Meal Dinner Percent of Meal Consumed 0% Blood Glucose* 70 65 - General physical appearance no distress - ENT Other (NG-tube draining appropriately this AM) - Respiratory normal expansion, normal respiratory effort, other (equal lung sounds b/l ) - Cardiovascular Cardiovascular exam: Present: regular rhythm. Absent: tachycardia - Abdomen Abdomen: Present: bowel sounds present, soft, tender (expected post-op tenderness ) - Incision Incision: Present: intact. Absent: draining, purulent (rose intact) - Labs 07/15/17 00:39 07/15/17 00:39 Diabetes panel 07/15/17 Range/Units 00:39 Sodium 142 (136-145) mEq/L Potassium 3.7 (3.5-5.1) mEq/L Chloride 108 H (98-107) mEq/L Carbon Dioxide 27 (23-29) mEq/L BUN 27 H (8-23) mg/dL Creatinine 0.89 (0.70-1.30) mg/dL Glucose 75 (70-105) mg/dL Calcium 8.1 L (8.6-10.3) mg/dL AST 28 (13-39) Units/L ALT 12 (7-52) Units/L Alkaline Phosphatase 51 (34-104) Units/L Albumin 2.6 L (3.5-5.7) g/dL Calcium panel 07/15/17 Range/Units 00:39 Calcium 8.1 L (8.6-10.3) mg/dL Albumin 2.6 L (3.5-5.7) g/dL Pituitary panel 07/15/17 Range/Units 00:39 Sodium 142 (136-145) mEq/L Potassium 3.7 (3.5-5.1) mEq/L Chloride 108 H (98-107) mEq/L Carbon Dioxide 27 (23-29) mEq/L BUN 27 H (8-23) mg/dL Creatinine 0.89 (0.70-1.30) mg/dL Glucose 75 (70-105) mg/dL Calcium 8.1 L (8.6-10.3) mg/dL Adrenal panel 07/15/17 Range/Units 00:39 Sodium 142 (136-145) mEq/L Potassium 3.7 (3.5-5.1) mEq/L Chloride 108 H (98-107) mEq/L Carbon Dioxide 27 (23-29) mEq/L BUN 27 H (8-23) mg/dL Creatinine 0.89 (0.70-1.30) mg/dL Glucose 75 (70-105) mg/dL Calcium 8.1 L (8.6-10.3) mg/dL Total Bilirubin 1.4 H (0.3-1.0) mg/dL AST 28 (13-39) Units/L ALT 12 (7-52) Units/L Alkaline Phosphatase 51 (34-104) Units/L Albumin 2.6 L (3.5-5.7) g/dL - VTE Reasons for not Prescribing Prophylaxis: Not indicated-Anticoagulated or INR therapeutic Documentation of Mechanical Device: Intermittent pneumatic compression device Consult Discharge Plan - Plan Referrals: Dane Justin MD [Primary Care Provider] - <Dane Swanson - Last Filed: 07/16/17 08:48> Date of Encounter: 07/15/17 - Assessment and Plan (1) Anemia Current Visit: Yes Status: Acute Qualifiers: Anemia type: iron deficiency Iron deficiency anemia type: unspecified iron deficiency Qualified Code(s): D50.9 - Iron deficiency anemia, unspecified Objective Vital Signs - Last 8 Hours Temp Pulse Resp BP Pulse Ox 07/16/17 08:08 16 98 07/16/17 07:54 98.5 F 86 18 126/66 96 07/16/17 05:28 98.6 F 89 17 126/69 97 Intake and Output 07/15/17 07/16/17 07/16/17 23:59 07:59 15:59 Intake Total 0 / 0 1000 / 1000 Output Total 575 / 575 50 / 50 Balance -575 / -575 1000 / 1000 -50 / -50 Intake: IV Fluids 1000 / 1000 D5% And 0.45% Nacl 1000 Ml Bag 1000 / 1000 1,000 ML @ 75 mls/hr IVC . [id number] [facility] Rx#:[id number] Oral 0 / 0 Output: Urine 175 / 175 Catheter 400 / 400 Gastric Drainage 50 / 50 Other: Blood Glucose* 100 111 - Labs 07/16/17 00:12 07/16/17 00:12 Diabetes panel 07/16/17 Range/Units 00:12 Sodium 144 (136-145) mEq/L Potassium 3.6 (3.5-5.1) mEq/L Chloride 112 H (98-107) mEq/L Carbon Dioxide 29 (23-29) mEq/L BUN 25 H (8-23) mg/dL Creatinine 0.75 (0.70-1.30) mg/dL Glucose 97 (70-105) mg/dL Calcium 8.1 L (8.6-10.3) mg/dL AST 50 H (13-39) Units/L ALT 16 (7-52) Units/L Alkaline Phosphatase 53 (34-104) Units/L Albumin 2.4 L (3.5-5.7) g/dL Calcium panel 07/16/17 Range/Units 00:12 Calcium 8.1 L (8.6-10.3) mg/dL Albumin 2.4 L (3.5-5.7) g/dL Pituitary panel 07/16/17 Range/Units 00:12 Sodium 144 (136-145) mEq/L Potassium 3.6 (3.5-5.1) mEq/L Chloride 112 H (98-107) mEq/L Carbon Dioxide 29 (23-29) mEq/L BUN 25 H (8-23) mg/dL Creatinine 0.75 (0.70-1.30) mg/dL Glucose 97 (70-105) mg/dL Calcium 8.1 L (8.6-10.3) mg/dL Adrenal panel 07/16/17 Range/Units 00:12 Sodium 144 (136-145) mEq/L Potassium 3.6 (3.5-5.1) mEq/L Chloride 112 H (98-107) mEq/L Carbon Dioxide 29 (23-29) mEq/L BUN 25 H (8-23) mg/dL Creatinine 0.75 (0.70-1.30) mg/dL Glucose 97 (70-105) mg/dL Calcium 8.1 L (8.6-10.3) mg/dL Total Bilirubin 1.1 H (0.3-1.0) mg/dL AST 50 H (13-39) Units/L ALT 16 (7-52) Units/L Alkaline Phosphatase 53 (34-104) Units/L Albumin 2.4 L (3.5-5.7) g/dL - Attending Attestation I examined this patient and my medical decision-making was reviewed with the Resident Physician. I agree with the documented findings, disposition and treatment plan as described except to the extent set forth below. The patient was seen and evaluated on morning rounds with the resident. He is doing very well after small bowel resection for incarcerated incisional hernia. We continued to struggle with his pulmonary clearance. Continue supportive care. Dane Swanson MD FACS
[2017-07-15] MEDS: D5% in 0.45% NACL 1,000 ML IVC SCH (16:39)
--- NOTE | 2017-07-15 16:39 | Internal Med Progress Note ---
Date of Encounter: 07/15/17 Time of Encounter: 16:35 - Assessment and plan (1) Status post small bowel resection Current Visit: Yes Status: Acute Assessment and plan: Today is a postoperative day one for A) small bowel resection B) repair of incisional hernia Surgery was performed yesterday. In view of recent small bowel resection, there is a concern of activity of GI tract in terms of absorption of medication. Case discussed with cardiology/surgery. Plan: Aspirin 325 mg per rectally every day. IV heparin (low dose) as per protocol. (Patient has a recent drug-eluting stent on 06/19/2017.) Nothing by mouth. Blood transfusion 2 (packed red blood cells) Pain control with appropriate medication NG tube to low intermittent wall suction Continue GI prophylaxis Continue with DVT prophylaxis ( heparin drip, SQ heparin stopped)) 07/15/2017 Postoperative day 2 Events noted: Heparin drip was stopped in view of possible GI bleed. Noted that nasogastric tube had hematologic aspiration. at this point patient is not on any anticoagulation for recent drug-eluting stent. Patient is at the high yesterday risk of getting a stent restenosis/stent thrombosis. This can be frontal and patient may because of stent thrombosis. Cardiology on the board. We will follow the recommendations from cardiology. Surgery is aware of this development and we will follow their recommendations. (2) GI bleed Current Visit: Yes Status: Acute Assessment and plan: 82/male Multiple comorbid conditions: Hypertension/hyperlipidemia/A. fib/coronary artery disease with recent 2 stents Anticoagulant: Aspirin/Plavix/Xarelto Came to emergency room yesterday with worsening vomiting along with progressively dark stool for the past few days. Noted that patient's hemoglobin was less than 7. Stool guaiac was positive Evaluated by surgery/cardiology. Surgery: IV PPI/blood transfusions/NG placement/CT abdomen and pelvis/close monitoring/nothing by mouth/plan for endoscopy when patient is more stable Cardiology: Continue aspirin/Plavix to prevent stent stenosis/thrombosis. May discontinue Xarelto plan Surgery/cardiology recommendations appreciated will follow recommendations from Surg and cardiology. Blood transfusion ordered. Labs for tomorrow morning 07/14/2017 We will closely monitor patient's hemoglobin/hematocrit. The etiology of GI bleed might have been treated as underlying cause has been taken care of. Qualifiers: GI bleed type/associated pathology: gastritis Gastritis type: unspecified gastritis Qualified Code(s): K29.71 - Gastritis, unspecified, with bleeding (3) CAD (coronary artery disease) Current Visit: Yes Status: Chronic Assessment and plan: See above Qualifiers: Coronary Disease-Associated Artery/Lesion type: [place] artery [place] vs. transplanted heart: [place] heart Associated angina: without angina Qualified Code(s): I25.10 - Atherosclerotic heart disease of [place] coronary artery without angina pectoris (4) Hypertension Current Visit: No Status: Chronic Assessment and plan: hold antiHTN in view o possible hypoperfusion. Qualifiers: Hypertension type: essential hypertension Qualified Code(s): I10 - Essential (primary) hypertension (5) DVT prophylaxis Current Visit: No Status: Acute Assessment and plan: Heparin drip Medical decision making: This patient has a moderate to severe risk of worsening in spite of being on appropriate medications due to the underlying multiple comorbid conditions. - Subjective Interval history: Patient seen and examined. Chart reviewed. Patient is comfortably sitting up in a chair. Patient still has abdominal pain is mainly in epigastric region. Patient denies any chest pain, shortness of breath, dizziness and diarrhea. 07/14/2017 Patient seen and examined. Chart reviewed. Events noted from yesterday evening regarding surgical intervention. Patient is comfortably sitting up in the bed in a propped up position. Denies any chest pain, shortness of breath, dizziness and diarrhea. 07/15/2017 Patient seen and examined. Chart reviewed. Patient's vitals noted. Patient is comfortably lying in the bed. Patient denies any chest pain, nausea, vomiting, abdominal pain, dizziness and diarrhea. - Constitutional Vitals: Temp Pulse Resp BP Pulse Ox 99.3 F 79 16 111/58 98 07/15/17 15:12 07/15/17 15:12 07/15/17 15:12 07/15/17 15:12 07/15/17 15:12 General appearance: Present: mild distress, A&O X 3 - Head Head exam: Present: atraumatic, normocephalic - Eye Eye exam: Present: PERRL, conjuntiva pink, sclera anicteric Pupils: Present: PERRL - Neck Neck exam general surgery: Present: supple, trachea midline. Absent: lymphadenopathy - Respiratory Respiratory exam: Present: CTAB. Absent: accessory muscle use, rales, rhonchi, wheezes - Cardiovascular Cardiovascular exam: Present: RRR, +S1, +S2. Absent: diastolic murmur, gallop, rubs, systolic murmur - GI/Abdominal GI/Abdominal exam: Present: normal bowel sounds, soft, no peritoneal signs. Absent: distended, tenderness - Extremities Exam Extremities exam: Present: warm, radial pulses palpable and symmetrical. Absent : calf tenderness, cyanotic, pedal edema - Neurological Exam Neurological exam: Present: CN II-XII intact, oriented X3, no focal deficits. Absent: pronater drift, facial droop, speech deficit - Skin Skin exam: Present: dry, intact Internal Medicine: Result - Labs CBC & Chem 7: 07/15/17 00:39 07/15/17 00:39 Labs: Short CBC 07/14/17 07/15/17 Range/Units 16:41 00:39 WBC 12.1 H 11.3 H (4.3-11.1) K/mcL Hgb 8.5 L 8.4 L (12.9-16.9) g/dL Hct 28.4 L 28.0 L (37.5-50.1) % Plt Count 370 320 (140-400) K/mcL Neutrophils # 8.7 (1.6-8.9) K/mcL BMP 07/15/17 00:39 Sodium 142 Potassium 3.7 Chloride 108 H Carbon Dioxide 27 BUN 27 H Creatinine 0.89 Glucose 75 Calcium 8.1 L Liver Function 07/15/17 Range/Units 00:39 Total Bilirubin 1.4 H (0.3-1.0) mg/dL AST 28 (13-39) Units/L ALT 12 (7-52) Units/L Alkaline Phosphatase 51 (34-104) Units/L Albumin 2.6 L (3.5-5.7) g/dL - ABG Interpretation ABG results: PT/INR, D-dimer PT 16.6 Seconds (9.4-12.1) H 07/14/17 16:41 - VTE Reasons for not Prescribing Prophylaxis: Not indicated-Anticoagulated or INR therapeutic Documentation of Mechanical Device: Intermittent pneumatic compression device Consult Discharge Plan - Plan Referrals: Justin,Dane Guzmán MD [Primary Care Provider] -
[2017-07-15] MEDS: Budesonide/Formoterol 160/4.5 MDI IH SCH (19:07)
[2017-07-15] MEDS: Furosemide 40 MG/4 ML VIAL IVP SCH (19:08)
[2017-07-15] MEDS: Pantoprazole 40 MG in 0.9 % Sodium Chloride Mini Bag 100 ML IVC SCH (19:08)
[2017-07-15] MEDS: *HR* LORazepam 0.5 MG TABLET PO SCH (19:08)
[2017-07-15] MEDS ORDERED: Budesonide/Formoterol 160/4.5 MDI IH SCH (22:00)
[2017-07-16 00:41] LABS: Basophils % 0.2 %; Hemoglobin 8.5 g/dL (12.9-16.9)
[2017-07-16 00:42] LABS: Eosinophils % 0.4 %; Hematocrit 28.7 % (37.5-50.1); Immature Granulocytes % 0.3 % (0-4); Lymphocytes % 8.8 %; Mean Corpuscular HGB Conc 29.6 g/dL (31.6-35.5); Mean Corpuscular Hemoglobin 23.7 pg (28.0-33.3); Mean Corpuscular Volume 80.2 fL (83.0-100.0); Mean Platelet Volume 9.8 fL (9.4-12.4); Monocytes # 1.2 K/mcL (0.0-1.3); Monocytes % 10.8 %; Neutrophils # 8.6 K/mcL (1.6-8.9); Platelet Count 318 K/mcL (140-400); Red Blood Count 3.58 M/mcL (4.19-5.50); Segmented Neutrophils % 79.5 %
[2017-07-16 01:07] LABS: Alanine Aminotransferase 16 Units/L (7-52); Albumin 2.4 g/dL (3.5-5.7); Albumin/Globulin Ratio 0.9 (1.1-2.2); Alkaline Phosphatase 53 Units/L (34-104); Aspartate Amino Transferase 50 Units/L (13-39); BUN/Creatinine Ratio 33 (6-26); Bilirubin,Total 1.1 mg/dL (0.3-1.0); Blood Urea Nitrogen 25 mg/dL (8-23); Calcium 8.1 mg/dL (8.6-10.3); Carbon Dioxide 29 mEq/L (23-29); Chloride 112 mEq/L (98-107); Globulin 2.7 g/dL (2.4-3.5); Glucose 97 mg/dL (70-105); Osmolality,Calculated 302 (280-300); Potassium 3.6 mEq/L (3.5-5.1); Sodium 144 mEq/L (136-145); Total Protein 5.1 g/dL (6.4-8.9); eGFR For African Americans > 60 (> 60); eGFR For Non-African Americans > 60 (> 60)
[2017-07-16 01:45] LABS: Anisocytosis 3+ (Not Present); Hypochromasia Present (Not Present)
[2017-07-16 01:46] LABS: Polychromasia 1+ (Not Present); Toxic Granulation Present (Not Present)
[2017-07-16] MEDS: OXYCODONE Oral CONC 10 MG/0.5 ML ORAL.SYG SL PRN ×3 (04:31→14:10)
[2017-07-16] MEDS: Chloraseptic Spray 177 ML BOTTLE MM PRN ×2 (04:32→10:01)
[2017-07-16] MEDS: D5% in 0.45% NACL 1,000 ML IVC SCH ×2 (05:14→18:34)
[2017-07-16] MEDS: *HR* LORazepam 2 MG/ML VIAL IVP SCH ×3 (05:37→22:43)
[2017-07-16] MEDS: *HR* Heparin 5,000 UNIT/ML VIAL SQ SCH ×2 (05:37→18:35)
[2017-07-16] MEDS: Ipratropium/Albuterol Neb 3 ML IH PRN ×2 (08:05→19:50)
[2017-07-16] MEDS: Budesonide/Formoterol 160/4.5 MDI IH SCH ×2 (08:05→19:49)
--- NOTE | 2017-07-16 09:35 | Internal Med Progress Note ---
<Houston Prince - Last Filed: 07/16/17 09:54> Date of Encounter: 07/16/17 Time of Encounter: 09:32 - Assessment and plan (1) Hypertension Current Visit: No Status: Chronic Assessment and plan: Blood pressure stable, continue to hold antihypertensive medications. Patient is nothing by mouth. Qualifiers: Hypertension type: essential hypertension Qualified Code(s): I10 - Essential (primary) hypertension (2) CAD (coronary artery disease) Current Visit: Yes Status: Chronic Assessment and plan: 82-year-old male with significance vascular disease with recent drug-eluting stent to the proximal LAD 06/19/2017 recently on Plavix, aspirin for dual antiplatelet therapy and Xarelto for Atrial fibrillation. He has had multiple previous vascular surgeries with femorofemoral bypass and repair completed at this facility. - Echocardiogram from June demonstrates an ejection fraction of 35-40% with current stable systolic heart failure. - He was admitted with anemia in the setting of small bowel obstruction and GI bleed. He has been off aspirin and Plavix with recent stent increasing risk for stent thrombosis and high mortality rate. He has since been on rectal aspirin 300 mg daily and heparin GTT. The heparin drip was discontinued yesterday in the setting of anemia requiring 2 units PRBC transfusion. His atrial fibrillation anticoagulation has been held in the setting of GI bleed. Plan: - We will discuss risks and benefits with patient in cardiology to resume heparin drip plus rectal aspirin as his hemoglobin has been stable overnight. - Patient would benefit from being on dual antiplatelet therapy but currently unable to take anything orally postoperatively. Qualifiers: Coronary Disease-Associated Artery/Lesion type: [place] artery [place] vs. transplanted heart: [place] heart Associated angina: without angina Qualified Code(s): I25.10 - Atherosclerotic heart disease of [place] coronary artery without angina pectoris (3) GI bleed Current Visit: Yes Status: Acute Assessment and plan: 82/male with Multiple comorbid conditions: Hypertension/hyperlipidemia/A. fib/ coronary artery disease with recent 2 stents with current anticoagulant: Aspirin /Plavix/Xarelto came to emergency room with worsening vomiting along with progressively dark stool for several days. Stool guaiac was positive. Patient underwent partial colectomy for small bowel obstruction and incisional hernia. Patient continued to have decreasing hemoglobin and surgery recommends endoscopy and colonoscopy after patient has stabilized from recovery of SBO. Mr. [place]cup is nothing by mouth postoperatively with hypoactive bowel sounds no bowel movements or flatulence and unable to take oral anticoagulants. Discussion between primary team and cardiology with recommendations for 300 mg rectal aspirin and heparin gtt. if tolerated, to help prevent potential stent thrombosis. He is off dual anti-platelet therapy with a recent stents placed on 06/19/2017 and only on rectal aspirin increasing his risk of stent thrombosis with high mortality risk. - Surgery: IV PPI/blood transfusions/NG placement/CT abdomen and pelvis/close monitoring/nothing by mouth/plan for endoscopy when patient is more stable - plan - Surgery/cardiology recommendations appreciated - will follow recommendations from Surg and cardiology. - We will closely monitor patient's hemoglobin/hematocrit. - We will recommend colonoscopy and endoscopy when patient is stable for procedure. Qualifiers: GI bleed type/associated pathology: gastritis Gastritis type: unspecified gastritis Qualified Code(s): K29.71 - Gastritis, unspecified, with bleeding (4) Status post small bowel resection Current Visit: Yes Status: Acute Assessment and plan: 07/16/2017 Postoperative day 3 partial colectomy with 10 cm small bowel resected secondary to SBO and incisional hernia. - Surgical management and recommendations from Dr. Swanson with general surgery appreciated (5) Systolic heart failure Current Visit: Yes Status: Acute Assessment and plan: Stable systolic heart failure with ejection fraction of 35-40% with recent JATINDER placed 06/19/2017. - Cardiology following appreciate recommendations - Continued on Aldactone, Plavix held in the setting of GI bleed and nothing by mouth, aspirin 300 mg rectally, unable to be on beta risa and JOSELITO inhibitor due to hypotension and nothing by mouth. - Continue to monitor, strict intake and output monitoring, daily weights - When able to take oral intake will restrict to 2 L fluid restrictions, 2 g sodium restrictions. Qualifiers: Qualified Code(s): I50.20 - Unspecified systolic (congestive) heart failure (6) Peripheral vascular disease Current Visit: No Status: Chronic (7) PAF (paroxysmal atrial fibrillation) Current Visit: Yes Status: Chronic Assessment and plan: Known history of proximal atrial fibrillation currently heart rate is irregularly irregular. Anticoagulation held in the setting of GI bleed - Continue to monitor rate on cardiac monitoring - [id number] (Age, HTN, CAD, CHF). High CVA risk, but in setting of GI bleed need to stop Xarelto. (8) DVT prophylaxis Current Visit: No Status: Acute Assessment and plan: Subcutaneous heparin - Subjective Interval history: Mr. Yeung 82-year-old male has been seen and evaluated at patient bedside this morning. He is alert awake interactive in no acute distress. He states that he is feeling okay, oral dryness. He denies any nausea or vomiting tolerating his NG tube. Denies any flatulence or bowel movements. He does have some mild abdominal discomfort which she states is secondary to his abdominal incision. He denies any other problems at this time. He is waiting for his bowels to wake. He understands why he is receiving rectal aspirin with regards to his recent coronary stents. - Constitutional Vitals: Temp Pulse Resp BP Pulse Ox 98.5 F 86 16 126/66 98 07/16/17 07:54 07/16/17 07:54 07/16/17 08:08 07/16/17 07:54 07/16/17 08:08 General appearance: Present: mild distress, A&O X 3 Exam: General: Patient alert, awake, oriented 3, interactive, in no acute distress HEENT: Normocephalic, atraumatic, pupils equal reactive to light, oral mucosa dry, uvula midline, neck supple trachea midline no palpable lymphadenopathy, no thyromegaly. Chest: Symmetric bilateral correlating with respiratory effort, effort nonlabored. Cardiac: Regular rate and rhythm, positive S1 and S2. no bruits appreciated bilateral carotids, Radial pulses 2+ bilateral, posterior tibial and dorsal pedal pulses 2+ bilateral. Respiratory: Diffuse rhonchi Abdomen: Mildly distended, tympanic, mild tenderness to light palpation. Midline abdominal incision healing well without drainage or discharge. Bowel sounds absent. Extremities: Symmetric bilateral, bilateral lower extremities without erythema or edema patient moving all 4 extremities spontaneously. Neurologic: No focal deficits appreciated on examination. Face symmetric, muscle strength symmetric bilateral upper and lower extremities. Internal Medicine: Result - Labs CBC & Chem 7: 07/16/17 00:12 07/16/17 00:12 Labs: Short CBC 07/16/17 Range/Units 00:12 WBC 10.8 (4.3-11.1) K/mcL Hgb 8.5 L (12.9-16.9) g/dL Hct 28.7 L (37.5-50.1) % Plt Count 318 (140-400) K/mcL Neutrophils # 8.6 (1.6-8.9) K/mcL BMP 07/16/17 00:12 Sodium 144 Potassium 3.6 Chloride 112 H Carbon Dioxide 29 BUN 25 H Creatinine 0.75 Glucose 97 Calcium 8.1 L Liver Function 07/16/17 Range/Units 00:12 Total Bilirubin 1.1 H (0.3-1.0) mg/dL AST 50 H (13-39) Units/L ALT 16 (7-52) Units/L Alkaline Phosphatase 53 (34-104) Units/L Albumin 2.4 L (3.5-5.7) g/dL - ABG Interpretation ABG results: PT/INR, D-dimer PT 16.6 Seconds (9.4-12.1) H 07/14/17 16:41 - VTE Reasons for not Prescribing Prophylaxis: Not indicated-Anticoagulated or INR therapeutic Documentation of Mechanical Device: Intermittent pneumatic compression device Consult Discharge Plan - Plan Referrals: Dane Justin MD [Primary Care Provider] - <Hemal Mcdonald - Last Filed: 07/16/17 17:53> Date of Encounter: 07/16/17 - Assessment and plan (1) Incisional hernia of anterior abdominal wall with obstruction Current Visit: Yes Status: Acute Assessment and plan: s/p resection (2) CAD (coronary artery disease) Current Visit: Yes Status: Chronic Qualifiers: Coronary Disease-Associated Artery/Lesion type: [place] artery [place] vs. transplanted heart: [place] heart Associated angina: without angina Qualified Code(s): I25.10 - Atherosclerotic heart disease of [place] coronary artery without angina pectoris (3) Status post small bowel resection Current Visit: Yes Status: Acute (4) Anemia Current Visit: Yes Status: Acute Qualifiers: Anemia type: other cause Other causes of anemia: acute posthemorrhagic Qualified Code(s): D62 - Acute posthemorrhagic anemia (5) GI bleed Current Visit: Yes Status: Suspected Qualifiers: GI bleed type/associated pathology: gastritis Gastritis type: acute gastritis Qualified Code(s): K29.01 - Acute gastritis with bleeding (6) Systolic heart failure Current Visit: Yes Status: Chronic Qualifiers: Heart failure chronicity: chronic Qualified Code(s): I50.22 - Chronic systolic (congestive) heart failure (7) PAF (paroxysmal atrial fibrillation) Current Visit: Yes Status: Chronic (8) Hypertension Current Visit: No Status: Chronic Qualifiers: Hypertension type: essential hypertension Qualified Code(s): I10 - Essential (primary) hypertension - Constitutional Vitals: Temp Pulse Resp BP Pulse Ox 98.2 F 82 16 122/59 100 07/16/17 16:27 07/16/17 16:27 07/16/17 16:27 07/16/17 16:27 07/16/17 16:27 Internal Medicine: Result - Labs CBC & Chem 7: 07/16/17 12:37 07/16/17 00:12 Labs: Short CBC 07/16/17 07/16/17 Range/Units 00:12 12:37 WBC 10.8 (4.3-11.1) K/mcL Hgb 8.5 L 8.9 L (12.9-16.9) g/dL Hct 28.7 L 30.3 L (37.5-50.1) % Plt Count 318 (140-400) K/mcL Neutrophils # 8.6 (1.6-8.9) K/mcL BMP 07/16/17 00:12 Sodium 144 Potassium 3.6 Chloride 112 H Carbon Dioxide 29 BUN 25 H Creatinine 0.75 Glucose 97 Calcium 8.1 L Liver Function 07/16/17 Range/Units 00:12 Total Bilirubin 1.1 H (0.3-1.0) mg/dL AST 50 H (13-39) Units/L ALT 16 (7-52) Units/L Alkaline Phosphatase 53 (34-104) Units/L Albumin 2.4 L (3.5-5.7) g/dL - ABG Interpretation ABG results: PT/INR, D-dimer PT 16.6 Seconds (9.4-12.1) H 07/14/17 16:41 - Attending Attestation I examined this patient and my medical decision-making was reviewed with the Resident Physician on 07/16/17. I agree with the documented findings, disposition and treatment plan as described except to the extent set forth below. Mr Yeung is currently admitted for bowel obstruction and GI bleed. He remains high risk due to potential for worsening bleeding and cardiac issues. Mr Yeung is doing fair. His pain is controlled with pain meds. No fever. No further bleeding noted. Exam Alert. Mild distress due to pain Heart reg No wheeze Traced edema I/P 1. Bowel obstruction 2. GI bleed Discussed with and granddaughter - pt high risk for cardiac event due to stent and holding of Plavix. Heparin stopped due to bleeding. Cannot have EGD yet. Anticipate that if H/H stable tomorrow will restart low dose heparin.
[2017-07-16] MEDS: Pantoprazole 40 MG VIAL IVP SCH ×2 (10:01→20:19)
[2017-07-16] MEDS: Artificial Tears SOLN 15 ML BOTTLE BOTH EYES SCH ×4 (10:04→20:20)
--- NOTE | 2017-07-16 11:49 | General Surgery Progress Note ---
Addendum entered and electronically signed by Nancy Lowe MD 07/16/17 13:15: Overnight NG output record pending. Surgery to continue to monitor output. Original Note: <Nancy Lowe - Last Filed: 07/16/17 11:49> Date of Encounter: 07/16/17 Time of Encounter: 11:47 - Assessment and Plan (1) Status post small bowel resection Current Visit: Yes Status: Acute Date of procedure: 07/13/17 Pre-op diagnosis: Small bowel obstruction and incisional hernia Post-op diagnosis: same Procedure: #1 repair of incisional hernia #2 small bowel resection Anesthesia: GETA Surgeon: Dane Swanson POD 3, as above. -NPO while awaiting return of bowel function. -IVF -NG tube to low intermittent wall suction -Adequate pain control to support post-operative rehabilitation -Aggressive pulmonary toilet -Encourage incentive spirometry use frequently -Continue GI prophylaxis -Continue DVT prophylaxis Incision care: Cleanse with soap and water, pat dry daily. Apply ABD and tape to secure daily. (2) Anemia Current Visit: Yes Status: Acute 2/6 Hgb:8.5 2/5 Hgb 8.4 2/4 Hgb 8.8. 2/3: 7.7 Multiple comorbid conditions: Hypertension/hyperlipidemia/A. fib/coronary artery disease with recent 2 stents on chronic anticoagulation Stool guaiac was positive Will eventually require EGD and colonoscopy, however pre-eminently will need to be stabilized from recovery of bowel obstruction H&H/transfusions per primary team. Cardiology on consult for recommendations regarding anticoagulation Plan for ASA rectal 300mg daily and heparin gtt if able to tolerate, per cardiology Surgery will continue to follow along with you Qualifiers: Anemia type: iron deficiency Iron deficiency anemia type: unspecified iron deficiency Qualified Code(s): D50.9 - Iron deficiency anemia, unspecified Subjective Narrative: No acute events overnight. No gas, no BM yet. Denies nausea. Pt tolerating ice chips. Objective Vital Signs - Last 8 Hours Temp Pulse Resp BP Pulse Ox 07/16/17 10:20 98 07/16/17 08:08 16 98 07/16/17 07:54 98.5 F 86 18 126/66 96 07/16/17 05:28 98.6 F 89 17 126/69 97 Intake and Output 0207/16/17 07/16/17 23:59 07:59 15:59 Intake Total 0 / 0 1000 / 1000 0 / 0 Output Total 575 / 575 50 / 50 Balance -575 / -575 1000 / 1000 -50 / -50 Intake: IV Fluids 1000 / 1000 D5% And 0.45% Nacl 1000 Ml Bag 1000 / 1000 1,000 ML @ 75 mls/hr IVC . [id number] [facility] Rx#:[id number] Oral 0 / 0 0 / 0 Output: Urine 175 / 175 Catheter 400 / 400 Gastric Drainage 50 / 50 Other: Meal npo Percent of Meal Consumed 0% Blood Glucose* 100 111 - General physical appearance no distress - Eyes normal ocular movement - Respiratory other (equal breath sounds, course sound b/l ) - Cardiovascular Cardiovascular exam: Present: regular rhythm (+S1, S2). Absent: murmurs - Abdomen Additional Comments: Midline incision closure intact. Serous exudate noted in upper incision of area. No drainage, no oozing. Taty intact. - Labs 07/16/17 00:12 07/16/17 00:12 Diabetes panel 07/16/17 Range/Units 00:12 Sodium 144 (136-145) mEq/L Potassium 3.6 (3.5-5.1) mEq/L Chloride 112 H (98-107) mEq/L Carbon Dioxide 29 (23-29) mEq/L BUN 25 H (8-23) mg/dL Creatinine 0.75 (0.70-1.30) mg/dL Glucose 97 (70-105) mg/dL Calcium 8.1 L (8.6-10.3) mg/dL AST 50 H (13-39) Units/L ALT 16 (7-52) Units/L Alkaline Phosphatase 53 (34-104) Units/L Albumin 2.4 L (3.5-5.7) g/dL Calcium panel 07/16/17 Range/Units 00:12 Calcium 8.1 L (8.6-10.3) mg/dL Albumin 2.4 L (3.5-5.7) g/dL Pituitary panel 07/16/17 Range/Units 00:12 Sodium 144 (136-145) mEq/L Potassium 3.6 (3.5-5.1) mEq/L Chloride 112 H (98-107) mEq/L Carbon Dioxide 29 (23-29) mEq/L BUN 25 H (8-23) mg/dL Creatinine 0.75 (0.70-1.30) mg/dL Glucose 97 (70-105) mg/dL Calcium 8.1 L (8.6-10.3) mg/dL Adrenal panel 07/16/17 Range/Units 00:12 Sodium 144 (136-145) mEq/L Potassium 3.6 (3.5-5.1) mEq/L Chloride 112 H (98-107) mEq/L Carbon Dioxide 29 (23-29) mEq/L BUN 25 H (8-23) mg/dL Creatinine 0.75 (0.70-1.30) mg/dL Glucose 97 (70-105) mg/dL Calcium 8.1 L (8.6-10.3) mg/dL Total Bilirubin 1.1 H (0.3-1.0) mg/dL AST 50 H (13-39) Units/L ALT 16 (7-52) Units/L Alkaline Phosphatase 53 (34-104) Units/L Albumin 2.4 L (3.5-5.7) g/dL - VTE Reasons for not Prescribing Prophylaxis: Not indicated-Anticoagulated or INR therapeutic Documentation of Mechanical Device: Intermittent pneumatic compression device Consult Discharge Plan - Plan Referrals: Dane Justin MD [Primary Care Provider] - <Dane Swanson - Last Filed: 07/17/17 16:19> Date of Encounter: 07/16/17 - Assessment and Plan (1) Anemia Current Visit: Yes Status: Acute Qualifiers: Anemia type: other cause Other causes of anemia: acute posthemorrhagic Qualified Code(s): D62 - Acute posthemorrhagic anemia Objective Vital Signs - Last 8 Hours Temp Pulse Resp BP Pulse Ox 07/17/17 15:19 99 F 88 16 130/69 100 07/17/17 11:41 97.6 F 84 16 123/60 97 Intake and Output 07/17/17 07/17/17 07/17/17 07:59 15:59 23:59 Intake Total 1000 / 1000 0 / 0 Output Total 200 / 200 350 / 350 Balance 800 / 800 -350 / -350 Intake: IV Fluids 1000 / 1000 D5% And 0.45% Nacl 1000 Ml Bag 1000 / 1000 1,000 ML @ 75 mls/hr IVC . [id number] [facility] Rx#:[id number] Oral 0 / 0 0 / 0 Output: Gastric Tube Lavage Amount 100 / 100 Right Nare 100 / 100 Catheter 200 / 200 250 / 250 Gastric Drainage 0 / 0 Right Nare 0 / 0 Other: Weight 64.6 kg Blood Glucose* 144 153 Patient Weight 07/17/17 23:59 Weight 64.6 kg - Labs 07/17/17 12:02 07/17/17 00:06 Diabetes panel 07/17/17 Range/Units 00:06 Sodium 144 (136-145) mEq/L Potassium 3.1 L (3.5-5.1) mEq/L Chloride 112 H (98-107) mEq/L Carbon Dioxide 29 (23-29) mEq/L BUN 16 (8-23) mg/dL Creatinine 0.58 L (0.70-1.30) mg/dL Glucose 143 H (70-105) mg/dL Calcium 7.8 L (8.6-10.3) mg/dL AST 39 (13-39) Units/L ALT 16 (7-52) Units/L Alkaline Phosphatase 55 (34-104) Units/L Albumin 2.3 L (3.5-5.7) g/dL Calcium panel 07/17/17 Range/Units 00:06 Calcium 7.8 L (8.6-10.3) mg/dL Albumin 2.3 L (3.5-5.7) g/dL Pituitary panel 07/17/17 Range/Units 00:06 Sodium 144 (136-145) mEq/L Potassium 3.1 L (3.5-5.1) mEq/L Chloride 112 H (98-107) mEq/L Carbon Dioxide 29 (23-29) mEq/L BUN 16 (8-23) mg/dL Creatinine 0.58 L (0.70-1.30) mg/dL Glucose 143 H (70-105) mg/dL Calcium 7.8 L (8.6-10.3) mg/dL Adrenal panel 07/17/17 Range/Units 00:06 Sodium 144 (136-145) mEq/L Potassium 3.1 L (3.5-5.1) mEq/L Chloride 112 H (98-107) mEq/L Carbon Dioxide 29 (23-29) mEq/L BUN 16 (8-23) mg/dL Creatinine 0.58 L (0.70-1.30) mg/dL Glucose 143 H (70-105) mg/dL Calcium 7.8 L (8.6-10.3) mg/dL Total Bilirubin 1.0 (0.3-1.0) mg/dL AST 39 (13-39) Units/L ALT 16 (7-52) Units/L Alkaline Phosphatase 55 (34-104) Units/L Albumin 2.3 L (3.5-5.7) g/dL - Attending Attestation I examined this patient and my medical decision-making was reviewed with the Resident Physician. I agree with the documented findings, disposition and treatment plan as described except to the extent set forth below. The patient was seen and evaluated on morning rounds with resident. His pain is under good control but he still has not developed any bowel sounds or bowel function. Continue nasogastric tube drainage. Dane Swanson MD FACS
[2017-07-16 13:07] LABS: Hematocrit 30.3 % (37.5-50.1); Hemoglobin 8.9 g/dL (12.9-16.9)
[2017-07-17 00:41] LABS: Basophils % 0.2 %; Eosinophils # 0.1 K/mcL (0.0-0.6); Eosinophils % 0.7 %; Hematocrit 27.6 % (37.5-50.1); Hemoglobin 8.2 g/dL (12.9-16.9); Immature Granulocytes % 0.4 % (0-4); Immature Platelets 4.5 % (1.1-6.1); Lymphocytes # 0.7 K/mcL (0.6-4.6); Lymphocytes % 7.7 %; Mean Corpuscular HGB Conc 29.7 g/dL (31.6-35.5); Mean Corpuscular Hemoglobin 23.8 pg (28.0-33.3); Monocytes # 0.8 K/mcL (0.0-1.3); Monocytes % 9.1 %; Neutrophils # 6.9 K/mcL (1.6-8.9); Platelet Count 295 K/mcL (140-400); Red Blood Count 3.45 M/mcL (4.19-5.50); Red Cell Distribution Width 21.7 % (11.5-14.5); Segmented Neutrophils % 81.9 %
[2017-07-17 01:08] LABS: Alanine Aminotransferase 16 Units/L (7-52); Albumin 2.3 g/dL (3.5-5.7); Albumin/Globulin Ratio 0.9 (1.1-2.2); Alkaline Phosphatase 55 Units/L (34-104); Aspartate Amino Transferase 39 Units/L (13-39); BUN/Creatinine Ratio 28 (6-26); Blood Urea Nitrogen 16 mg/dL (8-23); Calcium 7.8 mg/dL (8.6-10.3); Carbon Dioxide 29 mEq/L (23-29); Chloride 112 mEq/L (98-107); Globulin 2.5 g/dL (2.4-3.5); Glucose 143 mg/dL (70-105); Osmolality,Calculated 302 (280-300); Potassium 3.1 mEq/L (3.5-5.1); Sodium 144 mEq/L (136-145); Total Protein 4.8 g/dL (6.4-8.9); eGFR For African Americans > 60 (> 60); eGFR For Non-African Americans > 60 (> 60)
[2017-07-17 02:22] LABS: Anisocytosis 1+ (Not Present); Microcytosis Present (Not Present); Platelet Estimate Normal (Normal); Poikilocytosis 1+ (Not Present); Reactive Lymphocytes Present (Not Present); Toxic Granulation Present (Not Present)
[2017-07-17 02:23] LABS: Hypochromasia Present (Not Present)
[2017-07-17] MEDS ORDERED: Lidocaine Viscous Oral Soln 15 ML SOLUTION MM ONE (03:23)
[2017-07-17] MEDS: OXYCODONE Oral CONC 10 MG/0.5 ML ORAL.SYG SL PRN (04:33)
[2017-07-17] MEDS: *HR* Heparin 5,000 UNIT/ML VIAL SQ SCH (06:06)
[2017-07-17] MEDS: D5% in 0.45% NACL 1,000 ML IVC SCH ×2 (06:06→18:33)
[2017-07-17] MEDS: *HR* LORazepam 2 MG/ML VIAL IVP SCH ×3 (06:06→22:41)
[2017-07-17] MEDS: Budesonide/Formoterol 160/4.5 MDI IH SCH ×2 (07:40→19:34)
[2017-07-17] MEDS: Ipratropium/Albuterol Neb 3 ML IH PRN (07:40)
--- NOTE | 2017-07-17 09:09 | Internal Med Progress Note ---
<Houston Prince - Last Filed: 07/17/17 15:50> Date of Encounter: 07/17/17 Time of Encounter: 09:04 - Assessment and plan (1) GI bleed Current Visit: Yes Status: Suspected Assessment and plan: 82/male with Multiple comorbid conditions: Hypertension/hyperlipidemia/A. fib/ coronary artery disease with recent 2 stents with current anticoagulant: Aspirin /Plavix/Xarelto came to emergency room with worsening vomiting along with progressively dark stool for several days. Stool guaiac was positive. Patient underwent partial colectomy for small bowel obstruction and incisional hernia. Patient continued to have decreasing hemoglobin and surgery recommends endoscopy and colonoscopy after patient has stabilized from recovery of SBO. Mr. Yeung is nothing by mouth postoperatively with hypoactive bowel sounds no bowel movements or flatulence and unable to take oral anticoagulants. Discussion between primary team and cardiology with recommendations for 300 mg rectal aspirin and heparin gtt. if tolerated, to help prevent potential stent thrombosis. He is off dual anti-platelet therapy with a recent stents placed on 06/19/2017 and only on rectal aspirin increasing his risk of stent thrombosis with high mortality risk. - Surgery: IV PPI/blood transfusions/NG placement/CT abdomen and pelvis/close monitoring/nothing by mouth/plan for endoscopy when patient is more stable 07/17: Restart heparin drip as discussed, patient does have some mild red tinge to NG tube output concerning for potential gastric ulcers also had hematuria last evening which tapered off this morning. General surgery aware, will continue to monitor hemoglobin replace. He sees as necessary. plan - Surgery/cardiology recommendations appreciated - We will closely monitor patient's hemoglobin/hematocrit. Every 8 hours H&H - We will recommend colonoscopy and endoscopy when patient is stable for procedure. Qualifiers: GI bleed type/associated pathology: gastritis Gastritis type: acute gastritis Qualified Code(s): K29.01 - Acute gastritis with bleeding (2) Hypertension Current Visit: No Status: Chronic Assessment and plan: Blood pressure stable, continue to hold antihypertensive medications. Patient is nothing by mouth. Qualifiers: Hypertension type: essential hypertension Qualified Code(s): I10 - Essential (primary) hypertension (3) CAD (coronary artery disease) Current Visit: Yes Status: Chronic Assessment and plan: 82-year-old male with significance vascular disease with recent drug-eluting stent to the proximal LAD 06/19/2017 recently on Plavix, aspirin for dual antiplatelet therapy and Xarelto for Atrial fibrillation. He has had multiple previous vascular surgeries with femorofemoral bypass and repair completed at this facility. - Echocardiogram from June demonstrates an ejection fraction of 35-40% with current stable systolic heart failure. - He was admitted with anemia in the setting of small bowel obstruction and GI bleed. He has been off aspirin and Plavix with recent stent increasing risk for stent thrombosis and high mortality rate. He has since been on rectal aspirin 300 mg daily and heparin GTT. The heparin drip was discontinued yesterday in the setting of anemia requiring 2 units PRBC transfusion. His atrial fibrillation anticoagulation has been held in the setting of GI bleed. 07/17/2017: Hemoglobin 8.7, discussed risks and benefits restarting heparin drip with Mr. Yeung and his family, emphasized the risk of stent rethrombosis and if necessary further blood transfusions. They are agreeable to restarting heparin drip and continue monitoring hemoglobin levels. We will give a EPIV for axis if necessary. Plan: - Restart heparin drip, continue ASA rectally - Continue cardiac monitoring - Risks and benefits discussed with patient and family. Qualifiers: Coronary Disease-Associated Artery/Lesion type: [place] artery [place] vs. transplanted heart: [place] heart Associated angina: without angina Qualified Code(s): I25.10 - Atherosclerotic heart disease of [place] coronary artery without angina pectoris (4) Status post small bowel resection Current Visit: Yes Status: Acute Assessment and plan: 07/16/2017 Postoperative day 3 partial colectomy with 10 cm small bowel resected secondary to SBO and incisional hernia. - Surgical management and recommendations from Dr. Swanson with general surgery appreciated (5) Systolic heart failure Current Visit: Yes Status: Chronic Assessment and plan: Stable systolic heart failure with ejection fraction of 35-40% with recent JATINDER placed 06/19/2017. - Cardiology following appreciate recommendations - Continued on Aldactone, Plavix held in the setting of GI bleed and nothing by mouth, heparin drip, aspirin 300 mg rectally, unable to be on beta risa and JOSELITO inhibitor due to hypotension and nothing by mouth. - Continue to monitor, strict intake and output monitoring, daily weights - When able to take oral intake will restrict to 2 L fluid restrictions, 2 g sodium restrictions. Qualifiers: Heart failure chronicity: chronic Qualified Code(s): I50.22 - Chronic systolic (congestive) heart failure (6) Peripheral vascular disease Current Visit: No Status: Chronic Assessment and plan: Known peripheral vascular disease. Chronic history. (7) PAF (paroxysmal atrial fibrillation) Current Visit: Yes Status: Chronic Assessment and plan: Known history of proximal atrial fibrillation currently heart rate is irregularly irregular. Anticoagulation held in the setting of GI bleed - Continue to monitor rate on cardiac monitoring - [id number] (Age, HTN, CAD, CHF). High CVA risk, but in setting of GI bleed need to stop Xarelto. (8) DVT prophylaxis Current Visit: No Status: Acute Assessment and plan: Heparin drip - Subjective Interval history: Mr. Yeung 82-year-old male has been seen and evaluated at patient bedside this morning. He is alert awake interactive in no acute distress. He states that he is feeling okay, asking for ice chips. Long discussion with him regarding restarting heparin potential risks versus benefits for which she is agreeable to starting. Discussed with general surgery with plans to start heparin drip, continue to watch NG output and Williamson catheter output. Patient has active bowel sounds today we will wait for surgery's recommendations on starting diet. - Constitutional Vitals: Temp Pulse Resp BP Pulse Ox 98.8 F 82 16 116/58 98 07/17/17 06:50 07/17/17 06:50 07/17/17 07:42 07/17/17 06:50 07/17/17 07:42 General appearance: Present: mild distress, A&O X 3 Exam: General: Patient alert, awake, oriented 3, interactive, in no acute distress HEENT: Normocephalic, atraumatic, pupils equal reactive to light, oral mucosa dry, uvula midline, neck supple trachea midline no palpable lymphadenopathy, no thyromegaly. Chest: Symmetric bilateral correlating with respiratory effort, effort nonlabored. Cardiac: Regular rate and rhythm, positive S1 and S2. no bruits appreciated bilateral carotids, Radial pulses 2+ bilateral, posterior tibial and dorsal pedal pulses 2+ bilateral. Respiratory: Diffuse rhonchi Abdomen: Mildly distended, tympanic, mild tenderness to light palpation. Midline abdominal incision healing well without drainage or discharge. Active bowel sounds. Extremities: Symmetric bilateral, bilateral lower extremities without erythema or edema patient moving all 4 extremities spontaneously. Neurologic: No focal deficits appreciated on examination. Face symmetric, muscle strength symmetric bilateral upper and lower extremities. Internal Medicine: Result - Labs CBC & Chem 7: 07/17/17 12:02 07/17/17 00:06 Labs: Short CBC 07/16/17 07/17/17 Range/Units 12:37 00:06 WBC 8.4 (4.3-11.1) K/mcL Hgb 8.9 L 8.2 L (12.9-16.9) g/dL Hct 30.3 L 27.6 L (37.5-50.1) % Plt Count 295 (140-400) K/mcL Neutrophils # 6.9 (1.6-8.9) K/mcL BMP 07/17/17 00:06 Sodium 144 Potassium 3.1 L Chloride 112 H Carbon Dioxide 29 BUN 16 Creatinine 0.58 L Glucose 143 H Calcium 7.8 L Liver Function 07/17/17 Range/Units 00:06 Total Bilirubin 1.0 (0.3-1.0) mg/dL AST 39 (13-39) Units/L ALT 16 (7-52) Units/L Alkaline Phosphatase 55 (34-104) Units/L Albumin 2.3 L (3.5-5.7) g/dL - ABG Interpretation ABG results: PT/INR, D-dimer PT 16.6 Seconds (9.4-12.1) H 07/14/17 16:41 - Impressions Impressions KUB X-Ray 07/17/17 04:22 IMPRESSION: The enteric tube is in good position in the stomach. Progressive left basilar pleuroparenchymal disease. D/ / Don Morin MD / Don Morin MD Interpreting Provider: Don Morin MD - VTE Reasons for not Prescribing Prophylaxis: Not indicated-Anticoagulated or INR therapeutic Documentation of Mechanical Device: Intermittent pneumatic compression device Consult Discharge Plan - Plan Referrals: Dane Justin MD [Primary Care Provider] - <Hemal Mcdonald - Last Filed: 07/17/17 17:42> Date of Encounter: 07/17/17 - Assessment and plan (1) Incisional hernia of anterior abdominal wall with obstruction Current Visit: Yes Status: Acute (2) CAD (coronary artery disease) Current Visit: Yes Status: Chronic Qualifiers: Coronary Disease-Associated Artery/Lesion type: [place] artery [place] vs. transplanted heart: [place] heart Associated angina: without angina Qualified Code(s): I25.10 - Atherosclerotic heart disease of [place] coronary artery without angina pectoris (3) Status post small bowel resection Current Visit: Yes Status: Acute (4) Anemia Current Visit: Yes Status: Acute Qualifiers: Anemia type: other cause Other causes of anemia: acute posthemorrhagic Qualified Code(s): D62 - Acute posthemorrhagic anemia (5) GI bleed Current Visit: Yes Status: Suspected Qualifiers: GI bleed type/associated pathology: gastritis Gastritis type: acute gastritis Qualified Code(s): K29.01 - Acute gastritis with bleeding (6) Systolic heart failure Current Visit: Yes Status: Chronic Qualifiers: Heart failure chronicity: chronic Qualified Code(s): I50.22 - Chronic systolic (congestive) heart failure (7) PAF (paroxysmal atrial fibrillation) Current Visit: Yes Status: Chronic (8) Hypertension Current Visit: No Status: Chronic Qualifiers: Hypertension type: essential hypertension Qualified Code(s): I10 - Essential (primary) hypertension - Constitutional Vitals: Temp Pulse Resp BP Pulse Ox 99 F 88 16 130/69 100 07/17/17 15:19 07/17/17 15:19 07/17/17 15:19 07/17/17 15:19 07/17/17 15:19 Internal Medicine: Result - Labs CBC & Chem 7: 07/17/17 12:02 07/17/17 00:06 Labs: Short CBC 07/17/17 07/17/17 07/17/17 Range/Units 00:06 10:29 12:02 WBC 8.4 8.1 (4.3-11.1) K/mcL Hgb 8.2 L 8.5 L 8.7 L (12.9-16.9) g/dL Hct 27.6 L 29.2 L 29.8 L (37.5-50.1) % Plt Count 295 282 (140-400) K/mcL Neutrophils # 6.9 (1.6-8.9) K/mcL BMP 07/17/17 00:06 Sodium 144 Potassium 3.1 L Chloride 112 H Carbon Dioxide 29 BUN 16 Creatinine 0.58 L Glucose 143 H Calcium 7.8 L Liver Function 07/17/17 Range/Units 00:06 Total Bilirubin 1.0 (0.3-1.0) mg/dL AST 39 (13-39) Units/L ALT 16 (7-52) Units/L Alkaline Phosphatase 55 (34-104) Units/L Albumin 2.3 L (3.5-5.7) g/dL - ABG Interpretation ABG results: PT/INR, D-dimer PT 37.5 Seconds (9.4-12.1) H D 07/17/17 10:29 - Impressions Impressions KUB X-Ray 07/17/17 04:22 IMPRESSION: The enteric tube is in good position in the stomach. Progressive left basilar pleuroparenchymal disease. D/ / Don Morin MD / Don Morin MD Interpreting Provider: Don Morin MD - Attending Attestation I examined this patient and my medical decision-making was reviewed with the Resident Physician on 07/17/17. I agree with the documented findings, disposition and treatment plan as described except to the extent set forth below. Mr Yeung is currently admitted for acute bowel obstruction s/p resection. He remains moderate to high risk due to potential for worsening clinical and cardiac status. Mr Yeung is resting comfortably at this time. No fever. H/H has been relatively stable. He has some "pink" noted in NG and williamson. Exam Alert. Comfortable Mucus membranes dry Heart reg No wheeze No edema I/P 1. S/P bowel resection 2. Cardiac stent - heparin restarted today. Low dose, no bolus. Monitor H/H. Hopefully will be able to take PO soon and restart Plavix. Further diagnoses and plan as above.
[2017-07-17] MEDS: Artificial Tears SOLN 15 ML BOTTLE BOTH EYES SCH ×4 (09:48→20:00)
[2017-07-17] MEDS: Pantoprazole 40 MG VIAL IVP SCH ×2 (09:48→20:00)
[2017-07-17] MEDS ORDERED: *HR* Heparin 5,000 UNIT/ML VIAL IVP PRN ×2 (09:50)
--- NOTE | 2017-07-17 10:21 | General Surgery Progress Note ---
<Melina,Sirisha Tereza - Last Filed: 07/17/17 13:38> Date of Encounter: 07/17/17 Time of Encounter: 09:15 - Assessment and Plan (1) Status post small bowel resection Current Visit: Yes Status: Acute POD #4 #1 repair of incisional hernia #2 small bowel resection with Dr. Swanson Continue bowel rest while awaiting return of bowel function NG tube to low intermittent wall suction IV fluids Supportive care and pain control Incentive spirometer every 1 hour while awake Out of bed to chair and ambulate with assistance 3 times per day Add Reglan scheduled for the next 48 hours PPI therapy daily May restart anticoagulation- management per primary medicine team (2) Anemia Current Visit: Yes Status: Acute Stable- 8.4>8.9>8.5 May resume anticoagulation- management per primary medical team Qualifiers: Anemia type: other cause Other causes of anemia: acute posthemorrhagic Qualified Code(s): D62 - Acute posthemorrhagic anemia (3) Hypercoagulable state Current Visit: No Status: Chronic INR- 3.4 today Subjective Patient reports: no new complaints, feels better, still having pain, pain is less, no flatus, no bowel movement, afebrile Objective Vital Signs - Last 8 Hours Temp Pulse Resp BP Pulse Ox 07/17/17 07:42 16 98 07/17/17 06:50 98.8 F 82 16 116/58 98 07/17/17 04:43 98.5 F 85 17 146/69 89 Intake and Output 07/16/17 07/17/17 07/17/17 23:59 07:59 15:59 Intake Total 1000 / 1000 1000 / 1000 0 / 0 Output Total 350 / 350 200 / 200 250 / 250 Balance 650 / 650 800 / 800 -250 / -250 Intake: IV Fluids 1000 / 1000 1000 / 1000 D5% And 0.45% Nacl 1000 Ml Bag 1000 / 1000 1000 / 1000 1,000 ML @ 75 mls/hr IVC . [id number] [id number] Rx#:[id number] Oral 0 / 0 0 / 0 0 / 0 Output: Gastric Tube Lavage Amount 0 / 0 Right Nare 0 / 0 Catheter 350 / 350 200 / 200 250 / 250 Gastric Drainage 0 / 0 0 / 0 Right Nare 0 / 0 Other: Weight 64.6 kg Blood Glucose* 134 144 Patient Weight 07/17/17 23:59 Weight 64.6 kg - General physical appearance well developed, no distress - Eyes PERRL, normal ocular movement - ENT dry mucosa, atraumatic, normocephalic - Neck Neck exam: trachea midline - Respiratory normal respiratory effort, clear to auscultation, other (diminished bibasilar bases) - Cardiovascular Cardiovascular exam: Present: RRR - Abdomen Abdomen: Present: soft, tender (expected post-operative tenderness), wound (NG tube to LIWS with 300ml of bilious drainage noted today) - Incision Incision: Present: intact, serous (scant amount of serous drainae noted from middle of midline incision, no surrounding erythema or induration present) - Genitourinary other (Ta catheter to straight drain with clear, yellow urine) - Neurologic CN 2-12 grossly intact - Musculoskeletal other (Moderate deconditioning noted) - Psychiatric oriented to person, oriented to place, speech is normal - Labs 07/17/17 12:02 07/17/17 00:06 Diabetes panel 07/17/17 Range/Units 00:06 Sodium 144 (136-145) mEq/L Potassium 3.1 L (3.5-5.1) mEq/L Chloride 112 H (98-107) mEq/L Carbon Dioxide 29 (23-29) mEq/L BUN 16 (8-23) mg/dL Creatinine 0.58 L (0.70-1.30) mg/dL Glucose 143 H (70-105) mg/dL Calcium 7.8 L (8.6-10.3) mg/dL AST 39 (13-39) Units/L ALT 16 (7-52) Units/L Alkaline Phosphatase 55 (34-104) Units/L Albumin 2.3 L (3.5-5.7) g/dL Calcium panel 07/17/17 Range/Units 00:06 Calcium 7.8 L (8.6-10.3) mg/dL Albumin 2.3 L (3.5-5.7) g/dL Pituitary panel 07/17/17 Range/Units 00:06 Sodium 144 (136-145) mEq/L Potassium 3.1 L (3.5-5.1) mEq/L Chloride 112 H (98-107) mEq/L Carbon Dioxide 29 (23-29) mEq/L BUN 16 (8-23) mg/dL Creatinine 0.58 L (0.70-1.30) mg/dL Glucose 143 H (70-105) mg/dL Calcium 7.8 L (8.6-10.3) mg/dL Adrenal panel 07/17/17 Range/Units 00:06 Sodium 144 (136-145) mEq/L Potassium 3.1 L (3.5-5.1) mEq/L Chloride 112 H (98-107) mEq/L Carbon Dioxide 29 (23-29) mEq/L BUN 16 (8-23) mg/dL Creatinine 0.58 L (0.70-1.30) mg/dL Glucose 143 H (70-105) mg/dL Calcium 7.8 L (8.6-10.3) mg/dL Total Bilirubin 1.0 (0.3-1.0) mg/dL AST 39 (13-39) Units/L ALT 16 (7-52) Units/L Alkaline Phosphatase 55 (34-104) Units/L Albumin 2.3 L (3.5-5.7) g/dL - VTE Reasons for not Prescribing Prophylaxis: Not indicated-Anticoagulated or INR therapeutic Documentation of Mechanical Device: Intermittent pneumatic compression device Consult Discharge Plan - Plan Referrals: Dane Justin MD [Primary Care Provider] - - Attending Attestation For this encounter, I have reviewed the [employer] or PA documentation, treatment plan, and medical decision making; and I have had face to face time with this patient. <Dane Swanson - Last Filed: 07/17/17 16:25> Date of Encounter: 07/17/17 - Assessment and Plan (1) Anemia Current Visit: Yes Status: Acute Qualifiers: Anemia type: other cause Other causes of anemia: acute posthemorrhagic Qualified Code(s): D62 - Acute posthemorrhagic anemia Objective Vital Signs - Last 8 Hours Temp Pulse Resp BP Pulse Ox 07/17/17 15:19 99 F 88 16 130/69 100 07/17/17 11:41 97.6 F 84 16 123/60 97 Intake and Output 07/17/17 07/17/17 07/17/17 07:59 15:59 23:59 Intake Total 1000 / 1000 0 / 0 Output Total 200 / 200 350 / 350 Balance 800 / 800 -350 / -350 Intake: IV Fluids 1000 / 1000 D5% And 0.45% Nacl 1000 Ml Bag 1000 / 1000 1,000 ML @ 75 mls/hr IVC . [id number] [facility] Rx#:[id number] Oral 0 / 0 0 / 0 Output: Gastric Tube Lavage Amount 100 / 100 Right Nare 100 / 100 Catheter 200 / 200 250 / 250 Gastric Drainage 0 / 0 Right Nare 0 / 0 Other: Weight 64.6 kg Blood Glucose* 144 153 Patient Weight 07/17/17 23:59 Weight 64.6 kg - Labs 07/17/17 12:02 07/17/17 00:06 Diabetes panel 07/17/17 Range/Units 00:06 Sodium 144 (136-145) mEq/L Potassium 3.1 L (3.5-5.1) mEq/L Chloride 112 H (98-107) mEq/L Carbon Dioxide 29 (23-29) mEq/L BUN 16 (8-23) mg/dL Creatinine 0.58 L (0.70-1.30) mg/dL Glucose 143 H (70-105) mg/dL Calcium 7.8 L (8.6-10.3) mg/dL AST 39 (13-39) Units/L ALT 16 (7-52) Units/L Alkaline Phosphatase 55 (34-104) Units/L Albumin 2.3 L (3.5-5.7) g/dL Calcium panel 07/17/17 Range/Units 00:06 Calcium 7.8 L (8.6-10.3) mg/dL Albumin 2.3 L (3.5-5.7) g/dL Pituitary panel 07/17/17 Range/Units 00:06 Sodium 144 (136-145) mEq/L Potassium 3.1 L (3.5-5.1) mEq/L Chloride 112 H (98-107) mEq/L Carbon Dioxide 29 (23-29) mEq/L BUN 16 (8-23) mg/dL Creatinine 0.58 L (0.70-1.30) mg/dL Glucose 143 H (70-105) mg/dL Calcium 7.8 L (8.6-10.3) mg/dL Adrenal panel 07/17/17 Range/Units 00:06 Sodium 144 (136-145) mEq/L Potassium 3.1 L (3.5-5.1) mEq/L Chloride 112 H (98-107) mEq/L Carbon Dioxide 29 (23-29) mEq/L BUN 16 (8-23) mg/dL Creatinine 0.58 L (0.70-1.30) mg/dL Glucose 143 H (70-105) mg/dL Calcium 7.8 L (8.6-10.3) mg/dL Total Bilirubin 1.0 (0.3-1.0) mg/dL AST 39 (13-39) Units/L ALT 16 (7-52) Units/L Alkaline Phosphatase 55 (34-104) Units/L Albumin 2.3 L (3.5-5.7) g/dL - Attending Attestation The patient is seen and evaluated on afternoon rounds. His abdomen is still quiet with no bowel sounds. His lung clearance is much better and lung sounds are clear today on auscultation. We will continue nasogastric tube drainage and await bowel function. Add Devan Swanson MD FACS
[2017-07-17] MEDS: Heparin 25,000 UNIT/500 ML D5W 25,000 UNIT/500 ML BAG IVC SCH (10:39)
[2017-07-17 11:28] LABS: Hematocrit 29.2 % (37.5-50.1); Hemoglobin 8.5 g/dL (12.9-16.9); Mean Corpuscular HGB Conc 29.1 g/dL (31.6-35.5); Mean Corpuscular Hemoglobin 23.2 pg (28.0-33.3); Mean Corpuscular Volume 79.8 fL (83.0-100.0); Mean Platelet Volume 10.6 fL (9.4-12.4); Platelet Count 282 K/mcL (140-400); Red Blood Count 3.66 M/mcL (4.19-5.50); Red Cell Distribution Width 21.9 % (11.5-14.5)
[2017-07-17 11:31] LABS: Activated Partial Thrombo Time 36.5 Seconds (26.0-36.0)
[2017-07-17 11:35] LABS: INR 3.4; Prothrombin Time 37.5 Seconds (9.4-12.1)
[2017-07-17 12:10] LABS: Hematocrit 29.8 % (37.5-50.1); Hemoglobin 8.7 g/dL (12.9-16.9)
[2017-07-17] MEDS ORDERED: Potassium Chloride 40 MEQ, Lidocaine 1% 2 ML in D5% in Water 500 ML IVPB ONE (13:19)
[2017-07-17] MEDS: Chloraseptic Spray 177 ML BOTTLE MM PRN ×2 (14:39→18:38)
[2017-07-17] MEDS: Metoclopramide 10 MG/2 ML VIAL IVP SCH (16:53)
[2017-07-17 18:21] LABS: Hematocrit 28.8 % (37.5-50.1); Hemoglobin 8.2 g/dL (12.9-16.9)
[2017-07-17 21:49] LABS: Hematocrit 29.1 % (37.5-50.1); Hemoglobin 8.5 g/dL (12.9-16.9)
[2017-07-18] MEDS: Metoclopramide 10 MG/2 ML VIAL IVP SCH ×4 (00:09→17:03)
[2017-07-18] MEDS: OXYCODONE Oral CONC 10 MG/0.5 ML ORAL.SYG SL PRN (03:08)
[2017-07-18 04:43] LABS: Basophils % 0.1 %; Eosinophils # 0.1 K/mcL (0.0-0.6); Eosinophils % 0.9 %; Hematocrit 26.9 % (37.5-50.1); Immature Granulocytes % 0.5 % (0-4); Lymphocytes # 1.3 K/mcL (0.6-4.6); Lymphocytes % 15.3 %; Mean Corpuscular HGB Conc 29.7 g/dL (31.6-35.5); Mean Corpuscular Hemoglobin 23.6 pg (28.0-33.3); Mean Corpuscular Volume 79.4 fL (83.0-100.0); Mean Platelet Volume 10.3 fL (9.4-12.4); Monocytes % 11.3 %; Neutrophils # 6.1 K/mcL (1.6-8.9); Platelet Count 255 K/mcL (140-400); Red Blood Count 3.39 M/mcL (4.19-5.50); Red Cell Distribution Width 21.6 % (11.5-14.5); Segmented Neutrophils % 71.9 %
[2017-07-18 05:04] LABS: Alanine Aminotransferase 15 Units/L (7-52); Albumin 2.2 g/dL (3.5-5.7); Albumin/Globulin Ratio 0.9 (1.1-2.2); Alkaline Phosphatase 57 Units/L (34-104); Aspartate Amino Transferase 27 Units/L (13-39); BUN/Creatinine Ratio 19 (6-26); Bilirubin,Total 0.9 mg/dL (0.3-1.0); Blood Urea Nitrogen 11 mg/dL (8-23); Calcium 7.5 mg/dL (8.6-10.3); Carbon Dioxide 29 mEq/L (23-29); Chloride 110 mEq/L (98-107); Globulin 2.4 g/dL (2.4-3.5); Glucose 140 mg/dL (70-105); Osmolality,Calculated 296 (280-300); Potassium 2.9 mEq/L (3.5-5.1); Sodium 142 mEq/L (136-145); Total Protein 4.6 g/dL (6.4-8.9); eGFR For African Americans > 60 (> 60); eGFR For Non-African Americans > 60 (> 60)
[2017-07-18] MEDS: *HR* LORazepam 2 MG/ML VIAL IVP SCH ×3 (06:04→21:37)
[2017-07-18] MEDS: D5% in 0.45% NACL 1,000 ML IVC SCH ×2 (06:05→19:26)
[2017-07-18] MEDS ORDERED: Potassium Chloride 40 MEQ, Lidocaine 1% 2 ML in D5% in Water 500 ML IVPB ONE (06:58)
[2017-07-18] MEDS: Budesonide/Formoterol 160/4.5 MDI IH SCH ×2 (08:02→23:17)
[2017-07-18] MEDS: Artificial Tears SOLN 15 ML BOTTLE BOTH EYES SCH ×4 (08:51→21:38)
[2017-07-18] MEDS: Pantoprazole 40 MG VIAL IVP SCH ×2 (08:52→21:38)
--- NOTE | 2017-07-18 09:31 | Internal Med Progress Note ---
<Houston Prince - Last Filed: 07/18/17 14:17> Date of Encounter: 07/18/17 Time of Encounter: 09:28 - Assessment and plan (1) GI bleed Current Visit: Yes Status: Suspected Assessment and plan: 82/male with Multiple comorbid conditions: Hypertension/hyperlipidemia/A. fib/ coronary artery disease with recent 2 stents with current anticoagulant: Aspirin /Plavix/Xarelto came to emergency room with worsening vomiting along with progressively dark stool for several days. Stool guaiac was positive. Patient underwent partial colectomy for small bowel obstruction and incisional hernia. Patient continued to have decreasing hemoglobin and surgery recommends endoscopy and colonoscopy after patient has stabilized from recovery of SBO. Mr. Yeung is nothing by mouth postoperatively with hypoactive bowel sounds no bowel movements or flatulence and unable to take oral anticoagulants. Discussion between primary team and cardiology with recommendations for 300 mg rectal aspirin and heparin gtt. if tolerated, to help prevent potential stent thrombosis. He is off dual anti-platelet therapy with a recent stents placed on 06/19/2017 and only on rectal aspirin increasing his risk of stent thrombosis with high mortality risk. - Surgery: IV PPI/blood transfusions/NG placement/CT abdomen and pelvis/close monitoring/nothing by mouth/plan for endoscopy when patient is more stable 07/17: Restart heparin drip as discussed, patient does have some mild red tinge to NG tube output concerning for potential gastric ulcers also had hematuria last evening which tapered off this morning. General surgery aware, will continue to monitor hemoglobin replace. He sees as necessary. 07/18: Heparin drip restarted yesterday, hemoglobin 8.0 down from 8.5 yesterday. Patient is at high risk for continued bleed but benefits outweigh the risk at this time. plan - Surgery/cardiology recommendations appreciated - We will closely monitor patient's hemoglobin/hematocrit. Every 8 hours H&H - We will recommend colonoscopy and endoscopy when patient is stable for procedure. Qualifiers: GI bleed type/associated pathology: gastritis Gastritis type: acute gastritis Qualified Code(s): K29.01 - Acute gastritis with bleeding (2) Acute blood loss anemia Current Visit: Yes Status: Acute Assessment and plan: Acute blood loss anemia in the setting of GI bleed, status post partial small bowel resection. Patient is a recent cardiac stent placement 06/19/2017 requiring dual antiplatelet therapy. Risks and benefits were discussed with the patient and heparin drip was restarted, rectal aspirin daily. - Hemoglobin is demonstrated a slow downtrend, will replace PRBCs when hemoglobin falls below 8.0. - Patient will need EGD and colonoscopy for evaluation of bleed when he is stable. (3) Hypertension Current Visit: No Status: Chronic Assessment and plan: Blood pressure stable, continue to hold antihypertensive medications. Patient is nothing by mouth. Qualifiers: Hypertension type: essential hypertension Qualified Code(s): I10 - Essential (primary) hypertension (4) CAD (coronary artery disease) Current Visit: Yes Status: Chronic Assessment and plan: 82-year-old male with significance vascular disease with recent drug-eluting stent to the proximal LAD 06/19/2017 recently on Plavix, aspirin for dual antiplatelet therapy and Xarelto for Atrial fibrillation. He has had multiple previous vascular surgeries with femorofemoral bypass and repair completed at this facility. - Echocardiogram from June demonstrates an ejection fraction of 35-40% with current stable systolic heart failure. - He was admitted with anemia in the setting of small bowel obstruction and GI bleed. He has been off aspirin and Plavix with recent stent increasing risk for stent thrombosis and high mortality rate. He has since been on rectal aspirin 300 mg daily and heparin GTT. The heparin drip was discontinued yesterday in the setting of anemia requiring 2 units PRBC transfusion. His atrial fibrillation anticoagulation has been held in the setting of GI bleed. 07/17/2017: Hemoglobin 8.7, discussed risks and benefits restarting heparin drip with Mr. Yeung and his family, emphasized the risk of stent rethrombosis and if necessary further blood transfusions. They are agreeable to restarting heparin drip and continue monitoring hemoglobin levels. We will give a EPIV for axis if necessary. 07/18/2017: Stable. Plan: - Restart heparin drip, continue ASA rectally - Continue cardiac monitoring - Risks and benefits discussed with patient and family. Qualifiers: Coronary Disease-Associated Artery/Lesion type: douglas artery [place] vs. transplanted heart: douglas heart Associated angina: without angina Qualified Code(s): I25.10 - Atherosclerotic heart disease of douglas coronary artery without angina pectoris (5) Status post small bowel resection Current Visit: Yes Status: Acute Assessment and plan: 07/16/2017 Postoperative day 3 partial colectomy with 10 cm small bowel resected secondary to SBO and incisional hernia. - Surgical management and recommendations from Dr. Swanson with general surgery appreciated (6) Systolic heart failure Current Visit: Yes Status: Chronic Assessment and plan: Stable systolic heart failure with ejection fraction of 35-40% with recent JATINDER placed 06/19/2017. - Cardiology following appreciate recommendations - Continued on Aldactone, Plavix held in the setting of GI bleed and nothing by mouth, heparin drip, aspirin 300 mg rectally, unable to be on beta risa and JOSELITO inhibitor due to hypotension and nothing by mouth. - Continue to monitor, strict intake and output monitoring, daily weights - When able to take oral intake will restrict to 2 L fluid restrictions, 2 g sodium restrictions. Qualifiers: Heart failure chronicity: chronic Qualified Code(s): I50.22 - Chronic systolic (congestive) heart failure (7) Peripheral vascular disease Current Visit: No Status: Chronic Assessment and plan: Known peripheral vascular disease. Chronic history. (8) PAF (paroxysmal atrial fibrillation) Current Visit: Yes Status: Chronic Assessment and plan: Known history of proximal atrial fibrillation currently heart rate is irregularly irregular. Anticoagulation held in the setting of GI bleed - Continue to monitor rate on cardiac monitoring - [id number] (Age, HTN, CAD, CHF). High CVA risk, but in setting of GI bleed need to stop Xarelto. (9) Decubitus ulcer of coccyx, stage 2 Current Visit: Yes Status: Acute Assessment and plan: Stage II decubitus ulcer of the coccyx identified today. Patient has poor nutrition, immobility secondary to current medical condition. - Picc line for TPN, D/c EPIV. Plan: - Wound care - Turn patient frequently - Patient may need TPN for nutritional status. - Frequent decub ulcer checks. (10) DVT prophylaxis Current Visit: No Status: Acute Assessment and plan: Heparin drip - Subjective Interval history: Mr. Yeung 82-year-old male has been seen and evaluated at patient bedside this morning. He is alert awake interactive in no acute distress. He does have positive bowel sounds denies any bowel movements. Has NG tube in place they finds mildly discomforting. New findings of decubitus ulcer on his coccyx. - Constitutional Vitals: Temp Pulse Resp BP Pulse Ox 97.9 F 98 18 125/75 99 07/18/17 06:44 07/18/17 06:44 07/18/17 08:02 07/18/17 06:44 07/18/17 08:02 General appearance: Present: mild distress, A&O X 3 Exam: General: Patient alert, awake, oriented 3, interactive, in no acute distress HEENT: Normocephalic, atraumatic, pupils equal reactive to light, oral mucosa dry, uvula midline, neck supple trachea midline no palpable lymphadenopathy, no thyromegaly. Chest: Symmetric bilateral correlating with respiratory effort, effort nonlabored. Cardiac: Regular rate and rhythm, positive S1 and S2. no bruits appreciated bilateral carotids, Radial pulses 2+ bilateral, posterior tibial and dorsal pedal pulses 2+ bilateral. Respiratory: crackles in b/l lung bases Abdomen: Mildly distended, tympanic, mild tenderness to light palpation. Midline abdominal incision healing well without drainage or discharge. Active bowel sounds. Extremities: Symmetric bilateral, bilateral lower extremities without erythema or edema patient moving all 4 extremities spontaneously. Stage II Coxygeal decub. Neurologic: No focal deficits appreciated on examination. Face symmetric, muscle strength symmetric bilateral upper and lower extremities. Internal Medicine: Result - Labs CBC & Chem 7: 07/18/17 04:38 07/18/17 04:38 Labs: Short CBC 07/17/17 07/17/17 07/17/17 Range/Units 10:29 12:02 17:55 WBC 8.1 (4.3-11.1) K/mcL Hgb 8.5 L 8.7 L 8.2 L (12.9-16.9) g/dL Hct 29.2 L 29.8 L 28.8 L (37.5-50.1) % Plt Count 282 (140-400) K/mcL Neutrophils # (1.6-8.9) K/mcL 07/17/17 07/18/17 Range/Units 21:37 04:38 WBC 8.5 (4.3-11.1) K/mcL Hgb 8.5 L 8.0 L (12.9-16.9) g/dL Hct 29.1 L 26.9 L (37.5-50.1) % Plt Count 255 (140-400) K/mcL Neutrophils # 6.1 (1.6-8.9) K/mcL BMP 07/18/17 04:38 Sodium 142 Potassium 2.9 L Chloride 110 H Carbon Dioxide 29 BUN 11 Creatinine 0.58 L Glucose 140 H Calcium 7.5 L Liver Function 07/18/17 Range/Units 04:38 Total Bilirubin 0.9 (0.3-1.0) mg/dL AST 27 (13-39) Units/L ALT 15 (7-52) Units/L Alkaline Phosphatase 57 (34-104) Units/L Albumin 2.2 L (3.5-5.7) g/dL - ABG Interpretation ABG results: PT/INR, D-dimer PT 37.5 Seconds (9.4-12.1) H D 07/17/17 10:29 - VTE Reasons for not Prescribing Prophylaxis: Not indicated-Anticoagulated or INR therapeutic Documentation of Mechanical Device: Intermittent pneumatic compression device Consult Discharge Plan - Plan Referrals: Dane Justin MD [Primary Care Provider] - <Hemal Mcdonald - Last Filed: 07/18/17 16:29> Date of Encounter: 07/18/17 - Assessment and plan (1) Incisional hernia of anterior abdominal wall with obstruction Current Visit: Yes Status: Acute Assessment and plan: s/p resection (2) CAD (coronary artery disease) Current Visit: Yes Status: Chronic Qualifiers: Coronary Disease-Associated Artery/Lesion type: douglas artery [place] vs. transplanted heart: douglas heart Associated angina: without angina Qualified Code(s): I25.10 - Atherosclerotic heart disease of douglas coronary artery without angina pectoris (3) Status post small bowel resection Current Visit: Yes Status: Acute (4) Anemia Current Visit: Yes Status: Acute Qualifiers: Anemia type: other cause Other causes of anemia: acute posthemorrhagic Qualified Code(s): D62 - Acute posthemorrhagic anemia (5) GI bleed Current Visit: Yes Status: Suspected Qualifiers: GI bleed type/associated pathology: gastritis Gastritis type: acute gastritis Qualified Code(s): K29.01 - Acute gastritis with bleeding (6) Systolic heart failure Current Visit: Yes Status: Chronic Qualifiers: Heart failure chronicity: chronic Qualified Code(s): I50.22 - Chronic systolic (congestive) heart failure (7) PAF (paroxysmal atrial fibrillation) Current Visit: Yes Status: Chronic (8) Hypertension Current Visit: No Status: Chronic Qualifiers: Hypertension type: essential hypertension Qualified Code(s): I10 - Essential (primary) hypertension (9) Sacral decubitus ulcer, stage II Current Visit: Yes Status: Acute Assessment and plan: Wound care consult. - Constitutional Vitals: Temp Pulse Resp BP Pulse Ox 97.8 F 98 15 108/53 100 07/18/17 15:11 07/18/17 15:11 07/18/17 15:11 07/18/17 15:11 07/18/17 15:11 Internal Medicine: Result - Labs CBC & Chem 7: 07/18/17 04:38 07/18/17 04:38 Labs: Short CBC 07/17/17 07/17/17 07/18/17 Range/Units 17:55 21:37 04:38 WBC 8.5 (4.3-11.1) K/mcL Hgb 8.2 L 8.5 L 8.0 L (12.9-16.9) g/dL Hct 28.8 L 29.1 L 26.9 L (37.5-50.1) % Plt Count 255 (140-400) K/mcL Neutrophils # 6.1 (1.6-8.9) K/mcL BMP 07/18/17 04:38 Sodium 142 Potassium 2.9 L Chloride 110 H Carbon Dioxide 29 BUN 11 Creatinine 0.58 L Glucose 140 H Calcium 7.5 L Liver Function 07/18/17 Range/Units 04:38 Total Bilirubin 0.9 (0.3-1.0) mg/dL AST 27 (13-39) Units/L ALT 15 (7-52) Units/L Alkaline Phosphatase 57 (34-104) Units/L Albumin 2.2 L (3.5-5.7) g/dL - ABG Interpretation ABG results: PT/INR, D-dimer PT 37.5 Seconds (9.4-12.1) H D 07/17/17 10:29 - Impressions Impressions Abdomen X-Ray 07/18/17 10:48 IMPRESSION: NG tube with the proximal side port within the distal esophagus. The tip lies within the fundus of the stomach. Suggestion is made to advance the tube by 10 cm No evidence of bowel obstruction. D/ / Roberth Hinton MD / Roberth Hinton MD Interpreting Provider: Roberth Hinton MD - Attending Attestation I examined this patient and my medical decision-making was reviewed with the Resident Physician on 07/18/17. I agree with the documented findings, disposition and treatment plan as described except to the extent set forth below. Mr Yeung is currently admitted for acute SBO s/p resection. He remains moderate to high risk due to potential for worsening clinical status. Mr Yeung is up in chair. He feels very tired. No overt bleeding with heparin. Still has not had BM. Has developed a sacral decub. No fever or chills. Exam Alert. Comfortable at this time Heart reg Lungs diminished No edema I/P 1. Stage 2 sacral decub 2. SBO s/p resection Further diagnoses and plan as above.
--- NOTE | 2017-07-18 10:42 | General Surgery Progress Note ---
<EliotCarlita Gian - Last Filed: 07/18/17 10:39> Date of Encounter: 07/18/17 Time of Encounter: 08:35 - Assessment and Plan (1) Status post small bowel resection Current Visit: Yes Status: Acute POD #5 #1 repair of incisional hernia #2 small bowel resection with Dr. Swanson Per bedside RN, when suppository given previously RN reports that patient had a significant amount of hard stool in the rectal and requested possible stool softening agent per rectum. Bowel sounds remain absent. His abdomen is soft and distended. Plan: Continue bowel rest while awaiting return of bowel function NG tube to low intermittent wall suction IV fluids (total fluid management and electrolytes per primary team) Supportive care and pain control Incentive spirometer every 1 hour while awake Out of bed to chair and ambulate with assistance 3 times per day Consult placed to PT/OT Reglan scheduled for the next 48 hours PPI therapy daily May restart anticoagulation- management per primary medicine team 2-view Abd XR to assess bowel gas pattern. Milk of molasses enemas BID x2 doses (2) Anemia Current Visit: Yes Status: Acute Stable. Will continue to follow along with you Qualifiers: Anemia type: other cause Other causes of anemia: acute posthemorrhagic Qualified Code(s): D62 - Acute posthemorrhagic anemia Subjective Patient reports: no new complaints, still having pain, pain is less, voiding w/ o difficulty (Per williamson), no flatus, no bowel movement, shortness of breath, afebrile Narrative: Mr Yeung states he "feels like crap." He is unable to further describe this feeling other than stating "I just feel that today." He reports feeling short of breath. He denies nausea, vomiting, passing gas, or having a bowel movement. He states as abdominal discomfort is several controlled. He states he has been out of bed only once since surgery. Objective Vital Signs - Last 8 Hours Temp Pulse Resp BP Pulse Ox 07/18/17 08:02 18 99 07/18/17 06:44 97.9 F 98 15 125/75 97 07/18/17 04:15 99.4 F 90 18 144/79 92 Intake and Output 07/17/17 07/18/17 07/18/17 23:59 07:59 15:59 Intake Total 1019 / 1019 1165 / 1165 0 / 0 Output Total 550 / 550 100 / 100 Balance 469 / 469 1065 / 1065 0 / 0 Intake: IV Fluids 1019 / 1019 1165 / 1165 D5% And 0.45% Nacl 1000 Ml Bag 900 / 900 1000 / 1000 1,000 ML @ 75 mls/hr IVC . [id number] [facility] Rx#:[id number] Heparin 25,000 UNIT/500 ML D5W 119 / 119 165 / 165 25,000 unit In 500 ml @ 12 UNIT /KG/HR 15.504 mls/hr IVC .Q24H [facility] Rx#:[id number] Oral 0 / 0 Output: Catheter 550 / 550 100 / 100 Other: Meal Breakfast Percent of Meal Consumed 0% Blood Glucose* 132 139 - General physical appearance no distress, moderate pain - Eyes normal ocular movement - ENT atraumatic, normocephalic - Neck Neck exam: trachea midline - Respiratory other (Decreased course breath sounds) - Cardiovascular Cardiovascular exam: Present: RRR, murmurs - Abdomen Abdomen: Present: tender (Expected postoperative). Absent: bowel sounds present (Absent) Hernia: none - Incision Incision: Present: clean and dry (Overall clean and dry. Small amount of serous drainage noted on the ABD pad.), intact, erythema (Small amount of non- blanching erythema noted in the inferior most areas (pelvic area)) - Integumentary other (See above) - Neurologic normal sensation - Musculoskeletal other (Appears generally weak) - Psychiatric oriented to time, oriented to person, oriented to place, speech is normal, memory intact - Labs 07/18/17 04:38 07/18/17 04:38 Diabetes panel 07/18/17 Range/Units 04:38 Sodium 142 (136-145) mEq/L Potassium 2.9 L (3.5-5.1) mEq/L Chloride 110 H (98-107) mEq/L Carbon Dioxide 29 (23-29) mEq/L BUN 11 (8-23) mg/dL Creatinine 0.58 L (0.70-1.30) mg/dL Glucose 140 H (70-105) mg/dL Calcium 7.5 L (8.6-10.3) mg/dL AST 27 (13-39) Units/L ALT 15 (7-52) Units/L Alkaline Phosphatase 57 (34-104) Units/L Albumin 2.2 L (3.5-5.7) g/dL Calcium panel 07/18/17 Range/Units 04:38 Calcium 7.5 L (8.6-10.3) mg/dL Albumin 2.2 L (3.5-5.7) g/dL Pituitary panel 07/18/17 Range/Units 04:38 Sodium 142 (136-145) mEq/L Potassium 2.9 L (3.5-5.1) mEq/L Chloride 110 H (98-107) mEq/L Carbon Dioxide 29 (23-29) mEq/L BUN 11 (8-23) mg/dL Creatinine 0.58 L (0.70-1.30) mg/dL Glucose 140 H (70-105) mg/dL Calcium 7.5 L (8.6-10.3) mg/dL Adrenal panel 07/18/17 Range/Units 04:38 Sodium 142 (136-145) mEq/L Potassium 2.9 L (3.5-5.1) mEq/L Chloride 110 H (98-107) mEq/L Carbon Dioxide 29 (23-29) mEq/L BUN 11 (8-23) mg/dL Creatinine 0.58 L (0.70-1.30) mg/dL Glucose 140 H (70-105) mg/dL Calcium 7.5 L (8.6-10.3) mg/dL Total Bilirubin 0.9 (0.3-1.0) mg/dL AST 27 (13-39) Units/L ALT 15 (7-52) Units/L Alkaline Phosphatase 57 (34-104) Units/L Albumin 2.2 L (3.5-5.7) g/dL - VTE Reasons for not Prescribing Prophylaxis: Not indicated-Anticoagulated or INR therapeutic Documentation of Mechanical Device: Intermittent pneumatic compression device Consult Discharge Plan - Plan Referrals: Dane Justin MD [Primary Care Provider] - <Dane Swanson - Last Filed: 07/19/17 08:07> Date of Encounter: 07/19/17 - Assessment and Plan (1) Anemia Current Visit: Yes Status: Acute Qualifiers: Anemia type: other cause Other causes of anemia: acute posthemorrhagic Qualified Code(s): D62 - Acute posthemorrhagic anemia Objective Vital Signs - Last 8 Hours Temp Pulse Resp BP Pulse Ox 07/19/17 06:00 98.1 F 104 16 103/71 98 07/19/17 05:00 98 F 106 16 123/76 97 Intake and Output 07/18/17 07/19/17 07/19/17 23:59 07:59 15:59 Intake Total 1000 / 1000 216 / 216 Output Total 200 / 200 100 / 100 Balance 800 / 800 116 / 116 Intake: IV Fluids 1000 / 1000 216 / 216 D5% And 0.45% Nacl 1000 Ml Bag 1000 / 1000 1,000 ML @ 75 mls/hr IVC . [id number] [facility] Rx#:[id number] Heparin 25,000 UNIT/500 ML D5W 216 / 216 25,000 unit In 500 ml @ 12 UNIT /KG/HR 15.504 mls/hr IVC .Q24H [facility] Rx#:[id number] Oral 0 / 0 0 / 0 Output: Urine 200 / 200 100 / 100 Other: Meal Dinner Percent of Meal Consumed 0% Stool Size Moderate Stool Consistency soft Stool Color Brown # Voids 2 # Bowel Movement Diapers 1 Weight 65.2 kg Blood Glucose* 120 128 Patient Weight 07/19/17 23:59 Weight 65.2 kg - Labs 07/19/17 07:43 07/18/17 22:16 Diabetes panel 07/18/17 Range/Units 22:16 Sodium 139 (136-145) mEq/L Potassium 3.4 L (3.5-5.1) mEq/L Chloride 108 H (98-107) mEq/L Carbon Dioxide 29 (23-29) mEq/L BUN 11 (8-23) mg/dL Creatinine 0.57 L (0.70-1.30) mg/dL Glucose 117 H (70-105) mg/dL Calcium 7.5 L (8.6-10.3) mg/dL Calcium panel 07/18/17 Range/Units 22:16 Calcium 7.5 L (8.6-10.3) mg/dL Pituitary panel 07/18/17 Range/Units 22:16 Sodium 139 (136-145) mEq/L Potassium 3.4 L (3.5-5.1) mEq/L Chloride 108 H (98-107) mEq/L Carbon Dioxide 29 (23-29) mEq/L BUN 11 (8-23) mg/dL Creatinine 0.57 L (0.70-1.30) mg/dL Glucose 117 H (70-105) mg/dL Calcium 7.5 L (8.6-10.3) mg/dL Adrenal panel 07/18/17 Range/Units 22:16 Sodium 139 (136-145) mEq/L Potassium 3.4 L (3.5-5.1) mEq/L Chloride 108 H (98-107) mEq/L Carbon Dioxide 29 (23-29) mEq/L BUN 11 (8-23) mg/dL Creatinine 0.57 L (0.70-1.30) mg/dL Glucose 117 H (70-105) mg/dL Calcium 7.5 L (8.6-10.3) mg/dL - Attending Attestation I have personally performed a face to face evaluation on this patient. I have reviewed and agree with the care plan. History and Exam by me shows: The patient is seen and evaluated on morning rounds. He still does not have bowel sounds. Nasogastric tube drainage site. He has not recovered bowel function. He is currently on Reglan. We will add an enema. Await bowel function. Dane Swanson MD FACS
[2017-07-18] MEDS ORDERED: Milk and Molasses Enema 200 ML RC SCH (10:45)
[2017-07-18] MEDS ORDERED: Acetaminophen IV 1,000 MG/100 ML INFUS..BTL IVPB ONE (10:52)
[2017-07-18] MEDS: Silvasorb 44.4 ML TUBE TP SCH (13:07)
[2017-07-18] MEDS: Ondansetron 4 MG/2 ML VIAL IVP PRN (20:07)
[2017-07-18] MEDS ORDERED: 0.9 % Sodium Chloride 1,000 ML ONE (22:04)
[2017-07-18 22:48] LABS: BUN/Creatinine Ratio 19 (6-26); Blood Urea Nitrogen 11 mg/dL (8-23); Calcium 7.5 mg/dL (8.6-10.3); Carbon Dioxide 29 mEq/L (23-29); Chloride 108 mEq/L (98-107); Glucose 117 mg/dL (70-105); Osmolality,Calculated 288 (280-300); Potassium 3.4 mEq/L (3.5-5.1); Sodium 139 mEq/L (136-145); eGFR For African Americans > 60 (> 60); eGFR For Non-African Americans > 60 (> 60)
[2017-07-19] MEDS: Heparin 25,000 UNIT/500 ML D5W 25,000 UNIT/500 ML BAG IVC SCH (00:12)
[2017-07-19] MEDS: Metoclopramide 10 MG/2 ML VIAL IVP SCH ×4 (00:14→19:45)
[2017-07-19] MEDS ORDERED: Milk and Molasses Enema 200 ML RC SCH (05:00)
[2017-07-19] MEDS: *HR* LORazepam 2 MG/ML VIAL IVP SCH ×3 (06:39→21:55)
[2017-07-19 07:53] LABS: Basophils % 0.2 %; Eosinophils % 1.6 %
[2017-07-19 07:55] LABS: Eosinophils # 0.1 K/mcL (0.0-0.6); Hematocrit 32.2 % (37.5-50.1); Hemoglobin 9.6 g/dL (12.9-16.9); Immature Granulocytes % 0.5 % (0-4); Lymphocytes % 18.9 %; Mean Corpuscular HGB Conc 29.8 g/dL (31.6-35.5); Mean Corpuscular Hemoglobin 23.6 pg (28.0-33.3); Mean Corpuscular Volume 79.3 fL (83.0-100.0); Mean Platelet Volume 9.6 fL (9.4-12.4); Monocytes # 0.8 K/mcL (0.0-1.3); Monocytes % 9.5 %; Platelet Count 289 K/mcL (140-400); Red Blood Count 4.06 M/mcL (4.19-5.50); Red Cell Distribution Width 21.7 % (11.5-14.5); Segmented Neutrophils % 69.3 %
[2017-07-19 07:59] LABS: Lymphocytes # 1.6 K/mcL (0.6-4.6)
[2017-07-19] MEDS: Artificial Tears SOLN 15 ML BOTTLE BOTH EYES SCH ×4 (08:21→21:57)
[2017-07-19] MEDS: Pantoprazole 40 MG VIAL IVP SCH ×2 (08:23→21:55)
[2017-07-19 08:24] LABS: BUN/Creatinine Ratio 15 (6-26); Blood Urea Nitrogen 10 mg/dL (8-23); Calcium 7.7 mg/dL (8.6-10.3); Carbon Dioxide 28 mEq/L (23-29); Chloride 107 mEq/L (98-107); Glucose 116 mg/dL (70-105); Magnesium 1.9 mg/dL (1.6-2.6); Osmolality,Calculated 290 (280-300); Phosphorous 2.2 mg/dL (2.7-4.5); Potassium 3.5 mEq/L (3.5-5.1); Sodium 140 mEq/L (136-145); eGFR For African Americans > 60 (> 60); eGFR For Non-African Americans > 60 (> 60)
[2017-07-19] MEDS: Silvasorb 44.4 ML TUBE TP SCH (08:24)
[2017-07-19 08:30] LABS: Hypochromasia Present (Not Present); Platelet Estimate Normal (Normal)
--- NOTE | 2017-07-19 08:36 | Internal Med Progress Note ---
<Houston Prince - Last Filed: 07/19/17 10:11> Date of Encounter: 07/19/17 Time of Encounter: 08:36 - Assessment and plan (1) GI bleed Current Visit: Yes Status: Suspected Assessment and plan: 82/male with Multiple comorbid conditions: Hypertension/hyperlipidemia/A. fib/ coronary artery disease with recent 2 stents with current anticoagulant: Aspirin /Plavix/Xarelto came to emergency room with worsening vomiting along with progressively dark stool for several days. Stool guaiac was positive. Patient underwent partial colectomy for small bowel obstruction and incisional hernia. Patient continued to have decreasing hemoglobin and surgery recommends endoscopy and colonoscopy after patient has stabilized from recovery of SBO. Mr. Yeung is nothing by mouth postoperatively with hypoactive bowel sounds no bowel movements or flatulence and unable to take oral anticoagulants. Discussion between primary team and cardiology with recommendations for 300 mg rectal aspirin and heparin gtt. if tolerated, to help prevent potential stent thrombosis. He is off dual anti-platelet therapy with a recent stents placed on 06/19/2017 and only on rectal aspirin increasing his risk of stent thrombosis with high mortality risk. - Surgery: IV PPI/blood transfusions/NG placement/CT abdomen and pelvis/close monitoring/nothing by mouth/plan for endoscopy when patient is more stable 07/17: Restart heparin drip as discussed, patient does have some mild red tinge to NG tube output concerning for potential gastric ulcers also had hematuria last evening which tapered off this morning. General surgery aware, will continue to monitor hemoglobin replace. He sees as necessary. 07/18: Heparin drip restarted yesterday, hemoglobin 8.0 down from 8.5 yesterday. Patient is at high risk for continued bleed but benefits outweigh the risk at this time. 07/19: NG tube removed, continue heparin drip, hemoglobin improved to 9.6 from 8.0, no blood transfusion overnight. Hemoglobin appears to be stable we will continue to monitor. plan - Continue heparin drip. Monitor H&H - We will closely monitor patient's hemoglobin/hematocrit. Every 8 hours H&H - We will recommend colonoscopy and endoscopy when patient is stable for procedure. Qualifiers: GI bleed type/associated pathology: gastritis Gastritis type: acute gastritis Qualified Code(s): K29.01 - Acute gastritis with bleeding (2) Acute blood loss anemia Current Visit: Yes Status: Acute Assessment and plan: Acute blood loss anemia in the setting of GI bleed, status post partial small bowel resection. Patient is a recent cardiac stent placement 06/19/2017 requiring dual antiplatelet therapy. Risks and benefits were discussed with the patient and heparin drip was restarted, rectal aspirin daily. 07/19: Continue heparin drip, hemoglobin stable. NG tube out, no hematuria noted. - Hemoglobin stable currently, will replace PRBCs when hemoglobin falls below 8.0. - Patient will need EGD and colonoscopy for evaluation of bleed when he is stable. (3) Hypertension Current Visit: No Status: Chronic Assessment and plan: Blood pressure stable, continue to hold antihypertensive medications. Patient is nothing by mouth. Qualifiers: Hypertension type: essential hypertension Qualified Code(s): I10 - Essential (primary) hypertension (4) CAD (coronary artery disease) Current Visit: Yes Status: Chronic Assessment and plan: 82-year-old male with significance vascular disease with recent drug-eluting stent to the proximal LAD 06/19/2017 recently on Plavix, aspirin for dual antiplatelet therapy and Xarelto for Atrial fibrillation. He has had multiple previous vascular surgeries with femorofemoral bypass and repair completed at this facility. - Echocardiogram from June demonstrates an ejection fraction of 35-40% with current stable systolic heart failure. - He was admitted with anemia in the setting of small bowel obstruction and GI bleed. He has been off aspirin and Plavix with recent stent increasing risk for stent thrombosis and high mortality rate. He has since been on rectal aspirin 300 mg daily and heparin GTT. The heparin drip was discontinued yesterday in the setting of anemia requiring 2 units PRBC transfusion. His atrial fibrillation anticoagulation has been held in the setting of GI bleed. 07/17/2017: Hemoglobin 8.7, discussed risks and benefits restarting heparin drip with Mr. Yeung and his family, emphasized the risk of stent rethrombosis and if necessary further blood transfusions. They are agreeable to restarting heparin drip and continue monitoring hemoglobin levels. We will give a EPIV for axis if necessary. 07/18/2017: Stable. Plan: - Restart heparin drip, continue ASA rectally - Continue cardiac monitoring - Risks and benefits discussed with patient and family. Qualifiers: Coronary Disease-Associated Artery/Lesion type: hopi artery [place] vs. transplanted heart: hopi heart Associated angina: without angina Qualified Code(s): I25.10 - Atherosclerotic heart disease of hopi coronary artery without angina pectoris (5) Status post small bowel resection Current Visit: Yes Status: Acute Assessment and plan: 07/16/2017 Postoperative partial colectomy with 10 cm small bowel resected secondary to SBO and incisional hernia. - Surgical management and recommendations from Dr. Swanson with general surgery appreciated - NG tube removed today by surgery. - We will receive supplemental nutrition for healing. (6) Systolic heart failure Current Visit: Yes Status: Chronic Assessment and plan: Stable systolic heart failure with ejection fraction of 35-40% with recent JATINDER placed 06/19/2017. - Cardiology following appreciate recommendations - Continued on Aldactone, Plavix held in the setting of GI bleed and nothing by mouth, heparin drip, aspirin 300 mg rectally, unable to be on beta risa and OJSELITO inhibitor due to hypotension and nothing by mouth. - Continue to monitor, strict intake and output monitoring, daily weights - When able to take oral intake will restrict to 2 L fluid restrictions, 2 g sodium restrictions. Qualifiers: Heart failure chronicity: chronic Qualified Code(s): I50.22 - Chronic systolic (congestive) heart failure (7) Peripheral vascular disease Current Visit: No Status: Chronic Assessment and plan: Known peripheral vascular disease. Chronic history. (8) PAF (paroxysmal atrial fibrillation) Current Visit: Yes Status: Chronic Assessment and plan: Known history of proximal atrial fibrillation currently heart rate is irregularly irregular. Anticoagulation held in the setting of GI bleed - Continue to monitor rate on cardiac monitoring - [id number] 5 (Age, HTN, CAD, CHF). High CVA risk, but in setting of GI bleed need to stop Xarelto. (9) Decubitus ulcer of coccyx, stage 2 Current Visit: Yes Status: Acute Assessment and plan: Stage II decubitus ulcer of the coccyx identified today. Patient has poor nutrition, immobility secondary to current medical condition. - Picc line for TPN, D/c EPIV. Plan: - Wound care - Turn patient frequently - Start TPN for nutritional status. Daily magnesium and phosphorus replacement as needed. - Frequent decub ulcer checks. (10) Edema of penis Current Visit: Yes Status: Acute Assessment and plan: Patient has edema of the penis that has progressively increased likely secondary to poor nutritional status. Given location of edema likely secondary to dependency of volume. Plan: - Closely monitor volume status - BNP - Start TPN for nutritional status (11) DVT prophylaxis Current Visit: No Status: Acute Assessment and plan: Heparin drip - Subjective Interval history: Mr. Yeung 82-year-old male has been seen and evaluated at patient bedside this morning. He is alert awake interactive in no acute distress. He is doing well after having his NG tube taken out this morning. Has some mild nausea, sputum production but denies any chest pain, chest pressure, shortness of breath , vomiting, worsening of abdominal discomfort, diarrhea. He does have some penile edema and constipation. The penile edema is newer to him. He denies any pain or discomfort but has had low urine output overnight. - Constitutional Vitals: Temp Pulse Resp BP Pulse Ox 99.3 F 104 16 103/71 98 07/19/17 08:30 07/19/17 06:00 07/19/17 06:00 07/19/17 06:00 07/19/17 06:00 General appearance: Present: mild distress, A&O X 3 Exam: General: Patient alert, awake, oriented 3, interactive, in no acute distress HEENT: Normocephalic, atraumatic, pupils equal reactive to light, oral mucosa dry, uvula midline, neck supple trachea midline no palpable lymphadenopathy, no thyromegaly. Chest: Symmetric bilateral correlating with respiratory effort, effort nonlabored. Cardiac: Regular rate and rhythm, positive S1 and S2. no bruits appreciated bilateral carotids, Radial pulses 2+ bilateral, posterior tibial and dorsal pedal pulses 2+ bilateral. Respiratory: Clear to auscultation bilaterally Abdomen: Mildly distended, tympanic, mild tenderness to light palpation. Midline abdominal incision healing well without drainage or discharge. Active bowel sounds. Extremities: Symmetric bilateral, bilateral lower extremities without erythema or edema patient moving all 4 extremities spontaneously. Stage II Coxygeal decub. Penile edema. Neurologic: No focal deficits appreciated on examination. Face symmetric, muscle strength symmetric bilateral upper and lower extremities. Internal Medicine: Result - Labs CBC & Chem 7: 07/19/17 07:43 07/19/17 07:43 Labs: Short CBC 07/19/17 Range/Units 07:43 WBC 8.7 (4.3-11.1) K/mcL Hgb 9.6 L D (12.9-16.9) g/dL Hct 32.2 L (37.5-50.1) % Plt Count 289 (140-400) K/mcL Neutrophils # 6.0 (1.6-8.9) K/mcL BMP 07/18/17 07/19/17 22:16 07:43 Sodium 139 140 Potassium 3.4 L 3.5 Chloride 108 H 107 Carbon Dioxide 29 28 BUN 11 10 Creatinine 0.57 L 0.65 L Glucose 117 H 116 H Calcium 7.5 L 7.7 L - ABG Interpretation ABG results: PT/INR, D-dimer PT 37.5 Seconds (9.4-12.1) H D 07/17/17 10:29 - Impressions Impressions Abdomen X-Ray 07/18/17 10:48 IMPRESSION: NG tube with the proximal side port within the distal esophagus. The tip lies within the fundus of the stomach. Suggestion is made to advance the tube by 10 cm No evidence of bowel obstruction. D/ / Roberth Hinton MD / Roberth Hinton MD Interpreting Provider: Roberth Hinton MD - VTE Reasons for not Prescribing Prophylaxis: Not indicated-Anticoagulated or INR therapeutic Documentation of Mechanical Device: Intermittent pneumatic compression device Consult Discharge Plan - Plan Referrals: Dane Justin MD [Primary Care Provider] - <Hemal Mcdonald - Last Filed: 07/19/17 19:01> Date of Encounter: 07/19/17 - Assessment and plan (1) Incisional hernia of anterior abdominal wall with obstruction Current Visit: Yes Status: Acute (2) CAD (coronary artery disease) Current Visit: Yes Status: Chronic Qualifiers: Coronary Disease-Associated Artery/Lesion type: [place] artery [place] vs. transplanted heart: hopi heart Associated angina: without angina Qualified Code(s): I25.10 - Atherosclerotic heart disease of [place] coronary artery without angina pectoris (3) Status post small bowel resection Current Visit: Yes Status: Acute (4) Anemia Current Visit: Yes Status: Acute Qualifiers: Anemia type: other cause Other causes of anemia: acute posthemorrhagic Qualified Code(s): D62 - Acute posthemorrhagic anemia (5) GI bleed Current Visit: Yes Status: Suspected Qualifiers: GI bleed type/associated pathology: gastritis Gastritis type: acute gastritis Qualified Code(s): K29.01 - Acute gastritis with bleeding (6) Systolic heart failure Current Visit: Yes Status: Chronic Qualifiers: Heart failure chronicity: chronic Qualified Code(s): I50.22 - Chronic systolic (congestive) heart failure (7) PAF (paroxysmal atrial fibrillation) Current Visit: Yes Status: Chronic (8) Hypertension Current Visit: No Status: Chronic Qualifiers: Hypertension type: essential hypertension Qualified Code(s): I10 - Essential (primary) hypertension (9) Sacral decubitus ulcer, stage II Current Visit: Yes Status: Acute - Constitutional Vitals: Temp Pulse Resp BP Pulse Ox 97.7 F 124 20 112/81 100 07/19/17 17:15 07/19/17 17:15 07/19/17 17:15 07/19/17 15:48 07/19/17 17:15 Internal Medicine: Result - Labs CBC & Chem 7: 07/19/17 07:43 07/19/17 07:43 Labs: Short CBC 07/19/17 Range/Units 07:43 WBC 8.7 (4.3-11.1) K/mcL Hgb 9.6 L D (12.9-16.9) g/dL Hct 32.2 L (37.5-50.1) % Plt Count 289 (140-400) K/mcL Neutrophils # 6.0 (1.6-8.9) K/mcL BMP 07/18/17 07/19/17 22:16 07:43 Sodium 139 140 Potassium 3.4 L 3.5 Chloride 108 H 107 Carbon Dioxide 29 28 BUN 11 10 Creatinine 0.57 L 0.65 L Glucose 117 H 116 H Calcium 7.5 L 7.7 L - ABG Interpretation ABG results: PT/INR, D-dimer PT 21.4 Seconds (9.4-12.1) H D 07/19/17 17:10 - Attending Attestation I examined this patient and my medical decision-making was reviewed with the Resident Physician on 07/19/17. I agree with the documented findings, disposition and treatment plan as described except to the extent set forth below. Mr Yeung is currently admitted for bowel obstruction s/p surgery. He remains moderate to high risk due to potential for worsening clinical status. Mr Yeung has NG out and trying clear liquids. No fever. No nausea. Pain is controlled. Exam alert. Comfortable Mucus membranes dry Heart irreg and tachy Rhonchi heard Abd soft I/P 1. Bowel obstruction 2. Rapid a fib Further diagnoses and plan as above.
[2017-07-19] MEDS ORDERED: Potassium Phosphate 44 MEQ in 0.9 % Sodium Chloride 250 ML IVPB ONE (09:59)
[2017-07-19] MEDS ORDERED: D5% in Water 1,000 ML IVC PRN (10:00)
[2017-07-19] MEDS ORDERED: *HR* Dextrose 50 % in Water (Syg) 50 ML SYRINGE IVP PRN (10:00)
[2017-07-19] MEDS ORDERED: Dextrose Gel 15 GM/37.5 ML TUBE PO PRN ×2 (10:00)
[2017-07-19] MEDS ORDERED: D10% in Water 500 ML IVC PRN (10:45)
[2017-07-19] MEDS: Budesonide/Formoterol 160/4.5 MDI IH SCH ×2 (10:51→23:52)
[2017-07-19] MEDS ORDERED: Albumin 25% 25gram/100mL 25 GM/100 ML IV.SOLN IVPB ONE (11:53)
[2017-07-19] MEDS: Insulin LISPRO 300 UNITS/3 ML VIAL SQ SCH ×3 (11:59→23:50)
[2017-07-19] MEDS ORDERED: Lidocaine -MPF 1% 2 ML VIAL INFILT ONE (12:03)
--- NOTE | 2017-07-19 12:09 | General Surgery Progress Note ---
<Carlita Mccabe - Last Filed: 07/19/17 12:05> Date of Encounter: 07/19/17 Time of Encounter: 07:45 - Assessment and Plan (1) Status post small bowel resection Current Visit: Yes Status: Acute POD #6 #1 repair of incisional hernia #2 small bowel resection with Dr. Swanson milk of molasses enemas times 2 given yesterday. Patient had small bowel movement. He does have bowel sounds today. He denies nausea or vomiting. His NG drainage has decreased. His abdominal exam is overall benign. Plan: DC NG tube. Clear liquid diet IV fluids (total fluid management and electrolytes per primary team) Supportive care and pain control Incentive spirometer every 1 hour while awake Out of bed to chair and ambulate with assistance 3 times per day PT/OT following Reglan scheduled for the next 24 hours PPI therapy daily May restart anticoagulation- management per primary medicine team add stool softener's (2) Anemia Current Visit: Yes Status: Acute Stable. Will continue to follow along with you anticoagulation management per primary team. Qualifiers: Anemia type: other cause Other causes of anemia: acute posthemorrhagic Qualified Code(s): D62 - Acute posthemorrhagic anemia Subjective Patient reports: no new complaints, still having pain, pain is less, voiding w/ o difficulty (per williamson), flatus, bowel movement, afebrile Objective Vital Signs - Last 8 Hours Temp Pulse Resp BP Pulse Ox 07/19/17 11:26 97.5 F L 104 16 119/76 97 07/19/17 08:30 99.3 F 07/19/17 06:00 98.1 F 104 16 103/71 98 07/19/17 05:00 98 F 106 16 123/76 97 Intake and Output 07/18/17 07/19/17 07/19/17 23:59 07:59 15:59 Intake Total 1000 / 1000 216 / 216 1120 / 1120 Output Total 200 / 200 100 / 100 125 / 125 Balance 800 / 800 116 / 116 995 / 995 Intake: IV Fluids 1000 / 1000 216 / 216 1120 / 1120 D5% And 0.45% Nacl 1000 Ml Bag 1000 / 1000 1000 / 1000 1,000 ML @ 75 mls/hr IVC . [id number] [id number] Rx#:[id number] Heparin 25,000 UNIT/500 ML D5W 216 / 216 120 / 120 25,000 unit In 500 ml @ 12 UNIT /KG/HR 15.504 mls/hr IVC .Q24H [facility] Rx#:[id number] Oral 0 / 0 0 / 0 0 / 0 Output: Urine 200 / 200 100 / 100 125 / 125 Other: Meal Dinner Breakfast Percent of Meal Consumed 0% 0% Stool Size Moderate Small Stool Consistency soft liquid Stool Color Brown Brown # Voids 2 # Bowel Movements 1 # Bowel Movement Diapers 1 Weight 65.2 kg Blood Glucose* 120 128 105 Patient Weight 07/19/17 23:59 Weight 65.2 kg - General physical appearance no distress, moderate pain - Eyes normal ocular movement - ENT atraumatic, normocephalic - Neck Neck exam: trachea midline, no venous distension - Respiratory other (decreased course) - Cardiovascular Cardiovascular exam: Present: tachycardia - Abdomen Abdomen: Present: bowel sounds present, soft, tender (Expected postoperative) Hernia: none - Incision Incision: Present: clean and dry (Overall clean and dry. There is a small amount of serous drainage noted.), intact - Integumentary no growths - Neurologic normal coordination, normal sensation - Musculoskeletal normal posture - Psychiatric oriented to time, oriented to person, oriented to place, speech is normal, memory intact - Labs 07/19/17 07:43 07/19/17 07:43 Diabetes panel 07/18/17 07/19/17 Range/Units 22:16 07:43 Sodium 139 140 (136-145) mEq/L Potassium 3.4 L 3.5 (3.5-5.1) mEq/L Chloride 108 H 107 (98-107) mEq/L Carbon Dioxide 29 28 (23-29) mEq/L BUN 11 10 (8-23) mg/dL Creatinine 0.57 L 0.65 L (0.70-1.30) mg/dL Glucose 117 H 116 H (70-105) mg/dL Calcium 7.5 L 7.7 L (8.6-10.3) mg/dL Calcium panel 07/18/17 07/19/17 Range/Units 22:16 07:43 Calcium 7.5 L 7.7 L (8.6-10.3) mg/dL Phosphorus 2.2 L (2.7-4.5) mg/dL Pituitary panel 07/18/17 07/19/17 Range/Units 22:16 07:43 Sodium 139 140 (136-145) mEq/L Potassium 3.4 L 3.5 (3.5-5.1) mEq/L Chloride 108 H 107 (98-107) mEq/L Carbon Dioxide 29 28 (23-29) mEq/L BUN 11 10 (8-23) mg/dL Creatinine 0.57 L 0.65 L (0.70-1.30) mg/dL Glucose 117 H 116 H (70-105) mg/dL Calcium 7.5 L 7.7 L (8.6-10.3) mg/dL Adrenal panel 07/18/17 07/19/17 Range/Units 22:16 07:43 Sodium 139 140 (136-145) mEq/L Potassium 3.4 L 3.5 (3.5-5.1) mEq/L Chloride 108 H 107 (98-107) mEq/L Carbon Dioxide 29 28 (23-29) mEq/L BUN 11 10 (8-23) mg/dL Creatinine 0.57 L 0.65 L (0.70-1.30) mg/dL Glucose 117 H 116 H (70-105) mg/dL Calcium 7.5 L 7.7 L (8.6-10.3) mg/dL - VTE Reasons for not Prescribing Prophylaxis: Not indicated-Anticoagulated or INR therapeutic Documentation of Mechanical Device: Intermittent pneumatic compression device Consult Discharge Plan - Plan Referrals: Dane Justin MD [Primary Care Provider] - <Dane Swanson - Last Filed: 07/23/17 14:11> Date of Encounter: 07/19/17 - Assessment and Plan (1) Anemia Current Visit: Yes Status: Acute Qualifiers: Anemia type: other cause Other causes of anemia: acute posthemorrhagic Qualified Code(s): D62 - Acute posthemorrhagic anemia Objective Vital Signs - Last 8 Hours Temp Pulse Resp BP Pulse Ox 07/23/17 11:04 98.6 F 110 19 124/81 97 07/23/17 10:33 18 97 07/23/17 06:57 18 07/23/17 06:52 98.1 F 105 111/89 94 Intake and Output 07/22/17 07/23/17 07/23/17 23:59 07:59 15:59 Intake Total 590 / 590 100 / 100 120 / 120 Output Total 500 / 500 150 / 150 Balance 590 / 590 -400 / -400 -30 / -30 Intake: IV Fluids 350 / 350 100 / 100 Zosyn 3.375 GM In 0.9 % Sodium 100 / 100 100 / 100 Chloride 100 ML @ 25 mls/hr IVPB Q8HR [facility] Rx#:[id number] Vancocin 1,000 MG In Dextrose 5 250 / 250 % 250 ML @ 167 mls/hr IVPB Q12H [facility] Rx#:[id number] Oral 240 / 240 120 / 120 Output: Catheter 500 / 500 150 / 150 Other: Meal Dinner Lunch Percent of Meal Consumed 0% Weight 74.1 kg Blood Glucose* 123 127 144 Patient Weight 07/23/17 23:59 Weight 74.1 kg - Labs 07/23/17 02:16 07/23/17 02:16 Diabetes panel 07/23/17 Range/Units 02:16 Sodium 134 L (136-145) mEq/L Potassium 3.9 (3.5-5.1) mEq/L Chloride 99 (98-107) mEq/L Carbon Dioxide 29 (23-29) mEq/L BUN 20 (8-23) mg/dL Creatinine 0.65 L (0.70-1.30) mg/dL Glucose 102 (70-105) mg/dL Calcium 8.1 L (8.6-10.3) mg/dL AST 22 (13-39) Units/L ALT 17 (7-52) Units/L Alkaline Phosphatase 86 (34-104) Units/L Albumin 2.6 L (3.5-5.7) g/dL Calcium panel 07/23/17 07/23/17 Range/Units 02:16 02:16 Calcium 8.1 L (8.6-10.3) mg/dL Phosphorus 2.9 (2.7-4.5) mg/dL Albumin 2.6 L (3.5-5.7) g/dL Pituitary panel 07/23/17 Range/Units 02:16 Sodium 134 L (136-145) mEq/L Potassium 3.9 (3.5-5.1) mEq/L Chloride 99 (98-107) mEq/L Carbon Dioxide 29 (23-29) mEq/L BUN 20 (8-23) mg/dL Creatinine 0.65 L (0.70-1.30) mg/dL Glucose 102 (70-105) mg/dL Calcium 8.1 L (8.6-10.3) mg/dL Adrenal panel 07/23/17 07/23/17 Range/Units 02:16 08:32 Sodium 134 L (136-145) mEq/L Potassium 3.9 (3.5-5.1) mEq/L Chloride 99 (98-107) mEq/L Carbon Dioxide 29 (23-29) mEq/L BUN 20 (8-23) mg/dL Creatinine 0.65 L (0.70-1.30) mg/dL Glucose 102 (70-105) mg/dL Calcium 8.1 L (8.6-10.3) mg/dL Total Bilirubin 1.8 H 2.2 H (0.3-1.0) mg/dL AST 22 (13-39) Units/L ALT 17 (7-52) Units/L Alkaline Phosphatase 86 (34-104) Units/L Albumin 2.6 L (3.5-5.7) g/dL - Attending Attestation I have personally performed a face to face evaluation on this patient. I have reviewed and agree with the care plan. History and Exam by me shows: The patient was seen and evaluated on morning rounds. The data is discussed in shared with the clinical nurse practitioner. The patient continues to progress well. We should maintain the nasogastric tube until he develops evidence of bowel function. Continue supportive care and pulmonary support. Dane Swanson MD FACS
[2017-07-19] MEDS ORDERED: *HR* Metoprolol 5 MG/5 ML VIAL IVP ONE ×2 (14:00→18:31)
[2017-07-19 14:01] LABS: INR 4.6
[2017-07-19] MEDS ORDERED: 0.9 % Sodium Chloride 250 ML ONE (15:45)
[2017-07-19] MEDS ORDERED: Clinimix E 5%-15% SOLUTION 2,000 ML with MVI, adult with vitamin K 10 ML IVC SCH (17:00)
[2017-07-19] MEDS: Leptospermum Honey Paste 44 ML TUBE TP SCH ×2 (17:02→21:56)
--- NOTE | 2017-07-19 17:22 | Urology - Consult Note ---
Date of Encounter: 07/19/17 Time of Encounter: 17:20 - Assessment and Plan (1) Edema of penis Current Visit: Yes Status: Acute Assessment and plan: At this point I recommend early ambulation as well as scrotal and penile elevation while in the bed. This will improve on its own. Call with any questions. Urology CN:CORY Consult date: 07/19/17 Reason for consult Urology: Other (Penile edema) Requesting physician: Rajesh Carranza History of present illness: Hua is a 82-year-old male well known to me secondary to BPH and urinary hesitancy. Patient is now admitted and undergone abdominal surgery. He has had some penile and scrotal edema for the past few days. He is currently able to void without difficulty. Past Med Surg Social Fam HX - Past Medical History Medical history: asthma, atrial fibrillation, cardiomyopathy, COPD, coronary artery disease, DVT, hyperlipidemia, hypertension, myocardial infarction, RA, other Psychiatric history: no psych history - Past Surgical History Surgical History: angioplasty/stent (x2 in 2002), herniorrhaphy (right inguinal 09/2011; ventral hernia repair 09/2007), LE Bypass, LE vascular intervention, vascular surgery (Right thrombectomy fem/fem bypass graft 01/03/2014; Fem/Fem bypass 2006; left fem/pop bypass 1994) - Social History Smoking Status: Never smoker Smokeless Tobacco Status: No Alcohol use: none Drug use: none - Family History Mother Living Status: Hx Family Respiratory Disorders: Yes Father Living Status: Hx Family Cancer: Yes Medications and Allergies Clopidogrel [Plavix] 75 mg PO DAILY 01/25/16 [History] Omeprazole [PriLOSEC] 20 mg PO DAILY 01/25/16 [History] Atorvastatin [Lipitor] 40 mg PO HS 07/17/16 [History] Aspirin Enteric Coated [Aspirin EC] 81 mg PO DAILY #30 tablet. 07/27/16 [Rx] Fluticasone/Salmeterol [Advair 500-50 Diskus] 1 each IH BID 04/08/17 [History] Ipratropium/Albuterol Neb [Duoneb] 3 ml IH Q4-6H PRN 06/14/17 [History] Nitroglycerin [Nitrostat] 0.4 mg PO Q5M PRN 06/14/17 [History] Tamsulosin [Flomax] 0.4 mg PO BID 06/14/17 [History] Furosemide [Lasix] 40 mg PO BID #120 tablet 06/21/17 [Rx] Rivaroxaban [Xarelto] 20 mg PO 1700 #60 tablet 06/21/17 [Rx] Saliva Stimulant [Biotene Moisturizing Rinse] 1 spray PO Q6H PRN #1 bottle 06/21 [Rx] Sennosides/Docusate Sodium [Senna Plus] 2 each PO BID PRN #60 tablet 06/21/17 [ Rx] LORazepam [Ativan] 0.5 mg PO TID 07/12/17 [History] Potassium Chloride [Klor-Con 10] 10 meq PO DAILY 07/12/17 [History] Spironolactone [Aldactone] 25 mg PO DAILY 07/12/17 [History] 3 Allergy/AdvReac Type Severity Reaction Status Date / Time No Known Allergies Allergy Verified 04/08/17 10:06 Review of Systems - Constitutional no chills, no fever(s) - EENT Nose, mouth and throat: no dizziness - Cardiovascular no chest pain - Respiratory no cough - Genitourinary as per HPI Exam Initial Vital Signs Temp Pulse Resp BP Pulse Ox 97.6 F 88 16 154/100 98 07/12/17 12:44 07/12/17 12:44 07/12/17 12:44 07/12/17 12:44 07/12/17 12:44 - General physical appearance Present: well developed - Respiratory Present: normal respiratory effort - Cardiovascular Cardiovascular exam IM: RRR - Abdomen Abdomen: Present: soft. Absent: suprapubic tenderness - Genitourinary other (Moderate penile and mild to moderate scrotal edema.) Urology Results - Labs 07/19/17 07:43 07/19/17 07:43 Abnormal lab results RBC 4.06 M/mcL (4.19-5.50) L 07/19/17 07:43 Hgb 9.6 g/dL (12.9-16.9) L D 07/19/17 07:43 Hct 32.2 % (37.5-50.1) L 07/19/17 07:43 MCV 79.3 fL (83.0-100.0) L 07/19/17 07:43 MCH 23.6 pg (28.0-33.3) L 07/19/17 07:43 MCHC 29.8 g/dL (31.6-35.5) L 07/19/17 07:43 RDW 21.7 % (11.5-14.5) H 07/19/17 07:43 Nucleated RBCs/100 WBC 0.2 /100 WBC (0) H 07/15/17 00:39 Reactive Lymphocytes Present (Not Present) A 07/17/17 00:06 Toxic Granulation Present (Not Present) A 07/17/17 00:06 Polychromasia 1+ (Not Present) A 07/16/17 00:12 Hypochromasia Present (Not Present) A 07/19/17 07:43 Poikilocytosis 1+ (Not Present) A 07/17/17 00:06 Anisocytosis 1+ (Not Present) A 07/17/17 00:06 Microcytosis Present (Not Present) A 07/17/17 00:06 PT 51.0 Seconds (9.4-12.1) H* 07/19/17 13:25 INR 4.6 H* 07/19/17 13:25 APTT 71.6 Seconds (26.0-36.0) H 07/19/17 07:43 Creatinine 0.65 mg/dL (0.70-1.30) L 07/19/17 07:43 Glucose 116 mg/dL (70-105) H 07/19/17 07:43 POC Glucose 105 (58-89) H 07/19/17 11:28 Calcium 7.7 mg/dL (8.6-10.3) L 07/19/17 07:43 Phosphorus 2.2 mg/dL (2.7-4.5) L 07/19/17 07:43 Serum Total Protein 4.6 g/dL (6.4-8.9) L 07/18/17 04:38 Albumin 2.2 g/dL (3.5-5.7) L 07/18/17 04:38 Albumin/Globulin Ratio 0.9 (1.1-2.2) L 07/18/17 04:38 Stool Occult Blood Positive (Negative) A 07/12/17 13:20 Diabetes panel 07/18/17 07/19/17 Range/Units 22:16 07:43 Sodium 139 140 (136-145) mEq/L Potassium 3.4 L 3.5 (3.5-5.1) mEq/L Chloride 108 H 107 (98-107) mEq/L Carbon Dioxide 29 28 (23-29) mEq/L BUN 11 10 (8-23) mg/dL Creatinine 0.57 L 0.65 L (0.70-1.30) mg/dL Glucose 117 H 116 H (70-105) mg/dL Calcium 7.5 L 7.7 L (8.6-10.3) mg/dL Calcium panel 07/18/17 07/19/17 Range/Units 22:16 07:43 Calcium 7.5 L 7.7 L (8.6-10.3) mg/dL Phosphorus 2.2 L (2.7-4.5) mg/dL Pituitary panel 07/18/17 07/19/17 Range/Units 22:16 07:43 Sodium 139 140 (136-145) mEq/L Potassium 3.4 L 3.5 (3.5-5.1) mEq/L Chloride 108 H 107 (98-107) mEq/L Carbon Dioxide 29 28 (23-29) mEq/L BUN 11 10 (8-23) mg/dL Creatinine 0.57 L 0.65 L (0.70-1.30) mg/dL Glucose 117 H 116 H (70-105) mg/dL Calcium 7.5 L 7.7 L (8.6-10.3) mg/dL Adrenal panel 07/18/17 07/19/17 Range/Units 22:16 07:43 Sodium 139 140 (136-145) mEq/L Potassium 3.4 L 3.5 (3.5-5.1) mEq/L Chloride 108 H 107 (98-107) mEq/L Carbon Dioxide 29 28 (23-29) mEq/L BUN 11 10 (8-23) mg/dL Creatinine 0.57 L 0.65 L (0.70-1.30) mg/dL Glucose 117 H 116 H (70-105) mg/dL Calcium 7.5 L 7.7 L (8.6-10.3) mg/dL All other labs normal. Consult Discharge Plan - Plan Referrals: Dane Justin MD [Primary Care Provider] -
[2017-07-19 17:54] LABS: Prothrombin Time 21.4 Seconds (9.4-12.1)
[2017-07-20] MEDS ORDERED: Melatonin 3 MG TABLET PO ONE (01:45)
[2017-07-20] MEDS: OXYCODONE Oral CONC 10 MG/0.5 ML ORAL.SYG SL PRN (04:04)
[2017-07-20 04:31] LABS: Basophils % 0.2 %; Eosinophils # 0.1 K/mcL (0.0-0.6); Eosinophils % 1.2 %; Hemoglobin 7.9 g/dL (12.9-16.9); Immature Granulocytes % 0.5 % (0-4); Lymphocytes # 1.5 K/mcL (0.6-4.6); Lymphocytes % 18.4 %; Mean Corpuscular HGB Conc 29.3 g/dL (31.6-35.5); Mean Corpuscular Hemoglobin 23.2 pg (28.0-33.3); Mean Corpuscular Volume 79.4 fL (83.0-100.0); Mean Platelet Volume 10.2 fL (9.4-12.4); Monocytes # 0.8 K/mcL (0.0-1.3); Monocytes % 9.7 %; Neutrophils # 5.6 K/mcL (1.6-8.9); Nucleated Red Blood Cells 0.2 /100 WBC (0); Platelet Count 266 K/mcL (140-400); Red Cell Distribution Width 21.3 % (11.5-14.5)
[2017-07-20 04:56] LABS: Alanine Aminotransferase 17 Units/L (7-52); Albumin 2.7 g/dL (3.5-5.7); Albumin/Globulin Ratio 1.1 (1.1-2.2); Alkaline Phosphatase 81 Units/L (34-104); Aspartate Amino Transferase 25 Units/L (13-39); BUN/Creatinine Ratio 20 (6-26); Bilirubin,Total 0.9 mg/dL (0.3-1.0); Blood Urea Nitrogen 12 mg/dL (8-23); Calcium 7.8 mg/dL (8.6-10.3); Carbon Dioxide 28 mEq/L (23-29); Chloride 107 mEq/L (98-107); Globulin 2.4 g/dL (2.4-3.5); Glucose 125 mg/dL (70-105); Magnesium 1.9 mg/dL (1.6-2.6); Osmolality,Calculated 289 (280-300); Phosphorous 2.8 mg/dL (2.7-4.5); Potassium 3.2 mEq/L (3.5-5.1); Sodium 139 mEq/L (136-145); Total Protein 5.1 g/dL (6.4-8.9); eGFR For African Americans > 60 (> 60); eGFR For Non-African Americans > 60 (> 60)
[2017-07-20] MEDS: *HR* LORazepam 2 MG/ML VIAL IVP SCH ×3 (05:07→21:23)
[2017-07-20] MEDS: Insulin LISPRO 300 UNITS/3 ML VIAL SQ SCH ×3 (06:34→17:43)
[2017-07-20] MEDS: Budesonide/Formoterol 160/4.5 MDI IH SCH ×2 (08:04→20:36)
--- NOTE | 2017-07-20 08:28 | Internal Med Progress Note ---
<Houston Prince - Last Filed: 07/20/17 15:44> Date of Encounter: 07/20/17 Time of Encounter: 08:26 - Assessment and plan (1) GI bleed Current Visit: Yes Status: Suspected Assessment and plan: 82/male with Multiple comorbid conditions: Hypertension/hyperlipidemia/A. fib/ coronary artery disease with recent 2 stents with current anticoagulant: Aspirin /Plavix/Xarelto came to emergency room with worsening vomiting along with progressively dark stool for several days. Stool guaiac was positive. Patient underwent partial colectomy for small bowel obstruction and incisional hernia. Patient continued to have decreasing hemoglobin and surgery recommends endoscopy and colonoscopy after patient has stabilized from recovery of SBO. Mr. Yeung is nothing by mouth postoperatively with hypoactive bowel sounds no bowel movements or flatulence and unable to take oral anticoagulants. Discussion between primary team and cardiology with recommendations for 300 mg rectal aspirin and heparin gtt. if tolerated, to help prevent potential stent thrombosis. He is off dual anti-platelet therapy with a recent stents placed on 06/19/2017 and only on rectal aspirin increasing his risk of stent thrombosis with high mortality risk. - Surgery: IV PPI/blood transfusions/NG placement/CT abdomen and pelvis/close monitoring/nothing by mouth/plan for endoscopy when patient is more stable 07/17: Restart heparin drip as discussed, patient does have some mild red tinge to NG tube output concerning for potential gastric ulcers also had hematuria last evening which tapered off this morning. General surgery aware, will continue to monitor hemoglobin replace. He sees as necessary. 07/18: Heparin drip restarted yesterday, hemoglobin 8.0 down from 8.5 yesterday. Patient is at high risk for continued bleed but benefits outweigh the risk at this time. 07/19: NG tube removed, continue heparin drip, hemoglobin improved to 9.6 from 8.0, no blood transfusion overnight. Hemoglobin appears to be stable we will continue to monitor. 07/20: Hgb 7.9, Stop Heparin drip. Patient started on Plavix and oral ASA yesterday for stent coverage. Replace H&H if continues to fall below 8.0 plan - Continue heparin drip. Monitor H&H - We will closely monitor patient's hemoglobin/hematocrit. Every 8 hours H&H - We will recommend colonoscopy and endoscopy when patient is stable for procedure. Qualifiers: GI bleed type/associated pathology: gastritis Gastritis type: acute gastritis Qualified Code(s): K29.01 - Acute gastritis with bleeding (2) Acute blood loss anemia Current Visit: Yes Status: Acute Assessment and plan: Acute blood loss anemia in the setting of GI bleed, status post partial small bowel resection. Patient is a recent cardiac stent placement 06/19/2017 requiring dual antiplatelet therapy. Risks and benefits were discussed with the patient and heparin drip was restarted, rectal aspirin daily. 07/19: Continue heparin drip, hemoglobin stable. NG tube out, no hematuria noted. 07/20: Drop in H&H, Heparin D/C'd, Continue to monitor and replace as necessary. Surgery following. - Hemoglobin stable currently, will replace PRBCs when hemoglobin falls below 8.0. - Patient will need EGD and colonoscopy for evaluation of bleed when he is stable. (3) Hypertension Current Visit: No Status: Chronic Assessment and plan: Blood pressure stable, continue to hold antihypertensive medications. Patient is nothing by mouth. Qualifiers: Hypertension type: essential hypertension Qualified Code(s): I10 - Essential (primary) hypertension (4) CAD (coronary artery disease) Current Visit: Yes Status: Chronic Assessment and plan: 82-year-old male with significance vascular disease with recent drug-eluting stent to the proximal LAD 06/19/2017 recently on Plavix, aspirin for dual antiplatelet therapy and Xarelto for Atrial fibrillation. He has had multiple previous vascular surgeries with femorofemoral bypass and repair completed at this facility. - Echocardiogram from June demonstrates an ejection fraction of 35-40% with current stable systolic heart failure. - He was admitted with anemia in the setting of small bowel obstruction and GI bleed. He has been off aspirin and Plavix with recent stent increasing risk for stent thrombosis and high mortality rate. He has since been on rectal aspirin 300 mg daily and heparin GTT. The heparin drip was discontinued yesterday in the setting of anemia requiring 2 units PRBC transfusion. His atrial fibrillation anticoagulation has been held in the setting of GI bleed. 07/17/2017: Hemoglobin 8.7, discussed risks and benefits restarting heparin drip with Mr. Yeung and his family, emphasized the risk of stent rethrombosis and if necessary further blood transfusions. They are agreeable to restarting heparin drip and continue monitoring hemoglobin levels. We will give a EPIV for axis if necessary. 07/18/2017: Stable. 07/20: Continue Plavix, and ASA. Stop heparin drip. Plan: - Continue ASA and Plavix. - Continue cardiac monitoring - Risks and benefits discussed with patient and family. Qualifiers: Coronary Disease-Associated Artery/Lesion type: [place] artery [place] vs. transplanted heart: [place] heart Associated angina: without angina Qualified Code(s): I25.10 - Atherosclerotic heart disease of [place] coronary artery without angina pectoris (5) Status post small bowel resection Current Visit: Yes Status: Acute Assessment and plan: Postoperative partial colectomy with 10 cm small bowel resected secondary to SBO and incisional hernia. - Surgical management and recommendations from Dr. Swanson with general surgery appreciated - NG tube removed today by surgery. - We will receive supplemental nutrition for healing. (6) Systolic heart failure Current Visit: Yes Status: Chronic Assessment and plan: systolic heart failure with ejection fraction of 35-40% with recent JATINDER placed 06/19/2017. - Increased volume status likely secondary to poor nutrition and third spacing. + 2.2L, will hold diuresis at this time do to BP and will fluid restrict. - Cardiology following appreciate recommendations - Continued on Aldactone, Plavix held in the setting of GI bleed and nothing by mouth,aspirin, unable to be on beta risa and JOSELITO inhibitor due to low bp. - Continue to monitor, strict intake and output monitoring, daily weights - Oral intake will restrict to 1.5 L fluid restrictions, 2 g sodium restrictions. Qualifiers: Heart failure chronicity: chronic Qualified Code(s): I50.22 - Chronic systolic (congestive) heart failure (7) Peripheral vascular disease Current Visit: No Status: Chronic Assessment and plan: Known peripheral vascular disease. Chronic history. (8) PAF (paroxysmal atrial fibrillation) Current Visit: Yes Status: Chronic Assessment and plan: Known history of proximal atrial fibrillation currently heart rate is irregularly irregular. Anticoagulation held in the setting of GI bleed - Continue to monitor rate on cardiac monitoring - [id number] (Age, HTN, CAD, CHF). High CVA risk, but in setting of GI bleed need to stop Xarelto. (9) Decubitus ulcer of coccyx, stage 2 Current Visit: Yes Status: Acute Assessment and plan: Stage II decubitus ulcer of the coccyx identified today. Patient has poor nutrition, immobility secondary to current medical condition. - Picc line for TPN, D/c EPIV. Plan: - Wound care - Turn patient frequently - Start TPN for nutritional status. Daily magnesium and phosphorus replacement as needed. - Frequent decub ulcer checks. (10) Edema of penis Current Visit: Yes Status: Acute Assessment and plan: Patient has edema of the penis that has progressively increased likely secondary to poor nutritional status. Given location of edema likely secondary to dependency of volume. - Seen by Urology who recommend early ambulation. Plan: - Closely monitor volume status - Start TPN for nutritional status - Increase activity with PT/OT (11) DVT prophylaxis Current Visit: No Status: Acute Assessment and plan: SCD and Plavix and ASA. - Subjective Interval history: Mr. Yeung 82-year-old male has been seen and evaluated at patient bedside this morning. He is alert awake interactive in no acute distress. He is doing well using his breathing treatments. He continues to focus on recovery. No acute pain as it is tolerated. mild shortness of breath. Tolerating TPN. - Constitutional Vitals: Temp Pulse Resp BP Pulse Ox 98.4 F 99 19 103/78 98 07/20/17 07:12 07/20/17 07:12 07/20/17 08:04 07/20/17 08:04 07/20/17 08:04 General appearance: Present: mild distress, A&O X 3 Exam: General: Patient alert, awake, oriented 3, interactive, in no acute distress HEENT: Normocephalic, atraumatic, pupils equal reactive to light, oral mucosa dry, uvula midline, neck supple trachea midline no palpable lymphadenopathy, no thyromegaly. Chest: Symmetric bilateral correlating with respiratory effort, effort nonlabored. Cardiac: Regular rate and rhythm, positive S1 and S2. no bruits appreciated bilateral carotids, Radial pulses 2+ bilateral, posterior tibial and dorsal pedal pulses 2+ bilateral. Respiratory: Ronchi appreciated in b/l lung bases. Abdomen: Mildly distended, tympanic, mild tenderness to light palpation. Midline abdominal incision healing well without drainage or discharge. Active bowel sounds. Extremities: Symmetric bilateral, bilateral lower extremities without erythema or edema patient moving all 4 extremities spontaneously. Stage II Coxygeal decub. Penile edema. Neurologic: No focal deficits appreciated on examination. Face symmetric, muscle strength symmetric bilateral upper and lower extremities. Internal Medicine: Result - Labs CBC & Chem 7: 07/20/17 04:22 07/20/17 04:22 Labs: Short CBC 07/19/17 07/20/17 Range/Units 07:43 04:22 WBC 8.1 (4.3-11.1) K/mcL Hgb 7.9 L D (12.9-16.9) g/dL Hct 27.0 L (37.5-50.1) % Plt Count 266 (140-400) K/mcL Neutrophils # 6.0 5.6 (1.6-8.9) K/mcL BMP 07/20/17 04:22 Sodium 139 Potassium 3.2 L Chloride 107 Carbon Dioxide 28 BUN 12 Creatinine 0.59 L Glucose 125 H Calcium 7.8 L Liver Function 07/20/17 Range/Units 04:22 Total Bilirubin 0.9 (0.3-1.0) mg/dL AST 25 (13-39) Units/L ALT 17 (7-52) Units/L Alkaline Phosphatase 81 (34-104) Units/L Albumin 2.7 L (3.5-5.7) g/dL - ABG Interpretation ABG results: PT/INR, D-dimer PT 21.4 Seconds (9.4-12.1) H D 07/19/17 17:10 - Impressions Impressions Chest X-Ray 07/19/17 19:39 IMPRESSION: PICC line in good position. Increasing bibasilar edema, atelectasis and/ or pneumonia, and left greater than right pleural effusions D/ / Christopher Garcia MD / Christopher Garcia MD Interpreting Provider: Christopher Garcia MD - VTE Reasons for not Prescribing Prophylaxis: Not indicated-Anticoagulated or INR therapeutic Documentation of Mechanical Device: Intermittent pneumatic compression device Consult Discharge Plan - Plan Referrals: Dane Justin MD [Primary Care Provider] - <Hemal Mcdonald - Last Filed: 07/20/17 17:31> Date of Encounter: 07/20/17 - Assessment and plan (1) PAF (paroxysmal atrial fibrillation) Current Visit: Yes Status: Chronic (2) Incisional hernia of anterior abdominal wall with obstruction Current Visit: Yes Status: Acute (3) CAD (coronary artery disease) Current Visit: Yes Status: Chronic Qualifiers: Coronary Disease-Associated Artery/Lesion type: [place] artery [place] vs. transplanted heart: [place] heart Associated angina: without angina Qualified Code(s): I25.10 - Atherosclerotic heart disease of [place] coronary artery without angina pectoris (4) Status post small bowel resection Current Visit: Yes Status: Acute (5) Anemia Current Visit: Yes Status: Acute Qualifiers: Anemia type: other cause Other causes of anemia: acute posthemorrhagic Qualified Code(s): D62 - Acute posthemorrhagic anemia (6) GI bleed Current Visit: Yes Status: Suspected Qualifiers: GI bleed type/associated pathology: gastritis Gastritis type: acute gastritis Qualified Code(s): K29.01 - Acute gastritis with bleeding (7) Systolic heart failure Current Visit: Yes Status: Chronic Qualifiers: Heart failure chronicity: chronic Qualified Code(s): I50.22 - Chronic systolic (congestive) heart failure (8) Hypertension Current Visit: No Status: Chronic Qualifiers: Hypertension type: essential hypertension Qualified Code(s): I10 - Essential (primary) hypertension (9) Sacral decubitus ulcer, stage II Current Visit: Yes Status: Acute - Constitutional Vitals: Temp Pulse Resp BP Pulse Ox 97.9 F 143 20 105/83 100 07/20/17 16:03 07/20/17 16:03 07/20/17 16:03 07/20/17 16:03 07/20/17 16:03 Internal Medicine: Result - Labs CBC & Chem 7: 07/20/17 15:52 07/20/17 04:22 Labs: Short CBC 07/20/17 07/20/17 Range/Units 04:22 15:52 WBC 8.1 (4.3-11.1) K/mcL Hgb 7.9 L D 8.2 L (12.9-16.9) g/dL Hct 27.0 L 28.5 L (37.5-50.1) % Plt Count 266 (140-400) K/mcL Neutrophils # 5.6 (1.6-8.9) K/mcL BMP 07/20/17 04:22 Sodium 139 Potassium 3.2 L Chloride 107 Carbon Dioxide 28 BUN 12 Creatinine 0.59 L Glucose 125 H Calcium 7.8 L Liver Function 07/20/17 Range/Units 04:22 Total Bilirubin 0.9 (0.3-1.0) mg/dL AST 25 (13-39) Units/L ALT 17 (7-52) Units/L Alkaline Phosphatase 81 (34-104) Units/L Albumin 2.7 L (3.5-5.7) g/dL - ABG Interpretation ABG results: PT/INR, D-dimer PT 21.4 Seconds (9.4-12.1) H D 07/19/17 17:10 - Impressions Impressions Chest X-Ray 07/19/17 19:39 IMPRESSION: PICC line in good position. Increasing bibasilar edema, atelectasis and/ or pneumonia, and left greater than right pleural effusions D/ / Christopher Garcia MD / Christopher Garcia MD Interpreting Provider: Christopher Garcia MD Chest X-Ray 07/20/17 08:25 IMPRESSION: Findings suggesting-decreased pulmonary edema. Persistent bilateral pleural effusions and bibasilar airspace disease. D/ / Mary Lyons Cha, MD / Mary Lyons Cha, MD Interpreting Provider: Mary Lyons Cha, MD - Attending Attestation I examined this patient and my medical decision-making was reviewed with the Resident Physician on 07/20/17. I agree with the documented findings, disposition and treatment plan as described except to the extent set forth below. Mr Yeung is currently admitted for bowel obstruction and post op issues. He remains moderate to high risk due to potential for worsening clinical status. Mr Yeung is resting comfortably. His heartrate has been elevated at times. No fever or chills. Breathing a little better. TPN started today to increase his overall nutritional status for a few days (help heal wound). Exam alert Comfortable Mucus membranes dry Heart irreg and tachy Lungs with scattered rhonchi Abd soft I/P 1. Rapid a fib 2. Decub Further diagnoses and plan as above. Heparin now stopped and Plavix restarted. Monitoring H/H.
[2017-07-20] MEDS: Pantoprazole 40 MG VIAL IVP SCH ×2 (09:08→21:23)
[2017-07-20] MEDS: Potassium Chloride Elixir 20 MEQ/15 ML UDC PO SCH (09:11)
[2017-07-20] MEDS: Artificial Tears SOLN 15 ML BOTTLE BOTH EYES SCH ×4 (09:22→22:05)
[2017-07-20] MEDS: Aspirin Enteric Coated 81 MG Tablet PO SCH (11:31)
[2017-07-20] MEDS: Leptospermum Honey Paste 44 ML TUBE TP SCH ×2 (11:31→22:05)
[2017-07-20] MEDS: Silvasorb 44.4 ML TUBE TP SCH (14:36)
[2017-07-20] MEDS: Ipratropium/Albuterol Neb 3 ML IH PRN ×2 (14:39→20:37)
[2017-07-20 16:03] LABS: Hematocrit 28.5 % (37.5-50.1); Hemoglobin 8.2 g/dL (12.9-16.9)
[2017-07-20] MEDS ORDERED: Clinimix E 5%-15% SOLUTION 2,000 ML with MVI, adult with vitamin K 10 ML IVC SCH (17:00)
--- NOTE | 2017-07-20 17:43 | General Surgery Progress Note ---
Date of Encounter: 07/20/17 Time of Encounter: 10:05 - Assessment and Plan (1) Incisional hernia of anterior abdominal wall with obstruction Current Visit: Yes Status: Acute Continue diet as tolerated and will advance when he feels appropriate Subjective Patient reports: no new complaints Objective Vital Signs - Last 8 Hours Temp Pulse Resp BP Pulse Ox 07/20/17 16:03 97.9 F 143 20 105/83 100 07/20/17 15:30 156 111/76 07/20/17 14:39 20 124/81 100 07/20/17 11:48 97.4 F L 106 18 124/81 100 Intake and Output 07/20/17 07/20/17 07/20/17 07:59 15:59 23:59 Intake Total 0 / 0 220 / 220 Output Total 300 / 300 125 / 125 100 / 100 Balance -300 / -300 95 / 95 -100 / -100 Intake: Oral 0 / 0 220 / 220 Output: Urine 300 / 300 125 / 125 100 / 100 Other: # Voids 3 Weight 71.6 kg Blood Glucose* 143 147 114 Patient Weight 07/20/17 23:59 Weight 71.6 kg - Eyes PERRL - ENT normal pinna, normal nares - Respiratory normal expansion, normal respiratory effort - Cardiovascular Cardiovascular exam: Present: RRR - Abdomen Abdomen: Present: bowel sounds present, soft - Incision Incision: Present: clean and dry, intact - Labs 07/20/17 15:52 07/20/17 04:22 Diabetes panel 07/20/17 Range/Units 04:22 Sodium 139 (136-145) mEq/L Potassium 3.2 L (3.5-5.1) mEq/L Chloride 107 (98-107) mEq/L Carbon Dioxide 28 (23-29) mEq/L BUN 12 (8-23) mg/dL Creatinine 0.59 L (0.70-1.30) mg/dL Glucose 125 H (70-105) mg/dL Calcium 7.8 L (8.6-10.3) mg/dL AST 25 (13-39) Units/L ALT 17 (7-52) Units/L Alkaline Phosphatase 81 (34-104) Units/L Albumin 2.7 L (3.5-5.7) g/dL Calcium panel 07/20/17 Range/Units 04:22 Calcium 7.8 L (8.6-10.3) mg/dL Phosphorus 2.8 (2.7-4.5) mg/dL Albumin 2.7 L (3.5-5.7) g/dL Pituitary panel 07/20/17 Range/Units 04:22 Sodium 139 (136-145) mEq/L Potassium 3.2 L (3.5-5.1) mEq/L Chloride 107 (98-107) mEq/L Carbon Dioxide 28 (23-29) mEq/L BUN 12 (8-23) mg/dL Creatinine 0.59 L (0.70-1.30) mg/dL Glucose 125 H (70-105) mg/dL Calcium 7.8 L (8.6-10.3) mg/dL Adrenal panel 07/20/17 Range/Units 04:22 Sodium 139 (136-145) mEq/L Potassium 3.2 L (3.5-5.1) mEq/L Chloride 107 (98-107) mEq/L Carbon Dioxide 28 (23-29) mEq/L BUN 12 (8-23) mg/dL Creatinine 0.59 L (0.70-1.30) mg/dL Glucose 125 H (70-105) mg/dL Calcium 7.8 L (8.6-10.3) mg/dL Total Bilirubin 0.9 (0.3-1.0) mg/dL AST 25 (13-39) Units/L ALT 17 (7-52) Units/L Alkaline Phosphatase 81 (34-104) Units/L Albumin 2.7 L (3.5-5.7) g/dL - VTE Reasons for not Prescribing Prophylaxis: Not indicated-Anticoagulated or INR therapeutic Documentation of Mechanical Device: Intermittent pneumatic compression device Consult Discharge Plan - Plan Referrals: Dane Justin MD [Primary Care Provider] -
[2017-07-20] MEDS: *HR* Metoprolol 5 MG/5 ML VIAL IVP SCH (17:45)
[2017-07-21] MEDS: *HR* Metoprolol 5 MG/5 ML VIAL IVP SCH ×4 (00:29→18:13)
[2017-07-21] MEDS: Ipratropium/Albuterol Neb 3 ML IH PRN ×3 (01:25→21:01)
[2017-07-21] MEDS ORDERED: *HR* LORazepam 0.5 MG TABLET PO ONE (02:07)
[2017-07-21] MEDS: Insulin LISPRO 300 UNITS/3 ML VIAL SQ SCH ×4 (03:02→19:25)
[2017-07-21] MEDS: *HR* LORazepam 2 MG/ML VIAL IVP SCH ×3 (05:19→22:27)
[2017-07-21 05:55] LABS: Basophils % 0.2 %; Eosinophils # 0.1 K/mcL (0.0-0.6); Eosinophils % 1.2 %; Hematocrit 26.5 % (37.5-50.1); Hemoglobin 7.8 g/dL (12.9-16.9); Immature Granulocytes % 0.8 % (0-4); Lymphocytes # 1.2 K/mcL (0.6-4.6); Lymphocytes % 14.1 %; Mean Corpuscular HGB Conc 29.4 g/dL (31.6-35.5); Mean Corpuscular Hemoglobin 23.4 pg (28.0-33.3); Mean Corpuscular Volume 79.6 fL (83.0-100.0); Mean Platelet Volume 10.9 fL (9.4-12.4); Monocytes % 12.3 %; Platelet Count 253 K/mcL (140-400); Red Blood Count 3.33 M/mcL (4.19-5.50); Red Cell Distribution Width 21.6 % (11.5-14.5); Segmented Neutrophils % 71.4 %
[2017-07-21 06:32] LABS: Alanine Aminotransferase 16 Units/L (7-52); Albumin 2.5 g/dL (3.5-5.7); Alkaline Phosphatase 73 Units/L (34-104); Aspartate Amino Transferase 21 Units/L (13-39); BUN/Creatinine Ratio 29 (6-26); Bilirubin,Total 0.7 mg/dL (0.3-1.0); Blood Urea Nitrogen 14 mg/dL (8-23); Calcium 7.8 mg/dL (8.6-10.3); Carbon Dioxide 29 mEq/L (23-29); Chloride 105 mEq/L (98-107); Globulin 2.5 g/dL (2.4-3.5); Glucose 143 mg/dL (70-105); Magnesium 1.9 mg/dL (1.6-2.6); Osmolality,Calculated 289 (280-300); Phosphorous 2.5 mg/dL (2.7-4.5); Potassium 3.2 mEq/L (3.5-5.1); Sodium 138 mEq/L (136-145); eGFR For African Americans > 60 (> 60); eGFR For Non-African Americans > 60 (> 60)
[2017-07-21] MEDS: Budesonide/Formoterol 160/4.5 MDI IH SCH ×2 (07:52→21:02)
[2017-07-21] MEDS: Potassium Chloride Elixir 20 MEQ/15 ML UDC PO SCH (09:24)
[2017-07-21] MEDS: Pantoprazole 40 MG VIAL IVP SCH ×2 (09:27→22:27)
[2017-07-21] MEDS: Aspirin Enteric Coated 81 MG Tablet PO SCH (09:27)
[2017-07-21] MEDS: Artificial Tears SOLN 15 ML BOTTLE BOTH EYES SCH ×4 (09:38→23:50)
[2017-07-21] MEDS ORDERED: Furosemide 40 MG/4 ML VIAL IVP ONE (13:25)
--- NOTE | 2017-07-21 13:42 | Internal Med Progress Note ---
<Houston Prince - Last Filed: 07/21/17 15:55> Date of Encounter: 07/21/17 Time of Encounter: 13:26 - Assessment and plan (1) GI bleed Current Visit: Yes Status: Suspected Assessment and plan: 82/male with Multiple comorbid conditions: Hypertension/hyperlipidemia/A. fib/ coronary artery disease with recent 2 stents with current anticoagulant: Aspirin /Plavix/Xarelto came to emergency room with worsening vomiting along with progressively dark stool for several days. Stool guaiac was positive. Patient underwent partial colectomy for small bowel obstruction and incisional hernia. Patient continued to have decreasing hemoglobin and surgery recommends endoscopy and colonoscopy after patient has stabilized from recovery of SBO. Mr. Yeung is nothing by mouth postoperatively with hypoactive bowel sounds no bowel movements or flatulence and unable to take oral anticoagulants. Discussion between primary team and cardiology with recommendations for 300 mg rectal aspirin and heparin gtt. if tolerated, to help prevent potential stent thrombosis. He is off dual anti-platelet therapy with a recent stents placed on 06/19/2017 and only on rectal aspirin increasing his risk of stent thrombosis with high mortality risk. - Surgery: IV PPI/blood transfusions/NG placement/CT abdomen and pelvis/close monitoring/nothing by mouth/plan for endoscopy when patient is more stable 07/17: Restart heparin drip as discussed, patient does have some mild red tinge to NG tube output concerning for potential gastric ulcers also had hematuria last evening which tapered off this morning. General surgery aware, will continue to monitor hemoglobin replace. He sees as necessary. 07/18: Heparin drip restarted yesterday, hemoglobin 8.0 down from 8.5 yesterday. Patient is at high risk for continued bleed but benefits outweigh the risk at this time. 07/19: NG tube removed, continue heparin drip, hemoglobin improved to 9.6 from 8.0, no blood transfusion overnight. Hemoglobin appears to be stable we will continue to monitor. 07/20: Hgb 7.9, Stop Heparin drip. Patient started on Plavix and oral ASA yesterday for stent coverage. Replace H&H if continues to fall below 8.0 07/21: Hgb 7.8, Patient continues to feel weak, Continue Plavix and ASA for stent coverage. 1 unit PRBC's transfusion plan - Continue Plavix and ASA - We will closely monitor patient's hemoglobin/hematocrit. Every 8 hours H&H - 1 unit PRBCs today. - We will recommend colonoscopy and endoscopy when patient is stable for procedure. Qualifiers: GI bleed type/associated pathology: gastritis Gastritis type: acute gastritis Qualified Code(s): K29.01 - Acute gastritis with bleeding (2) Acute blood loss anemia Current Visit: Yes Status: Acute Assessment and plan: Acute blood loss anemia in the setting of GI bleed, status post partial small bowel resection. Patient is a recent cardiac stent placement 06/19/2017 requiring dual antiplatelet therapy. Risks and benefits were discussed with the patient and heparin drip was restarted, rectal aspirin daily. 07/19: Continue heparin drip, hemoglobin stable. NG tube out, no hematuria noted. 07/20: Drop in H&H, Heparin D/C'd, Continue to monitor and replace as necessary. Surgery following. 07/21: will replace PRBCs today, with dose of lasix. - Hemoglobin stable currently, will replace PRBCs when hemoglobin falls below 8.0. - Patient will need EGD and colonoscopy for evaluation of bleed when he is stable. (3) Hypertension Current Visit: No Status: Chronic Assessment and plan: Blood pressure stable, continue to hold antihypertensive medications. Patient is nothing by mouth. Qualifiers: Hypertension type: essential hypertension Qualified Code(s): I10 - Essential (primary) hypertension (4) CAD (coronary artery disease) Current Visit: Yes Status: Chronic Assessment and plan: 82-year-old male with significance vascular disease with recent drug-eluting stent to the proximal LAD 06/19/2017 recently on Plavix, aspirin for dual antiplatelet therapy and Xarelto for Atrial fibrillation. He has had multiple previous vascular surgeries with femorofemoral bypass and repair completed at this facility. - Echocardiogram from June demonstrates an ejection fraction of 35-40% with current stable systolic heart failure. - He was admitted with anemia in the setting of small bowel obstruction and GI bleed. He has been off aspirin and Plavix with recent stent increasing risk for stent thrombosis and high mortality rate. He has since been on rectal aspirin 300 mg daily and heparin GTT. The heparin drip was discontinued yesterday in the setting of anemia requiring 2 units PRBC transfusion. His atrial fibrillation anticoagulation has been held in the setting of GI bleed. 07/17/2017: Hemoglobin 8.7, discussed risks and benefits restarting heparin drip with Mr. Yeung and his family, emphasized the risk of stent rethrombosis and if necessary further blood transfusions. They are agreeable to restarting heparin drip and continue monitoring hemoglobin levels. We will give a EPIV for axis if necessary. 07/18/2017: Stable. 07/20: Continue Plavix, and ASA. Stop heparin drip. 07/21: continue Plavix and ASA Plan: - Continue ASA and Plavix. - Continue cardiac monitoring - Risks and benefits discussed with patient and family. Qualifiers: Coronary Disease-Associated Artery/Lesion type: [place] artery [place] vs. transplanted heart: [place] heart Associated angina: without angina Qualified Code(s): I25.10 - Atherosclerotic heart disease of [place] coronary artery without angina pectoris (5) Status post small bowel resection Current Visit: Yes Status: Acute Assessment and plan: Postoperative partial colectomy with 10 cm small bowel resected secondary to SBO and incisional hernia. - Surgical management and recommendations from Dr. Swanson with general surgery appreciated - NG tube removed today by surgery. - We will receive supplemental nutrition for healing. (6) Systolic heart failure Current Visit: Yes Status: Chronic Assessment and plan: systolic heart failure with ejection fraction of 35-40% with recent JATINDER placed 06/19/2017. - Increased volume status likely secondary to poor nutrition and third spacing. + 2.2L, will hold diuresis at this time do to BP and will fluid restrict. - Cardiology following appreciate recommendations - Continued on Aldactone, Plavix held in the setting of GI bleed and nothing by mouth,aspirin, unable to be on beta risa and JOSELITO inhibitor due to low bp. - Continue to monitor, strict intake and output monitoring, daily weights - Oral intake will restrict to 1.5 L fluid restrictions, 2 g sodium restrictions. Qualifiers: Heart failure chronicity: chronic Qualified Code(s): I50.22 - Chronic systolic (congestive) heart failure (7) Peripheral vascular disease Current Visit: No Status: Chronic Assessment and plan: Known peripheral vascular disease. Chronic history. (8) PAF (paroxysmal atrial fibrillation) Current Visit: Yes Status: Chronic Assessment and plan: Known history of proximal atrial fibrillation currently heart rate is irregularly irregular. Anticoagulation held in the setting of GI bleed - Continue to monitor rate on cardiac monitoring - [id number] 5 (Age, HTN, CAD, CHF). High CVA risk, but in setting of GI bleed, hold Xarelto. (9) Decubitus ulcer of coccyx, stage 2 Current Visit: Yes Status: Acute Assessment and plan: Stage II decubitus ulcer of the coccyx identified today. Patient has poor nutrition, immobility secondary to current medical condition. - Picc line for TPN, D/c EPIV. Plan: - Wound care - Turn patient frequently - Start TPN for nutritional status. Daily magnesium and phosphorus replacement as needed. - Frequent decub ulcer checks. (10) Edema of penis Current Visit: Yes Status: Acute Assessment and plan: Patient has edema of the penis that has progressively increased likely secondary to poor nutritional status. Given location of edema likely secondary to dependency of volume. - Seen by Urology who recommend early ambulation. Plan: - Closely monitor volume status - Start TPN for nutritional status - Increase activity with PT/OT (11) DVT prophylaxis Current Visit: No Status: Acute Assessment and plan: SCD and Plavix and ASA. - Subjective Interval history: Mr. Yeung 82-year-old male has been seen and evaluated at patient bedside this morning. He is alert awake interactive and complains of feeling short of breath. He feels like he is not doing well even though his oxygen saturations are 100% on his home 3L [place]. He continues to have abdominal pain with movement and coughing. He says his urinary output has been low despite his volume and he has lack of appetite. - Constitutional Vitals: Temp Pulse Resp BP Pulse Ox 97.8 F 110 23 128/84 100 07/21/17 11:11 07/21/17 11:11 07/21/17 11:11 07/21/17 11:11 07/21/17 11:11 General appearance: Present: mild distress, A&O X 3 Exam: General: Patient alert, awake, oriented 3, interactive, in no acute distress HEENT: Normocephalic, atraumatic, pupils equal reactive to light, oral mucosa dry, uvula midline, neck supple trachea midline no palpable lymphadenopathy, no thyromegaly. Chest: Symmetric bilateral correlating with respiratory effort, effort nonlabored. Cardiac: Regular rate and rhythm, positive S1 and S2. no bruits appreciated bilateral carotids, Radial pulses 2+ bilateral, posterior tibial and dorsal pedal pulses 2+ bilateral. Respiratory: Ronchi appreciated in b/l lung bases. Abdomen: Mildly distended, tympanic, mild tenderness to light palpation. Midline abdominal incision healing well without drainage or discharge. Active bowel sounds. Extremities: Symmetric bilateral, bilateral lower extremities without erythema or edema patient moving all 4 extremities spontaneously. Stage II Coxygeal decub. Penile edema, slightly worse compared to yesterday. Neurologic: No focal deficits appreciated on examination. Face symmetric, muscle strength symmetric bilateral upper and lower extremities. Internal Medicine: Result - Labs CBC & Chem 7: 07/21/17 05:35 07/21/17 05:35 Labs: Short CBC 07/20/17 07/21/17 Range/Units 15:52 05:35 WBC 8.5 (4.3-11.1) K/mcL Hgb 8.2 L 7.8 L (12.9-16.9) g/dL Hct 28.5 L 26.5 L (37.5-50.1) % Plt Count 253 (140-400) K/mcL Neutrophils # 6.0 (1.6-8.9) K/mcL BMP 07/21/17 05:35 Sodium 138 Potassium 3.2 L Chloride 105 Carbon Dioxide 29 BUN 14 Creatinine 0.49 L Glucose 143 H Calcium 7.8 L Liver Function 07/21/17 Range/Units 05:35 Total Bilirubin 0.7 (0.3-1.0) mg/dL AST 21 (13-39) Units/L ALT 16 (7-52) Units/L Alkaline Phosphatase 73 (34-104) Units/L Albumin 2.5 L (3.5-5.7) g/dL - ABG Interpretation ABG results: PT/INR, D-dimer PT 21.4 Seconds (9.4-12.1) H D 07/19/17 17:10 - Impressions Impressions Chest X-Ray 07/20/17 08:25 IMPRESSION: Findings suggesting-decreased pulmonary edema. Persistent bilateral pleural effusions and bibasilar airspace disease. D/ / Mary Lyons Cha, MD / Mary Lyons Cha, MD Interpreting Provider: Mary Lyons Cha, MD - VTE Reasons for not Prescribing Prophylaxis: Not indicated-Anticoagulated or INR therapeutic Documentation of Mechanical Device: Intermittent pneumatic compression device Consult Discharge Plan - Plan Referrals: Dane Justin MD [Primary Care Provider] - <Hemal Mcdonald - Last Filed: 07/21/17 18:42> Date of Encounter: 07/21/17 - Assessment and plan (1) PAF (paroxysmal atrial fibrillation) Current Visit: Yes Status: Chronic (2) Incisional hernia of anterior abdominal wall with obstruction Current Visit: Yes Status: Acute (3) CAD (coronary artery disease) Current Visit: Yes Status: Chronic Qualifiers: Coronary Disease-Associated Artery/Lesion type: [place] artery [place] vs. transplanted heart: [place] heart Associated angina: without angina Qualified Code(s): I25.10 - Atherosclerotic heart disease of [place] coronary artery without angina pectoris (4) Status post small bowel resection Current Visit: Yes Status: Acute (5) Anemia Current Visit: Yes Status: Acute Qualifiers: Anemia type: other cause Other causes of anemia: acute posthemorrhagic Qualified Code(s): D62 - Acute posthemorrhagic anemia (6) GI bleed Current Visit: Yes Status: Suspected Qualifiers: GI bleed type/associated pathology: gastritis Gastritis type: acute gastritis Qualified Code(s): K29.01 - Acute gastritis with bleeding (7) Systolic heart failure Current Visit: Yes Status: Chronic Qualifiers: Heart failure chronicity: acute on chronic Qualified Code(s): I50.23 - Acute on chronic systolic (congestive) heart failure (8) Hypertension Current Visit: No Status: Chronic Qualifiers: Hypertension type: essential hypertension Qualified Code(s): I10 - Essential (primary) hypertension (9) Sacral decubitus ulcer, stage II Current Visit: Yes Status: Acute (10) Urinary retention due to benign prostatic hyperplasia Current Visit: Yes Status: Suspected Assessment and plan: [place] - Constitutional Vitals: Temp Pulse Resp BP Pulse Ox 97.8 F 110 23 144/93 100 07/21/17 11:11 07/21/17 11:11 07/21/17 11:11 07/21/17 14:13 07/21/17 11:11 Internal Medicine: Result - Labs CBC & Chem 7: 07/21/17 05:35 07/21/17 05:35 Labs: Short CBC 07/21/17 Range/Units 05:35 WBC 8.5 (4.3-11.1) K/mcL Hgb 7.8 L (12.9-16.9) g/dL Hct 26.5 L (37.5-50.1) % Plt Count 253 (140-400) K/mcL Neutrophils # 6.0 (1.6-8.9) K/mcL BMP 07/21/17 05:35 Sodium 138 Potassium 3.2 L Chloride 105 Carbon Dioxide 29 BUN 14 Creatinine 0.49 L Glucose 143 H Calcium 7.8 L Liver Function 07/21/17 Range/Units 05:35 Total Bilirubin 0.7 (0.3-1.0) mg/dL AST 21 (13-39) Units/L ALT 16 (7-52) Units/L Alkaline Phosphatase 73 (34-104) Units/L Albumin 2.5 L (3.5-5.7) g/dL Urine 07/21/17 Range/Units 15:38 Urine Color Yellow (Yellow) Urine Clarity Clear (Clear) Urine pH 6.5 (5.0-8.0) pH Units Ur Specific Guys 1.012 (1.010-1.025) Urine Protein Negative (Neg-Trace) mg/dL Urine Glucose (UA) Normal (Normal) mg/dL - ABG Interpretation ABG results: PT/INR, D-dimer PT 21.4 Seconds (9.4-12.1) H D 07/19/17 17:10 - Attending Attestation I examined this patient and my medical decision-making was reviewed with the Resident Physician on 07/21/17. I agree with the documented findings, disposition and treatment plan as described except to the extent set forth below. Mr Yeung is currently admitted for acute bowel obstruction s/p resection. He is in rapid a fib and having difficulty breathing at times. He remains moderate to high risk due to potential for worsening clinical status. Mr Yeung is dyspneic today. His heart rate has been elevated. No fever or chills. No CP. Not eating much Exam alert Moderate resp distress Mucus membranes dry Heart tachy and irreg Lungs with some rhonchi Abd soft I/P 1. Rapid a fib 2. Urinary retention - williamson replaced Further diagnoses and plan as above
[2017-07-21] MEDS ORDERED: *HR* Metoprolol 5 MG/5 ML VIAL IVP PRN (14:51)
[2017-07-21] MEDS: Leptospermum Honey Paste 44 ML TUBE TP SCH (15:29)
[2017-07-21] MEDS: Silvasorb 44.4 ML TUBE TP SCH (15:31)
[2017-07-21] MEDS ORDERED: Lidocaine Jelly 11 ml Syringe MM ONE (16:14)
[2017-07-21 16:21] LABS: Bilirubin,Urine Negative (Negative); Blood,Urine Negative (Negative); Clarity,Urine Clear (Clear); Color,Urine Yellow (Yellow); Glucose,Urine (UA) Normal (Normal); Ketones,Urine Negative (Negative); Leukocyte Esterase,Urine Negative (Negative); Nitrite,Urine Negative (Negative); PH,Urine 6.5 pH Units (5.0-8.0); Protein,Urine Negative (Neg-Trace); Specific Gravity,Urine 1.012 (1.010-1.025); Urobilinogen,Urine Normal (Normal)
[2017-07-21] MEDS ORDERED: Clinimix E 5%-15% SOLUTION 2,000 ML with MVI, adult with vitamin K 10 ML IVC SCH (17:00)
[2017-07-21] MEDS ORDERED: 0.9 % Sodium Chloride 250 ML ONE (18:05)
[2017-07-21] MEDS: OXYCODONE Oral CONC 10 MG/0.5 ML ORAL.SYG SL PRN (18:12)
[2017-07-21] MEDS: Ondansetron 4 MG/2 ML VIAL IVP PRN (18:14)
[2017-07-22] MEDS: Leptospermum Honey Paste 44 ML TUBE TP SCH ×3 (00:10→21:43)
[2017-07-22] MEDS: Insulin LISPRO 300 UNITS/3 ML VIAL SQ SCH ×4 (00:10→17:36)
[2017-07-22] MEDS: *HR* LORazepam 2 MG/ML VIAL IVP SCH ×3 (05:15→21:42)
[2017-07-22 05:49] LABS: Basophils % 0.3 %; Eosinophils # 0.1 K/mcL (0.0-0.6); Eosinophils % 0.5 %; Hematocrit 29.3 % (37.5-50.1); Hemoglobin 8.9 g/dL (12.9-16.9); Immature Granulocytes % 1.2 % (0-4); Lymphocytes # 1.4 K/mcL (0.6-4.6); Lymphocytes % 10.9 %; Mean Corpuscular HGB Conc 30.4 g/dL (31.6-35.5); Mean Corpuscular Hemoglobin 24.4 pg (28.0-33.3); Mean Corpuscular Volume 80.3 fL (83.0-100.0); Mean Platelet Volume 10.8 fL (9.4-12.4); Monocytes # 1.4 K/mcL (0.0-1.3); Monocytes % 10.3 %; Neutrophils # 10.1 K/mcL (1.6-8.9); Nucleated Red Blood Cells 0.2 /100 WBC (0); Platelet Count 242 K/mcL (140-400); Red Blood Count 3.65 M/mcL (4.19-5.50); Red Cell Distribution Width 21.5 % (11.5-14.5); Segmented Neutrophils % 76.8 %
[2017-07-22 06:18] LABS: Alanine Aminotransferase 16 Units/L (7-52); Albumin 2.6 g/dL (3.5-5.7); Alkaline Phosphatase 79 Units/L (34-104); Aspartate Amino Transferase 20 Units/L (13-39); BUN/Creatinine Ratio 33 (6-26); Blood Urea Nitrogen 18 mg/dL (8-23); Carbon Dioxide 29 mEq/L (23-29); Chloride 103 mEq/L (98-107); Globulin 2.7 g/dL (2.4-3.5); Glucose 104 mg/dL (70-105); Magnesium 1.8 mg/dL (1.6-2.6); Osmolality,Calculated 284 (280-300); Phosphorous 2.8 mg/dL (2.7-4.5); Potassium 3.8 mEq/L (3.5-5.1); Sodium 136 mEq/L (136-145); Total Protein 5.3 g/dL (6.4-8.9); eGFR For African Americans > 60 (> 60); eGFR For Non-African Americans > 60 (> 60)
[2017-07-22] MEDS: Ipratropium/Albuterol Neb 3 ML IH PRN ×3 (07:59→19:56)
[2017-07-22] MEDS: Budesonide/Formoterol 160/4.5 MDI IH SCH ×2 (08:00→19:56)
[2017-07-22] MEDS: Pantoprazole 40 MG VIAL IVP SCH ×2 (08:29→21:42)
[2017-07-22] MEDS: Potassium Chloride Elixir 20 MEQ/15 ML UDC PO SCH (08:29)
[2017-07-22] MEDS: Aspirin Enteric Coated 81 MG Tablet PO SCH (08:29)
[2017-07-22] MEDS: Artificial Tears SOLN 15 ML BOTTLE BOTH EYES SCH ×4 (08:30→21:43)
[2017-07-22] MEDS: Silvasorb 44.4 ML TUBE TP SCH (08:30)
--- NOTE | 2017-07-22 08:41 | General Surgery Progress Note ---
<Tara Marti H - Last Filed: 07/22/17 09:33> Date of Encounter: 07/22/17 Time of Encounter: 08:38 - Assessment and Plan (1) Incisional hernia of anterior abdominal wall with obstruction Current Visit: Yes Status: Acute POD #9 #1 repair of incisional hernia #2 small bowel resection with Dr. Swanson -Patient with flatus, good bowel sounds. Benign abdominal exam without nausea or vomitting. -Continue incentive spirometery q1hr, pain control, ambulation (PT/OT following) , PPI, stool softeners. -Tolerating clear liquids well. -No advancement of diet today. Will maintain clear liquids today. -No need for EGD. NG tube was free from any signs of bleeding prior to removal. Hemolobin stable, anticoagulation per primary team. Subjective Patient reports: no new complaints, pain is less, tolerating liquids well ( Patient resting comfortably this morning.), voiding w/o difficulty, flatus, no bowel movement, afebrile Objective Vital Signs - Last 8 Hours Temp Pulse Resp BP Pulse Ox 07/22/17 07:11 97.7 F 90 16 114/71 97 07/22/17 04:10 98.6 F 96 16 114/74 94 07/22/17 03:22 18 98 Intake and Output 07/21/17 07/22/17 07/22/17 23:59 07:59 15:59 Intake Total 350 / 350 Output Total 1200 / 1200 300 / 300 Balance -850 / -850 -300 / -300 Intake: Blood Product 350 / 350 Rbcs Leuko Poor As-1 Unit 350 / 350 [id number] Output: Catheter 1200 / 1200 300 / 300 Other: Weight 73.1 kg Blood Glucose* 142 122 Patient Weight 07/22/17 23:59 Weight 73.1 kg - General physical appearance well developed, well nourished, no distress, no pain - Eyes PERRL, normal ocular movement - ENT dry mucosa - Respiratory normal expansion, normal respiratory effort, other (mild crackles bilateral bases, mild wheezing bilaterally) - Cardiovascular Cardiovascular exam: Present: RRR. Absent: murmurs, rubs, gallop - Abdomen Abdomen: Present: bowel sounds present, soft, non tender. Absent: distended, tender Hernia: none Additional Comments: s/p incisional hernia repair. Wound clean, dry, and intact. - Incision Incision: Present: clean and dry, intact - Genitourinary testicles present, other (Scrotum edematous) - Integumentary no rash - Neurologic CN 2-12 grossly intact - Psychiatric oriented to time, oriented to person, oriented to place, speech is normal - Labs 07/22/17 05:15 07/22/17 05:15 Diabetes panel 07/22/17 Range/Units 05:15 Sodium 136 (136-145) mEq/L Potassium 3.8 (3.5-5.1) mEq/L Chloride 103 (98-107) mEq/L Carbon Dioxide 29 (23-29) mEq/L BUN 18 (8-23) mg/dL Creatinine 0.54 L (0.70-1.30) mg/dL Glucose 104 (70-105) mg/dL Calcium 8.0 L (8.6-10.3) mg/dL AST 20 (13-39) Units/L ALT 16 (7-52) Units/L Alkaline Phosphatase 79 (34-104) Units/L Albumin 2.6 L (3.5-5.7) g/dL Calcium panel 07/22/17 Range/Units 05:15 Calcium 8.0 L (8.6-10.3) mg/dL Phosphorus 2.8 (2.7-4.5) mg/dL Albumin 2.6 L (3.5-5.7) g/dL Pituitary panel 07/22/17 Range/Units 05:15 Sodium 136 (136-145) mEq/L Potassium 3.8 (3.5-5.1) mEq/L Chloride 103 (98-107) mEq/L Carbon Dioxide 29 (23-29) mEq/L BUN 18 (8-23) mg/dL Creatinine 0.54 L (0.70-1.30) mg/dL Glucose 104 (70-105) mg/dL Calcium 8.0 L (8.6-10.3) mg/dL Adrenal panel 07/22/17 Range/Units 05:15 Sodium 136 (136-145) mEq/L Potassium 3.8 (3.5-5.1) mEq/L Chloride 103 (98-107) mEq/L Carbon Dioxide 29 (23-29) mEq/L BUN 18 (8-23) mg/dL Creatinine 0.54 L (0.70-1.30) mg/dL Glucose 104 (70-105) mg/dL Calcium 8.0 L (8.6-10.3) mg/dL Total Bilirubin 1.0 (0.3-1.0) mg/dL AST 20 (13-39) Units/L ALT 16 (7-52) Units/L Alkaline Phosphatase 79 (34-104) Units/L Albumin 2.6 L (3.5-5.7) g/dL - VTE Reasons for not Prescribing Prophylaxis: Not indicated-Anticoagulated or INR therapeutic Documentation of Mechanical Device: Intermittent pneumatic compression device Consult Discharge Plan - Plan Referrals: Dane Justin MD [Primary Care Provider] - <Dane Swanson - Last Filed: 07/23/17 14:17> Date of Encounter: 07/22/17 - Assessment and Plan (1) Anemia Current Visit: Yes Status: Acute Qualifiers: Anemia type: other cause Other causes of anemia: acute posthemorrhagic Qualified Code(s): D62 - Acute posthemorrhagic anemia Objective Vital Signs - Last 8 Hours Temp Pulse Resp BP Pulse Ox 07/23/17 14:05 16 97 07/23/17 11:04 98.6 F 110 19 124/81 97 07/23/17 10:33 18 97 07/23/17 06:57 18 07/23/17 06:52 98.1 F 105 111/89 94 Intake and Output 07/22/17 07/23/17 07/23/17 23:59 07:59 15:59 Intake Total 590 / 590 100 / 100 120 / 120 Output Total 500 / 500 150 / 150 Balance 590 / 590 -400 / -400 -30 / -30 Intake: IV Fluids 350 / 350 100 / 100 Zosyn 3.375 GM In 0.9 % Sodium 100 / 100 100 / 100 Chloride 100 ML @ 25 mls/hr IVPB Q8HR [facility] Rx#:[id number] Vancocin 1,000 MG In Dextrose 5 250 / 250 % 250 ML @ 167 mls/hr IVPB Q12H [facility] Rx#:[id number] Oral 240 / 240 120 / 120 Output: Catheter 500 / 500 150 / 150 Other: Meal Dinner Lunch Percent of Meal Consumed 0% Weight 74.1 kg Blood Glucose* 123 127 144 Patient Weight 07/23/17 23:59 Weight 74.1 kg - Labs 07/23/17 02:16 07/23/17 02:16 Diabetes panel 07/23/17 Range/Units 02:16 Sodium 134 L (136-145) mEq/L Potassium 3.9 (3.5-5.1) mEq/L Chloride 99 (98-107) mEq/L Carbon Dioxide 29 (23-29) mEq/L BUN 20 (8-23) mg/dL Creatinine 0.65 L (0.70-1.30) mg/dL Glucose 102 (70-105) mg/dL Calcium 8.1 L (8.6-10.3) mg/dL AST 22 (13-39) Units/L ALT 17 (7-52) Units/L Alkaline Phosphatase 86 (34-104) Units/L Albumin 2.6 L (3.5-5.7) g/dL Calcium panel 07/23/17 07/23/17 Range/Units 02:16 02:16 Calcium 8.1 L (8.6-10.3) mg/dL Phosphorus 2.9 (2.7-4.5) mg/dL Albumin 2.6 L (3.5-5.7) g/dL Pituitary panel 07/23/17 Range/Units 02:16 Sodium 134 L (136-145) mEq/L Potassium 3.9 (3.5-5.1) mEq/L Chloride 99 (98-107) mEq/L Carbon Dioxide 29 (23-29) mEq/L BUN 20 (8-23) mg/dL Creatinine 0.65 L (0.70-1.30) mg/dL Glucose 102 (70-105) mg/dL Calcium 8.1 L (8.6-10.3) mg/dL Adrenal panel 07/23/17 07/23/17 Range/Units 02:16 08:32 Sodium 134 L (136-145) mEq/L Potassium 3.9 (3.5-5.1) mEq/L Chloride 99 (98-107) mEq/L Carbon Dioxide 29 (23-29) mEq/L BUN 20 (8-23) mg/dL Creatinine 0.65 L (0.70-1.30) mg/dL Glucose 102 (70-105) mg/dL Calcium 8.1 L (8.6-10.3) mg/dL Total Bilirubin 1.8 H 2.2 H (0.3-1.0) mg/dL AST 22 (13-39) Units/L ALT 17 (7-52) Units/L Alkaline Phosphatase 86 (34-104) Units/L Albumin 2.6 L (3.5-5.7) g/dL - Attending Attestation I examined this patient and my medical decision-making was reviewed with the Resident Physician. I agree with the documented findings, disposition and treatment plan as described except to the extent set forth below. The patient seen and evaluated on morning rounds with rest and the information is discussed and shared with the clinical nurse practitioner. The patient now has his nasogastric tube removed and started on diet. He is making slow progress from small bowel necrosis and resection. Dane Swanson MD FACS
[2017-07-22] MEDS ORDERED: Furosemide 40 MG/4 ML VIAL IVP ONE (08:45)
--- NOTE | 2017-07-22 10:11 | Internal Med Progress Note ---
<Roland Cadena - Last Filed: 07/22/17 15:39> Date of Encounter: 07/22/17 Time of Encounter: 10:08 - Assessment and plan (1) GI bleed Current Visit: Yes Status: Acute Assessment and plan: Patient is on Plavix and ASA due to recent stent placement, requiring dual antiplatelet therapy We will continue to monitor the patients hemoglobin and hematocrit Hemoglobin currently stable at 8.9 colonoscopy and endoscopy recommended once patient is stable and able to have the procedure completed. Qualifiers: GI bleed type/associated pathology: gastritis Gastritis type: acute gastritis Qualified Code(s): K29.01 - Acute gastritis with bleeding (2) Acute blood loss anemia Current Visit: Yes Status: Acute Assessment and plan: Patient has a GI bleed anemia likely secondary to blood loss. Patient requires dual antiplatelet therapy due to the patient having a recent stent placement. Patient's hemoglobin is currently stable at 8.9. We will continue to monitor the patients hemoglobin Recommended that he have an EGD and colonoscopy once patient is stable and appropriate to have this procedure completed. (3) Pneumonia Current Visit: Yes Status: Acute Assessment and plan: Due to previous chest x-ray being questionable for possible pneumonia and the patient now developing a white count and so being short of breath we will start the patient on antibiotics to cover for hospital-acquired pneumonia as well as possible aspiration. Patient will be started on vancomycin and Zosyn at this time. Qualifiers: Pneumonia type: due to unspecified organism Laterality: unspecified laterality Lung location: unspecified part of lung Qualified Code(s): J18.9 - Pneumonia, unspecified organism (4) CAD (coronary artery disease) Current Visit: Yes Status: Chronic Assessment and plan: Due to the patient having a recent stent placement the patient needs to be on dual antiplatelet therapy. We will continue with the patient's Plavix and aspirin Continue cardiac monitoring Qualifiers: Coronary Disease-Associated Artery/Lesion type: rampart artery [place] vs. transplanted heart: rampart heart Associated angina: without angina Qualified Code(s): I25.10 - Atherosclerotic heart disease of rampart coronary artery without angina pectoris (5) Status post small bowel resection Current Visit: Yes Status: Acute Assessment and plan: Patient is postoperative for a 10 cm small bowel resection and incisional hernia repair. Patient is being followed along by surgery. Patient is still receiving TPN. Per surgery note we will continue with clear liquid diet at this time. . (6) PAF (paroxysmal atrial fibrillation) Current Visit: Yes Status: Chronic Assessment and plan: Patient has a history of atrial fibrillation. He has been having some rapid ventricular response. Patient has been started on diltiazem drip for rate control. Anticoagulation will be held due to possible GI bleed. Patient is currently on Plavix and aspirin. Continue cardiac monitoring. (7) Systolic heart failure Current Visit: Yes Status: Chronic Assessment and plan: Patient has a known history of congestive heart failure. Last echocardiogram showed LVEF 35-40%. Moderate global and segmental left ventricular systolic dysfunction. Severe pulmonary hypertension. No significant valvular dysfunction. Patient has received Lasix today. Qualifiers: Heart failure chronicity: acute on chronic Qualified Code(s): I50.23 - Acute on chronic systolic (congestive) heart failure (8) Hypertension Current Visit: No Status: Chronic Assessment and plan: Patient's blood pressure is currently normotensive. No further antihypertensive medication is required at this time. Qualifiers: Hypertension type: essential hypertension Qualified Code(s): I10 - Essential (primary) hypertension (9) Sacral decubitus ulcer, stage II Current Visit: Yes Status: Acute Assessment and plan: Wound care has been consulted on this patient (10) DVT prophylaxis Current Visit: No Status: Acute Assessment and plan: Patient has SCDs in place. Patient is also on Plavix and aspirin for dual antiplatelet therapy for recent cardiac stent. - Subjective Interval history: Mr. Yeung states that he is feeling pretty good today. Today's having a little bit harder time breathing. States that he normally wears 3 L of oxygen at home which she is currently on here in the hospital. He also states that he has been having some anxiety associated with his shortness of breath. Patient states that he has not been out of bed a few days. Patient denies any chest pain at this time. Patient has no other complaints other than his increased shortness of breath. - Constitutional Vitals: Temp Pulse Resp BP Pulse Ox 97.7 F 90 16 114/71 97 07/22/17 07:11 07/22/17 07:11 07/22/17 07:11 07/22/17 07:11 07/22/17 07:11 General appearance: Present: mild distress, A&O X 3 - Head Head exam: Present: atraumatic, normocephalic - Neck Neck exam general surgery: Present: full ROM, normal inspection, trachea midline - Respiratory Respiratory exam: Present: decreased breath sounds, rhonchi - Cardiovascular Cardiovascular exam: Present: +S1, +S2, tachycardia - GI/Abdominal GI/Abdominal exam: Present: diminished bowel sounds. Absent: tenderness Additional comments: Patient has surgical bandage from previous operation of hernia repair and small bowel resection. Dressing appears to be clean and dry. - Extremities Exam Extremities exam: Present: pedal edema Additional comments: Patient has SCDs in place for DVT prophylaxis - Neurological Exam Neurological exam: Present: CN II-XII intact, oriented X3, no focal deficits. Absent: facial droop, speech deficit - Psychiatric Psychiatric exam: Present: anxious (Mildly anxious), normal affect - Skin Additional comments: Patient has a known sacral decubitus. Remainder of skin exam is warm, dry and intact Internal Medicine: Result - Labs CBC & Chem 7: 07/22/17 05:15 07/22/17 05:15 Labs: Short CBC 07/22/17 Range/Units 05:15 WBC 13.2 H D (4.3-11.1) K/mcL Hgb 8.9 L (12.9-16.9) g/dL Hct 29.3 L (37.5-50.1) % Plt Count 242 (140-400) K/mcL Neutrophils # 10.1 H (1.6-8.9) K/mcL BMP 07/22/17 05:15 Sodium 136 Potassium 3.8 Chloride 103 Carbon Dioxide 29 BUN 18 Creatinine 0.54 L Glucose 104 Calcium 8.0 L Liver Function 07/22/17 Range/Units 05:15 Total Bilirubin 1.0 (0.3-1.0) mg/dL AST 20 (13-39) Units/L ALT 16 (7-52) Units/L Alkaline Phosphatase 79 (34-104) Units/L Albumin 2.6 L (3.5-5.7) g/dL Urine 07/21/17 Range/Units 15:38 Urine Color Yellow (Yellow) Urine Clarity Clear (Clear) Urine pH 6.5 (5.0-8.0) pH Units Ur Specific [place] 1.012 (1.010-1.025) Urine Protein Negative (Neg-Trace) mg/dL Urine Glucose (UA) Normal (Normal) mg/dL - ABG Interpretation ABG results: PT/INR, D-dimer PT 21.4 Seconds (9.4-12.1) H D 07/19/17 17:10 - VTE Reasons for not Prescribing Prophylaxis: Not indicated-Anticoagulated or INR therapeutic Documentation of Mechanical Device: Intermittent pneumatic compression device Consult Discharge Plan - Plan Referrals: Dane Justin MD [Primary Care Provider] - <Hemal Mcdonald - Last Filed: 07/22/17 18:17> Date of Encounter: 07/22/17 - Assessment and plan (1) Pneumonia Current Visit: Yes Status: Acute Assessment and plan: Start abx. Qualifiers: Pneumonia type: due to other aerobic Gram-negative bacteria Laterality: bilateral Lung location: lower lobe of lung Qualified Code(s): J15.6 - Pneumonia due to other Gram-negative bacteria (2) Pulmonary edema Current Visit: Yes Status: Acute Qualifiers: Chronicity: acute Qualified Code(s): J81.0 - Acute pulmonary edema (3) PAF (paroxysmal atrial fibrillation) Current Visit: Yes Status: Chronic (4) Incisional hernia of anterior abdominal wall with obstruction Current Visit: Yes Status: Acute (5) CAD (coronary artery disease) Current Visit: Yes Status: Chronic Qualifiers: Coronary Disease-Associated Artery/Lesion type: rampart artery [place] vs. transplanted heart: rampart heart Associated angina: without angina Qualified Code(s): I25.10 - Atherosclerotic heart disease of rampart coronary artery without angina pectoris (6) Status post small bowel resection Current Visit: Yes Status: Acute (7) Anemia Current Visit: Yes Status: Acute Qualifiers: Anemia type: other cause Other causes of anemia: acute posthemorrhagic Qualified Code(s): D62 - Acute posthemorrhagic anemia (8) GI bleed Current Visit: Yes Status: Acute Qualifiers: GI bleed type/associated pathology: gastritis Gastritis type: acute gastritis Qualified Code(s): K29.01 - Acute gastritis with bleeding (9) Systolic heart failure Current Visit: Yes Status: Chronic Qualifiers: Heart failure chronicity: acute on chronic Qualified Code(s): I50.23 - Acute on chronic systolic (congestive) heart failure (10) Hypertension Current Visit: No Status: Chronic Qualifiers: Hypertension type: essential hypertension Qualified Code(s): I10 - Essential (primary) hypertension (11) Sacral decubitus ulcer, stage II Current Visit: Yes Status: Acute (12) Urinary retention due to benign prostatic hyperplasia Current Visit: Yes Status: Suspected - Constitutional Vitals: Temp Pulse Resp BP Pulse Ox 97.9 F 99 20 115/78 98 07/22/17 15:31 07/22/17 15:31 07/22/17 16:09 07/22/17 15:31 07/22/17 16:09 Internal Medicine: Result - Labs CBC & Chem 7: 07/22/17 05:15 07/22/17 05:15 Labs: Short CBC 07/22/17 Range/Units 05:15 WBC 13.2 H D (4.3-11.1) K/mcL Hgb 8.9 L (12.9-16.9) g/dL Hct 29.3 L (37.5-50.1) % Plt Count 242 (140-400) K/mcL Neutrophils # 10.1 H (1.6-8.9) K/mcL BMP 07/22/17 05:15 Sodium 136 Potassium 3.8 Chloride 103 Carbon Dioxide 29 BUN 18 Creatinine 0.54 L Glucose 104 Calcium 8.0 L Liver Function 07/22/17 Range/Units 05:15 Total Bilirubin 1.0 (0.3-1.0) mg/dL AST 20 (13-39) Units/L ALT 16 (7-52) Units/L Alkaline Phosphatase 79 (34-104) Units/L Albumin 2.6 L (3.5-5.7) g/dL - ABG Interpretation ABG results: PT/INR, D-dimer PT 21.4 Seconds (9.4-12.1) H D 07/19/17 17:10 - Attending Attestation I examined this patient and my medical decision-making was reviewed with the Resident Physician on 07/22/17. I agree with the documented findings, disposition and treatment plan as described except to the extent set forth below. Mr Yeung is currently admitted for bowel obstruction s/p laparotomy. He is now in rapid a flutter. He remains moderate to high risk due to potential for worsening clinical status. Mr Yeung was more dyspneic this AM. He has received more Lasix and TPN rate has changed. WBC has increased as well. Ta replaced last night due to retention. No fever. Exam alert Mod resp distress Heart irreg and rapid Lungs with rhonchi Edema present I/P 1. Pulmonary edema - diuresis 2. Rapid a flutter 3. Urinary retention CXR has questioned pneumona. WBC up today - abx started. Further diagnoses and plan as above.
[2017-07-22] MEDS ORDERED: Vancomycin 1,000 MG in D5% in Water 250 ML IVPB SCH (14:00)
[2017-07-22] MEDS: Vancomycin 1,000 MG in D5% in Water 250 ML IVPB SCH (14:53)
[2017-07-22] MEDS ORDERED: Clinimix E 5%-20% SOLUTION 2,000 ML with MVI, adult with vitamin K 10 ML IVC SCH (17:00)
[2017-07-22] MEDS: OXYCODONE Oral CONC 10 MG/0.5 ML ORAL.SYG SL PRN (21:42)
[2017-07-23] MEDS: Insulin LISPRO 300 UNITS/3 ML VIAL SQ SCH ×4 (00:28→17:43)
[2017-07-23] MEDS: OXYCODONE Oral CONC 10 MG/0.5 ML ORAL.SYG SL PRN ×3 (01:59→22:19)
[2017-07-23] MEDS: Vancomycin 1,000 MG in D5% in Water 250 ML IVPB SCH ×2 (02:00→14:42)
[2017-07-23 02:48] LABS: Basophils % 0.2 %; Eosinophils % 0.2 %; Hematocrit 30.7 % (37.5-50.1); Hemoglobin 9.2 g/dL (12.9-16.9); Immature Granulocytes % 1.3 % (0-4); Lymphocytes # 1.7 K/mcL (0.6-4.6); Lymphocytes % 9.6 %; Mean Corpuscular Hemoglobin 24.2 pg (28.0-33.3); Mean Corpuscular Volume 80.8 fL (83.0-100.0); Mean Platelet Volume 11.8 fL (9.4-12.4); Monocytes # 1.8 K/mcL (0.0-1.3); Monocytes % 10.7 %; Neutrophils # 13.4 K/mcL (1.6-8.9); Nucleated Red Blood Cells 0.2 /100 WBC (0); Platelet Count 260 K/mcL (140-400); Red Cell Distribution Width 22.4 % (11.5-14.5)
[2017-07-23 03:05] LABS: Magnesium 1.8 mg/dL (1.6-2.6); Phosphorous 2.9 mg/dL (2.7-4.5)
[2017-07-23 03:06] LABS: Alanine Aminotransferase 17 Units/L (7-52); Albumin 2.6 g/dL (3.5-5.7); Albumin/Globulin Ratio 0.9 (1.1-2.2); Alkaline Phosphatase 86 Units/L (34-104); Aspartate Amino Transferase 22 Units/L (13-39); BUN/Creatinine Ratio 31 (6-26); Bilirubin,Total 1.8 mg/dL (0.3-1.0); Blood Urea Nitrogen 20 mg/dL (8-23); Calcium 8.1 mg/dL (8.6-10.3); Carbon Dioxide 29 mEq/L (23-29); Chloride 99 mEq/L (98-107); Globulin 2.9 g/dL (2.4-3.5); Glucose 102 mg/dL (70-105); Osmolality,Calculated 281 (280-300); Potassium 3.9 mEq/L (3.5-5.1); Sodium 134 mEq/L (136-145); Total Protein 5.5 g/dL (6.4-8.9); eGFR For African Americans > 60 (> 60); eGFR For Non-African Americans > 60 (> 60)
[2017-07-23] MEDS: *HR* LORazepam 2 MG/ML VIAL IVP SCH ×3 (06:49→22:18)
[2017-07-23] MEDS: Leptospermum Honey Paste 44 ML TUBE TP SCH ×2 (06:50→22:18)
[2017-07-23] MEDS ORDERED: Aminoglycoside Consult 1 EACH MC ONE (08:35)
[2017-07-23] MEDS: Pantoprazole 40 MG VIAL IVP SCH ×2 (08:55→22:18)
[2017-07-23] MEDS: Aspirin Enteric Coated 81 MG Tablet PO SCH (08:55)
[2017-07-23 08:58] LABS: Bilirubin,Indirect 1.2 mg/dL (0.0-1.2); Bilirubin,Total 2.2 mg/dL (0.3-1.0)
[2017-07-23] MEDS: Potassium Chloride Elixir 20 MEQ/15 ML UDC PO SCH (09:04)
--- NOTE | 2017-07-23 10:04 | General Surgery Progress Note ---
<Tara Marti - Last Filed: 07/23/17 10:01> Date of Encounter: 07/23/17 Time of Encounter: 10:01 - Assessment and Plan (1) Incisional hernia of anterior abdominal wall with obstruction Current Visit: Yes Status: Acute POD #10 #1 repair of incisional hernia #[address] small bowel resection with Dr[address] Swanson -Patient with flatus, good bowel sounds. Benign abdominal exam without nausea or vomitting. -Continue incentive spirometery q1hr, pain control, ambulation (PT/OT following) , PPI, stool softeners-added docusate sodium in addition to MiraLAX. -Advancing diet to full liquids with high protein ensure. -Patient with mild conjugated hyperbilirubinemia. Suspect this is secondary to gallbladder sludge secondary to TPN. Recommend stopping lipids and decreasing TPN to 50mls or stopping. -Surgical incision with mild erythema at the inferior aspect. Removal of rose with serous fluid draining. Unlikely infection or source of elevation in WBC overnight (17.1 up from 13.2 yesterday). Wound was packed with iodoform gauze. Wound care consult placed. -No need for endoscopy. NG tube was free from any signs of bleeding prior to removal. Hemolobin stable, continue anticoagulation per primary team. -Add scrotal sling for scrotal edema and patient comfort. -Will continue to follow along with patient. Subjective Patient reports: no new complaints, pain is less, tolerating liquids well, voiding w/o difficulty, flatus, no bowel movement, afebrile Objective Vital Signs - Last 8 Hours Temp Pulse Resp BP Pulse Ox 07/23/17 06:57 18 07/23/17 06:52 98.1 F 105 111/89 94 07/23/17 05:00 98.0 F 93 16 112/66 94 Intake and Output 07/22/17 07/23/17 07/23/17 23:59 07:59 15:59 Intake Total 590 / 590 100 / 100 120 / 120 Output Total 500 / 500 Balance 590 / 590 -400 / -400 120 / 120 Intake: IV Fluids 350 / 350 100 / 100 Zosyn 3.375 GM In 0.9 % Sodium 100 / 100 100 / 100 Chloride 100 ML @ 25 mls/hr IVPB Q8HR [facility] Rx#:[id number] Vancocin 1,000 MG In Dextrose 5 250 / 250 % 250 ML @ 167 mls/hr IVPB Q12H [facility] Rx#:[id number] Oral 240 / 240 120 / 120 Output: Catheter 500 / 500 Other: Meal Dinner Breakfast Percent of Meal Consumed 0% Weight 74.1 kg Blood Glucose* 123 127 Patient Weight 07/23/17 23:59 Weight 74.1 kg - General physical appearance well developed, no distress, no pain - Eyes PERRL, normal ocular movement - ENT dry mucosa, atraumatic, normocephalic - Respiratory normal expansion, normal respiratory effort, clear to percussion - Cardiovascular Cardiovascular exam: Present: RRR, no murmurs/rubs/gallops - Abdomen Abdomen: Present: bowel sounds present, soft. Absent: distended, rigid Hernia: none - Incision Incision: Present: clean and dry, intact (mild erythema around the inferior aspect of incision. Some serous drainage after removing inferior 3 rose. No purulence.) - Genitourinary other (scrotal edema) - Psychiatric oriented to time, oriented to person, oriented to place, speech is normal, memory intact - Labs 07/23/17 02:16 07/23/17 02:16 Diabetes panel 07/23/17 Range/Units 02:16 Sodium 134 L (136-145) mEq/L Potassium 3.9 (3.5-5.1) mEq/L Chloride 99 (98-107) mEq/L Carbon Dioxide 29 (23-29) mEq/L BUN 20 (8-23) mg/dL Creatinine 0.65 L (0.70-1.30) mg/dL Glucose 102 (70-105) mg/dL Calcium 8.1 L (8.6-10.3) mg/dL AST 22 (13-39) Units/L ALT 17 (7-52) Units/L Alkaline Phosphatase 86 (34-104) Units/L Albumin 2.6 L (3.5-5.7) g/dL Calcium panel 07/23/17 07/23/17 Range/Units 02:16 02:16 Calcium 8.1 L (8.6-10.3) mg/dL Phosphorus 2.9 (2.7-4.5) mg/dL Albumin 2.6 L (3.5-5.7) g/dL Pituitary panel 07/23/17 Range/Units 02:16 Sodium 134 L (136-145) mEq/L Potassium 3.9 (3.5-5.1) mEq/L Chloride 99 (98-107) mEq/L Carbon Dioxide 29 (23-29) mEq/L BUN 20 (8-23) mg/dL Creatinine 0.65 L (0.70-1.30) mg/dL Glucose 102 (70-105) mg/dL Calcium 8.1 L (8.6-10.3) mg/dL Adrenal panel 07/23/17 07/23/17 Range/Units 02:16 08:32 Sodium 134 L (136-145) mEq/L Potassium 3.9 (3.5-5.1) mEq/L Chloride 99 (98-107) mEq/L Carbon Dioxide 29 (23-29) mEq/L BUN 20 (8-23) mg/dL Creatinine 0.65 L (0.70-1.30) mg/dL Glucose 102 (70-105) mg/dL Calcium 8.1 L (8.6-10.3) mg/dL Total Bilirubin 1.8 H 2.2 H (0.3-1.0) mg/dL AST 22 (13-39) Units/L ALT 17 (7-52) Units/L Alkaline Phosphatase 86 (34-104) Units/L Albumin 2.6 L (3.5-5.7) g/dL - VTE Reasons for not Prescribing Prophylaxis: Not indicated-Anticoagulated or INR therapeutic Documentation of Mechanical Device: Intermittent pneumatic compression device Consult Discharge Plan - Plan Referrals: Dane Justin MD [Primary Care Provider] - <Dane Swanson - Last Filed: 07/23/17 14:33> Date of Encounter: 07/23/17 - Assessment and Plan (1) Anemia Current Visit: Yes Status: Acute Qualifiers: Qualified Code(s): D62 - Acute posthemorrhagic anemia Objective Vital Signs - Last 8 Hours Temp Pulse Resp BP Pulse Ox 07/23/17 14:05 16 97 07/23/17 11:04 98.6 F 110 19 124/81 97 07/23/17 10:33 18 97 07/23/17 06:57 18 07/23/17 06:52 98.1 F 105 111/89 94 Intake and Output 07/22/17 07/23/17 07/23/17 23:59 07:59 15:59 Intake Total 590 / 590 100 / 100 120 / 120 Output Total 500 / 500 150 / 150 Balance 590 / 590 -400 / -400 -30 / -30 Intake: IV Fluids 350 / 350 100 / 100 Zosyn 3.375 GM In 0.9 % Sodium 100 / 100 100 / 100 Chloride 100 ML @ 25 mls/hr IVPB Q8HR [facility] Rx#:[id number] Vancocin 1,000 MG In Dextrose 5 250 / 250 % 250 ML @ 167 mls/hr IVPB Q12H [facility] Rx#:[id number] Oral 240 / 240 120 / 120 Output: Catheter 500 / 500 150 / 150 Other: Meal Dinner Lunch Percent of Meal Consumed 0% Weight 74.1 kg Blood Glucose* 123 127 144 Patient Weight 07/23/17 23:59 Weight 74.1 kg - Labs 07/23/17 02:16 07/23/17 02:16 Diabetes panel 07/23/17 Range/Units 02:16 Sodium 134 L (136-145) mEq/L Potassium 3.9 (3.5-5.1) mEq/L Chloride 99 (98-107) mEq/L Carbon Dioxide 29 (23-29) mEq/L BUN 20 (8-23) mg/dL Creatinine 0.65 L (0.70-1.30) mg/dL Glucose 102 (70-105) mg/dL Calcium 8.1 L (8.6-10.3) mg/dL AST 22 (13-39) Units/L ALT 17 (7-52) Units/L Alkaline Phosphatase 86 (34-104) Units/L Albumin 2.6 L (3.5-5.7) g/dL Calcium panel 07/23/17 07/23/17 Range/Units 02:16 02:16 Calcium 8.1 L (8.6-10.3) mg/dL Phosphorus 2.9 (2.7-4.5) mg/dL Albumin 2.6 L (3.5-5.7) g/dL Pituitary panel 07/23/17 Range/Units 02:16 Sodium 134 L (136-145) mEq/L Potassium 3.9 (3.5-5.1) mEq/L Chloride 99 (98-107) mEq/L Carbon Dioxide 29 (23-29) mEq/L BUN 20 (8-23) mg/dL Creatinine 0.65 L (0.70-1.30) mg/dL Glucose 102 (70-105) mg/dL Calcium 8.1 L (8.6-10.3) mg/dL Adrenal panel 07/23/17 07/23/17 Range/Units 02:16 08:32 Sodium 134 L (136-145) mEq/L Potassium 3.9 (3.5-5.1) mEq/L Chloride 99 (98-107) mEq/L Carbon Dioxide 29 (23-29) mEq/L BUN 20 (8-23) mg/dL Creatinine 0.65 L (0.70-1.30) mg/dL Glucose 102 (70-105) mg/dL Calcium 8.1 L (8.6-10.3) mg/dL Total Bilirubin 1.8 H 2.2 H (0.3-1.0) mg/dL AST 22 (13-39) Units/L ALT 17 (7-52) Units/L Alkaline Phosphatase 86 (34-104) Units/L Albumin 2.6 L (3.5-5.7) g/dL - Attending Attestation I examined this patient and my medical decision-making was reviewed with the Resident Physician. I agree with the documented findings, disposition and treatment plan as described except to the extent set forth below. The patient was seen and evaluated with the clinical nurse practitioner and the resident on morning rounds. His incision is somewhat erythematous. We will remove 3 rose in the base the incision. He may require packing with iodoform. This area of the incision is the area where the necrotic bowel was incarcerated. Dane Swanson MD FACS
[2017-07-23] MEDS: Budesonide/Formoterol 160/4.5 MDI IH SCH ×2 (10:33→22:21)
[2017-07-23] MEDS: Ipratropium/Albuterol Neb 3 ML IH PRN ×3 (10:34→22:21)
[2017-07-23] MEDS: Artificial Tears SOLN 15 ML BOTTLE BOTH EYES SCH ×4 (13:00→22:18)
[2017-07-23] MEDS: Silvasorb 44.4 ML TUBE TP SCH (13:01)
--- NOTE | 2017-07-23 14:28 | Internal Med Progress Note ---
<Aubree Cadenan - Last Filed: 07/23/17 16:30> Date of Encounter: 07/23/17 Time of Encounter: 14:26 - Assessment and plan (1) GI bleed Current Visit: Yes Status: Acute Assessment and plan: Patient is on Plavix and ASA due to recent stent placement, requiring dual antiplatelet therapy We will continue to monitor the patients hemoglobin and hematocrit Hemoglobin currently stable at 9.2 increased from 8.9 yesterday. Qualifiers: GI bleed type/associated pathology: gastritis Gastritis type: acute gastritis Qualified Code(s): K29.01 - Acute gastritis with bleeding (2) Acute blood loss anemia Current Visit: Yes Status: Acute Assessment and plan: Patient has a GI bleed anemia likely secondary to blood loss. Patient requires dual antiplatelet therapy Patient's hemoglobin is currently stable at 9.2. (3) Pneumonia Current Visit: Yes Status: Acute Assessment and plan: WBC 17.1 today Day 2 of antibiotics. D/C Vancomycin Continue with Zosyn CXR Pending Qualifiers: Pneumonia type: due to unspecified organism Laterality: unspecified laterality Lung location: unspecified part of lung Qualified Code(s): J18.9 - Pneumonia, unspecified organism (4) Sepsis Current Visit: No Status: Acute Assessment and plan: Patient is tachycardic and has a WBC of 17.1 Possible pneumonia Continue with zosyn Qualifiers: Sepsis type: sepsis due to unspecified organism Qualified Code(s): A41.9 - Sepsis, unspecified organism (5) CAD (coronary artery disease) Current Visit: Yes Status: Chronic Assessment and plan: Due to the patient having a recent stent placement the patient needs to be on dual antiplatelet therapy. Continue with the patient's Plavix and aspirin Qualifiers: Coronary Disease-Associated Artery/Lesion type: [place] artery [place] vs. transplanted heart: [place] heart Associated angina: without angina Qualified Code(s): I25.10 - Atherosclerotic heart disease of [place] coronary artery without angina pectoris (6) Status post small bowel resection Current Visit: Yes Status: Acute Assessment and plan: Patient is postoperative for a 10 cm small bowel resection and incisional hernia repair. Patient is being followed along by surgery. TPN will be discontinued Per surgery note we will advance to full liquid with high protein ensure. . (7) PAF (paroxysmal atrial fibrillation) Current Visit: Yes Status: Chronic Assessment and plan: Patient has a history of atrial fibrillation. He has been having some rapid ventricular response. Patient has been started on diltiazem drip for rate control. Anticoagulation will be held due to possible GI bleed. Patient is currently on Plavix and aspirin. (8) Systolic heart failure Current Visit: Yes Status: Chronic Assessment and plan: Patient has a known history of congestive heart failure. Last echocardiogram showed LVEF 35-40%. Moderate global and segmental left ventricular systolic dysfunction. Severe pulmonary hypertension. No significant valvular dysfunction. We will continue with lasix today. Qualifiers: Heart failure chronicity: acute on chronic Qualified Code(s): I50.23 - Acute on chronic systolic (congestive) heart failure (9) Leukocytosis Current Visit: Yes Status: Acute Assessment and plan: WBC of 17.1 Pneumonia Vs Intraabdominal infection due to recent abdominal surgery Will obtain a ct scan of abd and pelvis Qualifiers: Leukocytosis type: unspecified Qualified Code(s): D72.829 - Elevated white blood cell count, unspecified (10) Hyperbilirubinemia Current Visit: Yes Status: Acute Assessment and plan: Surgery is following patient. Per note they suspect this is secondary to gallbladder sludge secondary to TPN Total Bili 2.2 TPN has been D/C (11) Hypertension Current Visit: No Status: Chronic Assessment and plan: Patient's blood pressure is currently normotensive. No further antihypertensive medication is required at this time. Qualifiers: Hypertension type: essential hypertension Qualified Code(s): I10 - Essential (primary) hypertension (12) Sacral decubitus ulcer, stage II Current Visit: Yes Status: Acute Assessment and plan: Wound care has been consulted on this patient (13) DVT prophylaxis Current Visit: No Status: Acute Assessment and plan: Patient has SCDs in place. - Subjective Interval history: Mr. Yeung states that he is having a little bit harder time breathing. States that he normally wears 3 L of oxygen at home. He is currently on 3.5 L. Patient states that her shortness of breath is progressively gotten worse. Patient states that he has been drinking ensure. Patient states that he feels like he is having a hard time catching his breath and that if he lays completely flat that he is smothering. Reports that he does not lay flat at home. States that he requires a couple of pillows to prop himself up while he sleeps. - Constitutional Vitals: Temp Pulse Resp BP Pulse Ox 98.6 F 110 16 124/81 97 07/23/17 11:04 07/23/17 11:04 07/23/17 14:05 07/23/17 11:04 07/23/17 14:05 General appearance: Present: mild distress, A&O X 3 - Head Head exam: Present: atraumatic, normocephalic - Neck Neck exam general surgery: Present: full ROM, normal inspection, trachea midline - Respiratory Respiratory exam: Present: wheezes (Bilaterally) - Cardiovascular Cardiovascular exam: Present: +S1, +S2, tachycardia - GI/Abdominal GI/Abdominal exam: Present: diminished bowel sounds Additional comments: Patient has a surgical dressing on abdomen from recent abdominal surgery. Patient denies any tenderness at this time. - Extremities Exam Extremities exam: Present: pedal edema - Expanded Lower Extremities Exam Lower Leg exam: Present: swelling (2+ pitting edema in bilateral lower extremities) - Psychiatric Psychiatric exam: Present: anxious - Skin Skin exam: Present: dry, intact, warm Additional comments: Patient has a known sacral decubitus Internal Medicine: Result - Labs CBC & Chem 7: 07/23/17 02:16 07/23/17 02:16 Labs: Short CBC 07/23/17 Range/Units 02:16 WBC 17.1 H (4.3-11.1) K/mcL Hgb 9.2 L (12.9-16.9) g/dL Hct 30.7 L (37.5-50.1) % Plt Count 260 (140-400) K/mcL Neutrophils # 13.4 H (1.6-8.9) K/mcL BMP 07/23/17 02:16 Sodium 134 L Potassium 3.9 Chloride 99 Carbon Dioxide 29 BUN 20 Creatinine 0.65 L Glucose 102 Calcium 8.1 L Liver Function 07/23/17 07/23/17 Range/Units 02:16 08:32 Total Bilirubin 1.8 H 2.2 H (0.3-1.0) mg/dL Direct Bilirubin 1.0 H (0.0-0.2) mg/dL AST 22 (13-39) Units/L ALT 17 (7-52) Units/L Alkaline Phosphatase 86 (34-104) Units/L Albumin 2.6 L (3.5-5.7) g/dL - ABG Interpretation ABG results: PT/INR, D-dimer PT 21.4 Seconds (9.4-12.1) H D 07/19/17 17:10 - VTE Reasons for not Prescribing Prophylaxis: Not indicated-Anticoagulated or INR therapeutic Documentation of Mechanical Device: Intermittent pneumatic compression device Consult Discharge Plan - Plan Referrals: Justin,Dane Guzmán MD [Primary Care Provider] - <Tigre Peterson H - Last Filed: 07/23/17 16:44> Date of Encounter: 07/23/17 - Constitutional Vitals: Temp Pulse Resp BP Pulse Ox 98.3 F 140 16 112/74 98 07/23/17 15:08 07/23/17 15:08 07/23/17 14:05 07/23/17 15:08 07/23/17 15:08 Internal Medicine: Result - Labs CBC & Chem 7: 07/23/17 02:16 07/23/17 02:16 Labs: Short CBC 07/23/17 Range/Units 02:16 WBC 17.1 H (4.3-11.1) K/mcL Hgb 9.2 L (12.9-16.9) g/dL Hct 30.7 L (37.5-50.1) % Plt Count 260 (140-400) K/mcL Neutrophils # 13.4 H (1.6-8.9) K/mcL BMP 07/23/17 02:16 Sodium 134 L Potassium 3.9 Chloride 99 Carbon Dioxide 29 BUN 20 Creatinine 0.65 L Glucose 102 Calcium 8.1 L Liver Function 07/23/17 07/23/17 Range/Units 02:16 08:32 Total Bilirubin 1.8 H 2.2 H (0.3-1.0) mg/dL Direct Bilirubin 1.0 H (0.0-0.2) mg/dL AST 22 (13-39) Units/L ALT 17 (7-52) Units/L Alkaline Phosphatase 86 (34-104) Units/L Albumin 2.6 L (3.5-5.7) g/dL - ABG Interpretation ABG results: PT/INR, D-dimer PT 21.4 Seconds (9.4-12.1) H D 07/19/17 17:10 - Impressions Impressions Chest X-Ray 07/23/17 14:38 IMPRESSION: Patchy parenchymal airspace disease, slightly worse in the right lower lobe concerning for worsening pneumonia. There is slight improvement in left effusion D/ / Iraj Rodrigez MD / Iraj Rodrigez MD Interpreting Provider: Iraj Rodrigez MD - Attending Attestation A. fib with RVR possibly triggered by sepsis secondary to gram-negative pneumonia Continue Zosyn and discontinue vancomycin Order CT scan of the abdomen and pelvis: Look for possible hematoma versus abscess The patient is on a Cardizem drip, still very tachycardic, responded to metoprolol IV I examined this patient and my medical decision-making was reviewed with the Resident Physician. I agree with the documented findings, disposition and treatment plan as described except to the extent set forth below.
[2017-07-23] MEDS ORDERED: Furosemide 40 MG/4 ML VIAL IVP ONE (15:51)
[2017-07-23] MEDS ORDERED: *HR* Metoprolol 5 MG/5 ML VIAL IVP ONE (15:53)
[2017-07-24] MEDS: Insulin LISPRO 300 UNITS/3 ML VIAL SQ SCH ×5 (00:01→22:07)
[2017-07-24 02:07] LABS: Basophils % 0.2 %; Eosinophils % 0.1 %; Hematocrit 28.3 % (37.5-50.1); Hemoglobin 8.4 g/dL (12.9-16.9); Immature Granulocytes % 1.2 % (0-4); Lymphocytes # 1.8 K/mcL (0.6-4.6); Lymphocytes % 10.4 %; Mean Corpuscular HGB Conc 29.7 g/dL (31.6-35.5); Mean Corpuscular Volume 80.9 fL (83.0-100.0); Mean Platelet Volume 11.3 fL (9.4-12.4); Monocytes # 1.9 K/mcL (0.0-1.3); Monocytes % 10.9 %; Neutrophils # 13.2 K/mcL (1.6-8.9); Nucleated Red Blood Cells 0.1 /100 WBC (0); Platelet Count 250 K/mcL (140-400); Red Cell Distribution Width 22.6 % (11.5-14.5); Segmented Neutrophils % 77.2 %
[2017-07-24 02:44] LABS: Alanine Aminotransferase 20 Units/L (7-52); Albumin 2.6 g/dL (3.5-5.7); Albumin/Globulin Ratio 0.9 (1.1-2.2); Alkaline Phosphatase 90 Units/L (34-104); Aspartate Amino Transferase 27 Units/L (13-39); BUN/Creatinine Ratio 28 (6-26); Bilirubin,Total 3.1 mg/dL (0.3-1.0); Blood Urea Nitrogen 23 mg/dL (8-23); Calcium 8.3 mg/dL (8.6-10.3); Carbon Dioxide 28 mEq/L (23-29); Chloride 98 mEq/L (98-107); Globulin 2.8 g/dL (2.4-3.5); Glucose 95 mg/dL (70-105); Osmolality,Calculated 277 (280-300); Potassium 4.2 mEq/L (3.5-5.1); Sodium 132 mEq/L (136-145); Total Protein 5.4 g/dL (6.4-8.9); eGFR For African Americans > 60 (> 60); eGFR For Non-African Americans > 60 (> 60)
[2017-07-24] MEDS: *HR* LORazepam 2 MG/ML VIAL IVP SCH ×3 (06:45→22:06)
--- NOTE | 2017-07-24 08:06 | General Surgery Progress Note ---
<Tara Marti H - Last Filed: 07/24/17 08:04> Date of Encounter: 07/24/17 Time of Encounter: 08:04 - Assessment and Plan (1) Incisional hernia of anterior abdominal wall with obstruction Current Visit: Yes Status: Acute POD # 11 #1 repair of incisional hernia #2 small bowel resection with Dr. Swanson -Patient with flatus, good bowel sounds. Benign abdominal exam without nausea or vomitting. -Continue incentive spirometery q1hr, pain control, ambulation (PT/OT following) , PPI, stool docusate and MiraLAX. -Advancing to cardiac diet. -Patient with mild conjugated hyperbilirubinemia. Suspect this is secondary to biliary stasis secondary to TPN. TPN discontinued yesterday. We will continue to monitor. -Patient's white blood cell count is stable overnight at 17.1 inferior aspect of surgical incision clean with no surrounding erythema. Minimal serous drainage with iodoform packing in place. Wound care following. -Hemoglobin dropped overnight to 8.4 from 9.2 yesterday. We will continue to monitor. No need for endoscopy at this point as NG tube was free from any signs of bleeding prior to removal. Continue anticoagulation per primary team -Scrotal sling for scrotal edema and patient comfort. -Will continue to follow along with patient. Subjective Patient reports: no new complaints, feels better, pain is less, tolerating liquids well, voiding w/o difficulty, flatus, afebrile Objective Vital Signs - Last 8 Hours Temp Pulse Resp BP Pulse Ox 07/24/17 07:41 98.1 F 85 16 108/67 98 07/24/17 05:23 86 17 105/69 97 07/24/17 01:35 92 15 96/58 100 Intake and Output 07/23/17 07/24/17 07/24/17 23:59 07:59 15:59 Intake Total 100 / 100 124 / 124 Output Total 1100 / 1100 600 / 600 Balance -1000 / -1000 -476 / -476 Intake: IV Fluids 100 / 100 124 / 124 Cardizem 125 MG In 0.9 % Sodium 124 / 124 Chloride 100 ML @ 5 MG/HR 5 mls/hr IVC .Q24H [facility] Rx#: [id number] Zosyn 3.375 GM In 0.9 % Sodium 100 / 100 Chloride 100 ML @ 25 mls/hr IVPB Q8HR [facility] Rx#:[id number] Output: Catheter 1100 / 1100 600 / 600 Other: Blood Glucose* 116 105 - General physical appearance well developed, well nourished, no distress - Eyes PERRL, normal ocular movement - Neck Neck exam: no masses, trachea midline - Respiratory normal expansion, other (diminished air movement at the bilateral bases, mild crackles over the right lower lung field.) - Cardiovascular Cardiovascular exam: Present: RRR, no murmurs/rubs/gallops - Abdomen Abdomen: Present: bowel sounds present, soft, non tender Hernia: none - Incision Incision: Present: clean and dry. Absent: erythema - Genitourinary other (Patient with significant scrotal edema.) - Integumentary no rash - Neurologic CN 2-12 grossly intact, normal coordination, normal sensation - Psychiatric oriented to time, oriented to person, oriented to place, speech is normal, memory intact - Labs 07/24/17 01:48 07/24/17 01:48 Diabetes panel 07/24/17 Range/Units 01:48 Sodium 132 L (136-145) mEq/L Potassium 4.2 (3.5-5.1) mEq/L Chloride 98 (98-107) mEq/L Carbon Dioxide 28 (23-29) mEq/L BUN 23 (8-23) mg/dL Creatinine 0.82 (0.70-1.30) mg/dL Glucose 95 (70-105) mg/dL Calcium 8.3 L (8.6-10.3) mg/dL AST 27 (13-39) Units/L ALT 20 (7-52) Units/L Alkaline Phosphatase 90 (34-104) Units/L Albumin 2.6 L (3.5-5.7) g/dL Calcium panel 07/24/17 Range/Units 01:48 Calcium 8.3 L (8.6-10.3) mg/dL Albumin 2.6 L (3.5-5.7) g/dL Pituitary panel 07/24/17 Range/Units 01:48 Sodium 132 L (136-145) mEq/L Potassium 4.2 (3.5-5.1) mEq/L Chloride 98 (98-107) mEq/L Carbon Dioxide 28 (23-29) mEq/L BUN 23 (8-23) mg/dL Creatinine 0.82 (0.70-1.30) mg/dL Glucose 95 (70-105) mg/dL Calcium 8.3 L (8.6-10.3) mg/dL Adrenal panel 07/23/17 07/24/17 Range/Units 08:32 01:48 Sodium 132 L (136-145) mEq/L Potassium 4.2 (3.5-5.1) mEq/L Chloride 98 (98-107) mEq/L Carbon Dioxide 28 (23-29) mEq/L BUN 23 (8-23) mg/dL Creatinine 0.82 (0.70-1.30) mg/dL Glucose 95 (70-105) mg/dL Calcium 8.3 L (8.6-10.3) mg/dL Total Bilirubin 2.2 H 3.1 H (0.3-1.0) mg/dL AST 27 (13-39) Units/L ALT 20 (7-52) Units/L Alkaline Phosphatase 90 (34-104) Units/L Albumin 2.6 L (3.5-5.7) g/dL - VTE Reasons for not Prescribing Prophylaxis: Not indicated-Anticoagulated or INR therapeutic Documentation of Mechanical Device: Intermittent pneumatic compression device Consult Discharge Plan - Plan Instructions: Heart Failure (DC), Atrial Fibrillation (DC), Pacemaker (DC), Bowel Resection (DC), Anemia (GEN), Pneumonia (DC) Additional Instructions: General Surgical Discharge Instructions 1. No pushing, pulling, or lifting greater than 15 lbs for 6 weeks (depending upon procedure). 2. You may shower beginning today, but no tub baths, soaking, or swimming for 2 weeks. 3. You may resume driving when you are off narcotics and are safe to react in a car. 4. Take ibuprofen every 8 hours if needed for discomfort. If this does not relieve discomfort, you may take the as needed Percocet. Take narcotics only as directed. Do not take more narcotics then directed and do not share your narcotics with any other person. Do not drink alcohol while on narcotics. 5. Take stool softeners (Colace) or a water based laxative (Miralax) while taking narcotics. You may hold for loose stools. 6. Report any fevers greater than 100.5F, increase abdominal discomfort, drainage that looks like pus, increased redness or pain at the surgical site, or any vomiting. 7. Report any pain in the calves, shortness of breath, or rapid heartbeat. 8. Follow-up in the office as directed. 9. If you were prescribed antibiotics, do not stop them without talking to your provider. Wound Packing Instructions: Remove dressing and packing daily. Shower with antibacterial soap. Repack for 1/4 inch gauze for wicking purposes and cover with a dry dressing, taped and secure. Referrals: Dane Justin MD [Primary Care Provider] - Carlita Mccabe CNP [Advanced Practice Nurse] - <Dane Swanson T - Last Filed: 07/29/17 08:34> Date of Encounter: 07/24/17 - Assessment and Plan (1) Anemia Current Visit: Yes Status: Acute Qualifiers: Anemia type: other cause Other causes of anemia: acute posthemorrhagic Qualified Code(s): D62 - Acute posthemorrhagic anemia Objective Vital Signs - Last 8 Hours Temp Pulse Resp BP Pulse Ox 07/29/17 08:21 16 96 07/29/17 06:40 97.9 F 79 16 125/64 97 07/29/17 03:48 98.6 F 87 18 101/69 95 Intake and Output 07/28/17 07/29/17 07/29/17 23:59 07:59 15:59 Intake Total 100 / 100 60 / 60 Output Total 710 / 710 50 / 50 Balance -610 / -610 10 Intake: IV Fluids 100 / 100 Zosyn 3.375 GM In 0.9 % Sodium 100 / 100 Chloride 100 ML @ 25 mls/hr IVPB Q8H [facility] Rx#:[id number] Oral 0 / 0 60 / 60 Output: Urine 710 / 710 50 / 50 Other: Stool Size Large Stool Consistency liquid # Voids 0 0 # Bowel Movements 1 Weight 64.2 kg Blood Glucose* 165 89 Patient Weight 07/29/17 23:59 Weight 64.2 kg - Labs 07/29/17 04:43 07/29/17 04:43 Diabetes panel 07/29/17 Range/Units 04:43 Sodium 136 (136-145) mEq/L Potassium 3.3 L (3.5-5.1) mEq/L Chloride 98 (98-107) mEq/L Carbon Dioxide 32 H (23-29) mEq/L BUN 13 (8-23) mg/dL Creatinine 0.73 (0.70-1.30) mg/dL Glucose 94 (70-105) mg/dL Calcium 8.2 L (8.6-10.3) mg/dL Calcium panel 07/29/17 Range/Units 04:43 Calcium 8.2 L (8.6-10.3) mg/dL Pituitary panel 07/29/17 Range/Units 04:43 Sodium 136 (136-145) mEq/L Potassium 3.3 L (3.5-5.1) mEq/L Chloride 98 (98-107) mEq/L Carbon Dioxide 32 H (23-29) mEq/L BUN 13 (8-23) mg/dL Creatinine 0.73 (0.70-1.30) mg/dL Glucose 94 (70-105) mg/dL Calcium 8.2 L (8.6-10.3) mg/dL Adrenal panel 07/29/17 Range/Units 04:43 Sodium 136 (136-145) mEq/L Potassium 3.3 L (3.5-5.1) mEq/L Chloride 98 (98-107) mEq/L Carbon Dioxide 32 H (23-29) mEq/L BUN 13 (8-23) mg/dL Creatinine 0.73 (0.70-1.30) mg/dL Glucose 94 (70-105) mg/dL Calcium 8.2 L (8.6-10.3) mg/dL - Attending Attestation I examined this patient and my medical decision-making was reviewed with the Resident Physician. I agree with the documented findings, disposition and treatment plan as described except to the extent set forth below. The patient was seen and evaluated on morning rounds with resolution. He continues to make slow progress. White blood cell count was trending downward. Pulmonary clearance continues to be a problem Dane Swanson MD FACS
[2017-07-24] MEDS: Aspirin Enteric Coated 81 MG Tablet PO SCH (08:07)
[2017-07-24] MEDS: Pantoprazole 40 MG VIAL IVP SCH ×2 (08:07→22:05)
[2017-07-24] MEDS: Potassium Chloride Elixir 20 MEQ/15 ML UDC PO SCH (08:08)
[2017-07-24] MEDS: Ipratropium/Albuterol Neb 3 ML IH PRN ×3 (10:32→19:40)
[2017-07-24] MEDS: Budesonide/Formoterol 160/4.5 MDI IH SCH ×2 (10:32→19:36)
[2017-07-24] MEDS: Artificial Tears SOLN 15 ML BOTTLE BOTH EYES SCH ×4 (11:03→22:07)
--- NOTE | 2017-07-24 12:18 | Electrocardiograph Report ---
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
--- NOTE | 2017-07-24 13:26 | Internal Med Progress Note ---
<Roland Cadena - Last Filed: 07/24/17 13:24> Date of Encounter: 07/24/17 Time of Encounter: 13:24 - Assessment and plan (1) GI bleed Current Visit: Yes Status: Acute Assessment and plan: Patient is on Plavix and ASA due to recent stent placement, requiring dual antiplatelet therapy We will continue to monitor the patients hemoglobin and hematocrit Hemoglobin currently 8.4 decreased from 9.2 yesterday. Recommend this patent have an EGD and colonscopy when the patient is stable Qualifiers: GI bleed type/associated pathology: gastritis Gastritis type: acute gastritis Qualified Code(s): K29.01 - Acute gastritis with bleeding (2) Acute blood loss anemia Current Visit: Yes Status: Acute Assessment and plan: Patient has a GI bleed anemia likely secondary to blood loss. Patient requires dual antiplatelet therapy Patient's hemoglobin is currently 8.4. (3) Pneumonia Current Visit: Yes Status: Acute Assessment and plan: WBC 17.1 today Day 2 of antibiotics. D/C Vancomycin Continue with Zosyn CXR showed: Patchy parenchymal airspace disease, slightly worse in the right lower lobe concerning for worsening pneumonia. There is slight improvement in left effusion Qualifiers: Pneumonia type: due to unspecified organism Laterality: unspecified laterality Lung location: unspecified part of lung Qualified Code(s): J18.9 - Pneumonia, unspecified organism (4) Sepsis Current Visit: No Status: Acute Assessment and plan: Has a WBC of 17.1 Possibly secondary to pneumonia Continue with zosyn Qualifiers: Sepsis type: sepsis due to unspecified organism Qualified Code(s): A41.9 - Sepsis, unspecified organism (5) CAD (coronary artery disease) Current Visit: Yes Status: Chronic Assessment and plan: Due to the patient having a recent stent placement the patient needs to be on dual antiplatelet therapy. Continue with the patient's Plavix and aspirin Qualifiers: Coronary Disease-Associated Artery/Lesion type: [place] artery [place] vs. transplanted heart: [place] heart Associated angina: without angina Qualified Code(s): I25.10 - Atherosclerotic heart disease of [place] coronary artery without angina pectoris (6) Status post small bowel resection Current Visit: Yes Status: Acute Assessment and plan: Patient is postoperative for a 10 cm small bowel resection and incisional hernia repair. Patient is being followed along by surgery. Per surgery note we will advance to full cardiac diet . (7) PAF (paroxysmal atrial fibrillation) Current Visit: Yes Status: Chronic Assessment and plan: Patient has a history of atrial fibrillation. He has been having some rapid ventricular response. Patient is on diltiazem drip for rate control. Anticoagulation will be held due to possible GI bleed. Patient is currently on Plavix and aspirin. (8) Systolic heart failure Current Visit: Yes Status: Chronic Assessment and plan: Patient has a known history of congestive heart failure. Last echocardiogram showed LVEF 35-40%. Moderate global and segmental left ventricular systolic dysfunction. Severe pulmonary hypertension. No significant valvular dysfunction. We will continue with lasix today. Qualifiers: Heart failure chronicity: acute on chronic Qualified Code(s): I50.23 - Acute on chronic systolic (congestive) heart failure (9) Leukocytosis Current Visit: Yes Status: Acute Assessment and plan: WBC of 17.1 Patient has a likely pneumonia on CXR Qualifiers: Leukocytosis type: unspecified Qualified Code(s): D72.829 - Elevated white blood cell count, unspecified (10) Hyperbilirubinemia Current Visit: Yes Status: Acute Assessment and plan: Surgery is following patient. Per note they suspect this is secondary to gallbladder sludge secondary to TPN Total Bili 3.1 increased from 2.2 TPN has been D/C (11) Hypertension Current Visit: No Status: Chronic Assessment and plan: Patient's blood pressure is currently normotensive. No further antihypertensive medication is required at this time. Qualifiers: Hypertension type: essential hypertension Qualified Code(s): I10 - Essential (primary) hypertension (12) Sacral decubitus ulcer, stage II Current Visit: Yes Status: Acute Assessment and plan: Wound care has been consulted on this patient (13) DVT prophylaxis Current Visit: No Status: Acute Assessment and plan: Patient has SCDs in place. - Subjective Interval history: Mr. Yeung states that he is feeling somewhat better today. States that he is able to drink a bottle of ensure it some mashed potatoes, ice cream and had some coffee. Says he tolerated this without any issue. Patient states that his breathing waxes and wanes but right now is doing quite a bit better than it was yesterday. - Constitutional Vitals: Temp Pulse Resp BP Pulse Ox 97.9 F 92 16 106/68 98 07/24/17 11:39 07/24/17 11:39 07/24/17 11:39 07/24/17 11:39 07/24/17 11:39 General appearance: Present: mild distress, A&O X 3 - Head Head exam: Present: atraumatic, normocephalic - Neck Neck exam general surgery: Present: full ROM, supple, trachea midline - Respiratory Respiratory exam: Present: rhonchi (bilaterally) - Cardiovascular Cardiovascular exam: Present: RRR, +S1, +S2. Absent: diastolic murmur, gallop, rubs, systolic murmur - GI/Abdominal GI/Abdominal exam: Present: diminished bowel sounds, soft. Absent: tenderness, no peritoneal signs Additional comments: Patient has a surgical dressing over midline of abdomen due to recent small bowel resection and incisional hernia repair. - Extremities Exam Additional comments: Patient has SCDs in place. 2+ pitting edema bilateral lower extremity. - Neurological Exam Neurological exam: Present: oriented X3, no focal deficits. Absent: facial droop, speech deficit - Psychiatric Psychiatric exam: Present: normal affect, normal mood - Skin Skin exam: Present: dry, intact, warm Additional comments: Patient has known sacral decubitus Internal Medicine: Result - Labs CBC & Chem 7: 07/24/17 01:48 07/24/17 01:48 Labs: Short CBC 07/24/17 Range/Units 01:48 WBC 17.1 H (4.3-11.1) K/mcL Hgb 8.4 L (12.9-16.9) g/dL Hct 28.3 L (37.5-50.1) % Plt Count 250 (140-400) K/mcL Neutrophils # 13.2 H (1.6-8.9) K/mcL BMP 07/24/17 01:48 Sodium 132 L Potassium 4.2 Chloride 98 Carbon Dioxide 28 BUN 23 Creatinine 0.82 Glucose 95 Calcium 8.3 L Liver Function 07/24/17 Range/Units 01:48 Total Bilirubin 3.1 H (0.3-1.0) mg/dL AST 27 (13-39) Units/L ALT 20 (7-52) Units/L Alkaline Phosphatase 90 (34-104) Units/L Albumin 2.6 L (3.5-5.7) g/dL - ABG Interpretation ABG results: PT/INR, D-dimer PT 21.4 Seconds (9.4-12.1) H D 07/19/17 17:10 - Impressions Impressions Chest X-Ray 07/23/17 14:38 IMPRESSION: Patchy parenchymal airspace disease, slightly worse in the right lower lobe concerning for worsening pneumonia. There is slight improvement in left effusion D/ / Iraj Rodrigez MD / Iraj Rodrigez MD Interpreting Provider: Iraj Rodrigez MD Abdomen/Pelvis CT 07/23/17 19:00 IMPRESSION: 1. Subacute left renal infarcts. 2. Moderate bilateral pleural effusions. 3. Anasarca. D/ / 07/23/2017 22:20:04 Jefry Roach MD / bcarter Interpreting Provider: Jefry Roach MD - VTE Reasons for not Prescribing Prophylaxis: Not indicated-Anticoagulated or INR therapeutic Documentation of Mechanical Device: Intermittent pneumatic compression device Consult Discharge Plan - Plan Referrals: Dane Justin MD [Primary Care Provider] - <Tigre Peterson H - Last Filed: 07/24/17 15:54> Date of Encounter: 07/24/17 - Constitutional Vitals: Temp Pulse Resp BP Pulse Ox 97.9 F 92 24 106/68 100 07/24/17 11:39 07/24/17 11:39 07/24/17 14:48 07/24/17 11:39 07/24/17 14:48 Internal Medicine: Result - Labs CBC & Chem 7: 07/24/17 01:48 07/24/17 01:48 Labs: Short CBC 07/24/17 Range/Units 01:48 WBC 17.1 H (4.3-11.1) K/mcL Hgb 8.4 L (12.9-16.9) g/dL Hct 28.3 L (37.5-50.1) % Plt Count 250 (140-400) K/mcL Neutrophils # 13.2 H (1.6-8.9) K/mcL BMP 07/24/17 01:48 Sodium 132 L Potassium 4.2 Chloride 98 Carbon Dioxide 28 BUN 23 Creatinine 0.82 Glucose 95 Calcium 8.3 L Liver Function 07/24/17 Range/Units 01:48 Total Bilirubin 3.1 H (0.3-1.0) mg/dL AST 27 (13-39) Units/L ALT 20 (7-52) Units/L Alkaline Phosphatase 90 (34-104) Units/L Albumin 2.6 L (3.5-5.7) g/dL - ABG Interpretation ABG results: PT/INR, D-dimer PT 21.4 Seconds (9.4-12.1) H D 07/19/17 17:10 - Impressions Impressions Chest X-Ray 07/23/17 14:38 IMPRESSION: Patchy parenchymal airspace disease, slightly worse in the right lower lobe concerning for worsening pneumonia. There is slight improvement in left effusion D/ / Iraj Rodrigez MD / Iraj Rodrigez MD Interpreting Provider: Iraj Rodrigez MD Abdomen/Pelvis CT 07/23/17 19:00 IMPRESSION: 1. Subacute left renal infarcts. 2. Moderate bilateral pleural effusions. 3. Anasarca. D/ / 07/23/2017 22:20:04 Jefry Roach MD / ronaldo Interpreting Provider: Jefry Roach MD - Attending Attestation A. fib with RVR possibly triggered by sepsis secondary to gram-negative pneumonia, volume overload with bilateral pleural effusions and possible anasarca Start IV Lasix 20 mg twice a day, strict I's and O's and daily weight Continue Zosyn , discontinued vancomycin Order CT scan of the abdomen and pelvis: Bilateral pleural effusions and left renal infarcts Continue aspirin and Plavix The patient is on a Cardizem drip, tachycardic, responded to metoprolol IV I examined this patient and my medical decision-making was reviewed with the Resident Physician. I agree with the documented findings, disposition and treatment plan as described except to the extent set forth below.
[2017-07-24] MEDS: OXYCODONE Oral CONC 10 MG/0.5 ML ORAL.SYG SL PRN (15:44)
[2017-07-24] MEDS ORDERED: Furosemide 20 MG/2 ML VIAL IVP ONE (15:48)
[2017-07-24] MEDS: Furosemide 20 MG/2 ML VIAL IVP SCH (16:00)
[2017-07-24] MEDS ORDERED: Furosemide 40 MG/4 ML VIAL ONE (17:17)
[2017-07-24] MEDS: Leptospermum Honey Paste 44 ML TUBE TP SCH (17:30)
[2017-07-24] MEDS ORDERED: Furosemide 20 MG/2 ML VIAL IVP SCH (21:00)
[2017-07-25] MEDS: Leptospermum Honey Paste 44 ML TUBE TP SCH ×3 (03:54→20:50)
[2017-07-25] MEDS: *HR* LORazepam 2 MG/ML VIAL IVP SCH ×3 (06:12→21:10)
[2017-07-25] MEDS ORDERED: Methylnaltrexone 12 MG/0.6 ML SYRINGE SQ ONE (07:41)
--- NOTE | 2017-07-25 07:44 | General Surgery Progress Note ---
<Carlita Mccabe - Last Filed: 07/25/17 10:22> Date of Encounter: 07/25/17 Time of Encounter: 07:10 - Assessment and Plan (1) Status post small bowel resection Current Visit: Yes Status: Acute POD #12 of #1 repair of incisional hernia #[address] small bowel resection with Dr. Swanson Final pathology notes:A. Small bowel, segmental resection: Mucosal necrosis, enteritis, and vascular congestion, consistent with ischemic changes. B. Incarcerated hernia sac, excision: Fibroadipose tissue with early necrosis and vascular congestion. His abdominal exam is overall and 9. He has expected postoperative tenderness. His abdominal incision is overall clean, dry, and intact. There are 2 areas of packing noted. Erythema previously noted has subsided. He states he still has not had a bowel movement and is passing little flatus. He is been treated with Reglan, Colace 100 mg BID, and MiraLAX daily. Plan: increase Miramax to BID until having bowel movements daily that are "mashed potatoes consistency," and may decrease to daily. Encourage patient to drink Miralax "straight down," rather than sipping on MiraLAX. Continue Colace BID. Stop Reglan. Add methylnaltrexone 12 mg SubQ x1 Continue soft diet and high-protein. Will add PRN ibuprofen (take only with food) for discomfort management in an effort to limit narcotic use given lack of BMs. Stop NPO narcotics; add oxycodone 7.5/325 mg PRN Q4Hs Continue PPI therapy and AC recommendations per primary team. If patient is able to have bowel movements today, he will be appropriate for discharge from a surgical standpoint. DC planning per primary team. See discharge instructions and follow-up information under DC planning. (2) Anemia Current Visit: Yes Status: Acute Stable. Management per primary team Qualifiers: Anemia type: other cause Other causes of anemia: acute posthemorrhagic Qualified Code(s): D62 - Acute posthemorrhagic anemia Subjective Patient reports: no new complaints, feels better, still having pain, pain is less, tolerating liquids well, voiding w/o difficulty (per williamson (managment per primary team)), flatus, no bowel movement, shortness of breath, afebrile Objective Vital Signs - Last 8 Hours Temp Pulse Resp BP Pulse Ox 07/25/17 06:35 97.6 F 94 15 98/53 98 07/25/17 04:15 97.6 F 90 20 123/58 98 Intake and Output 07/24/17 07/24/17 07/25/17 15:59 23:59 07:59 Intake Total 340 / 340 225 / 225 0 / 0 Output Total 1999 1250 / 1250 Balance 340 / 340 -1775 / -1775 -1250 / -1250 Intake: IV Fluids 100 / 100 225 / 225 Cardizem 125 MG In 0.9 % Sodium 125 / 125 Chloride 100 ML @ 5 MG/HR 5 mls/hr IVC .Q24H [facility] Rx#: [id number] Zosyn 3.375 GM In 0.9 % Sodium 100 / 100 100 / 100 Chloride 100 ML @ 25 mls/hr IVPB Q8HR [facility] Rx#:[id number] Oral 240 / 240 0 / 0 0 / 0 Output: Catheter 1999 1250 / 1250 Other: Meal Breakfast Percent of Meal Consumed 25% Weight 72.3 kg Blood Glucose* 141 141 94 Patient Weight 07/25/17 23:59 Weight 72.3 kg - General physical appearance no distress, moderate pain - Eyes normal ocular movement - ENT atraumatic, normocephalic - Neck Neck exam: trachea midline, no venous distension - Respiratory other (decreased and rhonchi throughout) - Cardiovascular Cardiovascular exam: Present: RRR, murmurs - Abdomen Abdomen: Present: bowel sounds present, soft, tender (Expected postoperative) Hernia: none - Incision Incision: Present: clean and dry, intact (Overall clean, dry, and intact. Two inferior areas have had rose removed and packing noted. Previously noted erythema has significantly improved.) - Integumentary no rash, other - Neurologic normal sensation - Musculoskeletal normal posture - Psychiatric oriented to time, oriented to person, oriented to place, memory intact - Labs 07/25/17 06:20 07/25/17 06:20 - VTE Reasons for not Prescribing Prophylaxis: Not indicated-Anticoagulated or INR therapeutic Documentation of Mechanical Device: Intermittent pneumatic compression device Consult Discharge Plan - Plan Instructions: Heart Failure (DC), Atrial Fibrillation (DC), Pacemaker (DC), Bowel Resection (DC), Anemia (GEN), Pneumonia (DC) Additional Instructions: General Surgical Discharge Instructions 1. No pushing, pulling, or lifting greater than 15 lbs for 6 weeks (depending upon procedure). 2. You may shower beginning today, but no tub baths, soaking, or swimming for 2 weeks. 3. You may resume driving when you are off narcotics and are safe to react in a car. 4. Take ibuprofen every 8 hours if needed for discomfort. If this does not relieve discomfort, you may take the as needed Percocet. Take narcotics only as directed. Do not take more narcotics then directed and do not share your narcotics with any other person. Do not drink alcohol while on narcotics. 5. Take stool softeners (Colace) or a water based laxative (Miralax) while taking narcotics. You may hold for loose stools. 6. Report any fevers greater than 100.5F, increase abdominal discomfort, drainage that looks like pus, increased redness or pain at the surgical site, or any vomiting. 7. Report any pain in the calves, shortness of breath, or rapid heartbeat. 8. Follow-up in the office as directed. 9. If you were prescribed antibiotics, do not stop them without talking to your provider. Wound Packing Instructions: Remove dressing and packing daily. Shower with antibacterial soap. Repack for 1/4 inch gauze for wicking purposes and cover with a dry dressing, taped and secure. Referrals: Dane Justin MD [Primary Care Provider] - Carlita Mccabe CNP [Advanced Practice Nurse] - <Dane Swanson T - Last Filed: 07/29/17 08:46> Date of Encounter: 07/25/17 - Assessment and Plan (1) Anemia Current Visit: Yes Status: Acute Qualifiers: Anemia type: other cause Other causes of anemia: acute posthemorrhagic Qualified Code(s): D62 - Acute posthemorrhagic anemia Objective Vital Signs - Last 8 Hours Temp Pulse Resp BP Pulse Ox 07/29/17 08:21 16 96 07/29/17 06:40 97.9 F 79 16 125/64 97 07/29/17 03:48 98.6 F 87 18 101/69 95 Intake and Output 07/28/17 07/29/17 07/29/17 23:59 07:59 15:59 Intake Total 100 / 100 60 / 60 480 / 480 Output Total 710 / 710 150 / 150 Balance -610 / -610 -90 / -90 480 / 480 Intake: IV Fluids 100 / 100 Zosyn 3.375 GM In 0.9 % Sodium 100 / 100 Chloride 100 ML @ 25 mls/hr IVPB Q8H [facility] Rx#:[id number] Oral 0 / 0 60 / 60 480 / 480 Output: Urine 710 / 710 150 / 150 Other: Meal Breakfast Percent of Meal Consumed 0% Stool Size Large Stool Consistency liquid # Voids 0 0 # Bowel Movements 1 Weight 64.2 kg Blood Glucose* 165 89 Patient Weight 07/29/17 23:59 Weight 64.2 kg - Labs 07/29/17 04:43 07/29/17 04:43 Diabetes panel 07/29/17 Range/Units 04:43 Sodium 136 (136-145) mEq/L Potassium 3.3 L (3.5-5.1) mEq/L Chloride 98 (98-107) mEq/L Carbon Dioxide 32 H (23-29) mEq/L BUN 13 (8-23) mg/dL Creatinine 0.73 (0.70-1.30) mg/dL Glucose 94 (70-105) mg/dL Calcium 8.2 L (8.6-10.3) mg/dL Calcium panel 07/29/17 Range/Units 04:43 Calcium 8.2 L (8.6-10.3) mg/dL Pituitary panel 07/29/17 Range/Units 04:43 Sodium 136 (136-145) mEq/L Potassium 3.3 L (3.5-5.1) mEq/L Chloride 98 (98-107) mEq/L Carbon Dioxide 32 H (23-29) mEq/L BUN 13 (8-23) mg/dL Creatinine 0.73 (0.70-1.30) mg/dL Glucose 94 (70-105) mg/dL Calcium 8.2 L (8.6-10.3) mg/dL Adrenal panel 07/29/17 Range/Units 04:43 Sodium 136 (136-145) mEq/L Potassium 3.3 L (3.5-5.1) mEq/L Chloride 98 (98-107) mEq/L Carbon Dioxide 32 H (23-29) mEq/L BUN 13 (8-23) mg/dL Creatinine 0.73 (0.70-1.30) mg/dL Glucose 94 (70-105) mg/dL Calcium 8.2 L (8.6-10.3) mg/dL - Attending Attestation I have personally performed a face to face evaluation on this patient. I have reviewed and agree with the care plan. History and Exam by me shows: The patient is seen and evaluated on morning rounds. The clinical information shared with the clinical nurse practitioner. The patient continues to make slow improvement. We will advance his diet as he progresses with his bowel function. Dane Swanson MD FACS
[2017-07-25 07:45] LABS: Alanine Aminotransferase 19 Units/L (7-52); Albumin 2.4 g/dL (3.5-5.7); Albumin/Globulin Ratio 0.9 (1.1-2.2); Alkaline Phosphatase 83 Units/L (34-104); Aspartate Amino Transferase 25 Units/L (13-39); BUN/Creatinine Ratio 23 (6-26); Bilirubin,Total 2.6 mg/dL (0.3-1.0); Blood Urea Nitrogen 19 mg/dL (8-23); Calcium 8.3 mg/dL (8.6-10.3); Carbon Dioxide 32 mEq/L (23-29); Chloride 97 mEq/L (98-107); Globulin 2.8 g/dL (2.4-3.5); Glucose 86 mg/dL (70-105); Osmolality,Calculated 282 (280-300); Potassium 3.3 mEq/L (3.5-5.1); Sodium 135 mEq/L (136-145); Total Protein 5.2 g/dL (6.4-8.9); eGFR For African Americans > 60 (> 60); eGFR For Non-African Americans > 60 (> 60)
[2017-07-25 08:01] LABS: Hematocrit 26.8 % (37.5-50.1); Hemoglobin 8.1 g/dL (12.9-16.9); Mean Corpuscular HGB Conc 30.2 g/dL (31.6-35.5); Mean Corpuscular Hemoglobin 24.4 pg (28.0-33.3); Mean Corpuscular Volume 80.7 fL (83.0-100.0); Platelet Count 270 K/mcL (140-400); Red Blood Count 3.32 M/mcL (4.19-5.50); Red Cell Distribution Width 23.2 % (11.5-14.5)
[2017-07-25] MEDS: Potassium Chloride Elixir 20 MEQ/15 ML UDC PO SCH ×2 (08:21→21:09)
[2017-07-25] MEDS: Aspirin Enteric Coated 81 MG Tablet PO SCH (08:21)
[2017-07-25] MEDS: Budesonide/Formoterol 160/4.5 MDI IH SCH ×2 (08:21→20:18)
[2017-07-25] MEDS: Pantoprazole 40 MG VIAL IVP SCH ×2 (08:21→21:10)
[2017-07-25] MEDS: Insulin LISPRO 300 UNITS/3 ML VIAL SQ SCH ×4 (08:22→20:49)
[2017-07-25] MEDS: Furosemide 20 MG/2 ML VIAL IVP SCH ×2 (08:22→17:10)
[2017-07-25] MEDS: Artificial Tears SOLN 15 ML BOTTLE BOTH EYES SCH ×4 (08:25→21:17)
--- NOTE | 2017-07-25 08:46 | Internal Med Progress Note ---
<Aubree Cadenan - Last Filed: 07/25/17 09:13> Date of Encounter: 07/25/17 Time of Encounter: 08:45 - Assessment and plan (1) GI bleed Current Visit: Yes Status: Acute Assessment and plan: Patient is on Plavix and ASA due to recent stent placement, requiring dual antiplatelet therapy We will continue to monitor the patients hemoglobin and hematocrit Hemoglobin currently 8.1 decreased from 8.4 yesterday. Recommend this patent have an EGD and colonscopy when the patient is stable Qualifiers: GI bleed type/associated pathology: gastritis Gastritis type: acute gastritis Qualified Code(s): K29.01 - Acute gastritis with bleeding (2) Acute blood loss anemia Current Visit: Yes Status: Acute Assessment and plan: Patient has a GI bleed anemia likely secondary to blood loss. Patient requires dual antiplatelet therapy Patient's hemoglobin is currently 8.1. (3) Pneumonia Current Visit: Yes Status: Acute Assessment and plan: WBC 12.8 today Continue with Zosyn Day 4 Most recent CXR showed: Patchy parenchymal airspace disease, slightly worse in the right lower lobe concerning for worsening pneumonia. There is slight improvement in left effusion Qualifiers: Pneumonia type: due to unspecified organism Laterality: unspecified laterality Lung location: unspecified part of lung Qualified Code(s): J18.9 - Pneumonia, unspecified organism (4) Sepsis Current Visit: No Status: Acute Assessment and plan: Has a WBC of 12.8 Episodes of tachycardia Possibly secondary to pneumonia Continue with zosyn Patient seems to be improving Qualifiers: Sepsis type: sepsis due to unspecified organism Qualified Code(s): A41.9 - Sepsis, unspecified organism (5) CAD (coronary artery disease) Current Visit: Yes Status: Chronic Assessment and plan: Due to the patient having a recent stent placement the patient needs to be on dual antiplatelet therapy. Continue with the patient's Plavix and aspirin Qualifiers: Coronary Disease-Associated Artery/Lesion type: [place] artery [place] vs. transplanted heart: [place] heart Associated angina: without angina Qualified Code(s): I25.10 - Atherosclerotic heart disease of [place] coronary artery without angina pectoris (6) Status post small bowel resection Current Visit: Yes Status: Acute Assessment and plan: Patient is postoperative for a 10 cm small bowel resection and incisional hernia repair. Patient is being followed along by surgery. . (7) PAF (paroxysmal atrial fibrillation) Current Visit: Yes Status: Chronic Assessment and plan: Patient has a history of atrial fibrillation. He has been having some rapid ventricular response. Patient is on diltiazem drip for rate control. Anticoagulation will be held due to possible GI bleed. Patient is currently on Plavix and aspirin. (8) Systolic heart failure Current Visit: Yes Status: Chronic Assessment and plan: Patient has a known history of congestive heart failure. Last echocardiogram showed LVEF 35-40%. Moderate global and segmental left ventricular systolic dysfunction. Severe pulmonary hypertension. No significant valvular dysfunction. Lasix 20mg bid Qualifiers: Heart failure chronicity: acute on chronic Qualified Code(s): I50.23 - Acute on chronic systolic (congestive) heart failure (9) Leukocytosis Current Visit: Yes Status: Acute Assessment and plan: WBC of 12.8 Patient has a likely pneumonia on CXR Qualifiers: Leukocytosis type: unspecified Qualified Code(s): D72.829 - Elevated white blood cell count, unspecified (10) Hyperbilirubinemia Current Visit: Yes Status: Acute Assessment and plan: Surgery is following patient. Per note they suspect this is secondary to gallbladder sludge secondary to TPN Total Bili 2.6 Decreased from 3.1 TPN has been D/C (11) Hypertension Current Visit: No Status: Chronic Assessment and plan: Patient's blood pressure is currently normotensive. No further antihypertensive medication is required at this time. Qualifiers: Hypertension type: essential hypertension Qualified Code(s): I10 - Essential (primary) hypertension (12) Sacral decubitus ulcer, stage II Current Visit: Yes Status: Acute Assessment and plan: Wound care has been consulted on this patient (13) DVT prophylaxis Current Visit: No Status: Acute Assessment and plan: Patient has SCDs in place. - Time Spent With Patient 25 - 35 minutes - Subjective Interval history: Mr. Yeung states that he is feeling somewhat better today. He states that his breathing is better. States that the Lasix has helped a lot and his breathing has significantly improved. States that he is not coughing as much as what he was. Patient denies any belly pain at rest but has still not had a bowel movement. - Constitutional Vitals: Temp Pulse Resp BP Pulse Ox 97.6 F 94 17 98/53 97 07/25/17 06:35 07/25/17 06:35 07/25/17 08:22 07/25/17 06:35 07/25/17 08:22 General appearance: Present: mild distress, A&O X 3 - Head Head exam: Present: atraumatic, normocephalic - Neck Neck exam general surgery: Present: full ROM, normal inspection, trachea midline - Respiratory Respiratory exam: Present: rhonchi (Bilaterally) Additional comments: Increased work of breathing - Cardiovascular Cardiovascular exam: Present: RRR, +S1, +S2. Absent: diastolic murmur, gallop, rubs, systolic murmur - GI/Abdominal GI/Abdominal exam: Present: normal bowel sounds, soft, no peritoneal signs. Absent: distended, tenderness - Extremities Exam Extremities exam: Present: pedal edema (2+ pitting edema bilateral lower extremities) - Neurological Exam Neurological exam: Present: oriented X3, no focal deficits. Absent: facial droop, speech deficit - Psychiatric Psychiatric exam: Present: normal affect, normal mood - Skin Skin exam: Present: dry, intact, warm (Patient is a known sacral decubitus.) Internal Medicine: Result - Labs CBC & Chem 7: 07/25/17 06:20 07/25/17 06:20 Labs: Short CBC 07/25/17 Range/Units 06:20 WBC 12.8 H (4.3-11.1) K/mcL Hgb 8.1 L (12.9-16.9) g/dL Hct 26.8 L (37.5-50.1) % Plt Count 270 (140-400) K/mcL BMP 07/25/17 06:20 Sodium 135 L Potassium 3.3 L Chloride 97 L Carbon Dioxide 32 H BUN 19 Creatinine 0.81 Glucose 86 Calcium 8.3 L Liver Function 07/25/17 Range/Units 06:20 Total Bilirubin 2.6 H (0.3-1.0) mg/dL AST 25 (13-39) Units/L ALT 19 (7-52) Units/L Alkaline Phosphatase 83 (34-104) Units/L Albumin 2.4 L (3.5-5.7) g/dL - ABG Interpretation ABG results: PT/INR, D-dimer PT 21.4 Seconds (9.4-12.1) H D 07/19/17 17:10 - VTE Reasons for not Prescribing Prophylaxis: Not indicated-Anticoagulated or INR therapeutic Documentation of Mechanical Device: Intermittent pneumatic compression device Consult Discharge Plan - Plan Referrals: Justin,Dane Guzmán MD [Primary Care Provider] - <Tigre Peterson H - Last Filed: 07/25/17 10:47> Date of Encounter: 07/25/17 - Constitutional Vitals: Temp Pulse Resp BP Pulse Ox 97.6 F 94 17 98/53 97 07/25/17 06:35 07/25/17 06:35 07/25/17 08:22 07/25/17 06:35 07/25/17 08:22 Internal Medicine: Result - Labs CBC & Chem 7: 07/25/17 06:20 07/25/17 06:20 Labs: Short CBC 07/25/17 Range/Units 06:20 WBC 12.8 H (4.3-11.1) K/mcL Hgb 8.1 L (12.9-16.9) g/dL Hct 26.8 L (37.5-50.1) % Plt Count 270 (140-400) K/mcL Neutrophils # 10.8 H (1.6-8.9) K/mcL BMP 07/25/17 06:20 Sodium 135 L Potassium 3.3 L Chloride 97 L Carbon Dioxide 32 H BUN 19 Creatinine 0.81 Glucose 86 Calcium 8.3 L Liver Function 07/25/17 Range/Units 06:20 Total Bilirubin 2.6 H (0.3-1.0) mg/dL AST 25 (13-39) Units/L ALT 19 (7-52) Units/L Alkaline Phosphatase 83 (34-104) Units/L Albumin 2.4 L (3.5-5.7) g/dL - ABG Interpretation ABG results: PT/INR, D-dimer PT 21.4 Seconds (9.4-12.1) H D 07/19/17 17:10 - Attending Attestation A. 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 I agree with the documented findings, disposition and treatment plan as described except to the extent set forth below.
[2017-07-25 09:44] LABS: Lymphocytes # 1.5 K/mcL (0.6-4.6); Monocytes # 0.5 K/mcL (0.0-1.3); Neutrophils # 10.8 K/mcL (1.6-8.9)
[2017-07-25 09:45] LABS: Anisocytosis 2+ (Not Present); Platelet Estimate Normal (Normal)
[2017-07-25] MEDS ORDERED: Ibuprofen 600 MG TABLET PO PRN (10:35)
--- NOTE | 2017-07-25 10:48 | Event Note ---
Date of Encounter: 07/25/17 Time of Encounter: 10:46 - Patient Status Disposition: Still a Patient Condition: Fair - Discharge Instructions Instructions: Bowel Resection (DC) Follow Up With: Dane Justin MD [Primary Care Provider] - Forms: ED Satisfaction Letter, Work/School Release Additional Instructions: General Surgical Discharge Instructions 1. No pushing, pulling, or lifting greater than 15 lbs for 6 weeks (depending upon procedure). 2. You may shower beginning today, but no tub baths, soaking, or swimming for 2 weeks. 3. You may resume driving when you are off narcotics and are safe to react in a car. 4. Take ibuprofen every 8 hours if needed for discomfort. If this does not relieve discomfort, you may take the as needed Percocet. Take narcotics only as directed. Do not take more narcotics then directed and do not share your narcotics with any other person. Do not drink alcohol while on narcotics. 5. Take stool softeners (Colace) or a water based laxative (Miralax) while taking narcotics. You may hold for loose stools. 6. Report any fevers greater than 100.5F, increase abdominal discomfort, drainage that looks like pus, increased redness or pain at the surgical site, or any vomiting. 7. Report any pain in the calves, shortness of breath, or rapid heartbeat. 8. Follow-up in the office as directed. 9. If you were prescribed antibiotics, do not stop them without talking to your provider. - Diet and Activity Activity: increase activity as tolerated Diet: advance to your usual diet
[2017-07-25] MEDS: Metoprolol XL (24 HR) Succ 25 MG TAB.ER.24H PO SCH (13:59)
[2017-07-25] MEDS ORDERED: Bisacodyl 10 MG RECTAL SUPPOSITORY RC ONE (15:09)
[2017-07-25] MEDS ORDERED: Haloperidol Lactate 5 MG/ML VIAL IVP PRN (23:54)
[2017-07-26] MEDS ORDERED: 0.9 % Sodium Chloride 250 ML ONE ×2 (00:15→13:02)
[2017-07-26 05:06] LABS: Basophils % 0.2 %; Eosinophils % 0.1 %; Hematocrit 26.9 % (37.5-50.1); Lymphocytes # 1.4 K/mcL (0.6-4.6); Lymphocytes % 11.4 %; Mean Corpuscular HGB Conc 29.7 g/dL (31.6-35.5); Mean Corpuscular Volume 80.8 fL (83.0-100.0); Mean Platelet Volume 10.7 fL (9.4-12.4); Monocytes # 1.3 K/mcL (0.0-1.3); Monocytes % 10.9 %; Neutrophils # 9.3 K/mcL (1.6-8.9); Platelet Count 306 K/mcL (140-400); Red Blood Count 3.33 M/mcL (4.19-5.50); Segmented Neutrophils % 76.4 %
[2017-07-26 05:26] LABS: Alanine Aminotransferase 18 Units/L (7-52); Albumin 2.3 g/dL (3.5-5.7); Albumin/Globulin Ratio 0.9 (1.1-2.2); Alkaline Phosphatase 102 Units/L (34-104); Aspartate Amino Transferase 22 Units/L (13-39); BUN/Creatinine Ratio 19 (6-26); Blood Urea Nitrogen 14 mg/dL (8-23); Calcium 8.1 mg/dL (8.6-10.3); Carbon Dioxide 31 mEq/L (23-29); Chloride 100 mEq/L (98-107); Globulin 2.7 g/dL (2.4-3.5); Glucose 97 mg/dL (70-105); Osmolality,Calculated 284 (280-300); Potassium 3.3 mEq/L (3.5-5.1); Sodium 137 mEq/L (136-145); eGFR For African Americans > 60 (> 60); eGFR For Non-African Americans > 60 (> 60)
[2017-07-26] MEDS: *HR* LORazepam 2 MG/ML VIAL IVP SCH ×3 (05:48→21:45)
[2017-07-26] MEDS: Budesonide/Formoterol 160/4.5 MDI IH SCH ×2 (08:01→20:16)
[2017-07-26] MEDS: Furosemide 20 MG/2 ML VIAL IVP SCH ×2 (08:09→17:40)
[2017-07-26] MEDS: Insulin LISPRO 300 UNITS/3 ML VIAL SQ SCH ×4 (09:41→21:15)
--- NOTE | 2017-07-26 10:04 | Internal Med Progress Note ---
<Roland Cadena - Last Filed: 07/26/17 10:10> Date of Encounter: 07/26/17 Time of Encounter: 10:02 - Assessment and plan (1) GI bleed Current Visit: Yes Status: Acute Assessment and plan: Patient is on Plavix and ASA due to recent stent placement, requiring dual antiplatelet therapy We will continue to monitor the patients hemoglobin and hematocrit Hemoglobin currently 8.0 decreased from 8.1 yesterday. Recommend this patent have an EGD and colonscopy to look for a source of potential bleeding GI has been consulted. Waiting for further recommendations. Qualifiers: GI bleed type/associated pathology: gastritis Gastritis type: acute gastritis Qualified Code(s): K29.01 - Acute gastritis with bleeding (2) Acute blood loss anemia Current Visit: Yes Status: Acute Assessment and plan: Patient has a GI bleed anemia likely secondary to blood loss. Patient requires dual antiplatelet therapy Patient's hemoglobin is currently 8.0. (3) Pneumonia Current Visit: Yes Status: Acute Assessment and plan: WBC 12.2 today Continue with Zosyn Day 5 Most recent CXR showed: Patchy parenchymal airspace disease, slightly worse in the right lower lobe concerning for worsening pneumonia. There is slight improvement in left effusion Qualifiers: Pneumonia type: due to unspecified organism Laterality: unspecified laterality Lung location: unspecified part of lung Qualified Code(s): J18.9 - Pneumonia, unspecified organism (4) Sepsis Current Visit: No Status: Acute Assessment and plan: Has a WBC of 12.2 Episodes of tachycardia Possibly secondary to pneumonia Continue with zosyn Patient seems to be improving Qualifiers: Sepsis type: sepsis due to unspecified organism Qualified Code(s): A41.9 - Sepsis, unspecified organism (5) CAD (coronary artery disease) Current Visit: Yes Status: Chronic Assessment and plan: Due to the patient having a recent stent placement the patient needs to be on dual antiplatelet therapy. Continue with the patient's Plavix and aspirin Qualifiers: Coronary Disease-Associated Artery/Lesion type: [place] artery [place] vs. transplanted heart: [place] heart Associated angina: without angina Qualified Code(s): I25.10 - Atherosclerotic heart disease of [place] coronary artery without angina pectoris (6) Status post small bowel resection Current Visit: Yes Status: Acute Assessment and plan: Patient is postoperative for a 10 cm small bowel resection and incisional hernia repair. Patient is being followed along by surgery. . (7) PAF (paroxysmal atrial fibrillation) Current Visit: Yes Status: Chronic Assessment and plan: Patient has a history of atrial fibrillation. He has been having some rapid ventricular response. Patient is on diltiazem drip for rate control. Titrating down. Toprol was started yesterday to help decrease diltiazem need. Anticoagulation will be held due to possible GI bleed. Patient is currently on Plavix and aspirin. (8) Systolic heart failure Current Visit: Yes Status: Chronic Assessment and plan: Patient has a known history of congestive heart failure. Last echocardiogram showed LVEF 35-40%. Moderate global and segmental left ventricular systolic dysfunction. Severe pulmonary hypertension. No significant valvular dysfunction. Lasix 20mg bid Qualifiers: Heart failure chronicity: acute on chronic Qualified Code(s): I50.23 - Acute on chronic systolic (congestive) heart failure (9) Leukocytosis Current Visit: Yes Status: Acute Assessment and plan: WBC of 12.2 Patient has a likely pneumonia on CXR Qualifiers: Leukocytosis type: unspecified Qualified Code(s): D72.829 - Elevated white blood cell count, unspecified (10) Hyperbilirubinemia Current Visit: Yes Status: Acute Assessment and plan: Surgery is following patient. Per note they suspect this is secondary to gallbladder sludge secondary to TPN Total Bili 2.0 Decreased from 2.6 TPN has been D/C (11) Hypertension Current Visit: No Status: Chronic Assessment and plan: Patient's blood pressure is currently normotensive. No further antihypertensive medication is required at this time. Qualifiers: Hypertension type: essential hypertension Qualified Code(s): I10 - Essential (primary) hypertension (12) Sacral decubitus ulcer, stage II Current Visit: Yes Status: Acute Assessment and plan: Wound care has been consulted on this patient (13) DVT prophylaxis Current Visit: No Status: Acute Assessment and plan: Patient has SCDs in place. - Subjective Interval history: Mr. Yeung states that he is feeling somewhat better today. He states that his breathing is better. States that the Lasix has helped a lot and his breathing has significantly improved. States that he is not coughing as much as what he was. Patient was asked about the event that happened overnight where he pulled out all of his lines and states he is not sure what happened he remembers the entire event but says that he just went "crazy" and is not really sure why he did it. - Constitutional Vitals: Temp Pulse Resp BP Pulse Ox 98.3 F 81 18 120/60 97 07/26/17 07:09 07/26/17 07:09 07/26/17 08:03 07/26/17 07:09 07/26/17 08:03 General appearance: Present: mild distress, A&O X 3 - Head Head exam: Present: atraumatic, normocephalic - Neck Neck exam general surgery: Present: full ROM, normal inspection, trachea midline - Respiratory Respiratory exam: Present: rhonchi (bilaterally) - Cardiovascular Cardiovascular exam: Present: irregular rhythm, +S1, +S2 - GI/Abdominal GI/Abdominal exam: Present: diminished bowel sounds, soft. Absent: tenderness, no peritoneal signs Additional comments: Patient is surgical dressing over midline of the abdomen. - Extremities Exam Extremities exam: Present: pedal edema (2+ pitting edema in bilateral lower extremities) Additional comments: Patient has some swelling and fluid in the right upper extremity. - Neurological Exam Neurological exam: Present: oriented X3, no focal deficits. Absent: facial droop, speech deficit - Psychiatric Psychiatric exam: Present: normal affect, normal mood - Skin Skin exam: Present: dry, intact, warm Internal Medicine: Result - Labs CBC & Chem 7: 07/26/17 04:43 07/26/17 04:43 Labs: Short CBC 07/26/17 Range/Units 04:43 WBC 12.2 H (4.3-11.1) K/mcL Hgb 8.0 L (12.9-16.9) g/dL Hct 26.9 L (37.5-50.1) % Plt Count 306 (140-400) K/mcL Neutrophils # 9.3 H (1.6-8.9) K/mcL BMP 07/26/17 04:43 Sodium 137 Potassium 3.3 L Chloride 100 Carbon Dioxide 31 H BUN 14 Creatinine 0.72 Glucose 97 Calcium 8.1 L Liver Function 07/26/17 Range/Units 04:43 Total Bilirubin 2.0 H (0.3-1.0) mg/dL AST 22 (13-39) Units/L ALT 18 (7-52) Units/L Alkaline Phosphatase 102 (34-104) Units/L Albumin 2.3 L (3.5-5.7) g/dL - ABG Interpretation ABG results: PT/INR, D-dimer PT 21.4 Seconds (9.4-12.1) H D 07/19/17 17:10 - VTE Reasons for not Prescribing Prophylaxis: Not indicated-Anticoagulated or INR therapeutic Documentation of Mechanical Device: Intermittent pneumatic compression device Consult Discharge Plan - Plan Instructions: Bowel Resection (DC) Additional Instructions: General Surgical Discharge Instructions 1. No pushing, pulling, or lifting greater than 15 lbs for 6 weeks (depending upon procedure). 2. You may shower beginning today, but no tub baths, soaking, or swimming for 2 weeks. 3. You may resume driving when you are off narcotics and are safe to react in a car. 4. Take ibuprofen every 8 hours if needed for discomfort. If this does not relieve discomfort, you may take the as needed Percocet. Take narcotics only as directed. Do not take more narcotics then directed and do not share your narcotics with any other person. Do not drink alcohol while on narcotics. 5. Take stool softeners (Colace) or a water based laxative (Miralax) while taking narcotics. You may hold for loose stools. 6. Report any fevers greater than 100.5F, increase abdominal discomfort, drainage that looks like pus, increased redness or pain at the surgical site, or any vomiting. 7. Report any pain in the calves, shortness of breath, or rapid heartbeat. 8. Follow-up in the office as directed. 9. If you were prescribed antibiotics, do not stop them without talking to your provider. Referrals: Dane Justin MD [Primary Care Provider] - <Tigre Peterson - Last Filed: 07/26/17 11:07> Date of Encounter: 07/26/17 - Constitutional Vitals: Temp Pulse Resp BP Pulse Ox 98.3 F 80 18 97/49 97 07/26/17 07:09 07/26/17 10:04 07/26/17 08:03 07/26/17 10:04 07/26/17 08:03 Internal Medicine: Result - Labs CBC & Chem 7: 07/26/17 04:43 07/26/17 04:43 Labs: Short CBC 07/26/17 Range/Units 04:43 WBC 12.2 H (4.3-11.1) K/mcL Hgb 8.0 L (12.9-16.9) g/dL Hct 26.9 L (37.5-50.1) % Plt Count 306 (140-400) K/mcL Neutrophils # 9.3 H (1.6-8.9) K/mcL BMP 07/26/17 04:43 Sodium 137 Potassium 3.3 L Chloride 100 Carbon Dioxide 31 H BUN 14 Creatinine 0.72 Glucose 97 Calcium 8.1 L Liver Function 07/26/17 Range/Units 04:43 Total Bilirubin 2.0 H (0.3-1.0) mg/dL AST 22 (13-39) Units/L ALT 18 (7-52) Units/L Alkaline Phosphatase 102 (34-104) Units/L Albumin 2.3 L (3.5-5.7) g/dL - ABG Interpretation ABG results: PT/INR, D-dimer PT 21.4 Seconds (9.4-12.1) H D 07/19/17 17:10 - Attending Attestation The patient understands that Dr. Dunn might not be able to do a endoscopy later today, we will cut try to contact surgery. Patient understands that she required 3 units of blood a few days ago, needs to be on Plavix and aspirin and if needed, he would agree to have an endoscopy and possibly a colonoscopy on Saturday. I examined this patient and my medical decision-making was reviewed with the Resident Physician. I agree with the documented findings, disposition and treatment plan as described except to the extent set forth below.
[2017-07-26] MEDS: Leptospermum Honey Paste 44 ML TUBE TP SCH ×2 (10:37→21:59)
[2017-07-26] MEDS: Artificial Tears SOLN 15 ML BOTTLE BOTH EYES SCH ×4 (11:03→21:20)
[2017-07-26] MEDS: Pantoprazole 40 MG VIAL IVP SCH ×2 (11:07→21:14)
--- NOTE | 2017-07-26 12:12 | Gastroenterology Consult Note ---
<Karin Salmonn Taryn - Last Filed: 07/26/17 12:10> Date of Encounter: 07/26/17 Time of Encounter: 09:30 - Assessment and plan (1) Anemia Current Visit: Yes Status: Acute Assessment and plan: Discussed with Dr Dunn. He spoke with Dr Cadena and recommended surgery see the patient for anemia since they are familiar with him. Qualifiers: Anemia type: other cause Other causes of anemia: acute posthemorrhagic Qualified Code(s): D62 - Acute posthemorrhagic anemia - Time Spent With Patient Total time spent is greater than 50% in coordination of care (as documented) at patient's floor/unit and/or counseling patient: GI History of Present Illness - Data of Consult Patient: new to practice Consult date: 07/26/17 Requesting Physician: Tigre Peterson - Consult Narrative Reason for consult: anemia History of present illness: Mr Yeung is an 82 year old male who has a complex medical history including peripheral vascular disease, coronary artery disease, iron deficiency anemia. He originally presented to the ER with upper GI bleed. He had small bowel obstruction and is status post incisional hernia repair and small bowel resection. He has continued anemia. He denies any abdominal pain, nausea, vomiting, diarrhea, bloody or tarry stools. He is on asa and plavix due to recent coronary stenting. He also has a history of DVTs, and is on a cardizem drip at this time. Hgb this morning is 8.0. colon: 2014 tubular adenomas EGD: denies NSAIDS: ASA 81 mg anticoagulants: plavix Past Med Surg Social Fam HX - Past Medical History Medical history: asthma, atrial fibrillation, cardiomyopathy, COPD, coronary artery disease, DVT, hyperlipidemia, hypertension, myocardial infarction, RA, other Psychiatric history: no psych history - Past Surgical History Surgical History: angioplasty/stent (x2 in 2002), herniorrhaphy (right inguinal 09/2011; ventral hernia repair 09/2007), LE Bypass, LE vascular intervention, vascular surgery (Right thrombectomy fem/fem bypass graft 01/03/2014; Fem/Fem bypass 2006; left fem/pop bypass 1994) - Social History Smoking Status: Never smoker Smokeless Tobacco Status: No Alcohol use: none Drug use: none - Family History Mother Living Status: Hx Family Respiratory Disorders: Yes Father Living Status: Hx Family Cancer: Yes Review of Systems: GI: as per [place] GENERAL: denies fever, has some chills EYES: denies yellow discoloration ENT: denies pain with swallowing or difficulty swallowing CARDIO: denies chest pain, palpitations RESP: chronic shortness of breath with exertion : denies change in color of urine NEURO: weakness HEME: Denies any bruising MS: chronic joint and back pain. DERM: denies rash or itching PSYCH: Denies history of anxiety or depression - Constitutional Vitals: Temp Pulse Resp BP Pulse Ox 97.7 F 79 20 107/56 97 07/26/17 11:15 07/26/17 11:15 07/26/17 11:15 07/26/17 11:15 07/26/17 11:15 Exam: CONSTITUTIONAL:~alert, no acute distress.~HEAD:~normocephalic.~EYES:~no jaundice.~NECK:~no obvious swelling.~HEART:~irregular rate and rhythm, no murmurs.~LUNGS:~bilateral fair air entry.~ABDOMEN:~distended, soft, tender, large midline abdominal dressing dry and intact~RECTAL EXAM:~Deferred.~ EXTREMITIES:~no clubbing, cyanosis or edema.~SKIN:~no stigmata of chronic liver disease.~NEUROLOGIC:~no obvious focal defect.~~~~ Results - Labs CBC & Chem 7: 07/26/17 04:43 07/26/17 04:43 Labs: Last Result Calcium 8.1 mg/dL (8.6-10.3) L 07/26/17 04:43 Troponin I 0.03 ng/mL (< 0.04) 07/12/17 13:52 Stool Occult Blood Positive (Negative) A 07/12/17 13:20 Entire Visit Hgb 8.0 g/dL (12.9-16.9) L 07/26/17 04:43 Hct 26.9 % (37.5-50.1) L 07/26/17 04:43 PT 21.4 Seconds (9.4-12.1) H D 07/19/17 17:10 Total Bilirubin 2.0 mg/dL (0.3-1.0) H 07/26/17 04:43 AST 22 Units/L (13-39) 07/26/17 04:43 ALT 18 Units/L (7-52) 07/26/17 04:43 Lipase 22 Units/L (11-82) 07/12/17 13:52 - ABG ABG results: PT/INR, D-dimer PT 21.4 Seconds (9.4-12.1) H D 07/19/17 17:10 Consult Discharge Plan - Plan Instructions: Bowel Resection (DC) Additional Instructions: General Surgical Discharge Instructions 1. No pushing, pulling, or lifting greater than 15 lbs for 6 weeks (depending upon procedure). 2. You may shower beginning today, but no tub baths, soaking, or swimming for 2 weeks. 3. You may resume driving when you are off narcotics and are safe to react in a car. 4. Take ibuprofen every 8 hours if needed for discomfort. If this does not relieve discomfort, you may take the as needed Percocet. Take narcotics only as directed. Do not take more narcotics then directed and do not share your narcotics with any other person. Do not drink alcohol while on narcotics. 5. Take stool softeners (Colace) or a water based laxative (Miralax) while taking narcotics. You may hold for loose stools. 6. Report any fevers greater than 100.5F, increase abdominal discomfort, drainage that looks like pus, increased redness or pain at the surgical site, or any vomiting. 7. Report any pain in the calves, shortness of breath, or rapid heartbeat. 8. Follow-up in the office as directed. 9. If you were prescribed antibiotics, do not stop them without talking to your provider. Referrals: Dane Justin MD [Primary Care Provider] - <Kimo Dunn - Last Filed: 07/26/17 16:58> Date of Encounter: 07/26/17 - Time Spent With Patient Total time spent is greater than 50% in coordination of care (as documented) at patient's floor/unit and/or counseling patient: GI History of Present Illness - Data of Consult Requesting Physician: Tigre Peterson - Consult Narrative History of present illness: Mr. Yeung is a 82 year old male - Constitutional Vitals: Temp Pulse Resp BP Pulse Ox 97.8 F 81 18 112/64 99 07/26/17 16:36 07/26/17 16:36 07/26/17 16:36 07/26/17 16:36 07/26/17 16:36 Results - Labs CBC & Chem 7: 07/26/17 04:43 07/26/17 04:43 Labs: Last Result Calcium 8.1 mg/dL (8.6-10.3) L 07/26/17 04:43 Troponin I 0.03 ng/mL (< 0.04) 07/12/17 13:52 Stool Occult Blood Positive (Negative) A 07/12/17 13:20 Entire Visit Hgb 8.0 g/dL (12.9-16.9) L 07/26/17 04:43 Hct 26.9 % (37.5-50.1) L 07/26/17 04:43 PT 21.4 Seconds (9.4-12.1) H D 07/19/17 17:10 Total Bilirubin 2.0 mg/dL (0.3-1.0) H 07/26/17 04:43 AST 22 Units/L (13-39) 07/26/17 04:43 ALT 18 Units/L (7-52) 07/26/17 04:43 Lipase 22 Units/L (11-82) 07/12/17 13:52 - ABG ABG results: PT/INR, D-dimer PT 21.4 Seconds (9.4-12.1) H D 07/19/17 17:10 - Impressions Impressions Abdomen/Pelvis CT 07/23/17 19:00 IMPRESSION: 1. Subacute left renal infarcts. 2. Moderate bilateral pleural effusions. 3. Anasarca. D/ / 07/23/2017 22:20:04 Jefry Roach MD / bcarter Interpreting Provider: Jefry Roach MD - Attending Attestation Patient was recently admitted with SBO and underwent surgery and was noted to having a dropping hemoglobin. We were consulted by the hospitalist service to evaluate this. Dr Swanson expressed that he did not want any endoscopy done at this time on the patient apparently due to his present post surgical status and absent gross GI bleeding. Agree with that for now as there is no evidence for gross GI bleeding. Please call us if, anything changes. Kimo Dunn MD Gastroenterology
[2017-07-26] MEDS: Potassium Chloride Elixir 20 MEQ/15 ML UDC PO SCH ×2 (12:48→21:14)
[2017-07-26] MEDS: Aspirin Enteric Coated 81 MG Tablet PO SCH (14:59)
[2017-07-26] MEDS: Metoprolol XL (24 HR) Succ 25 MG TAB.ER.24H PO SCH (14:59)
[2017-07-26] MEDS: Ipratropium/Albuterol Neb 3 ML IH PRN (18:38)
[2017-07-27 03:56] LABS: Basophils % 0.2 %; Eosinophils % 0.4 %; Hematocrit 27.6 % (37.5-50.1); Hemoglobin 8.2 g/dL (12.9-16.9); Lymphocytes # 1.4 K/mcL (0.6-4.6); Lymphocytes % 15.3 %; Mean Corpuscular HGB Conc 29.7 g/dL (31.6-35.5); Mean Corpuscular Hemoglobin 23.9 pg (28.0-33.3); Mean Corpuscular Volume 80.5 fL (83.0-100.0); Monocytes # 0.9 K/mcL (0.0-1.3); Neutrophils # 6.5 K/mcL (1.6-8.9); Platelet Count 349 K/mcL (140-400); Red Blood Count 3.43 M/mcL (4.19-5.50); Segmented Neutrophils % 73.1 %
[2017-07-27] MEDS: *HR* OxyCODONE/APAP 7.5/325 TABLET PO PRN ×2 (04:04→13:15)
[2017-07-27 04:43] LABS: Alanine Aminotransferase 18 Units/L (7-52); Albumin 2.3 g/dL (3.5-5.7); Albumin/Globulin Ratio 0.8 (1.1-2.2); Alkaline Phosphatase 91 Units/L (34-104); Aspartate Amino Transferase 25 Units/L (13-39); BUN/Creatinine Ratio 21 (6-26); Bilirubin,Total 1.7 mg/dL (0.3-1.0); Blood Urea Nitrogen 14 mg/dL (8-23); Calcium 8.1 mg/dL (8.6-10.3); Carbon Dioxide 28 mEq/L (23-29); Chloride 101 mEq/L (98-107); Globulin 2.8 g/dL (2.4-3.5); Glucose 86 mg/dL (70-105); Osmolality,Calculated 286 (280-300); Potassium 3.5 mEq/L (3.5-5.1); Sodium 138 mEq/L (136-145); Total Protein 5.1 g/dL (6.4-8.9); eGFR For African Americans > 60 (> 60); eGFR For Non-African Americans > 60 (> 60)
[2017-07-27] MEDS: *HR* LORazepam 2 MG/ML VIAL IVP SCH ×2 (06:07→16:14)
[2017-07-27] MEDS: Budesonide/Formoterol 160/4.5 MDI IH SCH ×2 (08:11→20:10)
[2017-07-27] MEDS: Aspirin Enteric Coated 81 MG Tablet PO SCH (09:03)
[2017-07-27] MEDS: Furosemide 20 MG/2 ML VIAL IVP SCH ×2 (09:03→17:53)
[2017-07-27] MEDS: Pantoprazole 40 MG VIAL IVP SCH ×2 (09:03→21:15)
[2017-07-27] MEDS: Metoprolol XL (24 HR) Succ 25 MG TAB.ER.24H PO SCH (09:03)
[2017-07-27] MEDS: Potassium Chloride Elixir 20 MEQ/15 ML UDC PO SCH ×2 (09:04→21:15)
[2017-07-27] MEDS: Leptospermum Honey Paste 44 ML TUBE TP SCH (09:05)
[2017-07-27] MEDS: Insulin LISPRO 300 UNITS/3 ML VIAL SQ SCH ×4 (09:05→21:15)
[2017-07-27] MEDS: Artificial Tears SOLN 15 ML BOTTLE BOTH EYES SCH ×4 (09:05→21:14)
--- NOTE | 2017-07-27 11:03 | Internal Med Progress Note ---
Date of Encounter: 07/27/17 Time of Encounter: 11:02 - Assessment and plan (1) PAF (paroxysmal atrial fibrillation) Current Visit: Yes Status: Chronic Assessment and plan: A. fib with RVR possibly triggered by sepsis secondary to gram-negative pneumonia/healthcare assisted pneumonia present upon admission, volume overload with bilateral pleural effusions and possible anasarca . Was on diltiazem drip for rate control. Toprol was started Anticoagulation will be held due to possible GI bleed. Patient is currently on Plavix and aspirin. (2) Acute blood loss anemia Current Visit: Yes Status: Acute Assessment and plan: Acute blood loss anemia, unknown source, consider possible GI bleed, not actively bleeding Hemoccult positive on 07/12/2017 Patient requires dual antiplatelet therapy Surgery/ Dr Kiki not recommending endoscopy GI was consulted but not available during the weekend Continue Protonix IV twice a day (3) GI bleed Current Visit: Yes Status: Acute Assessment and plan: Patient is on Plavix and ASA due to recent stent placement, requiring dual antiplatelet therapy continue to monitor the patients hemoglobin and hematocrit Qualifiers: GI bleed type/associated pathology: gastritis Gastritis type: acute gastritis Qualified Code(s): K29.01 - Acute gastritis with bleeding (4) Pneumonia Current Visit: Yes Status: Acute Assessment and plan: Healthcare associated pneumonia present upon admission Continue with Zosyn Day 6 Most recent CXR showed: Patchy parenchymal airspace disease, slightly worse in the right lower lobe concerning for worsening pneumonia. There is slight improvement in left effusion Qualifiers: Pneumonia type: due to unspecified organism Laterality: unspecified laterality Lung location: unspecified part of lung Qualified Code(s): J18.9 - Pneumonia, unspecified organism (5) Systolic heart failure Current Visit: Yes Status: Chronic Assessment and plan: Patient has a known history of congestive heart failure. Last echocardiogram showed LVEF 35-40%. Moderate global and segmental left ventricular systolic dysfunction. Severe pulmonary hypertension. No significant valvular dysfunction. Increased dose of Lasix up to 40 mg IV twice a day Qualifiers: Heart failure chronicity: acute on chronic Qualified Code(s): I50.23 - Acute on chronic systolic (congestive) heart failure (6) Urinary retention due to benign prostatic hyperplasia Current Visit: Yes Status: Suspected Assessment and plan: Ta (7) Atrial fibrillation with rapid ventricular response Current Visit: No Status: Acute (8) Sepsis Current Visit: No Status: Acute Assessment and plan: Has a WBC of 12.2 Episodes of tachycardia Possibly secondary to pneumonia Continue with zosyn Qualifiers: Sepsis type: sepsis due to unspecified organism Qualified Code(s): A41.9 - Sepsis, unspecified organism - Subjective Interval history: Feeling short of breath, weak, has not noticed any episodes of bleeding. Denies any abdominal pain, no dysuria or diarrhea. No chest pain - Constitutional Vitals: Temp Pulse Resp BP Pulse Ox 98 F 75 16 114/66 97 07/27/17 06:58 07/27/17 06:58 07/27/17 08:13 07/27/17 06:58 07/27/17 09:00 General appearance: Present: mild distress, A&O X 3 Exam: - Head Head exam: Present: atraumatic, normocephalic - Neck Neck exam general surgery: Present: full ROM, normal inspection, trachea midline - Respiratory Respiratory exam: Present: rhonchi (bilaterally) - Cardiovascular Cardiovascular exam: Present: irregular rhythm, +S1, +S2 - GI/Abdominal GI/Abdominal exam: Present: diminished bowel sounds, soft. Absent: tenderness, no peritoneal signs Additional comments: Patient is surgical dressing over midline of the abdomen. - Extremities Exam Extremities exam: Present: pedal edema (2+ pitting edema in bilateral lower extremities) Additional comments: Patient has some swelling and fluid in the right upper extremity. - Neurological Exam Neurological exam: Present: oriented X3, no focal deficits. Absent: facial droop, speech deficit - Psychiatric Psychiatric exam: Present: normal affect, normal mood - Skin Skin exam: Present: dry, intact, warm Ta catheter during place Internal Medicine: Result - Labs CBC & Chem 7: 07/27/17 02:54 07/27/17 02:54 Labs: Short CBC 07/27/17 Range/Units 02:54 WBC 9.0 (4.3-11.1) K/mcL Hgb 8.2 L (12.9-16.9) g/dL Hct 27.6 L (37.5-50.1) % Plt Count 349 (140-400) K/mcL Neutrophils # 6.5 (1.6-8.9) K/mcL BMP 07/27/17 02:54 Sodium 138 Potassium 3.5 Chloride 101 Carbon Dioxide 28 BUN 14 Creatinine 0.68 L Glucose 86 Calcium 8.1 L Liver Function 07/27/17 Range/Units 02:54 Total Bilirubin 1.7 H (0.3-1.0) mg/dL AST 25 (13-39) Units/L ALT 18 (7-52) Units/L Alkaline Phosphatase 91 (34-104) Units/L Albumin 2.3 L (3.5-5.7) g/dL - ABG Interpretation ABG results: PT/INR, D-dimer PT 21.4 Seconds (9.4-12.1) H D 07/19/17 17:10 - Impressions Impressions Abdomen/Pelvis CT 07/23/17 19:00 IMPRESSION: 1. Subacute left renal infarcts. 2. Moderate bilateral pleural effusions. 3. Anasarca. D/ / 07/23/2017 22:20:04 Jefry Roach MD / miguel angelrtdamian Interpreting Provider: Jefry Roach MD - VTE Reasons for not Prescribing Prophylaxis: Not indicated-Anticoagulated or INR therapeutic Documentation of Mechanical Device: Intermittent pneumatic compression device Consult Discharge Plan - Plan Instructions: Bowel Resection (DC) Additional Instructions: General Surgical Discharge Instructions 1. No pushing, pulling, or lifting greater than 15 lbs for 6 weeks (depending upon procedure). 2. You may shower beginning today, but no tub baths, soaking, or swimming for 2 weeks. 3. You may resume driving when you are off narcotics and are safe to react in a car. 4. Take ibuprofen every 8 hours if needed for discomfort. If this does not relieve discomfort, you may take the as needed Percocet. Take narcotics only as directed. Do not take more narcotics then directed and do not share your narcotics with any other person. Do not drink alcohol while on narcotics. 5. Take stool softeners (Colace) or a water based laxative (Miralax) while taking narcotics. You may hold for loose stools. 6. Report any fevers greater than 100.5F, increase abdominal discomfort, drainage that looks like pus, increased redness or pain at the surgical site, or any vomiting. 7. Report any pain in the calves, shortness of breath, or rapid heartbeat. 8. Follow-up in the office as directed. 9. If you were prescribed antibiotics, do not stop them without talking to your provider. Referrals: Dane Justin MD [Primary Care Provider] -
[2017-07-27] MEDS: Ipratropium/Albuterol Neb 3 ML IH PRN (11:39)
--- NOTE | 2017-07-27 12:22 | General Surgery Progress Note ---
<Tara Marti - Last Filed: 07/27/17 12:19> Date of Encounter: 07/27/17 Time of Encounter: 08:20 - Assessment and Plan (1) Incisional hernia of anterior abdominal wall with obstruction Current Visit: Yes Status: Acute POD # 14 #1 repair of incisional hernia #[address] resection with Dr[address] Swanson -Patient with flatus and bowel movement, good bowel sounds. Benign abdominal exam without nausea or vomitting. -Patient's incision clean dry and intact. WBC 9.0 -Hemoglobin stable at 8.2 up from yesterday at 8.0. -No need for endoscopy at this time as patient is stable. -Increase activity as tolerated, PT/OT following. -Will re-evaluate williamson output tomorrow. -We will continue to follow. Subjective Patient reports: no new complaints, feels better, pain is less, tolerating liquids well, flatus, shortness of breath, afebrile Objective Vital Signs - Last 8 Hours Temp Pulse Resp BP Pulse Ox 07/27/17 11:58 97.8 F 79 16 107/61 98 07/27/17 11:41 16 99 07/27/17 09:00 97 07/27/17 08:13 16 97 07/27/17 06:58 98 F 75 16 114/66 95 Intake and Output 07/26/17 07/27/17 07/27/17 23:59 07:59 15:59 Intake Total 167 / 167 337 / 337 120 / 120 Output Total 500 / 500 200 / 200 850 / 850 Balance -333 / -333 137 / 137 -730 / -730 Intake: IV Fluids 167 / 167 100 / 100 Cardizem 125 MG In 0.9 % Sodium 67 / 67 Chloride 100 ML @ 5 MG/HR 5 mls/hr IVC .Q24H [facility] Rx#: [id number] Zosyn 3.375 GM In 0.9 % Sodium 100 / 100 100 / 100 Chloride 100 ML @ 25 mls/hr IVPB Q8HR [facility] Rx#:[id number] Oral 0 / 0 237 / 237 120 / 120 Output: Catheter 500 / 500 200 / 200 850 / 850 Other: Meal Dinner Breakfast Percent of Meal Consumed 5% 0% Stool Size Large Stool Consistency formed Stool Color Brown # Bowel Movements 1 Weight 67.5 kg Blood Glucose* 110 93 140 Patient Weight 07/27/17 23:59 Weight 67.5 kg - General physical appearance well developed, well nourished - Respiratory normal expansion, other (Patient with decreased air movement bilateral bases and rhonchi bilaterally.) - Cardiovascular Cardiovascular exam: Present: no murmurs/rubs/gallops Addtional Comments: Patient with irregular rhythm, S1-S2 - Abdomen Abdomen: Present: bowel sounds present, soft, non tender. Absent: guarding, rebound, rigid - Incision Incision: Present: clean and dry, intact - Genitourinary other (Williamson catheter in place.) - Neurologic CN 2-12 grossly intact, normal coordination, normal sensation - Psychiatric oriented to time, oriented to person, oriented to place, speech is normal, memory intact - Labs 07/27/17 02:54 07/27/17 02:54 Diabetes panel 07/27/17 Range/Units 02:54 Sodium 138 (136-145) mEq/L Potassium 3.5 (3.5-5.1) mEq/L Chloride 101 (98-107) mEq/L Carbon Dioxide 28 (23-29) mEq/L BUN 14 (8-23) mg/dL Creatinine 0.68 L (0.70-1.30) mg/dL Glucose 86 (70-105) mg/dL Calcium 8.1 L (8.6-10.3) mg/dL AST 25 (13-39) Units/L ALT 18 (7-52) Units/L Alkaline Phosphatase 91 (34-104) Units/L Albumin 2.3 L (3.5-5.7) g/dL Calcium panel 07/27/17 Range/Units 02:54 Calcium 8.1 L (8.6-10.3) mg/dL Albumin 2.3 L (3.5-5.7) g/dL Pituitary panel 07/27/17 Range/Units 02:54 Sodium 138 (136-145) mEq/L Potassium 3.5 (3.5-5.1) mEq/L Chloride 101 (98-107) mEq/L Carbon Dioxide 28 (23-29) mEq/L BUN 14 (8-23) mg/dL Creatinine 0.68 L (0.70-1.30) mg/dL Glucose 86 (70-105) mg/dL Calcium 8.1 L (8.6-10.3) mg/dL Adrenal panel 07/27/17 Range/Units 02:54 Sodium 138 (136-145) mEq/L Potassium 3.5 (3.5-5.1) mEq/L Chloride 101 (98-107) mEq/L Carbon Dioxide 28 (23-29) mEq/L BUN 14 (8-23) mg/dL Creatinine 0.68 L (0.70-1.30) mg/dL Glucose 86 (70-105) mg/dL Calcium 8.1 L (8.6-10.3) mg/dL Total Bilirubin 1.7 H (0.3-1.0) mg/dL AST 25 (13-39) Units/L ALT 18 (7-52) Units/L Alkaline Phosphatase 91 (34-104) Units/L Albumin 2.3 L (3.5-5.7) g/dL - VTE Reasons for not Prescribing Prophylaxis: Not indicated-Anticoagulated or INR therapeutic Documentation of Mechanical Device: Intermittent pneumatic compression device Consult Discharge Plan - Plan Instructions: Bowel Resection (DC) Additional Instructions: General Surgical Discharge Instructions 1. No pushing, pulling, or lifting greater than 15 lbs for 6 weeks (depending upon procedure). 2. You may shower beginning today, but no tub baths, soaking, or swimming for 2 weeks. 3. You may resume driving when you are off narcotics and are safe to react in a car. 4. Take ibuprofen every 8 hours if needed for discomfort. If this does not relieve discomfort, you may take the as needed Percocet. Take narcotics only as directed. Do not take more narcotics then directed and do not share your narcotics with any other person. Do not drink alcohol while on narcotics. 5. Take stool softeners (Colace) or a water based laxative (Miralax) while taking narcotics. You may hold for loose stools. 6. Report any fevers greater than 100.5F, increase abdominal discomfort, drainage that looks like pus, increased redness or pain at the surgical site, or any vomiting. 7. Report any pain in the calves, shortness of breath, or rapid heartbeat. 8. Follow-up in the office as directed. 9. If you were prescribed antibiotics, do not stop them without talking to your provider. Referrals: Dane Justin MD [Primary Care Provider] - <Rashaun Payton - Last Filed: 07/27/17 15:00> Date of Encounter: 07/27/17 Objective Vital Signs - Last 8 Hours Temp Pulse Resp BP Pulse Ox 07/27/17 11:58 97.8 F 79 16 107/61 98 07/27/17 11:41 16 99 07/27/17 09:00 97 07/27/17 08:13 16 97 Intake and Output 07/26/17 07/27/17 07/27/17 23:59 07:59 15:59 Intake Total 167 / 167 337 / 337 120 / 120 Output Total 500 / 500 200 / 200 850 / 850 Balance -333 / -333 137 / 137 -730 / -730 Intake: IV Fluids 167 / 167 100 / 100 Cardizem 125 MG In 0.9 % Sodium 67 / 67 Chloride 100 ML @ 5 MG/HR 5 mls/hr IVC .Q24H [facility] Rx#: [id number] Zosyn 3.375 GM In 0.9 % Sodium 100 / 100 100 / 100 Chloride 100 ML @ 25 mls/hr IVPB Q8HR [facility] Rx#:[id number] Oral 0 / 0 237 / 237 120 / 120 Output: Catheter 500 / 500 200 / 200 850 / 850 Other: Meal Dinner Breakfast Percent of Meal Consumed 5% 0% Stool Size Large Stool Consistency formed Stool Color Brown # Bowel Movements 1 Weight 67.5 kg Blood Glucose* 110 93 140 Patient Weight 07/27/17 23:59 Weight 67.5 kg - Labs 07/27/17 02:54 07/27/17 02:54 Diabetes panel 07/27/17 Range/Units 02:54 Sodium 138 (136-145) mEq/L Potassium 3.5 (3.5-5.1) mEq/L Chloride 101 (98-107) mEq/L Carbon Dioxide 28 (23-29) mEq/L BUN 14 (8-23) mg/dL Creatinine 0.68 L (0.70-1.30) mg/dL Glucose 86 (70-105) mg/dL Calcium 8.1 L (8.6-10.3) mg/dL AST 25 (13-39) Units/L ALT 18 (7-52) Units/L Alkaline Phosphatase 91 (34-104) Units/L Albumin 2.3 L (3.5-5.7) g/dL Calcium panel 07/27/17 Range/Units 02:54 Calcium 8.1 L (8.6-10.3) mg/dL Albumin 2.3 L (3.5-5.7) g/dL Pituitary panel 07/27/17 Range/Units 02:54 Sodium 138 (136-145) mEq/L Potassium 3.5 (3.5-5.1) mEq/L Chloride 101 (98-107) mEq/L Carbon Dioxide 28 (23-29) mEq/L BUN 14 (8-23) mg/dL Creatinine 0.68 L (0.70-1.30) mg/dL Glucose 86 (70-105) mg/dL Calcium 8.1 L (8.6-10.3) mg/dL Adrenal panel 07/27/17 Range/Units 02:54 Sodium 138 (136-145) mEq/L Potassium 3.5 (3.5-5.1) mEq/L Chloride 101 (98-107) mEq/L Carbon Dioxide 28 (23-29) mEq/L BUN 14 (8-23) mg/dL Creatinine 0.68 L (0.70-1.30) mg/dL Glucose 86 (70-105) mg/dL Calcium 8.1 L (8.6-10.3) mg/dL Total Bilirubin 1.7 H (0.3-1.0) mg/dL AST 25 (13-39) Units/L ALT 18 (7-52) Units/L Alkaline Phosphatase 91 (34-104) Units/L Albumin 2.3 L (3.5-5.7) g/dL - Attending Attestation I have personally seen and examined the patient. I have reviewed pertinent labs , imaging, progress notes, including this one. I agree with the above assessment and plan and wish to include the following... AF VSS; abd soft, ATTP; non peritonea; incision - C/D/I;l tolerating diet; good UOP with williamson; OOBTC; cont with current diet, activity regimen; cont current pain control; will simply progress at the pace his body will recuperate; naresh d/c clay in AM
[2017-07-28] MEDS: Leptospermum Honey Paste 44 ML TUBE TP SCH ×2 (01:57→09:18)
[2017-07-28 02:31] LABS: BUN/Creatinine Ratio 17 (6-26); Blood Urea Nitrogen 14 mg/dL (8-23); Calcium 8.4 mg/dL (8.6-10.3); Carbon Dioxide 34 mEq/L (23-29); Chloride 99 mEq/L (98-107); Glucose 91 mg/dL (70-105); Osmolality,Calculated 284 (280-300); Potassium 3.7 mEq/L (3.5-5.1); Sodium 137 mEq/L (136-145); eGFR For African Americans > 60 (> 60); eGFR For Non-African Americans > 60 (> 60)
[2017-07-28] MEDS: Ipratropium/Albuterol Neb 3 ML IH PRN ×2 (04:29→16:31)
[2017-07-28 08:58] LABS: Basophils % 0.4 %; Eosinophils # 0.1 K/mcL (0.0-0.6); Eosinophils % 1.3 %; Hematocrit 32.1 % (37.5-50.1); Hemoglobin 9.4 g/dL (12.9-16.9); Immature Granulocytes % 0.5 % (0-4); Lymphocytes # 1.5 K/mcL (0.6-4.6); Lymphocytes % 15.3 %; Mean Corpuscular HGB Conc 29.3 g/dL (31.6-35.5); Mean Corpuscular Volume 81.9 fL (83.0-100.0); Mean Platelet Volume 10.6 fL (9.4-12.4); Monocytes # 0.9 K/mcL (0.0-1.3); Monocytes % 8.8 %; Neutrophils # 7.3 K/mcL (1.6-8.9); Platelet Count 404 K/mcL (140-400); Red Blood Count 3.92 M/mcL (4.19-5.50); Red Cell Distribution Width 23.1 % (11.5-14.5); Segmented Neutrophils % 73.7 %
[2017-07-28] MEDS: Furosemide 20 MG/2 ML VIAL IVP SCH ×2 (09:16→17:58)
[2017-07-28] MEDS: Insulin LISPRO 300 UNITS/3 ML VIAL SQ SCH ×4 (09:16→20:14)
[2017-07-28] MEDS: Potassium Chloride Elixir 20 MEQ/15 ML UDC PO SCH ×2 (09:17→20:16)
[2017-07-28] MEDS: Aspirin Enteric Coated 81 MG Tablet PO SCH (09:17)
[2017-07-28] MEDS: Pantoprazole 40 MG VIAL IVP SCH (09:17)
[2017-07-28] MEDS: Metoprolol XL (24 HR) Succ 25 MG TAB.ER.24H PO SCH (09:17)
[2017-07-28] MEDS: Artificial Tears SOLN 15 ML BOTTLE BOTH EYES SCH ×4 (09:33→20:10)
--- NOTE | 2017-07-28 09:39 | Internal Med Progress Note ---
Date of Encounter: 07/28/17 Time of Encounter: 09:35 - Assessment and plan (1) PAF (paroxysmal atrial fibrillation) Current Visit: Yes Status: Chronic Assessment and plan: A. fib with RVR possibly triggered by sepsis secondary to gram-negative pneumonia/healthcare assisted pneumonia present upon admission, volume overload with bilateral pleural effusions and possible anasarca . Was on diltiazem drip for rate control, now off the Cardizem drip Toprol was started Anticoagulation will be held due to possible GI bleed. Patient is currently on Plavix and aspirin. (2) Acute blood loss anemia Current Visit: Yes Status: Acute Assessment and plan: Acute blood loss anemia, unknown source, consider possible GI bleed, not actively bleeding Hemoccult positive on 07/12/2017 Patient requires dual antiplatelet therapy Surgery/ Dr Kiki not recommending endoscopy GI was consulted but not available during the weekend Discontinue Protonix IV, may continue omeprazole (3) GI bleed Current Visit: Yes Status: Acute Assessment and plan: Patient is on Plavix and ASA due to recent stent placement, requiring dual antiplatelet therapy continue to monitor the patient's hemoglobin and hematocrit Qualifiers: GI bleed type/associated pathology: gastritis Gastritis type: acute gastritis Qualified Code(s): K29.01 - Acute gastritis with bleeding (4) Pneumonia Current Visit: Yes Status: Acute Assessment and plan: Healthcare associated pneumonia present upon admission Continue with Zosyn Day 7 Most recent CXR showed: Patchy parenchymal airspace disease, slightly worse in the right lower lobe concerning for worsening pneumonia. There is slight improvement in left effusion Qualifiers: Pneumonia type: due to unspecified organism Laterality: unspecified laterality Lung location: unspecified part of lung Qualified Code(s): J18.9 - Pneumonia, unspecified organism (5) Systolic heart failure Current Visit: Yes Status: Chronic Assessment and plan: Patient has a known history of congestive heart failure. Last echocardiogram showed LVEF 35-40%. Moderate global and segmental left ventricular systolic dysfunction. Severe pulmonary hypertension. No significant valvular dysfunction. Increased dose of Lasix up to 40 mg IV twice a day Qualifiers: Heart failure chronicity: acute on chronic Qualified Code(s): I50.23 - Acute on chronic systolic (congestive) heart failure (6) Urinary retention due to benign prostatic hyperplasia Current Visit: Yes Status: Suspected Assessment and plan: Ta (7) Atrial fibrillation with rapid ventricular response Current Visit: No Status: Acute (8) Sepsis Current Visit: No Status: Acute Assessment and plan: Had a WBC of 17.1 Episodes of tachycardia Possibly secondary to pneumonia Continue with zosyn Qualifiers: Sepsis type: sepsis due to unspecified organism Qualified Code(s): A41.9 - Sepsis, unspecified organism - Subjective Interval history: Feeling less short of breath, weak, has not noticed any episodes of bleeding. Denies any abdominal pain, no dysuria or diarrhea. No chest pain - Constitutional Vitals: Temp Pulse Resp BP Pulse Ox 99.2 F 86 16 115/63 98 07/28/17 06:55 07/28/17 06:55 07/28/17 06:55 07/28/17 06:55 07/28/17 06:55 General appearance: Present: mild distress, A&O X 3 Exam: General appearance: Present: mild distress, A&O X 3 Exam: - Head Head exam: Present: atraumatic, normocephalic - Neck Neck exam general surgery: Present: full ROM, normal inspection, trachea midline - Respiratory Respiratory exam: Present: rhonchi (bilaterally) - Cardiovascular Cardiovascular exam: Present: irregular rhythm, +S1, +S2 - GI/Abdominal GI/Abdominal exam: Present: diminished bowel sounds, soft. Absent: tenderness, no peritoneal signs Additional comments: Patient is surgical dressing over midline of the abdomen. - Extremities Exam Extremities exam: Present: pedal edema (2+ pitting edema in bilateral lower extremities) Additional comments: Patient has some swelling and fluid in the right upper extremity. - Neurological Exam Neurological exam: Present: oriented X3, no focal deficits. Absent: facial droop, speech deficit - Psychiatric Psychiatric exam: Present: normal affect, normal mood - Skin Skin exam: Present: dry, warm Stage II sacral pressure ulcer Ta catheter during place Internal Medicine: Result - Labs CBC & Chem 7: 07/28/17 08:30 07/28/17 01:57 Labs: Short CBC 07/28/17 Range/Units 08:30 WBC 9.9 (4.3-11.1) K/mcL Hgb 9.4 L (12.9-16.9) g/dL Hct 32.1 L (37.5-50.1) % Plt Count 404 H (140-400) K/mcL BMP 07/28/17 01:57 Sodium 137 Potassium 3.7 Chloride 99 Carbon Dioxide 34 H BUN 14 Creatinine 0.81 Glucose 91 Calcium 8.4 L - ABG Interpretation ABG results: PT/INR, D-dimer PT 21.4 Seconds (9.4-12.1) H D 07/19/17 17:10 - VTE Reasons for not Prescribing Prophylaxis: Not indicated-Anticoagulated or INR therapeutic Documentation of Mechanical Device: Intermittent pneumatic compression device Consult Discharge Plan - Plan Instructions: Bowel Resection (DC) Additional Instructions: General Surgical Discharge Instructions 1. No pushing, pulling, or lifting greater than 15 lbs for 6 weeks (depending upon procedure). 2. You may shower beginning today, but no tub baths, soaking, or swimming for 2 weeks. 3. You may resume driving when you are off narcotics and are safe to react in a car. 4. Take ibuprofen every 8 hours if needed for discomfort. If this does not relieve discomfort, you may take the as needed Percocet. Take narcotics only as directed. Do not take more narcotics then directed and do not share your narcotics with any other person. Do not drink alcohol while on narcotics. 5. Take stool softeners (Colace) or a water based laxative (Miralax) while taking narcotics. You may hold for loose stools. 6. Report any fevers greater than 100.5F, increase abdominal discomfort, drainage that looks like pus, increased redness or pain at the surgical site, or any vomiting. 7. Report any pain in the calves, shortness of breath, or rapid heartbeat. 8. Follow-up in the office as directed. 9. If you were prescribed antibiotics, do not stop them without talking to your provider. Referrals: Dane Justin MD [Primary Care Provider] -
[2017-07-28 10:07] LABS: Anisocytosis 1+ (Not Present); Platelet Estimate Normal (Normal); Polychromasia 1+ (Not Present)
[2017-07-28] MEDS: Budesonide/Formoterol 160/4.5 MDI IH SCH ×2 (10:58→19:43)
[2017-07-28] MEDS: *HR* LORazepam 0.5 MG TABLET PO PRN ×3 (11:41→22:41)
--- NOTE | 2017-07-28 13:11 | General Surgery Progress Note ---
<Tara Marti - Last Filed: 07/28/17 13:09> Date of Encounter: 07/28/17 Time of Encounter: 09:00 - Assessment and Plan (1) Incisional hernia of anterior abdominal wall with obstruction Current Visit: Yes Status: Acute POD # 15 #1 repair of incisional hernia #2 small bowel resection with Dr. Swanson -Patient with flatus and bowel movement, good bowel sounds. Benign abdominal exam without nausea or vomitting. -Patient's incision clean dry and intact. WBC 9. -Hemoglobin 9.4 today, up from 8.2 yesterday -No need for endoscopy at this time as patient is stable. -Increase activity as tolerated, PT/OT following. -Patient with good Williamson output. Upon discussion with the patient today that we wanted to remove the Williamson catheter, patient stated he did not want to have the Williamson catheter removed. We offered him a condom catheter, which he refused. He stated he feels like he has to go the bathroom every 5 minutes, we explained that that was probably secondary to the Williamson. He was adamant that he was aware of the risk associated with keeping an indwelling Williamson catheter in the hospital such as infection. Patient still stated that he desired to keep the Williamson catheter in place. Will revisit tomorrow. -We will continue to follow. Subjective Patient reports: no new complaints, feels better, pain is less, tolerating liquids well, flatus, bowel movement, shortness of breath, afebrile Objective Vital Signs - Last 8 Hours Temp Pulse Resp BP Pulse Ox 07/28/17 11:39 98.8 F 87 16 120/74 97 07/28/17 06:55 99.2 F 86 16 115/63 98 Intake and Output 07/27/17 07/28/17 07/28/17 23:59 07:59 15:59 Intake Total 1020 / 1020 900 / 900 120 / 120 Output Total 1550 / 1550 1400 / 1400 1050 / 1050 Balance -530 / -530 -500 / -500 -930 / -930 Intake: IV Fluids 100 / 100 100 / 100 Zosyn 3.375 GM In 0.9 % Sodium 100 / 100 100 / 100 Chloride 100 ML @ 25 mls/hr IVPB Q8H [facility] [place] Rx#:[id number] Oral 920 / 920 800 / 800 120 / 120 Output: Urine 1200 / 1200 Catheter 350 / 350 1400 / 1400 1050 / 1050 Other: Meal Lunch Breakfast Percent of Meal Consumed 10% 0% Stool Size Small Large Stool Consistency liquid soft soft Stool Color Brown Brown # Bowel Movements 1 Weight 68.7 kg Blood Glucose* 137 99 124 Patient Weight 07/28/17 23:59 Weight 68.7 kg - General physical appearance well developed, well nourished, no distress - ENT normal pinna, normal nares, normal mucosa, no congestion - Neck Neck exam: no masses, trachea midline - Respiratory normal expansion, normal respiratory effort, clear to percussion, clear to auscultation - Cardiovascular Cardiovascular exam: Present: RRR, no murmurs/rubs/gallops - Abdomen Abdomen: Present: bowel sounds present, soft, non tender Hernia: none - Incision Incision: Present: clean and dry, intact - Neurologic CN 2-12 grossly intact, normal coordination, normal sensation - Psychiatric oriented to time, oriented to person, oriented to place, memory intact - Labs 07/28/17 08:30 07/28/17 01:57 Diabetes panel 07/28/17 Range/Units 01:57 Sodium 137 (136-145) mEq/L Potassium 3.7 (3.5-5.1) mEq/L Chloride 99 (98-107) mEq/L Carbon Dioxide 34 H (23-29) mEq/L BUN 14 (8-23) mg/dL Creatinine 0.81 (0.70-1.30) mg/dL Glucose 91 (70-105) mg/dL Calcium 8.4 L (8.6-10.3) mg/dL Calcium panel 07/28/17 Range/Units 01:57 Calcium 8.4 L (8.6-10.3) mg/dL Pituitary panel 07/28/17 Range/Units 01:57 Sodium 137 (136-145) mEq/L Potassium 3.7 (3.5-5.1) mEq/L Chloride 99 (98-107) mEq/L Carbon Dioxide 34 H (23-29) mEq/L BUN 14 (8-23) mg/dL Creatinine 0.81 (0.70-1.30) mg/dL Glucose 91 (70-105) mg/dL Calcium 8.4 L (8.6-10.3) mg/dL Adrenal panel 07/28/17 Range/Units 01:57 Sodium 137 (136-145) mEq/L Potassium 3.7 (3.5-5.1) mEq/L Chloride 99 (98-107) mEq/L Carbon Dioxide 34 H (23-29) mEq/L BUN 14 (8-23) mg/dL Creatinine 0.81 (0.70-1.30) mg/dL Glucose 91 (70-105) mg/dL Calcium 8.4 L (8.6-10.3) mg/dL - VTE Reasons for not Prescribing Prophylaxis: Not indicated-Anticoagulated or INR therapeutic Documentation of Mechanical Device: Intermittent pneumatic compression device Consult Discharge Plan - Plan Instructions: Bowel Resection (DC) Additional Instructions: General Surgical Discharge Instructions 1. No pushing, pulling, or lifting greater than 15 lbs for 6 weeks (depending upon procedure). 2. You may shower beginning today, but no tub baths, soaking, or swimming for 2 weeks. 3. You may resume driving when you are off narcotics and are safe to react in a car. 4. Take ibuprofen every 8 hours if needed for discomfort. If this does not relieve discomfort, you may take the as needed Percocet. Take narcotics only as directed. Do not take more narcotics then directed and do not share your narcotics with any other person. Do not drink alcohol while on narcotics. 5. Take stool softeners (Colace) or a water based laxative (Miralax) while taking narcotics. You may hold for loose stools. 6. Report any fevers greater than 100.5F, increase abdominal discomfort, drainage that looks like pus, increased redness or pain at the surgical site, or any vomiting. 7. Report any pain in the calves, shortness of breath, or rapid heartbeat. 8. Follow-up in the office as directed. 9. If you were prescribed antibiotics, do not stop them without talking to your provider. Referrals: Dane Justin MD [Primary Care Provider] - <Rashaun Payton - Last Filed: 07/28/17 19:33> Date of Encounter: 07/28/17 Objective Vital Signs - Last 8 Hours Temp Pulse Resp BP Pulse Ox 07/28/17 16:31 18 96 07/28/17 15:56 98.2 F 83 16 107/61 97 07/28/17 15:21 97 02/18/18 11:39 98.8 F 87 16 120/74 97 Intake and Output 07/28/17 07/28/17 07/28/17 07:59 15:59 23:59 Intake Total 900 / 900 340 / 340 Output Total 1400 / 1400 1700 / 1700 200 / 200 Balance -500 / -500 -1360 / -1360 -200 / -200 Intake: IV Fluids 100 / 100 100 / 100 Zosyn 3.375 GM In 0.9 % Sodium 100 / 100 100 / 100 Chloride 100 ML @ 25 mls/hr IVPB Q8H [facility] [place] Rx#:[id number] Oral 800 / 800 240 / 240 Output: Urine 200 / 200 Catheter 1400 / 1400 1700 / 1700 Other: Meal Lunch Percent of Meal Consumed 35% Stool Size Small Large Stool Consistency liquid soft soft Stool Color Brown Brown # Bowel Movements 1 Weight 68.7 kg Blood Glucose* 99 124 123 Patient Weight 07/28/17 23:59 Weight 68.7 kg - Labs 07/28/17 08:30 07/28/17 01:57 Diabetes panel 07/28/17 Range/Units 01:57 Sodium 137 (136-145) mEq/L Potassium 3.7 (3.5-5.1) mEq/L Chloride 99 (98-107) mEq/L Carbon Dioxide 34 H (23-29) mEq/L BUN 14 (8-23) mg/dL Creatinine 0.81 (0.70-1.30) mg/dL Glucose 91 (70-105) mg/dL Calcium 8.4 L (8.6-10.3) mg/dL Calcium panel 07/28/17 Range/Units 01:57 Calcium 8.4 L (8.6-10.3) mg/dL Pituitary panel 07/28/17 Range/Units 01:57 Sodium 137 (136-145) mEq/L Potassium 3.7 (3.5-5.1) mEq/L Chloride 99 (98-107) mEq/L Carbon Dioxide 34 H (23-29) mEq/L BUN 14 (8-23) mg/dL Creatinine 0.81 (0.70-1.30) mg/dL Glucose 91 (70-105) mg/dL Calcium 8.4 L (8.6-10.3) mg/dL Adrenal panel 02/18/18 Range/Units 01:57 Sodium 137 (136-145) mEq/L Potassium 3.7 (3.5-5.1) mEq/L Chloride 99 (98-107) mEq/L Carbon Dioxide 34 H (23-29) mEq/L BUN 14 (8-23) mg/dL Creatinine 0.81 (0.70-1.30) mg/dL Glucose 91 (70-105) mg/dL Calcium 8.4 L (8.6-10.3) mg/dL - Attending Attestation I have personally seen and examined the patient. I have reviewed pertinent labs , imaging, progress notes, including this one. I agree with the above assessment and plan and wish to include the following... AF VSS; non peritoneal on exam; tolerating diet; OOBTC; diet and activity as tolerated; cont with PT/OT; discussed with patient concerning williamson catheter; he wishes to keep the williamson at present despite explaining risks and concerns;
[2017-07-28] MEDS: *HR* OxyCODONE/APAP 7.5/325 TABLET PO PRN (14:48)
[2017-07-28] MEDS: Ondansetron 4 MG/2 ML VIAL IVP PRN (20:38)
[2017-07-29] MEDS: *HR* OxyCODONE/APAP 7.5/325 TABLET PO PRN ×2 (03:47→13:52)
[2017-07-29 05:38] LABS: Basophils % 0.3 %; Eosinophils # 0.1 K/mcL (0.0-0.6); Eosinophils % 1.2 %; Hematocrit 29.2 % (37.5-50.1); Hemoglobin 8.7 g/dL (12.9-16.9); Immature Granulocytes % 0.6 % (0-4); Lymphocytes # 1.4 K/mcL (0.6-4.6); Lymphocytes % 15.9 %; Mean Corpuscular HGB Conc 29.8 g/dL (31.6-35.5); Mean Corpuscular Hemoglobin 24.2 pg (28.0-33.3); Mean Corpuscular Volume 81.1 fL (83.0-100.0); Mean Platelet Volume 10.6 fL (9.4-12.4); Monocytes # 0.8 K/mcL (0.0-1.3); Monocytes % 9.6 %; Neutrophils # 6.3 K/mcL (1.6-8.9); Platelet Count 391 K/mcL (140-400); Red Cell Distribution Width 23.1 % (11.5-14.5); Segmented Neutrophils % 72.4 %
[2017-07-29 06:00] LABS: BUN/Creatinine Ratio 18 (6-26); Blood Urea Nitrogen 13 mg/dL (8-23); Calcium 8.2 mg/dL (8.6-10.3); Carbon Dioxide 32 mEq/L (23-29); Chloride 98 mEq/L (98-107); Glucose 94 mg/dL (70-105); Osmolality,Calculated 282 (280-300); Potassium 3.3 mEq/L (3.5-5.1); Sodium 136 mEq/L (136-145); eGFR For African Americans > 60 (> 60); eGFR For Non-African Americans > 60 (> 60)
[2017-07-29 06:23] LABS: Anisocytosis 1+ (Not Present); Hypochromasia Present (Not Present); Microcytosis Present (Not Present)
[2017-07-29 06:24] LABS: Platelet Estimate Normal (Normal); Polychromasia 1+ (Not Present)
--- NOTE | 2017-07-29 08:02 | General Surgery Progress Note ---
<Tara Marti H - Last Filed: 07/29/17 07:56> Date of Encounter: 07/29/17 Time of Encounter: 07:56 - Assessment and Plan (1) Incisional hernia of anterior abdominal wall with obstruction Current Visit: Yes Status: Acute POD # 16 #1 repair of incisional hernia #2 small bowel resection with Dr. Swanson -Patient with flatus and bowel movement, good bowel sounds. Benign abdominal exam without nausea or vomitting. -Patient's incision clean dry and intact. WBC 8.7. -Hemoglobin 8.7 today, up from 9.4 yesterday -Increase activity as tolerated, PT/OT following. -Ta D/C'd yesterday per primary team. Patient with no complaints about voiding. Will re-start home flomax. -Patient stable for discharge to [facility]/Rehab today per primary team. -Surgery to sign off. Thank you for involving us in the care of this patient. Patient to FU with Carlita Mccabe on August 13. Subjective Patient reports: no new complaints, feels better, tolerating a regular diet, voiding w/o difficulty, flatus, bowel movement, afebrile Objective Vital Signs - Last 8 Hours Temp Pulse Resp BP Pulse Ox 07/29/17 06:40 97.9 F 79 16 125/64 97 07/29/17 03:48 98.6 F 87 18 101/69 95 Intake and Output 07/28/17 07/28/17 07/29/17 15:59 23:59 07:59 Intake Total 340 / 340 100 / 100 60 / 60 Output Total 1700 / 1700 710 / 710 50 / 50 Balance -1360 / -1360 -610 / -610 10 / 10 Intake: IV Fluids 100 / 100 100 / 100 Zosyn 3.375 GM In 0.9 % Sodium 100 / 100 100 / 100 Chloride 100 ML @ 25 mls/hr IVPB Q8H [facility] Rx#:[id number] Oral 240 / 240 0 / 0 60 / 60 Output: Urine 710 / 710 50 / 50 Catheter 1700 / 1700 Other: Meal Lunch Percent of Meal Consumed 35% Stool Size Large Large Stool Consistency soft liquid Stool Color Brown # Voids 0 0 # Bowel Movements 1 Weight 64.2 kg Blood Glucose* 124 165 89 Patient Weight 07/29/17 23:59 Weight 64.2 kg - General physical appearance well developed, well nourished - ENT no congestion - Neck Neck exam: trachea midline, no venous distension - Respiratory normal expansion, normal respiratory effort, clear to percussion, clear to auscultation - Cardiovascular Cardiovascular exam: Present: irregular rhythm, no murmurs/rubs/gallops - Abdomen Abdomen: Present: bowel sounds present, soft, non tender Hernia: none - Incision Incision: Present: clean and dry, intact - Genitourinary normal penis with no external lesions, other (Edema of scrotom markedly decreased) - Integumentary no rash - Neurologic CN 2-12 grossly intact, normal coordination, normal sensation - Psychiatric oriented to time, oriented to person, oriented to place, speech is normal, memory intact - Labs 07/29/17 04:43 07/29/17 04:43 Diabetes panel 07/29/17 Range/Units 04:43 Sodium 136 (136-145) mEq/L Potassium 3.3 L (3.5-5.1) mEq/L Chloride 98 (98-107) mEq/L Carbon Dioxide 32 H (23-29) mEq/L BUN 13 (8-23) mg/dL Creatinine 0.73 (0.70-1.30) mg/dL Glucose 94 (70-105) mg/dL Calcium 8.2 L (8.6-10.3) mg/dL Calcium panel 07/29/17 Range/Units 04:43 Calcium 8.2 L (8.6-10.3) mg/dL Pituitary panel 07/29/17 Range/Units 04:43 Sodium 136 (136-145) mEq/L Potassium 3.3 L (3.5-5.1) mEq/L Chloride 98 (98-107) mEq/L Carbon Dioxide 32 H (23-29) mEq/L BUN 13 (8-23) mg/dL Creatinine 0.73 (0.70-1.30) mg/dL Glucose 94 (70-105) mg/dL Calcium 8.2 L (8.6-10.3) mg/dL Adrenal panel 07/29/17 Range/Units 04:43 Sodium 136 (136-145) mEq/L Potassium 3.3 L (3.5-5.1) mEq/L Chloride 98 (98-107) mEq/L Carbon Dioxide 32 H (23-29) mEq/L BUN 13 (8-23) mg/dL Creatinine 0.73 (0.70-1.30) mg/dL Glucose 94 (70-105) mg/dL Calcium 8.2 L (8.6-10.3) mg/dL - VTE Reasons for not Prescribing Prophylaxis: Not indicated-Anticoagulated or INR therapeutic Documentation of Mechanical Device: Intermittent pneumatic compression device Consult Discharge Plan - Plan Instructions: Heart Failure (DC), Atrial Fibrillation (DC), Pacemaker (DC), Bowel Resection (DC), Anemia (GEN), Pneumonia (DC) Additional Instructions: General Surgical Discharge Instructions 1. No pushing, pulling, or lifting greater than 15 lbs for 6 weeks (depending upon procedure). 2. You may shower beginning today, but no tub baths, soaking, or swimming for 2 weeks. 3. You may resume driving when you are off narcotics and are safe to react in a car. 4. Take ibuprofen every 8 hours if needed for discomfort. If this does not relieve discomfort, you may take the as needed Percocet. Take narcotics only as directed. Do not take more narcotics then directed and do not share your narcotics with any other person. Do not drink alcohol while on narcotics. 5. Take stool softeners (Colace) or a water based laxative (Miralax) while taking narcotics. You may hold for loose stools. 6. Report any fevers greater than 100.5F, increase abdominal discomfort, drainage that looks like pus, increased redness or pain at the surgical site, or any vomiting. 7. Report any pain in the calves, shortness of breath, or rapid heartbeat. 8. Follow-up in the office as directed. 9. If you were prescribed antibiotics, do not stop them without talking to your provider. Wound Packing Instructions: Remove dressing and packing daily. Shower with antibacterial soap. Repack for 1/4 inch gauze for wicking purposes and cover with a dry dressing, taped and secure. Please follow up with her primary care provider at next available appointment. Please follow up with surgery as scheduled per surgery team. Please take all medications as prescribed. Referrals: Dane Justin MD [Primary Care Provider] - Carlita Mccabe CNP [Advanced Practice Nurse] - Prescriptions: Amiodarone [Cordarone] 200 mg PO DAILY #30 tablet <Dane Swanson - Last Filed: 07/29/17 10:32> Date of Encounter: 07/29/17 - Assessment and Plan (1) Anemia Current Visit: Yes Status: Acute Qualifiers: Qualified Code(s): D62 - Acute posthemorrhagic anemia Objective Vital Signs - Last 8 Hours Temp Pulse Resp BP Pulse Ox 07/29/17 08:21 16 96 07/29/17 06:40 97.9 F 79 16 125/64 97 07/29/17 03:48 98.6 F 87 18 101/69 95 Intake and Output 07/28/17 07/29/17 07/29/17 23:59 07:59 15:59 Intake Total 100 / 100 60 / 60 480 / 480 Output Total 710 / 710 150 / 150 225 / 225 Balance -610 / -610 -90 / -90 255 / 255 Intake: IV Fluids 100 / 100 Zosyn 3.375 GM In 0.9 % Sodium 100 / 100 Chloride 100 ML @ 25 mls/hr IVPB Q8H [facility] Rx#:[id number] Oral 0 / 0 60 / 60 480 / 480 Output: Urine 710 / 710 150 / 150 225 / 225 Other: Meal Breakfast Percent of Meal Consumed 0% Stool Size Large Stool Consistency liquid # Voids 0 0 # Bowel Movements 1 Weight 64.2 kg Blood Glucose* 165 89 Patient Weight 07/29/17 23:59 Weight 64.2 kg - Labs 07/29/17 04:43 07/29/17 04:43 Diabetes panel 07/29/17 Range/Units 04:43 Sodium 136 (136-145) mEq/L Potassium 3.3 L (3.5-5.1) mEq/L Chloride 98 (98-107) mEq/L Carbon Dioxide 32 H (23-29) mEq/L BUN 13 (8-23) mg/dL Creatinine 0.73 (0.70-1.30) mg/dL Glucose 94 (70-105) mg/dL Calcium 8.2 L (8.6-10.3) mg/dL Calcium panel 07/29/17 Range/Units 04:43 Calcium 8.2 L (8.6-10.3) mg/dL Pituitary panel 07/29/17 Range/Units 04:43 Sodium 136 (136-145) mEq/L Potassium 3.3 L (3.5-5.1) mEq/L Chloride 98 (98-107) mEq/L Carbon Dioxide 32 H (23-29) mEq/L BUN 13 (8-23) mg/dL Creatinine 0.73 (0.70-1.30) mg/dL Glucose 94 (70-105) mg/dL Calcium 8.2 L (8.6-10.3) mg/dL Adrenal panel 07/29/17 Range/Units 04:43 Sodium 136 (136-145) mEq/L Potassium 3.3 L (3.5-5.1) mEq/L Chloride 98 (98-107) mEq/L Carbon Dioxide 32 H (23-29) mEq/L BUN 13 (8-23) mg/dL Creatinine 0.73 (0.70-1.30) mg/dL Glucose 94 (70-105) mg/dL Calcium 8.2 L (8.6-10.3) mg/dL - Attending Attestation I examined this patient and my medical decision-making was reviewed with the Resident Physician. I agree with the documented findings, disposition and treatment plan as described except to the extent set forth below. The patient is seen and evaluated on morning rounds with the resident. He has normal bowel function. Ta catheter has been removed. She is having some frequency and hesitancy. We should restart his Flomax. At this point I think he is stable for transfer to rehabilitation. Dane Swanson MD FACS
[2017-07-29] MEDS: Budesonide/Formoterol 160/4.5 MDI IH SCH (08:19)
[2017-07-29] MEDS: Furosemide 20 MG/2 ML VIAL IVP SCH ×2 (09:10→17:02)
[2017-07-29] MEDS: Metoprolol XL (24 HR) Succ 25 MG TAB.ER.24H PO SCH (09:10)
[2017-07-29] MEDS: Aspirin Enteric Coated 81 MG Tablet PO SCH (09:10)
[2017-07-29] MEDS: Artificial Tears SOLN 15 ML BOTTLE BOTH EYES SCH ×3 (09:10→17:01)
[2017-07-29] MEDS: Insulin LISPRO 300 UNITS/3 ML VIAL SQ SCH ×3 (09:10→17:01)
[2017-07-29] MEDS: Leptospermum Honey Paste 44 ML TUBE TP SCH ×2 (09:11)
[2017-07-29] MEDS: Potassium Chloride Elixir 20 MEQ/15 ML UDC PO SCH (09:13)
--- NOTE | 2017-07-29 09:38 | Discharge Summary ---
<Roland Cadena - Last Filed: 07/29/17 09:34> Date of Encounter: 07/29/17 Time of Encounter: 09:34 - Discharge Diagnosis (1) GI bleed Priority: Primary Status: Acute Qualifiers: GI bleed type/associated pathology: gastritis Gastritis type: acute gastritis Qualified Code(s): K29.01 - Acute gastritis with bleeding (2) Acute blood loss anemia Priority: Primary Status: Acute (3) Pneumonia Priority: Primary Status: Acute Qualifiers: Pneumonia type: due to unspecified organism Laterality: unspecified laterality Lung location: unspecified part of lung Qualified Code(s): J18.9 - Pneumonia, unspecified organism (4) Sepsis Priority: Primary Status: Acute Qualifiers: Sepsis type: sepsis due to unspecified organism Qualified Code(s): A41.9 - Sepsis, unspecified organism (5) CAD (coronary artery disease) Priority: Secondary Status: Chronic Qualifiers: Coronary Disease-Associated Artery/Lesion type: red devil artery [place] vs. transplanted heart: red devil heart Associated angina: without angina Qualified Code(s): I25.10 - Atherosclerotic heart disease of red devil coronary artery without angina pectoris (6) Status post small bowel resection Priority: Primary Status: Acute (7) PAF (paroxysmal atrial fibrillation) Priority: Primary Status: Chronic (8) Systolic heart failure Priority: Primary Status: Chronic Qualifiers: Heart failure chronicity: acute on chronic Qualified Code(s): I50.23 - Acute on chronic systolic (congestive) heart failure (9) Leukocytosis Priority: Primary Status: Acute Qualifiers: Leukocytosis type: unspecified Qualified Code(s): D72.829 - Elevated white blood cell count, unspecified (10) Hyperbilirubinemia Priority: Primary Status: Acute (11) Hypertension Priority: Secondary Status: Chronic Qualifiers: Hypertension type: essential hypertension Qualified Code(s): I10 - Essential (primary) hypertension (12) Sacral decubitus ulcer, stage II Priority: Primary Status: Acute (13) DVT prophylaxis Priority: Secondary Status: Acute - Discharge Medications Prescriptions: Amiodarone [Cordarone] 200 mg PO DAILY #30 tablet Home Medications: Clopidogrel [Plavix] 75 mg PO DAILY 01/25/16 [History] Omeprazole [PriLOSEC] 20 mg PO DAILY 01/25/16 [History] Atorvastatin [Lipitor] 40 mg PO HS 07/17/16 [History] Aspirin Enteric Coated [Aspirin EC] 81 mg PO DAILY #30 tablet. 07/27/16 [Rx] Fluticasone/Salmeterol [Advair 500-50 Diskus] 1 each IH BID 04/08/17 [History] Ipratropium/Albuterol Neb [Duoneb] 3 ml IH Q4-6H PRN 06/14/17 [History] Nitroglycerin [Nitrostat] 0.4 mg PO Q5M PRN 06/14/17 [History] Tamsulosin [Flomax] 0.4 mg PO BID 06/14/17 [History] Saliva Stimulant [Biotene Moisturizing Rinse] 1 spray PO Q6H PRN #1 bottle 06/21 [Rx] Sennosides/Docusate Sodium [Senna Plus] 2 each PO BID PRN #60 tablet 06/21/17 [ Rx] LORazepam [Ativan] 0.5 mg PO TID 07/12/17 [History] Potassium Chloride [Klor-Con 10] 10 meq PO DAILY 07/12/17 [History] Spironolactone [Aldactone] 25 mg PO DAILY 07/12/17 [History] Furosemide [Lasix] 20 mg PO BID 07/23/17 [History] Amiodarone [Cordarone] 200 mg PO DAILY #30 tablet 07/29/17 [Rx] Metoprolol XL (24 HR) Succ [Toprol Xl] 12.5 mg PO DAILY #0 tab.er.24h 07/29/17 [ Rx] Allergies/Adverse Reactions: 3 Allergy/AdvReac Type Severity Reaction Status Date / Time No Known Allergies Allergy Verified 04/08/17 10:06 Date of admission: 07/12/17 16:01 Primary care physician: Dane Justin MD Consults: 07/12/17 16:09 Consult to Pulmonology [CONS] Routine Consulting Provider: [facility] [place] Reason for Consult: copd moves air poorly does not follow with pulmonology Time Notified: 16:10 Call Completed: No 07/12/17 16:10 Consult to Surgery [CONS] Routine Consulting Provider: Dane Swanson Reason for Consult: gi bleed notified by ER Time Notified: 16:11 Call Completed: No 07/12/17 16:18 Consult to Cardiology [CONS] Routine Comment: Consulting Provider: Cardiology Anu Reason for Consult: atrial fib recently started on xarelto now Gi bleed also on plavix and asa Time Notified: 16:19 Call Completed: No 07/12/17 16:55 Consult to Nutrition [CONS] Routine Comment: Consulting Provider: NUTRITION Reason for Dietary Consult: MST Score 07/18/17 09:59 Consult to Wound Care [CONS] Stat Reason for Consult: new Decub ulcer stage II Call Completed: Yes 07/18/17 10:44 Consult to Occupational Therapy [CONS] Stat Comment: Evaluate, develop and implement POC Reason for Consult: Mobilization and d/c planning. Pt states he has only been out of bed x1. Consult to Physical Therapy [CONS] Stat Comment: Evaluate, develop and implement POC Reason for Consult: Mobilization and d/c planning. Pt states he has only been out of bed x1. 07/18/17 19:30 consult to embroidery patternmaker [Consult to Nutrition] [CONS] Routine Comment: Consulting Provider: NUTRITION Reason for Dietary Consult: TPN Start and Manage 07/19/17 05:39 Consult to Urology [CONS] Routine Consulting Provider: Urology Anu Reason for Consult: penile edema/phimosis Call Completed: No 07/19/17 12:03 Consult to Invasive Line Access Team [CONS] Routine Reason for Consult: Picc Line Insertion Line Type: PICC 07/19/17 12:22 Consult to Supervisor Audit Clerks [CONS] Routine Reason for SW Consult: d/c planning. Likely for Saturday. PT/OT recommends SNF/ ECF 07/25/17 11:31 Consult to Gastroenterology [CONS] Routine Consulting Provider: Gastroenterology Anu Reason for Consult: Possible gi bleed. Hemoglobin has been dropping Time Notified: 11:31 Call Completed: Yes Discharging clinician: Roland Cadena Anticipated date of discharge: 07/29/17 - Patient Status Disposition: Transfer SNF Condition: Good Overall status at discharge: patient is progressing back to baseline - Discharge Instructions Instructions: Heart Failure (DC), Atrial Fibrillation (DC), Pacemaker (DC), Bowel Resection (DC), Anemia (GEN), Pneumonia (DC) Follow Up With: Dane Justin MD [Primary Care Provider] - Carlita Mccabe CNP [Advanced Practice Nurse] - Forms: ED Satisfaction Letter, Work/School Release Additional Instructions: General Surgical Discharge Instructions 1. No pushing, pulling, or lifting greater than 15 lbs for 6 weeks (depending upon procedure). 2. You may shower beginning today, but no tub baths, soaking, or swimming for 2 weeks. 3. You may resume driving when you are off narcotics and are safe to react in a car. 4. Take ibuprofen every 8 hours if needed for discomfort. If this does not relieve discomfort, you may take the as needed Percocet. Take narcotics only as directed. Do not take more narcotics then directed and do not share your narcotics with any other person. Do not drink alcohol while on narcotics. 5. Take stool softeners (Colace) or a water based laxative (Miralax) while taking narcotics. You may hold for loose stools. 6. Report any fevers greater than 100.5F, increase abdominal discomfort, drainage that looks like pus, increased redness or pain at the surgical site, or any vomiting. 7. Report any pain in the calves, shortness of breath, or rapid heartbeat. 8. Follow-up in the office as directed. 9. If you were prescribed antibiotics, do not stop them without talking to your provider. Wound Packing Instructions: Remove dressing and packing daily. Shower with antibacterial soap. Repack for 1/4 inch gauze for wicking purposes and cover with a dry dressing, taped and secure. Please follow up with her primary care provider at next available appointment. Please follow up with surgery as scheduled per surgery team. Please take all medications as prescribed. - Diet and Activity Activity: increase activity as tolerated Diet: advance to your usual diet Interval History: Patient states that he is feeling quite a bit better today. He states that his catheter was removed yesterday and he has been getting used to having to urinate again. Patient states that he has not been out of bed much but has been able to get up and sit in the chair at breakfast. Hospital course: Mr. Yeung is a 82 year old male was admitted to the hospital on 07/12/17 for a possible GI bleed. On 07/13/17 the patient had a surgery with Dr. Swanson for a 10 cm small bowel resection and incisional hernia repair. The patient did develop a pneumonia requiring antibiotic therapy. Patient is received 7 days of Zosyn. Patient also had paroxysmal atrial fibrillation requiring diltiazem and Lopressor therapy. Diltiazem has been titrated down and discontinued but has remained on Lopressor for rate control. The patient had his Ta catheter discharged yesterday and patient states that he has been getting used to having to urinate again and has been using a urinal in the bed. Patient's hemoglobin stabilized and has not required any transfusions for over a week. Per surgery recommendation they did not feel that there was a need for endoscopy. The patient is significantly improved and his breathing is back to his baseline. He states that the Lasix is significantly improved his overall breathing and fluid retention. The patient will be discharged back to an [facility] for further care. - Time Spent with Patient Total time spent providing and/or coordinating discharge services: Greater than 30 minutes Specific discharge activities: 40 - Constitutional Vitals: Temp Pulse Resp BP Pulse Ox 97.9 F 79 16 125/64 96 07/29/17 06:40 07/29/17 06:40 07/29/17 08:21 07/29/17 06:40 07/29/17 08:21 General appearance: Present: mild distress, A&O X 3 - Head Head exam: Present: atraumatic, normocephalic - Neck Neck exam general surgery: Present: full ROM, normal inspection, trachea midline - Respiratory Respiratory exam: Present: rhonchi (Mild) - Cardiovascular Cardiovascular exam: Present: RRR, +S1, +S2. Absent: diastolic murmur, gallop, rubs, systolic murmur - GI/Abdominal GI/Abdominal exam: Present: diminished bowel sounds, soft. Absent: tenderness, no peritoneal signs Additional comments: Patient is surgical dressing over midline of abdomen. - Extremities Exam Extremities exam: Present: pedal edema (Patient has 1+ edema in bilateral lower extremities. This is significantly improved from previous) - Neurological Exam Neurological exam: Present: alert, oriented X3, no focal deficits. Absent: facial droop, speech deficit - Psychiatric Psychiatric exam: Present: normal affect, normal mood - Skin Skin exam: Present: dry, intact, warm - VTE Reasons for not Prescribing Prophylaxis: Not indicated-Anticoagulated or INR therapeutic Documentation of Mechanical Device: Intermittent pneumatic compression device <Tigre Peterson - Last Filed: 07/29/17 10:32> Date of Encounter: 07/29/17 - Discharge Diagnosis (1) PAF (paroxysmal atrial fibrillation) Status: Chronic (2) Acute blood loss anemia Status: Acute (3) GI bleed Status: Acute Qualifiers: GI bleed type/associated pathology: gastritis Gastritis type: acute gastritis Qualified Code(s): K29.01 - Acute gastritis with bleeding (4) Pneumonia Status: Acute Qualifiers: Pneumonia type: due to unspecified organism Laterality: unspecified laterality Lung location: unspecified part of lung Qualified Code(s): J18.9 - Pneumonia, unspecified organism (5) Systolic heart failure Status: Chronic Qualifiers: Heart failure chronicity: acute on chronic Qualified Code(s): I50.23 - Acute on chronic systolic (congestive) heart failure (6) Urinary retention due to benign prostatic hyperplasia Status: Suspected (7) Atrial fibrillation with rapid ventricular response Status: Acute (8) Sepsis Status: Acute Qualifiers: Sepsis type: sepsis due to unspecified organism Qualified Code(s): A41.9 - Sepsis, unspecified organism Date of admission: 07/12/17 16:01 Primary care physician: Dane Justin MD Consults: 07/12/17 16:09 Consult to Pulmonology [CONS] Routine Consulting Provider: Pulm [facility] Reason for Consult: copd moves air poorly does not follow with pulmonology Time Notified: 16:10 Call Completed: No 07/12/17 16:10 Consult to Surgery [CONS] Routine Consulting Provider: Dane Swanson Reason for Consult: gi bleed notified by ER Time Notified: 16:11 Call Completed: No 07/12/17 16:18 Consult to Cardiology [CONS] Routine Comment: Consulting Provider: Cardiology [place] Reason for Consult: atrial fib recently started on xarelto now Gi bleed also on plavix and asa Time Notified: 16:19 Call Completed: No 07/12/17 16:55 Consult to Nutrition [CONS] Routine Comment: Consulting Provider: NUTRITION Reason for Dietary Consult: MST Score 07/18/17 09:59 Consult to Wound Care [CONS] Stat Reason for Consult: new Decub ulcer stage II Call Completed: Yes 07/18/17 10:44 Consult to Occupational Therapy [CONS] Stat Comment: Evaluate, develop and implement POC Reason for Consult: Mobilization and d/c planning. Pt states he has only been out of bed x1. Consult to Physical Therapy [CONS] Stat Comment: Evaluate, develop and implement POC Reason for Consult: Mobilization and d/c planning. Pt states he has only been out of bed x1. 07/18/17 19:30 consult to embroidery patternmaker [Consult to Nutrition] [CONS] Routine Comment: Consulting Provider: NUTRITION Reason for Dietary Consult: TPN Start and Manage 07/19/17 05:39 Consult to Urology [CONS] Routine Consulting Provider: Urology Anu Reason for Consult: penile edema/phimosis Call Completed: No 07/19/17 12:03 Consult to Invasive Line Access Team [CONS] Routine Reason for Consult: Picc Line Insertion Line Type: PICC 07/19/17 12:22 Consult to Supervisor Audit Clerks [CONS] Routine Reason for SW Consult: d/c planning. Likely for Saturday. PT/OT recommends SNF/ ECF 07/25/17 11:31 Consult to Gastroenterology [CONS] Routine Consulting Provider: Gastroenterkathleen Brennan Reason for Consult: Possible gi bleed. Hemoglobin has been dropping Time Notified: 11:31 Call Completed: Yes Hospital course: Mr. Yeung is a 82 year old male - Time Spent with Patient Total time spent providing and/or coordinating discharge services: - Constitutional Vitals: Temp Pulse Resp BP Pulse Ox 97.9 F 79 16 125/64 96 07/29/17 06:40 07/29/17 06:40 07/29/17 08:21 07/29/17 06:40 07/29/17 08:21 - Attending Attestation Acute blood loss anemia, possibly combination of postsurgical anemia and GI source, not actively bleeding Dr. Thomas did not recommend any endoscopy or colonoscopy for now. Needs to follow-up with surgery. COrrection: Continue omeprazole 40 mg daily, avoid Ibuprofen. Time spent: 40 min I examined this patient and my medical decision-making was reviewed with the Resident Physician. I agree with the documented findings, disposition and treatment plan as described except to the extent set forth below.
--- NOTE | 2017-07-29 09:52 | Physician Discharge Referral ---
<Roland Cadena - Last Filed: 07/29/17 09:49> ExtendedCare Referral Info Transfer To: [facility] Provider in Charge after Transfer: PCP Institutional Level of Care: Skilled - Diagnosis (1) GI bleed Priority: Primary Status: Acute (2) Acute blood loss anemia Priority: Primary Status: Acute (3) Pneumonia Priority: Primary Status: Acute (4) Sepsis Priority: Primary Status: Acute (5) CAD (coronary artery disease) Priority: Secondary Status: Chronic (6) Status post small bowel resection Priority: Primary Status: Acute (7) PAF (paroxysmal atrial fibrillation) Priority: Primary Status: Chronic (8) Systolic heart failure Priority: Primary Status: Chronic (9) Leukocytosis Priority: Primary Status: Acute (10) Hyperbilirubinemia Priority: Primary Status: Acute (11) Hypertension Priority: Secondary Status: Chronic (12) Sacral decubitus ulcer, stage II Priority: Primary Status: Acute (13) DVT prophylaxis Priority: Secondary Status: Acute Prognosis: Good Aware of Diagnosis: Patient Aware of Prognosis: Patient - Transfer Medications Prescriptions: Amiodarone [Cordarone] 200 mg PO DAILY #30 tablet Home Medications: Clopidogrel [Plavix] 75 mg PO DAILY 01/25/16 [History] Omeprazole [PriLOSEC] 20 mg PO DAILY 01/25/16 [History] Atorvastatin [Lipitor] 40 mg PO HS 07/17/16 [History] Aspirin Enteric Coated [Aspirin EC] 81 mg PO DAILY #30 tablet. 07/27/16 [Rx] Fluticasone/Salmeterol [Advair 500-50 Diskus] 1 each IH BID 04/08/17 [History] Ipratropium/Albuterol Neb [Duoneb] 3 ml IH Q4-6H PRN 06/14/17 [History] Nitroglycerin [Nitrostat] 0.4 mg PO Q5M PRN 06/14/17 [History] Tamsulosin [Flomax] 0.4 mg PO BID 06/14/17 [History] Saliva Stimulant [Biotene Moisturizing Rinse] 1 spray PO Q6H PRN #1 bottle 06/21 [Rx] Sennosides/Docusate Sodium [Senna Plus] 2 each PO BID PRN #60 tablet 06/21/17 [ Rx] LORazepam [Ativan] 0.5 mg PO TID 07/12/17 [History] Potassium Chloride [Klor-Con 10] 10 meq PO DAILY 07/12/17 [History] Spironolactone [Aldactone] 25 mg PO DAILY 07/12/17 [History] Furosemide [Lasix] 20 mg PO BID 07/23/17 [History] Amiodarone [Cordarone] 200 mg PO DAILY #30 tablet 07/29/17 [Rx] Metoprolol XL (24 HR) Succ [Toprol Xl] 12.5 mg PO DAILY #0 tab.er.24h 07/29/17 [ Rx] Allergies/Adverse Reactions: 3 Allergy/AdvReac Type Severity Reaction Status Date / Time No Known Allergies Allergy Verified 04/08/17 10:06 - Respiratory Orders Oxygen / L per min (3L) Smoking Cessation: Smoking cessation has been advised. For more information, call the [place] [employer] Quit Line at 4-260-CCAA-NOW. - Lab Orders Lab Orders: CBC (1 week, Results to PCP) - Ancillary Orders May use pressure relief devices daily prn - Advance Directives Code Status: Full Code - Mobility Orders Ambulate (with assist) - Rehabiliation Orders Rehab Orders: Evaluation for Physical Therapy, Evaluation for Occupational Therapy - Treatments Skin tear care topically daily PRN per policy, May check for fecal impaction rectally daily PRN, Fleet enema rectally every other day PRN cleansing purposes List/Other: General Surgical Discharge Instructions 1. No pushing, pulling, or lifting greater than 15 lbs for 6 weeks (depending upon procedure). 2. You may shower beginning today, but no tub baths, soaking, or swimming for 2 weeks. 3. You may resume driving when you are off narcotics and are safe to react in a car. 4. Take ibuprofen every 8 hours if needed for discomfort. If this does not relieve discomfort, you may take the as needed Percocet. Take narcotics only as directed. Do not take more narcotics then directed and do not share your narcotics with any other person. Do not drink alcohol while on narcotics. 5. Take stool softeners (Colace) or a water based laxative (Miralax) while taking narcotics. You may hold for loose stools. 6. Report any fevers greater than 100.5F, increase abdominal discomfort, drainage that looks like pus, increased redness or pain at the surgical site, or any vomiting. 7. Report any pain in the calves, shortness of breath, or rapid heartbeat. 8. Follow-up in the office as directed. 9. If you were prescribed antibiotics, do not stop them without talking to your provider. Wound Packing Instructions: Remove dressing and packing daily. Shower with antibacterial soap. Repack for 1/4 inch gauze for wicking purposes and cover with a dry dressing, taped and secure. Please follow up with her primary care provider at next available appointment. Please follow up with surgery as scheduled per surgery team. Please take all medications as prescribed - Diet Orders Cardiac CERTIFICATION: I certify that the transfer of the above named patient to an Extended Care Facility is necessary for the continuing treatment of the diagnosis listed. The above information is true and accurate reflection of patient's current condition. Confidential - Redisclosure prohibited without a patient's written consent. <Tigre Peterson H - Last Filed: 07/29/17 10:32> - Diagnosis (1) PAF (paroxysmal atrial fibrillation) Status: Chronic (2) Acute blood loss anemia Status: Acute (3) GI bleed Status: Acute (4) Pneumonia Status: Acute (5) Systolic heart failure Status: Chronic (6) Urinary retention due to benign prostatic hyperplasia Status: Suspected (7) Atrial fibrillation with rapid ventricular response Status: Acute (8) Sepsis Status: Acute - Respiratory Orders Smoking Cessation: Smoking cessation has been advised. For more information, call the [place] [employer] Quit Line at 2-784-YUPM-NOW. CERTIFICATION: I certify that the transfer of the above named patient to an Extended Care Facility is necessary for the continuing treatment of the diagnosis listed. The above information is true and accurate reflection of patient's current condition. Confidential - Redisclosure prohibited without a patient's written consent. COrrection: Continue omeprazole 40 mg daily, avoid Ibuprofen. Time spent: 40 min I examined this patient and my medical decision-making was reviewed with the Resident Physician. I agree with the documented findings, disposition and treatment plan as described except to the extent set forth below.
[2017-07-29] MEDS: *HR* LORazepam 0.5 MG TABLET PO PRN (14:44)
[2017-07-29 16:20] VITALS: BP 110/68
== END 2017-07-29 18:08 | DRG 329 ==
LOC: EMEROO 12:44 → 2NENU 12:44 → SUATTDRO 16:01
PROVIDERS: ADMIT Hospitalist; ATTEND Internal Medicine

== ENCOUNTER 2018-12-10 10:20 | Inpatient (IN) ==
[2018-12-10] MEDS ORDERED: Albuterol 2.5 MG/3 ML NEBULIZER IH ONE (10:42)
[2018-12-10] MEDS ORDERED: Ringers Solution, Lactated 1,000 ML IVC SCH (10:45)
[2018-12-10] MEDS ORDERED: Clindamycin 600 MG/50 ML 600 MG/50 ML IV.SOLN IVPB ONE (11:42)
[2018-12-10] MEDS ORDERED: Famotidine 20 MG/2 ML VIAL IVP ONE (11:55)
[2018-12-10] MEDS ORDERED: Acetaminophen IV 1,000 MG/100 ML INFUS..BTL IVPB ONE (11:57)
--- NOTE | 2018-12-10 12:11 | Anesthesia Evaluation PreOp ---
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 ENGINEER History: Denies Any Significant HX Other Medical History: Other (Rheumatoid) Anesthesia History: No Prior Anesthetic Complications Alcohol Use: heavy Drug use: none Medications and Allergies Clopidogrel [Plavix] 75 mg PO QAM 01/25/16 [History] Omeprazole [PriLOSEC] 20 mg PO QAM 01/25/16 [History] Atorvastatin [Lipitor] 40 mg PO HS 07/17/16 [History] Fluticasone/Salmeterol [Advair 500-50 Diskus] 1 each IH BID 04/08/17 [History] Nitroglycerin [Nitrostat] 0.4 mg PO Q5M PRN 06/14/17 [History] Tamsulosin [Flomax] 0.4 mg PO BID 06/14/17 [History] LORazepam [Ativan] 0.5 mg PO HS PRN 07/12/17 [History] Spironolactone [Aldactone] 25 mg PO QAM 07/12/17 [History] Furosemide [Lasix] 20 mg PO BID 07/23/17 [History] Rivaroxaban [Xarelto] 20 mg PO HS 09/25/18 [History] Albuterol Neb [Proventil Neb] 2.5 mg PO Q6H PRN 12/10/18 [History] Ferrous Sulfate 325 mg PO QAM 12/10/18 [History] Lisinopril 2.5 mg PO QAM 12/10/18 [History] Metoprolol XL (24 HR) Succ [Toprol Xl] 12.5 mg PO QAM 12/10/18 [History] Allergy/AdvReac Type Severity Reaction Status Date / Time Amoxicillin Allergy Mild Rash Verified 12/10/18 11:45 - Meds/Allergy Pre-op Review Medications Reviewed: Yes Allergies Reviewed: Yes Beta Blockers on Current Med List: No Anesthesia Results - Labs Laboratory Tests 07/19/17 07/19/17 09/22/18 07:43 17:10 12:59 Hgb Hct Plt Count PT 21.4 H D INR 2.0 D APTT 71.6 H Sodium 135 L Potassium BUN 26 H Creatinine 11/24/18 11/24/18 11:10 11:10 Hgb 11.5 L Hct 35.3 L Plt Count 247 PT INR APTT Sodium Potassium 4.1 BUN Creatinine 0.87 - Imaging EKG: report reviewed (SR) Additional studies: ECHO 2019 EF 45% Anesthesia Exam O2 Sat Height 1.68 m Height 1.68 m Weight 63.503 kg Weight 63.503 kg O2 Sat by Pulse Oximetry 99 Vital Signs Temp Pulse Resp BP Pulse Ox 97.7 F 79 18 97/52 99 12/10/18 10:57 12/10/18 10:57 12/10/18 10:57 12/10/18 10:57 12/10/18 10:57 Height: 5'6 Weight: 140 lbs NPO (# of Hours): MN Pain Scale: 0 - HEENT Pupil (Motor): Pupils equal, EOMI Mallampati: III Denture Type: Upper: Complete Oral Opening: Less than or equal to 3 - PRINTING ENGINEER LOC: Oriented PRINTING ENGINEER Motor: Normal RUE, Normal LUE, Normal RLE, Normal LLE, Normal Face PRINTING ENGINEER Sensory: Normal: RUE, LUE, RLE, LLE, Face - Cardiac Rhythm: Regular Murmur: None JVD: No Carotid Bruit: No - Pulmonary Breath Sounds: bilateral Clear Respiratory Effort: Symmetrical Anesthesia Assess/Plan ASA Score: 4 (Cardiomyopathy CAD COPD home oxygen) Level of consciousness: Cooperative, Oriented Anesthetic Plan: General Monitoring Plan: Standard Monitors Recovery Plan: PACU (Discussed GA, A-Line, Central Line, risks, agrees to proceed)
[2018-12-10] MEDS ORDERED: *HR* Etomidate 40 MG/20 ML VIAL IVP ONE (13:17)
[2018-12-10] MEDS ORDERED: *HR* FentaNYL (PF) 100 MCG/2 ML VIAL ONE (13:17)
[2018-12-10] MEDS ORDERED: Ondansetron 4 MG/2 ML VIAL ONE (13:26)
[2018-12-10] MEDS ORDERED: Lidocaine -MPF 2% 2 ML VIAL ONE (13:26)
[2018-12-10] MEDS ORDERED: Dexamethasone 4 MG/ML VIAL ONE (13:26)
[2018-12-10] MEDS ORDERED: Lidocaine -MPF 4% 5 ML AMPUL ONE (14:00)
[2018-12-10] MEDS ORDERED: *HR* Rocuronium Bromide 50 MG/5 ML VIAL ONE (14:01)
--- NOTE | 2018-12-10 14:23 | General Surg History&Physical ---
Date of Encounter: 12/10/18 Time of Encounter: 14:20 Assessment and Plan (1) Wound, open, abdominal wall, anterior Current Visit: Yes Status: Acute Hua Yeung is a pleasant gentleman with mesh protruding through is abdominal wall. After a long discussion about surgical intervention, including the potential for an open abdomen, bowel injury, the patient is in agreement for surgery. okay to proceed with surgery. The assessment and plan as outlined above was discussed with the patient and/or family members who expressed understanding and agreement. All questions were answered. Qualifiers: Encounter type: initial encounter Qualified Code(s): S31.109A - Unspecified open wound of abdominal wall, unspecified quadrant without penetration into peritoneal cavity, initial encounter History of Present Illness Chief complaint: open wound, mesh protruding through abdominal wall HPI: he has an extensive history related to his vascular disease and most recently exploratory surgery related to a small bowel obstruction. He has had multiple surgeries related to his abdominal wall hernia with mesh placement. He now presents with mesh protruding through his abdominal wall. It does not cause discomfort, but, for obvious reasons, presents for surgical evaluation. Of note, imaging was obtained which appears to be mesh that is anchored to the fascia with tacks. No other pathology apprciated. Past Med Surg Social Fam HX - Past Medical History Medical history: arthritis, asthma, COPD, coronary artery disease, DVT, hyperlipidemia, hypertension, myocardial infarction, other Additional medical history: BPH, PVD, home 31/12 use Psychiatric history: no psych history - Past Surgical History Surgical History: herniorrhaphy, other Additional surgical history: femoral bypass, thombectomy, small bowel resection, - Social History Smoking Status: Former smoker Smokeless Tobacco Status: No Alcohol use: heavy Drug use: none - Family History Mother Adopted: No Living Status: Hx Family Respiratory Disorders: Yes Father Living Status: Hx Family Cancer: Yes Medications and Allergies Clopidogrel [Plavix] 75 mg PO QAM 01/25/16 [History] Omeprazole [PriLOSEC] 20 mg PO QAM 01/25/16 [History] Atorvastatin [Lipitor] 40 mg PO HS 07/17/16 [History] Fluticasone/Salmeterol [Advair 500-50 Diskus] 1 each IH BID 04/08/17 [History] Nitroglycerin [Nitrostat] 0.4 mg PO Q5M PRN 06/14/17 [History] Tamsulosin [Flomax] 0.4 mg PO BID 06/14/17 [History] LORazepam [Ativan] 0.5 mg PO HS PRN 07/12/17 [History] Spironolactone [Aldactone] 25 mg PO QAM 07/12/17 [History] Furosemide [Lasix] 20 mg PO BID 07/23/17 [History] Rivaroxaban [Xarelto] 20 mg PO HS 09/25/18 [History] Albuterol Neb [Proventil Neb] 2.5 mg PO Q6H PRN 12/10/18 [History] Ferrous Sulfate 325 mg PO QAM 12/10/18 [History] Lisinopril 2.5 mg PO QAM 12/10/18 [History] Metoprolol XL (24 HR) Succ [Toprol Xl] 12.5 mg PO QAM 12/10/18 [History] Allergy/AdvReac Type Severity Reaction Status Date / Time Amoxicillin Allergy Mild Rash Verified 12/10/18 11:45 Review of Systems All systems PM: 12 point ROS negative besides HPI findings General Surgery Exam Initial Vital Signs Temp Pulse Resp BP Pulse Ox 97.7 F 79 18 97/52 99 12/10/18 10:57 12/10/18 10:57 12/10/18 10:57 12/10/18 10:57 12/10/18 10:57 - General physical appearance no distress - Eyes PERRL, normal ocular movement - ENT normocephalic - Neck trachea midline, no lymphadectomy - Respiratory normal expansion, normal respiratory effort - Cardiovascular Cardiovascular exam: Present: RRR - Abdomen Abdomen general surgery: Present: soft, non tender - Integumentary Integumentary general surgery: Present: other (mesh protruding through) - Neurologic Present: CN 2-12 grossly intact - Musculoskeletal Present: normal posture - Psychiatric Psychiatric general surgery: Present: A&Ox3 Results - Labs All other labs normal.
[2018-12-10] MEDS ORDERED: Heparin 1,000 UNITS/500 mL 500 ML ONE (14:28)
[2018-12-10] MEDS ORDERED: *HR* PHENYLEPHRINE 1,000 MCG/10 ML SYRINGE IVP ONE (15:01)
[2018-12-10] MEDS ORDERED: CefOXitin 2,000 MG VIAL ONE (15:38)
[2018-12-10] MEDS ORDERED: EPHEDrine 50 MG/ML VIAL ONE (15:43)
[2018-12-10] MEDS ORDERED: *HR* Labetalol 20 MG/4 ML SYRINGE IVP ONE (16:44)
[2018-12-10] MEDS ORDERED: *HR* HYDROMORPHONE 2 MG/ML VIAL ONE (16:56)
[2018-12-10] MEDS ORDERED: *HR* OxyCODONE Immed Rel 5 MG TABLET PO PRN (17:08)
[2018-12-10] MEDS ORDERED: Ondansetron 4 MG/2 ML VIAL IVP ONE (17:08)
[2018-12-10] MEDS ORDERED: Morphine Sulfate 2 MG/ML SYRINGE IVP PRN (17:08)
--- NOTE | 2018-12-10 17:58 | Anesthesia Evaluation Post Op ---
Date of Encounter: 12/10/18 Time of Encounter: 17:56 - Vital Signs Vital Signs: Last Vital Signs Temp 98.9 F 12/10/18 17:38 Pulse 73 12/10/18 17:38 Resp 22 12/10/18 17:38 BP 114/61 12/10/18 17:38 Pulse Ox 97 12/10/18 17:38 - Lungs Lungs: Clear Ascult./Percussion - Airway Airway: Non-obstructed - Cardiovascular Regular Rate - Mental Status Mental Status: Alert & Oriented, Answers Appropriately - Pain Pain Scale: 3 - Nausea Vomiting Nausea Vomiting: Unable to assess - Hydration Hydration: NPO - Discharge PostOp Status: Transfer Patient to floor
--- NOTE | 2018-12-10 18:00 | Operative Note ---
Date of procedure: 12/10/18 Pre-op diagnosis: infected mesh/abdominal wound Post-op diagnosis: same Procedure: exploratory laparotomy lysis of adhesions x 30min explantation of infected mesh Implants: none Complications: none Anesthesia: NAKITAA Surgeon: Rashaun Payton Was there an equity sales assistant present: Yes Scale Shooter: Celia Worley Estimated blood loss (cc): 50 Specimen: infected mesh Condition: stable Disposition: PACU Procedure in Detail: patient was brought into the operating room suite. placed in the supine position. mechanical dvt prophylaxis was placed. the patient underwent smooth induction of anesthesia. Preoperative antibiotics were given. The patient was prepped and draped in the usual fashion. It was during the prep that we noted there to be purulent drainage around the mesh. A timeout was held identifying correct patient, pathology, procedure, and physician. I started by creating an incision along the midline to excise the old scar. I started at the superior portion of the incision and found a clean plan that led into the abdomen without issue or injury to the bowel. I then proceeded inferiorly until I encountered the mesh. I gently using blunt dissection lysed the adhesions to allow my finger to be placed directly underneath the mesh and used the electrocautery to cute through the mesh. I repeated this method of blunt dissection, cutting the mesh, blunt dissection until i reached the umbilicus. This is where the densest adhesions were. I used a combination of blunt and sharp dissection with the metzenbaum scissors to take down the adhesions and expose the abdominal wall. I was then able to open the remainder of the incision. I was able to appreciate the edge of the mesh on both sides of the abdominal wall. I then used the mercy instruments to hold traction on the mesh/fascia and used the electrocautery to create a plane between skin and the fascia so that I could excise lateral to the mesh to ensure it was completely removed. because of the area of the most dense adhesions was at the umbilicus, which is also where the mesh was and it was infected, the decision was made to excise the mesh as well as the umbilicus. I performed this on both sides. I unfortunately was not able to bring the fascial edges together, so i dissected to open the subcutaneous-fascial plane all the way to the oblique muscles. this was performed on both sides, which allowed for better approximation of the fascia. I then irrigatd with 1L of saline impregnated with 2g of mefoxin. I then used 0-neurolon suture in an interrupted fashion to close the fascia without tension. I then closed the deep dermal layer with 3-0 vicryl in an interrupted fashion and stapled the skin. I then placed the LISA negative pressure dressing on the incision. The patient tolerated the procedure well and was escorted to PACU in stable condition at the conclusion of the procedure. I
--- NOTE | 2018-12-10 18:04 | Event Note ---
Date of Encounter: 12/10/18 Time of Encounter: 18:01 patient seen and examined. now s/p ex lap, shannon, explantation of infected mesh, application of LISA dressing. doing well post operatively; PO pain meds; okay for DOLLY PUSHER if needed okay for albuterol per home schedule; IS usage strongly encouraged lopressor restarted CLD; okay to ADAT; started home PPI williamson in place; started on tamsulosin; okay to d/c williamson on 12/11 repeat h/h; if stable, plan to start home anticoagulant, antiplatelet on 12/12 OOBTC, ambulate as tolerated; PT/OT if concern about ability to ambulate independently
[2018-12-10] MEDS ORDERED: Nitroglycerin 0.4 MG TAB.SUBL SL PRN (18:11)
[2018-12-10] MEDS ORDERED: Ondansetron 4 MG/2 ML VIAL IVP PRN (18:11)
[2018-12-10 19:27] LABS: INR 1.2; Prothrombin Time 13.2 Seconds (9.4-12.1)
[2018-12-10] MEDS: Budesonide/Formoterol 160/4.5 1 PUFF INH IH SCH (20:12)
[2018-12-10] MEDS: Ringers Solution, Lactated 1,000 ML IVC SCH (20:50)
[2018-12-10] MEDS: Furosemide 20 MG TABLET PO SCH (20:51)
[2018-12-10] MEDS: *HR* LORazepam 0.5 MG TABLET PO PRN (21:47)
[2018-12-10] MEDS: *HR* HYDROcodone/Acet 5/325 mg TABLET PO PRN (23:10)
[2018-12-11] MEDS: *HR* HYDROcodone/Acet 5/325 mg TABLET PO PRN (04:57)
[2018-12-11 05:04] LABS: Hematocrit 29.5 % (37.5-50.1); Hemoglobin 9.9 g/dL (12.9-16.9)
[2018-12-11] MEDS: Budesonide/Formoterol 160/4.5 1 PUFF INH IH SCH ×2 (07:24→20:14)
[2018-12-11] MEDS: Morphine Sulfate 2 MG/ML SYRINGE IVP PRN ×2 (07:28→10:24)
[2018-12-11] MEDS: *HR* LORazepam 0.5 MG TABLET PO PRN ×2 (08:13→20:43)
[2018-12-11] MEDS: Furosemide 20 MG TABLET PO SCH ×2 (08:14→17:17)
[2018-12-11] MEDS: Metoprolol XL (24 HR) Succ 25 MG TAB.ER.24H PO SCH (08:14)
[2018-12-11] MEDS: Spironolactone 25 MG TABLET PO SCH (08:15)
[2018-12-11] MEDS: Ringers Solution, Lactated 1,000 ML IVC SCH ×2 (10:11→23:08)
--- NOTE | 2018-12-11 11:28 | General Surgery Progress Note ---
Date of Encounter: 12/11/18 Time of Encounter: 10:20 - Assessment and Plan (1) S/P exploratory laparotomy Current Visit: Yes Status: Acute pain is not well controlled, will change medication binder for comfort continue clears today OOB to chair gi/dvt prophylaxis continue williamson for accurate I/O's patient not able to move well today wound care (2) Hypertension Current Visit: No Status: Chronic continue po medication Qualifiers: Hypertension type: essential hypertension Qualified Code(s): I10 - Essential (primary) hypertension (3) DVT prophylaxis Current Visit: No Status: Acute (4) Afib Current Visit: Yes Status: Chronic continue plavix, start xarelto tomorrow as long as Hb stable Qualifiers: Atrial fibrillation type: unspecified Qualified Code(s): I48.91 - Unspecified atrial fibrillation (5) BPH (benign prostatic hyperplasia) Current Visit: Yes Status: Chronic continue flomax Qualifiers: Lower urinary tract symptom presence: unspecified whether lower urinary tract symptoms present Qualified Code(s): N40.0 - Benign prostatic hyperplasia without lower urinary tract symptoms Subjective Patient reports: still having pain, tolerating liquids well, no flatus, no bowel movement, afebrile Objective Vital Signs - Last 8 Hours Temp Pulse Resp BP Pulse Ox 12/11/18 10:52 97.6 F 78 15 117/61 96 12/11/18 07:25 17 96 12/11/18 06:43 98.0 F 81 15 103/59 97 12/11/18 04:32 97.7 F 76 16 110/60 97 Intake and Output 12/10/18 12/11/18 12/11/18 23:59 07:59 15:59 Intake Total 100 / 150 0 / 1600 1600 / 1600 Output Total 385 / 385 950 / 1300 350 / 1300 Balance -285 / -235 -950 / 300 1250 / 300 Intake: IV Fluids 100 / 150 1000 / 1000 Lactated Ringers 1,000 ML @ 75 1000 / 1000 mls/hr IVC .[id number] [facility] Rx#: [id number] Ofirmev 1,000 mg/100 ml 1,000 100 / 100 mg In 100 ml @ 400 mls/hr IVPB ONCE ONE Rx#:[id number] Oral 0 / 600 600 / 600 Output: Urine 300 / 300 Estimated Blood Loss 50 / 50 Urine Amount (Catheter) 335 / 335 Catheter 950 / 1000 50 / 1000 Other: # Bowel Movements 0 0 Weight 63.8 kg Patient Weight 12/11/18 23:59 Weight 63.8 kg - General physical appearance well developed, well nourished, no distress, moderate pain - Eyes PERRL, normal ocular movement - ENT normal mucosa, normocephalic - Neck Neck exam: trachea midline - Respiratory normal expansion, clear to auscultation - Cardiovascular Cardiovascular exam: Present: RRR - Abdomen Abdomen: Present: soft, tender, guarding (voluntary d/t pain). Absent: bowel sounds present, distended, rebound, rigid - Incision Incision: Present: intact (slight bloody drainage, blood on half chapin), approxi mated. Absent: erythema - Integumentary no rash - Neurologic CN 2-12 grossly intact - Musculoskeletal normal posture - Psychiatric oriented to time, speech is normal - Labs 12/11/18 04:59 Consult Discharge Plan - Plan Referrals: Dane Justin MD [Primary Care Provider] - Carlita Mccabe CNP [Advanced Practice Nurse] - 12/26/18 10:15 am
[2018-12-11] MEDS: Albuterol 2.5 MG/3 ML NEBULIZER AER PRN (14:46)
[2018-12-11] MEDS: *HR* OxyCODONE/APAP 5/325 TABLET PO PRN ×2 (15:51→20:42)
[2018-12-12] MEDS: *HR* OxyCODONE/APAP 5/325 TABLET PO PRN ×4 (03:14→20:51)
[2018-12-12 04:43] LABS: Basophils % 0.1 %; Eosinophils % 0.3 %; Hematocrit 28.6 % (37.5-50.1); Hemoglobin 9.4 g/dL (12.9-16.9); Immature Granulocytes % 0.5 % (0-4); Lymphocytes # 0.9 K/mcL (0.6-4.6); Lymphocytes % 9.1 %; Mean Corpuscular HGB Conc 32.9 g/dL (31.6-35.5); Mean Corpuscular Hemoglobin 31.1 pg (28.0-33.3); Mean Corpuscular Volume 94.7 fL (83.0-100.0); Mean Platelet Volume 9.9 fL (9.4-12.4); Monocytes % 10.4 %; Neutrophils # 7.5 K/mcL (1.6-8.9); Platelet Count 171 K/mcL (140-400); Red Blood Count 3.02 M/mcL (4.19-5.50); Red Cell Distribution Width 12.9 % (11.5-14.5); Segmented Neutrophils % 79.6 %; White Blood Count 9.4 K/mcL (4.3-11.1)
[2018-12-12 05:11] LABS: Blood Urea Nitrogen 10 mg/dL (8-23); Calcium 8.2 mg/dL (8.6-10.3); Carbon Dioxide 29 mEq/L (23-29); Chloride 96 mEq/L (98-107); Glucose 105 mg/dL (70-105); Osmolality,Calculated 271 (280-300); Potassium 3.6 mEq/L (3.5-5.1); Sodium 131 mEq/L (136-145)
[2018-12-12 05:31] LABS: BUN/Creatinine Ratio 14 (6-26); eGFR For African Americans > 60 (> 60); eGFR For Non-African Americans > 60 (> 60)
[2018-12-12] MEDS: Budesonide/Formoterol 160/4.5 1 PUFF INH IH SCH ×2 (07:24→19:51)
--- NOTE | 2018-12-12 07:31 | General Surgery Progress Note ---
Date of Encounter: 12/12/18 Time of Encounter: 07:28 - Assessment and Plan (1) Wound, open, abdominal wall, anterior Current Visit: Yes Status: Acute 83M POD #2 s/p ex lap, lysis of adhesions, mesh explantation and primary closure; currently on percocet; will start tramadol and flexeril today for better pain control will hold diet where it is at present until pain better controlled; once controlled can advance as tolerated OOBTC; ambulate over the weekend; PT/OT restart anticoagulation today, check h/h in Am; will stable or no significant change, then okay to stop checking after daily dressing changes, application of abdominal binder; SLiV when tolerating PO; check BMP, mg, phosph on 12/13 to evaluate K in light of current use of aldactone Qualifiers: Encounter type: initial encounter Qualified Code(s): S31.109A - Unspecified open wound of abdominal wall, unspecified quadrant without penetration into peritoneal cavity, initial encounter Subjective Patient reports: no new complaints, feels better, still having pain, pain is less, tolerating liquids well, afebrile Objective Vital Signs - Last 8 Hours Temp Pulse Resp BP Pulse Ox 12/12/18 07:24 16 97 12/12/18 06:38 98.2 F 83 16 111/72 96 12/12/18 04:29 98.8 F 80 15 108/70 97 Intake and Output 12/11/18 12/11/18 12/12/18 15:59 23:59 07:59 Intake Total 2120 / 3360 1240 / 3360 Output Total 850 / 1800 2600 / 2600 Balance 1270 / 1560 1240 / 1560 -2600 / -2600 Intake: IV Fluids 1000 / 2000 1000 / 2000 Lactated Ringers 1,000 ML @ 75 1000 / 2000 1000 / 2000 mls/hr IVC .[id number] [facility] Rx#: [id number] Oral 1120 / 1360 240 / 1360 Output: Urine 300 / 300 Catheter 550 / 1500 2600 / 2600 Other: Meal CLEARS clears Percent of Meal Consumed 0% 0% # Bowel Movements 0 Weight 67 kg Patient Weight 12/12/18 23:59 Weight 67 kg - General physical appearance no distress - Respiratory normal expansion, normal respiratory effort - Cardiovascular Cardiovascular exam: Present: RRR - Abdomen Abdomen: Present: soft, tender (appropriately tender) - Incision Incision: Present: intact, serosanguinous - Neurologic CN 2-12 grossly intact - Psychiatric oriented to time, oriented to person, oriented to place - Labs 12/12/18 04:20 12/12/18 04:20 Diabetes panel 12/12/18 Range/Units 04:20 Sodium 131 L (136-145) mEq/L Potassium 3.6 (3.5-5.1) mEq/L Chloride 96 L (98-107) mEq/L Carbon Dioxide 29 (23-29) mEq/L BUN 10 (8-23) mg/dL Creatinine 0.73 (0.70-1.30) mg/dL Glucose 105 (70-105) mg/dL Calcium 8.2 L (8.6-10.3) mg/dL Calcium panel 12/12/18 Range/Units 04:20 Calcium 8.2 L (8.6-10.3) mg/dL Pituitary panel 12/12/18 Range/Units 04:20 Sodium 131 L (136-145) mEq/L Potassium 3.6 (3.5-5.1) mEq/L Chloride 96 L (98-107) mEq/L Carbon Dioxide 29 (23-29) mEq/L BUN 10 (8-23) mg/dL Creatinine 0.73 (0.70-1.30) mg/dL Glucose 105 (70-105) mg/dL Calcium 8.2 L (8.6-10.3) mg/dL Adrenal panel 12/12/18 Range/Units 04:20 Sodium 131 L (136-145) mEq/L Potassium 3.6 (3.5-5.1) mEq/L Chloride 96 L (98-107) mEq/L Carbon Dioxide 29 (23-29) mEq/L BUN 10 (8-23) mg/dL Creatinine 0.73 (0.70-1.30) mg/dL Glucose 105 (70-105) mg/dL Calcium 8.2 L (8.6-10.3) mg/dL Consult Discharge Plan - Plan Referrals: Dane Justin MD [Primary Care Provider] - Carlita Mccabe CNP [Advanced Practice Nurse] - 12/26/18 10:15 am
[2018-12-12] MEDS ORDERED: D5% in 0.9% NACL w KCl 20 MEQ/1,000 ML MLS IVC SCH (07:45)
[2018-12-12] MEDS: Furosemide 20 MG TABLET PO SCH ×2 (08:39→17:31)
[2018-12-12] MEDS: Metoprolol XL (24 HR) Succ 25 MG TAB.ER.24H PO SCH (08:46)
[2018-12-12] MEDS: Spironolactone 25 MG TABLET PO SCH (08:46)
[2018-12-12] MEDS: traMADol 50 MG TABLET PO PRN (16:50)
[2018-12-12] MEDS: Albuterol 2.5 MG/3 ML NEBULIZER AER PRN (18:28)
[2018-12-12] MEDS: Morphine Sulfate 2 MG/ML SYRINGE IVP PRN (18:32)
[2018-12-12] MEDS: *HR* LORazepam 0.5 MG TABLET PO PRN (20:51)
[2018-12-12] MEDS ORDERED: *HR* Rivaroxaban 10 MG TABLET PO SCH (21:00)
[2018-12-13] MEDS: *HR* OxyCODONE/APAP 5/325 TABLET PO PRN ×4 (02:55→21:53)
[2018-12-13] MEDS: Albuterol 2.5 MG/3 ML NEBULIZER AER PRN ×2 (04:18→09:58)
[2018-12-13 04:21] LABS: BUN/Creatinine Ratio 9 (6-26); Blood Urea Nitrogen 8 mg/dL (8-23); Calcium 8.3 mg/dL (8.6-10.3); Carbon Dioxide 30 mEq/L (23-29); Chloride 96 mEq/L (98-107); Glucose 126 mg/dL (70-105); Magnesium 1.6 mg/dL (1.6-2.6); Osmolality,Calculated 276 (280-300); Phosphorous 2.4 mg/dL (2.7-4.5); Potassium 3.9 mEq/L (3.5-5.1); Sodium 133 mEq/L (136-145); eGFR For African Americans > 60 (> 60); eGFR For Non-African Americans > 60 (> 60)
[2018-12-13] MEDS: traMADol 50 MG TABLET PO PRN (06:30)
[2018-12-13 07:21] LABS: Bilirubin,Urine Negative (Negative); Blood,Urine Moderate (Negative); Clarity,Urine Clear (Clear); Color,Urine Yellow (Yellow); Glucose,Urine (UA) Normal (Normal); Ketones,Urine Negative (Negative); Leukocyte Esterase,Urine Moderate (Negative); Nitrite,Urine Negative (Negative); PH,Urine 6.5 pH Units (5.0-8.0); Protein,Urine 100 mg/dL (Neg-Trace); Urobilinogen,Urine Normal (Normal)
[2018-12-13 07:23] LABS: Bacteria,Urine None Seen per hpf (None-Few); Hyaline Casts,Urine None Seen per lpf (None-Few); RBC,Urine 50-100 per hpf (0-3)
[2018-12-13 07:37] LABS: Squamous Epithelial Cell,Urine Few per lpf (None-Few)
[2018-12-13] MEDS: Budesonide/Formoterol 160/4.5 1 PUFF INH IH SCH ×2 (07:53→20:37)
[2018-12-13] MEDS: Metoprolol XL (24 HR) Succ 25 MG TAB.ER.24H PO SCH (08:38)
[2018-12-13] MEDS: Spironolactone 25 MG TABLET PO SCH (08:38)
[2018-12-13] MEDS: Furosemide 20 MG TABLET PO SCH ×2 (08:39→17:09)
[2018-12-13] MEDS ORDERED: Isovue-370 500 ML BOTTLE IVP ONE (10:15)
[2018-12-13] MEDS ORDERED: 0.9 % Sodium Chloride 500 ML IV ONE (10:16)
--- NOTE | 2018-12-13 10:24 | AcuteCareSurgery Progress Note ---
<Carlita Mccabe - Last Filed: 12/13/18 10:17> Date of Encounter: 12/13/18 Time of Encounter: 10:17 - Assessment and Plan (1) Infected prosthetic mesh of abdominal wall Current Visit: Yes Status: Acute Date of procedure: 12/10/18 Pre-op diagnosis: infected mesh/abdominal wound Post-op diagnosis: same Procedure: exploratory laparotomy lysis of adhesions x 30min explantation of infected mesh Implants: none Complications: none Anesthesia: GETA Surgeon: Rashaun Payton POD #3 as above. Mesh pathology remains pending. He is noted be febrile overnight. T-max 102.3. CBC is pending. He received preoperative Clindamycin on December 10. We did start broad spectrum coverage on 12/13/18 (Vancomycin). A CXR was obtained and did not show any clear consolidation, there was atelectasis versus obesity's versus pulmonary nodules. A CT of the chest was recommended. We ordered a CT of the chest and abdomen/pelvis with IV contrast. Plan: Continue supportive care and discomfort management while awaiting full return of bowel function Continue G.I. and DVT prophylaxis Incentive spirometry 10 times every hour while awake consult to respiratory therapy for acappella, Mucomyst, and aggressive pulmonary toileting Out of bed to chair TID, do not offer meal trays while in the bed Activity as tolerated PT/OT following, recommend senior living at d/c Apply ice 20 minutes on 20 minutes off as needed Repeat am labs Continue IV atbx Continue to closely monitor in the hospital Qualifiers: Encounter type: subsequent encounter Qualified Code(s): T85.79XD - Infection and inflammatory reaction due to other internal prosthetic devices, implants and grafts, subsequent encounter (2) Afib Current Visit: Yes Status: 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 See above (5) DVT prophylaxis Current Visit: No Status: Acute on AC EPCDs Subjective Patient reports: still having pain, tolerating liquids well, voiding w/o difficulty (per williamson), flatus, no bowel movement, shortness of breath, fever Objective Vital Signs - Last 8 Hours Temp Pulse Resp BP Pulse Ox 12/13/18 09:59 16 94 12/13/18 07:55 16 94 12/13/18 07:43 100.5 F H 111 19 107/67 91 12/13/18 07:24 101.8 F H 116 20 107/62 90 12/13/18 06:02 102.3 F H 118 16 142/76 90 12/13/18 04:18 20 91 12/13/18 04:08 99.3 F 117 18 144/79 91 Intake and Output 12/12/18 12/13/18 12/13/18 23:59 07:59 15:59 Intake Total 0 / 0 Output Total 1350 / 1350 Balance -1350 / -1350 Intake: Oral 0 / 0 Output: Catheter 1350 / 1350 Other: Weight 67 kg Patient Weight 12/13/18 23:59 Weight 67 kg - General physical appearance no distress, moderate pain - Eyes normal ocular movement - ENT atraumatic, normocephalic - Neck Neck exam: trachea midline - Respiratory other (Decreased, course BL; conversational dyspnea) - Cardiovascular Cardiovascular exam: Present: irregular rhythm, murmurs - Abdomen Abdomen: Present: bowel sounds present, soft, tender Hernia: none - Incision Incision: Present: clean and dry, intact - Integumentary no rash - Neurologic normal sensation - Musculoskeletal normal posture - Psychiatric oriented to time, oriented to person, oriented to place, speech is normal, memory intact - Labs 12/12/18 04:20 12/13/18 03:25 Diabetes panel 12/13/18 Range/Units 03:25 Sodium 133 L (136-145) mEq/L Potassium 3.9 (3.5-5.1) mEq/L Chloride 96 L (98-107) mEq/L Carbon Dioxide 30 H (23-29) mEq/L BUN 8 (8-23) mg/dL Creatinine 0.85 (0.70-1.30) mg/dL Glucose 126 H (70-105) mg/dL Calcium 8.3 L (8.6-10.3) mg/dL Calcium panel 12/13/18 Range/Units 03:25 Calcium 8.3 L (8.6-10.3) mg/dL Phosphorus 2.4 L (2.7-4.5) mg/dL Pituitary panel 12/13/18 Range/Units 03:25 Sodium 133 L (136-145) mEq/L Potassium 3.9 (3.5-5.1) mEq/L Chloride 96 L (98-107) mEq/L Carbon Dioxide 30 H (23-29) mEq/L BUN 8 (8-23) mg/dL Creatinine 0.85 (0.70-1.30) mg/dL Glucose 126 H (70-105) mg/dL Calcium 8.3 L (8.6-10.3) mg/dL Adrenal panel 12/13/18 Range/Units 03:25 Sodium 133 L (136-145) mEq/L Potassium 3.9 (3.5-5.1) mEq/L Chloride 96 L (98-107) mEq/L Carbon Dioxide 30 H (23-29) mEq/L BUN 8 (8-23) mg/dL Creatinine 0.85 (0.70-1.30) mg/dL Glucose 126 H (70-105) mg/dL Calcium 8.3 L (8.6-10.3) mg/dL Consult Discharge Plan - Plan Referrals: Dane Justin MD [Primary Care Provider] - Carlita Mccabe CNP [Advanced Practice Nurse] - 12/26/18 10:15 am <Dane Swanson - Last Filed: 12/13/18 15:53> Date of Encounter: 12/13/18 Objective Vital Signs - Last 8 Hours Temp Pulse Resp BP Pulse Ox 12/13/18 12:48 98.3 F 89 17 108/64 96 12/13/18 09:59 16 94 12/13/18 07:55 16 94 Intake and Output 12/12/18 12/13/18 12/13/18 23:59 07:59 15:59 Intake Total 0 / 370 370 / 370 Output Total 1350 / 1550 200 / 1550 Balance -1350 / -1180 170 / -1180 Intake: IV Fluids 250 / 250 Vancocin 1,000 MG In 0.9 % 250 / 250 Sodium Chloride 250 ML @ 167 mls/hr IVPB Q24H [facility] Rx#: [id number] Oral 0 / 120 120 / 120 Output: Catheter 1350 / 1550 200 / 1550 Other: Meal Breakfast Percent of Meal Consumed 0% Weight 67 kg Patient Weight 12/13/18 23:59 Weight 67 kg - Labs 12/13/18 10:39 12/13/18 03:25 Diabetes panel 12/13/18 Range/Units 03:25 Sodium 133 L (136-145) mEq/L Potassium 3.9 (3.5-5.1) mEq/L Chloride 96 L (98-107) mEq/L Carbon Dioxide 30 H (23-29) mEq/L BUN 8 (8-23) mg/dL Creatinine 0.85 (0.70-1.30) mg/dL Glucose 126 H (70-105) mg/dL Calcium 8.3 L (8.6-10.3) mg/dL Calcium panel 12/13/18 Range/Units 03:25 Calcium 8.3 L (8.6-10.3) mg/dL Phosphorus 2.4 L (2.7-4.5) mg/dL Pituitary panel 12/13/18 Range/Units 03:25 Sodium 133 L (136-145) mEq/L Potassium 3.9 (3.5-5.1) mEq/L Chloride 96 L (98-107) mEq/L Carbon Dioxide 30 H (23-29) mEq/L BUN 8 (8-23) mg/dL Creatinine 0.85 (0.70-1.30) mg/dL Glucose 126 H (70-105) mg/dL Calcium 8.3 L (8.6-10.3) mg/dL Adrenal panel 12/13/18 Range/Units 03:25 Sodium 133 L (136-145) mEq/L Potassium 3.9 (3.5-5.1) mEq/L Chloride 96 L (98-107) mEq/L Carbon Dioxide 30 H (23-29) mEq/L BUN 8 (8-23) mg/dL Creatinine 0.85 (0.70-1.30) mg/dL Glucose 126 H (70-105) mg/dL Calcium 8.3 L (8.6-10.3) mg/dL - Attending Attestation I have personally performed a face to face evaluation on this patient. I have reviewed and agree with the care plan. History and Exam by me shows: The patient is seen and evaluated on morning rounds by the acute care surgery team covering for general surgery. Mr. Yeung is having some difficulty with respirations today and we will get the hospitalist involved and possibly pulmonary medicine on Saturday. He had a febrile episode. Chest x-ray was ordered and found to be negative. Follow-up CAT scan of the chest and abdomen is ordered. He has not been on antibiotics since surgery. I started vancomycin earlier this morning and further antibiotic therapy will be based on findings of CAT scan of the abdomen and pelvis. Dane Swanson MD FACS
[2018-12-13 10:53] LABS: Basophils % 0.2 %; Hematocrit 31.2 % (37.5-50.1); Hemoglobin 10.2 g/dL (12.9-16.9); Immature Granulocytes % 0.5 % (0-4); Lymphocytes # 0.8 K/mcL (0.6-4.6); Lymphocytes % 5.9 %; Mean Corpuscular HGB Conc 32.7 g/dL (31.6-35.5); Mean Corpuscular Hemoglobin 31.1 pg (28.0-33.3); Mean Corpuscular Volume 95.1 fL (83.0-100.0); Mean Platelet Volume 9.5 fL (9.4-12.4); Monocytes # 0.8 K/mcL (0.0-1.3); Monocytes % 6.4 %; Neutrophils # 11.4 K/mcL (1.6-8.9); Platelet Count 193 K/mcL (140-400); Red Blood Count 3.28 M/mcL (4.19-5.50); Red Cell Distribution Width 12.9 % (11.5-14.5); White Blood Count 13.1 K/mcL (4.3-11.1)
[2018-12-13] MEDS ORDERED: *HR* Metoprolol 5 MG/5 ML VIAL IVP PRN (13:01)
--- NOTE | 2018-12-13 14:05 | Internal Medicine Consult Note ---
Date of Encounter: 12/13/18 Time of Encounter: 13:00 - Assessment and Plan (1) Sepsis Current Visit: Yes Status: Acute Assessment and plan: Developed fever, tachycardia, and leukocytosis overnight Underwent extensive investigation this morning which revealed small bilateral pleural effusions with dense mucus plugging causing complete and partial collapse of the right LL and ML respectively lactic acid normal started on IV Vancomycin per surgery, will add levaquin as well (PCN allergy) strep/legionella ag, sputum culture, MRSA screen pulmonary toilet ordered per primary team. Encouraged the pt to use incentive spirometry as well Follow-up on blood culture He is currently saturating well on 2 L of oxygen; however, if he clinically deteriorates with increasing O2 requirement, may require pulmonary consultation for possible bronchoscopy Qualifiers: Sepsis type: sepsis due to unspecified organism Qualified Code(s): A41.9 - Sepsis, unspecified organism (2) HAP (hospital-acquired pneumonia) Current Visit: Yes Status: Acute Assessment and plan: as above (3) Afib Current Visit: Yes Status: Chronic Assessment and plan: Had brief episode of tachycardia this morning which improved after taking his home meds add PRN lopressor Qualifiers: Atrial fibrillation type: unspecified Qualified Code(s): I48.91 - Unspecified atrial fibrillation (4) CAD (coronary artery disease) Current Visit: No Status: Chronic Assessment and plan: home meds resumed Qualifiers: Coronary Disease-Associated Artery/Lesion type: [place] artery [place] vs. transplanted heart: [place] heart Associated angina: without angina Qualified Code(s): I25.10 - Atherosclerotic heart disease of [place] coronary artery without angina pectoris (5) Infected prosthetic mesh of abdominal wall Current Visit: Yes Status: Acute Assessment and plan: POD#3, mx per primary Qualifiers: Encounter type: subsequent encounter Qualified Code(s): T85.79XD - Infection and inflammatory reaction due to other internal prosthetic devices, implants and grafts, subsequent encounter - Time Spent With Patient Total time spent is greater than 50% in coordination of care (as documented) at patient's floor/unit and/or counseling patient: 25 - 35 minutes Internal Medicine - CN: HPI - Data of Consult Patient: new to practice Requesting Physician: Rashaun Payton MD - Consult Narrative Reason for consult: SOB, fever, PNA History of present illness: Mr. Yeung is a 83 year old male with history of COPD/asthma, afib on Xarelto, HTN, CAD s/p PCI 06/2017, HFrEF, who was admitted on 12/10 for infected mesh/abdominal wound and underwent exploratory laparoscopy, adhesiolysis, and explanatation of infected mesh. He is currently POD#3 today. Overnight, he developed tachycardia, fever of 102.3, and slightly worsening SOB hence he had CXR taken this morning. Chest x-ray was concerning for bibasilar airspace disease with small right pleural effusion and subsequently had CT chest done which showed dense mucus plugging within the right middle and lower bronchi resulting in complete consolidation and collapse of the right lower lobe and partial collapse of the right middle lobe. Pt also had worsening leukocytosis. Hospitalist was consulted for the management of HAP. At the time of my interview, patient was eating lunch and continued to have intermittent SOB that is worse on exertion but otherwise denies any chest pain, palpitation, orthopnea, PND, or LE swelling. Due to his abdominal surgery, he was concerned for coughing and had been trying to minimize the stress on his abdomen. Past Med Surg Social Fam HX - Past Medical History Medical history: arthritis, asthma, COPD, coronary artery disease, DVT, hyperlipidemia, hypertension, myocardial infarction, other Additional medical history: BPH, PVD, home 31/12 use Psychiatric history: anxiety - Past Surgical History Surgical History: herniorrhaphy, other Additional surgical history: femoral bypass, thombectomy, small bowel resection - Social History Smoking Status: Former smoker Smokeless Tobacco Status: No Alcohol use: heavy Drug use: none - Family History Mother Adopted: No Living Status: Hx Family Respiratory Disorders: Yes Father Living Status: Hx Family Cancer: Yes All systems: reviewed and no additional remarkable complaints except as stated Internal Medicine - CN: Meds Clopidogrel [Plavix] 75 mg PO QAM 01/25/16 [History] Omeprazole [PriLOSEC] 20 mg PO QAM 01/25/16 [History] Atorvastatin [Lipitor] 40 mg PO HS 07/17/16 [History] Fluticasone/Salmeterol [Advair 500-50 Diskus] 1 each IH BID 04/08/17 [History] Nitroglycerin [Nitrostat] 0.4 mg PO Q5M PRN 06/14/17 [History] Tamsulosin [Flomax] 0.4 mg PO BID 06/14/17 [History] LORazepam [Ativan] 0.5 mg PO HS PRN 07/12/17 [History] Spironolactone [Aldactone] 25 mg PO QAM 07/12/17 [History] Furosemide [Lasix] 20 mg PO BID 07/23/17 [History] Rivaroxaban [Xarelto] 20 mg PO HS 09/25/18 [History] Albuterol Neb [Proventil Neb] 2.5 mg PO Q6H PRN 12/10/18 [History] Ferrous Sulfate 325 mg PO QAM 12/10/18 [History] Lisinopril 2.5 mg PO QAM 12/10/18 [History] Metoprolol XL (24 HR) Succ [Toprol Xl] 12.5 mg PO QAM 12/10/18 [History] Allergy/AdvReac Type Severity Reaction Status Date / Time Amoxicillin Allergy Mild Rash Verified 12/10/18 11:45 Hospitalist - CN: Exam - Constitutional Vitals: Temp Pulse Resp BP Pulse Ox 98.3 F 89 17 108/64 96 12/13/18 12:48 12/13/18 12:48 12/13/18 12:48 12/13/18 12:48 12/13/18 12:48 Exam: General: Alert and oriented, mildly distress. HEENT:EOMI, pupils equal, round and reactive. Cardiovascular:Normal S1 & S2, No JVD. Pulse irregular but with normal rate Lungs: diminished, mild bibasilar rhonchi R>L Abdomen:Soft, minimal tenderness around the dressing which is c/d/i Extremities:No deformity or swelling Neurological:Normal cognition and motor skills. Non-focal Skin:Normal color, no rash, no lesions. Pulses:Carotid and radial pulses normal +2. Rest of the physical exam is non contributory Internal Medicine - CN: Reslt - Labs CBC & Chem 7: 12/13/18 10:39 12/13/18 03:25 Labs: Short CBC 12/13/18 Range/Units 10:39 WBC 13.1 H (4.3-11.1) K/mcL Hgb 10.2 L (12.9-16.9) g/dL Hct 31.2 L (37.5-50.1) % Plt Count 193 (140-400) K/mcL Neutrophils # 11.4 H (1.6-8.9) K/mcL BMP 12/13/18 03:25 Sodium 133 L Potassium 3.9 Chloride 96 L Carbon Dioxide 30 H BUN 8 Creatinine 0.85 Glucose 126 H Calcium 8.3 L Urine 12/13/18 Range/Units 06:58 Urine Color Yellow (Yellow) Urine Clarity Clear (Clear) Urine pH 6.5 (5.0-8.0) pH Units Ur Specific [place] 1.020 (1.010-1.025) Urine Protein 100 H (Neg-Trace) mg/dL Urine Glucose (UA) Normal (Normal) mg/dL - ABG Interpretation ABG results: PT/INR, D-dimer PT 13.2 Seconds (9.4-12.1) H 12/10/18 18:42 - Impressions Impressions Chest X-Ray 12/13/18 06:19 IMPRESSION: 1. Small right pleural effusion with mild bibasilar airspace disease, representing either atelectasis, pneumonia, or aspiration. 2. Additional mild curvilinear opacity within the mid left lung represents either additional atelectasis or pneumonia. 3. Small nodular densities overlying the right upper lung zone, possibly artifactual. However, as pulmonary nodules are in the differential, consider further characterization with a follow-up chest CT, preferably with contrast. D/ / Jace Gonzalez MD / Jace Gonzalez MD Interpreting Provider: Jace Gonzalez MD Abdomen/Pelvis CT 12/13/18 10:15 IMPRESSION: 1. Small bilateral pleural effusions with dense mucous plugging within the right middle and right lower bronchi, causing complete consolidation and collapse of the right lower lobe and partial collapse of the right middle lobe. 2. Additional mild consolidative opacity within left lower lobe likely reflects passive atelectasis. 3. Emphysema. 4. Multiple scattered pulmonary nodules throughout both lungs, a few of which account for the previously described chest x-ray abnormality. The largest nodule lies within the posterior left upper lobe and measures 19 x 10 mm. Further follow-up of these nodules is as advised below. 5. Postoperative changes along the mid and lower anterior abdominal wall with a thin 10 x 2 cm fluid collection within the anterior subcutaneous soft tissues, most likely a postoperative seroma or hematoma. No definite postoperative abscess is identified within the subcutaneous soft tissues or peritoneal space. 6. No acute process within the abdomen or pelvis. Intraperitoneal free air is likely postoperative in etiology. RECOMMENDATIONS: Fleischner Society guidelines for follow-up and management of incidentally detected pulmonary nodules: Multiple Solid Nodules: Nodule size greater than 8 mm In a low-risk patient, CT at 3-6 months, then consider CT at 18-24 months. In a high-risk patient, CT at 3-6 months, then CT at 18-24 months. Radiology 2017 http://pubs.rsna.org/doi/full/10.1148/radiol.[email or web address] D/ / 12/13/2018 11:37:30 Jace Gonzalez MD / benjamin Interpreting Provider: Jace Gonzalez MD Chest CT 12/13/18 10:15 IMPRESSION: 1. Small bilateral pleural effusions with dense mucous plugging within the right middle and right lower bronchi, causing complete consolidation and collapse of the right lower lobe and partial collapse of the right middle lobe. 2. Additional mild consolidative opacity within left lower lobe likely reflects passive atelectasis. 3. Emphysema. 4. Multiple scattered pulmonary nodules throughout both lungs, a few of which account for the previously described chest x-ray abnormality. The largest nodule lies within the posterior left upper lobe and measures 19 x 10 mm. Further follow-up of these nodules is as advised below. 5. Postoperative changes along the mid and lower anterior abdominal wall with a thin 10 x 2 cm fluid collection within the anterior subcutaneous soft tissues, most likely a postoperative seroma or hematoma. No definite postoperative abscess is identified within the subcutaneous soft tissues or peritoneal space. 6. No acute process within the abdomen or pelvis. Intraperitoneal free air is likely postoperative in etiology. RECOMMENDATIONS: Fleischner Society guidelines for follow-up and management of incidentally detected pulmonary nodules: Multiple Solid Nodules: Nodule size greater than 8 mm In a low-risk patient, CT at 3-6 months, then consider CT at 18-24 months. In a high-risk patient, CT at 3-6 months, then CT at 18-24 months. Radiology 2017 http://pubs.rsna.org/doi/full/10.1148/radiol.[email or web address] D/ / 12/13/2018 11:37:30 Jace Gonzalez MD / benjamin Interpreting Provider: Jace Gonzalez MD Consult Discharge Plan - Plan Referrals: Dane Justin MD [Primary Care Provider] - Carlita Mccabe CNP [Advanced Practice Nurse] - 12/26/18 10:15 am
[2018-12-13] MEDS: levoFLOXacin 750 MG/150 ML 750 MG/150 ML BAG IVPB SCH (15:56)
[2018-12-13] MEDS: Acetylcysteine 10% 2 ML INHSOL IH SCH ×4 (15:56→23:27)
[2018-12-13] MEDS: Ipratropium/Albuterol Neb 3 ML IH SCH ×4 (15:56→23:27)
[2018-12-13] MEDS: *HR* LORazepam 0.5 MG TABLET PO PRN (21:52)
[2018-12-14] MEDS: Ipratropium/Albuterol Neb 3 ML IH SCH ×6 (03:44→23:57)
[2018-12-14] MEDS: Acetylcysteine 10% 2 ML INHSOL IH SCH ×6 (03:44→23:57)
[2018-12-14] MEDS: *HR* OxyCODONE/APAP 5/325 TABLET PO PRN ×4 (04:02→20:16)
[2018-12-14 04:25] LABS: Basophils % 0.1 %; Eosinophils # 0.1 K/mcL (0.0-0.6); Eosinophils % 0.7 %; Hematocrit 26.5 % (37.5-50.1); Hemoglobin 8.9 g/dL (12.9-16.9); Immature Granulocytes % 0.3 % (0-4); Lymphocytes # 0.9 K/mcL (0.6-4.6); Mean Corpuscular HGB Conc 33.6 g/dL (31.6-35.5); Mean Corpuscular Hemoglobin 32.4 pg (28.0-33.3); Mean Corpuscular Volume 96.4 fL (83.0-100.0); Mean Platelet Volume 9.9 fL (9.4-12.4); Monocytes # 0.8 K/mcL (0.0-1.3); Monocytes % 11.2 %; Neutrophils # 5.7 K/mcL (1.6-8.9); Platelet Count 181 K/mcL (140-400); Red Blood Count 2.75 M/mcL (4.19-5.50); Red Cell Distribution Width 12.8 % (11.5-14.5); Segmented Neutrophils % 75.7 %; White Blood Count 7.5 K/mcL (4.3-11.1)
[2018-12-14 04:37] LABS: BUN/Creatinine Ratio 11 (6-26); Blood Urea Nitrogen 9 mg/dL (8-23); Calcium 7.8 mg/dL (8.6-10.3); Carbon Dioxide 29 mEq/L (23-29); Chloride 99 mEq/L (98-107); Glucose 102 mg/dL (70-105); Osmolality,Calculated 277 (280-300); Potassium 3.4 mEq/L (3.5-5.1); Sodium 134 mEq/L (136-145); eGFR For African Americans > 60 (> 60); eGFR For Non-African Americans > 60 (> 60)
[2018-12-14 05:08] LABS: Hypochromasia Present (Not Present); Platelet Estimate Normal (Normal)
--- NOTE | 2018-12-14 06:41 | Pulmonology Consult Note ---
Date of Encounter: 12/14/18 Time of Encounter: 06:31 Assessment and Plan (1) HAP (hospital-acquired pneumonia) Current Visit: Yes Status: Acute Agree with treatment for hospital associated pneumonia including organisms such as MRSA and Pseudomonas. Currently the patient on Levaquin and Vancomycin The MRSA nasal swab was negative however Plan to do bronchoscopy with BAL today of cultures negative 24 hours past the day can de-escalate vancomycin safely Duration of treatment should be around 7 days based upon clinical response and less drug-resistant organism has been identified (2) Mucus plugging of bronchi Current Visit: Yes Status: Acute This is secondary to ineffectual airway clearance complicated by pneumonia and recent abdominal surgery We will need aggressive bronchopulmonary hygiene Start Aerobika every 6 hours with BD's Out of bed to chair and incentive spirometry will also be helpful She will need adequate pain control to facilitate coughing A bronchoscopy is recommended. The procedure , risks, benefits, complications, and expected outcomes have been reviewed. Benefits of diagnosis, as well as risks to include bleeding, infection, pneumothorax which may require surgical intervention, and in a small population. The patient is aware that sometimes test is nondiagnostic. Discussed with patient and agrees to proceed. (3) Infected prosthetic mesh of abdominal wall Current Visit: Yes Status: Acute Management per general surgery Qualifiers: Encounter type: subsequent encounter Qualified Code(s): T85.79XD - Infection and inflammatory reaction due to other internal prosthetic devices, implants and grafts, subsequent encounter (4) Sepsis Current Visit: Yes Status: Acute Lactic acid noted normal would have very judicious use of crystalloid fluid resuscitation in this patient given underlying heart failure clinically quite stable Continue antibiotics and we will follow up cultures Qualifiers: Sepsis type: sepsis due to unspecified organism Qualified Code(s): A41.9 - Sepsis, unspecified organism (5) COPD exacerbation Current Visit: No Status: Acute Would give a couple of days of IV steroids given clinical situation to Solu- Medrol 40 mg IV twice a day Agree with Symbicort twice daily dosing Schedule duo nebs with hourly albuterol as needed Thanks for consultation we will continue to follow History of Present Illness Consult date: 12/14/18 Requesting physician: Iraj Mcgrath Reason for consult: pneumonia Chief complaint: Difficulty in Breathing History of present illness: This is a 83-year-old gentleman with a history of COPD along with atrial f ibrillation on long-term anticoagulation with Xarelto complicated by HFrEF he was admitted to for an infected mesh and abdominal wound underwent exploratory laparoscopy with explantation of the infected mesh and he is early postop day 4 for this. Unfortunately yesterday he developed a tachycardia and spiked fever of 102.3 and increasing shortness of breath had a chest x-ray taken which was notable for bibasilar airspace disease which was followed up by a CT chest which was notable for mucus plugging predominantly in the right lower lobe. Pulmonary was consulted for further evaluation. Mr. Yeung is well establish with [facility] where he has been followed by Dr. Barr. I reviewed his pulmonary function testing from 11/2016 which was notable for severe obstruction with a positive bronchodilator response in fact there is improvement by 16% is also very significant increase in the FEF 25-75% after bronchodilator suggestive of small airways disease/asthma. He has an extensive smoking history of at least 40 pack years but probably closer to 50 he quit in 1994. 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 He has had some mucous production but does not feel too bad today it has been difficult for him to take anything by mouth. He denies any fevers right now. Denies any hemoptysis or chest pain. Past Med Surg Social Fam HX - Past Medical History Medical history: arthritis, asthma, COPD, coronary artery disease, DVT, hyperlipidemia, hypertension, myocardial infarction, other Additional medical history: BPH, PVD, home 31/12 use Psychiatric history: anxiety - Past Surgical History Surgical History: herniorrhaphy, other Additional surgical history: femoral bypass, thombectomy, small bowel resection - Social History Smoking Status: Former smoker Smokeless Tobacco Status: No Alcohol use: heavy Drug use: none - Family History Mother Adopted: No Living Status: Hx Family Respiratory Disorders: Yes Father Living Status: Hx Family Cancer: Yes Medications and Allergies Clopidogrel [Plavix] 75 mg PO QAM 01/25/16 [History] Omeprazole [PriLOSEC] 20 mg PO QAM 01/25/16 [History] Atorvastatin [Lipitor] 40 mg PO HS 07/17/16 [History] Fluticasone/Salmeterol [Advair 500-50 Diskus] 1 each IH BID 04/08/17 [History] Nitroglycerin [Nitrostat] 0.4 mg PO Q5M PRN 06/14/17 [History] Tamsulosin [Flomax] 0.4 mg PO BID 06/14/17 [History] LORazepam [Ativan] 0.5 mg PO HS PRN 07/12/17 [History] Spironolactone [Aldactone] 25 mg PO QAM 07/12/17 [History] Furosemide [Lasix] 20 mg PO BID 07/23/17 [History] Rivaroxaban [Xarelto] 20 mg PO HS 09/25/18 [History] Albuterol Neb [Proventil Neb] 2.5 mg PO Q6H PRN 12/10/18 [History] Ferrous Sulfate 325 mg PO QAM 12/10/18 [History] Lisinopril 2.5 mg PO QAM 12/10/18 [History] Metoprolol XL (24 HR) Succ [Toprol Xl] 12.5 mg PO QAM 12/10/18 [History] Allergy/AdvReac Type Severity Reaction Status Date / Time Amoxicillin Allergy Mild Rash Verified 12/10/18 11:45 All Systems: The remainder of the systems were reviewed and are negative Physical Examination Vital Signs: Vital Signs, Last 4 Hours Temp Pulse Resp BP Pulse Ox 12/14/18 03:55 98.4 F 100 15 123/75 92 12/14/18 03:44 16 97 General appearance: no acute distress Eyes: nonicteric ENT: oropharynx moist Neck: supple Effort: normal Auscultation: bilateral: diminished breath sounds, wheezes (Faint expiratory whe ezes) Cardiovascular: regular rate and rhythm Gastrointestinal: hypoactive bowel sounds, tender, other (Abdominal binder noted and the patient's dressing in the midline is clean dry and intact) Integumentary: normal Extremities: no cyanosis, no edema, no clubbing Musculoskeletal: no deformities normal mental status, non-focal exam, pupils equal and round mood appropriate Results - Laboratory Findings CBC and BMP: 12/14/18 04:00 12/14/18 04:00 PT/INR, D-dimer PT 13.2 Seconds (9.4-12.1) H 12/10/18 18:42 Abnormal lab findings: Abnormal lab results WBC 13.1 K/mcL (4.3-11.1) H 12/13/18 10:39 RBC 2.75 M/mcL (4.19-5.50) L 12/14/18 04:00 Hgb 8.9 g/dL (12.9-16.9) L 12/14/18 04:00 Hct 26.5 % (37.5-50.1) L 12/14/18 04:00 11.4 K/mcL (1.6-8.9) H 12/13/18 10:39 Present (Not Present) A 12/14/18 04:00 PT 13.2 Seconds (9.4-12.1) H 12/10/18 18:42 Sodium 134 mEq/L (136-145) L 12/14/18 04:00 Potassium 3.4 mEq/L (3.5-5.1) L 12/14/18 04:00 Chloride 96 mEq/L (98-107) L 12/13/18 03:25 Carbon Dioxide 30 mEq/L (23-29) H 12/13/18 03:25 Glucose 126 mg/dL (70-105) H 12/13/18 03:25 277 (280-300) L 12/14/18 04:00 Calcium 7.8 mg/dL (8.6-10.3) L 12/14/18 04:00 Phosphorus 2.4 mg/dL (2.7-4.5) L 12/13/18 03:25 100 mg/dL (Neg-Trace) H 12/13/18 06:58 Moderate (Negative) H 12/13/18 06:58 Ur Leukocyte Esterase Moderate (Negative) H 12/13/18 06:58 50-100 per hpf (0-3) H 12/13/18 06:58 5-15 per hpf (0-3) H 12/13/18 06:58 Ur Culture Indicated? YES (NO) A 12/13/18 06:58 - Microbiology Findings Microbiology Findings: Microbiology, Last 48 Hours 12/13/18 21:05 Legionella Antigen - Final Urine,Clean Catch Streptococcus pneumoniae Antigen (M - Final 12/13/18 11:44 Blood Culture - Preliminary Peripheral Venipuncture Culture is incubating and being continuously monitored for growth. Final report to follow. 12/13/18 11:39 Blood Culture - Preliminary Peripheral Venipuncture Culture is incubating and being continuously monitored for growth. Final report to follow. 12/13/18 06:58 Urine Culture - Preliminary Urine,Catheterized (Straight) Culture is incubating. - Diagnostic Findings Chest x-ray: report reviewed, image reviewed CT scan - chest: report reviewed, image reviewed PFT's: report reviewed, other (Personally interpreted) - Clinical Findings Intake & Output: Intake & Output 12/13/18 12/13/18 12/14/18 15:59 23:59 07:59 Intake Total 370 / 370 0 / 370 Output Total 200 / 1800 250 / 1800 730 / 730 Balance 170 / -1430 -250 / -1430 -730 / -730 Weight 67.1 kg Consult Discharge Plan - Plan Referrals: Dane Justin MD [Primary Care Provider] - Carlita Mccabe CNP [Advanced Practice Nurse] - 12/26/18 10:15 am
[2018-12-14] MEDS: Budesonide/Formoterol 160/4.5 1 PUFF INH IH SCH ×2 (07:21→19:48)
--- NOTE | 2018-12-14 08:07 | Anesthesia Evaluation PreOp ---
Date of Encounter: 12/14/18 Time of Encounter: 08:15 - Past History Planned Operation: Bronchoscopy Cardiac History: [place] (2002), HTN, Other (Cardiomyopathy EF 15% 2017, currently 45%, mild pulm htn) Pulmonary History: Asthma, COPD (home oxygen), Other (Hospital Acquired Pneumonia) COAL CHEMIST History: Denies Any Significant HX Other Medical History: Denies Any Significant HX, Other (Sepsis) Anesthesia History: No Prior Anesthetic Complications Alcohol Use: heavy Drug use: none Medications and Allergies Clopidogrel [Plavix] 75 mg PO QAM 01/25/16 [History] Omeprazole [PriLOSEC] 20 mg PO QAM 01/25/16 [History] Atorvastatin [Lipitor] 40 mg PO HS 07/17/16 [History] Fluticasone/Salmeterol [Advair 500-50 Diskus] 1 each IH BID 04/08/17 [History] Nitroglycerin [Nitrostat] 0.4 mg PO Q5M PRN 06/14/17 [History] Tamsulosin [Flomax] 0.4 mg PO BID 06/14/17 [History] LORazepam [Ativan] 0.5 mg PO HS PRN 07/12/17 [History] Spironolactone [Aldactone] 25 mg PO QAM 07/12/17 [History] Furosemide [Lasix] 20 mg PO BID 07/23/17 [History] Rivaroxaban [Xarelto] 20 mg PO HS 09/25/18 [History] Albuterol Neb [Proventil Neb] 2.5 mg PO Q6H PRN 12/10/18 [History] Ferrous Sulfate 325 mg PO QAM 12/10/18 [History] Lisinopril 2.5 mg PO QAM 12/10/18 [History] Metoprolol XL (24 HR) Succ [Toprol Xl] 12.5 mg PO QAM 12/10/18 [History] Allergy/AdvReac Type Severity Reaction Status Date / Time Amoxicillin Allergy Mild Rash Verified 12/10/18 11:45 - Meds/Allergy Pre-op Review Medications Reviewed: Yes Allergies Reviewed: Yes Beta Blockers on Current Med List: Yes (on metoprolol) Anesthesia Results - Labs 12/14/18 04:00 12/14/18 04:00 - Imaging EKG: report reviewed (SR) Additional studies: ECHO EF 45% Anesthesia Exam Vital Signs/O2 Sat/Glucose, Most Current Temp Pulse Resp BP Pulse Ox 12/14/18 07:27 17 95 12/14/18 07:25 97.9 F 95 17 121/70 95 Height: 5'6 Weight: 147 lbs - HEENT Pupil (Motor): Pupils equal, EOMI Mallampati: III Denture Type: Upper: Complete Oral Opening: Less than or equal to 3 - COAL CHEMIST LOC: Oriented COAL CHEMIST Motor: Normal RUE, Normal LUE, Normal RLE, Normal LLE, Normal Face COAL CHEMIST Sensory: Normal: RUE, LUE, RLE, LLE, Face - Cardiac Rhythm: Regular Murmur: None JVD: No Carotid Bruit: No - Pulmonary Breath Sounds: bilateral Clear Respiratory Effort: Symmetrical Anesthesia Assess/Plan ASA Score: 4 (CAD COPD Cardiomyopathy) Level of consciousness: Cooperative, Oriented Anesthetic Plan: General, MAC Autologous Blood: No Monitoring Plan: Standard Monitors Recovery Plan: PACU (Discussed GA, possible MAC, agrees to proceed)
[2018-12-14] MEDS ORDERED: Lidocaine -MPF 2% 2 ML VIAL ONE (08:15)
[2018-12-14] MEDS ORDERED: *HR* Succinylcholine 200 MG/10 ML VIAL IVP ONE (08:15)
[2018-12-14] MEDS ORDERED: Lidocaine -MPF 4% 5 ML AMPUL ONE (08:15)
[2018-12-14] MEDS ORDERED: *HR* PHENYLEPHRINE 1,000 MCG/10 ML SYRINGE IVP ONE (08:17)
[2018-12-14] MEDS ORDERED: Propofol 500 MG/50 ML INFUS..BTL ONE (08:18)
--- NOTE | 2018-12-14 09:00 | AcuteCareSurgery Progress Note ---
Date of Encounter: 12/14/18 Time of Encounter: 08:00 - Assessment and Plan (1) Infected prosthetic mesh of abdominal wall Current Visit: Yes Status: Acute The patient is doing well after removal of infected mesh and the anterior abdominal wall. He has pneumonia with mucous plugging of the right lower lobe. Bronchoscopy will be planned for later today. Qualifiers: Encounter type: subsequent encounter Qualified Code(s): T85.79XD - Infection and inflammatory reaction due to other internal prosthetic devices, implants and grafts, subsequent encounter (2) Hypokalemia Current Visit: Yes Status: Resolved Potassium supplementation today. The patient is nothing by mouth for bronchoscopy. 20 mEq IV Subjective Narrative: The patient is seen and evaluated on morning rounds by the acute care surgeons. Acute care surgery is covering for general surgery today. The patient has had improvement in his respiratory rate and oxygenation. He is been started on broad-spectrum antibiotics for what appears to be a hospital-acquired pneumonia of the right lower lobe. I carefully examined his wound. There is no evidence of cellulitis. By CAT scan he has a very small seroma in the wound. Today his white blood cell count has normalized with antibiotic therapy. He will likely have bronchoscopy to evaluate the right lower lobe later today. Overall condition improved. Objective Vital Signs - Last 8 Hours Temp Pulse Resp BP Pulse Ox 12/14/18 07:27 17 95 12/14/18 07:25 97.9 F 95 17 121/70 95 12/14/18 03:55 98.4 F 100 15 123/75 92 12/14/18 03:44 16 97 Intake and Output 12/13/18 12/14/18 12/14/18 23:59 07:59 15:59 Intake Total 410 / 1280 1000 / 1000 Output Total 250 / 1800 730 / 730 Balance 160 / -520 -730 / 270 1000 / 270 Intake: IV Fluids 410 / 1160 1000 / 1000 Sodium Phosphate 30 MMOL In 0.9 260 / 260 % Sodium Chloride 250 ML @ 42 mls/hr IVPB ONCE ONE Rx#: [id number] Levaquin Premix 750mg/150 mL 150 / 150 750 mg In 150 ml @ 100 mls/hr IVPB Q24H [facility] Rx#:[id number] Oral 0 / 120 Output: Catheter 250 / 1800 730 / 730 Other: Weight 67.1 kg Blood Glucose* 112 Patient Weight 12/14/18 23:59 Weight 67.1 kg - General physical appearance chronically ill, other (Frail) - Respiratory crackles: right, wheezing: right (base) - Cardiovascular Cardiovascular exam: Present: RRR, no murmurs/rubs/gallops - Abdomen Abdomen: Present: bowel sounds present, soft, non tender - Neurologic CN 2-12 grossly intact, normal coordination, normal sensation - Psychiatric oriented to time, oriented to person, oriented to place, speech is normal, memory intact - Labs 12/14/18 04:00 12/14/18 04:00 Diabetes panel 12/14/18 Range/Units 04:00 Sodium 134 L (136-145) mEq/L Potassium 3.4 L (3.5-5.1) mEq/L Chloride 99 (98-107) mEq/L Carbon Dioxide 29 (23-29) mEq/L BUN 9 (8-23) mg/dL Creatinine 0.81 (0.70-1.30) mg/dL Glucose 102 (70-105) mg/dL Calcium 7.8 L (8.6-10.3) mg/dL Calcium panel 12/14/18 Range/Units 04:00 Calcium 7.8 L (8.6-10.3) mg/dL Pituitary panel 12/14/18 Range/Units 04:00 Sodium 134 L (136-145) mEq/L Potassium 3.4 L (3.5-5.1) mEq/L Chloride 99 (98-107) mEq/L Carbon Dioxide 29 (23-29) mEq/L BUN 9 (8-23) mg/dL Creatinine 0.81 (0.70-1.30) mg/dL Glucose 102 (70-105) mg/dL Calcium 7.8 L (8.6-10.3) mg/dL Adrenal panel 12/14/18 Range/Units 04:00 Sodium 134 L (136-145) mEq/L Potassium 3.4 L (3.5-5.1) mEq/L Chloride 99 (98-107) mEq/L Carbon Dioxide 29 (23-29) mEq/L BUN 9 (8-23) mg/dL Creatinine 0.81 (0.70-1.30) mg/dL Glucose 102 (70-105) mg/dL Calcium 7.8 L (8.6-10.3) mg/dL Consult Discharge Plan - Plan Referrals: Justin,Dane N, MD [Primary Care Provider] - Carlita Mccabe CNP [Advanced Practice Nurse] - 12/26/18 10:15 am
--- NOTE | 2018-12-14 09:00 | Internal Med Progress Note ---
Hospitalist Progress Note - Encounter Date of Encounter: 12/14/18 Time of Encounter: 09:00 - Subjective Interval History: No acute events overnight - Exam Vitals: Temp Pulse Resp BP Pulse Ox 97.9 F 95 17 121/70 95 12/14/18 07:25 12/14/18 07:25 12/14/18 07:27 12/14/18 07:25 12/14/18 07:27 Exam: General: Alert and oriented, mildly distress. HEENT:EOMI, pupils equal, round and reactive. Cardiovascular:Normal S1 & S2, No JVD. Pulse irregular but with normal rate Lungs: diminished, mild bibasilar rhonchi R>L Abdomen:Soft, minimal tenderness around the dressing which is c/d/i Extremities:No deformity or swelling Neurological:Normal cognition and motor skills. Non-focal Skin:Normal color, no rash, no lesions. Pulses:Carotid and radial pulses normal +2. Rest of the physical exam is non contributory - Assessment and Plan (1) Sepsis Current Visit: Yes Status: Acute Assessment and Plan: Developed fever, tachycardia, and leukocytosis and hospitalist service consulted CT showed small bilateral pleural effusions with dense mucus plugging causing complete and partial collapse of the right LL and ML respectively Pulmonary consulted and performed a bronchoscopy today and BAL Follow cultures, continue antibiotics (2) CAD (coronary artery disease) Current Visit: Yes Status: Chronic Assessment and Plan: home meds resumed (3) Afib Current Visit: Yes Status: Chronic Assessment and Plan: Continue rate control with beta blockers (4) Infected prosthetic mesh of abdominal wall Current Visit: Yes Status: Acute Assessment and Plan: POD#3, mx per primary (5) HAP (hospital-acquired pneumonia) Current Visit: Yes Status: Acute Assessment and Plan: Continue vancomycin and levaquin - Time Spent with Patient Total time spent is greater than 50% in coordination of care (as documented) at patient's floor/unit and/or counseling patient: Internal Medicine: Result - Labs CBC & Chem 7: 12/14/18 04:00 12/14/18 04:00 Labs: Short CBC 12/13/18 12/14/18 Range/Units 10:39 04:00 WBC 13.1 H 7.5 (4.3-11.1) K/mcL Hgb 10.2 L 8.9 L (12.9-16.9) g/dL Hct 31.2 L 26.5 L (37.5-50.1) % Plt Count 193 181 (140-400) K/mcL Neutrophils # 11.4 H 5.7 (1.6-8.9) K/mcL BMP 12/14/18 04:00 Sodium 134 L Potassium 3.4 L Chloride 99 Carbon Dioxide 29 BUN 9 Creatinine 0.81 Glucose 102 Calcium 7.8 L - ABG Interpretation ABG results: PT/INR, D-dimer PT 13.2 Seconds (9.4-12.1) H 12/10/18 18:42 - Impressions Impressions Abdomen/Pelvis CT 12/13/18 10:15 IMPRESSION: 1. Small bilateral pleural effusions with dense mucous plugging within the right middle and right lower lobe bronchi, causing complete consolidation and collapse of the right lower lobe and partial collapse of the right middle lobe. 2. Additional mild consolidative opacity within left lower lobe likely reflects passive atelectasis. 3. Emphysema. 4. Multiple scattered pulmonary nodules throughout both lungs, a few of which account for the previously described chest x-ray abnormality. The largest nodule lies within the posterior left upper lobe and measures 19 x 10 mm. Further follow-up of these nodules is as advised below. 5. Postoperative changes along the mid and lower anterior abdominal wall with a thin 10 x 2 cm fluid collection within the anterior subcutaneous soft tissues, most likely a postoperative seroma or hematoma. No definite postoperative abscess is identified within the subcutaneous soft tissues or peritoneal space. 6. No acute process within the abdomen or pelvis. Intraperitoneal free air is likely postoperative in etiology. RECOMMENDATIONS: Fleischner Society guidelines for follow-up and management of incidentally detected pulmonary nodules: Multiple Solid Nodules: Nodule size greater than 8 mm In a low-risk patient, CT at 3-6 months, then consider CT at 18-24 months. In a high-risk patient, CT at 3-6 months, then CT at 18-24 months. Radiology 2017 http://pubs.rsna.org/doi/full/10.1148/radiol.[email or web address] D/ / 12/13/2018 11:37:30 [facility] Provider: Jace Gonzalez MD Chest CT 12/13/18 10:15 IMPRESSION: 1. Small bilateral pleural effusions with dense mucous plugging within the right middle and right lower lobe bronchi, causing complete consolidation and collapse of the right lower lobe and partial collapse of the right middle lobe. 2. Additional mild consolidative opacity within left lower lobe likely reflects passive atelectasis. 3. Emphysema. 4. Multiple scattered pulmonary nodules throughout both lungs, a few of which account for the previously described chest x-ray abnormality. The largest nodule lies within the posterior left upper lobe and measures 19 x 10 mm. Further follow-up of these nodules is as advised below. 5. Postoperative changes along the mid and lower anterior abdominal wall with a thin 10 x 2 cm fluid collection within the anterior subcutaneous soft tissues, most likely a postoperative seroma or hematoma. No definite postoperative abscess is identified within the subcutaneous soft tissues or peritoneal space. 6. No acute process within the abdomen or pelvis. Intraperitoneal free air is likely postoperative in etiology. RECOMMENDATIONS: Fleischner Society guidelines for follow-up and management of incidentally detected pulmonary nodules: Multiple Solid Nodules: Nodule size greater than 8 mm In a low-risk patient, CT at 3-6 months, then consider CT at 18-24 months. In a high-risk patient, CT at 3-6 months, then CT at 18-24 months. Radiology 2017 http://pubs.rsna.org/doi/full/10.1148/radiol.[email or web address] D/ / 12/13/2018 11:37:30 Jace Gonzalez MD / mariel Interpreting Provider: Jace Gonzalez MD Consult Discharge Plan - Plan Referrals: Dane Justin MD [Primary Care Provider] - Carlita Mccabe CNP [Advanced Practice Nurse] - 12/26/18 10:15 am (1) Sepsis Qualifiers: Sepsis type: sepsis due to unspecified organism Qualified Code(s): A41.9 - Sepsis, unspecified organism (2) CAD (coronary artery disease) Qualifiers: Coronary Disease-Associated Artery/Lesion type: [place] artery [place] vs. transplanted heart: [place] heart Associated angina: without angina Qualified Code(s): I25.10 - Atherosclerotic heart disease of [place] coronary artery without angina pectoris (3) Afib Qualifiers: Atrial fibrillation type: unspecified Qualified Code(s): I48.91 - Unspecified atrial fibrillation (4) Infected prosthetic mesh of abdominal wall Qualifiers: Encounter type: subsequent encounter Qualified Code(s): T85.79XD - Infection and inflammatory reaction due to other internal prosthetic devices, implants and grafts, subsequent encounter
[2018-12-14] MEDS ORDERED: Potassium Chloride 20 MEQ, Lidocaine 1% 2 ML in D5% in Water 250 ML IVPB ONE (09:02)
[2018-12-14] MEDS: Spironolactone 25 MG TABLET PO SCH (09:21)
[2018-12-14] MEDS: Furosemide 20 MG TABLET PO SCH ×2 (09:21→17:43)
[2018-12-14] MEDS: Metoprolol XL (24 HR) Succ 25 MG TAB.ER.24H PO SCH (09:21)
[2018-12-14] MEDS ORDERED: Albuterol 2.5 MG/3 ML NEBULIZER ONE (09:27)
[2018-12-14] MEDS ORDERED: Lidocaine Viscous Oral Soln 15 ML SOLUTION ONE (09:27)
[2018-12-14] MEDS ORDERED: Esmolol 100 MG/10 ML VIAL IVP ONE (09:54)
--- NOTE | 2018-12-14 10:31 | Anesthesia Evaluation Post Op ---
Date of Encounter: 12/14/18 Time of Encounter: 10:30 - Vital Signs Vital Signs: Vital Signs/O2 Sat/Glucose, Most Current Temp Pulse Resp BP Pulse Ox 12/14/18 10:16 95 18 116/81 97 12/14/18 10:06 98.1 F 99 24 114/68 99 12/14/18 09:32 98 20 141/69 96 12/14/18 09:15 95 12/14/18 07:27 17 95 12/14/18 07:25 97.9 F 95 17 121/70 95 - Lungs Lungs: Clear Ascult./Percussion - Airway Airway: Non-obstructed - Cardiovascular Baseline Rhythm - Mental Status Mental Status: Alert & Oriented, Answers Appropriately - Pain Pain Scale: 2 - Nausea Vomiting Nausea Vomiting: Not Present - Hydration Hydration: NPO - Discharge PostOp Status: Transfer Patient to floor
[2018-12-14 11:31] LABS: Appearance of Body Fluid Hazy (Clear); Volume of Body Fluid 24 mL
[2018-12-14] MEDS: traMADol 50 MG TABLET PO PRN (13:34)
[2018-12-14] MEDS: levoFLOXacin 750 MG/150 ML 750 MG/150 ML BAG IVPB SCH (15:42)
[2018-12-14] MEDS: *HR* LORazepam 0.5 MG TABLET PO PRN (22:00)
[2018-12-15] MEDS: *HR* OxyCODONE/APAP 5/325 TABLET PO PRN ×4 (00:35→19:18)
[2018-12-15] MEDS: Ipratropium/Albuterol Neb 3 ML IH SCH ×5 (03:52→19:54)
[2018-12-15] MEDS: Acetylcysteine 10% 2 ML INHSOL IH SCH ×2 (03:52→07:37)
[2018-12-15 04:02] LABS: Basophils % 0.1 %; Eosinophils # 0.1 K/mcL (0.0-0.6); Eosinophils % 1.7 %; Hematocrit 25.9 % (37.5-50.1); Hemoglobin 8.6 g/dL (12.9-16.9); Immature Granulocytes % 0.4 % (0-4); Lymphocytes # 0.8 K/mcL (0.6-4.6); Lymphocytes % 11.6 %; Mean Corpuscular HGB Conc 33.2 g/dL (31.6-35.5); Mean Corpuscular Hemoglobin 31.3 pg (28.0-33.3); Mean Corpuscular Volume 94.2 fL (83.0-100.0); Mean Platelet Volume 10.4 fL (9.4-12.4); Monocytes # 0.7 K/mcL (0.0-1.3); Monocytes % 9.3 %; Neutrophils # 5.6 K/mcL (1.6-8.9); Platelet Count 208 K/mcL (140-400); Red Blood Count 2.75 M/mcL (4.19-5.50); Red Cell Distribution Width 12.8 % (11.5-14.5); Segmented Neutrophils % 76.9 %; White Blood Count 7.2 K/mcL (4.3-11.1)
[2018-12-15 04:19] LABS: BUN/Creatinine Ratio 11 (6-26); Blood Urea Nitrogen 9 mg/dL (8-23); Calcium 7.9 mg/dL (8.6-10.3); Carbon Dioxide 27 mEq/L (23-29); Chloride 98 mEq/L (98-107); Glucose 113 mg/dL (70-105); Osmolality,Calculated 275 (280-300); Potassium 3.5 mEq/L (3.5-5.1); Sodium 133 mEq/L (136-145); eGFR For African Americans > 60 (> 60); eGFR For Non-African Americans > 60 (> 60)
[2018-12-15] MEDS: Budesonide/Formoterol 160/4.5 1 PUFF INH IH SCH ×2 (07:37→19:54)
--- NOTE | 2018-12-15 08:17 | Internal Med Progress Note ---
Hospitalist Progress Note - Encounter Date of Encounter: 12/15/18 Time of Encounter: 08:00 - Subjective Interval History: No acute events overnight - Exam Vitals: Temp Pulse Resp BP Pulse Ox 97.4 F L 91 16 123/73 94 12/15/18 06:40 12/15/18 06:40 12/15/18 07:38 12/15/18 06:40 12/15/18 07:38 Exam: General: Alert and oriented, mildly distress. HEENT:EOMI, pupils equal, round and reactive. Cardiovascular:Normal S1 & S2, No JVD. Pulse irregular but with normal rate Lungs: diminished, mild bibasilar rhonchi R>L Abdomen:Soft, minimal tenderness around the dressing which is c/d/i Extremities:No deformity or swelling Neurological:Normal cognition and motor skills. Non-focal Skin:Normal color, no rash, no lesions. Pulses:Carotid and radial pulses normal +2. Rest of the physical exam is non contributory - Assessment and Plan (1) Sepsis Current Visit: Yes Status: Acute Assessment and Plan: Developed fever, tachycardia, and leukocytosis and hospitalist service consulted CT showed small bilateral pleural effusions with dense mucus plugging causing complete and partial collapse of the right LL and ML respectively Pulmonary consulted and performed a bronchoscopy today and BAL Descalate antibiotics to levaquin per pulmonary (2) CAD (coronary artery disease) Current Visit: Yes Status: Chronic Assessment and Plan: home meds resumed (3) Afib Current Visit: Yes Status: Chronic Assessment and Plan: Continue rate control with beta blockers (4) Infected prosthetic mesh of abdominal wall Current Visit: Yes Status: Acute Assessment and Plan: POD#3, mx per primary (5) HAP (hospital-acquired pneumonia) Current Visit: Yes Status: Acute Assessment and Plan: Continue levaquin - Time Spent with Patient Total time spent is greater than 50% in coordination of care (as documented) at patient's floor/unit and/or counseling patient: Internal Medicine: Result - Labs CBC & Chem 7: 12/15/18 03:40 12/15/18 03:40 Labs: Short CBC 12/15/18 Range/Units 03:40 WBC 7.2 (4.3-11.1) K/mcL Hgb 8.6 L (12.9-16.9) g/dL Hct 25.9 L (37.5-50.1) % Plt Count 208 (140-400) K/mcL Neutrophils # 5.6 (1.6-8.9) K/mcL BMP 12/15/18 03:40 Sodium 133 L Potassium 3.5 Chloride 98 Carbon Dioxide 27 BUN 9 Creatinine 0.82 Glucose 113 H Calcium 7.9 L - ABG Interpretation ABG results: PT/INR, D-dimer PT 13.2 Seconds (9.4-12.1) H 12/10/18 18:42 Consult Discharge Plan - Plan Referrals: Dane Justin MD [Primary Care Provider] - Carlita Mccabe CNP [Advanced Practice Nurse] - 12/26/18 10:15 am (1) Sepsis Qualifiers: Sepsis type: sepsis due to unspecified organism Qualified Code(s): A41.9 - Sepsis, unspecified organism (2) CAD (coronary artery disease) Qualifiers: Coronary Disease-Associated Artery/Lesion type: [place] artery [place] vs. transplanted heart: [place] heart Associated angina: without angina Qualified Code(s): I25.10 - Atherosclerotic heart disease of [place] coronary artery without angina pectoris (3) Afib Qualifiers: Atrial fibrillation type: unspecified Qualified Code(s): I48.91 - Unspecified atrial fibrillation (4) Infected prosthetic mesh of abdominal wall Qualifiers: Encounter type: subsequent encounter Qualified Code(s): T85.79XD - Infection and inflammatory reaction due to other internal prosthetic devices, implants and grafts, subsequent encounter
--- NOTE | 2018-12-15 08:20 | Pulmonology Progress Note ---
Date of Encounter: 12/15/18 Objective PUL Vital signs: Last Vital Signs Temp 97.4 F L 12/15/18 06:40 Pulse 91 12/15/18 06:40 Resp 16 12/15/18 07:38 BP 123/73 12/15/18 06:40 Pulse Ox 94 12/15/18 07:38 Results - Laboratory Findings CBC and BMP: 12/15/18 03:40 12/15/18 03:40 PT/INR, D-dimer PT 13.2 Seconds (9.4-12.1) H 12/10/18 18:42 Abnormal lab findings: Abnormal lab results WBC 13.1 K/mcL (4.3-11.1) H 12/13/18 10:39 RBC 2.75 M/mcL (4.19-5.50) L 12/15/18 03:40 Hgb 8.6 g/dL (12.9-16.9) L 12/15/18 03:40 Hct 25.9 % (37.5-50.1) L 12/15/18 03:40 11.4 K/mcL (1.6-8.9) H 12/13/18 10:39 Present (Not Present) A 12/14/18 04:00 PT 13.2 Seconds (9.4-12.1) H 12/10/18 18:42 Sodium 133 mEq/L (136-145) L 12/15/18 03:40 Potassium 3.4 mEq/L (3.5-5.1) L 12/14/18 04:00 Chloride 96 mEq/L (98-107) L 12/13/18 03:25 Carbon Dioxide 30 mEq/L (23-29) H 12/13/18 03:25 Glucose 113 mg/dL (70-105) H 12/15/18 03:40 POC Glucose 112 mg/dL (70-99) H 12/14/18 05:01 275 (280-300) L 12/15/18 03:40 Calcium 7.9 mg/dL (8.6-10.3) L 12/15/18 03:40 Phosphorus 2.4 mg/dL (2.7-4.5) L 12/13/18 03:25 100 mg/dL (Neg-Trace) H 12/13/18 06:58 Moderate (Negative) H 12/13/18 06:58 Ur Leukocyte Esterase Moderate (Negative) H 12/13/18 06:58 50-100 per hpf (0-3) H 12/13/18 06:58 5-15 per hpf (0-3) H 12/13/18 06:58 Ur Culture Indicated? YES (NO) A 12/13/18 06:58 Fluid Appearance Hazy (Clear) A 12/14/18 Unknown - Microbiology Findings Microbiology Findings: Microbiology, Last 48 Hours 12/13/18 06:58 Urine Culture - Final Urine,Catheterized (Straight) No growth. 12/14/18 Unknown Fungal Culture - Preliminary Right Middle Lobe Lung Culture is incubating. 12/14/18 Unknown Respiratory Culture - Preliminary Right Middle Lobe Lung 12/13/18 21:05 Legionella Antigen - Final Urine,Clean Catch Streptococcus pneumoniae Antigen (M - Final 12/13/18 11:44 Blood Culture - Preliminary Peripheral Venipuncture Culture is incubating and being continuously monitored for growth. Final report to follow. 12/13/18 11:39 Blood Culture - Preliminary Peripheral Venipuncture Culture is incubating and being continuously monitored for growth. Final report to follow. - Clinical Findings Intake & Output: Intake & Output 12/14/18 12/15/18 12/15/18 23:59 07:59 15:59 Intake Total 400 / 2152 Balance 400 / 1042 Weight 65.2 kg Consult Discharge Plan - Plan Referrals: Dane Justin MD [Primary Care Provider] - Carlita Mccabe CNP [Advanced Practice Nurse] - 12/26/18 10:15 am
[2018-12-15] MEDS ORDERED: Albuterol 2.5 MG/3 ML NEBULIZER IH PRN (09:00)
--- NOTE | 2018-12-15 09:27 | AcuteCareSurgery Progress Note ---
Date of Encounter: 12/15/18 Time of Encounter: 07:00 - Assessment and Plan (1) Infected prosthetic mesh of abdominal wall Current Visit: Yes Status: Acute Post-op condition is satisfactory. Pt tolerating cardiac diet. Leukocytosis is resolved. Continue IV abx. Start DC planning. Qualifiers: Encounter type: subsequent encounter Qualified Code(s): T85.79XD - Infection and inflammatory reaction due to other internal prosthetic devices, implants and grafts, subsequent encounter (2) Pneumonia Current Visit: No Status: Acute S/P bronch. Pt feels much better. 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 Qualifiers: Pneumonia type: due to unspecified organism Laterality: unspecified laterality Lung location: unspecified part of lung Qualified Code(s): J18.9 - Pneumonia, unspecified organism Subjective Patient reports: no new complaints, feels better (after bronch), pain is less, tolerating a regular diet, flatus, shortness of breath Objective Vital Signs - Last 8 Hours Temp Pulse Resp BP Pulse Ox 12/15/18 07:38 16 94 12/15/18 06:40 97.4 F L 91 16 123/73 96 12/15/18 04:15 98.7 F 91 17 109/67 94 12/15/18 03:52 16 97 Intake and Output 12/14/18 12/15/18 12/15/18 23:59 07:59 15:59 Intake Total 400 / 2152 Balance 400 / 1042 Intake: IV Fluids 400 / 912 Vancocin 1,000 MG In 0.9 % 250 / 250 Sodium Chloride 250 ML @ 167 mls/hr IVPB Q24H [facility] Rx#: [id number] Levaquin Premix 750mg/150 mL 150 / 150 750 mg In 150 ml @ 100 mls/hr IVPB Q24H [facility] Rx#:[id number] Other: Weight 65.2 kg Patient Weight 12/15/18 23:59 Weight 65.2 kg - General physical appearance no distress, no pain - Eyes PERRL, normal ocular movement - ENT normal mucosa, no congestion - Neck Neck exam: trachea midline, no venous distension - Respiratory rales: bilateral - Cardiovascular Cardiovascular exam: Present: RRR - Abdomen Abdomen: Present: bowel sounds present, soft - Incision Incision: Present: clean and dry, intact - Neurologic CN 2-12 grossly intact, normal coordination, normal sensation - Musculoskeletal normal posture - Psychiatric oriented to time, oriented to person - Labs 12/15/18 03:40 12/15/18 03:40 Diabetes panel 12/15/18 Range/Units 03:40 Sodium 133 L (136-145) mEq/L Potassium 3.5 (3.5-5.1) mEq/L Chloride 98 (98-107) mEq/L Carbon Dioxide 27 (23-29) mEq/L BUN 9 (8-23) mg/dL Creatinine 0.82 (0.70-1.30) mg/dL Glucose 113 H (70-105) mg/dL Calcium 7.9 L (8.6-10.3) mg/dL Calcium panel 12/15/18 Range/Units 03:40 Calcium 7.9 L (8.6-10.3) mg/dL Pituitary panel 12/15/18 Range/Units 03:40 Sodium 133 L (136-145) mEq/L Potassium 3.5 (3.5-5.1) mEq/L Chloride 98 (98-107) mEq/L Carbon Dioxide 27 (23-29) mEq/L BUN 9 (8-23) mg/dL Creatinine 0.82 (0.70-1.30) mg/dL Glucose 113 H (70-105) mg/dL Calcium 7.9 L (8.6-10.3) mg/dL Adrenal panel 12/15/18 Range/Units 03:40 Sodium 133 L (136-145) mEq/L Potassium 3.5 (3.5-5.1) mEq/L Chloride 98 (98-107) mEq/L Carbon Dioxide 27 (23-29) mEq/L BUN 9 (8-23) mg/dL Creatinine 0.82 (0.70-1.30) mg/dL Glucose 113 H (70-105) mg/dL Calcium 7.9 L (8.6-10.3) mg/dL Consult Discharge Plan - Plan Referrals: Dane Justin MD [Primary Care Provider] - Carlita Mccabe CNP [Advanced Practice Nurse] - 12/26/18 10:15 am
[2018-12-15] MEDS: Furosemide 20 MG TABLET PO SCH ×2 (10:15→18:00)
[2018-12-15] MEDS: Spironolactone 25 MG TABLET PO SCH (10:16)
[2018-12-15] MEDS: Metoprolol XL (24 HR) Succ 25 MG TAB.ER.24H PO SCH (10:16)
--- NOTE | 2018-12-15 13:20 | Pulmonology Progress Note ---
Date of Encounter: 12/15/18 Time of Encounter: 11:00 Assessment and Plan (1) HAP (hospital-acquired pneumonia) Current Visit: Yes Status: Acute Patient and her bronchoscopy due to mucus plugging BAL is not growing anything and is not growing over 24 hours will de-escalate antibiotics based on clinical response. Antibiotics to be de-escalate as vancomycin. We will continue Levaquin and 7 days total on discharge. (2) Mucus plugging of bronchi Current Visit: Yes Status: Acute Patient had a bronchoscopy with BAL. To follow cultures. Pulmonary will sign off we will follow peripherally (3) COPD (chronic obstructive pulmonary disease) Current Visit: Yes Status: Acute Continue bronchodilators and Symbicort will de-escalate IV steroids the background of abdominal mesh infection patient does not look like he is in COPD exacerbation with today's clinical picture Qualifiers: COPD type: chronic bronchitis Qualified Code(s): J41.0 - Simple chronic bronchitis Subjective Principal diagnosis: Mucus plugging of bronchi with pneumonia Interval history: Patient is having severe abdominal pain after a few bouts of cough. Patient denies any chest pain chest tightness denies any palpitation or syncope patient sitting in chair with some discomfort. Objective PUL Vital signs: Last Vital Signs Temp 97.5 F L 12/15/18 12:21 Pulse 96 12/15/18 12:21 Resp 16 12/15/18 12:21 BP 112/67 12/15/18 12:21 Pulse Ox 98 12/15/18 12:21 General appearance: appears uncomfortable Auscultation: bilateral: other (Scattered rales) Cardiovascular: regular rate and rhythm Gastrointestinal: other (Patient has an abdominal binder over the site of hernia surgery) Extremities: no edema Musculoskeletal: no deformities normal mental status, non-focal exam mood appropriate Results - Laboratory Findings CBC and BMP: 12/15/18 03:40 12/15/18 03:40 PT/INR, D-dimer PT 13.2 Seconds (9.4-12.1) H 12/10/18 18:42 Abnormal lab findings: Abnormal lab results WBC 13.1 K/mcL (4.3-11.1) H 12/13/18 10:39 RBC 2.75 M/mcL (4.19-5.50) L 12/15/18 03:40 Hgb 8.6 g/dL (12.9-16.9) L 12/15/18 03:40 Hct 25.9 % (37.5-50.1) L 12/15/18 03:40 11.4 K/mcL (1.6-8.9) H 12/13/18 10:39 Present (Not Present) A 12/14/18 04:00 PT 13.2 Seconds (9.4-12.1) H 12/10/18 18:42 Sodium 133 mEq/L (136-145) L 12/15/18 03:40 Potassium 3.4 mEq/L (3.5-5.1) L 12/14/18 04:00 Chloride 96 mEq/L (98-107) L 12/13/18 03:25 Carbon Dioxide 30 mEq/L (23-29) H 12/13/18 03:25 Glucose 113 mg/dL (70-105) H 12/15/18 03:40 POC Glucose 112 mg/dL (70-99) H 12/14/18 05:01 275 (280-300) L 12/15/18 03:40 Calcium 7.9 mg/dL (8.6-10.3) L 12/15/18 03:40 Phosphorus 2.4 mg/dL (2.7-4.5) L 12/13/18 03:25 100 mg/dL (Neg-Trace) H 12/13/18 06:58 Moderate (Negative) H 12/13/18 06:58 Ur Leukocyte Esterase Moderate (Negative) H 12/13/18 06:58 50-100 per hpf (0-3) H 12/13/18 06:58 5-15 per hpf (0-3) H 12/13/18 06:58 Ur Culture Indicated? YES (NO) A 12/13/18 06:58 Fluid Appearance Hazy (Clear) A 12/14/18 Unknown - Microbiology Findings Microbiology Findings: Microbiology, Last 48 Hours 12/14/18 Unknown Respiratory Culture - Preliminary Right Middle Lobe Lung 12/14/18 Unknown Acid Fast Stain - Final Right Middle Lobe Lung 12/13/18 06:58 Urine Culture - Final Urine,Catheterized (Straight) No growth. 12/14/18 Unknown Fungal Culture - Preliminary Right Middle Lobe Lung Culture is incubating. 12/13/18 21:05 Legionella Antigen - Final Urine,Clean Catch Streptococcus pneumoniae Antigen (M - Final 12/13/18 11:44 Blood Culture - Preliminary Peripheral Venipuncture Culture is incubating and being continuously monitored for growth. Final report to follow. 12/13/18 11:39 Blood Culture - Preliminary Peripheral Venipuncture Culture is incubating and being continuously monitored for growth. Final report to follow. - Clinical Findings Intake & Output: Intake & Output 12/14/18 12/15/18 12/15/18 23:59 07:59 15:59 Intake Total 400 / 2152 360 / 360 Balance 400 / 1042 360 / 360 Weight 65.2 kg Consult Discharge Plan - Plan Referrals: Dane Justin MD [Primary Care Provider] - Carlita Mccabe CNP [Advanced Practice Nurse] - 12/26/18 10:15 am
[2018-12-15] MEDS: levoFLOXacin 750 MG/150 ML 750 MG/150 ML BAG IVPB SCH (14:36)
[2018-12-15] MEDS: *HR* LORazepam 0.5 MG TABLET PO PRN (21:21)
--- NOTE | 2018-12-15 22:28 | Acute Care Surgery Event Note ---
Date of Encounter: 12/15/18 Time of Encounter: 16:00 CTSP regarding a change in his abdominal exam per nursing. Pt reports a severe abdominal pain after an episode of coughing. The nurse took down his abdominal binder and noted drainage from incision and bulging of abdomen. On exam there is pink Hayden Aid drainage from inferior aspect of incision c/w fascial dehiscence. The skin is intact and the rose are left in place. The is a bulge at the midabdomen the size of a grapefruit that is new. NPO after MN and obtain abd CT in am to evaluate for dehiscence.
[2018-12-15] MEDS ORDERED: Isovue-370 500 ML BOTTLE IVP ONE (23:29)
[2018-12-16] MEDS: Ipratropium/Albuterol Neb 3 ML IH SCH ×7 (00:06→23:11)
[2018-12-16] MEDS: *HR* OxyCODONE/APAP 5/325 TABLET PO PRN ×4 (00:30→21:37)
[2018-12-16] MEDS: Budesonide/Formoterol 160/4.5 1 PUFF INH IH SCH ×3 (07:34→23:10)
--- NOTE | 2018-12-16 08:59 | Internal Med Progress Note ---
Hospitalist Progress Note - Encounter Date of Encounter: 12/16/18 Time of Encounter: 09:00 - Subjective Interval History: No acute events overnight - Exam Vitals: Temp Pulse Resp BP Pulse Ox 98.9 F 100 16 129/71 97 12/16/18 06:56 12/16/18 06:56 12/16/18 07:34 12/16/18 06:56 12/16/18 07:34 Exam: General: Alert and oriented, mildly distress. HEENT:EOMI, pupils equal, round and reactive. Cardiovascular:Normal S1 & S2, No JVD. Pulse irregular but with normal rate Lungs: diminished, mild bibasilar rhonchi R>L Abdomen:Soft, positive tenderness around the abdominal wound dressing Extremities:No deformity or swelling Neurological:Normal cognition and motor skills. Non-focal Skin:Normal color, no rash, no lesions. Pulses:Carotid and radial pulses normal +2. Rest of the physical exam is non contributory - Assessment and Plan (1) Sepsis Current Visit: Yes Status: Acute Assessment and Plan: Developed fever, tachycardia, and leukocytosis and hospitalist service consulted CT showed small bilateral pleural effusions with dense mucus plugging causing complete and partial collapse of the right LL and ML respectively Pulmonary consulted and performed a bronchoscopy today and BAL Descalate antibiotics to levaquin per pulmonary (2) HAP (hospital-acquired pneumonia) Current Visit: Yes Status: Acute Assessment and Plan: Continue levaquin (3) COPD (chronic obstructive pulmonary disease) Current Visit: Yes Status: Acute Assessment and Plan: Continue brochodilators as needed round the clock (4) Wound, open, abdominal wall, anterior Current Visit: Yes Status: Acute Assessment and Plan: Management per surgery (5) CAD (coronary artery disease) Current Visit: Yes Status: Chronic Assessment and Plan: home meds resumed (6) Afib Current Visit: Yes Status: Chronic Assessment and Plan: Continue rate control with beta blockers (7) Infected prosthetic mesh of abdominal wall Current Visit: Yes Status: Acute Assessment and Plan: Management per surgery - Time Spent with Patient Total time spent is greater than 50% in coordination of care (as documented) at patient's floor/unit and/or counseling patient: Internal Medicine: Result - Labs CBC & Chem 7: 12/15/18 03:40 12/15/18 03:40 - ABG Interpretation ABG results: PT/INR, D-dimer PT 13.2 Seconds (9.4-12.1) H 12/10/18 18:42 Consult Discharge Plan - Plan Referrals: Dane Justin MD [Primary Care Provider] - Carlita Mccabe CNP [Advanced Practice Nurse] - 12/26/18 10:15 am (1) Sepsis Qualifiers: Sepsis type: sepsis due to unspecified organism Qualified Code(s): A41.9 - Sepsis, unspecified organism (3) COPD (chronic obstructive pulmonary disease) Qualifiers: COPD type: chronic bronchitis Qualified Code(s): J41.0 - Simple chronic bronchitis (4) Wound, open, abdominal wall, anterior Qualifiers: Encounter type: initial encounter Qualified Code(s): S31.109A - Unspecified open wound of abdominal wall, unspecified quadrant without penetration into peritoneal cavity, initial encounter (5) CAD (coronary artery disease) Qualifiers: Coronary Disease-Associated Artery/Lesion type: [place] artery [place] vs. transplanted heart: [place] heart Associated angina: without angina Qualified Code(s): I25.10 - Atherosclerotic heart disease of [place] coronary artery without angina pectoris (6) Afib Qualifiers: Atrial fibrillation type: unspecified Qualified Code(s): I48.91 - Unspecified atrial fibrillation (7) Infected prosthetic mesh of abdominal wall Qualifiers: Encounter type: subsequent encounter Qualified Code(s): T85.79XD - Infection and inflammatory reaction due to other internal prosthetic devices, implants and grafts, subsequent encounter
[2018-12-16] MEDS: Spironolactone 25 MG TABLET PO SCH (10:57)
[2018-12-16] MEDS: Metoprolol XL (24 HR) Succ 25 MG TAB.ER.24H PO SCH ×2 (10:57→16:28)
[2018-12-16] MEDS: Furosemide 20 MG TABLET PO SCH (10:57)
--- NOTE | 2018-12-16 12:50 | AcuteCareSurgery Progress Note ---
Date of Encounter: 12/16/18 Time of Encounter: 07:00 - Assessment and Plan (1) Infected prosthetic mesh of abdominal wall Current Visit: Yes Status: Acute Post-op condition is satisfactory. Pt tolerating cardiac diet. Leukocytosis is resolved. Continue IV abx. Start DC planning. Qualifiers: Encounter type: subsequent encounter Qualified Code(s): T85.79XD - Infection and inflammatory reaction due to other internal prosthetic devices, implants and grafts, subsequent encounter (2) Pneumonia Current Visit: No Status: Acute S/P bronch. Pt feels much better. 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 Qualifiers: Pneumonia type: due to unspecified organism Laterality: unspecified laterality Lung location: unspecified part of lung Qualified Code(s): J18.9 - Pneumonia, unspecified organism (3) Dehiscence of fascia Current Visit: Yes Status: Acute Discussed diagnosis of fascial dehiscence with pt and his . The skin is intact but, the drainage from the incision is considerable. CT scan confirms a moderate to large fascial dehiscence. Recommendation of repair of fascial dehiscence is discussed. Procedure, risk and benefits of surgery are discussed. Risk for this surgery are bleeding, infection and recurrent dehiscence. Also, his risk for respiratory complication is higher than average due to his COPD and pneumonia. Pt and his understand all this and wish to proceed as advised. Maintain NPO. Consent for surgery is obtained. Sugery is scheduled. Qualifiers: Qualified Code(s): T81.30XA - Disruption of wound, unspecified, initial encounter Subjective Narrative: Pt reported yesterday that he felt his abdomen "give" after a fit of coughing. He states that immediately thereafter a large amount of thin, light red drainage came from lower part of abdominal incision. He also noted a large bulge in his mid to lower midline incision. Today he reports his pain is present but, stable. The drainage seems to be getting less but, continues. He reports that he con tinues to cough. He denies any BM since his surgery last week. He continue to cough and have SOB. +acute exacerbation of COPD and post-op pneumonia are subsiding and being managed by pulmonology. Objective Vital Signs - Last 8 Hours Temp Pulse Resp BP Pulse Ox 12/16/18 11:08 16 97 12/16/18 10:56 98.1 F 100 16 130/76 96 12/16/18 07:34 16 97 12/16/18 06:56 98.9 F 100 18 129/71 97 12/16/18 04:55 18 97 Intake and Output 12/15/18 12/16/18 12/16/18 23:59 07:59 15:59 Intake Total 390 / 750 0 / 0 0 / 0 Output Total 1300 / 1750 450 / 1750 Balance 390 / 750 -1300 / -1750 -450 / -1750 Intake: IV Fluids 150 / 150 Levaquin Premix 750mg/150 mL 150 / 150 750 mg In 150 ml @ 100 mls/hr IVPB Q24H PENDING SALE TO [facility] Rx#:[id number] Oral 240 / 600 0 / 0 0 / 0 Output: Urine 400 / 400 Catheter 900 / 1350 450 / 1350 Other: Meal Dinner Percent of Meal Consumed 100% Weight 65.2 kg Blood Glucose* 114 Patient Weight 12/16/18 23:59 Weight 65.2 kg - General physical appearance moderate distress, moderate pain - Eyes PERRL, normal ocular movement - ENT no congestion, dry mucosa - Neck Neck exam: trachea midline, no lymphadectomy, no venous distension - Respiratory normal respiratory effort wheezing: bilateral, rales: bilateral - Cardiovascular Cardiovascular exam: Present: RRR. Absent: JVD - Abdomen Abdomen: Present: bowel sounds present (hypoactive), distended Abdominal Tenderness: diffusely Additional Comments: Light pink Hayden Aid fluid c/w dehiscence is draining from inferior aspect of incision and palpable fascial defect is appreciated bilaterally from umbilicus inferiorly. - Incision Incision: Present: draining, clean and dry. Absent: intact - Genitourinary normal penis with no external lesions - Integumentary no rash - Neurologic CN 2-12 grossly intact, normal coordination - Musculoskeletal normal posture - Psychiatric oriented to time, oriented to person, oriented to place - Labs 12/15/18 03:40 12/15/18 03:40 Consult Discharge Plan - Plan Referrals: Dane Justin MD [Primary Care Provider] - Carlita Mccabe CNP [Advanced Practice Nurse] - 12/26/18 10:15 am
[2018-12-16] MEDS: levoFLOXacin 750 MG/150 ML 750 MG/150 ML BAG IVPB SCH (16:28)
--- NOTE | 2018-12-16 17:50 | Anesthesia Evaluation PreOp ---
Date of Encounter: 12/16/18 Time of Encounter: 17:45 - Past History Planned Operation: Repair Fascial Dehiscence POD#6 s/p bowel resection Cardiac History: MS (2003), HTN, Hyperlipidemia, Cardiac Stent (stents x 3), Other (Cardiomyopathy 15% now 45%. 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 +MTHFR heterozygosity), Other (RA) Anesthesia History: No Prior Anesthetic Complications, Past Anesthesia (Excisonal debridement/Bowel resection/Mesh explant 12/10/2018) Alcohol Use: heavy Drug use: none Medications and Allergies Clopidogrel [Plavix] 75 mg PO QAM 01/25/16 [History] Omeprazole [PriLOSEC] 20 mg PO QAM 01/25/16 [History] Atorvastatin [Lipitor] 40 mg PO HS 07/17/16 [History] Fluticasone/Salmeterol [Advair 500-50 Diskus] 1 each IH BID 04/08/17 [History] Nitroglycerin [Nitrostat] 0.4 mg PO Q5M PRN 06/14/17 [History] Tamsulosin [Flomax] 0.4 mg PO BID 06/14/17 [History] LORazepam [Ativan] 0.5 mg PO HS PRN 07/12/17 [History] Spironolactone [Aldactone] 25 mg PO QAM 07/12/17 [History] Furosemide [Lasix] 20 mg PO BID 07/23/17 [History] Rivaroxaban [Xarelto] 20 mg PO HS 09/25/18 [History] Albuterol Neb [Proventil Neb] 2.5 mg IH Q6H PRN 12/10/18 [History] Ferrous Sulfate 325 mg PO QAM 12/10/18 [History] Lisinopril 2.5 mg PO QAM 12/10/18 [History] Metoprolol XL (24 HR) Succ [Toprol Xl] 12.5 mg PO QAM 12/10/18 [History] Allergy/AdvReac Type Severity Reaction Status Date / Time Amoxicillin Allergy Mild Rash Verified 12/10/18 11:45 - Meds/Allergy Pre-op Review Medications Reviewed: Yes Allergies Reviewed: Yes Beta Blockers on Current Med List: Yes (Metoprolol) If Beta Blockers taken, Date/Time (Last Dose taken): 12/16/2018 @ 1628 Anesthesia Results - Labs 12/15/18 03:40 12/15/18 03:40 Impressions Chest X-Ray 12/13/18 06:19 IMPRESSION: 1. Small right pleural effusion with mild bibasilar airspace disease, representing either atelectasis, pneumonia, or aspiration. 2. Additional mild curvilinear opacity within the mid left lung represents either additional atelectasis or pneumonia. 3. Small nodular densities overlying the right upper lung zone, possibly artifactual. However, as pulmonary nodules are in the differential, consider further characterization with a follow-up chest CT, preferably with contrast. D/ / Jace Gonzalez MD / Jace Gonzalez MD Interpreting Provider: Jace Gonzalez MD Chest CT 12/13/18 10:15 IMPRESSION: 1. Small bilateral pleural effusions with dense mucous plugging within the right middle and right lower lobe bronchi, causing complete consolidation and collapse of the right lower lobe and partial collapse of the right middle lobe. 2. Additional mild consolidative opacity within left lower lobe likely reflects passive atelectasis. 3. Emphysema. 4. Multiple scattered pulmonary nodules throughout both lungs, a few of which account for the previously described chest x-ray abnormality. The largest nodule lies within the posterior left upper lobe and measures 19 x 10 mm. Further follow-up of these nodules is as advised below. 5. Postoperative changes along the mid and lower anterior abdominal wall with a thin 10 x 2 cm fluid collection within the anterior subcutaneous soft tissues, most likely a postoperative seroma or hematoma. No definite postoperative abscess is identified within the subcutaneous soft tissues or peritoneal space. 6. No acute process within the abdomen or pelvis. Intraperitoneal free air is likely postoperative in etiology. RECOMMENDATIONS: Fleischner Society guidelines for follow-up and management of incidentally detected pulmonary nodules: Multiple Solid Nodules: Nodule size greater than 8 mm In a low-risk patient, CT at 3-6 months, then consider CT at 18-24 months. In a high-risk patient, CT at 3-6 months, then CT at 18-24 months. Radiology 2017 http://pubs.[facility]na.org/doi/full/10.1148/radiol.[email or web address] D/ / 12/13/2018 11:37:30 Jace Gonzalez MD / benjamin Interpreting Provider: Jace Gonzalez MD Abdomen/Pelvis CT 12/16/18 08:00 IMPRESSION: 1. Postoperative changes along the mid to lower abdomen with small bowel resection. Previously noted thin fluid collection along the subcutaneous soft tissues is no longer visualized however dehiscence of the underlying fascia has progressed with herniation of fat and a small bowel anastomosis in this region. No bowel obstruction. 2. Colonic dilation likely related to ileus. 3. Small volume ascites some of which is high density within the pelvis and may reflect hemorrhagic or proteinaceous material. 4. Anasarca. 5. Improving right lower lobe pneumonia. 6. High-density material within the gallbladder either stones or sludge. The findings were sent to the Radiology Results Communication Center at 9:46 am on 12/16/2018to be communicated to a licensed caregiver. D/ / 12/16/2018 10:07:39 Lisa García MD / Capri Wilson Interpreting Provider: Lisa García MD Laboratory Results 12/16/18 17:08 POC Glucose 104 H - Imaging EKG: report reviewed (72bpm - SINUS RHYTHM MODERATE T-WAVE ABNORMALITY, CONSIDER LATERAL ISCHEMIA Electronically Signed On 11-25-2018 17:27:25 EDT by Sirisha Bean) Additional studies: ECHO 09/03/2018 EV/EV echocardiogram w enhance Impressions: LVEF 45%.Mild global left ventricular systolic dysfunction. Normal left ventricular diastolic function. Normal right ventricular structure and function. Mild tricuspid regurgitation. Mild pulmonary hypertension. Left Ventricular Wall Motion: Rest Echo Findings The apex, apical inferior, mid inferior, basal inferior, apical anterior, mid anterior, basal anterior, apical septal, mid inferior septal, basal inferior septal, apical lateral, mid anterior lateral, basal anterior lateral, mid anterior septal, mid inferior lateral, basal anterior septal and basal inferior lateral yeager were hypokinetic. Anesthesia Exam Vital Signs Temp Pulse Resp BP Pulse Ox 12/16/18 16:01 16 98 12/16/18 14:55 98.2 F 104 16 121/77 98 12/16/18 11:08 16 97 12/16/18 10:56 98.1 F 100 16 130/76 96 12/16/18 07:34 16 97 12/16/18 06:56 98.9 F 100 18 129/71 97 12/16/18 04:55 18 97 12/16/18 04:37 98.2 F 87 18 119/75 100 12/16/18 00:48 97.9 F 98 18 112/75 98 12/16/18 00:06 18 97 12/15/18 20:39 98.0 F 105 16 136/78 97 12/15/18 19:54 18 97 Intake and Output 12/16/18 12/16/18 12/16/18 07:59 15:59 23:59 Intake Total 0 / 0 0 / 0 Output Total 1300 / 1750 450 / 1750 Balance -1300 / -1750 -450 / -1750 Intake: Oral 0 / 0 0 / 0 Output: Urine 400 / 400 Catheter 900 / 1350 450 / 1350 Other: Weight 65.2 kg Blood Glucose* 114 104 Patient Weight 12/16/18 23:59 Weight 65.2 kg Height: 5'6" Weight: 143# BMI = 23 NPO (# of Hours): MNOc - HEENT Pupil (Motor): Pupils equal, EOMI Mallampati: III Teeth: Edentulous (upper) Denture Type: Upper: Complete - ADJUNCT PHILOSOPHY FACULTY LOC: Oriented ADJUNCT PHILOSOPHY FACULTY Motor: Normal RUE, Normal LUE, Normal RLE, Normal LLE, Normal Face ADJUNCT PHILOSOPHY FACULTY Sensory: Normal: RUE, LUE, RLE, LLE, Face - Cardiac Rhythm: Regular Murmur: None JVD: No - Pulmonary Breath Sounds: bilateral Clear Respiratory Effort: Symmetrical Anesthesia Assess/Plan ASA Score: 4 (Cardiomyopathy, CAD, COPD, Home O2, RA,) Anes Supervising Prov Stmt: Pt seen/evaluated, VSS and has met criteria for discharge to home. Amandeep Lewis MD
[2018-12-16] MEDS ORDERED: CefOXitin 1,000 MG VIAL ONE ×2 (17:55→18:46)
[2018-12-16] MEDS ORDERED: *HR* Propofol 200 MG/20 ML VIAL IVP ONE (18:04)
[2018-12-16] MEDS ORDERED: *HR* FentaNYL (PF) 100 MCG/2 ML VIAL ONE (18:04)
[2018-12-16] MEDS ORDERED: Lidocaine -MPF 2% 2 ML VIAL ONE (18:05)
[2018-12-16] MEDS ORDERED: *HR* Succinylcholine 200 MG/10 ML VIAL IVP ONE (18:07)
[2018-12-16] MEDS ORDERED: *HR* Rocuronium Bromide 50 MG/5 ML VIAL ONE (18:07)
[2018-12-16] MEDS ORDERED: Acetaminophen IV 1,000 MG/100 ML INFUS..BTL ONE (18:11)
[2018-12-16] MEDS ORDERED: Famotidine 20 MG/2 ML VIAL ONE (18:11)
[2018-12-16] MEDS ORDERED: Ondansetron 4 MG/2 ML VIAL ONE ×2 (18:32)
[2018-12-16] MEDS ORDERED: Dexamethasone 4 MG/ML VIAL ONE (18:32)
[2018-12-16] MEDS ORDERED: *HR* PHENYLEPHRINE 1,000 MCG/10 ML SYRINGE IVP ONE (18:39)
[2018-12-16] MEDS ORDERED: *HR* HYDROMORPHONE 2 MG/ML VIAL ONE (19:36)
--- NOTE | 2018-12-16 20:41 | Operative Note ---
Date of procedure: 12/16/18 Pre-op diagnosis: Fascial dehiscence Post-op diagnosis: same Procedure: Exploratory laparotomy with repair of fascial dehiscence Complications: None Anesthesia: GETA Surgeon: Clint Yee Was there an assistant construction superintendent present: Yes Flight Dynamicist: Celia Worley Estimated blood loss (cc): 30 Specimen: None Condition: stable Disposition: PACU Procedure in Detail: This 83-year-old male was taken to the operating room and placed in the supine position. Anterior abdominal wall was prepped and draped in the usual sterile fashion. Previous midline incision success rose are removed after the induct ion of general anesthesia and anterior abdominal wall prepping. Immediately encountered was a fascial dehiscence in the mid part of the incision. Intra- abdominal cavity is entered. A few and mild intra-abdominal adhesions are lysed bluntly. The intra-abdominal cavity is then copiously irrigated. Retention sutures are placed in the lateral part of the anterior abdominal wall using #2 Nurolon and tagged with hemostats. Two relaxing incisions are made in the external oblique fascia bilaterally. These are then covered with an onlay mesh that is tacked in place using 2-0 Vicryl. The skin incisions overlying the relaxing fascial incision is then closed using 4-0 Monocryl subcuticular stitches. Interior rectus fascia is then approximated in the midline and closed using #1 PDS [id number] sutures. A 10 flat MISA drain is placed in the just deep to the fascia. The drain is sewn in using 3-0 nylon sutures. Skin is reapproximated using rose. The risks retention sutures are tied and bridged. Sterile dressing is placed and bulb is placed on drain. Patient tolerated procedure well was taken to PACU in good condition.
[2018-12-16] MEDS ORDERED: Ondansetron 4 MG/2 ML VIAL IVP PRN (20:57)
[2018-12-16] MEDS ORDERED: *HR* Metoprolol 5 MG/5 ML VIAL IVP PRN (20:57)
[2018-12-16] MEDS ORDERED: Nitroglycerin 0.4 MG TAB.SUBL SL PRN (20:57)
[2018-12-16] MEDS ORDERED: Albuterol 2.5 MG/3 ML NEBULIZER IH PRN (20:57)
[2018-12-16] MEDS: *HR* LORazepam 0.5 MG TABLET PO PRN (21:37)
--- NOTE | 2018-12-16 22:14 | Anesthesia Evaluation Post Op ---
Date of Encounter: 12/16/18 Time of Encounter: 20:33 - Vital Signs Vital Signs: Vital Signs Temp Pulse Resp BP Pulse Ox 12/16/18 20:34 98.7 F 92 18 128/95 100 12/16/18 20:24 98 18 124/76 99 12/16/18 20:14 90 18 121/66 99 12/16/18 20:04 98.4 F 94 16 120/63 100 12/16/18 16:01 16 98 12/16/18 14:55 98.2 F 104 16 121/77 98 12/16/18 11:08 16 97 12/16/18 10:56 98.1 F 100 16 130/76 96 12/16/18 07:34 16 97 12/16/18 06:56 98.9 F 100 18 129/71 97 12/16/18 04:55 18 97 12/16/18 04:37 98.2 F 87 18 119/75 100 12/16/18 00:48 97.9 F 98 18 112/75 98 12/16/18 00:06 18 97 Intake and Output 12/16/18 12/16/18 12/16/18 07:59 15:59 23:59 Intake Total 0 / 0 0 / 0 Output Total 1299 Balance -1299 - - Intake: Oral 0 / 0 0 / 0 Output: Urine 400 / 400 Estimated Blood Loss 30 / 30 Urine Amount (Catheter) 125 / 125 Catheter 900 / 1350 450 / 1350 Wound Drainage 60 / 60 Left Upper Abdomen 20 / 20 Other: Weight 65.2 kg Blood Glucose* 114 104 Patient Weight 12/16/18 23:59 Weight 65.2 kg - Airway Airway: Non-obstructed - Cardiovascular Regular Rate - Mental Status Mental Status: Alert & Oriented, Answers Appropriately - Pain Pain Scale: 4 Pain Scale used: Numeric (1 - 10) - Nausea Vomiting Nausea Vomiting: Not Present - Hydration Hydration: Ice chips, Ta catheter - Discharge PostOp Status: Transfer Patient to floor Anes Supervising Prov Stmt: Pt seen/evaluated, VSS and has met criteria for discharge to home. - MD Debbie
[2018-12-16] MEDS: Acetaminophen IV 1,000 MG/100 ML INFUS..BTL IVPB SCH (23:29)
[2018-12-17] MEDS: Morphine Sulfate 2 MG/ML SYRINGE IVP PRN ×7 (02:01→22:02)
[2018-12-17] MEDS: Ipratropium/Albuterol Neb 3 ML IH SCH ×6 (04:02→22:58)
[2018-12-17] MEDS: *HR* OxyCODONE/APAP 5/325 TABLET PO PRN ×4 (04:44→19:53)
[2018-12-17] MEDS: Acetaminophen IV 1,000 MG/100 ML INFUS..BTL IVPB SCH ×4 (05:44→23:49)
[2018-12-17 05:57] LABS: BUN/Creatinine Ratio 20 (6-26); Blood Urea Nitrogen 15 mg/dL (8-23); Calcium 8.7 mg/dL (8.6-10.3); Carbon Dioxide 23 mEq/L (23-29); Chloride 97 mEq/L (98-107); Glucose 126 mg/dL (70-105); Osmolality,Calculated 278 (280-300); Potassium 4.6 mEq/L (3.5-5.1); Sodium 133 mEq/L (136-145); eGFR For African Americans > 60 (> 60); eGFR For Non-African Americans > 60 (> 60)
[2018-12-17 06:44] LABS: Basophils % 0.2 %; Hematocrit 28.4 % (37.5-50.1); Hemoglobin 9.5 g/dL (12.9-16.9); Immature Granulocytes % 0.7 % (0-4); Lymphocytes # 0.5 K/mcL (0.6-4.6); Lymphocytes % 4.9 %; Mean Corpuscular HGB Conc 33.5 g/dL (31.6-35.5); Mean Corpuscular Hemoglobin 31.9 pg (28.0-33.3); Mean Corpuscular Volume 95.3 fL (83.0-100.0); Mean Platelet Volume 9.9 fL (9.4-12.4); Monocytes # 0.8 K/mcL (0.0-1.3); Monocytes % 7.7 %; Neutrophils # 8.6 K/mcL (1.6-8.9); Platelet Count 360 K/mcL (140-400); Red Blood Count 2.98 M/mcL (4.19-5.50); Red Cell Distribution Width 12.8 % (11.5-14.5); Segmented Neutrophils % 86.5 %
[2018-12-17] MEDS: Budesonide/Formoterol 160/4.5 1 PUFF INH IH SCH ×2 (07:32→19:37)
[2018-12-17] MEDS: Spironolactone 25 MG TABLET PO SCH (08:20)
[2018-12-17] MEDS: Furosemide 20 MG TABLET PO SCH ×2 (08:21→15:39)
[2018-12-17] MEDS ORDERED: Metoprolol XL (24 HR) Succ 25 MG TAB.ER.24H PO ONE (08:35)
--- NOTE | 2018-12-17 08:47 | AcuteCareSurgery Progress Note ---
Date of Encounter: 12/17/18 Time of Encounter: 07:25 - Assessment and Plan (1) Infected prosthetic mesh of abdominal wall Current Visit: Yes Status: Acute The patient is doing well after removal of infected mesh and the anterior abdominal wall. He has pneumonia with mucous plugging of the right lower lobe. Bronchoscopy will be planned for later today. Qualifiers: Encounter type: subsequent encounter Qualified Code(s): T85.79XD - Infection and inflammatory reaction due to other internal prosthetic devices, implants and grafts, subsequent encounter (2) Hypokalemia Current Visit: Yes Status: Resolved Potassium supplementation today. The patient is nothing by mouth for bronchoscopy. 20 mEq IV (3) Dehiscence of fascia Current Visit: Yes Status: Acute The patient is postoperative day 1 from closure of fascial dehiscence. He has retention stitches in place. Overall condition is stable, however, this will greatly complicate treatment of his right lower lobe pneumonia. Continue antibiotics and supportive care. Qualifiers: Encounter type: subsequent encounter Qualified Code(s): T81.30XD - Disruption of wound, unspecified, subsequent encounter Subjective Narrative: The patient is postoperative day 1 from closure of fascial dehiscence. No i nfection or purulence was noted at the time of the procedure. The patient had a severe coughing episode followed by fascial dehiscence. The patient's closed with interrupted [id number] stitches and retention sutures. He is currently under treatment for right lower lobe pneumonia. Pain control is poor. There is a Jus-Burroughs drain in place draining serosanguineous fluid area Objective Vital Signs - Last 8 Hours Temp Pulse Resp BP Pulse Ox 12/17/18 07:33 18 98 12/17/18 07:30 98.3 F 88 14 143/84 97 12/17/18 04:04 16 98 12/17/18 03:31 97.8 F 95 18 118/82 99 Intake and Output 12/16/18 12/17/18 12/17/18 23:59 07:59 15:59 Intake Total 100 / 100 100 / 100 Output Total 215 / 1965 445 / 445 Balance -115 / -1865 -345 / -345 Intake: IV Fluids 100 / 100 100 / 100 Ofirmev 1,000 mg/100 ml 1,000 100 / 100 100 / 100 mg In 100 ml @ 400 mls/hr IVPB Q6HR [facility] Rx#:[id number] Oral 0 / 0 Output: Estimated Blood Loss 30 / 30 Urine Amount (Catheter) 125 / 125 Catheter 375 / 375 Wound Drainage 60 / 60 70 / 70 Left Upper Abdomen 20 70 / 70 Other: # Bowel Movements 0 Blood Glucose* 104 - General physical appearance well developed, well nourished, chronically ill - Respiratory crackles: right, wheezing: right - Abdomen Abdomen: Present: tender - Incision Incision: Present: clean and dry - Neurologic CN 2-12 grossly intact, normal coordination, normal sensation - Psychiatric oriented to time, oriented to person, oriented to place, speech is normal, memory intact - Labs 12/17/18 06:25 12/17/18 04:41 Diabetes panel 12/17/18 Range/Units 04:41 Sodium 133 L (136-145) mEq/L Potassium 4.6 (3.5-5.1) mEq/L Chloride 97 L (98-107) mEq/L Carbon Dioxide 23 (23-29) mEq/L BUN 15 (8-23) mg/dL Creatinine 0.76 (0.70-1.30) mg/dL Glucose 126 H (70-105) mg/dL Calcium 8.7 (8.6-10.3) mg/dL Calcium panel 12/17/18 Range/Units 04:41 Calcium 8.7 (8.6-10.3) mg/dL Pituitary panel 12/17/18 Range/Units 04:41 Sodium 133 L (136-145) mEq/L Potassium 4.6 (3.5-5.1) mEq/L Chloride 97 L (98-107) mEq/L Carbon Dioxide 23 (23-29) mEq/L BUN 15 (8-23) mg/dL Creatinine 0.76 (0.70-1.30) mg/dL Glucose 126 H (70-105) mg/dL Calcium 8.7 (8.6-10.3) mg/dL Adrenal panel 12/17/18 Range/Units 04:41 Sodium 133 L (136-145) mEq/L Potassium 4.6 (3.5-5.1) mEq/L Chloride 97 L (98-107) mEq/L Carbon Dioxide 23 (23-29) mEq/L BUN 15 (8-23) mg/dL Creatinine 0.76 (0.70-1.30) mg/dL Glucose 126 H (70-105) mg/dL Calcium 8.7 (8.6-10.3) mg/dL Consult Discharge Plan - Plan Referrals: Dane Justin MD [Primary Care Provider] - Carlita Mccabe CNP [Advanced Practice Nurse] - 12/26/18 10:15 am
[2018-12-17] MEDS ORDERED: Metoprolol XL (24 HR) Succ 25 MG TAB.ER.24H PO SCH (09:00)
[2018-12-17 11:20] LABS: Influenza A PCR Body Fluid NOT DETECTED; Influenza B PCR Body Fluid NOT DETECTED; RVP Body Fluid Source BAL RML
[2018-12-17 11:41] LABS: RSV PCR Body Fluid NOT DETECTED
--- NOTE | 2018-12-17 12:28 | Internal Med Progress Note ---
Hospitalist Progress Note - Encounter Date of Encounter: 12/17/18 Time of Encounter: 09:15 - Subjective Interval History: Underwent exp lap with repair of fascial dehiscence yesterday uneventfully. Other than expected post-op discomfort, no chest pain, SOB, or sputum production. No fever overnight - Exam Vitals: Temp Pulse Resp BP Pulse Ox 98.4 F 97 18 138/73 95 12/17/18 11:35 12/17/18 11:35 12/17/18 11:35 12/17/18 11:35 12/17/18 11:49 Exam: General: Alert and oriented, not in distress Cardiovascular:Normal S1 & S2, No JVD. Pulse irregular and borderline tachycardic Lungs: Mostly clear to auscultation Abdomen:Soft, abdominal binder in-situ Extremities:No deformity or swelling Neurological:Normal cognition and motor skills. Non-focal - Assessment and Plan (1) Sepsis Current Visit: Yes Status: Acute Assessment and Plan: was initially admitted for infected mesh for which he underwent op but developed pneumonia with mucus plugging noted on CT 12/13 bronchoscopy on 12/15: Mucous plug in bronchus intermedius strep/legionella -ve, MRSA screen -ve on levaquin D5, complete 7 day course aggressive pulmonary toileting, optimize pain control (2) HAP (hospital-acquired pneumonia) Current Visit: Yes Status: Acute Assessment and Plan: abx as above (3) Afib Current Visit: Yes Status: Chronic Assessment and Plan: will increase bb to 25mg QD PRN lopressor resume AC once cleared by primary team (4) Wound, open, abdominal wall, anterior Current Visit: Yes Status: Acute Assessment and Plan: underwent repair of dehiscence on 12/16, POD #1 mx per primary (5) Infected prosthetic mesh of abdominal wall Current Visit: Yes Status: Acute (6) CAD (coronary artery disease) Current Visit: Yes Status: Chronic Assessment and Plan: home meds resumed - Time Spent with Patient Total time spent is greater than 50% in coordination of care (as documented) at patient's floor/unit and/or counseling patient: 25 - 35 minutes Plan of Care Discussed with: aerodynamic consultant (discussed with surgery) Internal Medicine: Result - Labs CBC & Chem 7: 12/17/18 06:25 12/17/18 04:41 Labs: Short CBC 12/17/18 Range/Units 06:25 WBC 10.0 (4.3-11.1) K/mcL Hgb 9.5 L (12.9-16.9) g/dL Hct 28.4 L (37.5-50.1) % Plt Count 360 D (140-400) K/mcL Neutrophils # 8.6 (1.6-8.9) K/mcL BMP 12/17/18 04:41 Sodium 133 L Potassium 4.6 Chloride 97 L Carbon Dioxide 23 BUN 15 Creatinine 0.76 Glucose 126 H Calcium 8.7 - ABG Interpretation ABG results: PT/INR, D-dimer PT 13.2 Seconds (9.4-12.1) H 12/10/18 18:42 Consult Discharge Plan - Plan Referrals: Dane Justin MD [Primary Care Provider] - Carlita Mccabe CNP [Advanced Practice Nurse] - 12/26/18 10:15 am (1) Sepsis Qualifiers: Sepsis type: sepsis due to unspecified organism Qualified Code(s): A41.9 - Sepsis, unspecified organism (3) Afib Qualifiers: Atrial fibrillation type: unspecified Qualified Code(s): I48.91 - Unspecified atrial fibrillation (4) Wound, open, abdominal wall, anterior Qualifiers: Encounter type: initial encounter Qualified Code(s): S31.109A - Unspecified open wound of abdominal wall, unspecified quadrant without penetration into peritoneal cavity, initial encounter (5) Infected prosthetic mesh of abdominal wall Qualifiers: Encounter type: subsequent encounter Qualified Code(s): T85.79XD - Infection and inflammatory reaction due to other internal prosthetic devices, implants and grafts, subsequent encounter (6) CAD (coronary artery disease) Qualifiers: Coronary Disease-Associated Artery/Lesion type: [place] artery [place] vs. transplanted heart: [place] heart Associated angina: without angina Qualified Code(s): I25.10 - Atherosclerotic heart disease of [place] coronary artery without angina pectoris
[2018-12-17] MEDS ORDERED: levoFLOXacin 750 MG/150 ML 750 MG/150 ML BAG IVPB SCH (15:00)
[2018-12-17] MEDS: *HR* LORazepam 0.5 MG TABLET PO PRN (22:05)
[2018-12-18] MEDS: Morphine Sulfate 2 MG/ML SYRINGE IVP PRN ×2 (00:07→02:48)
[2018-12-18] MEDS: Ipratropium/Albuterol Neb 3 ML IH SCH ×8 (04:16→23:09)
[2018-12-18] MEDS: *HR* OxyCODONE/APAP 5/325 TABLET PO PRN ×4 (04:27→20:45)
[2018-12-18 04:44] LABS: Basophils % 0.1 %; Eosinophils # 0.1 K/mcL (0.0-0.6); Eosinophils % 0.4 %; Hematocrit 30.5 % (37.5-50.1); Hemoglobin 10.3 g/dL (12.9-16.9); Immature Granulocytes % 0.9 % (0-4); Lymphocytes # 1.3 K/mcL (0.6-4.6); Lymphocytes % 6.2 %; Mean Corpuscular HGB Conc 33.8 g/dL (31.6-35.5); Mean Corpuscular Hemoglobin 31.1 pg (28.0-33.3); Mean Corpuscular Volume 92.1 fL (83.0-100.0); Mean Platelet Volume 9.6 fL (9.4-12.4); Monocytes # 2.1 K/mcL (0.0-1.3); Neutrophils # 17.2 K/mcL (1.6-8.9); Platelet Count 471 K/mcL (140-400); Red Blood Count 3.31 M/mcL (4.19-5.50); Red Cell Distribution Width 12.9 % (11.5-14.5); Segmented Neutrophils % 82.4 %
[2018-12-18 04:47] LABS: White Blood Count 20.9 K/mcL (4.3-11.1)
[2018-12-18 05:03] LABS: BUN/Creatinine Ratio 18 (6-26); Blood Urea Nitrogen 16 mg/dL (8-23); Calcium 8.4 mg/dL (8.6-10.3); Carbon Dioxide 25 mEq/L (23-29); Chloride 97 mEq/L (98-107); Glucose 119 mg/dL (70-105); Osmolality,Calculated 272 (280-300); Potassium 4.1 mEq/L (3.5-5.1); Sodium 130 mEq/L (136-145); eGFR For African Americans > 60 (> 60); eGFR For Non-African Americans > 60 (> 60)
[2018-12-18] MEDS: Acetaminophen IV 1,000 MG/100 ML INFUS..BTL IVPB SCH ×3 (05:21→22:58)
[2018-12-18] MEDS: Spironolactone 25 MG TABLET PO SCH (08:47)
[2018-12-18] MEDS ORDERED: Metoprolol XL (24 HR) Succ 25 MG TAB.ER.24H PO SCH ×2 (09:00)
[2018-12-18] MEDS ORDERED: *HR* LORazepam 2 MG/ML VIAL IVP SCH (09:00)
[2018-12-18] MEDS ORDERED: Potassium Chloride Elixir 20 MEQ/15 ML UDC PO SCH (09:00)
[2018-12-18] MEDS: Budesonide/Formoterol 160/4.5 1 PUFF INH IH SCH ×2 (11:09→20:20)
--- NOTE | 2018-12-18 11:26 | Internal Med Progress Note ---
Hospitalist Progress Note - Encounter Date of Encounter: 12/18/18 Time of Encounter: 09:00 - Subjective Interval History: States that his abdominal pain is poorly controlled but denies any worsening SOB, cough, or sputum production. No fever overnight but noted significant increase in his leukocytosis over the last 24 hours. - Exam Vitals: Temp Pulse Resp BP Pulse Ox 98.1 F 105 18 108/72 96 12/18/18 07:50 12/18/18 07:50 12/18/18 07:50 12/18/18 07:50 12/18/18 10:39 Exam: General: Alert and oriented, not in distress Cardiovascular:Normal S1 & S2, No JVD. Pulse irregular and tachycardic Lungs: Mostly clear to auscultation with diminished breath sounds at the lung bases Abdomen:Soft, abdominal binder in-situ Extremities:No deformity or swelling Neurological:Normal cognition and motor skills. Non-focal - Assessment and Plan (1) Sepsis Current Visit: Yes Status: Acute Assessment and Plan: was initially admitted for infected mesh for which he underwent op but developed pneumonia with mucus plugging noted on CT 12/13 bronchoscopy on 12/15: Mucous plug in bronchus intermedius strep/legionella -ve, MRSA screen -ve on levaquin D6, complete 7 day course noted leukocytosis today with poorly controlled abdominal pain but without any pulmonary symptoms. No increase in O2 requirement Doubtful that it is due to new, nosocomial pneumonia but he is certainly at risk due to poor ability to manage secretions aggressive pulmonary toileting, optimize pain control will hold off on adding further abx for now (2) HAP (hospital-acquired pneumonia) Current Visit: Yes Status: Acute Assessment and Plan: abx as above (3) Afib Current Visit: Yes Status: Chronic Assessment and Plan: HR likely aggravated by pain optimize pain control will increase bb to 37.5mg QD PRN lopressor resume AC once cleared by primary team (4) Wound, open, abdominal wall, anterior Current Visit: Yes Status: Acute Assessment and Plan: underwent repair of dehiscence on 12/16, POD #2 mx per primary (5) Infected prosthetic mesh of abdominal wall Current Visit: Yes Status: Acute Assessment and Plan: s/p explantation of mesh, management per surgery (6) CAD (coronary artery disease) Current Visit: Yes Status: Chronic Assessment and Plan: home meds resumed - Time Spent with Patient Total time spent is greater than 50% in coordination of care (as documented) at patient's floor/unit and/or counseling patient: 25 - 35 minutes Plan of Care Discussed with: patient Internal Medicine: Result - Labs CBC & Chem 7: 12/18/18 04:35 12/18/18 04:35 Labs: Short CBC 12/18/18 Range/Units 04:35 WBC 20.9 H D (4.3-11.1) K/mcL Hgb 10.3 L (12.9-16.9) g/dL Hct 30.5 L (37.5-50.1) % Plt Count 471 H (140-400) K/mcL Neutrophils # 17.2 H (1.6-8.9) K/mcL BMP 12/18/18 04:35 Sodium 130 L Potassium 4.1 Chloride 97 L Carbon Dioxide 25 BUN 16 Creatinine 0.91 Glucose 119 H Calcium 8.4 L - ABG Interpretation ABG results: PT/INR, D-dimer PT 13.2 Seconds (9.4-12.1) H 12/10/18 18:42 - Impressions Impressions Abdomen/Pelvis CT 12/16/18 08:00 IMPRESSION: 1. Postoperative changes along the mid to lower abdomen with small bowel resection. Previously noted thin fluid collection along the subcutaneous soft tissues is no longer visualized however dehiscence of the underlying fascia has progressed with herniation of fat and a small bowel anastomosis in this region. No bowel obstruction. 2. Colonic dilation likely related to ileus. 3. Small volume ascites some of which is high density within the pelvis and may reflect hemorrhagic or proteinaceous material. 4. Anasarca. 5. Improving right lower lobe pneumonia. 6. High-density material within the gallbladder either stones or sludge. The findings were sent to the Radiology Results Communication [facility] at 9:46 am on 12/16/2018to be communicated to a licensed caregiver. D/ / 12/16/2018 10:07:39 Lisa García MD / Capri Wilson Interpreting Provider: Lisa García MD Consult Discharge Plan - Plan Referrals: Dane Justin MD [Primary Care Provider] - Carlita Mccabe COIL CONNECTOR [Advanced Practice Nurse] - 12/26/18 10:15 am (1) Sepsis Qualifiers: Sepsis type: sepsis due to unspecified organism Qualified Code(s): A41.9 - Sepsis, unspecified organism (3) Afib Qualifiers: Atrial fibrillation type: unspecified Qualified Code(s): I48.91 - Unspecified atrial fibrillation (4) Wound, open, abdominal wall, anterior Qualifiers: Encounter type: initial encounter Qualified Code(s): S31.109A - Unspecified open wound of abdominal wall, unspecified quadrant without penetration into peritoneal cavity, initial encounter (5) Infected prosthetic mesh of abdominal wall Qualifiers: Encounter type: subsequent encounter Qualified Code(s): T85.79XD - Infection and inflammatory reaction due to other internal prosthetic devices, implants and grafts, subsequent encounter (6) CAD (coronary artery disease) Qualifiers: Coronary Disease-Associated Artery/Lesion type: [place] artery [place] vs. transplanted heart: [place] heart Associated angina: without angina Qualified Code(s): I25.10 - Atherosclerotic heart disease of [place] coronary artery without angina pectoris
[2018-12-18] MEDS ORDERED: 0.9 % Sodium Chloride 1,000 ML ONE (11:36)
[2018-12-18] MEDS ORDERED: 0.9 % Sodium Chloride 1,000 ML IVC ONE (11:51)
[2018-12-18] MEDS ORDERED: Cefepime HCl 2,000 MG in 0.9 % Sodium Chloride Mini Bag 100 ML IVPB SCH (11:57)
[2018-12-18] MEDS ORDERED: MetroNIDAZOLE 500 MG/100 ML 500 MG/100 ML BAG IVPB SCH (11:57)
--- NOTE | 2018-12-18 12:00 | AcuteCareSurgery Progress Note ---
Date of Encounter: 12/18/18 Time of Encounter: 08:20 - Assessment and Plan (1) Infected prosthetic mesh of abdominal wall Current Visit: Yes Status: Acute The patient is doing well after removal of infected mesh and the anterior abdominal wall. He has pneumonia with mucous plugging of the right lower lobe. Bronchoscopy will be planned for later today. Qualifiers: Encounter type: subsequent encounter Qualified Code(s): T85.79XD - Infection and inflammatory reaction due to other internal prosthetic devices, implants and grafts, subsequent encounter (2) Hypokalemia Current Visit: Yes Status: Resolved Potassium supplementation today. The patient is nothing by mouth for bronchoscopy. 20 mEq IV (3) Dehiscence of fascia Current Visit: Yes Status: Acute The patient is postoperative day 1 from closure of fascial dehiscence. He has retention stitches in place. Overall condition is stable, however, this will greatly complicate treatment of his right lower lobe pneumonia. Continue antibiotics and supportive care. 12/18/2018. The patient's overall condition is not stable. He has increased leukocytosis despite appropriate antibiotic therapy. He is anxious and has poor pain control. There is no evidence of ongoing infection other than his right lower lobe pneumonia. We will observe his overall clinical course very carefully today. Qualifiers: Encounter type: subsequent encounter Qualified Code(s): T81.30XD - Disruption of wound, unspecified, subsequent encounter Subjective Narrative: The patient is seen and evaluated on an acute care surgery rounds. His pain control is poor and he has complained of anxiety throughout the evening. On auscultation both lung bishop are clear. He does have decreased lung sounds in the right base but there are no rhonchi or wheezes. No bowel sounds she had. Complex midline wound closure intact. The Jus-Burroughs drain is serosanguineous. Next Am very concerned with his level of pain control. He will require increased narcotic therapy. He has been on Ativan on a when necessary basis at night. I think it is reasonable to schedule this on a 12 hour interval. Continue close clinical observation Objective Vital Signs - Last 8 Hours Temp Pulse Resp BP Pulse Ox 12/18/18 10:39 96 12/18/18 07:50 98.1 F 105 18 108/72 96 12/18/18 04:25 98.2 F 108 18 104/64 98 Intake and Output 12/17/18 12/18/1812/18/19 23:59 07:59 15:59 Intake Total 370 / 570 200 / 200 Output Total 1460 / 2035 250 / 250 Balance -1090 / -1465 -50 / -50 Intake: IV Fluids 250 / 450 200 / 200 Ofirmev 1,000 mg/100 ml 1,000 100 / 300 200 / 200 mg In 100 ml @ 400 mls/hr IVPB Q6HR [facility] Rx#:[id number] Levaquin Premix 750mg/150 mL 150 / 150 750 mg In 150 ml @ 100 mls/hr IVPB Q24H [facility] Rx#:[id number] Oral 120 / 120 Output: Catheter 1400 / 1875 200 / 200 Urethral (Ta) 400 / 400 Wound Drainage 60 / 160 50 / 50 Right Upper Abdomen 60 / 90 50 / 50 Other: Meal Lunch # Bowel Movements 0 Weight 65.2 kg Patient Weight 12/18/18 23:59 Weight 65.2 kg - General physical appearance moderate pain, chronically ill, other (Anxious. Poor pain control.) - Respiratory clear to auscultation absent breath sounds: right (Decreased breath sounds right base no wheezes or crackles) - Cardiovascular Cardiovascular exam: Present: RRR, no murmurs/rubs/gallops - Incision Incision: Present: approximated (Complex midline abdominal closure with retention sutures is intact.) - Neurologic CN 2-12 grossly intact, normal coordination, normal sensation - Psychiatric oriented to time, oriented to person, oriented to place, speech is normal, memory intact - Labs 12/18/18 04:35 12/18/18 04:35 Diabetes panel 12/18/18 Range/Units 04:35 Sodium 130 L (136-145) mEq/L Potassium 4.1 (3.5-5.1) mEq/L Chloride 97 L (98-107) mEq/L Carbon Dioxide 25 (23-29) mEq/L BUN 16 (8-23) mg/dL Creatinine 0.91 (0.70-1.30) mg/dL Glucose 119 H (70-105) mg/dL Calcium 8.4 L (8.6-10.3) mg/dL Calcium panel 12/18/18 Range/Units 04:35 Calcium 8.4 L (8.6-10.3) mg/dL Pituitary panel 12/18/18 Range/Units 04:35 Sodium 130 L (136-145) mEq/L Potassium 4.1 (3.5-5.1) mEq/L Chloride 97 L (98-107) mEq/L Carbon Dioxide 25 (23-29) mEq/L BUN 16 (8-23) mg/dL Creatinine 0.91 (0.70-1.30) mg/dL Glucose 119 H (70-105) mg/dL Calcium 8.4 L (8.6-10.3) mg/dL Adrenal panel 12/18/18 Range/Units 04:35 Sodium 130 L (136-145) mEq/L Potassium 4.1 (3.5-5.1) mEq/L Chloride 97 L (98-107) mEq/L Carbon Dioxide 25 (23-29) mEq/L BUN 16 (8-23) mg/dL Creatinine 0.91 (0.70-1.30) mg/dL Glucose 119 H (70-105) mg/dL Calcium 8.4 L (8.6-10.3) mg/dL Consult Discharge Plan - Plan Referrals: Dane Justin MD [Primary Care Provider] - Carlita Mccabe CNP [Advanced Practice Nurse] - 12/26/18 10:15 am
[2018-12-18 12:43] LABS: INR 2.2; Prothrombin Time 25.1 Seconds (9.4-12.1)
[2018-12-18 12:43] LABS: ABG Base Excess -2 mEq/L (-2 to 3); ABG HCO3 22 mEq/L (21-27); ABG Oxygen Saturation 96 % (95-98); ABG PCO2 33 mmHg (35-45); ABG PH 7.43 pH Units (7.32-7.45); ABG PO2 80 mmHg (85-104); ABG TCO2 23 mEq/L (20-26)
[2018-12-18 12:57] LABS: BUN/Creatinine Ratio 21 (6-26); Blood Urea Nitrogen 15 mg/dL (8-23); Calcium 4.8 mg/dL (8.6-10.3); Carbon Dioxide 16 mEq/L (23-29); Chloride 116 mEq/L (98-107); Glucose 89 mg/dL (70-105); Osmolality,Calculated 292 (280-300); Potassium 2.6 mEq/L (3.5-5.1); Sodium 141 mEq/L (136-145); eGFR For African Americans > 60 (> 60); eGFR For Non-African Americans > 60 (> 60)
[2018-12-18 13:31] LABS: Troponin I 0.03 ng/mL (< 0.04)
[2018-12-18] MEDS ORDERED: *HR* Metoprolol 5 MG/5 ML VIAL IVP PRN (13:44)
[2018-12-18] MEDS ORDERED: Nitroglycerin 0.4 MG TAB.SUBL SL PRN (13:44)
[2018-12-18] MEDS ORDERED: Albuterol 2.5 MG/3 ML NEBULIZER IH PRN (13:44)
[2018-12-18 14:41] LABS: VBG Ionized Calcium 1.14 mmol/L (1.15-1.35)
[2018-12-18 14:57] LABS: Hematocrit 33.2 % (37.5-50.1); Lymphocytes # 0.9 K/mcL (0.6-4.6); Lymphocytes % 3.7 %; Mean Corpuscular HGB Conc 32.2 g/dL (31.6-35.5); Mean Corpuscular Hemoglobin 30.7 pg (28.0-33.3); Mean Corpuscular Volume 95.4 fL (83.0-100.0); Mean Platelet Volume 9.8 fL (9.4-12.4); Neutrophils # 20.2 K/mcL (1.6-8.9); Platelet Count 519 K/mcL (140-400); Red Blood Count 3.48 M/mcL (4.19-5.50); Red Cell Distribution Width 13.2 % (11.5-14.5); Segmented Neutrophils % 85.9 %; White Blood Count 23.5 K/mcL (4.3-11.1)
[2018-12-18 15:02] LABS: Hemoglobin 10.7 g/dL (12.9-16.9)
[2018-12-18 15:29] LABS: Platelet Estimate Increased (Normal)
[2018-12-18 15:51] LABS: BUN/Creatinine Ratio 20 (6-26); Blood Urea Nitrogen 24 mg/dL (8-23); Calcium 8.2 mg/dL (8.6-10.3); Carbon Dioxide 25 mEq/L (23-29); Chloride 97 mEq/L (98-107); Glucose 114 mg/dL (70-105); Osmolality,Calculated 277 (280-300); Potassium 4.6 mEq/L (3.5-5.1); Sodium 131 mEq/L (136-145); eGFR For African Americans > 60 (> 60); eGFR For Non-African Americans 58 (> 60)
[2018-12-18] MEDS ORDERED: Lidocaine -MPF 1% 5 ML AMPUL INFILT ONE (15:58)
[2018-12-18] MEDS ORDERED: Calcium Gluconate 1gm/50mL 1 GM/50 ML BAG IVPB PRN (16:37)
[2018-12-18] MEDS ORDERED: Potassium Chloride 40 MEQ/200 ML BAG IVPB PRN (16:38)
[2018-12-18] MEDS: Ondansetron 4 MG/2 ML VIAL IVP PRN (16:59)
--- NOTE | 2018-12-18 19:08 | Pulmonology Progress Note ---
Date of Encounter: 12/18/18 Time of Encounter: 13:00 Assessment and Plan (1) Hypotension Current Visit: Yes Status: Acute Most likely this hypertension due to hypovolemia with poor by mouth intake and diuresis patient blood pressure responded well to IV fluids. Patient lactate was normal. Sent blood cultures broaden the coverage of antibiotics patient developed shock the background of white count most likely at that point a septic shock. But for now and looks like hypovolemia. Qualifiers: Hypotension type: hypotension due to hypovolemia Qualified Code(s): I95.89 - Other hypotension; E86.1 - Hypovolemia (2) Acute respiratory failure Current Visit: No Status: Acute Patient seen with current oxygen supplementation contributed by bibasilar atelectasis contributing to the VQ mismatch. To continue COPD management will hold off diuresis patient has background of congestive heart failure looks like with volume depletion and with diuresis might be causing this hypotension Qualifiers: Respiratory failure complication: hypoxia Qualified Code(s): J96.01 - Acute respiratory failure with hypoxia (3) Mucus plugging of bronchi Current Visit: Yes Status: Acute Patient V/Q mismatch is stable patient had a bronchoscopy with the probable pulmonary toileting culture is not growing anything so far (4) COPD (chronic obstructive pulmonary disease) Current Visit: Yes Status: Acute To continue bronchodilators and inhaled corticosteroids/long-acting beta-2 agonist Qualifiers: COPD type: chronic bronchitis Qualified Code(s): J41.0 - Simple chronic bronchitis (5) HAP (hospital-acquired pneumonia) Current Visit: Yes Status: Acute Patient had a bronchoscopy with BAL nothing growing in cultures so far Subjective Principal diagnosis: Mucus plugging of bronchi with pneumonia Interval history: Patient had previous bowel surgery with some hernia repair with mesh got an infected mesh followed by days since had repeat surgery 1 day ago now patient was transferred to ICU because of new onset hypertension. Patient in the previous week had a bronchoscopy for right lower lobe consolidation with BAL did not grow any organisms. Patient denies any fever or chills patient has some abdominal discomfort patient denies any headache patient denies any much cough or sputum production patient developed acute onset of hypotension and the floor was transferred to the ICU for possible pressor support. Objective PUL Vital signs: Last Vital Signs Temp 97.6 F 12/18/18 13:15 Pulse 115 12/18/18 18:00 Resp 20 12/18/18 18:00 BP 122/80 12/18/18 18:00 Pulse Ox 93 12/18/18 18:00 General appearance: appears uncomfortable Eyes: nonicteric Neck: supple Auscultation: bilateral: diminished breath sounds (Basilar diminished breath sounds) Cardiovascular: regular rate and rhythm Gastrointestinal: other (Patient has an abdominal binder with the wound was examined by the nurses during dressing change no evidence of bleeding patient wound was examined by surgical colleagues today) Extremities: no cyanosis, no edema Musculoskeletal: no deformities normal mental status, non-focal exam Results - Laboratory Findings CBC and BMP: 12/18/18 13:44 12/18/18 13:44 ABG ABG pH 7.43 pH Units (7.32-7.45) 12/18/18 12:40 ABG pCO2 33 mmHg (35-45) L 12/18/18 12:40 ABG pO2 80 mmHg (85-104) L 12/18/18 12:40 ABG O2 Saturation 96 % (95-98) 12/18/18 12:40 PT/INR, D-dimer PT 25.1 Seconds (9.4-12.1) H 12/18/18 11:49 Abnormal lab findings: Abnormal lab results WBC 23.5 K/mcL (4.3-11.1) H 12/18/18 13:44 RBC 3.48 M/mcL (4.19-5.50) L 12/18/18 13:44 Hgb 10.7 g/dL (12.9-16.9) L 12/18/18 13:44 Hct 33.2 % (37.5-50.1) L 12/18/18 13:44 Plt Count 519 K/mcL (140-400) H 12/18/18 13:44 Neutrophils # 20.2 K/mcL (1.6-8.9) H 12/18/18 13:44 Lymphocytes # 0.5 K/mcL (0.6-4.6) L 12/17/18 06:25 Monocytes # 2.1 K/mcL (0.0-1.3) H 12/18/18 04:35 Platelet Estimate Increased (Normal) H 12/18/18 13:44 Hypochromasia Present (Not Present) A 12/14/18 04:00 PT 25.1 Seconds (9.4-12.1) H 12/18/18 11:49 ABG pCO2 33 mmHg (35-45) L 12/18/18 12:40 ABG pO2 80 mmHg (85-104) L 12/18/18 12:40 Sodium 131 mEq/L (136-145) L D 12/18/18 13:44 Potassium 2.6 mEq/L (3.5-5.1) L D 12/18/18 11:49 Chloride 97 mEq/L (98-107) L 12/18/18 13:44 Carbon Dioxide 16 mEq/L (23-29) L 12/18/18 11:49 BUN 24 mg/dL (8-23) H 12/18/18 13:44 Est GFR (Non-Af Amer) 58 (> 60) L 12/18/18 13:44 Glucose 114 mg/dL (70-105) H 12/18/18 13:44 POC Glucose 104 mg/dL (70-99) H 12/16/18 17:08 Calculated Osmolality 277 (280-300) L 12/18/18 13:44 Calcium 8.2 mg/dL (8.6-10.3) L 12/18/18 13:44 Venous Ioniz Calcium 1.14 mmol/L (1.15-1.35) L 12/18/18 14:37 Phosphorus 2.4 mg/dL (2.7-4.5) L 12/13/18 03:25 Procalcitonin 0.64 ng/mL (0.00-0.15) H 12/18/18 13:44 Urine Protein 100 mg/dL (Neg-Trace) H 12/13/18 06:58 Urine Blood Moderate (Negative) H 12/13/18 06:58 Ur Leukocyte Esterase Moderate (Negative) H 12/13/18 06:58 Urine Microscopic RBC 50-100 per hpf (0-3) H 12/13/18 06:58 Urine Microscopic WBC 5-15 per hpf (0-3) H 12/13/18 06:58 Ur Culture Indicated? YES (NO) A 12/13/18 06:58 Fluid Appearance Hazy (Clear) A 12/14/18 Unknown - Microbiology Findings Microbiology Findings: Microbiology, Last 48 Hours 12/13/18 11:39 Blood Culture - Final Peripheral Venipuncture No growth. Final report. 12/13/18 11:44 Blood Culture - Final Peripheral Venipuncture No growth. Final report. 12/18/18 12:05 Blood Culture - Preliminary Peripheral Venipuncture Culture is incubating and being continuously monitored for growth. Final report to follow. 12/18/18 12:00 Blood Culture - Preliminary Peripheral Venipuncture Culture is incubating and being continuously monitored for growth. Final report to follow. 12/14/18 Unknown Respiratory Culture - Final Right Middle Lobe Lung - Clinical Findings Intake & Output: Intake & Output 12/18/18 12/18/18 12/18/18 07:59 15:59 23:59 Intake Total 200 / 1650 1450 / 1650 Output Total 250 / 310 60 / 310 Balance -50 / 1340 1390 / 1340 Weight 65.2 kg 66.3 kg Consult Discharge Plan - Plan Referrals: Dane Justin MD [Primary Care Provider] - Carlita Mccabe CNP [Advanced Practice Nurse] - 12/26/18 10:15 am Critical Care Time Critical Care Time: Yes Total Critical Care Time: 33 Attestation: I spent 33 minutes of Critical Care time with this patient. It involved decision making of high complexity to assess, manipulate, and support vital organ system failure and/or to prevent further life threatening deterioration of the patient's condition. The time involved in the performance of separately reportable procedures was not counted toward critical care time.
[2018-12-18] MEDS: *HR* LORazepam 2 MG/ML VIAL IVP SCH (20:14)
[2018-12-18] MEDS: MetroNIDAZOLE 500 MG/100 ML 500 MG/100 ML BAG IVPB SCH (20:14)
[2018-12-18] MEDS: Cefepime HCl 2,000 MG in 0.9 % Sodium Chloride Mini Bag 100 ML IVPB SCH (20:14)
[2018-12-19] MEDS ORDERED: *HR* Etomidate 20 MG/10 ML AMPUL IVP ONE (02:46)
[2018-12-19] MEDS ORDERED: Aminoglycoside Consult 1 EACH MC ONE (02:46)
[2018-12-19] MEDS: MetroNIDAZOLE 500 MG/100 ML 500 MG/100 ML BAG IVPB SCH ×3 (03:11→19:31)
[2018-12-19] MEDS: Cefepime HCl 2,000 MG in 0.9 % Sodium Chloride Mini Bag 100 ML IVPB SCH ×3 (03:11→19:30)
[2018-12-19 03:49] LABS: Hematocrit 28.6 % (37.5-50.1); Mean Corpuscular HGB Conc 31.5 g/dL (31.6-35.5); Mean Corpuscular Hemoglobin 30.6 pg (28.0-33.3); Mean Corpuscular Volume 97.3 fL (83.0-100.0); Mean Platelet Volume 9.6 fL (9.4-12.4); Platelet Count 427 K/mcL (140-400); Red Blood Count 2.94 M/mcL (4.19-5.50); Red Cell Distribution Width 13.3 % (11.5-14.5); White Blood Count 23.9 K/mcL (4.3-11.1)
[2018-12-19 04:03] LABS: VBG Ionized Calcium 1.06 mmol/L (1.15-1.35)
[2018-12-19] MEDS: Ipratropium/Albuterol Neb 3 ML IH SCH ×6 (04:06→23:43)
[2018-12-19 04:07] LABS: Calcium 6.6 mg/dL (8.6-10.3); Magnesium 1.9 mg/dL (1.6-2.6); Phosphorous 5.2 mg/dL (2.7-4.5)
[2018-12-19 04:48] LABS: Large Platelets Present (Not Present); Lymphocytes # 1.4 K/mcL (0.6-4.6); Monocytes # 1.4 K/mcL (0.0-1.3); Neutrophils # 19.6 K/mcL (1.6-8.9); Platelet Estimate Normal (Normal)
[2018-12-19 04:49] LABS: Reactive Lymphocytes Present (Not Present)
[2018-12-19 04:52] LABS: Burr Cells 1+ (Not Present)
[2018-12-19 04:53] LABS: Anisocytosis 1+ (Not Present)
[2018-12-19] MEDS: Acetaminophen IV 1,000 MG/100 ML INFUS..BTL IVPB SCH ×3 (06:14→17:44)
[2018-12-19] MEDS: Budesonide/Formoterol 160/4.5 1 PUFF INH IH SCH ×2 (07:12→19:33)
[2018-12-19 08:01] LABS: ABG Base Excess -7 mEq/L (-2 to 3); ABG HCO3 17 mEq/L (21-27); ABG Oxygen Saturation 95 % (95-98); ABG PCO2 27 mmHg (35-45); ABG PO2 72 mmHg (85-104); ABG TCO2 18 mEq/L (20-26)
[2018-12-19] MEDS ORDERED: Ringers Solution, Lactated 1,000 ML IVC ONE ×2 (08:14→10:54)
[2018-12-19] MEDS ORDERED: Fluconazole 400 MG/200 ML 400 MG/200 ML BAG IVPB SCH (09:00)
[2018-12-19] MEDS ORDERED: Potassium Chloride Elixir 20 MEQ/15 ML UDC PO SCH (09:00)
[2018-12-19] MEDS: *HR* LORazepam 2 MG/ML VIAL IVP SCH (09:03)
--- NOTE | 2018-12-19 09:21 | Pulmonology Progress Note ---
<Demi Sanders - Last Filed: 12/19/18 15:40> Date of Encounter: 12/19/18 Time of Encounter: 09:21 Assessment and Plan (1) Hypotension Current Visit: Yes Status: Acute * Likely secondary to hypovolemia * Patient does have response to fluids, will give 2 L of LR given the patient's hyperchloremia, blood pressure remains borderline * Continuing to cover for possible septic shock with Maxipime, vancomycin, fluconazole and Flagyl * We will obtain a CT abdomen/pelvis as well as chest to evaluate for possible sources of infection including intra-abdominal abscess versus worsening pneumonia * Repeat lactate 1.9 * Patient does continue to have leukocytosis which jumped yesterday from 10 up to 23.5, today 23.9 * Procalcitonin of 0.64 * Qualifiers: Hypotension type: hypotension due to hypovolemia Qualified Code(s): I95.89 - Other hypotension; E86.1 - Hypovolemia (2) Electrolyte imbalance Current Visit: Yes Status: Acute * Patient has hyponatremia and hyperchloremia, ABG shows respiratory compensation for this * Will avoid normal saline given hyperchloremia * We will continue to monitor (3) HAP (hospital-acquired pneumonia) Current Visit: Yes Status: Acute * Blood and proctoscopy cultures negative thus far * CT chest today shows persistent small bilateral pleural effusions with partial interval clearing of the right lower lobe airspace consolidation as well as chronic emphysema * Continues on Maxipime, vancomycin, fluconazole and Flagyl (4) Mucus plugging of bronchi Current Visit: Yes Status: Acute * No growth from BAL * CT chest today (5) COPD (chronic obstructive pulmonary disease) Current Visit: Yes Status: Acute * Continue on scheduled bronchodilators as well as inhaled corticosteroids Qualifiers: COPD type: chronic bronchitis Qualified Code(s): J41.0 - Simple chronic bronchitis (6) Dehiscence of fascia Current Visit: Yes Status: Acute * Surgery following, appreciate their recommendations * We will continue with antibiotics * The plan to start TPN today, will monitor output. * CT abdomen/pelvis without IV contrast given acute kidney injury shows no evidence of obvious focal water off abscess, there is inflammatory changes of the entire colon Qualifiers: Encounter type: subsequent encounter Qualified Code(s): T81.30XD - Disruption of wound, unspecified, subsequent encounter (7) DVT prophylaxis Current Visit: Yes Status: Acute * Will initiate on subcutaneous heparin today Subjective Principal diagnosis: Mucus plugging of bronchi with pneumonia Interval history: The patient is awake and alert, continues to complain of abdominal pain which is improving. Objective PUL Vital signs: Last Vital Signs Temp 97.7 F 12/19/18 07:15 Pulse 102 12/19/18 09:00 Resp 34 12/19/18 09:00 BP 77/55 12/19/18 09:00 Pulse Ox 91 12/19/18 09:00 General appearance: no acute distress Eyes: nonicteric ENT: oropharynx dry Effort: mildly labored Auscultation: bilateral: diminished breath sounds Cardiovascular: regular rate and rhythm Gastrointestinal: normoactive bowel sounds, tender (diffuse, healing idline incision is dressed and dry, no surrounding erythema or warmth) Integumentary: normal Extremities: no cyanosis Musculoskeletal: no deformities normal mental status, non-focal exam mood appropriate, affect normal Results - Laboratory Findings CBC and BMP: 12/19/18 03:30 12/19/18 03:30 ABG ABG pH 7.40 pH Units (7.32-7.45) 12/19/18 07:57 ABG pCO2 27 mmHg (35-45) L 12/19/18 07:57 ABG pO2 72 mmHg (85-104) L 12/19/18 07:57 ABG O2 Saturation 95 % (95-98) 12/19/18 07:57 PT/INR, D-dimer PT 25.1 Seconds (9.4-12.1) H 12/18/18 11:49 Abnormal lab findings: Abnormal lab results WBC 23.9 K/mcL (4.3-11.1) H 12/19/18 03:30 RBC 2.94 M/mcL (4.19-5.50) L 12/19/18 03:30 Hgb 9.0 g/dL (12.9-16.9) L D 12/19/18 03:30 Hct 28.6 % (37.5-50.1) L 12/19/18 03:30 MCHC 31.5 g/dL (31.6-35.5) L 12/19/18 03:30 Plt Count 427 K/mcL (140-400) H 12/19/18 03:30 Band Neutrophils % 22.0 % (0-4) H 12/19/18 03:30 Metamyelocytes % 6.0 % (0) H 12/19/18 03:30 Neutrophils # 19.6 K/mcL (1.6-8.9) H 12/19/18 03:30 Lymphocytes # 0.5 K/mcL (0.6-4.6) L 12/17/18 06:25 Monocytes # 1.4 K/mcL (0.0-1.3) H 12/19/18 03:30 Reactive Lymphocytes Present (Not Present) A 12/19/18 03:30 Platelet Estimate Increased (Normal) H 12/18/18 13:44 Large Platelets Present (Not Present) A 12/19/18 03:30 Hypochromasia Present (Not Present) A 12/14/18 04:00 Anisocytosis 1+ (Not Present) A 12/19/18 03:30 [place]tor[place] Cells 1+ (Not Present) A 12/19/18 03:30 PT 25.1 Seconds (9.4-12.1) H 12/18/18 11:49 ABG pCO2 27 mmHg (35-45) L 12/19/18 07:57 ABG pO2 72 mmHg (85-104) L 12/19/18 07:57 ABG HCO3 17 mEq/L (21-27) L 12/19/18 07:57 ABG Total CO2 18 mEq/L (20-26) L 12/19/18 07:57 ABG Base Excess -7 mEq/L (-2 to 3) L 12/19/18 07:57 Sodium 130 mEq/L (136-145) L 12/19/18 03:30 Potassium 2.6 mEq/L (3.5-5.1) L D 12/18/18 11:49 Chloride 114 mEq/L (98-107) H 12/19/18 03:30 Carbon Dioxide 15 mEq/L (23-29) L 12/19/18 03:30 BUN 39 mg/dL (8-23) H 12/19/18 03:30 Creatinine 1.78 mg/dL (0.70-1.30) H 12/19/18 03:30 Est GFR ( Amer) 45 (> 60) L 12/19/18 03:30 Est GFR (Non-Af Amer) 37 (> 60) L 12/19/18 03:30 Glucose 114 mg/dL (70-105) H 12/18/18 13:44 POC Glucose 105 mg/dL (70-99) H 12/18/18 13:31 Calculated Osmolality 279 (280-300) L 12/19/18 03:30 Calcium 6.6 mg/dL (8.6-10.3) L 12/19/18 03:30 Venous Ioniz Calcium 1.06 mmol/L (1.15-1.35) L 12/19/18 03:58 Phosphorus 5.2 mg/dL (2.7-4.5) H 12/19/18 03:30 Procalcitonin 0.64 ng/mL (0.00-0.15) H 12/18/18 13:44 Urine Protein 100 mg/dL (Neg-Trace) H 12/13/18 06:58 Urine Blood Moderate (Negative) H 12/13/18 06:58 Ur Leukocyte Esterase Moderate (Negative) H 12/13/18 06:58 Urine Microscopic RBC 50-100 per hpf (0-3) H 12/13/18 06:58 Urine Microscopic WBC 5-15 per hpf (0-3) H 12/13/18 06:58 Ur Culture Indicated? YES (NO) A 12/13/18 06:58 Fluid Appearance Hazy (Clear) A 12/14/18 Unknown - Microbiology Findings Microbiology Findings: Microbiology, Last 48 Hours 12/13/18 11:39 Blood Culture - Final Peripheral Venipuncture No growth. Final report. 12/13/18 11:44 Blood Culture - Final Peripheral Venipuncture No growth. Final report. 12/18/18 12:05 Blood Culture - Preliminary Peripheral Venipuncture Culture is incubating and being continuously monitored for growth. Final report to follow. 12/18/18 12:00 Blood Culture - Preliminary Peripheral Venipuncture Culture is incubating and being continuously monitored for growth. Final report to follow. 12/14/18 Unknown Respiratory Culture - Final Right Middle Lobe Lung - Clinical Findings Intake & Output: Intake & Output 12/18/18 12/19/18 12/19/18 23:59 07:59 15:59 Intake Total 640 / 2290 300 / 300 Output Total 560 / 870 135 / 135 Balance 80 / 1420 165 / 165 Weight 65.1 kg Consult Discharge Plan - Plan Referrals: Justin,Dane N, MD [Primary Care Provider] - Carlita Mccabe CNP [Advanced Practice Nurse] - 12/26/18 10:15 am <Eliana Call - Last Filed: 12/19/18 17:04> Date of Encounter: 12/19/18 Assessment and Plan (1) Hypotension Current Visit: Yes Status: Acute Qualifiers: Hypotension type: hypotension due to hypovolemia Qualified Code(s): I95.89 - Other hypotension; E86.1 - Hypovolemia (2) Acute respiratory failure Current Visit: No Status: Acute Qualifiers: Respiratory failure complication: hypoxia Qualified Code(s): J96.01 - Acute respiratory failure with hypoxia (3) Mucus plugging of bronchi Current Visit: Yes Status: Acute (4) COPD (chronic obstructive pulmonary disease) Current Visit: Yes Status: Acute Qualifiers: COPD type: chronic bronchitis Qualified Code(s): J41.0 - Simple chronic bronchitis (5) HAP (hospital-acquired pneumonia) Current Visit: Yes Status: Acute Objective PUL Vital signs: Last Vital Signs Temp 97.7 F 12/19/18 07:15 Pulse 118 12/19/18 16:00 Resp 28 12/19/18 16:00 BP 88/65 12/19/18 16:00 Pulse Ox 98 12/19/18 16:00 Results - Laboratory Findings CBC and BMP: 12/19/18 03:30 12/19/18 03:30 ABG ABG pH 7.40 pH Units (7.32-7.45) 12/19/18 07:57 ABG pCO2 27 mmHg (35-45) L 12/19/18 07:57 ABG pO2 72 mmHg (85-104) L 12/19/18 07:57 ABG O2 Saturation 95 % (95-98) 12/19/18 07:57 PT/INR, D-dimer PT 25.1 Seconds (9.4-12.1) H 12/18/18 11:49 Abnormal lab findings: Abnormal lab results WBC 23.9 K/mcL (4.3-11.1) H 12/19/18 03:30 RBC 2.94 M/mcL (4.19-5.50) L 12/19/18 03:30 Hgb 9.0 g/dL (12.9-16.9) L D 12/19/18 03:30 Hct 28.6 % (37.5-50.1) L 12/19/18 03:30 MCHC 31.5 g/dL (31.6-35.5) L 12/19/18 03:30 Plt Count 427 K/mcL (140-400) H 12/19/18 03:30 Band Neutrophils % 22.0 % (0-4) H 12/19/18 03:30 Metamyelocytes % 6.0 % (0) H 12/19/18 03:30 Neutrophils # 19.6 K/mcL (1.6-8.9) H 12/19/18 03:30 Lymphocytes # 0.5 K/mcL (0.6-4.6) L 12/17/18 06:25 Monocytes # 1.4 K/mcL (0.0-1.3) H 12/19/18 03:30 Reactive Lymphocytes Present (Not Present) A 12/19/18 03:30 Platelet Estimate Increased (Normal) H 12/18/18 13:44 Large Platelets Present (Not Present) A 12/19/18 03:30 Hypochromasia Present (Not Present) A 12/14/18 04:00 Anisocytosis 1+ (Not Present) A 12/19/18 03:30 [place] Cells 1+ (Not Present) A 12/19/18 03:30 PT 25.1 Seconds (9.4-12.1) H 12/18/18 11:49 ABG pCO2 27 mmHg (35-45) L 12/19/18 07:57 ABG pO2 72 mmHg (85-104) L 12/19/18 07:57 ABG HCO3 17 mEq/L (21-27) L 12/19/18 07:57 ABG Total CO2 18 mEq/L (20-26) L 12/19/18 07:57 ABG Base Excess -7 mEq/L (-2 to 3) L 12/19/18 07:57 Sodium 130 mEq/L (136-145) L 12/19/18 03:30 Potassium 2.6 mEq/L (3.5-5.1) L D 12/18/18 11:49 Chloride 114 mEq/L (98-107) H 12/19/18 03:30 Carbon Dioxide 15 mEq/L (23-29) L 12/19/18 03:30 BUN 39 mg/dL (8-23) H 12/19/18 03:30 Creatinine 1.78 mg/dL (0.70-1.30) H 12/19/18 03:30 Est GFR ( Amer) 45 (> 60) L 12/19/18 03:30 Est GFR (Non-Af Amer) 37 (> 60) L 12/19/18 03:30 Glucose 114 mg/dL (70-105) H 12/18/18 13:44 POC Glucose 105 mg/dL (70-99) H 12/18/18 13:31 Calculated Osmolality 279 (280-300) L 12/19/18 03:30 Calcium 6.6 mg/dL (8.6-10.3) L 12/19/18 03:30 Venous Ioniz Calcium 1.06 mmol/L (1.15-1.35) L 12/19/18 03:58 Phosphorus 5.2 mg/dL (2.7-4.5) H 12/19/18 03:30 Procalcitonin 0.64 ng/mL (0.00-0.15) H 12/18/18 13:44 Urine Protein 100 mg/dL (Neg-Trace) H 12/13/18 06:58 Urine Blood Moderate (Negative) H 12/13/18 06:58 Ur Leukocyte Esterase Moderate (Negative) H 12/13/18 06:58 Urine Microscopic RBC 50-100 per hpf (0-3) H 12/13/18 06:58 Urine Microscopic WBC 5-15 per hpf (0-3) H 12/13/18 06:58 Ur Culture Indicated? YES (NO) A 12/13/18 06:58 Fluid Appearance Hazy (Clear) A 12/14/18 Unknown - Microbiology Findings Microbiology Findings: Microbiology, Last 48 Hours 12/13/18 11:39 Blood Culture - Final Peripheral Venipuncture No growth. Final report. 12/13/18 11:44 Blood Culture - Final Peripheral Venipuncture No growth. Final report. 12/18/18 12:05 Blood Culture - Preliminary Peripheral Venipuncture Culture is incubating and being continuously monitored for growth. Final report to follow. 12/18/18 12:00 Blood Culture - Preliminary Peripheral Venipuncture Culture is incubating and being continuously monitored for growth. Final report to follow. - Clinical Findings Intake & Output: Intake & Output 12/19/18 12/19/18 12/19/18 07:59 15:59 23:59 Intake Total 350 / 3204 2854 / 3204 Output Total 135 / 475 340 / 475 Balance 215 / 2729 2854 / 2729 -340 / 2729 - Attending Attestation I saw and evaluated this patient and my medical decision-making was reviewed with the Resident Physician. I agree with the documented findings, disposition and treatment plan as described except to the extent set forth below. We independently had [id number] contact with the patient I spent 50 minutes of Critical Care time with this patient. It involved decision making of high complexity to assess, manipulate, and support vital organ system failure and/or to prevent further life threatening deterioration of the patient's condition. The time involved in the performance of separately reportable procedures was not counted toward critical care time. Patient seen and examined at bedside Labs, radiology, chart personally reviewed. Management was reviewed during multidisciplinary critical care rounds. SANITATION ENGINEER: Patient is conscious oriented following commands has this discomfort due to abdominal pain Pulm: Patient has acceptable oxygenation and ventilation to continue oxygen supplementation patient has this right lower lobe pneumonia which he had BAL no cultures grew any bacteria to continue the broad-spectrum antibiotics. Cards: Patient might be developing septic shock will treat for C. difficile colitis will treat for pneumonia to continue the broad-spectrum antibiotics will start on norepinephrine drip if needed FEN-GI: To keep her nothing by mouth. Patient has complicated surgery stable infected mesh followed by dehiscence. Renal: Labs and output were reviewed ID: To cover with broad-spectrum antibiotics now with diarrhea cards for C. difficile colitis a CT abdomen did not show any evidence of abscess but has some colitis picture patient lactic acid is normal. Patient had complicated surgery history Heme/Onc: Labs reviewed Endo: Glucose Monitored Integ/MSK: Skin Care per routine ICU Nursing Protocol to prevent ulcers. Lines: All lines examined without evidence of infection : Dispo: Critically ill CODE: Full Code
[2018-12-19] MEDS ORDERED: *HR* LORazepam 1 MG TABLET PO PRN (11:31)
[2018-12-19] MEDS ORDERED: D10% in Water 500 ML IVC PRN (12:53)
[2018-12-19] MEDS: *HR* Heparin 5,000 UNIT/ML VIAL SQ SCH ×2 (14:19→23:15)
[2018-12-19] MEDS ORDERED: Clinimix 5%-20% SOLUTION 2,000 ML with MVI, adult with vitamin K 10 ML, Sodium Acetat... IVC SCH (17:00)
[2018-12-19] MEDS: Ondansetron 4 MG/2 ML VIAL IVP PRN (17:44)
[2018-12-19] MEDS: Vancomycin Oral Soln 125 MG/2.5 ML UDC PO SCH ×2 (17:44→23:14)
[2018-12-19 18:41] LABS: Calcium 7.7 mg/dL (8.6-10.3); Potassium 5.2 mEq/L (3.5-5.1)
[2018-12-19] MEDS ORDERED: Sodium Bicarbonate 150 MEQ in D5% in Water 1,000 ML IVC SCH (19:15)
[2018-12-19] MEDS: Norepinephrine 4 MG in D5% in Water 250 ML IVC SCH ×2 (19:38→20:50)
--- NOTE | 2018-12-19 20:03 | AcuteCareSurgery Progress Note ---
Date of Encounter: 12/19/18 Time of Encounter: 08:00 - Assessment and Plan (1) Infected prosthetic mesh of abdominal wall Current Visit: Yes Status: Acute POD#3 repair fascial dehiscence. POD#9 removal and infected mesh and SBR. +Leukocytosis of 23.9. Continue IV abx. Check for C. dif. Qualifiers: Encounter type: subsequent encounter Qualified Code(s): T85.79XD - Infection and inflammatory reaction due to other internal prosthetic devices, implants and grafts, subsequent encounter (2) Pneumonia Current Visit: No Status: Acute S/P bronch. Pt feels much better. Strategic Planner managing pneumonia tx. Qualifiers: Pneumonia type: due to unspecified organism Laterality: unspecified laterality Lung location: unspecified part of lung Qualified Code(s): J18.9 - Pneumonia, unspecified organism (3) Dehiscence of fascia Current Visit: Yes Status: Acute POD#3 repair fascial dehiscence. POD#9 removal and infected mesh and SBR. +Leukocytosis of 23.9. Continue IV abx. Check for C. dif. Qualifiers: Encounter type: subsequent encounter Qualified Code(s): T81.30XD - Disruption of wound, unspecified, subsequent encounter Subjective Patient reports: still having pain, diarrhea, shortness of breath Narrative: POD#3 repair of fascial dehiscence. Pt was moved to ICU yesterday for increasing SOB, low BP and increased HR. Pt still c/o SOB. Abdominal pain is controlled with pain meds. Diarrhea is new. Objective Vital Signs - Last 8 Hours Temp Pulse Resp BP Pulse Ox 12/19/18 19:39 98.3 F 12/19/18 19:34 23 97 12/19/18 19:00 120 28 110/56 100 12/19/18 18:00 117 34 104/71 93 12/19/18 17:00 120 30 111/59 97 12/19/18 16:00 118 28 88/65 98 12/19/18 15:22 18 100 12/19/18 15:00 109 22 77/50 100 12/19/18 14:00 104 27 91/54 100 12/19/18 13:00 107 25 86/50 100 Intake and Output 12/19/18 12/19/18 12/19/18 07:59 15:59 23:59 Intake Total 350 / 3304 2854 / 3304 100 / 3304 Output Total 135 / 745 610 / 745 Balance 215 / 2559 2854 / 2559 -510 / 2559 Intake: IV Fluids 350 / 3304 2854 / 3304 100 / 3304 Lactated Ringers 1,000 ML @ 500 2000 / 2000 mls/hr IVC .Q2H ONE Rx#: [id number] Ofirmev 1,000 mg/100 ml 1,000 100 / 300 100 / 300 100 / 300 mg In 100 ml @ 400 mls/hr IVPB Q6HR COUNT INCLUDES THE [facility] Rx#:[id number] Calcium Gluconate 1gm/50mL 1 gm 50 / 50 In 50 ml @ 50 mls/hr IVPB Q6HR PRN Rx#:[id number] Maxipime 2,000 MG In 0.9 % 100 / 200 100 / 200 Sodium Chloride (Mini-Bag +) 100 ML @ 200 mls/hr IVPB Q8H COUNT INCLUDES THE [facility] Rx#:[id number] Diflucan Premix 400 MG/200 ML 200 / 200 400 mg In 200 ml @ 200 mls/hr IVPB DAILY COUNT INCLUDES THE [facility] Rx#:[id number] Magnesium Sulfate 2 GM In 0.9 % 104 / 104 Sodium Chloride 100 ML @ 52 mls/hr IVPB Q6H PRN Rx#: [id number] Flagyl Premix 500 MG/100 ML 500 100 / 200 100 / 200 mg In 100 ml @ 100 mls/hr IVPB Q8H COUNT INCLUDES THE [facility] Rx#:[id number] Vancocin 1,000 MG In 0.9 % 250 / 250 Sodium Chloride 250 ML @ 167 mls/hr IVPB Q24H COUNT INCLUDES THE [facility] Rx#: [id number] Oral 0 / 0 Output: Stool 200 / 200 Rectal Tube 200 / 200 Catheter 75 / 225 150 / 225 Wound Drainage 60 / 120 60 / 120 Right Upper Abdomen 60 / 120 60 / 120 Other: Stool Size Large Stool Consistency liquid Stool Color Brown Brown # Bowel Movements 1 Blood Glucose* 158 - General physical appearance no distress, moderate pain - Eyes PERRL, normal ocular movement - ENT no congestion, dry mucosa - Neck Neck exam: trachea midline, no venous distension - Respiratory normal respiratory effort, clear to auscultation - Cardiovascular Cardiovascular exam: Present: RRR - Abdomen Abdomen: Present: bowel sounds present, distended, tender Additional Comments: rectal tube now in place - Incision Incision: Present: clean and dry, intact - Genitourinary other (williamson in place) - Neurologic CN 2-12 grossly intact, normal coordination - Musculoskeletal normal posture - Psychiatric oriented to time, oriented to person, oriented to place - Labs 12/19/18 03:30 12/19/18 17:41 Diabetes panel 12/19/18 12/19/18 Range/Units 03:30 17:41 Sodium 130 L 130 L (136-145) mEq/L Potassium 4.0 5.2 H D (3.5-5.1) mEq/L Chloride 114 H 102 (98-107) mEq/L Carbon Dioxide 15 L 17 L (23-29) mEq/L BUN 39 H 54 H (8-23) mg/dL Creatinine 1.78 H 2.46 H (0.70-1.30) mg/dL Glucose 92 116 H (70-105) mg/dL Calcium 6.6 L 7.7 L (8.6-10.3) mg/dL Calcium panel 12/19/18 12/19/18 Range/Units 03:30 17:41 Calcium 6.6 L 7.7 L (8.6-10.3) mg/dL Phosphorus 5.2 H (2.7-4.5) mg/dL Pituitary panel 12/19/18 12/19/18 Range/Units 03:30 17:41 Sodium 130 L 130 L (136-145) mEq/L Potassium 4.0 5.2 H D (3.5-5.1) mEq/L Chloride 114 H 102 (98-107) mEq/L Carbon Dioxide 15 L 17 L (23-29) mEq/L BUN 39 H 54 H (8-23) mg/dL Creatinine 1.78 H 2.46 H (0.70-1.30) mg/dL Glucose 92 116 H (70-105) mg/dL Calcium 6.6 L 7.7 L (8.6-10.3) mg/dL Adrenal panel 12/19/18 12/19/18 Range/Units 03:30 17:41 Sodium 130 L 130 L (136-145) mEq/L Potassium 4.0 5.2 H D (3.5-5.1) mEq/L Chloride 114 H 102 (98-107) mEq/L Carbon Dioxide 15 L 17 L (23-29) mEq/L BUN 39 H 54 H (8-23) mg/dL Creatinine 1.78 H 2.46 H (0.70-1.30) mg/dL Glucose 92 116 H (70-105) mg/dL Calcium 6.6 L 7.7 L (8.6-10.3) mg/dL Consult Discharge Plan - Plan Referrals: Nhan,Dane Guzmán MD [Primary Care Provider] - Carlita Mccabe CNP [Advanced Practice Nurse] - 12/26/18 10:15 am
[2018-12-19] MEDS ORDERED: Sodium Bicarbonate 50 MEQ/50 ML VIAL ONE (20:25)
[2018-12-19] MEDS ORDERED: Artificial Tears SOLN 15 ML BOTTLE BOTH EYES PRN (20:47)
--- NOTE | 2018-12-19 20:53 | Procedure Note ---
Date of procedure: 12/19/18 Pre-op diagnosis: Respiratory distress Post-op diagnosis: same Procedure: Procedure: Endotracheal intubation Date: 12/19/18 Time: 2044 Technology Engineer: Benjamin Attending: Paul Indication: Respiratory distress The patient was placed in supine position. All equipment was checked and operational before beginning the procedure. Sedation was obtained using etomidate 20mg. The patient was easily ventilated using an Ambu bag. There are laryngoscope using a C-blade was inserted into the oropharynx at which time a grade 1 view of the vocal cords was visualized. A 7.5 [place] endotracheal tube was inserted and visualized going through the cords. The stylet was removed. Colorimetric change was visualized on the CO2 meter. Breath sounds were heard in both lung bishop. There were no breast breath sounds auscultated over the stomach. The endotracheal tube was placed at 21 cm at the lip line. Attending physician was in attendance throughout the entirety of the procedures. A chest x-ray was ordered afterwards to assess for pneumothorax and placement of the endotracheal tube. The patient tolerated the procedure well without desaturation or hemodynamic compromise. Anesthesia: IV sedation Surgeon: Jace Alexander Was there an insurance account assistant present: No Estimated blood loss (cc): 0 Specimen: none Pathology: none sent Condition: critical Disposition: ICU
[2018-12-19] MEDS ORDERED: Chlorhexidine Rinse 15 ML MOUTHWASH MM SCH (21:00)
[2018-12-19] MEDS ORDERED: Dexmedetomidine HCl 400 MCG/100 ML MLS IVC SCH (21:00)
[2018-12-19] MEDS ORDERED: FentaNYL (PF) 1,000 MCG in 0.9 % Sodium Chloride 80 ML IVC SCH (21:00)
[2018-12-19 22:08] LABS: ABG Base Excess -12 mEq/L (-2 to 3); ABG HCO3 15 mEq/L (21-27); ABG Oxygen Saturation 90 % (95-98); ABG PCO2 37 mmHg (35-45); ABG PH 7.21 pH Units (7.32-7.45); ABG PO2 71 mmHg (85-104); ABG TCO2 16 mEq/L (20-26); Blood Gas PEEP 5 cm H2O; Blood Gas VT 500 cc
[2018-12-19 23:18] LABS: Red Cell Distribution Width 13.7 % (11.5-14.5)
[2018-12-19 23:19] LABS: Hematocrit 30.3 % (37.5-50.1); Hemoglobin 9.8 g/dL (12.9-16.9); Mean Corpuscular HGB Conc 32.3 g/dL (31.6-35.5); Mean Corpuscular Hemoglobin 32.1 pg (28.0-33.3); Mean Corpuscular Volume 99.3 fL (83.0-100.0); Mean Platelet Volume 10.3 fL (9.4-12.4); Platelet Count 387 K/mcL (140-400); Red Blood Count 3.05 M/mcL (4.19-5.50)
[2018-12-19 23:24] LABS: VBG Ionized Calcium 1.08 mmol/L (1.15-1.35)
[2018-12-19 23:25] LABS: White Blood Count 49.8 K/mcL (4.3-11.1)
[2018-12-19 23:51] LABS: Neutrophils # 44.8 K/mcL (1.6-8.9); Platelet Estimate Normal (Normal)
[2018-12-20] MEDS: Acetaminophen IV 1,000 MG/100 ML INFUS..BTL IVPB SCH
[2018-12-20] MEDS ORDERED: Artificial Tears SOLN 15 ML BOTTLE BOTH EYES SCH
[2018-12-20 00:03] LABS: Albumin 2.1 g/dL (3.5-5.7); Albumin/Globulin Ratio 1.2 (1.1-2.2); Bilirubin,Total 0.8 mg/dL (0.3-1.0); Calcium 7.4 mg/dL (8.6-10.3); Globulin 1.8 g/dL (2.4-3.5); Magnesium 3.1 mg/dL (1.6-2.6); Potassium 5.2 mEq/L (3.5-5.1); Total Protein 3.9 g/dL (6.4-8.9)
[2018-12-20] MEDS: Norepinephrine 4 MG in D5% in Water 250 ML IVC SCH (00:43)
[2018-12-20 02:35] VITALS: BP 72/47
[2018-12-20] MEDS ORDERED: *HR* Atropine Sulfate 1 MG/10 ML SYRINGE ONE (02:44)
--- NOTE | 2018-12-20 02:48 | Event Note ---
Date of Encounter: 12/20/18 Time of Encounter: 02:49 Throughout the course the night, patient did demonstrate signs of worsening metabolic acidosis as well as respiratory failure. Patient was subsequently intubated. Family was present at bedside throughout the night. They did clearly declare wishes that patient would not undergo cardiopulmonary resuscitation in the event that he experiences cardiac arrest. His CODE STATUS was changed to DNR-CCA. Despite other resuscitative measures, patient did progressively become more bradycardic. He experienced a run of ventricular tachycardia followed shortly by asystole. Patient was pronounced by this physician at 0247. There was absence of heart sounds on auscultation, no pulse in the carotid arteries, fixed and dilated pupils, no breath sounds over the ventilator. Family was at bedside and primary day team will be updated.
[2018-12-20 02:56] LABS: ABG Base Excess -18 mEq/L (-2 to 3); ABG HCO3 12 mEq/L (21-27); ABG Oxygen Saturation 97 % (95-98); ABG PCO2 48 mmHg (35-45); ABG PH 7.02 pH Units (7.32-7.45); ABG PO2 126 mmHg (85-104); ABG TCO2 14 mEq/L (20-26); Blood Gas PEEP 5 cm H2O; Blood Gas VT 450 cc
[2018-12-20] MEDS ORDERED: Sodium Bicarbonate 150 MEQ in D5% in Water 1,000 ML IVC SCH (03:00)
[2018-12-20] MEDS ORDERED: Pantoprazole 40 MG VIAL IVP SCH (09:00)
[2018-12-20] MEDS ORDERED: Fluconazole 200 MG/100 ML 200 MG/100 ML BAG IVPB SCH (09:00)
--- NOTE | 2018-12-20 13:53 | Discharge Summary ---
<Demi Sanders - Last Filed: 12/20/18 13:58> Orders not resulted at time of discharge: Pending orders 12/14/18 AFB Culture, Respiratory [TB] Routine AFB Smear [TB] Routine Fungal Culture [MYC] Routine Legionella Culture [RM] Routine 12/14/18 09:52 Cytology [PTH] Routine 12/18/18 12:05 Culture,Blood [BC] Stat Date of Encounter: 12/20/18 Time of Encounter: 07:50 - Discharge Diagnosis (1) Hypotension Priority: Secondary Status: Acute Qualifiers: Hypotension type: hypotension due to hypovolemia Qualified Code(s): I95.89 - Other hypotension; E86.1 - Hypovolemia (2) Electrolyte imbalance Priority: Secondary Status: Acute (3) HAP (hospital-acquired pneumonia) Priority: Secondary (w) Status: Acute (4) Mucus plugging of bronchi Priority: Secondary Status: Acute (5) COPD (chronic obstructive pulmonary disease) Priority: Secondary Status: Acute Qualifiers: COPD type: chronic bronchitis Qualified Code(s): J41.0 - Simple chronic bronchitis (6) Dehiscence of fascia Priority: Primary Status: Acute Qualifiers: Encounter type: subsequent encounter Qualified Code(s): T81.30XD - Disruption of wound, unspecified, subsequent encounter (7) DVT prophylaxis Priority: Secondary Status: Acute - Discharge Medications Prescriptions: No Action Omeprazole [PriLOSEC] 20 mg PO QAM Clopidogrel [Plavix] 75 mg PO QAM Atorvastatin [Lipitor] 40 mg PO HS Fluticasone/Salmeterol [Advair 500-50 Diskus] 1 each IH BID Tamsulosin [Flomax] 0.4 mg PO BID Nitroglycerin [Nitrostat] 0.4 mg PO Q5M PRN PRN Reason: Chest Pain LORazepam [Ativan] 0.5 mg PO HS PRN PRN Reason: Anxiety Spironolactone [Aldactone] 25 mg PO QAM Furosemide [Lasix] 20 mg PO BID Rivaroxaban [Xarelto] 20 mg PO HS Albuterol Neb [Proventil Neb] 2.5 mg IH Q6H PRN PRN Reason: Shortness Of Breath Ferrous Sulfate 325 mg PO QAM Lisinopril 2.5 mg PO QAM Metoprolol XL (24 HR) Succ [Toprol Xl] 12.5 mg PO QAM Home Medications: Clopidogrel [Plavix] 75 mg PO QAM 01/25/16 [History] Omeprazole [PriLOSEC] 20 mg PO QAM 01/25/16 [History] Atorvastatin [Lipitor] 40 mg PO HS 07/17/16 [History] Fluticasone/Salmeterol [Advair 500-50 Diskus] 1 each IH BID 04/08/17 [History] Nitroglycerin [Nitrostat] 0.4 mg PO Q5M PRN 06/14/17 [History] Tamsulosin [Flomax] 0.4 mg PO BID 06/14/17 [History] LORazepam [Ativan] 0.5 mg PO HS PRN 07/12/17 [History] Spironolactone [Aldactone] 25 mg PO QAM 07/12/17 [History] Furosemide [Lasix] 20 mg PO BID 07/23/17 [History] Rivaroxaban [Xarelto] 20 mg PO HS 09/25/18 [History] Albuterol Neb [Proventil Neb] 2.5 mg IH Q6H PRN 12/10/18 [History] Ferrous Sulfate 325 mg PO QAM 12/10/18 [History] Lisinopril 2.5 mg PO QAM 12/10/18 [History] Metoprolol XL (24 HR) Succ [Toprol Xl] 12.5 mg PO QAM 12/10/18 [History] Allergies/Adverse Reactions: Allergy/AdvReac Type Severity Reaction Status Date / Time Amoxicillin Allergy Mild Rash Verified 12/10/18 11:45 Labs on day of discharge: Labs from last 24 hours 12/20/18 12/19/18 12/19/18 02:45 23:42 23:19 WBC RBC Hgb Hct MCV MCH MCHC RDW Plt Count MPV Seg Neutrophils % Band Neutrophils % Lymphocytes % Metamyelocytes % Myelocytes % Neutrophils # Lymphocytes # Nucleated RBCs/100 WBC Platelet Estimate ABG pH 7.02 L* D ABG pCO2 48 H ABG pO2 126 H D ABG HCO3 12 L ABG Total CO2 14 L ABG O2 Saturation 97 ABG Base Excess -18 L Respiration Rate 20 O2 Delivery Device Adult Vent Inspired O2 100.0 Tidal Volume 450 PEEP 5 Sodium Potassium Chloride Carbon Dioxide BUN Creatinine Est GFR ( Amer) Est GFR (Non-Af Amer) BUN/Creatinine Ratio Glucose POC Glucose 202 H Calculated Osmolality Lactic Acid Calcium Venous Ioniz Calcium 1.08 L Phosphorus Magnesium Total Bilirubin AST ALT Alkaline Phosphatase Serum Total Protein Albumin Globulin Albumin/Globulin Ratio Random Cortisol Person Notif of [facility] yennifer 12/19/18 12/19/18 12/19/18 23:12 23:12 22:57 WBC 49.8 H* D RBC 3.05 L Hgb 9.8 L Hct 30.3 L MCV 99.3 MCH 32.1 MCHC 32.3 RDW 13.7 Plt Count 387 MPV 10.3 Seg Neutrophils % 68.0 Band Neutrophils % 22.0 H Lymphocytes % 4.0 Metamyelocytes % 4.0 H Myelocytes % 2.0 H Neutrophils # 44.8 H Lymphocytes # 2.0 Nucleated RBCs/100 WBC 2.0 H Platelet Estimate Normal ABG pH ABG pCO2 ABG pO2 ABG HCO3 ABG Total CO2 ABG O2 Saturation ABG Base Excess Respiration Rate O2 Delivery Device Inspired O2 Tidal Volume PEEP Sodium 130 L Potassium 5.2 H Chloride 101 Carbon Dioxide 16 L BUN 59 H Creatinine 2.78 H Est GFR ( Amer) 27 L Est GFR (Non-Af Amer) 22 L BUN/Creatinine Ratio 21 Glucose 181 H POC Glucose Calculated Osmolality 291 Lactic Acid 6.5 H* Calcium 7.4 L Venous Ioniz Calcium Phosphorus 7.0 H Magnesium 3.1 H Total Bilirubin 0.8 AST 101 H ALT 35 Alkaline Phosphatase 102 Serum Total Protein 3.9 L Albumin 2.1 L Globulin 1.8 L Albumin/Globulin Ratio 1.2 Random Cortisol 35.3 Person Notif of [facility] 12/19/18 12/19/18 12/19/18 22:05 19:33 17:41 WBC RBC Hgb Hct MCV MCH MCHC RDW Plt Count MPV Seg Neutrophils % Band Neutrophils % Lymphocytes % Metamyelocytes % Myelocytes % Neutrophils # Lymphocytes # Nucleated RBCs/100 WBC Platelet Estimate ABG pH 7.21 L ABG pCO2 37 ABG pO2 71 L ABG HCO3 15 L ABG Total CO2 16 L ABG O2 Saturation 90 L ABG Base Excess -12 L Respiration Rate 14 O2 Delivery Device Adult Vent Inspired O2 Tidal Volume 500 PEEP 5 Sodium Potassium Chloride Carbon Dioxide BUN Creatinine Est GFR ( Amer) Est GFR (Non-Af Amer) BUN/Creatinine Ratio Glucose POC Glucose 158 H Calculated Osmolality Lactic Acid 3.2 H Calcium Venous Ioniz Calcium Phosphorus Magnesium Total Bilirubin AST ALT Alkaline Phosphatase Serum Total Protein Albumin Globulin Albumin/Globulin Ratio Random Cortisol Person Notif of Crit 12/19/18 12/19/18 17:41 15:42 WBC RBC Hgb Hct MCV MCH MCHC RDW Plt Count MPV Seg Neutrophils % Band Neutrophils % Lymphocytes % Metamyelocytes % Myelocytes % Neutrophils # Lymphocytes # Nucleated RBCs/100 WBC Platelet Estimate ABG pH ABG pCO2 ABG pO2 ABG HCO3 ABG Total CO2 ABG O2 Saturation ABG Base Excess Respiration Rate O2 Delivery Device Inspired O2 Tidal Volume PEEP Sodium 130 L Potassium 5.2 H D Chloride 102 Carbon Dioxide 17 L BUN 54 H Creatinine 2.46 H Est GFR ( Amer) 31 L Est GFR (Non-Af Amer) 25 L BUN/Creatinine Ratio 22 Glucose 116 H POC Glucose 69 L Calculated Osmolality 286 Lactic Acid Calcium 7.7 L Venous Ioniz Calcium Phosphorus Magnesium Total Bilirubin AST ALT Alkaline Phosphatase Serum Total Protein Albumin Globulin Albumin/Globulin Ratio Random Cortisol Person Notif of Crit Preliminary micro results at discharge 12/18/18 12:05 Blood Culture - Preliminary Peripheral Venipuncture Culture is incubating and being continuously monitored for growth. Final report to follow. 12/18/18 12:00 Blood Culture - Preliminary Peripheral Venipuncture Culture is incubating and being continuously monitored for growth. Final report to follow. 12/14/18 Unknown Fungal Culture - Preliminary Right Middle Lobe Lung Culture is incubating. - Impressions ITS Impressions Chest X-Ray 12/13/18 06:19 IMPRESSION: 1. Small right pleural effusion with mild bibasilar airspace disease, representing either atelectasis, pneumonia, or aspiration. 2. Additional mild curvilinear opacity within the mid left lung represents either additional atelectasis or pneumonia. 3. Small nodular densities overlying the right upper lung zone, possibly artifactual. However, as pulmonary nodules are in the differential, consider further characterization with a follow-up chest CT, preferably with contrast. D/ / Jace Gonzalez MD / Jace Gonzalez MD Interpreting Provider: Jace Gonzalez MD Abdomen/Pelvis CT 07/06/19 10:15 IMPRESSION: 1. Small bilateral pleural effusions with dense mucous plugging within the right middle and right lower lobe bronchi, causing complete consolidation and collapse of the right lower lobe and partial collapse of the right middle lobe. 2. Additional mild consolidative opacity within left lower lobe likely reflects passive atelectasis. 3. Emphysema. 4. Multiple scattered pulmonary nodules throughout both lungs, a few of which account for the previously described chest x-ray abnormality. The largest nodule lies within the posterior left upper lobe and measures 19 x 10 mm. Further follow-up of these nodules is as advised below. 5. Postoperative changes along the mid and lower anterior abdominal wall with a thin 10 x 2 cm fluid collection within the anterior subcutaneous soft tissues, most likely a postoperative seroma or hematoma. No definite postoperative abscess is identified within the subcutaneous soft tissues or peritoneal space. 6. No acute process within the abdomen or pelvis. Intraperitoneal free air is likely postoperative in etiology. RECOMMENDATIONS: Fleischner Society guidelines for follow-up and management of incidentally detected pulmonary nodules: Multiple Solid Nodules: Nodule size greater than 8 mm In a low-risk patient, CT at 3-6 months, then consider CT at 18-24 months. In a high-risk patient, CT at 3-6 months, then CT at 18-24 months. Radiology 2017 http://pubs.rsna.org/doi/full/[email or web address]/[email or web address] D/ / 12/13/2018 11:37:30 Jace Gonzalez MD / [facility] Interpreting Provider: Jace Gonzalez MD Chest CT 12/13/18 10:15 IMPRESSION: 1. Small bilateral pleural effusions with dense mucous plugging within the right middle and right lower lobe bronchi, causing complete consolidation and collapse of the right lower lobe and partial collapse of the right middle lobe. 2. Additional mild consolidative opacity within left lower lobe likely reflects passive atelectasis. 3. Emphysema. 4. Multiple scattered pulmonary nodules throughout both lungs, a few of which account for the previously described chest x-ray abnormality. The largest nodule lies within the posterior left upper lobe and measures 19 x 10 mm. Further follow-up of these nodules is as advised below. 5. Postoperative changes along the mid and lower anterior abdominal wall with a thin 10 x 2 cm fluid collection within the anterior subcutaneous soft tissues, most likely a postoperative seroma or hematoma. No definite postoperative abscess is identified within the subcutaneous soft tissues or peritoneal space. 6. No acute process within the abdomen or pelvis. Intraperitoneal free air is likely postoperative in etiology. RECOMMENDATIONS: Fleischner Society guidelines for follow-up and management of incidentally detected pulmonary nodules: Multiple Solid Nodules: Nodule size greater than 8 mm In a low-risk patient, CT at 3-6 months, then consider CT at 18-24 months. In a high-risk patient, CT at 3-6 months, then CT at 18-24 months. Radiology 2017 http://pubs.rsna.org/doi/full/[email or web address]/[email or web address] D/ / 12/13/2018 11:37:30 Jace Gonzalez MD / [facility] Interpreting Provider: Jace Gonzalez MD Abdomen/Pelvis CT 12/16/18 08:00 IMPRESSION: 1. Postoperative changes along the mid to lower abdomen with small bowel resection. Previously noted thin fluid collection along the subcutaneous soft tissues is no longer visualized however dehiscence of the underlying fascia has progressed with herniation of fat and a small bowel anastomosis in this region. No bowel obstruction. 2. Colonic dilation likely related to ileus. 3. Small volume ascites some of which is high density within the pelvis and may reflect hemorrhagic or proteinaceous material. 4. Anasarca. 5. Improving right lower lobe pneumonia. 6. High-density material within the gallbladder either stones or sludge. The findings were sent to the Radiology Results Communication Center at 9:46 am on 12/16/2018to be communicated to a licensed caregiver. D/ / 12/16/2018 10:07:39 Lisa García MD / Capri Wilson Interpreting Provider: Lisa García MD Chest X-Ray 12/18/18 11:54 IMPRESSION: Tiny right pleural effusion which is improving D/ / Roberth Hinton MD / Roberth Hinton MD Interpreting Provider: Roberth Hinton MD Chest X-Ray 12/18/18 15:56 IMPRESSION: Right upper extremity PICC line with tip in the SVC. Otherwise stable exam. D/ / Abimael Lancaster MD / Abimael Lancaster MD Interpreting Provider: Abimael Lancaster MD Abdomen/Pelvis CT 12/19/18 11:00 IMPRESSION: 1. Persistent small bilateral pleural effusions, with partial interval clearing of right lower lobe airspace consolidation in comparison with the prior exam, representing either passive atelectasis, aspiration, or pneumonia. Mild curvilinear opacity within the left lower lobe remains, atelectasis favored over aspiration pneumonia. 2. Stable unchanged scattered pulmonary nodules throughout both lungs are most likely infectious or inflammatory in etiology. However, continued follow-up is suggested as was stated on the previous CT study of 12/13/2018. 3. Chronic emphysema. 4. Postoperative changes within the abdomen, with a MISA drain in place within the lower mid abdomen, and adjacent postoperative change, though no evidence of a walled-off fluid collection or abscess. 5. Interval development of moderate wall thickening of the entirety of the colon, which remains moderately dilated. This most likely represents an infectious or inflammatory colitis, to include C. diff colitis. Toxic megacolon is considered unlikely, though not excluded. 6. Postoperative changes along the subcutaneous aspect of the abdominal and pelvic yeager, without evidence of focal drainable fluid collection or abscess. 7. Mild nonspecific distention of the gallbladder. If there is history of right upper quadrant pain, consider further characterization with a right upper quadrant ultrasound. D/ / 12/19/2018 12:21:08 Jace Gonzalez MD / [facility] Wilson Interpreting Provider: Jace Gonzalez MD Chest CT 12/19/18 11:00 IMPRESSION: 1. Persistent small bilateral pleural effusions, with partial interval clearing of right lower lobe airspace consolidation in comparison with the prior exam, representing either passive atelectasis, aspiration, or pneumonia. Mild curvilinear opacity within the left lower lobe remains, atelectasis favored over aspiration pneumonia. 2. Stable unchanged scattered pulmonary nodules throughout both lungs are most likely infectious or inflammatory in etiology. However, continued follow-up is suggested as was stated on the previous CT study of 12/13/2018. 3. Chronic emphysema. 4. Postoperative changes within the abdomen, with a MISA drain in place within the lower mid abdomen, and adjacent postoperative change, though no evidence of a walled-off fluid collection or abscess. 5. Interval development of moderate wall thickening of the entirety of the colon, which remains moderately dilated. This most likely represents an infectious or inflammatory colitis, to include C. diff colitis. Toxic megacolon is considered unlikely, though not excluded. 6. Postoperative changes along the subcutaneous aspect of the abdominal and pelvic yeager, without evidence of focal drainable fluid collection or abscess. 7. Mild nonspecific distention of the gallbladder. If there is history of right upper quadrant pain, consider further characterization with a right upper quadrant ultrasound. D/ / 12/19/2018 12:21:08 Jace Gonzalez MD / Capri Wilson Interpreting Provider: Jace Gonzalez MD Chest X-Ray 12/19/18 20:47 IMPRESSION: Right basilar opacities. Satisfactory position of the endotracheal tube. D/ / Paul Zhang / Paul Zhang Interpreting Provider: Paul Zhang X-Ray 12/19/18 20:47 IMPRESSION: Enteric tube with tip likely within the distal stomach. Distended loops colon which show wall thickening, findings which can be seen with toxic colitis. D/ / Mary Lyons Cha, MD / Mary Lyons Cha, MD Interpreting Provider: Mary Lyons Cha, MD Date of admission: 12/10/18 18:25 Primary care physician: Dane Justin MD Consults: 12/10/18 18:43 Consult to Striping Machine Operator [CONS] Routine Reason for SW Consult: [employer] oxygen cont 2L. Possible d/c with IV antibiotics. 12/11/18 11:47 Consult to Physical Therapy [CONS] Routine Comment: Evaluate, develop and implement POC Reason for Consult: PT Does patient have active BEDREST order?: No Is patient medically & hemodynamically stable?: Yes Patient assessed for mobility or mobilized this visit?: Yes OT [Consult to Occupational Therapy] [CONS] Routine Comment: Evaluate, develop and implement POC Reason for Consult: OT Does patient have active BEDREST order?: No Is patient medically & hemodynamically stable?: Yes Patient assessed for mobility or mobilized this visit?: Yes 12/13/18 10:21 Consult to Respiratory Therapy [CONS] Stat Reason for Consult: Add Acapella and Mucomyst Q4H. aggressive pulm toileting Time Notified: 10:22 Call Completed: No 12/13/18 12:36 Consult to Hospitalist [CONS] Stat Consulting Provider: Hospitalist Rosana Reason for Consult: PNA (see CT) and chronic condition management Time Notified: 12:37 Call Completed: Yes 12/13/18 16:46 Consult to Pulmonology [CONS] Routine Consulting Provider: Pulm Crit Care & Sleep [place] Reason for Consult: R ML/LL collapse Call Completed: Yes 12/15/18 09:34 Consult to Case Management [CONS] Routine Comment: DC planning 12/18/18 12:55 Consult to Critical Care [CONS] Stat Consulting Provider: Pulm Crit Care [facility] Sleep [place] Reason for Consult: post-op shock ?septic vs. hypovolemic Call Completed: Yes 12/18/18 13:55 PICC LINE [Consult to Invasive Line Access Team] [CONS] Stat Reason for Consult: start TPN, need central line Line Type: PICC PICC line indications: Parental nutrition 12/18/18 15:58 Consult to Invasive Line Access Team [CONS] Routine Reason for Consult: Picc Line Insertion Line Type: PICC 12/19/18 13:53 Consult to Nutrition [CONS] Stat Comment: Consulting Provider: NUTRITION Reason for Dietary Consult: TPN Start and Manage Discharging clinician: Demi Sanders Anticipated date of discharge: 12/20/18 - Patient Status Disposition: - Discharge Instructions Follow Up With: Dane Justin MD [Primary Care Provider] - Carlita Mccabe CNP [Advanced Practice Nurse] - 12/26/18 10:15 am - Hospital Course Hospital course: Mr. Yeung is a 83 year old male with history of arthritis, COPD, CAD, DVT, hyperlipidemia, hypertension, IL and small bowel resection who presented on 12/15 for planned surgery to repair a defect in his abdominal wall. The patient underwent surgery on 01/06/19 with adequate repair. Afterwards the patient was found to have pneumonia and was treated with vancomycin and Levaquin, bronchoscopy was performed on 12/15/18 and he was found to have a mucous plug. Continued on antibiotics and on the night of 12/15/18 he had an episode of coughing and he was noted to have dehiscence of his surgical site and his mesh was infected. The patient was taken to the operating room on 12/16/18 for repair of the wound dehiscence. Following the procedure the patient was continually monitored and had an episode of hypotension down to the 60s systolic he was therefore transferred to the intensive care unit. The patient was placed on broad-spectrum antibiotics for suspected intra-abdominal source and continued pneumonia. The patients blood pressure did have response to fluids. During this time the patient's lactate continued to stay and below the normal range. Her cousins had an 0.64. Patient was treated with bronchodilators for possible COPD component of his increased work of breathing. On 12/18/18 the patient had upward trending of his white blood cell count and there was concern for C. difficile but he had been given significant laxatives following surgery in this complicated the picture of his diarrhea. It was covered with oral vancomycin. CT abdomen showed diffuse inflammatory colitis. On the night of 12/19/18 the patient began to develop difficulty obtaining a SpO2 but ABG was stable. Repeat labs in the afternoon of 12/19/18 showed acute increase in his lactic acidosis up to 3.2 hyperkalemia up to 5.2. He continued to have increased work of breathing and repeat ABG showed worsening acidosis. Family was present at bedside and agreed with plan for intubation. Lactate climbed to 6.5 and laboratory evaluation showed significant increase in his leukocytosis up to 49.8, likely secondary to ischemic colitis given acuity and timeframe of decompensation. The patient continued to have worsening hypotension and was therefore started on vasopressors. The patient had no significant response and became bradycardic and then eventually transitioned to V. tach and asystole. Family was present at bedside and did not wish for further resuscitative measures. Patient was pronounced at 0247 on 12/20/18. - Time Spent with Patient Total time spent providing and/or coordinating discharge services: Physical Examination General appearance: comatose Eyes: other Effort: other (no spontaneous breathing) Cardiovascular: other (no heart sounds on auscultation) Integumentary: other (cool) Extremities: cool other (pupils fixed and nonreactive) <Eliana Call - Last Filed: 12/20/18 23:20> Orders not resulted at time of discharge: Pending orders 12/14/18 AFB Culture, Respiratory [TB] Routine AFB Smear [TB] Routine Fungal Culture [MYC] Routine Legionella Culture [RM] Routine 12/14/18 09:52 Cytology [PTH] Routine 12/18/18 12:05 Culture,Blood [BC] Stat Date of Encounter: 12/20/18 - Discharge Diagnosis (1) Hypotension Status: Acute Qualifiers: Hypotension type: hypotension due to hypovolemia Qualified Code(s): I95.89 - Other hypotension; E86.1 - Hypovolemia (2) Acute respiratory failure Status: Acute Qualifiers: Respiratory failure complication: hypoxia Qualified Code(s): J96.01 - Acute respiratory failure with hypoxia (3) Mucus plugging of bronchi Status: Acute (4) COPD (chronic obstructive pulmonary disease) Status: Acute Qualifiers: COPD type: chronic bronchitis Qualified Code(s): J41.0 - Simple chronic bronchitis (5) HAP (hospital-acquired pneumonia) Status: Acute Labs on day of discharge: Labs from last 24 hours 12/20/18 12/19/18 12/19/18 02:45 23:42 23:19 WBC RBC Hgb Hct MCV MCH MCHC RDW Plt Count MPV Seg Neutrophils % Band Neutrophils % Lymphocytes % Metamyelocytes % Myelocytes % Neutrophils # Lymphocytes # Nucleated RBCs/100 WBC Platelet Estimate ABG pH 7.02 L* D ABG pCO2 48 H ABG pO2 126 H D ABG HCO3 12 L ABG Total CO2 14 L ABG O2 Saturation 97 ABG Base Excess -18 L Respiration Rate 20 O2 Delivery Device Adult Vent Inspired O2 100.0 Tidal Volume 450 PEEP 5 Sodium Potassium Chloride Carbon Dioxide BUN Creatinine Est GFR ( Amer) Est GFR (Non-Af Amer) BUN/Creatinine Ratio Glucose POC Glucose 202 H Calculated Osmolality Lactic Acid Calcium Venous Ioniz Calcium 1.08 L Phosphorus Magnesium Total Bilirubin AST ALT Alkaline Phosphatase Serum Total Protein Albumin Globulin Albumin/Globulin Ratio Random Cortisol Person Notif of [facility] yennifer 12/19/18 12/19/18 12/19/18 23:12 23:12 22:57 WBC 49.8 H* D RBC 3.05 L Hgb 9.8 L Hct 30.3 L MCV 99.3 MCH 32.1 MCHC 32.3 RDW 13.7 Plt Count 387 MPV 10.3 Seg Neutrophils % 68.0 Band Neutrophils % 22.0 H Lymphocytes % 4.0 Metamyelocytes % 4.0 H Myelocytes % 2.0 H Neutrophils # 44.8 H Lymphocytes # 2.0 Nucleated RBCs/100 WBC 2.0 H Platelet Estimate Normal ABG pH ABG pCO2 ABG pO2 ABG HCO3 ABG Total CO2 ABG O2 Saturation ABG Base Excess Respiration Rate O2 Delivery Device Inspired O2 Tidal Volume PEEP Sodium 130 L Potassium 5.2 H Chloride 101 Carbon Dioxide 16 L BUN 59 H Creatinine 2.78 H Est GFR ( Amer) 27 L Est GFR (Non-Af Amer) 22 L BUN/Creatinine Ratio 21 Glucose 181 H POC Glucose Calculated Osmolality 291 Lactic Acid 6.5 H* Calcium 7.4 L Venous Ioniz Calcium Phosphorus 7.0 H Magnesium 3.1 H Total Bilirubin 0.8 AST 101 H ALT 35 Alkaline Phosphatase 102 Serum Total Protein 3.9 L Albumin 2.1 L Globulin 1.8 L Albumin/Globulin Ratio 1.2 Random Cortisol 35.3 Person Notif of Crit 12/19/18 12/19/18 19:33 15:42 WBC RBC Hgb Hct MCV MCH MCHC RDW Plt Count MPV Seg Neutrophils % Band Neutrophils % Lymphocytes % Metamyelocytes % Myelocytes % Neutrophils # Lymphocytes # Nucleated RBCs/100 WBC Platelet Estimate ABG pH ABG pCO2 ABG pO2 ABG HCO3 ABG Total CO2 ABG O2 Saturation ABG Base Excess Respiration Rate O2 Delivery Device Inspired O2 Tidal Volume PEEP Sodium Potassium Chloride Carbon Dioxide BUN Creatinine Est GFR ( Amer) Est GFR (Non-Af Amer) BUN/Creatinine Ratio Glucose POC Glucose 158 H 69 L Calculated Osmolality Lactic Acid Calcium Venous Ioniz Calcium Phosphorus Magnesium Total Bilirubin AST ALT Alkaline Phosphatase Serum Total Protein Albumin Globulin Albumin/Globulin Ratio Random Cortisol Person Notif of Crit Preliminary micro results at discharge 12/18/18 12:05 Blood Culture - Preliminary Peripheral Venipuncture Culture is incubating and being continuously monitored for growth. Final report to follow. 12/18/18 12:00 Blood Culture - Preliminary Peripheral Venipuncture Culture is incubating and being continuously monitored for growth. Final report to follow. 12/14/18 Unknown Fungal Culture - Preliminary Right Middle Lobe Lung Culture is incubating. - Impressions ITS Impressions Chest X-Ray 12/13/18 06:19 IMPRESSION: 1. Small right pleural effusion with mild bibasilar airspace disease, representing either atelectasis, pneumonia, or aspiration. 2. Additional mild curvilinear opacity within the mid left lung represents either additional atelectasis or pneumonia. 3. Small nodular densities overlying the right upper lung zone, possibly artifactual. However, as pulmonary nodules are in the differential, consider further characterization with a follow-up chest CT, preferably with contrast. D/ / Jace Gonzalez MD / Jace Gonzalez MD Interpreting Provider: Jace Gonzalez MD Abdomen/Pelvis CT 12/13/18 10:15 IMPRESSION: 1. Small bilateral pleural effusions with dense mucous plugging within the right middle and right lower lobe bronchi, causing complete consolidation and collapse of the right lower lobe and partial collapse of the right middle lobe. 2. Additional mild consolidative opacity within left lower lobe likely reflects passive atelectasis. 3. Emphysema. 4. Multiple scattered pulmonary nodules throughout both lungs, a few of which account for the previously described chest x-ray abnormality. The largest nodule lies within the posterior left upper lobe and measures 19 x 10 mm. Further follow-up of these nodules is as advised below. 5. Postoperative changes along the mid and lower anterior abdominal wall with a thin 10 x 2 cm fluid collection within the anterior subcutaneous soft tissues, most likely a postoperative seroma or hematoma. No definite postoperative abscess is identified within the subcutaneous soft tissues or peritoneal space. 6. No acute process within the abdomen or pelvis. Intraperitoneal free air is likely postoperative in etiology. RECOMMENDATIONS: Fleischner Society guidelines for follow-up and management of incidentally detected pulmonary nodules: Multiple Solid Nodules: Nodule size greater than 8 mm In a low-risk patient, CT at 3-6 months, then consider CT at 18-24 months. In a high-risk patient, CT at 3-6 months, then CT at 18-24 months. Radiology 2017 http://pubs.[facility]na.org/doi/full/10.1148/radiol.[email or web address] D/ / 12/13/2018 11:37:30 Jace Gonzalez MD / benjamin Interpreting Provider: Jace Gonzalez MD Chest CT 12/13/18 10:15 IMPRESSION: 1. Small bilateral pleural effusions with dense mucous plugging within the right middle and right lower lobe bronchi, causing complete consolidation and collapse of the right lower lobe and partial collapse of the right middle lobe. 2. Additional mild consolidative opacity within left lower lobe likely reflects passive atelectasis. 3. Emphysema. 4. Multiple scattered pulmonary nodules throughout both lungs, a few of which account for the previously described chest x-ray abnormality. The largest nodule lies within the posterior left upper lobe and measures 19 x 10 mm. Further follow-up of these nodules is as advised below. 5. Postoperative changes along the mid and lower anterior abdominal wall with a thin 10 x 2 cm fluid collection within the anterior subcutaneous soft tissues, most likely a postoperative seroma or hematoma. No definite postoperative abscess is identified within the subcutaneous soft tissues or peritoneal space. 6. No acute process within the abdomen or pelvis. Intraperitoneal free air is likely postoperative in etiology. RECOMMENDATIONS: Fleischner Society guidelines for follow-up and management of incidentally detected pulmonary nodules: Multiple Solid Nodules: Nodule size greater than 8 mm In a low-risk patient, CT at 3-6 months, then consider CT at 18-24 months. In a high-risk patient, CT at 3-6 months, then CT at 18-24 months. Radiology 2017 http://pubs.[facility]na.org/doi/full/10.1148/[email or web address] D/ / 12/13/2018 11:37:30 Jace Gonzalez MD / benjamin Interpreting Provider: Jace Gonzalez MD Abdomen/Pelvis CT 12/16/18 08:00 IMPRESSION: 1. Postoperative changes along the mid to lower abdomen with small bowel resection. Previously noted thin fluid collection along the subcutaneous soft tissues is no longer visualized however dehiscence of the underlying fascia has progressed with herniation of fat and a small bowel anastomosis in this region. No bowel obstruction. 2. Colonic dilation likely related to ileus. 3. Small volume ascites some of which is high density within the pelvis and may reflect hemorrhagic or proteinaceous material. 4. Anasarca. 5. Improving right lower lobe pneumonia. 6. High-density material within the gallbladder either stones or sludge. The findings were sent to the Radiology Results Communication [facility] at 9:46 am on 12/16/2018to be communicated to a licensed caregiver. D/ / 12/16/2018 10:07:39 Lisa García MD / Capri Wilson Interpreting Provider: Lisa García MD Chest X-Ray 12/18/18 11:54 IMPRESSION: Tiny right pleural effusion which is improving D/ / Roberth Hinton MD / Roberth Hinton MD Interpreting Provider: Roberth Hinton MD Chest X-Ray 12/18/18 15:56 IMPRESSION: Right upper extremity PICC line with tip in the SVC. Otherwise stable exam. D/ / Abimael Lancaster MD / Abimael Lancaster MD Interpreting Provider: Abimael Lancaster MD Abdomen/Pelvis CT 12/19/18 11:00 IMPRESSION: 1. Persistent small bilateral pleural effusions, with partial interval clearing of right lower lobe airspace consolidation in comparison with the prior exam, representing either passive atelectasis, aspiration, or pneumonia. Mild curvilinear opacity within the left lower lobe remains, atelectasis favored over aspiration or pneumonia. 2. Stable unchanged scattered pulmonary nodules throughout both lungs are most likely infectious or inflammatory in etiology. However, continued follow-up is suggested as was stated on the previous chest CT study of 12/13/2018. 3. Chronic emphysema. 4. Postoperative changes within the abdomen, with a MISA drain in place within the lower mid abdomen, and adjacent postoperative change, though no evidence of a walled-off fluid collection or intra-abdominal abscess. 5. Interval development of moderate wall thickening of the entirety of the colon, which remains moderately dilated. This most likely represents an infectious or inflammatory colitis, to include C. diff. colitis. Toxic megacolon is considered unlikely, though not excluded. 6. Postoperative changes along the subcutaneous aspect of the abdominal and pelvic yeager, without evidence of focal drainable fluid collection or abscess. 7. Mild nonspecific distention of the gallbladder. If there is a history of right upper quadrant pain, consider further characterization with a right upper quadrant ultrasound. D/ / 12/19/2018 12:21:08 Jace Gonzalez MD / Capri Wilson Interpreting Provider: Jace Gonzalez MD Chest CT 12/19/18 11:00 IMPRESSION: 1. Persistent small bilateral pleural effusions, with partial interval clearing of right lower lobe airspace consolidation in comparison with the prior exam, representing either passive atelectasis, aspiration, or pneumonia. Mild curvilinear opacity within the left lower lobe remains, atelectasis favored over aspiration or pneumonia. 2. Stable unchanged scattered pulmonary nodules throughout both lungs are most likely infectious or inflammatory in etiology. However, continued follow-up is suggested as was stated on the previous chest CT study of 12/13/2018. 3. Chronic emphysema. 4. Postoperative changes within the abdomen, with a MISA drain in place within the lower mid abdomen, and adjacent postoperative change, though no evidence of a walled-off fluid collection or intra-abdominal abscess. 5. Interval development of moderate wall thickening of the entirety of the colon, which remains moderately dilated. This most likely represents an infectious or inflammatory colitis, to include C. diff. colitis. Toxic megacolon is considered unlikely, though not excluded. 6. Postoperative changes along the subcutaneous aspect of the abdominal and pelvic yeager, without evidence of focal drainable fluid collection or abscess. 7. Mild nonspecific distention of the gallbladder. If there is a history of right upper quadrant pain, consider further characterization with a right upper quadrant ultrasound. D/ / 12/19/2018 12:21:08 Jace Gonzalez MD / Capri Wilson Interpreting Provider: Jace Gonzalez MD Chest X-Ray 12/19/18 20:47 IMPRESSION: Right basilar opacities. Satisfactory position of the endotracheal tube. D/ / Paul Zhang / Paul Zhang Interpreting Provider: Paul Zhang X-Ray 12/19/18 20:47 IMPRESSION: Enteric tube with tip likely within the distal stomach. Distended loops colon which show wall thickening, findings which can be seen with toxic colitis. D/ / Mary Lyons Cha, MD / Mary Lyons Cha, MD Interpreting Provider: Mary Lyons Cha, MD Date of admission: 12/10/18 18:25 Primary care physician: Dane Justin MD Consults: 12/10/18 18:43 Consult to Striping Machine Operator [CONS] Routine Reason for SW Consult: [employer] oxygen cont 2L. Possible d/c with IV antibiotics. 12/11/18 11:47 Consult to Physical Therapy [CONS] Routine Comment: Evaluate, develop and implement POC Reason for Consult: PT Does patient have active BEDREST order?: No Is patient medically & hemodynamically stable?: Yes Patient assessed for mobility or mobilized this visit?: Yes OT [Consult to Occupational Therapy] [CONS] Routine Comment: Evaluate, develop and implement POC Reason for Consult: OT Does patient have active BEDREST order?: No Is patient medically & hemodynamically stable?: Yes Patient assessed for mobility or mobilized this visit?: Yes 12/13/18 10:21 Consult to Respiratory Therapy [CONS] Stat Reason for Consult: Add Acapella and Mucomyst Q4H. aggressive pulm toileting Time Notified: 10:22 Call Completed: No 12/13/18 12:36 Consult to Hospitalist [CONS] Stat Consulting Provider: Hospitalist Rosana Reason for Consult: PNA (see CT) and chronic condition management Time Notified: 12:37 Call Completed: Yes 12/13/18 16:46 Consult to Pulmonology [CONS] Routine Consulting Provider: Pulm Crit Care & Sleep [place]u Reason for Consult: R ML/LL collapse Call Completed: Yes 12/15/18 09:34 Consult to Case Management [CONS] Routine Comment: DC planning 12/18/18 12:55 Consult to Critical Care [CONS] Stat Consulting Provider: Pulm Crit Care & Sleep [place] Reason for Consult: post-op shock ?septic vs. hypovolemic Call Completed: Yes 12/18/18 13:55 PICC LINE [Consult to Invasive Line Access Team] [CONS] Stat Reason for Consult: start TPN, need central line Line Type: PICC PICC line indications: Parental nutrition 12/18/18 15:58 Consult to Invasive Line Access Team [CONS] Routine Reason for Consult: Picc Line Insertion Line Type: PICC 12/19/18 13:53 Consult to Nutrition [CONS] Stat Comment: Consulting Provider: NUTRITION Reason for Dietary Consult: TPN Start and Manage - Hospital Course Hospital course: Mr. Yeung is a 83 year old male had extensive intra-abdominal surgery with mesh repair which got infected had right lower lobe pneumonia underwent bronchoscopy with BAL. Patient decompensated with CT abdomen shows colitis suspicious of infectious sinusitis with ischemic colitis patient decompensated overnight within 6 to 12hrs hospital course documented above by the dictating resident is an accurate description of the hospital course. - Time Spent with Patient Total time spent providing and/or coordinating discharge services:
== END 2018-12-20 02:47 | disposition expired | DRG 901 ==
LOC: SAMDAY 10:20 → 3ANU 10:20 → ICNU 12-18 13:45
PROVIDERS: ADMIT Surgery; ATTEND Surgery